=== PATIENT | female | born 1965 | race Caucasian/White ===

== ENCOUNTER → 2018-02-10 16:01 | Outpatient (CLI) | payer BC, SELFPAY ==
[2018-02-10 17:39] LABS: Absolute Lymphocyte Count 2.56 X10^3/ul (0.83-4.51); Absolute Neutrophil Count 3.1 X10^3/uL (2.0-7.7); Basophil# 0.03 X10^3/uL; Basophil% 0.5 % (0-1); Eosinophil# 0.04 X10^3/uL; Eosinophils% 0.6 % (0-5); Hematocrit 36.2 % (37-47); Hemoglobin 12.1 g/dl (12.0-15.0); Lymphocyte # 2.56 X10^3/ul (4.0); Lymphocyte % 41.2 % (19-41); Mean Corp Hgb Conc 33.4 g/gl (32-36); Mean Corpuscular Hgb 33.2 pg (27.0-32.0); Mean Corpuscular Volume 99.2 fL (81-99); Mean Platelet Vol. 10.7 fl (6.2-12.0); Monocyte# 0.44 X10^3/uL; Monocyte% 7.1 % (0-10); Neutrophil # 3.13 X10^3/uL (2.7-7.7); Neutrophil % 50.4 % (47-70); Platelet Count 222 K/mm3 (150-450); RBC Distribution Width CV 13.6 % (11.6-14.6); RBC Distribution Width SD 47.4 fl (35.1-43.9); Red Blood Count 3.65 M/mm3 (4.2-5.4); White Blood Count 6.2 K/mm3 (4.4-11.0)
[2018-02-10 17:47] LABS: ALB/GLOB Ratio 1.3 RATIO (0.9-2.4); AST(SGOT) 27 U/L (15-37); Alanine Aminotransfer ALT/SGPT 35 U/L (13-56); Albumin, Serum 4.2 g/dL (3.2-5.0); Alkaline Phosphatase 56 U/L (45-117); Anion Gap 7 (5-15); BUN 13 mg/dL (7-18); BUN/Creat Ratio 17.4 RATIO (10-20); Calcium,Total 8.8 mg/dL (8.5-10.1); Chloride 103 mmol/L (98-107); Creatinine, Serum 0.75 mg/dL (0.55-1.02); EST Glomerular Filtration Rate 87 mL/min (>60); Est Glom Filt Rate - Afr Amer 105 mL/min (>60); Globulin 3.2 g/dL (2.2-4.2); Glucose 90 mg/dL (74-106); Potassium 4.2 mmol/L (3.5-5.1); Protein, Total 7.4 g/dL (6.4-8.2); Sodium Level 137 mmol/L (136-145)
[2018-02-10 17:52] LABS: POSITIVE COUNT NO; POSITIVE DIFFERENTIAL NO; POSITIVE MORPHOLOGY NO
== END ==
PROVIDERS: Family Provider Family Medicine; PCP Family Medicine; Visit Provider Internal Medicine Rheumatology
DX: M06.09 Rheumatoid arthritis without rheumatoid factor, multiple sites (principal); Z79.899 Other long term (current) drug therapy; Q66.7 Congenital pes cavus
CPT/HCPCS: 36415; 80053; 85025

== ENCOUNTER → 2018-05-05 15:45 | Outpatient (CLI) | payer BC, SELFPAY ==
[2018-05-05 17:32] LABS: Absolute Lymphocyte Count 2.97 X10^3/ul (0.83-4.51); Absolute Neutrophil Count 3.2 X10^3/uL (2.0-7.7); Basophil# 0.02 X10^3/uL; Basophil% 0.3 % (0-1); Eosinophil# 0.04 X10^3/uL; Eosinophils% 0.6 % (0-5); Hematocrit 37.8 % (37-47); Hemoglobin 12.7 g/dl (12.0-15.0); Lymphocyte # 2.97 X10^3/ul (4.0); Mean Corp Hgb Conc 33.6 g/gl (32-36); Mean Corpuscular Hgb 33.2 pg (27.0-32.0); Mean Corpuscular Volume 98.7 fL (81-99); Mean Platelet Vol. 10.8 fl (6.2-12.0); Monocyte# 0.37 X10^3/uL; Monocyte% 5.6 % (0-10); Neutrophil # 3.19 X10^3/uL (2.7-7.7); Neutrophil % 48.3 % (47-70); Platelet Count 216 K/mm3 (150-450); RBC Distribution Width CV 13.3 % (11.6-14.6); RBC Distribution Width SD 46.9 fl (35.1-43.9); Red Blood Count 3.83 M/mm3 (4.2-5.4); White Blood Count 6.6 K/mm3 (4.4-11.0)
[2018-05-05 17:40] LABS: POSITIVE COUNT NO; POSITIVE DIFFERENTIAL NO; POSITIVE MORPHOLOGY NO
[2018-05-05 17:51] LABS: ALB/GLOB Ratio 1.4 RATIO (0.9-2.4); AST(SGOT) 31 U/L (15-37); Alanine Aminotransfer ALT/SGPT 44 U/L (13-56); Albumin, Serum 4.4 g/dL (3.2-5.0); Alkaline Phosphatase 50 U/L (45-117); Anion Gap 9 (5-15); BUN 17 mg/dL (7-18); BUN/Creat Ratio 20.2 RATIO (10-20); Calcium,Total 9.8 mg/dL (8.5-10.1); Chloride 103 mmol/L (98-107); Creatinine, Serum 0.84 mg/dL (0.55-1.02); EST Glomerular Filtration Rate 76 mL/min (>60); Est Glom Filt Rate - Afr Amer 92 mL/min (>60); Globulin 3.2 g/dL (2.2-4.2); Glucose 90 mg/dL (74-106); Potassium 3.9 mmol/L (3.5-5.1); Protein, Total 7.6 g/dL (6.4-8.2); Sodium Level 140 mmol/L (136-145)
== END ==
PROVIDERS: Family Provider Family Medicine; PCP Family Medicine; Visit Provider Internal Medicine Rheumatology
DX: M06.09 Rheumatoid arthritis without rheumatoid factor, multiple sites (principal); Z79.899 Other long term (current) drug therapy; Q66.7 Congenital pes cavus
CPT/HCPCS: 36415; 80053; 85025

== ENCOUNTER → 2018-07-31 07:35 | Outpatient (CLI) | payer BC, SELFPAY ==
[2018-07-31 08:08] LABS: Absolute Neutrophil Count 2.3 X10^3/uL (2.0-7.7); Basophil# 0.02 X10^3/uL; Basophil% 0.4 % (0-1); Eosinophil# 0.14 X10^3/uL; Eosinophils% 2.6 % (0-5); Hematocrit 38.5 % (37-47); Hemoglobin 12.9 g/dl (12.0-15.0); Lymphocyte % 46.7 % (19-41); Mean Corp Hgb Conc 33.5 g/gl (32-36); Mean Corpuscular Hgb 32.7 pg (27.0-32.0); Mean Corpuscular Volume 97.5 fL (81-99); Mean Platelet Vol. 11.2 fl (6.2-12.0); Monocyte% 7.5 % (0-10); Neutrophil # 2.29 X10^3/uL (2.7-7.7); Neutrophil % 42.8 % (47-70); Platelet Count 236 K/mm3 (150-450); RBC Distribution Width CV 13.2 % (11.6-14.6); RBC Distribution Width SD 46.1 fl (35.1-43.9); Red Blood Count 3.95 M/mm3 (4.2-5.4); White Blood Count 5.4 K/mm3 (4.4-11.0)
[2018-07-31 08:18] LABS: POSITIVE COUNT NO; POSITIVE DIFFERENTIAL NO; POSITIVE MORPHOLOGY NO
[2018-07-31 08:25] LABS: ALB/GLOB Ratio 1.2 RATIO (0.9-2.4); AST(SGOT) 20 U/L (15-37); Alanine Aminotransfer ALT/SGPT 42 U/L (13-56); Alkaline Phosphatase 63 U/L (45-117); Anion Gap 10 (5-15); BUN 14 mg/dL (7-18); BUN/Creat Ratio 18.5 RATIO (10-20); Calcium,Total 9.1 mg/dL (8.5-10.1); Chloride 105 mmol/L (98-107); Cholesterol 201 mg/dL (200); Creatinine, Serum 0.76 mg/dL (0.55-1.02); EST Glomerular Filtration Rate 86 mL/min (>60); Est Glom Filt Rate - Afr Amer 104 mL/min (>60); Globulin 3.4 g/dL (2.2-4.2); Glucose 92 mg/dL (74-106); High Density Lipoprotein 65 mg/dL; Potassium 3.8 mmol/L (3.5-5.1); Protein, Total 7.4 g/dL (6.4-8.2); Sodium Level 143 mmol/L (136-145); Triglycerides 125 mg/dL; Very Low Density Lipoprotein 25 mg/dL (5-40)
--- NOTE | 2018-07-31 15:51 | RAD_ITS ---
STUDY: X-RAY CHEST REASON FOR EXAM: Female, 52 years old. RA TECHNIQUE: PA and lateral views of the chest. COMPARISON: March 12, 2017 chest x-ray FINDINGS: The lungs are clear and expanded. There is no demonstrated pleural abnormality. Normal size heart. Normal mediastinum and maggie. Normal visualized pulmonary arteries. Normal visualized aortic arch and descending thoracic aorta. Normal visualized thoracic spine. Normal visualized ribs, clavicles, and shoulders. There is no demonstrated abnormality of the visualized soft tissue structures of the upper abdomen. RAD/Chest PA and Lateral IMPRESSION: Normal x-ray examination of the chest. Electronically Signed: Steph Griffith MD at 19:55 EDT Tel , Service support ,
[2018-08-05 09:48] LABS: QNTFERON TB Ag Minus Nil Value < 0 IU/mL (.); QNTFERON TB Ag Value 0.05 IU/mL (.); QNTFERON TB Mitogen Value > 10.00 IU/mL (.); QNTFERON TB Nil Value 0.06 IU/mL (.)
[2018-08-05 09:52] LABS: QNTIFERON TB Gold Negative (Negative)
== END ==
PROVIDERS: Family Provider Family Medicine; PCP Family Medicine; Visit Provider Internal Medicine Rheumatology
DX: M06.09 Rheumatoid arthritis without rheumatoid factor, multiple sites (principal); Z79.899 Other long term (current) drug therapy; Q66.7 Congenital pes cavus
CPT/HCPCS: 71046; 80053; 80061; 85025; 86480

== ENCOUNTER → 2018-09-29 15:43 | Outpatient (CLI) | payer BC, SELFPAY ==
[2018-09-29 17:46] LABS: ALB/GLOB Ratio 1.1 RATIO (0.9-2.4); AST(SGOT) 40 U/L (15-37); Alanine Aminotransfer ALT/SGPT 53 U/L (13-56); Albumin, Serum 3.9 g/dL (3.2-5.0); Alkaline Phosphatase 60 U/L (45-117); Anion Gap 11 (5-15); BUN 10 mg/dL (7-18); BUN/Creat Ratio 11.8 RATIO (10-20); Calcium,Total 8.7 mg/dL (8.5-10.1); Chloride 102 mmol/L (98-107); Cholesterol 192 mg/dL (200); Creatinine, Serum 0.85 mg/dL (0.55-1.02); EST Glomerular Filtration Rate 75 mL/min (>60); Est Glom Filt Rate - Afr Amer 91 mL/min (>60); Globulin 3.4 g/dL (2.2-4.2); Glucose 83 mg/dL (74-106); High Density Lipoprotein 73 mg/dL; Potassium 3.9 mmol/L (3.5-5.1); Protein, Total 7.3 g/dL (6.4-8.2); Sodium Level 139 mmol/L (136-145); Triglycerides 122 mg/dL; Very Low Density Lipoprotein 24 mg/dL (5-40)
[2018-09-29 17:57] LABS: Absolute Lymphocyte Count 2.47 X10^3/ul (0.83-4.51); Absolute Neutrophil Count 2.5 X10^3/uL (2.0-7.7); Basophil# 0.01 X10^3/uL; Basophil% 0.2 % (0-1); Eosinophil# 0.07 X10^3/uL; Eosinophils% 1.3 % (0-5); Hematocrit 37.3 % (37-47); Hemoglobin 12.3 g/dl (12.0-15.0); Lymphocyte # 2.47 X10^3/ul (4.0); Lymphocyte % 45.9 % (19-41); Mean Corpuscular Hgb 31.9 pg (27.0-32.0); Mean Corpuscular Volume 96.6 fL (81-99); Mean Platelet Vol. 10.4 fl (6.2-12.0); Monocyte# 0.34 X10^3/uL; Monocyte% 6.3 % (0-10); Neutrophil # 2.49 X10^3/uL (2.7-7.7); Neutrophil % 46.3 % (47-70); Platelet Count 251 K/mm3 (150-450); RBC Distribution Width CV 13.9 % (11.6-14.6); RBC Distribution Width SD 47.1 fl (35.1-43.9); Red Blood Count 3.86 M/mm3 (4.2-5.4); White Blood Count 5.4 K/mm3 (4.4-11.0)
[2018-09-29 18:24] LABS: POSITIVE COUNT NO; POSITIVE DIFFERENTIAL NO; POSITIVE MORPHOLOGY NO
== END ==
PROVIDERS: Family Provider Family Medicine; PCP Family Medicine; Referring Provider Internal Medicine Rheumatology; Visit Provider Internal Medicine Rheumatology
DX: M06.09 Rheumatoid arthritis without rheumatoid factor, multiple sites (principal); Z79.899 Other long term (current) drug therapy; Q66.7 Congenital pes cavus
CPT/HCPCS: 36415; 80053; 80061; 85025

== ENCOUNTER → 2018-11-24 15:42 | Outpatient (CLI) | payer BC, SELFPAY ==
[2018-11-24 17:43] LABS: Absolute Lymphocyte Count 2.18 X10^3/ul (0.83-4.51); Absolute Neutrophil Count 3.5 X10^3/uL (2.0-7.7); Basophil# 0.02 X10^3/uL; Basophil% 0.3 % (0-1); Eosinophil# 0.06 X10^3/uL; Hematocrit 37.8 % (37-47); Hemoglobin 12.7 g/dl (12.0-15.0); Lymphocyte # 2.18 X10^3/ul (4.0); Lymphocyte % 35.3 % (19-41); Mean Corp Hgb Conc 33.6 g/gl (32-36); Mean Corpuscular Hgb 32.1 pg (27.0-32.0); Mean Corpuscular Volume 95.5 fL (81-99); Mean Platelet Vol. 10.4 fl (6.2-12.0); Monocyte# 0.41 X10^3/uL; Monocyte% 6.6 % (0-10); Neutrophil # 3.49 X10^3/uL (2.7-7.7); Neutrophil % 56.6 % (47-70); Platelet Count 234 K/mm3 (150-450); RBC Distribution Width CV 14.2 % (11.6-14.6); RBC Distribution Width SD 47.7 fl (35.1-43.9); Red Blood Count 3.96 M/mm3 (4.2-5.4); White Blood Count 6.2 K/mm3 (4.4-11.0)
[2018-11-24 17:51] LABS: POSITIVE COUNT NO; POSITIVE DIFFERENTIAL NO; POSITIVE MORPHOLOGY NO
[2018-11-24 18:12] LABS: ALB/GLOB Ratio 1.4 RATIO (0.9-2.4); AST(SGOT) 23 U/L (15-37); Alanine Aminotransfer ALT/SGPT 36 U/L (13-56); Albumin, Serum 4.3 g/dL (3.2-5.0); Alkaline Phosphatase 63 U/L (45-117); Anion Gap 8 (5-15); BUN 16 mg/dL (7-18); BUN/Creat Ratio 19.5 RATIO (10-20); Calcium,Total 8.9 mg/dL (8.5-10.1); Chloride 104 mmol/L (98-107); Creatinine, Serum 0.82 mg/dL (0.55-1.02); EST Glomerular Filtration Rate 78 mL/min (>60); Est Glom Filt Rate - Afr Amer 94 mL/min (>60); Glucose 85 mg/dL (74-106); Potassium 3.9 mmol/L (3.5-5.1); Protein, Total 7.3 g/dL (6.4-8.2); Sodium Level 137 mmol/L (136-145)
== END ==
PROVIDERS: Family Provider Family Medicine; PCP Family Medicine; Referring Provider Internal Medicine Rheumatology; Visit Provider Internal Medicine Rheumatology
DX: M06.09 Rheumatoid arthritis without rheumatoid factor, multiple sites (principal); Z79.899 Other long term (current) drug therapy; Q66.7 Congenital pes cavus
CPT/HCPCS: 36415; 80053; 85025

== ENCOUNTER → 2019-01-22 11:17 | Outpatient (CLI) | payer BC, SELFPAY ==
[2019-01-22 09:24] VITALS: BMI 33.3
--- NOTE | 2019-01-22 09:30 | ASPS_PTH ---
PATIENT: NELSON HENSLEY LOC: [facility] U#:[id number] AGE/SX: 59/F ROOM: RE01/22/[address]: Dr. Dash Aranda MD : 1965 BED: DIS: SPEC #: [id number] RECD: 01/22/19 11:14 STATUS: KRISTOFER YASMIN #: [id number] GILDARDO: 01/22/19 09:[address]: Dash Aranda DEPT: CYTOLOGY RECD BY: Ashvin Bustamante ENTERED: 01/22/19 13:16 SP TYPE: ASPIRATION OTHR DR: Dr. Herman Del Cid MD Tissues: Thyroid gland, NOS Procedures: Special Stain Group II Cytology Other HEADER OPERATION: Left thyroid FNA PRE-OP DIAGNOSIS: Multinodular goiter E04.2 TISSUE SUBMITTED: Left thyroid slides x6 DIAGNOSIS CYTOLOGY Fine needle aspiration, left thyroid nodule (smears): Suboptimal for evaluation. Negative for malignant cells. See comment. AM:alexis 01/23/19 COMMENT The specimen contains groups and clusters of benign follicular cells and minimal colloid-like material. The specimen is insufficient for further evaluation. Clinical correlation is suggested. CYTOLOGY STUDY Slides are reviewed. CYTOLOGY GROSS Received are six smears labeled with the patient's name and designated per the requisition as left thyroid. Submitted for staining. / 01/22/19 TC:5 CPT: 15061
== END ==
PROVIDERS: Family Provider Family Medicine; PCP Family Medicine; Referring Provider Surgery; Visit Provider Surgery
DX: E04.2 Nontoxic multinodular goiter (principal)
CPT/HCPCS: 88161; 88313

== ENCOUNTER → 2019-02-17 | Outpatient (CLI) | payer BC, SELFPAY ==
[2019-01-22 09:24] VITALS: BMI 33.3
[2019-02-17 17:43] LABS: Absolute Lymphocyte Count 2.42 X10^3/ul (0.83-4.51); Absolute Neutrophil Count 3.2 X10^3/uL (2.0-7.7); Basophil# 0.01 X10^3/uL; Basophil% 0.2 % (0-1); Eosinophil# 0.04 X10^3/uL; Eosinophils% 0.7 % (0-5); Hematocrit 37.3 % (37-47); Hemoglobin 12.5 g/dl (12.0-15.0); Lymphocyte # 2.42 X10^3/ul (4.0); Lymphocyte % 39.7 % (19-41); Mean Corp Hgb Conc 33.5 g/gl (32-36); Mean Corpuscular Hgb 31.4 pg (27.0-32.0); Mean Corpuscular Volume 93.7 fL (81-99); Mean Platelet Vol. 10.8 fl (6.2-12.0); Monocyte# 0.43 X10^3/uL; Monocyte% 7.1 % (0-10); Neutrophil # 3.17 X10^3/uL (2.7-7.7); Platelet Count 233 K/mm3 (150-450); RBC Distribution Width CV 14.5 % (11.6-14.6); Red Blood Count 3.98 M/mm3 (4.2-5.4); White Blood Count 6.1 K/mm3 (4.4-11.0)
[2019-02-17 17:48] LABS: ALB/GLOB Ratio 1.4 RATIO (0.9-2.4); AST(SGOT) 27 U/L (15-37); Alanine Aminotransfer ALT/SGPT 42 U/L (13-56); Albumin, Serum 4.1 g/dL (3.2-5.0); Alkaline Phosphatase 65 U/L (45-117); Anion Gap 6 (5-15); BUN 12 mg/dL (7-18); BUN/Creat Ratio 15.4 RATIO (10-20); Calcium,Total 8.7 mg/dL (8.5-10.1); Chloride 105 mmol/L (98-107); Creatinine, Serum 0.78 mg/dL (0.55-1.02); EST Glomerular Filtration Rate 83 mL/min (>60); Est Glom Filt Rate - Afr Amer 100 mL/min (>60); Glucose 89 mg/dL (74-106); Potassium 3.8 mmol/L (3.5-5.1); Protein, Total 7.1 g/dL (6.4-8.2); Sodium Level 139 mmol/L (136-145)
[2019-02-17 17:53] LABS: POSITIVE COUNT NO; POSITIVE DIFFERENTIAL NO; POSITIVE MORPHOLOGY NO
== END | disposition home or self-care (01) ==
LOC: MTLAB 15:46
PROVIDERS: Family Provider Family Medicine; PCP Family Medicine; Referring Provider Internal Medicine Rheumatology; Visit Provider Internal Medicine Rheumatology
DX: M06.09 Rheumatoid arthritis without rheumatoid factor, multiple sites (principal); Q66.7 Congenital pes cavus; Z79.899 Other long term (current) drug therapy
CPT/HCPCS: 36415; 80053; 85025

== ENCOUNTER → 2019-05-19 | Outpatient (CLI) | payer BC, SELFPAY ==
[2019-01-22 09:24] VITALS: BMI 33.3
[2019-05-19 17:55] LABS: Absolute Lymphocyte Count 3.07 X10^3/ul (0.83-4.51); Basophil# 0.02 X10^3/uL; Basophil% 0.3 % (0-1); Eosinophil# 0.06 X10^3/uL; Eosinophils% 0.9 % (0-5); Hematocrit 38.6 % (37-47); Hemoglobin 12.8 g/dl (12.0-15.0); Lymphocyte # 3.07 X10^3/ul (4.0); Lymphocyte % 45.6 % (19-41); Mean Corp Hgb Conc 33.2 g/gl (32-36); Mean Corpuscular Hgb 30.7 pg (27.0-32.0); Mean Corpuscular Volume 92.6 fL (81-99); Mean Platelet Vol. 10.7 fl (6.2-12.0); Monocyte# 0.55 X10^3/uL; Monocyte% 8.2 % (0-10); Neutrophil # 3.03 X10^3/uL (2.7-7.7); Platelet Count 232 K/mm3 (150-450); RBC Distribution Width CV 13.8 % (11.6-14.6); RBC Distribution Width SD 45.3 fl (35.1-43.9); Red Blood Count 4.17 M/mm3 (4.2-5.4); White Blood Count 6.7 K/mm3 (4.4-11.0)
[2019-05-19 17:56] LABS: POSITIVE COUNT NO; POSITIVE DIFFERENTIAL NO; POSITIVE MORPHOLOGY NO
[2019-05-19 17:57] LABS: ALB/GLOB Ratio 1.2 RATIO (0.9-2.4); AST(SGOT) 32 U/L (15-37); Alanine Aminotransfer ALT/SGPT 50 U/L (13-56); Alkaline Phosphatase 67 U/L (45-117); Anion Gap 9 (5-15); BUN 15 mg/dL (7-18); BUN/Creat Ratio 16.9 RATIO (10-20); Chloride 105 mmol/L (98-107); Creatinine, Serum 0.89 mg/dL (0.55-1.02); EST Glomerular Filtration Rate 71 mL/min (>60); Est Glom Filt Rate - Afr Amer 86 mL/min (>60); Globulin 3.4 g/dL (2.2-4.2); Glucose 93 mg/dL (74-106); Potassium 3.7 mmol/L (3.5-5.1); Protein, Total 7.4 g/dL (6.4-8.2); Sodium Level 140 mmol/L (136-145)
== END | disposition home or self-care (01) ==
LOC: MTLAB 15:46
PROVIDERS: Family Provider Family Medicine; PCP Family Medicine; Referring Provider Internal Medicine Rheumatology; Visit Provider Internal Medicine Rheumatology
DX: M06.09 Rheumatoid arthritis without rheumatoid factor, multiple sites (principal); Z79.899 Other long term (current) drug therapy; Q66.7 Congenital pes cavus
CPT/HCPCS: 36415; 80053; 85025

== ENCOUNTER → 2019-08-17 15:53 | Outpatient (CLI) | payer BC, SELFPAY ==
[2019-01-22 09:24] VITALS: BMI 33.3
[2019-08-17 18:11] LABS: Absolute Lymphocyte Count 2.96 X10^3/uL (0.83-4.51); Absolute Neutrophil Count 2.9 X10^3/uL (2.0-7.7); Basophil# 0.02 X10^3/uL; Basophil% 0.3 % (0-1); Eosinophil# 0.06 X10^3/uL; Hematocrit 40.9 % (37-47); Hemoglobin 13.1 g/dL (12.0-15.0); Lymphocyte # 2.96 X10^3/ul (4.0); Lymphocyte % 47.5 % (19-41); Mean Corpuscular Volume 96.7 fL (81-99); Mean Platelet Vol. 10.9 fl (6.2-12.0); Monocyte# 0.33 X10^3/uL; Monocyte% 5.3 % (0-10); NRBC Flagged by Analyzer 0 % (0-5); Neutrophil # 2.85 X10^3/uL (2.7-7.7); Neutrophil % 45.7 % (47-70); Platelet Count 229 K/mm3 (150-450); RBC Distribution Width CV 13.8 % (11.6-14.6); RBC Distribution Width SD 48.8 fl (35.1-43.9); Red Blood Count 4.23 M/mm3 (4.2-5.4); White Blood Count 6.2 K/mm3 (4.4-11.0)
[2019-08-17 18:27] LABS: ALB/GLOB Ratio 1.1 RATIO (0.9-2.4); AST(SGOT) 25 U/L (15-37); Alanine Aminotransfer ALT/SGPT 50 U/L (13-56); Albumin, Serum 4.2 g/dL (3.2-5.0); Alkaline Phosphatase 81 U/L (45-117); Anion Gap 7 (5-15); BUN 10 mg/dL (7-18); BUN/Creat Ratio 11.9 RATIO (10-20); Chloride 104 mmol/L (98-107); Creatinine, Serum 0.84 mg/dL (0.55-1.02); EST Glomerular Filtration Rate 76 mL/min (>60); Est Glom Filt Rate - Afr Amer 92 mL/min (>60); Globulin 3.7 g/dL (2.2-4.2); Glucose 88 mg/dL (74-106); Potassium 3.5 mmol/L (3.5-5.1); Protein, Total 7.9 g/dL (6.4-8.2); Sodium Level 138 mmol/L (136-145)
== END ==
PROVIDERS: Family Provider Family Medicine; PCP Family Medicine; Referring Provider Internal Medicine Rheumatology; Visit Provider Internal Medicine Rheumatology
DX: M06.09 Rheumatoid arthritis without rheumatoid factor, multiple sites (principal); Z79.899 Other long term (current) drug therapy; Q66.70 Congenital pes cavus, unspecified foot
CPT/HCPCS: 36415; 80053; 85025

== ENCOUNTER → 2019-11-16 16:02 | Outpatient (CLI) | payer BC, SELFPAY ==
[2019-01-22 09:24] VITALS: BMI 33.3
[2019-11-16 18:11] LABS: Absolute Lymphocyte Count 2.98 X10^3/uL (0.83-4.51); Absolute Neutrophil Count 5.2 X10^3/uL (2.0-7.7); Basophil# 0.03 X10^3/uL; Basophil% 0.3 % (0-1); Eosinophil# 0.05 X10^3/uL; Eosinophils% 0.6 % (0-5); Hematocrit 38.7 % (37-47); Hemoglobin 12.8 g/dL (12.0-15.0); Lymphocyte # 2.98 X10^3/ul (4.0); Lymphocyte % 33.3 % (19-41); Mean Corp Hgb Conc 33.1 g/dL (32-36); Mean Corpuscular Hgb 31.5 pg (27.0-32.0); Mean Corpuscular Volume 95.3 fL (81-99); Mean Platelet Vol. 10.9 fl (6.2-12.0); Monocyte# 0.67 X10^3/uL; Monocyte% 7.5 % (0-10); NRBC Flagged by Analyzer 0 % (0-5); Neutrophil # 5.19 X10^3/uL (2.7-7.7); Neutrophil % 58.1 % (47-70); Platelet Count 248 K/mm3 (150-450); RBC Distribution Width SD 49.1 fl (35.1-43.9); Red Blood Count 4.06 M/mm3 (4.2-5.4); White Blood Count 8.9 K/mm3 (4.4-11.0)
[2019-11-16 18:15] LABS: ALB/GLOB Ratio 1.1 RATIO (0.9-2.4); AST(SGOT) 25 U/L (15-37); Alanine Aminotransfer ALT/SGPT 53 U/L (13-56); Alkaline Phosphatase 82 U/L (45-117); Anion Gap 6 (5-15); BUN 13 mg/dL (7-18); BUN/Creat Ratio 14.8 RATIO (10-20); Calcium,Total 9.1 mg/dL (8.5-10.1); Chloride 103 mmol/L (98-107); Creatinine, Serum 0.88 mg/dL (0.55-1.02); EST Glomerular Filtration Rate 72 mL/min (>60); Est Glom Filt Rate - Afr Amer 87 mL/min (>60); Globulin 3.6 g/dL (2.2-4.2); Glucose 83 mg/dL (74-106); Potassium 3.5 mmol/L (3.5-5.1); Protein, Total 7.6 g/dL (6.4-8.2); Sodium Level 136 mmol/L (136-145)
== END ==
PROVIDERS: Family Provider Family Medicine; PCP Family Medicine; Referring Provider Internal Medicine Rheumatology; Visit Provider Internal Medicine Rheumatology
DX: M06.09 Rheumatoid arthritis without rheumatoid factor, multiple sites (principal); Q66.70 Congenital pes cavus, unspecified foot; Z79.899 Other long term (current) drug therapy
CPT/HCPCS: 36415; 80053; 85025

== ENCOUNTER → 2020-02-23 08:31 | Outpatient (CLI) | payer BC, SELFPAY ==
[2019-01-22 09:24] VITALS: BMI 33.3
[2020-02-23 09:52] LABS: Absolute Lymphocyte Count 2.58 X10^3/uL (0.83-4.51); Basophil# 0.03 X10^3/uL; Basophil% 0.5 % (0-1); Eosinophil# 0.05 X10^3/uL; Eosinophils% 0.8 % (0-5); Hematocrit 41.5 % (37-47); Hemoglobin 13.7 g/dL (12.0-15.0); Lymphocyte # 2.58 X10^3/ul (4.0); Lymphocyte % 42.1 % (19-41); Mean Corpuscular Hgb 31.4 pg (27.0-32.0); Mean Corpuscular Volume 95.2 fL (81-99); Mean Platelet Vol. 10.8 fl (6.2-12.0); Monocyte# 0.49 X10^3/uL; NRBC Flagged by Analyzer 0 % (0-5); Neutrophil # 2.97 X10^3/uL (2.7-7.7); Neutrophil % 48.4 % (47-70); Platelet Count 262 K/mm3 (150-450); RBC Distribution Width CV 13.4 % (11.6-14.6); Red Blood Count 4.36 M/mm3 (4.2-5.4); White Blood Count 6.1 K/mm3 (4.4-11.0)
[2020-02-23 10:22] LABS: AST(SGOT) 21 U/L (15-37); Alanine Aminotransfer ALT/SGPT 40 U/L (13-56); Albumin, Serum 3.7 g/dL (3.2-5.0); Alkaline Phosphatase 77 U/L (45-117); Anion Gap 5 (5-15); BUN 14 mg/dL (7-18); BUN/Creat Ratio 16.6 RATIO (10-20); Calcium,Total 9.4 mg/dL (8.5-10.1); Chloride 106 mmol/L (98-107); Creatinine, Serum 0.84 mg/dL (0.55-1.02); EST Glomerular Filtration Rate 75 mL/min (>60); Est Glom Filt Rate - Afr Amer 91 mL/min (>60); Globulin 3.8 g/dL (2.2-4.2); Glucose 99 mg/dL (74-106); Potassium 3.8 mmol/L (3.5-5.1); Protein, Total 7.5 g/dL (6.4-8.2); Sodium Level 139 mmol/L (136-145)
== END ==
PROVIDERS: PCP Family Medicine; Referring Provider Internal Medicine Rheumatology; Visit Provider Internal Medicine Rheumatology
DX: M06.09 Rheumatoid arthritis without rheumatoid factor, multiple sites (principal); Q66.70 Congenital pes cavus, unspecified foot; Z79.899 Other long term (current) drug therapy
CPT/HCPCS: 36415; 80053; 85025

== ENCOUNTER → 2020-05-19 | Outpatient (CLI) | payer BC, SELFPAY ==
[2019-01-22 09:24] VITALS: BMI 33.3
[2020-05-19 13:20] LABS: Absolute Lymphocyte Count 2.93 X10^3/uL (0.83-4.51); Absolute Neutrophil Count 3.2 X10^3/uL (2.0-7.7); Basophil# 0.04 X10^3/uL; Basophil% 0.6 % (0-1); Eosinophil# 0.04 X10^3/uL; Eosinophils% 0.6 % (0-5); Hematocrit 39.1 % (37-47); Hemoglobin 12.5 g/dL (12.0-15.0); Lymphocyte # 2.93 X10^3/ul (4.0); Lymphocyte % 43.5 % (19-41); Mean Corpuscular Hgb 31.3 pg (27.0-32.0); Mean Corpuscular Volume 97.8 fL (81-99); Mean Platelet Vol. 11.1 fl (6.2-12.0); Monocyte# 0.49 X10^3/uL; Monocyte% 7.3 % (0-10); NRBC Flagged by Analyzer 0 % (0-5); Neutrophil # 3.23 X10^3/uL (2.7-7.7); Neutrophil % 47.9 % (47-70); Platelet Count 263 K/mm3 (150-450); RBC Distribution Width CV 13.7 % (11.6-14.6); RBC Distribution Width SD 48.5 fl (35.1-43.9); White Blood Count 6.7 K/mm3 (4.4-11.0)
[2020-05-19 13:38] LABS: ALB/GLOB Ratio 1.2 RATIO (0.9-2.4); AST(SGOT) 22 U/L (15-37); Alanine Aminotransfer ALT/SGPT 34 U/L (13-56); Alkaline Phosphatase 77 U/L (45-117); Anion Gap 5 (5-15); BUN 11 mg/dL (7-18); Calcium,Total 9.2 mg/dL (8.5-10.1); Chloride 106 mmol/L (98-107); Creatinine, Serum 0.79 mg/dL (0.55-1.02); EST Glomerular Filtration Rate 82 mL/min (>60); Est Glom Filt Rate - Afr Amer 99 mL/min (>60); Globulin 3.3 g/dL (2.2-4.2); Glucose 95 mg/dL (74-106); Potassium 3.7 mmol/L (3.5-5.1); Protein, Total 7.3 g/dL (6.4-8.2); Sodium Level 140 mmol/L (136-145)
== END | disposition home or self-care (01) ==
LOC: LABSPEC 11:34
PROVIDERS: PCP Family Medicine; Referring Provider Internal Medicine Rheumatology; Visit Provider Internal Medicine Rheumatology
DX: M06.072 Rheumatoid arthritis without rheumatoid factor, left ankle and foot (principal); Q66.70 Congenital pes cavus, unspecified foot; Z79.899 Other long term (current) drug therapy
CPT/HCPCS: 80053; 85025

== ENCOUNTER → 2020-07-07 07:48 | Outpatient (CLI) | payer BC, SELFPAY ==
[2019-01-22 09:24] VITALS: BMI 33.3
--- NOTE | 2020-07-07 07:49 | US_ITS ---
STUDY: THYROID ULTRASOUND REASON FOR EXAM: Female, 54 years old. Nodules TECHNIQUE: Ultrasound evaluation of the thyroid was performed with real-time and static du-scale imaging. COMPARISON: None. FINDINGS: RIGHT LOBE: The right lobe of the thyroid gland measures 4.5 cm x 1.3 cm x 1.6 cm. There is a heterogeneous echotexture. Multiple nodules seen throughout the right lobe. The largest is a solid/cystic nodule measuring 5 mm x 5 mm x 3 mm. This is in the mid pole. LEFT LOBE: The left lobe of the thyroid gland measures 4.1 cm x 1.4 cm x 1.3 cm. There is a heterogeneous echotexture. Multiple nodules are once again seen in the left lobe. The largest is in the upper pole and measures 1.6 cm x 1 cm x 0.5 cm. This is a hypoechoic solid nodule. ISTHMUS: The isthmus measures 2 mm. The regional lymph nodes are normal. US/Thyroid IMPRESSION: Heterogeneous appearance of both lobes of the thyroid with multiple nodules in both lobes as described. The largest nodule in the left lobe is solid and measures 1.6 cm x 1 cm x 0.5 cm. This is in the upper pole Electronically Signed: Celio Bertrand, at 13:30 EDT , Service support ,
== END ==
PROVIDERS: PCP Family Medicine; Referring Provider Surgery; Visit Provider Surgery
DX: E04.2 Nontoxic multinodular goiter (principal)
CPT/HCPCS: 76536

== ENCOUNTER → 2020-08-15 15:50 | Outpatient (CLI) | payer BC, SELFPAY ==
[2020-07-11 11:42] VITALS: BMI 33.3
[2020-08-15 18:25] LABS: Absolute Lymphocyte Count 3.46 X10^3/uL (0.83-4.51); Absolute Neutrophil Count 3.6 X10^3/uL (2.0-7.7); Basophil# 0.03 X10^3/uL; Basophil% 0.4 % (0-1); Eosinophil# 0.09 X10^3/uL; Eosinophils% 1.2 % (0-5); Hematocrit 40.3 % (37-47); Hemoglobin 13.3 g/dL (12.0-15.0); Lymphocyte # 3.46 X10^3/ul (4.0); Lymphocyte % 45.5 % (19-41); Mean Corpuscular Hgb 31.1 pg (27.0-32.0); Mean Corpuscular Volume 94.4 fL (81-99); Mean Platelet Vol. 10.9 fl (6.2-12.0); Monocyte# 0.37 X10^3/uL; Monocyte% 4.9 % (0-10); NRBC Flagged by Analyzer 0 % (0-5); Neutrophil # 3.64 X10^3/uL (2.7-7.7); Neutrophil % 47.9 % (47-70); Platelet Count 265 K/mm3 (150-450); RBC Distribution Width CV 13.4 % (11.6-14.6); RBC Distribution Width SD 46.3 fl (35.1-43.9); Red Blood Count 4.27 M/mm3 (4.2-5.4); White Blood Count 7.6 K/mm3 (4.4-11.0)
[2020-08-15 18:46] LABS: ALB/GLOB Ratio 1.1 RATIO (0.9-2.4); AST(SGOT) 24 U/L (15-37); Alanine Aminotransfer ALT/SGPT 33 U/L (13-56); Albumin, Serum 4.1 g/dL (3.2-5.0); Alkaline Phosphatase 86 U/L (45-117); Anion Gap 3 (5-15); BUN 13 mg/dL (7-18); BUN/Creat Ratio 15.2 RATIO (10-20); Calcium,Total 9.4 mg/dL (8.5-10.1); Chloride 105 mmol/L (98-107); Creatinine, Serum 0.85 mg/dL (0.55-1.02); EST Glomerular Filtration Rate 74 mL/min (>60); Est Glom Filt Rate - Afr Amer 90 mL/min (>60); Globulin 3.6 g/dL (2.2-4.2); Glucose 97 mg/dL (74-106); Potassium 3.4 mmol/L (3.5-5.1); Protein, Total 7.7 g/dL (6.4-8.2); Sodium Level 139 mmol/L (136-145)
== END ==
PROVIDERS: PCP Family Medicine; Referring Provider Internal Medicine Rheumatology; Visit Provider Internal Medicine Rheumatology
DX: M06.072 Rheumatoid arthritis without rheumatoid factor, left ankle and foot (principal); Q66.70 Congenital pes cavus, unspecified foot; Z79.899 Other long term (current) drug therapy
CPT/HCPCS: 36415; 80053; 85025

== ENCOUNTER → 2020-10-11 | Outpatient (CLI) | payer BC, SELFPAY ==
[2020-07-11 11:42] VITALS: BMI 33.3
[2020-10-11 11:20] LABS: Absolute Lymphocyte Count 2.82 X10^3/uL (0.83-4.51); Absolute Neutrophil Count 2.4 X10^3/uL (2.0-7.7); Basophil# 0.04 X10^3/uL; Basophil% 0.7 % (0-1); Eosinophils% 1.8 % (0-5); Hematocrit 40.6 % (37-47); Hemoglobin 12.8 g/dL (12.0-15.0); Lymphocyte # 2.82 X10^3/ul (4.0); Lymphocyte % 49.5 % (19-41); Mean Corp Hgb Conc 31.5 g/dL (32-36); Mean Corpuscular Hgb 30.2 pg (27.0-32.0); Mean Corpuscular Volume 95.8 fL (81-99); Mean Platelet Vol. 10.6 fl (6.2-12.0); Monocyte# 0.34 X10^3/uL; NRBC Flagged by Analyzer 0 % (0-5); Neutrophil # 2.39 X10^3/uL (2.7-7.7); Neutrophil % 41.8 % (47-70); Platelet Count 262 K/mm3 (150-450); RBC Distribution Width CV 14.5 % (11.6-14.6); Red Blood Count 4.24 M/mm3 (4.2-5.4); White Blood Count 5.7 K/mm3 (4.4-11.0)
[2020-10-11 11:29] LABS: ALB/GLOB Ratio 1.2 RATIO (0.9-2.4); AST(SGOT) 23 U/L (15-37); Alanine Aminotransfer ALT/SGPT 39 U/L (13-56); Albumin, Serum 4.2 g/dL (3.2-5.0); Alkaline Phosphatase 85 U/L (45-117); Anion Gap 3 (5-15); BUN 10 mg/dL (7-18); Calcium,Total 9.1 mg/dL (8.5-10.1); Chloride 107 mmol/L (98-107); Creatinine, Serum 0.84 mg/dL (0.55-1.02); EST Glomerular Filtration Rate 76 mL/min (>60); Est Glom Filt Rate - Afr Amer 92 mL/min (>60); Globulin 3.4 g/dL (2.2-4.2); Glucose 89 mg/dL (74-106); Potassium 3.8 mmol/L (3.5-5.1); Protein, Total 7.6 g/dL (6.4-8.2); Sodium Level 140 mmol/L (136-145)
== END | disposition home or self-care (01) ==
LOC: LABSPEC 10:25
PROVIDERS: PCP Family Medicine; Referring Provider Internal Medicine Rheumatology; Visit Provider Internal Medicine Rheumatology
DX: M06.072 Rheumatoid arthritis without rheumatoid factor, left ankle and foot (principal); Z79.899 Other long term (current) drug therapy; Q66.70 Congenital pes cavus, unspecified foot
CPT/HCPCS: 80053; 85025

== ENCOUNTER → 2020-12-26 | Outpatient (CLI) | payer OTHER, SELFPAY ==
[2020-07-11 11:42] VITALS: BMI 33.3
[2020-12-26 11:03] LABS: Absolute Lymphocyte Count 2.87 X10^3/uL (0.83-4.51); Absolute Neutrophil Count 3.3 X10^3/uL (2.0-7.7); Basophil# 0.03 X10^3/uL; Basophil% 0.5 % (0-1); Eosinophil# 0.03 X10^3/uL; Eosinophils% 0.5 % (0-5); Hematocrit 41.1 % (37-47); Hemoglobin 13.3 g/dL (12.0-15.0); Lymphocyte # 2.87 X10^3/ul (4.0); Lymphocyte % 43.3 % (19-41); Mean Corp Hgb Conc 32.4 g/dL (32-36); Mean Corpuscular Hgb 30.7 pg (27.0-32.0); Mean Corpuscular Volume 94.9 fL (81-99); Mean Platelet Vol. 10.7 fl (6.2-12.0); Monocyte# 0.39 X10^3/uL; Monocyte% 5.9 % (0-10); NRBC Flagged by Analyzer 0 % (0-5); Neutrophil % 49.6 % (47-70); Platelet Count 252 K/mm3 (150-450); RBC Distribution Width CV 13.2 % (11.6-14.6); RBC Distribution Width SD 46.2 fl (35.1-43.9); Red Blood Count 4.33 M/mm3 (4.2-5.4); White Blood Count 6.6 K/mm3 (4.4-11.0)
[2020-12-26 11:14] LABS: ALB/GLOB Ratio 1.2 RATIO (0.9-2.4); AST(SGOT) 21 U/L (15-37); Alanine Aminotransfer ALT/SGPT 44 U/L (13-56); Albumin, Serum 4.2 g/dL (3.2-5.0); Alkaline Phosphatase 85 U/L (45-117); Anion Gap 7 (5-15); BUN 15 mg/dL (7-18); BUN/Creat Ratio 17.2 RATIO (10-20); Chloride 102 mmol/L (98-107); Creatinine, Serum 0.87 mg/dL (0.55-1.02); EST Glomerular Filtration Rate 72 mL/min (>60); Est Glom Filt Rate - Afr Amer 87 mL/min (>60); Globulin 3.5 g/dL (2.2-4.2); Glucose 90 mg/dL (74-106); Potassium 3.7 mmol/L (3.5-5.1); Protein, Total 7.7 g/dL (6.4-8.2); Sodium Level 138 mmol/L (136-145)
== END | disposition home or self-care (01) ==
LOC: LABSPEC 10:48
PROVIDERS: PCP Family Medicine; Referring Provider Internal Medicine Rheumatology; Visit Provider Internal Medicine Rheumatology
DX: M06.09 Rheumatoid arthritis without rheumatoid factor, multiple sites (principal); Q66.70 Congenital pes cavus, unspecified foot; Z79.899 Other long term (current) drug therapy
CPT/HCPCS: 80053; 85025

== ENCOUNTER → 2021-03-28 15:44 | Outpatient (CLI) | payer OTHER, SELFPAY ==
[2020-07-11 11:42] VITALS: BMI 33.3
[2021-03-28 17:31] LABS: Absolute Lymphocyte Count 3.51 X10^3/uL (0.83-4.51); Absolute Neutrophil Count 2.9 X10^3/uL (2.0-7.7); Basophil# 0.03 X10^3/uL; Basophil% 0.4 % (0-1); Eosinophil# 0.08 X10^3/uL; Eosinophils% 1.1 % (0-5); Hemoglobin 12.5 g/dL (12.0-15.0); Lymphocyte # 3.51 X10^3/ul (0.83-4.51); Mean Corp Hgb Conc 32.9 g/dL (32-36); Mean Corpuscular Hgb 30.9 pg (27.0-32.0); Mean Corpuscular Volume 93.8 fL (81-99); Mean Platelet Vol. 10.5 fl (6.2-12.0); Monocyte# 0.52 X10^3/uL; Monocyte% 7.4 % (0-10); NRBC Flagged by Analyzer 0 % (0-5); Neutrophil # 2.87 X10^3/uL (2.7-7.7); Platelet Count 250 K/mm3 (150-450); RBC Distribution Width CV 14.2 % (11.6-14.6); RBC Distribution Width SD 48.5 fl (35.1-43.9); Red Blood Count 4.05 M/mm3 (4.2-5.4)
[2021-03-28 17:47] LABS: ALB/GLOB Ratio 1.2 RATIO (0.9-2.4); AST(SGOT) 19 U/L (15-37); Alanine Aminotransfer ALT/SGPT 46 U/L (13-56); Albumin, Serum 4.1 g/dL (3.2-5.0); Alkaline Phosphatase 79 U/L (45-117); Anion Gap 6 (5-15); BUN 14 mg/dL (7-18); BUN/Creat Ratio 17.1 RATIO (10-20); Chloride 101 mmol/L (98-107); Creatinine, Serum 0.82 mg/dL (0.55-1.02); EST Glomerular Filtration Rate 78 mL/min (>60); Est Glom Filt Rate - Afr Amer 94 mL/min (>60); Globulin 3.3 g/dL (2.2-4.2); Glucose 84 mg/dL (74-106); Potassium 3.5 mmol/L (3.5-5.1); Protein, Total 7.4 g/dL (6.4-8.2); Sodium Level 135 mmol/L (136-145)
== END ==
PROVIDERS: PCP Family Medicine; Referring Provider Internal Medicine Rheumatology; Visit Provider Internal Medicine Rheumatology
DX: M06.09 Rheumatoid arthritis without rheumatoid factor, multiple sites (principal); Q66.70 Congenital pes cavus, unspecified foot; Z79.899 Other long term (current) drug therapy
CPT/HCPCS: 36415; 80053; 85025

== ENCOUNTER → 2021-06-22 | Outpatient (CLI) | payer OTHER, SELFPAY ==
[2020-07-11 11:42] VITALS: BMI 33.3
[2021-06-22 10:36] LABS: Absolute Lymphocyte Count 2.83 X10^3/uL (0.83-4.51); Absolute Neutrophil Count 2.2 X10^3/uL (2.0-7.7); Basophil# 0.05 X10^3/uL; Basophil% 0.8 % (0-1); Eosinophil# 0.55 X10^3/uL; Eosinophils% 8.9 % (0-5); Hematocrit 38.8 % (37-47); Hemoglobin 12.8 g/dL (12.0-15.0); Lymphocyte # 2.83 X10^3/ul (0.83-4.51); Mean Corpuscular Hgb 31.8 pg (27.0-32.0); Mean Corpuscular Volume 96.3 fL (81-99); Mean Platelet Vol. 11.1 fl (6.2-12.0); Monocyte# 0.47 X10^3/uL; Monocyte% 7.6 % (0-10); NRBC Flagged by Analyzer 0 % (0-5); Neutrophil # 2.24 X10^3/uL (2.7-7.7); Neutrophil % 36.5 % (47-70); Platelet Count 225 K/mm3 (150-450); RBC Distribution Width CV 14.6 % (11.6-14.6); RBC Distribution Width SD 50.8 fl (35.1-43.9); Red Blood Count 4.03 M/mm3 (4.2-5.4); White Blood Count 6.2 K/mm3 (4.4-11.0)
[2021-06-22 10:54] LABS: ALB/GLOB Ratio 1.2 RATIO (0.9-2.4); AST(SGOT) 25 U/L (15-37); Alanine Aminotransfer ALT/SGPT 33 U/L (13-56); Albumin, Serum 3.9 g/dL (3.2-5.0); Alkaline Phosphatase 72 U/L (45-117); Anion Gap 5 (5-15); BUN 10 mg/dL (7-18); BUN/Creat Ratio 14.9 RATIO (10-20); Calcium,Total 8.7 mg/dL (8.5-10.1); Chloride 105 mmol/L (98-107); Creatinine, Serum 0.67 mg/dL (0.55-1.02); EST Glomerular Filtration Rate 97 mL/min (>60); Est Glom Filt Rate - Afr Amer 118 mL/min (>60); Globulin 3.2 g/dL (2.2-4.2); Glucose 92 mg/dL (74-106); Protein, Total 7.1 g/dL (6.4-8.2); Sodium Level 138 mmol/L (136-145)
== END | disposition home or self-care (01) ==
LOC: LABSPEC 10:10
PROVIDERS: PCP Family Medicine; Referring Provider Internal Medicine Rheumatology; Visit Provider Internal Medicine Rheumatology
DX: M06.09 Rheumatoid arthritis without rheumatoid factor, multiple sites (principal); M47.897 Other spondylosis, lumbosacral region; Q66.70 Congenital pes cavus, unspecified foot; Z79.899 Other long term (current) drug therapy
CPT/HCPCS: 80053; 85025

== ENCOUNTER → 2021-09-14 | Outpatient (CLI) | payer OTHER, SELFPAY ==
[2021-09-14 12:48] LABS: Absolute Lymphocyte Count 2.73 X10^3/uL (0.83-4.51); Absolute Neutrophil Count 2.1 X10^3/uL (2.0-7.7); Basophil# 0.04 X10^3/uL; Basophil% 0.7 % (0-1); Eosinophil# 0.24 X10^3/uL; Eosinophils% 4.3 % (0-5); Hematocrit 39.3 % (37-47); Lymphocyte # 2.73 X10^3/ul (0.83-4.51); Lymphocyte % 49.3 % (19-41); Mean Corp Hgb Conc 33.1 g/dL (32-36); Mean Corpuscular Hgb 31.6 pg (27.0-32.0); Mean Corpuscular Volume 95.4 fL (81-99); Mean Platelet Vol. 11.2 fl (6.2-12.0); Monocyte# 0.39 X10^3/uL; NRBC Flagged by Analyzer 0 % (0-5); Neutrophil # 2.13 X10^3/uL (2.7-7.7); Neutrophil % 38.5 % (47-70); Platelet Count 249 K/mm3 (150-450); RBC Distribution Width CV 13.9 % (11.6-14.6); RBC Distribution Width SD 47.9 fl (35.1-43.9); Red Blood Count 4.12 M/mm3 (4.2-5.4); White Blood Count 5.5 K/mm3 (4.4-11.0)
[2021-09-14 13:03] LABS: ALB/GLOB Ratio 1.2 RATIO (0.9-2.4); AST(SGOT) 18 U/L (15-37); Alanine Aminotransfer ALT/SGPT 35 U/L (13-56); Albumin, Serum 4.1 g/dL (3.2-5.0); Alkaline Phosphatase 65 U/L (45-117); Anion Gap 9 (5-15); BUN 16 mg/dL (7-18); BUN/Creat Ratio 20.6 RATIO (10-20); Calcium,Total 9.1 mg/dL (8.5-10.1); Chloride 101 mmol/L (98-107); Creatinine, Serum 0.78 mg/dL (0.55-1.02); EST Glomerular Filtration Rate 82 mL/min (>60); Est Glom Filt Rate - Afr Amer 100 mL/min (>60); Globulin 3.4 g/dL (2.2-4.2); Glucose 78 mg/dL (74-106); Potassium 3.8 mmol/L (3.5-5.1); Protein, Total 7.5 g/dL (6.4-8.2); Sodium Level 139 mmol/L (136-145)
== END | disposition home or self-care (01) ==
LOC: LABSPEC 11:51
PROVIDERS: PCP Family Medicine; Visit Provider Internal Medicine Rheumatology
DX: M06.072 Rheumatoid arthritis without rheumatoid factor, left ankle and foot (principal); Q66.70 Congenital pes cavus, unspecified foot; Z79.899 Other long term (current) drug therapy
CPT/HCPCS: 80053; 85025

== ENCOUNTER 2021-12-12 14:16 | Outpatient (CLI) | payer BC, SELFPAY ==
[2021-12-12 14:51] LABS: Absolute Lymphocyte Count 3.74 X10^3/uL (0.83-4.51); Absolute Neutrophil Count 3.6 X10^3/uL (2.0-7.7); Basophil# 0.03 X10^3/uL; Basophil% 0.4 % (0-1); Eosinophil# 0.07 X10^3/uL; Eosinophils% 0.9 % (0-5); Hematocrit 37.1 % (37-47); Lymphocyte # 3.74 X10^3/ul (0.83-4.51); Lymphocyte % 47.6 % (19-41); Mean Corp Hgb Conc 32.3 g/dL (32-36); Mean Corpuscular Hgb 30.8 pg (27.0-32.0); Mean Corpuscular Volume 95.1 fL (81-99); Mean Platelet Vol. 11.2 fl (6.2-12.0); Monocyte# 0.44 X10^3/uL; Monocyte% 5.6 % (0-10); NRBC Flagged by Analyzer 0 % (0-5); Neutrophil # 3.56 X10^3/uL (2.7-7.7); Neutrophil % 45.4 % (47-70); Platelet Count 223 K/mm3 (150-450); RBC Distribution Width CV 13.4 % (11.6-14.6); RBC Distribution Width SD 46.9 fl (35.1-43.9); White Blood Count 7.9 K/mm3 (4.4-11.0)
[2021-12-12 14:57] LABS: ALB/GLOB Ratio 1.2 RATIO (0.9-2.4); AST(SGOT) 22 U/L (15-37); Alanine Aminotransfer ALT/SGPT 39 U/L (13-56); Alkaline Phosphatase 70 U/L (45-117); Anion Gap 6 (5-15); BUN 11 mg/dL (7-18); Chloride 104 mmol/L (98-107); Creatinine, Serum 0.92 mg/dL (0.55-1.02); EST Glomerular Filtration Rate 68 mL/min (>60); Est Glom Filt Rate - Afr Amer 82 mL/min (>60); Globulin 3.3 g/dL (2.2-4.2); Glucose 118 mg/dL (74-106); Potassium 3.4 mmol/L (3.5-5.1); Protein, Total 7.3 g/dL (6.4-8.2); Sodium Level 138 mmol/L (136-145)
== END 2021-12-12 23:59 | disposition short-term general hospital (02) ==
LOC: LABSPEC 14:22
PROVIDERS: PCP Family Medicine; Referring Provider Internal Medicine Rheumatology; Visit Provider Internal Medicine Rheumatology
DX: M06.072 Rheumatoid arthritis without rheumatoid factor, left ankle and foot (principal); Q66.70 Congenital pes cavus, unspecified foot; Z79.899 Other long term (current) drug therapy
CPT/HCPCS: 80053; 85025

== ENCOUNTER → 2022-03-05 | Outpatient (CLI) | payer BC, SELFPAY ==
[2022-03-05 18:09] LABS: Absolute Lymphocyte Count 3.36 X10^3/uL (0.83-4.51); Absolute Neutrophil Count 3.9 X10^3/uL (2.0-7.7); Basophil# 0.04 X10^3/uL; Basophil% 0.5 % (0-1); Eosinophil# 0.07 X10^3/uL; Eosinophils% 0.9 % (0-5); Hematocrit 37.2 % (37-47); Hemoglobin 12.6 g/dL (12.0-15.0); Lymphocyte # 3.36 X10^3/ul (0.83-4.51); Lymphocyte % 43.6 % (19-41); Mean Corp Hgb Conc 33.9 g/dL (32-36); Mean Corpuscular Hgb 30.9 pg (27.0-32.0); Mean Corpuscular Volume 91.2 fL (81-99); Mean Platelet Vol. 10.7 fl (6.2-12.0); Monocyte# 0.32 X10^3/uL; Monocyte% 4.2 % (0-10); NRBC Flagged by Analyzer 0 % (0-5); Neutrophil # 3.91 X10^3/uL (2.7-7.7); Neutrophil % 50.7 % (47-70); Platelet Count 247 K/mm3 (150-450); RBC Distribution Width CV 13.7 % (11.6-14.6); RBC Distribution Width SD 46.1 fl (35.1-43.9); Red Blood Count 4.08 M/mm3 (4.2-5.4); White Blood Count 7.7 K/mm3 (4.4-11.0)
[2022-03-05 18:29] LABS: ALB/GLOB Ratio 1.1 RATIO (0.9-2.4); AST(SGOT) 37 U/L (15-37); Alanine Aminotransfer ALT/SGPT 57 U/L (13-56); Alkaline Phosphatase 76 U/L (45-117); Anion Gap 8 (5-15); BUN 17 mg/dL (7-18); BUN/Creat Ratio 20.1 RATIO (10-20); Chloride 103 mmol/L (98-107); Creatinine, Serum 0.84 mg/dL (0.55-1.02); EST Glomerular Filtration Rate 75 mL/min (>60); Est Glom Filt Rate - Afr Amer 90 mL/min (>60); Globulin 3.6 g/dL (2.2-4.2); Glucose 100 mg/dL (74-106); Potassium 3.6 mmol/L (3.5-5.1); Protein, Total 7.6 g/dL (6.4-8.2); Sodium Level 136 mmol/L (136-145)
== END | disposition home or self-care (01) ==
LOC: MTLAB 15:52
PROVIDERS: PCP Family Medicine; Referring Provider Internal Medicine Rheumatology; Visit Provider Internal Medicine Rheumatology
DX: M06.09 Rheumatoid arthritis without rheumatoid factor, multiple sites (principal); M47.897 Other spondylosis, lumbosacral region; Q66.70 Congenital pes cavus, unspecified foot; Z79.899 Other long term (current) drug therapy
CPT/HCPCS: 36415; 80053; 85025

== ENCOUNTER → 2022-04-04 | Outpatient (CLI) | payer BC, SELFPAY ==
[2022-04-04 18:05] LABS: ALB/GLOB Ratio 1.3 RATIO (0.9-2.4); AST(SGOT) 17 U/L (15-37); Alanine Aminotransfer ALT/SGPT 38 U/L (13-56); Albumin, Serum 4.5 g/dL (3.2-5.0); Alkaline Phosphatase 74 U/L (45-117); Anion Gap 9 (5-15); BUN 19 mg/dL (7-18); BUN/Creat Ratio 21.9 RATIO (10-20); Calcium,Total 9.3 mg/dL (8.5-10.1); Chloride 102 mmol/L (98-107); Creatinine, Serum 0.87 mg/dL (0.55-1.02); EST Glomerular Filtration Rate 72 mL/min (>60); Est Glom Filt Rate - Afr Amer 87 mL/min (>60); Globulin 3.5 g/dL (2.2-4.2); Glucose 99 mg/dL (74-106); Potassium 3.5 mmol/L (3.5-5.1); Sodium Level 137 mmol/L (136-145)
== END | disposition home or self-care (01) ==
LOC: MTLAB 15:46
PROVIDERS: PCP Family Medicine; Referring Provider Internal Medicine Rheumatology; Visit Provider Internal Medicine Rheumatology
DX: M06.00 Rheumatoid arthritis without rheumatoid factor, unspecified site (principal); M47.897 Other spondylosis, lumbosacral region; Q66.70 Congenital pes cavus, unspecified foot; Z79.899 Other long term (current) drug therapy
CPT/HCPCS: 36415; 80053

== ENCOUNTER → 2022-05-28 | Outpatient (CLI) | payer BC, SELFPAY ==
[2022-05-28 17:33] LABS: Absolute Lymphocyte Count 3.21 X10^3/uL (0.83-4.51); Absolute Neutrophil Count 3.6 X10^3/uL (2.0-7.7); Basophil# 0.04 X10^3/uL; Basophil% 0.5 % (0-1); Eosinophil# 0.05 X10^3/uL; Eosinophils% 0.7 % (0-5); Hematocrit 38.7 % (37-47); Lymphocyte # 3.21 X10^3/ul (0.83-4.51); Lymphocyte % 43.7 % (19-41); Mean Corp Hgb Conc 33.6 g/dL (32-36); Mean Corpuscular Hgb 31.6 pg (27.0-32.0); Mean Corpuscular Volume 93.9 fL (81-99); Mean Platelet Vol. 10.8 fl (6.2-12.0); Monocyte# 0.45 X10^3/uL; Monocyte% 6.1 % (0-10); NRBC Flagged by Analyzer 0 % (0-5); Neutrophil # 3.57 X10^3/uL (2.7-7.7); Neutrophil % 48.7 % (47-70); Platelet Count 236 K/mm3 (150-450); RBC Distribution Width CV 14.4 % (11.6-14.6); RBC Distribution Width SD 49.8 fl (35.1-43.9); Red Blood Count 4.12 M/mm3 (4.2-5.4); White Blood Count 7.3 K/mm3 (4.4-11.0)
[2022-05-28 18:07] LABS: ALB/GLOB Ratio 1.2 RATIO (0.9-2.4); AST(SGOT) 25 U/L (15-37); Alanine Aminotransfer ALT/SGPT 38 U/L (13-56); Alkaline Phosphatase 79 U/L (45-117); Anion Gap 9 (5-15); BUN 12 mg/dL (7-18); BUN/Creat Ratio 14.6 RATIO (10-20); Calcium,Total 9.3 mg/dL (8.5-10.1); Chloride 104 mmol/L (98-107); Creatinine, Serum 0.82 mg/dL (0.55-1.02); EST Glomerular Filtration Rate 77 mL/min (>60); Est Glom Filt Rate - Afr Amer 93 mL/min (>60); Globulin 3.4 g/dL (2.2-4.2); Glucose 87 mg/dL (74-106); Potassium 3.5 mmol/L (3.5-5.1); Protein, Total 7.4 g/dL (6.4-8.2); Sodium Level 139 mmol/L (136-145)
== END | disposition home or self-care (01) ==
PROVIDERS: PCP Family Medicine; Referring Provider Internal Medicine Rheumatology; Visit Provider Internal Medicine Rheumatology
DX: M06.00 Rheumatoid arthritis without rheumatoid factor, unspecified site (principal); M47.897 Other spondylosis, lumbosacral region; Q66.70 Congenital pes cavus, unspecified foot; Z79.899 Other long term (current) drug therapy
CPT/HCPCS: 36415; 80053; 85025

== ENCOUNTER → 2022-08-27 | Outpatient (CLI) | payer BC, SELFPAY ==
[2022-08-27 18:01] LABS: Absolute Lymphocyte Count 3.57 X10^3/uL (0.83-4.51); Basophil# 0.02 X10^3/uL; Basophil% 0.3 % (0-1); Eosinophil# 0.04 X10^3/uL; Eosinophils% 0.6 % (0-5); Hemoglobin 12.9 g/dL (12.0-15.0); Lymphocyte # 3.57 X10^3/ul (0.83-4.51); Lymphocyte % 51.3 % (19-41); Mean Corp Hgb Conc 33.1 g/dL (32-36); Mean Corpuscular Hgb 31.3 pg (27.0-32.0); Mean Corpuscular Volume 94.7 fL (81-99); Mean Platelet Vol. 11.2 fl (6.2-12.0); Monocyte# 0.34 X10^3/uL; Monocyte% 4.9 % (0-10); NRBC Flagged by Analyzer 0 % (0-5); Neutrophil # 2.98 X10^3/uL (2.7-7.7); Neutrophil % 42.8 % (47-70); Platelet Count 242 K/mm3 (150-450); RBC Distribution Width CV 13.7 % (11.6-14.6); RBC Distribution Width SD 47.4 fl (35.1-43.9); Red Blood Count 4.12 M/mm3 (4.2-5.4)
[2022-08-27 18:30] LABS: ALB/GLOB Ratio 1.2 RATIO (0.9-2.4); AST(SGOT) 33 U/L (15-37); Alanine Aminotransfer ALT/SGPT 55 U/L (13-56); Alkaline Phosphatase 79 U/L (45-117); Anion Gap 9 (5-15); BUN 13 mg/dL (7-18); BUN/Creat Ratio 15.3 RATIO (10-20); Calcium,Total 9.3 mg/dL (8.5-10.1); Chloride 102 mmol/L (98-107); Creatinine, Serum 0.85 mg/dL (0.55-1.02); EST Glomerular Filtration Rate 74 mL/min (>60); Est Glom Filt Rate - Afr Amer 89 mL/min (>60); Globulin 3.4 g/dL (2.2-4.2); Glucose 84 mg/dL (74-106); Potassium 3.6 mmol/L (3.5-5.1); Protein, Total 7.4 g/dL (6.4-8.2); Sodium Level 138 mmol/L (136-145)
== END | disposition home or self-care (01) ==
LOC: MTLAB 15:48
PROVIDERS: PCP Family Medicine; Referring Provider Internal Medicine Rheumatology; Visit Provider Internal Medicine Rheumatology
DX: M06.00 Rheumatoid arthritis without rheumatoid factor, unspecified site (principal); M47.897 Other spondylosis, lumbosacral region; Q66.70 Congenital pes cavus, unspecified foot; Z79.899 Other long term (current) drug therapy
CPT/HCPCS: 36415; 80053; 85025

== ENCOUNTER → 2022-11-26 | Outpatient (CLI) | payer BC, SELFPAY ==
[2022-11-26 17:48] LABS: Absolute Lymphocyte Count 3.27 X10^3/uL (0.83-4.51); Absolute Neutrophil Count 4.3 X10^3/uL (2.0-7.7); Basophil# 0.02 X10^3/uL; Basophil% 0.3 % (0-1); Eosinophil# 0.01 X10^3/uL; Eosinophils% 0.1 % (0-5); Hematocrit 39.8 % (37-47); Hemoglobin 12.7 g/dL (12.0-15.0); Lymphocyte # 3.27 X10^3/ul (0.83-4.51); Lymphocyte % 41.8 % (19-41); Mean Corp Hgb Conc 31.9 g/dL (32-36); Mean Corpuscular Hgb 30.5 pg (27.0-32.0); Mean Corpuscular Volume 95.7 fL (81-99); Mean Platelet Vol. 10.7 fl (6.2-12.0); Monocyte# 0.26 X10^3/uL; Monocyte% 3.3 % (0-10); NRBC Flagged by Analyzer 0 % (0-5); Neutrophil # 4.25 X10^3/uL (2.7-7.7); Neutrophil % 54.2 % (47-70); Platelet Count 272 K/mm3 (150-450); RBC Distribution Width CV 13.9 % (11.6-14.6); RBC Distribution Width SD 49.1 fl (35.1-43.9); Red Blood Count 4.16 M/mm3 (4.2-5.4); White Blood Count 7.8 K/mm3 (4.4-11.0)
[2022-11-26 19:52] LABS: ALB/GLOB Ratio 1.5 RATIO (0.9-2.4); AST(SGOT) 42 U/L (15-37); Alanine Aminotransfer ALT/SGPT 80 U/L (13-56); Albumin, Serum 4.5 g/dL (3.2-5.0); Alkaline Phosphatase 82 U/L (45-117); Anion Gap 11 (5-15); BUN 15 mg/dL (7-18); BUN/Creat Ratio 18.7 RATIO (10-20); Calcium,Total 9.7 mg/dL (8.5-10.1); Chloride 105 mmol/L (98-107); EST Glomerular Filtration Rate 79 mL/min (>60); Est Glom Filt Rate - Afr Amer 95 mL/min (>60); Glucose 92 mg/dL (74-106); Potassium 3.7 mmol/L (3.5-5.1); Protein, Total 7.5 g/dL (6.4-8.2); Sodium Level 141 mmol/L (136-145)
== END | disposition home or self-care (01) ==
LOC: MTLAB 15:45
PROVIDERS: PCP Family Medicine; Referring Provider Internal Medicine Rheumatology; Visit Provider Internal Medicine Rheumatology
DX: M06.00 Rheumatoid arthritis without rheumatoid factor, unspecified site (principal); M47.897 Other spondylosis, lumbosacral region; Q66.70 Congenital pes cavus, unspecified foot; Z79.899 Other long term (current) drug therapy
CPT/HCPCS: 36415; 80053; 85025

== ENCOUNTER → 2022-12-10 | Outpatient (CLI) | payer BC, SELFPAY ==
--- NOTE | 2022-12-10 08:55 | US_ITS ---
STUDY: ABDOMINAL ULTRASOUND - RIGHT UPPER QUADRANT REASON FOR VISIT: Female, 56 years old ELEVATED LIVER ENZYMES TECHNIQUE: Ultrasound evaluation of the right upper quadrant was performed with real-time and static du-scale imaging. TECHNICAL QUALITY: Adequate. COMPARISON: None. FINDINGS: Liver: The liver measures 16.2 cm. There is increased echogenicity consistent with fatty infiltration. The bile ducts are within normal limits. There is hepatic color flow. The direction of portal flow is hepatopetal. There is no demonstrated mass lesion. Gallbladder: The patient is status post cholecystectomy. Common Bile Duct (C.B.D.): The common bile duct measures 4.2 mm. Pancreas: Normal size of the head, body and tail of the pancreas. There is normal echogenicity of the pancreas. There is no demonstrated pancreatic mass or cyst. Right Kidney: Normal size of the right kidney. The right kidney measures 10.2 cm x 5 cm x 3.3 cm. Normal renal cortex. The right cortex measures 1.0 cm. There is no demonstrated renal mass or cyst. There is no right hydronephrosis. US/Liver IMPRESSION: Fatty infiltration of the liver. Electronically Signed: Celio Bertrand MD at 15:22 EST ,
== END | disposition home or self-care (01) ==
LOC: US 08:53
PROVIDERS: PCP Family Medicine; Referring Provider Internal Medicine Rheumatology; Visit Provider Internal Medicine Rheumatology
DX: M06.00 Rheumatoid arthritis without rheumatoid factor, unspecified site (principal); Z79.899 Other long term (current) drug therapy
CPT/HCPCS: 76705

== ENCOUNTER → 2022-12-26 | Outpatient (CLI) | payer BC, SELFPAY ==
[2022-12-26 19:04] LABS: ALB/GLOB Ratio 1.1 RATIO (0.9-2.4); AST(SGOT) 24 U/L (15-37); Alanine Aminotransfer ALT/SGPT 39 U/L (13-56); Alkaline Phosphatase 93 U/L (45-117); Anion Gap 11 (5-15); BUN 15 mg/dL (7-18); BUN/Creat Ratio 14.9 RATIO (10-20); Calcium,Total 9.3 mg/dL (8.5-10.1); Chloride 103 mmol/L (98-107); Creatinine, Serum 1.01 mg/dL (0.55-1.02); EST Glomerular Filtration Rate 61 mL/min (>60); Est Glom Filt Rate - Afr Amer 73 mL/min (>60); Globulin 3.7 g/dL (2.2-4.2); Glucose 89 mg/dL (74-106); Potassium 3.5 mmol/L (3.5-5.1); Protein, Total 7.7 g/dL (6.4-8.2); Sodium Level 138 mmol/L (136-145)
== END | disposition home or self-care (01) ==
LOC: MTLAB 15:48
PROVIDERS: PCP Family Medicine; Referring Provider Internal Medicine Rheumatology; Visit Provider Internal Medicine Rheumatology
DX: M06.00 Rheumatoid arthritis without rheumatoid factor, unspecified site (principal); M47.897 Other spondylosis, lumbosacral region; Q66.70 Congenital pes cavus, unspecified foot; Z79.899 Other long term (current) drug therapy
CPT/HCPCS: 36415; 80053

== ENCOUNTER → 2023-02-18 | Outpatient (CLI) | payer BC, SELFPAY ==
[2023-02-18 17:37] LABS: Absolute Lymphocyte Count 4.67 X10^3/uL (0.83-4.51); Absolute Neutrophil Count 3.3 X10^3/uL (2.0-7.7); Basophil# 0.03 X10^3/uL; Basophil% 0.4 % (0-1); Eosinophil# 0.03 X10^3/uL; Eosinophils% 0.4 % (0-5); Hematocrit 39.9 % (37-47); Hemoglobin 12.9 g/dL (12.0-15.0); Lymphocyte # 4.67 X10^3/ul (0.83-4.51); Lymphocyte % 55.3 % (19-41); Mean Corp Hgb Conc 32.3 g/dL (32-36); Mean Corpuscular Hgb 30.6 pg (27.0-32.0); Mean Corpuscular Volume 94.5 fL (81-99); Mean Platelet Vol. 10.5 fl (6.2-12.0); Monocyte# 0.37 X10^3/uL; Monocyte% 4.4 % (0-10); NRBC Flagged by Analyzer 0 % (0-5); Neutrophil # 3.34 X10^3/uL (2.7-7.7); Neutrophil % 39.4 % (47-70); Platelet Count 229 K/mm3 (150-450); RBC Distribution Width CV 13.7 % (11.6-14.6); RBC Distribution Width SD 46.8 fl (35.1-43.9); Red Blood Count 4.22 M/mm3 (4.2-5.4); White Blood Count 8.5 K/mm3 (4.4-11.0)
[2023-02-18 17:58] LABS: ALB/GLOB Ratio 1.2 RATIO (0.9-2.4); AST(SGOT) 23 U/L (15-37); Alanine Aminotransfer ALT/SGPT 37 U/L (13-56); Alkaline Phosphatase 79 U/L (45-117); Anion Gap 6 (5-15); BUN 14 mg/dL (7-18); BUN/Creat Ratio 17.2 RATIO (10-20); Calcium,Total 9.2 mg/dL (8.5-10.1); Chloride 105 mmol/L (98-107); Creatinine, Serum 0.81 mg/dL (0.55-1.02); EST Glomerular Filtration Rate 78 mL/min (>60); Est Glom Filt Rate - Afr Amer 94 mL/min (>60); Globulin 3.2 g/dL (2.2-4.2); Glucose 84 mg/dL (74-106); Potassium 3.3 mmol/L (3.5-5.1); Protein, Total 7.2 g/dL (6.4-8.2); Sodium Level 138 mmol/L (136-145)
== END | disposition home or self-care (01) ==
PROVIDERS: PCP Family Medicine; Referring Provider Internal Medicine Rheumatology; Visit Provider Internal Medicine Rheumatology
DX: M06.00 Rheumatoid arthritis without rheumatoid factor, unspecified site (principal); M47.897 Other spondylosis, lumbosacral region; Q66.70 Congenital pes cavus, unspecified foot; Z79.899 Other long term (current) drug therapy
CPT/HCPCS: 36415; 80053; 85025

== ENCOUNTER → 2023-05-09 | Outpatient (CLI) | payer BC, SELFPAY ==
[2023-05-09 17:36] LABS: Absolute Lymphocyte Count 3.84 X10^3/uL (0.83-4.51); Absolute Neutrophil Count 3.4 X10^3/uL (2.0-7.7); Basophil# 0.05 X10^3/uL; Basophil% 0.6 % (0-1); Eosinophils% 2.5 % (0-5); Hematocrit 38.9 % (37-47); Lymphocyte # 3.84 X10^3/ul (0.83-4.51); Lymphocyte % 48.5 % (19-41); Mean Corp Hgb Conc 33.4 g/dL (32-36); Mean Corpuscular Hgb 31.2 pg (27.0-32.0); Mean Corpuscular Volume 93.3 fL (81-99); Mean Platelet Vol. 10.4 fl (6.2-12.0); Monocyte# 0.44 X10^3/uL; Monocyte% 5.6 % (0-10); NRBC Flagged by Analyzer 0 % (0-5); Neutrophil # 3.36 X10^3/uL (2.7-7.7); Neutrophil % 42.5 % (47-70); Platelet Count 256 K/mm3 (150-450); RBC Distribution Width CV 14.1 % (11.6-14.6); RBC Distribution Width SD 48.2 fl (35.1-43.9); Red Blood Count 4.17 M/mm3 (4.2-5.4); White Blood Count 7.9 K/mm3 (4.4-11.0)
[2023-05-09 17:52] LABS: ALB/GLOB Ratio 1.1 RATIO (0.9-2.4); AST(SGOT) 33 U/L (15-37); Alanine Aminotransfer ALT/SGPT 57 U/L (13-56); Albumin, Serum 3.9 g/dL (3.2-5.0); Alkaline Phosphatase 80 U/L (45-117); Anion Gap 6 (5-15); BUN 12 mg/dL (7-18); BUN/Creat Ratio 14.9 RATIO (10-20); Chloride 106 mmol/L (98-107); Creatinine, Serum 0.81 mg/dL (0.55-1.02); EST Glomerular Filtration Rate 78 mL/min (>60); Est Glom Filt Rate - Afr Amer 95 mL/min (>60); Globulin 3.4 g/dL (2.2-4.2); Glucose 87 mg/dL (74-106); Potassium 3.7 mmol/L (3.5-5.1); Protein, Total 7.3 g/dL (6.4-8.2); Sodium Level 138 mmol/L (136-145)
== END | disposition home or self-care (01) ==
LOC: MTLAB 15:49
PROVIDERS: PCP Family Medicine; Referring Provider Internal Medicine Rheumatology; Visit Provider Internal Medicine Rheumatology
DX: M06.00 Rheumatoid arthritis without rheumatoid factor, unspecified site (principal); M47.897 Other spondylosis, lumbosacral region; Q66.70 Congenital pes cavus, unspecified foot; Z79.899 Other long term (current) drug therapy
CPT/HCPCS: 36415; 80053; 85025

== ENCOUNTER 2023-05-15 12:40 | Emergency (ER) | payer BC, SELFPAY ==
[2023-05-15 12:41] VITALS: BP 125/69; PULSE 80; RESP 18; TEMP 35.4; O2SAT 98
--- NOTE | 2023-05-15 13:00 | RAD_ITS ---
STUDY: X-RAY - RIGHT WRIST REASON FOR EXAM: Female, 57 years old. Pain following a fall. TECHNIQUE: 3 view(s) of the wrist were obtained. COMPARISON: None. FINDINGS: Nondisplaced comminuted fracture of the distal radial metaphysis. There is good alignment. Neutral facing. Avulsion of the ulnar styloid. Normal radiocarpal articulation. Normal distal radioulnar articulation. Normal carpal bones. Normal carpal articulations. Normal carpometacarpal articulation of the thumb. Normal second through fifth carpometacarpal articulations. Normal visualized metacarpal bones. Soft tissue swelling. RAD/Wrist min 3 Views IMPRESSION: Comminuted nondisplaced fracture of the distal radial metaphysis as well as an avulsion fracture of the ulnar styloid. Soft tissue swelling. Electronically Signed: Celio Bertrand MD at 13:16 EDT ,
[2023-05-15] MEDS: HYDROcodone Bitartrate/Apap 5/325 Tablet PO (13:41)
[2023-05-15] MEDS: Ondansetron ODT 4 MG Tablet PO (13:41)
--- NOTE | 2023-05-15 14:07 | RAD_ITS ---
STUDY: X-RAY - UNILATERAL RIBS ( RIGHT ) WITH CHEST REASON FOR EXAM: Female, 57 years old. Right rib pain following a fall. TECHNIQUE - RIBS: 4 view(s) of the ribs. TECHNIQUE - CHEST: Single PA view of the chest. COMPARISON: Comparison is made with prior chest radiograph dated July 31, 2018. FINDINGS - RIBS: Normal visualized ribs without a demonstrated fracture. FINDINGS - CHEST: The lungs are clear and expanded. There is no demonstrated pleural abnormality. Normal size heart. Normal mediastinum and maggie. Normal visualized pulmonary arteries. Normal visualized aortic arch and descending thoracic aorta. Normal visualized thoracic spine. Normal visualized ribs, clavicles, and shoulders. There is no demonstrated abnormality of the visualized soft tissue structures of the upper abdomen. RAD/Ribs Uni Min 3V w/PA Chest IMPRESSION: RIBS: Normal x-ray examination of the ribs. CHEST: Normal x-ray examination of the chest. Electronically Signed: Celio Bertrand MD at 14:35 EDT ,
--- NOTE | 2023-05-15 14:35 | EDS_ITS ---
HPI History of Present Illness Chief Complaint: Fall Informant: patient Onset/Context/Timing Onset: Today Narrative Narrative: Patient presents after a fall at home. She was outside weed eating when she missed 1 step and fell onto the concrete of the driveway. She complains of pain to the right wrist, right ribs, bilateral knees. She did not strike her head or lose consciousness. She is right-hand dominant. She has not yet taken anything for pain. [facility] Medical History GERD (gastroesophageal reflux disease) Multiple thyroid nodules Rheumatoid arteritis Home Medications methotrexate sodium 2.5 mg tablet 8 tab PO Q7D 09/05/13 [History Last Taken Unknown] acetaminophen 500 mg tablet 500 mg PO PRN PRN Pain 03/12/17 [History Last Taken Unknown] esomeprazole magnesium 20 mg tablet,delayed release 20 mg PO DAILY 03/12/17 [History Last Taken Unknown] folic acid 1 mg tablet 2 mg PO DAILY@0800 03/12/17 [History Last Taken Unknown] leucovorin calcium 15 mg tablet 15 mg PO Q7D 03/12/17 [History Last Taken Unknown] multivitamin with folic acid 400 mcg tablet 1 tab PO DAILY 03/12/17 [History Last Taken Unknown] naproxen 500 mg tablet 500 mg PO DAILY PRN PRN Pain 03/12/17 [History Last Taken Unknown] lorazepam 2 mg tablet (Ativan) 2 mg PO ONCE #1 TAB 01/19/19 [Rx Last Taken Unknown] abatacept 125 mg/mL subcutaneous syringe (Orencia) 125 mg subcut QWEEK 07/11/20 [History Last Taken Unknown] hydroxychloroquine 200 mg tablet (Plaquenil) 200 mg PO DAILY 07/11/20 [History Last Taken Unknown] hydrocodone-acetaminophen 5-325mg 5mg-325mg 1 tab PO Q6H PRN PRN Pain 3 days #12 TABLETS 05/15/23 [Rx Last Taken Unknown] Allergy/AdvReac Type Severity Reaction Status Date / Time Penicillins Allergy Mild Shortness Verified 05/15/23 12:43 of breath, rash Family History Mother Diabetes Father Cancer unsure type Surgical History History of colonoscopy (~2012) History of tonsillectomy History of wisdom tooth extraction Status post biopsy of thyroid gland (~01/2019) Social History Smoking Status: Never smoker ROS ROS ED Constitutional Constitutional ED: Denies chills or fever(s) Eyes Eyes: Denies change in vision or discharge from eye(s) ENT ENT ED: Denies discharge from eye(s), rhinorrhea or sore throat Cardiovascular Cardiovascular: Reports chest pain; Denies palpitations Respiratory/Chest Respiratory/Chest: Denies cough or dyspnea Gastrointestinal Gastrointestinal: Denies abdominal pain, nausea or vomiting Genitourinary Genitourinary ED: Denies dysuria Musculoskeletal Musculoskeletal: Reports extremity pain; Denies back pain Integumentary Reports Abrasions; Denies rash Neurologic Neurologic: Denies headache(s) or weakness Psychiatric Psychiatric: Denies anxiety or depression Allergic/Immunologic Allergic/Immunologic ED: Denies lip swelling or urticaria EXAM Physical Exam Const Vital Signs: 05/15/23 12:41 Temperature 95.8 F L Temperature Source Temporal Pulse Rate 80 Respiratory Rate 18 Blood Pressure 125/69 H Blood Pressure Mean 87 Pulse Ox 98 Oxygen Delivery Method Room Air Positive well nourished and well developed General Appearance ED: well developed HEENT Reports normocephalic and head/scalp atraumatic Eyes PERRL and EOMs intact bilaterally Neck supple Chest Wall inspection of chest normal Chest Narrative: Right lateral rib tenderness. No crepitus. Resp normal respiratory effort and clear to auscultation bilaterally Cardio regular rate and regular rhythm GI normal to inspection, nondistended, normoactive bowel sounds Palpation: soft Extremity Extremity Narrative: Tenderness outpatient and edema noted around the right wrist. Able to wiggle fingers. No tenderness at the elbow or shoulder. Abrasions noted over the anterior knees bilaterally. No bony tenderness with good range of motion. Neuro oriented x3 and no sensory deficits noted Sensorium / Orientation: alert Motor Exam: Negative for strength 5/5 throughout Psych mental status grossly normal Skin Skin Narrative: As above. MDM MDM MDM Narrative Medical decision making narrative: Right wrist x-rays obtained per nursing protocol. Per my interpretation there is a nondisplaced distal radius fracture. Radiology interpretation is reviewed and agrees. At the time of my exam patient is given [place] and Zofran for pain and nausea. AP Ortho-Glass splint is applied. Following splint application she has good cap refill and can wiggle fingers. Patient is then sent for x-rays of her ribs. Right rib series with chest x-ray per my interpretation shows no obvious evidence of rib fracture. No pneumothorax. Test results are discussed with the patient. She will be referred to Dr. Arvizu, on-call for orthopedics for follow-up. Analgesics will be sent to the pharmacy for her. Return instructions given. Radiography Diagnostic Testing: Clinical Impression(s) from Imaging Studies Wrist X-Ray 05/15/23 13:00 IMPRESSION: Comminuted nondisplaced fracture of the distal radial metaphysis as well as an avulsion fracture of the ulnar styloid. Soft tissue swelling. Electronically Signed: Celio Bertrand MD at 13:16 EDT , Discharge Plan Triage Chief Complaint: Fall ED Provider: Sera Gregory Dx/Rx/DC Orders Clinical Impression: Fracture of right wrist, Contusion of rib, Abrasion, Fall Instructions: ED Chest Wall Contusion, ED Mechanical Fall, ED Fracture, Wrist, General Prescriptions: New hydrocodone-acetaminophen 5-325 mg tablet 1 tab PO Q6H PRN PRN (Reason: Pain) 3 Days Qty: 12 0RF No Action lorazepam [Ativan] 2 mg tablet 2 mg PO ONCE Qty: 1 0RF Rx Instructions: Take one tablet one hour prior to procedure Orencia 125 mg/mL syringe 125 mg SC QWEEK Rx Instructions: inject into abdomen, thigh, or outer area of arm; rotate sites hydroxychloroquine [Plaquenil] 200 mg tablet 200 mg PO DAILY methotrexate sodium 2.5 MG tablet 8 tab PO Q7D acetaminophen 500 MG tablet 500 mg PO PRN PRN (Reason: Pain) leucovorin calcium 15 MG tablet 15 mg PO Q7D folic acid 1 MG tablet 2 mg PO DAILY@0800 naproxen 500 MG tablet 500 mg PO DAILY PRN PRN (Reason: Pain) esomeprazole magnesium 20 MG tablet,delayed release (/EC) 20 mg PO DAILY multivitamin with folic acid 1 TABLET tablet 1 tab PO DAILY Primary Care Provider: Herman Del Cid Referrals: Herman Del Cid MD [Primary Care Provider] - Jorge Arvizu MD [Med Staff - Active Staff] - 3-5 Days Disposition Disposition: Home, Self Care
[2023-05-15 14:50] VITALS: BP 113/69; PULSE 84; RESP 16; O2SAT 98
== END 2023-05-15 14:51 | disposition home or self-care (01) ==
PROVIDERS: Emergency Provider Emergency Medicine; PCP Family Medicine; Visit Provider Emergency Medicine
DX: S52.501A Unspecified fracture of the lower end of right radius, initial encounter for closed fracture (principal); S52.611A Displaced fracture of right ulna styloid process, initial encounter for closed fracture; S20.211A Contusion of right front wall of thorax, initial encounter; S80.211A Abrasion, right knee, initial encounter; S80.212A Abrasion, left knee, initial encounter; W10.9XXA Fall (on) (from) unspecified stairs and steps, initial encounter; Y93.H2 Activity, gardening and landscaping; R11.0 Nausea
CPT/HCPCS: 29125; 71101; 73110; 99283

== ENCOUNTER → 2023-07-12 | Outpatient (CLI) | payer BC, SELFPAY ==
[2023-07-12 17:49] LABS: Absolute Neutrophil Count 3.9 X10^3/uL (2.0-7.7); Basophil# 0.05 X10^3/uL; Basophil% 0.6 % (0-1); Eosinophil# 0.27 X10^3/uL; Eosinophils% 3.1 % (0-5); Hematocrit 40.7 % (37-47); Hemoglobin 13.1 g/dL (12.0-15.0); Lymphocyte % 44.5 % (19-41); Mean Corp Hgb Conc 32.2 g/dL (32-36); Mean Corpuscular Hgb 30.5 pg (27.0-32.0); Mean Corpuscular Volume 94.7 fL (81-99); Mean Platelet Vol. 10.7 fl (6.2-12.0); Monocyte% 6.8 % (0-10); NRBC Flagged by Analyzer 0 % (0-5); Neutrophil # 3.94 X10^3/uL (2.7-7.7); Neutrophil % 44.9 % (47-70); Platelet Count 269 K/mm3 (150-450); RBC Distribution Width CV 13.2 % (11.6-14.6); RBC Distribution Width SD 45.1 fl (35.1-43.9); White Blood Count 8.8 K/mm3 (4.4-11.0)
[2023-07-12 18:08] LABS: ALB/GLOB Ratio 1.1 RATIO (0.9-2.4); AST(SGOT) 26 U/L (15-37); Alanine Aminotransfer ALT/SGPT 49 U/L (13-56); Alkaline Phosphatase 79 U/L (45-117); Anion Gap 8 (5-15); BUN 14 mg/dL (7-18); BUN/Creat Ratio 15.7 RATIO (10-20); Calcium,Total 9.2 mg/dL (8.5-10.1); Chloride 105 mmol/L (98-107); Creatinine, Serum 0.89 mg/dL (0.55-1.02); EST Glomerular Filtration Rate 70 mL/min (>60); Est Glom Filt Rate - Afr Amer 85 mL/min (>60); Globulin 3.5 g/dL (2.2-4.2); Glucose 88 mg/dL (74-106); Potassium 3.6 mmol/L (3.5-5.1); Protein, Total 7.5 g/dL (6.4-8.2); Sodium Level 140 mmol/L (136-145)
== END | disposition home or self-care (01) ==
LOC: MTLAB 15:01
PROVIDERS: PCP Family Medicine; Referring Provider Internal Medicine Rheumatology; Visit Provider Internal Medicine Rheumatology
DX: M06.09 Rheumatoid arthritis without rheumatoid factor, multiple sites (principal); Z79.899 Other long term (current) drug therapy; M47.897 Other spondylosis, lumbosacral region; Q66.70 Congenital pes cavus, unspecified foot
CPT/HCPCS: 36415; 80053; 85025

== ENCOUNTER → 2023-09-03 | Outpatient (CLI) | payer BC, SELFPAY ==
[2023-09-03 16:03] LABS: Absolute Lymphocyte Count 3.93 X10^3/uL (0.83-4.51); Basophil# 0.02 X10^3/uL; Basophil% 0.3 % (0-1); Eosinophil# 0.06 X10^3/uL; Eosinophils% 0.8 % (0-5); Hematocrit 41.4 % (37-47); Hemoglobin 13.2 g/dL (12.0-15.0); Lymphocyte # 3.93 X10^3/ul (0.83-4.51); Mean Corp Hgb Conc 31.9 g/dL (32-36); Mean Corpuscular Hgb 30.3 pg (27.0-32.0); Mean Corpuscular Volume 95.2 fL (81-99); Mean Platelet Vol. 10.8 fl (6.2-12.0); Monocyte# 0.52 X10^3/uL; Monocyte% 6.9 % (0-10); NRBC Flagged by Analyzer 0 % (0-5); Neutrophil # 3.02 X10^3/uL (2.7-7.7); Neutrophil % 39.9 % (47-70); Platelet Count 234 K/mm3 (150-450); RBC Distribution Width CV 13.3 % (11.6-14.6); RBC Distribution Width SD 46.3 fl (35.1-43.9); Red Blood Count 4.35 M/mm3 (4.2-5.4); White Blood Count 7.6 K/mm3 (4.4-11.0)
[2023-09-03 16:30] LABS: ALB/GLOB Ratio 1.1 RATIO (0.9-2.4); AST(SGOT) 21 U/L (15-37); Alanine Aminotransfer ALT/SGPT 44 U/L (13-56); Albumin, Serum 3.9 g/dL (3.2-5.0); Alkaline Phosphatase 82 U/L (45-117); Anion Gap 4 (5-15); BUN 13 mg/dL (7-18); BUN/Creat Ratio 16.8 RATIO (10-20); Calcium,Total 9.2 mg/dL (8.5-10.1); Chloride 107 mmol/L (98-107); Creatinine, Serum 0.77 mg/dL (0.55-1.02); EST Glomerular Filtration Rate 82 mL/min (>60); Est Glom Filt Rate - Afr Amer 100 mL/min (>60); Globulin 3.7 g/dL (2.2-4.2); Glucose 89 mg/dL (74-106); Potassium 3.6 mmol/L (3.5-5.1); Protein, Total 7.6 g/dL (6.4-8.2); Sodium Level 137 mmol/L (136-145)
== END | disposition home or self-care (01) ==
LOC: MTLAB 14:01
PROVIDERS: PCP Family Medicine; Referring Provider Internal Medicine Rheumatology; Visit Provider Internal Medicine Rheumatology
DX: M06.09 Rheumatoid arthritis without rheumatoid factor, multiple sites (principal); M47.897 Other spondylosis, lumbosacral region; Q66.70 Congenital pes cavus, unspecified foot; Z79.899 Other long term (current) drug therapy
CPT/HCPCS: 36415; 80053; 85025

== ENCOUNTER 2023-09-12 13:00 | Outpatient (RCR) | payer BC, SELFPAY ==
--- NOTE | 2023-07-05 09:14 | HP.OTEVAL_ITS ---
Patient's Visit Information Visit Information Visit Information: NELSON HENSLEY is a 57 year old F, referred to Occupational Therapy by KITTY Peterson, with a diagnosis of right distal wrist fx closed reduction. Date of Evaluation: 07/04/23 Occupational Therapist: Micki Beauchamp, BIJAN/Kriss, CHT Subjective Subjective: The 57 year old fell on May 15 going down some steps week after was casted, removed cast on Jul 02. Pt is 7 days and 1 day. Pt was in a waterproof cast felt like she had an allergic reaction. Pt reports pins and needles in medial aspect of forearm and pain CMC, dorsal and ulnar styloid taking Tylenol for pain reducing. Pt reports having RA. Pt right-handed. 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 pt states she has concerns with returning to work due to her limited ROM and weakness along with pain. ADLs Dressing: Overhead shirt, Pants, Socks and Shoes Eating: Bring food to mouth Comments: Pt requires assistance with all ADL tasks at this time Pain R UE forearm: Pain Intensity Range: 8 ROM Shoulder: R 30/120 L 65/153 Elbow: R 10/146 L 2/143 Forearm: R sup 0 pain pron 90 L sup 80 pron 90 Wrist: right 8/36 left 45/72 ROM Comments: Pt demonstrates minimal R hand ROM and unable to make a fist Strength Accounting Lecturer: R unable L 40# Lateral Pinch: R unable L 13# Tripod Pinch: R unable L 11# Strength Comments: will test right at later date Edema Wrist: right 17.5 cm left 15cm Other: MP right 19cm left 17.5cm Sensation Sensation Comments: stinging and numb in volar aspect of R forearm hypersensitive to touch Quick DASH-Disab of Arm,Shoulder& Hand Quick DASH Score: 93.3325 Goals Goal:: pt will demonstrate solar electric practitioner strength of >30# to return to ADL/IADL tasks by discharge. Pt will demonstrate pinch strength of >8# to return to ADL/IADL tasks by discharge Goal:: Pt to improve R shoulder extension to 60* in order to improve functional movement during ADLs. Pt to improve R shoulder flexion to 150* in order to improve functional movement during ADLs. Pt to improve R elbow extension to 3* in order to improve functional movement during ADLs. Pt to improve R wrist flexion to 70* in order to improve functional movement during ADLs. Pt to improve R wrist extension to 30* in order to improve functional movement during ADLs. Pt will make a composite fist with right hand by discharge. Goal:: pt will report pain no greater than 1-2/10 with use of left UE with ADLs and IADLs. Goal:: Pt will be able to tolerate different textures on right arm by discharge. Goal:: Pt will report Mod IND in all ADL tasks by discharge. Goal:: Pt to demo overall increased indep in ADL/IADL tasks by decreased total DASH score by 40 points by discharge. Rehabilitation General Assessment: Pt seen for OT darya 7 weeks and 1 day with a diagnosis of R distal radius fracture with closed reduction. Pt demonstrates decreased ROM of entire RUE with patient with decreased strength in hand due to healing structures pt is NWB . Pt is very limited in her ability to perform ADL/IADL tasks. Pt will benefit from skilled OT 1-2x a week for 8 weeks to safely return to ADL/IADL tasks. Therapist ed pt in AROM, edema management, and OT POC. Pt verbalizes understanding and agreeable to OT POC. Therapy session was directly supervised and doc. approved by Micki THAKKAR/Kriss,PUMAT. Rehabilitation Potential: Good Anticipated Interventions Anticipated Interventions: A/AAROM/PROM, Strengthening, Edema Control, Triggerpoint Release, Desensitization, Sensory Retraining, Modalities, Joint Protection/Energy Conservation, Ergonomic Education, Fine Motor Coord/Troy, Education re assistive Equipment, Education re Diagnosis and Home Program Visit Plan Frequency: 1-2x /Week Duration: 6 Weeks TEXT: Thank you for the opportunity to evaluate your patient. For Medicare and Medicare HMO plans, please review the plan of care and approve it. It will need to be FAXED BACK to us at [phone] for Medicare purposes. Please let me know if there are questions or concerns regarding this plan of care. Physician Signature: __Date:
--- NOTE | 2023-07-25 10:49 | OTREVAL_ITS ---
Re-Evaluation Intro: KITTY Peterson, It has been my pleasure to treat NELSON HENSLEY over the last 7 visits for right distal wrist fx closed reduction. Please see the progress note below for an update on the occupational therapy plan of care! Subjective Subjective: pt arrives 10 weeks s/p from DOI pt states she has numbness more in forearm now getting right shoulder/deltoid pain. pt states she is only able to perform 10% of your ADls due to limited wrist/forearm and digit ROM along with pain in right UE. Objective Objective/Function: pt demo signs of right shoulder impingement. pt has been performing AROM of right shoulder since OT. she has difficulty with ROM past 110* Please eval in regards to wrist pt demo with right forearm supination at [place] with increase pain if she attempts to go further- right forearm pronation WNL wrist ROM has improved but min. at 15/30* Pt digits moving slowly and despite PROM/AROM she is still unable to form composite fist. Pt has AAROM ex PROM for all digits DIP/PIP and MCP pt initiated PROM of wrist flex/ext. pt continues to have numbness in right thumb. indicating some type of nerve involvement- Plan Plan Frequency: 1-2x /Week Duration: 6 Weeks Visits in this POC: (Ins- No Limit- Med Vivian) Plan: try fluido Goals Goals Patient Goals: Regain Strength, Decrease Pain, Return to Work, Decrease Swelling/Stiffness, Improve Fine Motor Skills, Use Hand/Wrist/Arm Normally Again, Decrease Tingling/Numbness, Increase ROM, Be More Independent in ADLS, Resume Former Household Responsibilities (Cooking,Cleaning,Yard, etc.) and Resume Hobbies Goal:: pt will demonstrate straight line edger strength of >30# to return to ADL/IADL tasks by discharge. Pt will demonstrate pinch strength of >8# to return to ADL/IADL tasks by discharge Goal:: Pt to improve R shoulder extension to 60* in order to improve functional movement during ADLs. Pt to improve R shoulder flexion to 150* in order to improve functional movement during ADLs. Pt to improve R elbow extension to 3* in order to improve functional movement during ADLs. Pt to improve R wrist flexion to 70* in order to improve functional movement during ADLs. Pt to improve R wrist extension to 30* in order to improve functional movement during ADLs. Pt will make a composite fist with right hand by discharge. Goal:: pt will report pain no greater than 1-2/10 with use of left UE with ADLs and IADLs. Goal:: Pt will be able to tolerate different textures on right arm by discharge. Goal:: Pt will report Mod IND in all ADL tasks by discharge. Goal:: Pt to demo overall increased indep in ADL/IADL tasks by decreased total DASH score by 40 points by discharge. Anticipated Interventions Anticipated Interventions Anticipated Interventions: A/AAROM/PROM, Strengthening, Edema Control, Triggerpoint Release, Desensitization, Sensory Retraining, Modalities, Joint Protection/Energy Conservation, Ergonomic Education, Fine Motor Coord/Troy, Education re assistive Equipment, Education re Diagnosis and Home Program Re-Evaluation Ending Re-evaluation ending: Please do not hesitate to contact me at [phone] by phone or if you have questions or concerns regarding this new plan of care! Sincerely, Micki Beauchamp, OTR/L, CHT
--- NOTE | 2023-08-16 08:28 | HP.PTEVAL_ITS ---
Patient's Visit Information Visit Information Visit Information: NELSON HENSLEY is a 57 year old F referred to Physical Therapy by KITTY Peterson with a diagnosis of Adhesive Capsulitis of Right Shoulder. Date of Evaluation: 08/15/23 Physical Therapist: Cynthia Jacobs DPT Visit Plan Frequency: 2-3x /Week Duration: 4 Weeks Plan: AAROM, AROM of the right shoulder- challenged with closing of right hand- can attempt passive but very guarded. Modalities of TENS HEP Given IE: Posture, Wall Walk Flexion, Table Walk Away, Pendulums, Scapular Retractions Subjective Subjective: Patient reports falling May 15 2023- broke right wrist- went to ER- they wrapped it and sent her to [facility]- they put a cast on in a week after the swelling went down. She saw Nacho Ortiz who told her she would have some discomfort with a cast- she can now not use her right arm. OT is working with her wrist/elbow and hand- and they sent her to PT for her shoulder- Dr. Peterson. Shoulder only: Pain at its worst: 10/10 Agg: movement- reaching overhead or side to side- Best: 3/10 Eases: hot tub of water, heat and rest. Pain is located in the shoulder joint and radiates to the deltoid- describes the pain as stinging- sharp. Unsure if she has N/T in the shoulder but does have it under the arm and down the arm. No radiating neck pain. No increase in blurred vision or dizziness. She had prior PEPE but no changes or increase since this started. 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 Sleep: She has trigeminal nerve damage diagnosed 10 years so she does not lay on left side so now she is laying only on her back- so sleep is disturbed. She has had no x-ray or MRI on the shoulder. When she went to see Dr. Peterson he looked at her active range of motion but he did not do any passive range of motion- and will take x-rays in October. She sees a rheumatology for RA and Osteoarthritis. She is having an EMG Aug 26. PMHx/Meds: no changes since in ED in May 2023 Objective Objective: *only evaluation of the Cervical spine and right shoulder- OT evaluation of the elbow/wrist/hand* Posture: Forward head, rounded shoulder, mild increase guarding of the right UE Gait: mild decrease arm swing right Observation: mild winging of the right scapula Palpation: mild tenderness of the AC joint ROM: Cervical Spine: WNL with reports of mild tightness in SB to the left, Right Shoulder: AROM: Flexion: 95 degrees (5/10) Abd: 75 degrees (8/10) with compensation, IR behind the back: greater troch (10/10), ER: 35 degrees (5/10). AAROM: Flexion: 120 degrees (5/10) Abd: 110 degrees (5/10) with mild compensati on PROM: severe guarding- unable to obtain accurate measurements Strength: Shoulder: 2/5 throughout Scap: fair minus Balance/Special Test Scores Quick DASH Score: [id number] Goals Goal 1:: Patient will report participation in home exercise program activities a minimum of 5 days per week, as adjunct to skilled physical therapy intervention in preparation for independent home management upon discharge. Goal Time Frame: 4-6 Weeks Goal 2:: Patient will demonstrate full AROM of the right shoulder to ease ADL's. Goal Time Frame: 4-6 Weeks Goal 3:: Patient will maintain proper posture t/o tx session to demo increased scapular strength/stabilization Goal Time Frame: 4-6 Weeks Goal 4:: Patient will report 80% improvement Goal Time Frame: 4-6 Weeks Rehabilitation Potential Physical Therapy Diagnosis: Patient presents with hypomobility- she has decreased pain free ROM, UE and scapular strength/stabilization and muscular endurance leading to poor posture and inability to perform ADL's. Rehabilitation Potential: Fair Anticipated Interventions Patient/Client Instruction: Educate patient on: Benefits of Fitness Program Therapeutic Exercise to Include: Strength training, Endurance training, Coordination, Agility training, Body mechanics, Postural training, Flexibilty training, Neuromotor development, Active ROM, Dynamic Lumbar Stabilization and Scapular Strength/Stabilization For the Purpose of:: To improve muscle performance and motor function TENS: Yes Cryotherapy (ice pack, ice massage): Yes Thermo therapy (hot pack): Yes Ultrasound (thermal/non thermal): Yes For the Purpose of:: To decrease pain Text: Thank you for the opportunity to evaluate your patient. For Medicare and Medicare HMO plans, please review the plan of care and approve it. It will need to be FAXED BACK to us at [phone] for Medicare purposes. For Medicare only, by signing this I certify the plan of care. Please let me know if there are questions or concerns regarding this plan of care. Physician Signature: Date:
== END 2023-09-12 19:00 | disposition home or self-care (01) ==
LOC: OT 13:00
PROVIDERS: PCP Family Medicine; Referring Provider Physician Assistant Surgical; Visit Provider Physician Assistant Surgical
DX: S52.571D Other intraarticular fracture of lower end of right radius, subsequent encounter for closed fracture with routine healing (principal)
CPT/HCPCS: 97035; 97110; 97140; 97162; 97164; 97166; 97530

== ENCOUNTER → 2023-11-26 | Outpatient (CLI) | payer BC, SELFPAY ==
[2023-11-26 12:24] LABS: Absolute Lymphocyte Count 3.44 X10^3/uL (0.83-4.51); Absolute Neutrophil Count 2.7 X10^3/uL (2.0-7.7); Basophil# 0.04 X10^3/uL; Basophil% 0.6 % (0-1); Eosinophil# 0.05 X10^3/uL; Eosinophils% 0.8 % (0-5); Hemoglobin 13.4 g/dL (12.0-15.0); Lymphocyte # 3.44 X10^3/ul (0.83-4.51); Lymphocyte % 52.1 % (19-41); Mean Corp Hgb Conc 32.7 g/dL (32-36); Mean Corpuscular Volume 94.9 fL (81-99); Mean Platelet Vol. 10.7 fl (6.2-12.0); Monocyte# 0.37 X10^3/uL; Monocyte% 5.6 % (0-10); NRBC Flagged by Analyzer 0 % (0-5); Neutrophil # 2.69 X10^3/uL (2.7-7.7); Neutrophil % 40.7 % (47-70); Platelet Count 265 K/mm3 (150-450); RBC Distribution Width CV 13.8 % (11.6-14.6); RBC Distribution Width SD 48.9 fl (35.1-43.9); Red Blood Count 4.32 M/mm3 (4.2-5.4); White Blood Count 6.6 K/mm3 (4.4-11.0)
[2023-11-26 13:05] LABS: ALB/GLOB Ratio 1.1 RATIO (0.9-2.4); AST(SGOT) 21 U/L (15-37); Alanine Aminotransfer ALT/SGPT 37 U/L (13-56); Albumin, Serum 3.9 g/dL (3.2-5.0); Alkaline Phosphatase 88 U/L (45-117); Anion Gap 7 (5-15); BUN 11 mg/dL (7-18); BUN/Creat Ratio 12.7 RATIO (10-20); Calcium,Total 9.1 mg/dL (8.5-10.1); Chloride 108 mmol/L (98-107); Creatinine, Serum 0.87 mg/dL (0.55-1.02); EST Glomerular Filtration Rate 72 mL/min (>60); Est Glom Filt Rate - Afr Amer 87 mL/min (>60); Globulin 3.4 g/dL (2.2-4.2); Glucose 131 mg/dL (74-106); Potassium 3.7 mmol/L (3.5-5.1); Protein, Total 7.3 g/dL (6.4-8.2); Sodium Level 140 mmol/L (136-145)
== END | disposition home or self-care (01) ==
LOC: MTLAB 11:18
PROVIDERS: PCP Family Medicine; Referring Provider Internal Medicine Rheumatology; Visit Provider Internal Medicine Rheumatology
DX: M06.09 Rheumatoid arthritis without rheumatoid factor, multiple sites (principal); Z79.899 Other long term (current) drug therapy
CPT/HCPCS: 36415; 80053; 85025

== ENCOUNTER → 2024-02-19 | Outpatient (CLI) | payer BC, SELFPAY ==
[2024-02-19 10:26] LABS: Absolute Lymphocyte Count 3.29 X10^3/uL (0.83-4.51); Absolute Neutrophil Count 2.5 X10^3/uL (2.0-7.7); Basophil# 0.04 X10^3/uL; Basophil% 0.6 % (0-1); Eosinophil# 0.09 X10^3/uL; Eosinophils% 1.4 % (0-5); Hematocrit 41.2 % (37-47); Hemoglobin 13.3 g/dL (12.0-15.0); Lymphocyte # 3.29 X10^3/ul (0.83-4.51); Lymphocyte % 51.6 % (19-41); Mean Corp Hgb Conc 32.3 g/dL (32-36); Mean Corpuscular Hgb 30.2 pg (27.0-32.0); Mean Corpuscular Volume 93.6 fL (81-99); Mean Platelet Vol. 10.6 fl (6.2-12.0); Monocyte# 0.44 X10^3/uL; Monocyte% 6.9 % (0-10); NRBC Flagged by Analyzer 0 % (0-5); Neutrophil % 39.3 % (47-70); Platelet Count 253 K/mm3 (150-450); RBC Distribution Width CV 13.8 % (11.6-14.6); RBC Distribution Width SD 46.6 fl (35.1-43.9); White Blood Count 6.4 K/mm3 (4.4-11.0)
[2024-02-19 10:32] LABS: Hemoglobin A1c 5.6 % (3.8-5.6)
[2024-02-19 10:38] LABS: ALB/GLOB Ratio 1.1 RATIO (0.9-2.4); AST(SGOT) 32 U/L (15-37); Alanine Aminotransfer ALT/SGPT 57 U/L (13-56); Albumin, Serum 3.9 g/dL (3.2-5.0); Alkaline Phosphatase 79 U/L (45-117); Anion Gap 6 (5-15); BUN 14 mg/dL (7-18); BUN/Creat Ratio 15.6 RATIO (10-20); Calcium,Total 9.2 mg/dL (8.5-10.1); Chloride 106 mmol/L (98-107); Cholesterol 215 mg/dL (200); EST Glomerular Filtration Rate 69 mL/min (>60); Est Glom Filt Rate - Afr Amer 83 mL/min (>60); Globulin 3.6 g/dL (2.2-4.2); Glucose 107 mg/dL (74-106); High Density Lipoprotein 66 mg/dL; Magnesium 2.3 mg/dL (1.6-2.6); Potassium 3.5 mmol/L (3.5-5.1); Protein, Total 7.5 g/dL (6.4-8.2); Sodium Level 138 mmol/L (136-145); Triglycerides 152 mg/dL; Very Low Density Lipoprotein 30 mg/dL (5-40)
[2024-02-19 10:42] LABS: Vitamin B12 659 pg/mL (211-911)
== END | disposition home or self-care (01) ==
LOC: MTLAB 07:39
PROVIDERS: PCP Family Medicine; Referring Provider Internal Medicine Rheumatology; Visit Provider Internal Medicine Rheumatology
DX: Z00.00 Encounter for general adult medical examination without abnormal findings (principal); M06.09 Rheumatoid arthritis without rheumatoid factor, multiple sites; K21.9 Gastro-esophageal reflux disease without esophagitis; Z79.899 Other long term (current) drug therapy; Z13.6 Encounter for screening for cardiovascular disorders; Z13.220 Encounter for screening for lipoid disorders; Z13.1 Encounter for screening for diabetes mellitus
CPT/HCPCS: 36415; 80053; 80061; 82607; 83036; 83735; 85025

== ENCOUNTER → 2024-03-10 | Outpatient (CLI) | payer BC, SELFPAY ==
[2024-03-10 09:55] LABS: Absolute Lymphocyte Count 3.37 X10^3/uL (0.83-4.51); Absolute Neutrophil Count 2.4 X10^3/uL (2.0-7.7); Basophil# 0.04 X10^3/uL; Basophil% 0.6 % (0-1); Eosinophil# 0.26 X10^3/uL; Hematocrit 40.9 % (37-47); Hemoglobin 13.4 g/dL (12.0-15.0); Lymphocyte # 3.37 X10^3/ul (0.83-4.51); Lymphocyte % 52.3 % (19-41); Mean Corp Hgb Conc 32.8 g/dL (32-36); Mean Corpuscular Volume 94.7 fL (81-99); Mean Platelet Vol. 10.7 fl (6.2-12.0); Monocyte# 0.39 X10^3/uL; Monocyte% 6.1 % (0-10); NRBC Flagged by Analyzer 0 % (0-5); Neutrophil # 2.37 X10^3/uL (2.7-7.7); Neutrophil % 36.8 % (47-70); Platelet Count 225 K/mm3 (150-450); RBC Distribution Width CV 14.1 % (11.6-14.6); RBC Distribution Width SD 49.1 fl (35.1-43.9); Red Blood Count 4.32 M/mm3 (4.2-5.4); White Blood Count 6.4 K/mm3 (4.4-11.0)
[2024-03-10 10:44] LABS: ALB/GLOB Ratio 1.3 RATIO (0.9-2.4); AST(SGOT) 24 U/L (15-37); Alanine Aminotransfer ALT/SGPT 43 U/L (13-56); Alkaline Phosphatase 69 U/L (45-117); Anion Gap 3 (5-15); BUN 15 mg/dL (7-18); Chloride 107 mmol/L (98-107); Creatinine, Serum 0.79 mg/dL (0.55-1.02); EST Glomerular Filtration Rate 80 mL/min (>60); Est Glom Filt Rate - Afr Amer 97 mL/min (>60); Globulin 3.1 g/dL (2.2-4.2); Glucose 107 mg/dL (74-106); Potassium 3.7 mmol/L (3.5-5.1); Protein, Total 7.1 g/dL (6.4-8.2); Sodium Level 139 mmol/L (136-145)
== END | disposition home or self-care (01) ==
LOC: MTLAB 09:15
PROVIDERS: PCP Family Medicine; Referring Provider Internal Medicine Rheumatology; Visit Provider Internal Medicine Rheumatology
DX: M06.09 Rheumatoid arthritis without rheumatoid factor, multiple sites (principal); Z79.899 Other long term (current) drug therapy
CPT/HCPCS: 36415; 80053; 85025

== ENCOUNTER → 2024-05-12 | Outpatient (CLI) | payer BC, SELFPAY ==
[2024-05-12 10:08] LABS: Absolute Lymphocyte Count 2.57 X10^3/uL (0.83-4.51); Basophil# 0.03 X10^3/uL; Basophil% 0.6 % (0-1); Eosinophil# 0.09 X10^3/uL; Eosinophils% 1.7 % (0-5); Hematocrit 40.3 % (37-47); Hemoglobin 13.1 g/dL (12.0-15.0); Lymphocyte # 2.57 X10^3/ul (0.83-4.51); Lymphocyte % 49.3 % (19-41); Mean Corp Hgb Conc 32.5 g/dL (32-36); Mean Corpuscular Volume 95.5 fL (81-99); Mean Platelet Vol. 10.4 fl (6.2-12.0); Monocyte# 0.51 X10^3/uL; Monocyte% 9.8 % (0-10); NRBC Flagged by Analyzer 0 % (0-5); Neutrophil % 38.4 % (47-70); Platelet Count 260 K/mm3 (150-450); RBC Distribution Width CV 14.5 % (11.6-14.6); RBC Distribution Width SD 50.5 fl (35.1-43.9); Red Blood Count 4.22 M/mm3 (4.2-5.4); White Blood Count 5.2 K/mm3 (4.4-11.0)
[2024-05-12 10:42] LABS: ALB/GLOB Ratio 1.1 RATIO (0.9-2.4); AST(SGOT) 31 U/L (15-37); Alanine Aminotransfer ALT/SGPT 52 U/L (13-56); Albumin, Serum 3.9 g/dL (3.2-5.0); Alkaline Phosphatase 76 U/L (45-117); Anion Gap 7 (5-15); BUN 11 mg/dL (7-18); BUN/Creat Ratio 12.2 RATIO (10-20); Calcium,Total 9.3 mg/dL (8.5-10.1); Chloride 106 mmol/L (98-107); Cholesterol 216 mg/dL (200); EST Glomerular Filtration Rate 69 mL/min (>60); Est Glom Filt Rate - Afr Amer 83 mL/min (>60); Globulin 3.5 g/dL (2.2-4.2); Glucose 108 mg/dL (74-106); High Density Lipoprotein 66 mg/dL; Potassium 3.8 mmol/L (3.5-5.1); Protein, Total 7.4 g/dL (6.4-8.2); Sodium Level 139 mmol/L (136-145); Triglycerides 153 mg/dL; Very Low Density Lipoprotein 31 mg/dL (5-40)
== END | disposition home or self-care (01) ==
LOC: MTLAB 07:25
PROVIDERS: PCP Family Medicine; Referring Provider Internal Medicine Rheumatology; Visit Provider Internal Medicine Rheumatology
DX: M06.09 Rheumatoid arthritis without rheumatoid factor, multiple sites (principal); K76.0 Fatty (change of) liver, not elsewhere classified; Z79.899 Other long term (current) drug therapy
CPT/HCPCS: 36415; 80053; 80061; 85025

== ENCOUNTER → 2024-05-19 | Outpatient (CLI) | payer BC, SELFPAY ==
[2024-05-22 04:07] LABS: QNTFERON TB Mitogen Value > 10.00 IU/mL (.); QNTFERON TB Nil Value 0.07 IU/mL (.); QNTFERON TB1+ Ag Value 0.08 IU/mL (.); QNTFERON TB2+ Ag Value 0.09 IU/mL (.); QNTIFERON TB Positive Criteria Negative (Negative)
== END | disposition home or self-care (01) ==
LOC: MTLAB 08:45
PROVIDERS: PCP Family Medicine; Referring Provider Internal Medicine Rheumatology; Visit Provider Internal Medicine Rheumatology
DX: M06.09 Rheumatoid arthritis without rheumatoid factor, multiple sites (principal); Z79.899 Other long term (current) drug therapy
CPT/HCPCS: 36415; 86480

== ENCOUNTER → 2024-08-04 | Outpatient (CLI) | payer BC, SELFPAY ==
[2024-08-04 09:53] LABS: Absolute Lymphocyte Count 2.82 X10^3/uL (0.83-4.51); Absolute Neutrophil Count 2.4 X10^3/uL (2.0-7.7); Basophil# 0.06 X10^3/uL; Eosinophil# 0.37 X10^3/uL; Eosinophils% 6.1 % (0-5); Hematocrit 41.1 % (37-47); Hemoglobin 13.2 g/dL (12.0-15.0); Lymphocyte # 2.82 X10^3/ul (0.83-4.51); Lymphocyte % 46.7 % (19-41); Mean Corp Hgb Conc 32.1 g/dL (32-36); Mean Corpuscular Hgb 30.7 pg (27.0-32.0); Mean Corpuscular Volume 95.6 fL (81-99); Mean Platelet Vol. 10.5 fl (6.2-12.0); Monocyte# 0.41 X10^3/uL; Monocyte% 6.8 % (0-10); NRBC Flagged by Analyzer 0 % (0-5); Neutrophil # 2.37 X10^3/uL (2.7-7.7); Neutrophil % 39.2 % (47-70); Platelet Count 256 K/mm3 (150-450); RBC Distribution Width CV 13.1 % (11.6-14.6); RBC Distribution Width SD 45.3 fl (35.1-43.9)
[2024-08-04 10:52] LABS: ALB/GLOB Ratio 1.1 RATIO (0.9-2.4); AST(SGOT) 20 U/L (15-37); Alanine Aminotransfer ALT/SGPT 34 U/L (13-56); Albumin, Serum 3.8 g/dL (3.2-5.0); Alkaline Phosphatase 80 U/L (45-117); Anion Gap 6 (5-15); BUN 10 mg/dL (7-18); BUN/Creat Ratio 10.9 RATIO (10-20); Calcium,Total 9.3 mg/dL (8.5-10.1); Chloride 108 mmol/L (98-107); Creatinine, Serum 0.92 mg/dL (0.55-1.02); EST Glomerular Filtration Rate 67 mL/min (>60); Est Glom Filt Rate - Afr Amer 81 mL/min (>60); Globulin 3.5 g/dL (2.2-4.2); Glucose 110 mg/dL (74-106); Potassium 3.7 mmol/L (3.5-5.1); Protein, Total 7.3 g/dL (6.4-8.2); Sodium Level 139 mmol/L (136-145)
== END | disposition home or self-care (01) ==
LOC: MTLAB 08:30
PROVIDERS: PCP Family Medicine; Referring Provider Internal Medicine Rheumatology; Visit Provider Internal Medicine Rheumatology
DX: M06.09 Rheumatoid arthritis without rheumatoid factor, multiple sites (principal); Z79.899 Other long term (current) drug therapy
CPT/HCPCS: 36415; 80053; 85025

== ENCOUNTER → 2024-10-29 | Outpatient (CLI) | payer BC, SELFPAY ==
[2024-10-29 10:32] LABS: Absolute Lymphocyte Count 3.25 X10^3/uL (0.83-4.51); Absolute Neutrophil Count 1.4 X10^3/uL (2.0-7.7); Basophil# 0.04 X10^3/uL; Basophil% 0.8 % (0-1); Eosinophil# 0.09 X10^3/uL; Eosinophils% 1.7 % (0-5); Hematocrit 42.2 % (37-47); Lymphocyte # 3.25 X10^3/ul (0.83-4.51); Lymphocyte % 62.5 % (19-41); Mean Corp Hgb Conc 33.2 g/dL (32-36); Mean Corpuscular Hgb 30.3 pg (27.0-32.0); Mean Corpuscular Volume 91.3 fL (81-99); Mean Platelet Vol. 10.6 fl (6.2-12.0); Monocyte# 0.37 X10^3/uL; Monocyte% 7.1 % (0-10); NRBC Flagged by Analyzer 0 % (0-5); Neutrophil # 1.44 X10^3/uL (2.7-7.7); Neutrophil % 27.7 % (47-70); Platelet Count 201 K/mm3 (150-450); RBC Distribution Width CV 14.6 % (11.6-14.6); RBC Distribution Width SD 48.2 fl (35.1-43.9); Red Blood Count 4.62 M/mm3 (4.2-5.4); White Blood Count 5.2 K/mm3 (4.4-11.0)
[2024-10-29 10:53] LABS: ALB/GLOB Ratio 1.5 RATIO (0.9-2.4); AST(SGOT) 30 U/L (15-37); Alanine Aminotransfer ALT/SGPT 61 U/L (13-56); Albumin, Serum 4.3 g/dL (3.2-5.0); Alkaline Phosphatase 61 U/L (45-117); Anion Gap 4 (5-15); BUN 12 mg/dL (7-18); BUN/Creat Ratio 12.1 RATIO (10-20); Calcium,Total 9.1 mg/dL (8.5-10.1); Chloride 107 mmol/L (98-107); Creatinine, Serum 0.99 mg/dL (0.55-1.02); EST Glomerular Filtration Rate 61 mL/min (>60); Est Glom Filt Rate - Afr Amer 74 mL/min (>60); Globulin 2.9 g/dL (2.2-4.2); Glucose 111 mg/dL (74-106); Potassium 3.3 mmol/L (3.5-5.1); Protein, Total 7.2 g/dL (6.4-8.2); Sodium Level 138 mmol/L (136-145)
== END | disposition home or self-care (01) ==
PROVIDERS: PCP Family Medicine; Referring Provider Internal Medicine Rheumatology; Visit Provider Internal Medicine Rheumatology
DX: M06.09 Rheumatoid arthritis without rheumatoid factor, multiple sites (principal); Z79.899 Other long term (current) drug therapy
CPT/HCPCS: 36415; 80053; 85025

== ENCOUNTER → 2024-12-01 | Outpatient (CLI) | payer BC, SELFPAY ==
[2024-12-01 10:04] LABS: Absolute Lymphocyte Count 3.24 X10^3/uL (0.83-4.51); Absolute Neutrophil Count 1.4 X10^3/uL (2.0-7.7); Basophil# 0.04 X10^3/uL; Basophil% 0.8 % (0-1); Eosinophil# 0.15 X10^3/uL; Eosinophils% 2.9 % (0-5); Hematocrit 42.2 % (37-47); Hemoglobin 13.8 g/dL (12.0-15.0); Lymphocyte # 3.24 X10^3/ul (0.83-4.51); Lymphocyte % 62.8 % (19-41); Mean Corp Hgb Conc 32.7 g/dL (32-36); Mean Corpuscular Hgb 30.7 pg (27.0-32.0); Mean Corpuscular Volume 93.8 fL (81-99); Mean Platelet Vol. 10.5 fl (6.2-12.0); Monocyte# 0.37 X10^3/uL; Monocyte% 7.2 % (0-10); NRBC Flagged by Analyzer 0 % (0-5); Neutrophil # 1.35 X10^3/uL (2.7-7.7); Neutrophil % 26.1 % (47-70); Platelet Count 204 K/mm3 (150-450); RBC Distribution Width CV 14.3 % (11.6-14.6); RBC Distribution Width SD 49.4 fl (35.1-43.9); White Blood Count 5.2 K/mm3 (4.4-11.0)
[2024-12-01 10:15] LABS: ALB/GLOB Ratio 1.2 RATIO (0.9-2.4); AST(SGOT) 24 U/L (15-37); Alanine Aminotransfer ALT/SGPT 53 U/L (13-56); Alkaline Phosphatase 59 U/L (45-117); Anion Gap 2 (5-15); BUN 15 mg/dL (7-18); BUN/Creat Ratio 16.3 RATIO (10-20); Chloride 107 mmol/L (98-107); Creatinine, Serum 0.92 mg/dL (0.55-1.02); EST Glomerular Filtration Rate 67 mL/min (>60); Est Glom Filt Rate - Afr Amer 81 mL/min (>60); Globulin 3.2 g/dL (2.2-4.2); Glucose 116 mg/dL (74-106); Potassium 3.7 mmol/L (3.5-5.1); Protein, Total 7.2 g/dL (6.4-8.2); Sodium Level 138 mmol/L (136-145)
== END | disposition home or self-care (01) ==
LOC: MTLAB 08:59
PROVIDERS: PCP Family Medicine; Referring Provider Internal Medicine Rheumatology; Visit Provider Internal Medicine Rheumatology
DX: M06.09 Rheumatoid arthritis without rheumatoid factor, multiple sites (principal); Z79.899 Other long term (current) drug therapy
CPT/HCPCS: 36415; 80053; 85025

== ENCOUNTER 2024-12-13 20:17 | Emergency (ER) | payer BC, SELFPAY ==
[2024-12-13 20:18] VITALS: BP 157/79; PULSE 78; RESP 16; TEMP 36.8; O2SAT 98
[2024-12-13 20:21] VITALS: O2SAT 96
--- NOTE | 2024-12-13 20:27 | ED.VIS.DYS ---
HPI History of Present Illness Chief Complaint: Cough Informant: patient Narrative Narrative: Patient is a 58-year-old female with history of RA (on abatacept and methotrexate) presenting with 3 weeks of cough. Patient states that her and her both had some type of respiratory illness but she continues to have a cough. She denies any history of asthma or COPD but states she has had bronchitis in the past. She is having some chest discomfort just from coughing. Denies any shortness of breath. Denies any sore throat. Denies any nausea or vomiting. No fevers or chills reported. No other complaints or concerns at this time. [facility] Medical History GERD (gastroesophageal reflux disease) Multiple thyroid nodules Rheumatoid arteritis Home Medications ?Medication ?Instructions ?Recorded ?Last Taken ?Type methotrexate sodium 2.5 mg tablet 8 tab PO Q7D 09/05/13 Unknown History acetaminophen 500 mg tablet 500 mg PO PRN PRN Pain 03/12/17 Unknown History esomeprazole magnesium 20 mg 20 mg PO DAILY 03/12/17 Unknown History tablet,delayed release folic acid 1 mg tablet 2 mg PO DAILY@0800 03/12/17 Unknown History leucovorin calcium 15 mg tablet 15 mg PO Q7D 03/12/17 Unknown History multivitamin with folic acid 400 1 tab PO DAILY 03/12/17 Unknown History mcg tablet naproxen 500 mg tablet 500 mg PO DAILY PRN PRN Pain 03/12/17 Unknown History lorazepam 2 mg tablet (Ativan) 2 mg PO ONCE #1 TAB 01/19/19 Unknown Rx abatacept 125 mg/mL subcutaneous 125 mg subcut QWEEK 07/11/20 Unknown History syringe (Orencia) hydroxychloroquine 200 mg tablet 200 mg PO DAILY 07/11/20 Unknown History (Plaquenil) hydrocodone-acetaminophen 5-325mg 1 tab PO Q6H PRN PRN Pain 3 days 05/15/23 Unknown Rx 5mg-325mg #12 TABLETS benzonatate 200 mg capsule 200 mg PO TID PRN cough #20 caps 12/13/24 Unknown Rx prednisone 20 mg tablet 40 mg (2 x 20 mg) PO DAILY #8 tabs 12/13/24 Unknown Rx Allergy/AdvReac Type Severity Reaction Status Date / Time Penicillins Allergy Mild Shortness Verified 12/13/24 20:21 of breath, rash Family History Mother Diabetes Father Cancer unsure type Surgical History History of colonoscopy (~2012) History of tonsillectomy History of wisdom tooth extraction Status post biopsy of thyroid gland (~01/2019) Social History (Updated 12/13/24 @ 20:22 by Maureen Adams) household members: spouse housing: house Smoking Status: Never smoker ROS ROS ED Constitutional Constitutional ED: Denies chills or fever(s) ENT ENT ED: Denies rhinorrhea Cardiovascular Cardiovascular: Reports chest pain Respiratory/Chest Respiratory/Chest: Reports cough; Denies dyspnea or sputum Gastrointestinal Gastrointestinal: Denies nausea or vomiting Musculoskeletal Musculoskeletal: Denies myalgias Integumentary Denies rash EXAM Physical Exam Const Vital Signs: 12/13/24 20:18 12/13/24 20:21 12/13/24 20:36 Temperature 98.3 F Temperature Source Oral Pulse Rate 78 88 Respiratory Rate 16 20 H Respiratory Effort Normal Short of Breath Respiratory Depth Normal Respiratory Pattern Normal Tachypnea Blood Pressure 157/79 H Blood Pressure Mean 105 Pulse Ox 98 Oxygen Delivery Method Room Air 12/13/24 22:17 12/13/24 23:10 Temperature 98.2 F Temperature Source Pulse Rate 78 78 Respiratory Rate 16 Respiratory Effort Respiratory Depth Respiratory Pattern Blood Pressure 138/78 H 138/78 H Blood Pressure Mean 98 98 Pulse Ox 98 Oxygen Delivery Method Positive well nourished and well developed General Appearance ED: well developed and NAD; Negative for pallor HEENT Reports TM's clear and moist mucous membranes Tympanic Membrane ED: Yes TM's clear Eyes PERRL Neck supple and no JVD Resp normal respiratory effort Resp Narrative: Persistent bronchial cough. Rhonchorous breath sounds throughout with end expiratory wheezing noted at the right lung base Cardio regular rate, regular rhythm and no murmurs Extremity normal to inspection General Extremety ED: Negative for edema General Extremity: Negative for edema Neuro oriented x3 Sensorium / Orientation: alert Psych mental status grossly normal Skin no wounds General Skin Exam: Negative for pallor MDM MDM MDM Narrative Medical decision making narrative: Patient is evaluated for a pretty persistent cough. Patient was actually here with her who is being evaluated for separate issue and she was noted to have quite severe bronchial cough. She decided to be checked in. Patient's vital signs are largely normal. She is not hypoxic. She has coarse breath sounds with some extra wheezing. Differential includes pneumonia, bronchitis, reactive airway and viral infection. Chest x-ray obtained. Patient is given a DuoNeb with some improvement of her cough but she does continue to cough. She is given steroids, and inhaler to go home with as well as Tessalon Perles. Chest x-ray viewed by myself as well as radiology does not show any acute process. Do not think patient requires antibiotics that she does not have an infiltrate on her chest x-ray and she is not reporting any fevers. Will be discharged home on a course of steroids and a prescription for Tessalon Perles. Counseled on using albuterol inhaler. Given return precautions. Encouraged follow-up with primary care doctor. Discharged home in stable condition Radiography Diagnostic Testing: Clinical Impression(s) from Imaging Studies Chest X-Ray 12/13/24 20:28 IMPRESSION: No active cardiopulmonary disease. Reading Location: [facility] Discharge Plan Triage Chief Complaint: Cough ED Provider: Jo Abarca Dx/Rx/DC Orders Clinical Impression: Bronchitis Instructions: ED Bronchitis with Wheezing (Adult) Prescriptions: New prednisone 20 mg tablet 40 mg PO DAILY Qty: 8 0RF benzonatate 200 mg capsule 200 mg PO TID PRN (Reason: cough) Qty: 20 0RF No Action lorazepam [Ativan] 2 mg tablet 2 mg PO ONCE Qty: 1 0RF Rx Instructions: Take one tablet one hour prior to procedure Orencia 125 mg/mL syringe 125 mg SC QWEEK Rx Instructions: inject into abdomen, thigh, or outer area of arm; rotate sites hydroxychloroquine [Plaquenil] 200 mg tablet 200 mg PO DAILY methotrexate sodium 2.5 MG tablet 8 tab PO Q7D acetaminophen 500 MG tablet 500 mg PO PRN PRN (Reason: Pain) leucovorin calcium 15 MG tablet 15 mg PO Q7D folic acid 1 MG tablet 2 mg PO DAILY@0800 naproxen 500 MG tablet 500 mg PO DAILY PRN PRN (Reason: Pain) esomeprazole magnesium 20 MG tablet,delayed release (DR/EC) 20 mg PO DAILY multivitamin with folic acid 1 TABLET tablet 1 tab PO DAILY hydrocodone-acetaminophen 5-325 mg tablet 1 tab PO Q6H PRN PRN (Reason: Pain) 3 Days Qty: 12 0RF Primary Care Provider: Herman Del Cid Referrals: Herman Del Cid MD [Primary Care Provider] - Print Language: Telugu Disposition Disposition: Home, Self Care Discharge Date/Time: 12/13/24 23:11
--- NOTE | 2024-12-13 20:28 | RAD_ITS ---
PROCEDURE: CHEST PA AND LATERAL REASON FOR EXAM: Unable to catch breath. Cough for 3 weeks. TECHNIQUE: Single frontal image including the chest and upper abdomen. COMPARISON: Chest radiograph dated 05/15/2023 FINDINGS: Lungs are clear of pneumonia and congestion. No pleural effusions, thickening, or pneumothorax. Heart and mediastinum are normal. Aorta is atherosclerotic and tortuous. No hilar masses. Bones and soft tissues are unremarkable. RAD/Chest PA and Lateral IMPRESSION: No active cardiopulmonary disease. Reading Location: [facility]
[2024-12-13] MEDS: predniSONE 20 MG Tablet 60 MG PO (20:30)
[2024-12-13] MEDS: Ipratropium/Albuterol Sulfate 3 ML AMPUL.NEB INHALATION (20:30)
[2024-12-13 20:36] VITALS: PULSE 88; RESP 20
[2024-12-13 22:17] VITALS: BP 138/78; PULSE 78
[2024-12-13] MEDS: Benzonatate 100 MG Capsule 200 MG PO (23:05)
[2024-12-13] MEDS: Albuterol Sulfate 8 gm Inhaler (60 puffs) 2 PUFF INHALATION (23:07)
[2024-12-13 23:10] VITALS: BP 138/78; PULSE 78; RESP 16; TEMP 36.8; O2SAT 98
== END 2024-12-13 23:11 | disposition home or self-care (01) ==
PROVIDERS: Emergency Provider Emergency Medicine; PCP Family Medicine; Referring Provider Emergency Medicine; Visit Provider Emergency Medicine
DX: J40 Bronchitis, not specified as acute or chronic (principal); M06.9 Rheumatoid arthritis, unspecified; K21.9 Gastro-esophageal reflux disease without esophagitis; Z79.899 Other long term (current) drug therapy
CPT/HCPCS: 71046; 94640; 99283

== ENCOUNTER → 2025-02-22 | Outpatient (CLI) | payer BC, SELFPAY ==
[2025-02-22 11:27] LABS: Absolute Lymphocyte Count 2.65 X10^3/uL (0.83-4.51); Absolute Neutrophil Count 1.3 X10^3/uL (2.0-7.7); Basophil# 0.05 X10^3/uL; Basophil% 1.1 % (0-1); Eosinophil# 0.18 X10^3/uL; Eosinophils% 3.9 % (0-5); Hematocrit 41.2 % (37-47); Hemoglobin 13.9 g/dL (12.0-15.0); Lymphocyte # 2.65 X10^3/ul (0.83-4.51); Mean Corp Hgb Conc 33.7 g/dL (32-36); Mean Corpuscular Volume 94.7 fL (81-99); Mean Platelet Vol. 10.9 fl (6.2-12.0); Monocyte# 0.41 X10^3/uL; NRBC Flagged by Analyzer 0 % (0-5); Neutrophil # 1.27 X10^3/uL (2.7-7.7); Neutrophil % 27.8 % (47-70); Platelet Count 199 K/mm3 (150-450); RBC Distribution Width CV 13.2 % (11.6-14.6); RBC Distribution Width SD 45.7 fl (35.1-43.9); Red Blood Count 4.35 M/mm3 (4.2-5.4); White Blood Count 4.6 K/mm3 (4.4-11.0)
[2025-02-22 11:36] LABS: Hemoglobin A1c 5.6 % (<=5.6)
[2025-02-22 11:49] LABS: ALB/GLOB Ratio 2.1 RATIO (0.9-2.4); AST(SGOT) 31 U/L (<=31); Alanine Aminotransfer ALT/SGPT 43 U/L (<=34); Albumin, Serum 4.5 g/dL (3.5-5.0); Alkaline Phosphatase 58 U/L (35-104); Anion Gap 11 (5-15); BUN 10 mg/dL (4-19); BUN/Creat Ratio 11.1 RATIO (10-20); Calcium,Total 9.1 mg/dL (7.6-11.0); Carbon Dioxide 24.6 mmol/L (21.0-32.0); Chloride 104 mmol/L (98-108); Cholesterol 259 mg/dL (<=200); Creatinine, Serum 0.88 mg/dL (0.70-1.20); EST Glomerular Filtration Rate 77 (>60); Globulin 2.1 g/dL (2.2-4.2); Glucose 101 mg/dL (70-99); High Density Lipoprotein 65 mg/dL; Low Density Lipoprotein Calc. 168 mg/dL; Magnesium 2.1 mg/dL (1.5-2.2); Potassium 3.5 mmol/L (3.3-5.1); Protein, Total 6.6 g/dL (5.9-8.4); Sodium Level 140 mmol/L (133-145); Total Bilirubin 0.49 mg/dL (0.00-1.30); Triglycerides 131 mg/dL; Very Low Density Lipoprotein 26 mg/dL (5-40); Vitamin B12 723 pg/mL (180-914)
== END | disposition home or self-care (01) ==
LOC: MTLAB 08:43
PROVIDERS: PCP Family Medicine; Referring Provider Family Medicine; Visit Provider Family Medicine
DX: Z00.00 Encounter for general adult medical examination without abnormal findings (principal); M06.09 Rheumatoid arthritis without rheumatoid factor, multiple sites; E04.2 Nontoxic multinodular goiter; K76.0 Fatty (change of) liver, not elsewhere classified; Z13.1 Encounter for screening for diabetes mellitus; Z13.220 Encounter for screening for lipoid disorders; Z13.6 Encounter for screening for cardiovascular disorders; K21.9 Gastro-esophageal reflux disease without esophagitis; Z79.899 Other long term (current) drug therapy
CPT/HCPCS: 36415; 80053; 80061; 82607; 83036; 83735; 84443; 85025

== ENCOUNTER → 2025-03-12 | Outpatient (CLI) | payer BC, SELFPAY ==
--- NOTE | 2025-03-12 09:16 | US_ITS ---
PROCEDURE: ABD LIMITED W/ ELASTOGRAPHY, 03/12/2025 REASON FOR EXAM: FATTY LIVER COMPARISON: 12/10/2022 TECHNIQUE: Grayscale and color Doppler imaging of the right upper quadrant was performed. Elastography was performed for non-invasive assessment of liver tissue stiffness utilizing a [employer] S-shear wave imaging unit. FINDINGS: Exam reportedly limited by patient condition as reportedly the patient is sensitive to touch. Liver: Echogenic. 13.0 cm in length. Gallbladder: Cholecystectomy. Biliary tree: Unremarkable. CBD measures 3 mm. Pancreas: Partially obscured by shadowing bowel gas, grossly unremarkable as visualized. Right kidney: Unremarkable. 9.7 cm in length. Other: No visualized free fluid. Hepatic elastography: Number of measurements: 15 measurements across 3 regions, 5 measurements per region. US probe: CA1-7A. EQI median: 7.2 kPa EQI median velocity: 1.5 m/s IQR/Med: 14.9-25.7% (kPa) and 7.5-12.4% (m/s). If the IQR/Med is IQR/median >30% (for kPa) or >15% in m/s, the variance in the measurements is a large and the accuracy of the measurement may be in question. US/ABD Limited w/ Elastography IMPRESSION: 1. Appearance of the liver most commonly suggestive of hepatic steatosis. Sharri elate for clinical and laboratory evidence of chronic liver disease. 2. Liver stiffness is 7.2 kPa. Per the below 2020 SRU criteria, this rules out compensated advanced chronic liver disease in the absence of other known clinical signs. If there are known clinical signs, furth er testing may be needed for confirmation. 3. Cholecystectomy without biliary dilatation. 4. Additional description as above. Assessment is per the Update to the SRU Liver Elastography Consensus Statement (2020) Note that the above assessment of liver fibrosis is vendor-neutral and intended for use in fibrosis related to viral etiologies and non-alcoholic fatty-liver disease (NAFLD); in causes other than viral hepat itis and NAFLD, the cutoff values are currently not well established. In some patients with NAFLD, the cutoff values for cACLD may be lower (7-9 kPa). Note also that in the setting of elevated LFTs, nonfasting or vascular congestion, the stage of lifer fibrosis may be overestimated. Previous SRU reference values: <1.37 m/s (5.7kPa): No to mild fibrosis 1.37 m/s - 2.2 m/s: Moderate to severe fibrosis >2.2 m/s (15kPa): Significant fibrosis / cirrhosis Reading Location: [facility]
== END | disposition home or self-care (01) ==
PROVIDERS: PCP Family Medicine; Referring Provider Family Medicine; Visit Provider Family Medicine
DX: K76.0 Fatty (change of) liver, not elsewhere classified (principal)
CPT/HCPCS: 76705; 76981

== ENCOUNTER → 2025-03-30 | Outpatient (CLI) | payer BC, SELFPAY ==
[2025-03-30 10:41] LABS: Absolute Lymphocyte Count 3.35 X10^3/uL (0.83-4.51); Absolute Neutrophil Count 1.3 X10^3/uL (2.0-7.7); Basophil# 0.05 X10^3/uL; Basophil% 0.9 % (0-1); Eosinophil# 0.31 X10^3/uL; Eosinophils% 5.7 % (0-5); Hematocrit 41.8 % (37-47); Hemoglobin 14.3 g/dL (12.0-15.0); Lymphocyte # 3.35 X10^3/ul (0.83-4.51); Lymphocyte % 61.4 % (19-41); Mean Corp Hgb Conc 34.2 g/dL (32-36); Mean Corpuscular Volume 93.5 fL (81-99); Mean Platelet Vol. 11.7 fl (6.2-12.0); Monocyte# 0.43 X10^3/uL; Monocyte% 7.9 % (0-10); NRBC Flagged by Analyzer 0 % (0-5); Neutrophil # 1.32 X10^3/uL (2.7-7.7); Neutrophil % 24.1 % (47-70); Platelet Count 192 K/mm3 (150-450); RBC Distribution Width CV 12.7 % (11.6-14.6); RBC Distribution Width SD 43.5 fl (35.1-43.9); Red Blood Count 4.47 M/mm3 (4.2-5.4); White Blood Count 5.5 K/mm3 (4.4-11.0)
[2025-03-30 11:10] LABS: ALB/GLOB Ratio 1.9 RATIO (0.9-2.4); AST(SGOT) 28 U/L (<=31); Alanine Aminotransfer ALT/SGPT 37 U/L (<=34); Albumin, Serum 4.5 g/dL (3.5-5.0); Alkaline Phosphatase 64 U/L (35-104); Anion Gap 12 (5-15); BUN 9 mg/dL (4-19); BUN/Creat Ratio 11.1 RATIO (10-20); Calcium,Total 9.4 mg/dL (7.6-11.0); Carbon Dioxide 23.6 mmol/L (21.0-32.0); Chloride 105 mmol/L (98-108); Creatinine, Serum 0.84 mg/dL (0.70-1.20); EST Glomerular Filtration Rate 81 (>60); Globulin 2.3 g/dL (2.2-4.2); Glucose 111 mg/dL (70-99); Potassium 3.7 mmol/L (3.3-5.1); Protein, Total 6.8 g/dL (5.9-8.4); Sodium Level 140 mmol/L (133-145); Total Bilirubin 0.31 mg/dL (0.00-1.30)
== END | disposition home or self-care (01) ==
LOC: MTLAB 07:31
PROVIDERS: PCP Family Medicine; Referring Provider Internal Medicine Rheumatology; Visit Provider Internal Medicine Rheumatology
DX: M06.09 Rheumatoid arthritis without rheumatoid factor, multiple sites (principal); Z79.899 Other long term (current) drug therapy
CPT/HCPCS: 36415; 80053; 85025

== ENCOUNTER → 2025-05-17 | Outpatient (CLI) | payer BC, SELFPAY ==
[2025-05-17 10:41] LABS: Hematocrit 42.7 % (37-47); Hemoglobin 14.4 g/dL (12.0-15.0); Immature Granulocytes Count 0.010 X10^3/uL (0.0-0.0); Mean Corp Hgb Conc 33.7 g/dL (32-36); Mean Corpuscular Volume 93.2 fL (81-99); Mean Platelet Vol. 11.0 fl (6.2-12.0); NRBC Flagged by Analyzer 0 % (0-5); Platelet Count 176 K/mm3 (150-450); RBC Distribution Width CV 11.9 % (11.6-14.6); RBC Distribution Width SD 41.0 fl (35.1-43.9); Red Blood Count 4.58 M/mm3 (4.2-5.4); White Blood Count 5.9 K/mm3 (4.4-11.0)
[2025-05-17 10:48] LABS: AST(SGOT) 32 U/L (<=31); Alanine Aminotransfer ALT/SGPT 44 U/L (<=34); Albumin, Serum 4.5 g/dL (3.5-5.0); Alkaline Phosphatase 59 U/L (35-104); Anion Gap 11 (5-15); BUN 13 mg/dL (4-19); BUN/Creat Ratio 15.1 RATIO (10-20); Calcium,Total 9.2 mg/dL (7.6-11.0); Carbon Dioxide 24.4 mmol/L (21.0-32.0); Chloride 106 mmol/L (98-108); Globulin 2.3 g/dL (2.2-4.2); Glucose 104 mg/dL (70-99); Potassium 4.0 mmol/L (3.3-5.1)
== END | disposition home or self-care (01) ==
LOC: MTLAB 07:06
PROVIDERS: PCP Family Medicine; Referring Provider Internal Medicine Rheumatology; Visit Provider Internal Medicine Rheumatology
DX: M06.09 Rheumatoid arthritis without rheumatoid factor, multiple sites (principal); M47.897 Other spondylosis, lumbosacral region; Q66.70 Congenital pes cavus, unspecified foot; K76.0 Fatty (change of) liver, not elsewhere classified; Z79.899 Other long term (current) drug therapy
CPT/HCPCS: 36415; 80053; 85025

== ENCOUNTER → 2025-07-06 | Outpatient (CLI) | payer BC, SELFPAY ==
--- OUTSIDE RECORDS SUMMARY | 2025-07-06 07:21 | XMS RPT_ITS | CCD ---
Author Organization [facility] Care Team Providers Care Insights Strategist Name Role Phone Aris RN, Micki Monterroso Unavailable Micki Hurst RN Unavailable [phone] [facility] Nurse Unavailable Unavailable [facility] Nurse Unavailable Unavailable Harmony Hoyos Unavailable Unavailable Herman Murray MD Primary Care Provider Herman Murray MD Primary Care Provider [phone] Terese Rodriguez Primary Care Provider Herman Murray MD Primary Care Provider INA PETERSON Attending Unavailable TERESE ORTIZ Primary Care Unavailable INA PETERSON Attending Unavailable HERMAN MURRAY Primary Care Unavailable BACKERANTONINO Attending Unavailable BACKANTONINO SCHAFFER Referring Unavailable TERESE ORTIZ Primary Care Unavailable INA PETERSON Attending Unavailable TERESE ORTIZ Referring Unavailable TERESE ORTIZ Primary Care Unavailable Herman Murray MD Primary Care Provider [phone] Herman Murray MD Primary Care Provider [phone] Vickey MARRERON.RETAIL PARTS PROFESSIONAL, Yen Unavailable Eir Loza PA-C Unavailable Herman Murray MD Primary Care Provider Dr. Herman Murray MD Primary Care Provider [phone] Dr. Мария Perdomo MD Attending Provider Dr. Мария Perdomo MD Referring Provider Dr. Jo Abarca DO Attending Provider [phone]. Jo Abarca DO Referring Provider Dr. Jo Abarca DO Emergency Provider Terri RICK, Dr. Sutton Attending Provider Terri RICK, Dr. Sutton Referring Provider Conor RICK, Dr. Hsieh Other Provider Terri RICK, Dr. Sutton Primary Care Provider [phone] Conor RICK, Dr. Hsieh Attending Provider Conor RICK, Dr. Hsieh Referring Provider DANIELLE ORR Attending Unavailable VALE MACIAS Referring Unavailable TERRI, HERMAN A Primary Care Unavailable RONNI DIAZ Attending Unavailable TERRI, HERMAN A Primary Care Unavailable VALE MACIAS Attending Unavailable TERRI, HERMAN A Referring Unavailable TERRI, HERMAN A Primary Care Unavailable TERRI, HERMAN A Referring Unavailable TERRI, HERMAN A Primary Care Unavailable TERRI, HERMAN A Referring Unavailable TERRI, HERMAN A Primary Care Unavailable TERRI, HERMAN A Attending Unavailable TERRI, HERMAN A Referring Unavailable TERRI, HERMAN A Primary Care Unavailable TERRI, HERMAN A Attending Unavailable TERRI, HERMAN A Primary Care Unavailable TERRI, HERMAN A Referring Unavailable TERRI, HERMAN A Primary Care Unavailable TERRI, HERMAN A Attending Unavailable TERRI, HERMAN A Primary Care Unavailable TERRI, HERMAN A Primary Care Unavailable VALE MACIAS Attending Unavailable TERRI, HERMAN A Primary Care Unavailable Knoble DENTAL 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.RETAIL PARTS PROFESSIONAL, Yen Unavailable Eri Loza PA-C Unavailable Vickey DENTAL 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.RETAIL PARTS PROFESSIONAL, Yen Unavailable Dago CROWDER Eri Unavailable Terri, Herman Primary Care Unavailable Vellanki, Мария Consulting Unavailable Herman Murray Attending Unavailable Terri, Herman Referring Unavailable Vellanki, Мария Referring Unavailable Terri, Herman Primary Care Unavailable Vellanki, Мария Attending Unavailable Terri, Herman Primary Care Unavailable Jo Abarca Attending Unavailable Jo Abarca Referring Unavailable Vellanki, Мария Referring Unavailable Terri, Herman Primary Care Unavailable Riccolanraysa, Мария Attending Unavailable Riccolanraysa, Мария Attending Unavailable Vellanki, Мария Referring Unavailable Herman Murray Primary Care Unavailable Мария Perdomo Attending Unavailable Мария Perdomo Referring Unavailable Herman Murray Primary Care Unavailable Мария Perdomo Referring Unavailable Мария Perdomo Attending Unavailable Herman Murray Primary Care Unavailable Herman Murray Primary Care Unavailable Мария Perdomo Consulting Unavailable Herman Murray Attending Unavailable Herman Murray Referring Unavailable Terri RICK, Dr. Sutton Primary Care Provider Conor RICK, Dr. Hsieh Attending Provider Dr. Мария Perdomo MD Referring Provider Allergies Allergy Classification Reported Allergen(s) Allergy Type Date of Onset Reaction(s) Facility (5 sources) penicillin drug allergy 03-11-20 17 [facility] Work Phone: (5 sources) BERRIES AND CHERRYS; Translations: [BERRIES AND CHERRYS] food allergy 03-11-20 17 Rash,swelling [facility] Work Phone: (13 sources) Penicillins; Translations: [PENICILLINS] Drug Allergy 12-12-19 06 Other: See Comments [facility] Work Phone: (20 sources) Streptococcus pneumoniae type 1 capsular polysaccharide antigen / Streptococcus pneumoniae type 10A capsular polysaccharide antigen / Streptococcus pneumoniae type 11A capsular polysaccharide antigen / Streptococcus pneumoniae type 12F capsular polysaccharide antigen / Streptococcus pneumoniae type 14 capsular polysaccharide antigen / Streptococcus pneumoniae type 15B capsular polysaccharide antigen / Streptococcus pneumoniae type 17F capsular polysaccharide antigen / Streptococcus pneumoniae type 18C capsular polysaccharide antigen / Streptococcus pneumoniae type 19A capsular polysaccharide antigen / Streptococcus pneumoniae type 19F capsular polysaccharide antigen / Streptococcus pneumoniae type 2 capsular polysaccharide antigen / Streptococcus pneumoniae type 20 capsular polysaccharide antigen / Streptococcus pneumoniae type 22F capsular polysaccharide antigen / Streptococcus pneumoniae type 23F capsular polysaccharide antigen / Streptococcus pneumoniae type 3 capsular polysaccharide antigen / Streptococcus pneumoniae type 33F capsular polysaccharide antigen / Streptococcus pneumoniae type 4 capsular polysaccharide antigen / Streptococcus pneumoniae type 5 capsular polysaccharide antigen / Streptococcus pneumoniae type 6B capsular polysaccharide antigen / Streptococcus pneumoniae type 7F capsular polysaccharide antigen / Streptococcus pneumoniae type 8 capsular polysaccharide antigen / Streptococcus pneumoniae type 9N capsular polysaccharide antigen / Streptococcus pneumoniae type 9V capsular polysaccharide antigen; Translations: [PNEUMOCOCCAL 23-MATI PS VACCINE] Drug Allergy 06-25-20 18 Other: See Comments [facility] Work Phone: (20 sources) berries and cherries [Other] Propensity to adverse reactions 12-12-19 Rash, Swelling [facility] Work Phone: (20 sources) Adhesive Tape-Silicones; Translations: [ADHESIVE TAPE-SILICONES] Drug Allergy 02-27-20 22 Rash [facility] (15 sources) Penicillins Allergy to substance 07-11-20 20 Shortness of breath, rash [facility] (20 sources) Penicillins Drug Allergy 12-12-19 Other: See Comments [facility] Work Phone: (9 sources) Penicillins Drug Allergy 12-12-[address] [facility] (9 sources) Pneumococcal 13-Mati Conj Vacc Drug Intolerance 06-25-[address] [facility] (20 sources) quinones allergenic extract; Translations: [QUINONES] Drug Allergy 12-23-19 24 Hives [facility] Work Phone: (15 sources) Penicillins Drug Allergy 12-12-19 Other: See Comments [facility] (1 source) Penicillins Drug allergy (disorder) 12-13-19 [facility] Medications Current Medications Medication Drug Class(es) Dates Sig (Normalized) Sig (Original) 1 ml abatacept 125 mg/ml prefilled syringe (20 sources) Selective [employer] Cell Costimulation Modulator Start: 07-11-2020 End: 12-18-2024 Abatacept (Orencia) 125 mg/mL syringe Active 125 mg SC EVERY WEEK July 11, 2020 12:00am inject into abdomen, thigh, or outer area of arm; rotate sites acetaminophen 500 mg oral tablet (20 sources) Start: 03-11-2017 ACETAMINOPHEN 500 MG TABS (Tylenol) Take as directed ACETAMINOPHEN [id number] Micki Hurst RN Start: 04-26-2008 End: 03-17-2025 Acetaminophen 500 MG tablet Active 500 mg PO NEEDED as needed for Pain March 12, 2017 12:00am Comment on above: as necessary for richard n. use as directed acetaminophen 325 mg / HYDROcodone bitartrate 5 mg oral tablet (11 sources) Opioid Agonist Start: 05-15-2023 take 1 tablet by mouth every six hours as needed for pain Hydrocodone-Aceta minophen 5-325 mg tablet Active 1 {tbl} PO EVERY 6 HOURS NEEDED as needed for Pain 12 3 0 May 15, 2023 Fracture of right wrist Start: 05-15-2023 take 1 tablet by timo th every six hours as needed Hydrocodone-Acetaminophen Active 1 TABLE T PO EVERY 6 HOURS NEEDED 12 3 May 15, 2023 Start: 02-15-2022 End: 02-20-2022 take 1 tablet by mouth every eight hours as needed for pain HYDROcodone-acetaminophen (NORCO) 5-325 mg per tablet Indications: Postoperative pain Take 1 tablet by mouth every 8 hours as needed for pain for up to 5 days. 15 tablet 0 02/15/2022 02/20/2022 Active Comment on above: Take 1 tablet by timo th every 8 hours as needed for pain for up to 5 days. benzonatate 200 mg oral capsule (7 sources) Non-narcotic Antitussive Start: take 1 capsule by mouth three times daily as needed for cough Benzonatate 200 mg capsule Active 200 mg PO THREE TIMES A DAY as needed for cough 20 0 December 13, 2024 1:00am Start: 12-05-2024 End: 12-20-2024 take 1 capsule by mouth every eight hours as needed for cough benzonatate (TESSALON PERLE) 100 mg capsule Indications: Influenza-like illness Take 1 capsule by mouth every 8 hours as needed for cough for up to 15 days. 30 capsule 12/05/2024 12/20/2024 Active cefadroxil 500 mg oral capsule (1 source) Cephalosporin Antibacterial Start: 04-02-2022 End: 04-09-2022 take 1 capsule by mouth twice daily cefADROxil (DURICEF) 500 mg capsule Take 1 capsule by mouth twice daily for 7 days. 14 capsule 0 04/02/2022 04/09/2022 Active Comment on above: Take 1 capsule by mo [facility] twice daily for 7 days. dexamethasone 6 mg oral tablet (4 sources) Corticosteroid Start: 12-18-2024 End: 12-28-2024 take 1 tablet by mouth once daily dexAMETHasone (DECADRON) 6 mg tablet Take 1 tablet by mouth once daily for 10 days. 10 tablet 12/18/2024 12/28/2024 Active doxycycline hyclate 100 mg oral tablet (1 source) Tetracycline-class Drug Start: 04-11-2022 End: 04-18-2022 take 1 tablet by mouth twice daily doxycycline (VIBRA-TABS) 100 mg tablet Take 1 tablet by mouth twice daily for 7 days. 14 tablet 0 04/11/2022 04/18/2022 Active Comment on above: Take 1 tablet by timo twice daily for 7 days. esomeprazole 20 mg delayed release oral tablet (20 sources) Proton Pump Inhibitor Start: 03-12-2017 take 1 tablet by mouth once daily Esomeprazole Magnesium 20 MG tablet,delayed release (DR/EC) Active 20 mg PO DAILY March 12, 2017 12:00am Start: 03-11-2017 take 1 tablet by timo once daily NEXIUM 24HR 20 MG CPDR One tablet by mouth daily ESOMEPRAZOLE MAGNESIUM [id number] Shon Grossman MD Start: 02-27-2017 take 1 capsule by mouth once e someprazole magnesium (NEXIUM 24HR) 22.3 mg cpDR Take 1 capsule by mouth once daily. Per Dr. Varghese 0 02/27/2017 Active Comment on above: Take 1 capsule by mo [facility] once daily. Per Dr. Varghese estradiol 0.1 mg/ml vaginal cream (6 sources) Estrogen Start: 02-25-2025 estradiol (ESTRACE) 0.01 % (0.1 mg/gram) vaginal cream Indications: atrophic vaginitis associated with menopause Use 1g vaginally. Nightly for 2 weeks. Then every other day for 2 weeks. Then 2 times per week ongoing. 42.5 g 11 02/25/2025 Active folic acid 1 mg oral tablet (20 sources) Start: 07-12-2023 take 1 tablet by mouth once daily folic acid (Folvite) 1 MG tablet Take 2,000 mcg by mouth daily. 0 07/12/2023 Active Start: 03-12-2017 take 2 mg by mouth once daily Folic Acid Active 2 MG PO DAILY@799March 12, 2017 12:00am Start: 03-11-2017 take 2 tablets by mo [facility] once daily Folic Acid 1 MG tablet Active 2 mg PO DAILY@799March 12, 2017 12:00am Start: 03-11-2017 take 1 tablet by timo twice daily FOLIC ACID 1 MG TABS One tablet by mouth twice daily FOLIC ACID [id number] Micki Hurst RN Comment on above: Take by mouth twice daily. Not sure of mg hydroxychloroquine sulfate 200 mg oral tablet (18 sources) Antimalarial, Antirheumatic Agent Start: 2019 take 1 tablet by mouth once daily Hydroxychloroquine (Plaquenil) 200 mg tablet Active 200 mg PO DAILY July 11, 2020 12:00am leucovorin 5 mg oral tablet (20 sources) Folate Analog Start: 2021 take 3 tablets by mouth every week leucovorin (LEUCOVORIN) 5 mg tablet Take 3 Tablet(s) Oral once a week 12/09/2021 Active Start: 03-11-2017 End: 04-11-2022 take 1 tablet by mouth every week Leucovorin Calcium 15 MG tablet Active 15 mg PO Q7D March 12, 2017 12:00am Comment on above: Take by mouth. Take 3 Tablet(s) Ora l once a week levoFLOXacin 500 mg oral tablet (4 sources) Quinolone Antimicrobial Start: 12-18-19 End: 12-28-19 take 1 tablet by mouth once daily levoFLOXacin (LEVAQUIN) 500 mg tablet Take 1 tablet by mouth once daily for 10 days. 10 tablet 12/18/2024 12/28/2024 Active LORazepam 2 mg oral tablet (18 sources) Benzodiazepine Start: 01-20-20 take 1 tablet by mouth every hour Lorazepam (Ativan) 2 mg tablet Active 2 mg PO ONCE 1 0 January 19, 2019 12:00am Encounter for other preprocedural examination Take one tablet one hour prior to procedure methotrexate 2.5 mg oral tablet (20 sources) Folate Analog Metabolic Inhibitor Start: 03-11-20 17 METHOTREXATE 2.5 MG TABS One tablet by mouth as directed, 8 pills once a week METHOTREXATE SODIUM [id number] Micki Hurst RN Start: 09-05-2013 Methotrexate S odium 2.5 MG tablet Active 8 {tbl} PO Q7D September 05, 2013 12:00am Start: 09-05-2013 methotrexate 2 .5 mg tablet 6 TABLETS once each week. 12/23/2019 Active Start: 09-05-2013 take 8 tablets by [facility] every week Methotrexate Sodium Active 8 TABLET PO Q7D September 04, 2013 11:00pm Comment on above: TAKE 8 TABLETS once each week. 6 TABLETS once each week. methylPREDNISolone (2 sources) Corticosteroid Start: 04-11-2022 End: 04-17-2022 methylPREDNISolone (MEDROL, DONTRELL,) 4 mg Dose-Pack Follow dosing instructions, take with food. 1 Package 0 04/11/2022 04/17/2022 Active Start: 04-02-2022 End: 04-08-2022 methylPREDNISolone (MEDROL, DONTRELL,) 4 mg Dose-Pack Follow dosing instructions, take with food. 1 Package 0 04/02/2022 04/08/2022 Active Comment on above: Follow dosing instru ctions, take with food. Multiple Vitamins-Minerals (multivitamin with minerals) tablet (9 sources) take 1 tablet by mouth once daily Multiple Vitamins-Minerals (multivitamin with minerals) tablet Take 1 tablet by mouth daily. 0 Active Multivitamin With Folic Acid (15 sources) Start: 03-12-20 17 take 1 tablet by mouth once daily Multivitamin With Folic Acid Active 1 TABLET PO DAILY March 12, 2017 1:25pm Start: 03-12-2017 take 1 tablet by timo th once daily Multivitamin With Folic Acid Active 1 TABLET PO DAILY March 11, 2017 11:00pm Start: 03-12-2017 take 1 tablet by timo th once daily Multivitamin With Folic Acid Active 1 TABLET PO DAILY March 12, 2017 12:00am Multivitamin With Folic Acid 1 TABLET tablet (3 sources) Start: 03-12-2017 take 1 tablet by mouth once daily Multivitamin With Folic Acid 1 TABLET tablet Active 1 {tbl} PO DAILY March 12, 2017 12:00am multivits w-ca,fe,other min(ONE-A-DAY WOMENS FORMULA 27 MG-0.4 MG TAB) (20 sources) Start: 04-26-2008 multivits w-ca,fe,other min(ONE-A-DAY WOMENS FORMULA 27 MG-0.4 MG TAB) Take one(1) tablet daily. 0 04/26/2008 Active Comment on above: Take one(1) tablet d aily. naproxen 500 mg oral tablet (20 sources) Nonsteroidal Anti-inflammatory Drug Start: 03-11-2017 take 1 tablet by mouth once daily as needed for pain Naproxen 500 MG tablet Active 500 mg PO DAILY NEEDED as needed for Pain March 12, 2017 12:00am predniSONE 20 mg oral tablet (20 sources) Corticosteroid Start: 12-13-2024 take 2 tablets by mouth once daily Prednisone 20 mg tablet Active 40 mg PO DAILY 8 December 13, 2024 1:00am Start: 02-20-2023 End: 02-17-2025 predniSONE (DELTASONE) 5 mg tablet As needed, Dr. Perdomo 12/03/2023 02/17/2025 Discontinued Start: 03-11-2017 PREDNISONE 5 M G TABS 1-2 daily as needed PREDNISONE [id number] Shon Grossman MD End: 04-11-2022 take 1 tablet by mouth once daily as needed predniSONE (DELTASONE) 2.5 mg tablet Take 2.5 mg by mouth once daily as needed. 04/11/2022 Discontinued Comment on above: Take 2.5 mg by mouth once daily as needed. As needed, Dr. Camille gonzalez 0.9 ml tocilizumab 180 mg/ml prefilled syringe (14 sources) Interleukin-6 Receptor Antagonist Start: 2024 inject 0.9 mL by subcutaneous injection once tocilizumab (ACTEMRA) 162 mg/0.9 mL subcutaneous injection Inject 0.9 mL subcutaneously one time a week. Per rheum 02/17/2025 Active triamcinolone acetonide 0.25 mg/ml topical cream (13 sources) Corticosteroid Start: 2023 triamcinolone (KENALOG) 0.025 % cream Apply to affected area two times a day. 30 g 1 12/23/2023 Active Comment on above: Apply to affected ar ea two times a day. Completed/Discontinued Medications Medication Drug Class(es) Dates Sig (Normalized) Sig (Original) albuterol 0.83 mg/ml inhalation solution (5 sources) beta2-Adrenergic Agonist Start: 12-18-2024 End: 02-17-2025 albuterol (PROVENTIL) 2.5 mg /3 mL (0.083 %) nebulizer solution Indications: Persistent cough , Sinobronchitis Use 3 mL via nebulizer as directed. ADMINISTER PER WEIGHT /AGE DIRECTED 3 mL 12/18/2024 02/17/2025 Discontinued (Course of therapy completed) aspirin 81 mg delayed release oral tablet (20 sources) Nonsteroidal Anti-inflammatory Drug Start: 03-11-2017 End: 01-14-2019 take 1 tablet by mouth once daily Aspirin 81 MG tablet,delayed release (DR/EC) Discontinued 81 mg PO DAILY March 12, 2017 12:00am January 14, 2019 2:50pm calcium chloride 0.0014 meq/ml / potassium chloride 0.004 meq/ml / sodium chloride 0.103 meq/ml / sodium lactate 0.028 meq/ml injectable solution (1 source) Start: 03-09-2025 End: 03-09-2025 take 30 mL intravenously every hour 30 mL/hr, INTRAVENOUS, CONTINUOUS, Starting on Sat03/09/25 at 0800, Until Sat03/09/25 at 0906, Preprocedure clopidogrel 75 mg oral tablet (20 sources) P2Y12 Platelet Inhibitor Start: 03-12-2017 End: 01-14-2019 take 1 tablet by mouth once daily Clopidogrel 75 MG tablet Discontinued 75 mg PO DAILY March 12, 2017 12:00am January 14, 2019 2:50pm Start: 03-11-2017 take 4 tablets by mo [facility] once daily, then take 1 tablet by mouth, then take 1 tablet by mouth once daily PLAVIX 75 MG TABS 4 tablets by mouth on day one and then One tablet by mouth daily CLOPIDOGREL BISULFATE [id number] Shon Grossman MD diphenhydrAMINE (1 source) Histamine-1 Receptor Antagonist Start: 03-09-2025 End: 03-09-2025 12.5-50 mg, INTRAVENOUS, DIRECTED, Starting on Sat03/09/25 at 0830, Until Sat03/09/25 at 1229, DOSING DIRECTED BY PHYSICIAN FOR PROCEDURAL SEDATION ONLY, Intraprocedure NAPROXEN-ESOMEPRAZOLE (10 sources) Proton Pump Inhibitor, Nonsteroidal Anti-inflammatory Drug Start: 03-11-2017 End: 03-11-2017 take 1 tablet by mouth once daily VIMOVO 500-20 MG TBEC One tablet by mouth daily NAPROXEN-ESOMEPRAZO LE [id number] Shon Grossman MD Start: 03-11-2017 take 1 tablet by timo once daily VIMOVO 500-20 MG TBEC One tablet by mout h daily NAPROXEN-ESOMEPRAZOLE [id number] Micki Hurst RN 1 ml fentaNYL 0.05 mg/ml injection (1 source) Opioid Agonist Start: 03-09-2025 End: 03-09-2025 25-100 mcg, INTRAVENOUS, DIRECTED, Starting on Sat03/09/25 at 0830, Until Sat03/09/25 at 1229, DOSING DIRECTED BY PHYSICIAN FOR PROCEDURAL SEDATION ONLY, Intraprocedure gabapentin 300 mg oral capsule (1 source) Anti-epileptic Agent Start: 11-14-2017 End: 02-05-2022 take 1 capsule by mouth once daily at bedtime gabapentin (NEURONTIN) 300 mg capsule Indications: Trigeminal neuralgia Take 1 capsule by mouth daily at bedtime for 180 days. 90 capsule 11/14/2017 02/05/2022 Discontinued 5 ml midazolam 1 mg/ml injection (1 source) Benzodiazepine Start: 03-09-2025 End: 03-09-2025 1-5 mg, INTRAVENOUS, DIRECTED, Starting on Sat03/09/25 at 0830, Until Sat03/09/25 at 1229, DOSING DIRECTED BY PHYSICIAN FOR PROCEDURAL SEDATION ONLY, Intraprocedure MULTIPLE VITAMIN (5 sources) Start: 03-11-2017 take 1 tablet by mouth every twenty-four hours MULTIVITAMINS TABS One tablet by mouth daily MULTIPLE VITAMIN Shon Grossman MD mupirocin 0.02 mg/mg topical ointment (10 sources) RNA Synthetase Inhibitor Antibacterial Start: 03-11-2017 End: 03-11-2017 MUPIROCIN 2 % OINT MUPIROCIN [id number] Shon Grossman MD polyethylene glycol 3350 886989 mg / potassium chloride 2970 mg / sodium bicarbonate 6740 mg / sodium chloride 5860 mg / sodium sulfate 75745 mg powder for oral solution (3 sources) Osmotic Laxative Start: 02-22-2025 End: 02-22-2025 peg 3350-Electrolytes (GOLYTELY) 236-22.74-6.74 -5.86 gram suspension Indications: Screening for colon cancer Take 4,000 mL by mouth one time only for 1 dose. Refer to printed prep instructions from your provider. 4000 mL 02/22/2025 02/22/2025 raNITIdine 150 mg oral tablet (20 sources) Histamine-2 Receptor Antagonist Start: 03-11-2017 End: 01-14-2019 take 1 tablet by mouth twice daily Ranitidine Hcl 150 MG tablet Discontinued 150 mg PO TWICE A DAY March 12, 2017 12:00am January 14, 2019 2:50pm sulfaSALAzine 500 mg oral tablet (20 sources) Aminosalicylate Start: 03-11-2017 End: 01-14-2019 take 1 tablet by mouth twice daily Sulfasalazine 500 MG tablet Discontinued 500 mg PO TWICE A DAY March 12, 2017 12:00am January 14, 2019 2:49pm traMADol hydrochloride 50 mg oral tablet (19 sources) Opioid Agonist Start: 12-03-2023 End: 02-17-2025 take 1 tablet by mouth every eight hours as needed traMADol (ULTRAM) 50 mg tablet Take 50 mg by mouth three times a day as needed. Prescribed by Dr. Perdomo 12/03/2023 02/17/2025 Discontinued Comment on above: Take 50 mg by mouth three times a day as needed. Prescribed by Dr. Perdomo Problems Active Problems Problem Classification Problem Date Documented Da te Episodic/Chronic Abdominal pain (20 sources) Epigastric pain; Translations: [Epigastric pain] Episodic Allergic reactions (1 source) Allergic disorder of skin; Translations: [Allergic contact dermatitis, unspecified cause] 12-23-2023 Episodic Biliary tract disease (2 sources) Gallstone; Translations: [Calculus of gallbladder without cholecystitis without obstruction] Episodic Chronic obstructive pulmonary disease and bronchiectasis (4 sources) Bronchitis; Translations: [Bronchitis, not specified as acute or chronic] Onset: 5 12-21-2024 Episodic Coronary atherosclerosis and other heart disease (5 sources) Angina pectoris; Translations: [Angina pectoris, unspecified] Onset: 7 03-11-2017 Chronic E Codes: Fall (10 sources) Fall; Translations: [Unspecified fall, initial encounter] 05-15-2023 Episodic Esophageal disorders (20 sources) Gastroesophageal reflux disease without esophagitis; Translations: [Gastro-esophageal reflux disease without esophagitis] Onset: 8 06-25-2018 Chronic Essential hypertension (5 sources) Hypertensive disorder; Translations: [Essential (primary) hypertension] Onset: 7 03-11-2017 Chronic Fracture of upper limb (20 sources) Fracture at wrist and/or hand level; Translations: [Fracture of unspecified carpal bone, right wrist, initial encounter for closed fracture] Onset: 3 05-15-2023 Episodic Immunizations and screening for infectious disease (4 sources) Vaccination needed; Translations: [Encounter for immunization] Onset: 5 03-17-2024 Episodic Menopausal disorders (2 sources) Atrophic vaginitis; Translations: [Postmenopausal atrophic vaginitis] Onset: 5 02-25-2025 Chronic Other and unspecified benign neoplasm (1 source) Adenomatous polyp of colon ; Translations: [Benign neoplasm of transverse colon] 03-15-2025 Episodic Other and unspecified benign neoplasm (1 source) Benign neoplasm of transverse colon; Translations: [Adenomatous polyp of transverse colon] Onset: 5 Episodic Other connective tissue disease (2 sources) Pain in right foot; Translations: [Pain in right foot] 08-02-2023 Episodic Other gastrointestinal disorders (20 sources) Irritable bowel syndrome; Translations: [Irritable bowel syndrome without diarrhea] Onset: 5 09-22-2015 Chronic Other injuries and conditions due to external causes (10 sources) Abrasion; Translations: [Other injury of unspecified body region, initial encounter] 05-15-2023 Episodic Other liver diseases (20 sources) Steatosis of liver; Translations: [Fatty (change of) liver, not elsewhere classified] Onset: 3 Chronic Other liver diseases (1 source) Fatty (change of) liver, not elsewhere classified; Translations: [Fatty (change of) liver, not elsewhere classified] Onset: 5 Chronic Other nervous system disorders (20 sources) Complex regional pain syndrome type I of right upper limb; Translations: [Complex regional pain syndrome I of right upper limb] Onset: 3 08-08-2023 Chronic Other nervous system disorders (20 sources) Carpal tunnel syndrome of right wrist; Translations: [Carpal tunnel syndrome, right upper limb] Onset: 3 10-24-2023 Chronic Other nervous system disorders (2 sources) Complex regional pain syndrome I of right upper limb; Translations: [Complex regional pain syndrome i of right upper limb] Onset: 3 Chronic Other nervous system disorders (2 sources) Carpal tunnel syndrome, right upper limb; Translations: [Carpal tunnel syndrome, right upper limb] Onset: 3 Chronic Other non-traumatic joint disorders (2 sources) Acute ankle pain; Translations: [Pain in right ankle and joints of right foot] 08-02-2023 Episodic Other non-traumatic joint disorders (3 sources) Pain of right wrist; Translations: [Pain in right wrist] 09-10-2023 Episodic Other nutritional; endocrine; and metabolic disorders (5 sources) Body mass index (BMI) 32.0-32.9, adult; Translations: [Body mass index (BMI) 32.0-32.9, adult] Onset: 7 03-11-2017 Chronic Other nutritional; endocrine; and metabolic disorders (20 sources) Obese class I; Translations: [Obesity, unspecified] Onset: 2 02-15-2022 Chronic Other skin disorders (1 source) Folliculitis; Translations: [Follicular disorder, unspecified] Episodic Other skin disorders (1 source) Eruption; Translations: [Rash and other nonspecific skin eruption] Episodic Other upper respiratory infections (4 sources) Chronic sinusitis; Translations: [Chronic sinusitis, unspecified] Onset: 5 12-18-2024 Chronic Rheumatoid arthritis and related disease (20 sources) Rheumatoid arthritis of multiple joints; Translations: [Rheumatoid arthritis with rheumatoid factor of multiple sites without organ or systems involvement] Onset: 3 11-06-2021 Chronic Superficial injury; contusion (10 sources) Contusion of rib; Translations: [Contusion of unspecified front wall of thorax, initial encounter] 05-15-2023 Episodic Thyroid disorders (20 sources) Multinodular goiter; Translations: [Nontoxic multinodular goiter] Onset: 9 07-12-2020 Chronic Unclassified (1 source) Cough, unspecified; Translations: [Cough, unspecified] Onset: 5 Past or Other Problems Problem Classification Problem Date Documented Date Episodic/Chronic Fluid and electrolyte disorders (5 sources) Hypokalemia; Translations: [Hypokalemia] Onset: 03-11-2017 03-11-2017 Episodic Other aftercare (11 sources) Drug therapy finding; Translations: [Other jail (current) drug therapy] Onset: 06-25-2018 06-25-2018 Episodic Other circulatory disease (5 sources) Abnormal result of cardiovascular function study, unspecified; Translations: [Abnormal result of cardiovascular function study, unspecified] Onset: 03-11-2017 03-11-2017 Episodic Other connective tissue disease (11 sources) Adhesive capsulitis of right shoulder; Translations: [Adhesive capsulitis of right shoulder] Onset: 10-24-2023 08-08-2023 Episodic Other connective tissue disease (1 source) Adhesive capsulitis of right shoulder; Translations: [Adhesive capsulitis of right shoulder] Onset: 10-24-2023 Episodic Other infections; including parasitic (20 sources) Personal history of other infectious and parasitic diseases; Translations: [History of COVID-19] Onset: 11-27-2021 02-06-2023 Episodic Other lower respiratory disease (4 sources) Persistent cough; Translations: [Persistent cough] Onset: 12-24-2024 12-18-2024 Episodic Other nervous system disorders (20 sources) Trigeminal neuralgia; Translations: [Trigeminal neuralgia] Onset: 03-05-2013 02-05-2022 Episodic Other non-traumatic joint disorders (20 sources) Arthralgia of the upper arm; Translations: [Pain in unspecified elbow] Onset: 05-21-2008 07-01-2019 Episodic Other non-traumatic joint disorders (2 sources) Pain in right wrist; Translations: [Pain in right wrist] Onset: 10-24-2023 Episodic Other non-traumatic joint disorders (15 sources) Pain in upper arm; Translations: [Pain in unspecified elbow] Onset: 05-21-2008 07-01-2019 Episodic Other screening for suspected conditions (not mental disorders or infectious disease) (20 sources) Patient encounter status; Translations: [Encounter for screening for diabetes mellitus] Onset: 09-22-2015 Resolved: 11-28-2015 05-03-2017 Episodic Spondylosis; intervertebral disc disorders; other back problems (20 sources) Neck pain; Translations: [Cervicalgia] Onset: 03-05-2013 07-01-2019 Episodic Unclassified (6 sources) Patient encounter status 02-17-2025 Viral infection (11 sources) Disease caused by 2019-nCoV; Translations: [COVID-19] Onset: 11-27-2021 11-27-2021 Episodic Results Test Name Value Interpretation Reference Range Facility Absolute lymphocyte countOrd ered By: Мария Perdomo on 05-17-2025 Lymphocytes Auto (Unsp spec) [#/Vol] 3.53 10*3/uL 0.83-4.51 [facility] Absolute neutrophil countOrd ered By: Мария Perdomo on 05-17-2025 Neutrophils (Bld) [#/Vol] 1.5 10*3/uL Low 2.0-7.7 [facility] Anion gap in Serum or Plasma Ordered By: Марияcristóbal Perdomo on 05-17-2025 Anion gap [Moles/Vol] 11 mmol/L 5-15 [facility] Automated lymphocyte count a s percentage of total leukocytesOrdered By: Мария Perdomo on 05-17-2025 Lymphocytes/100 WBC Auto (Unsp spec) 60.2 % High 19-41 [facility] BUN/creatinine ratioOrdered By: Марияcristóbal Perdomo on 05-17-2025 Urea nitrogen/Creatinine [Mass ratio] 15.1 mg/mg 10-20 [facility] Basophil percentageOrdered B y: Мария Perdomo on 05-17-2025 Basophils/100 WBC (Bld) 0.9 % 0-1 [facility] Bilirubin, totalOrdered By: Мария Perdomo on 05-17-2025 Bilirubin [Mass/Vol] 0.35 mg/dL 0.00-1.30 [facility] CBC W/Diff, Automatedon Absolute Lymph 3.53 X10 3/uL Normal 0.83-4.51 [facility] Comment on above: Performed By: #### L 100.0100, L500.4050 #### [facility] [address] [place], [address] Absolute Neut 1.5 X10 3/uL Low 2.0-7.7 [facility] Comment on above: Performed By: #### L 100.0100, L500.4050 #### [facility] [address] [place], [address] Basophils/100 WBC (Bld) 0.9 % Normal 0-1 [facility] Comment on above: Performed By: #### L 100.0100, L500.4050 #### [facility] [address] [place], [address] Eosinophils/100 WBC (Bld) 5.6 % High 0-5 [facility] Comment on above: Performed By: #### L 100.0100, L500.4050 #### [facility] [address] [place], [address] Erythrocyte distribution width (RBC) [Ratio] 11.9 % Normal 11.6-14.6 [facility] Comment on above: Performed By: #### L 100.0100, L500.4050 #### [facility] [address] [place], [address] Hematocrit (Bld) [Volume fraction] 42.7 % Normal 37-47 [facility] Comment on above: Performed By: #### L 100.0100, L500.4050 #### [facility] [address] [place], [address] Hemoglobin (Bld) [Mass/Vol] 14.4 g/dL Normal 12.0-15.0 [facility] Comment on above: Performed By: #### L 100.0100, L500.4050 #### [facility] [address] [place], [address] IG% 0.200 Normal 0.0-0.9 [facility] Comment on above: Result Comment: IG% - Immature Granulocytes (promyelocytes, myelocytes and metamyelocytes) > 1% indicates that a LEFT SHIFT is Present. Performed By: #### L 100.0100, L500.4050 #### [facility] [address] [place], [address] Lymphocytes/100 WBC (Bld) 60.2 % High 19-41 [facility] Comment on above: Performed By: #### L 100.0100, L500.4050 #### [facility] [address] [place], [address] MCH (RBC) [Entitic mass] 31.4 pg Normal 27.0-32.0 [facility] Comment on above: Performed By: #### L 100.0100, L500.4050 #### [facility] [address] [place], [address] MCHC (RBC) [Mass/Vol] 33.7 g/dL Normal 32-36 [facility] Comment on above: Performed By: #### L 100.0100, L500.4050 #### [facility] [address] [place], [address] MCV (RBC) [Entitic vol] 93.2 fL Normal 81-99 [facility] Comment on above: Performed By: #### L 100.0100, L500.4050 #### [facility] [address] [place], [address] Monocytes/100 WBC (Bld) 7.7 % Normal 0-10 [facility] Comment on above: Performed By: #### L 100.0100, L500.4050 #### [facility] [address] [place], [address] Neutrophils/100 WBC (Bld) 25.4 % Low 47-70 [facility] Comment on above: Performed By: #### L 100.0100, L500.4050 #### [facility] [address] [place], [address] Nucleated RBC (Bld) [#/Vol] 0 10*3/uL Normal 0-5 [facility] Comment on above: Performed By: #### L 100.0100, L500.4050 #### [facility] [address] [place], [address] Platelet mean volume (Bld) [Entitic vol] 11.0 fL Normal 6.2-12.0 [facility] Comment on above: Performed By: #### L 100.0100, L500.4050 #### [facility] [address] [place], [address] Platelets (Bld) [#/Vol] 176 10*3/uL Normal 150-450 [facility] Comment on above: Performed By: #### L 100.0100, L500.4050 #### [facility] [address] [place], [address] RBC (Bld) [#/Vol] 4.58 10*6/uL Normal 4.2-5.4 [facility] Comment on above: Performed By: #### L 100.0100, L500.4050 #### [facility] [address] [place], [address] RDW SD 41.0 fl Normal 35.1-43.9 [facility] Comment on above: Performed By: #### L 100.0100, L500.4050 #### [facility] [address] [place], [address] WBC (Bld) [#/Vol] 5.9 10*3/uL Normal 4.4-11.[address] [facility] Comment on above: Performed By: #### L 100.0100, L500.4050 #### [facility] [address] [place], [address] Carbon dioxide, total [Moles /volume] in Central venous bloodOrdered By: Мария Perdomo on 05-17-2025 CO2 [Moles/Vol] 24.4 mmol/L 21.0-32.0 [facility] Chloride assayOrdered By: Kitty Perdomo on 05-17-2025 Chloride [Moles/Vol] 106 mmol/L 98-108 [facility] Comprehensive Metabolic Prof ilon 05-17-2025 Albumin [Mass/Vol] 4.5 g/dL Normal 3.5-5.[address] [facility] Comment on above: Performed By: #### L 100.0100, L500.4050 #### [facility] [address] [place], [address] Albumin/Globulin [Mass ratio] 1.9 {ratio} Normal 0.9-2.4 [facility] Comment on above: Performed By: #### L 100.0100, L500.4050 #### [facility] [address] [place], [address] ALK PHOS 59 U/L Normal 35-104 [facility] Comment on above: Performed By: #### L 100.0100, L500.4050 #### [facility] [address] [place], [address] ALT [Catalytic activity/Vol] 44 U/L High <=34 [facility] Comment on above: Performed By: #### L 100.0100, L500.4050 #### [facility] [address] [place], [address] AST [Catalytic activity/Vol] 32 U/L Normal <=31 [facility] Comment on above: Performed By: #### L 100.0100, L500.4050 #### [facility] [address] [place], [address] Bilirubin [Mass/Vol] 0.35 mg/dL Normal 0.00-1.30 [facility] Comment on above: Performed By: #### L 100.0100, L500.4050 #### [facility] [address] [place], [address] BUN/CRE 15.1 RATIO Normal 10-20 [facility] Comment on above: Performed By: #### L 100.0100, L500.4050 #### [facility] [address] [place], [address] Calcium [Mass/Vol] 9.2 mg/dL Normal 7.6-11.[address] [facility] Comment on above: Performed By: #### L 100.0100, L500.4050 #### [facility] [address] [place], [address] Chloride [Moles/Vol] 106 mmol/L Normal 98-108 [facility] Comment on above: Performed By: #### L 100.0100, L500.4050 #### [facility] [address] [place], [address] CO2 [Moles/Vol] 24.4 mmol/L Normal 21.0-32.0 [facility] Comment on above: Performed By: #### L 100.0100, L500.4050 #### [facility] [address] [place], [address] Creatinine [Mass/Vol] 0.88 mg/dL Normal 0.70-1.20 [facility] Comment on above: Performed By: #### L 100.0100, L500.4050 #### [facility] [address] [place], [address] GAP 11 Normal 5-15 [facility] Comment on above: Performed By: #### L 100.0100, L500.4050 #### [facility] [address] [place], [address] GFR/1.73 sq M.predicted among non-blacks MDRD (S/P/Bld) [Vol rate/Area] 77 mL/min/{1.73_m2} Normal >60 [facility] Comment on above: Result Comment: mL/m in/1.73m2 CKD-EPI Creatinine Equation (2020) Performed By: #### L 100.0100, L500.4050 #### [facility] [address] [place], [address] Globulin (S) [Mass/Vol] 2.3 g/dL Normal 2.2-4.2 [facility] Comment on above: Performed By: #### L 100.0100, L500.4050 #### [facility] [address] [place], [address] Glucose [Mass/Vol] 104 mg/dL High 70-[address] [facility] Comment on above: Performed By: #### L 100.0100, L500.4050 #### [facility] [address] [place], [address] Potassium [Moles/Vol] 4.0 mmol/L Normal 3.3-5.1 [facility] Comment on above: Performed By: #### L 100.0100, L500.4050 #### [facility] [address] [place], [address] Sodium [Moles/Vol] 141 mmol/L Normal 133-[address] [facility] Comment on above: Performed By: #### L 100.0100, L500.4050 #### [facility] [address] [place], [address] T PROT 6.8 g/dL Normal 5.9-8.4 [facility] Comment on above: Performed By: #### L 100.0100, L500.4050 #### [facility] [address] [place], [address] Urea nitrogen [Mass/Vol] 13 mg/dL Normal 4-19 [facility] Comment on above: Performed By: #### L 100.0100, L500.4050 #### [facility] [address] [place], [address] Eosinophil percentageOrdered By: Мария Perdomo on 05-17-2025 Eosinophils/100 WBC (Bld) 5.6 % High 0-5 [facility] Erythrocyte distribution wid th ratioOrdered By: Мария Perdomo on 05-17-2025 Erythrocyte distribution width (RBC) [Ratio] 11.9 % 11.6-14.6 [facility] Erythrocyte distribution wid th standard deviationOrdered By: Марияcristóbal Perdomo on 05-17-2025 Erythrocyte distribution width (RBC) [Ratio] 41.0 fl 35.1-43.9 [facility] Glomerular filtration rate ( GFR) estimation/1.73 sq m using serum, plasma, or whole bOrdered By: Мария Perdomo on 05-17-2025 GFR/1.73 sq M.predicted among non-blacks MDRD (S/P/Bld) [Vol rate/Area] 77 mL/min/{1.73_m2} >60 [facility] Comment on above: mL/min/1.73m2 CKD-EP I Creatinine Equation (2020) Hematocrit Auto (Bld) [Volum e fraction]Ordered By: Мария Perdomo on 05-17-2025 Hematocrit (Bld) [Volume fraction] 42.7 % 37-47 [facility] Hemoglobin measurementOrdere d By: Мария Perdomo on 05-17-2025 Hemoglobin (Bld) [Mass/Vol] 14.4 g/dL 12.0-15.0 [facility] Immature granulocytes/100 WB C Auto (Bld)Ordered By: Мария Perdomo on 05-17-2025 Immature granulocytes/100 WBC (Bld) 0.200 % 0.0-0.9 [facility] Comment on above: IG% - Immature Granu locytes (promyelocytes, myelocytes and metamyelocytes) > 1% indicates that a LEFT SHIFT is Present. Laboratory - Chemistry and C hemistry - challengeOrdered By: Мария Perdomo on 05-17-2025 AST [Catalytic activity/Vol] 32 U/L <32 [facility] MCV (mean corpuscular volume ) determinationOrdered By: Мария Perdomo 05-17-2025 MCV (RBC) [Entitic vol] 93.2 fL 81-99 [facility] Mean corpuscular hemoglobin (MCH) determinationOrdered By: Мария Perdomo 05-17-2025 MCH (RBC) [Entitic mass] 31.4 pg 27.0-32.0 [facility] Mean corpuscular hemoglobin concentration (MCHC) determinationOrdered By: Мария Perdomo on 05-17-2025 MCHC (RBC) [Mass/Vol] 33.7 g/dL 32-36 [facility] Mean platelet volume determi nationOrdered By: Мария Perdomo on 05-17-2025 Platelet mean volume (Bld) [Entitic vol] 11.0 fL 6.2-12.0 [facility] Monocyte percentageOrdered B y: Мария Perdomo on 05-17-2025 Monocytes/100 WBC (Bld) 7.7 % 0-10 [facility] Neutrophil percentageOrdered By: Мария Perdomo on 05-17-2025 Neutrophils/100 WBC (Bld) 25.4 % Low 47-70 [facility] Nucleated red blood cell per centageOrdered By: Мария Perdomo on 05-17-2025 Nucleated RBC/100 WBC (Bld) [Ratio] 0 % 0-5 [facility] Platelet countOrdered By: Kitty Perdomo on 05-17-2025 Platelets (Bld) [#/Vol] 176 10*3/uL 150-450 [facility] Potassium measurement (mass/ volume)Ordered By: Мария Perdomo on 05-17-2025 Potassium (Unsp spec) [Mass/Vol] 4.0 mmol/L 3.3-5.1 [facility] RBC Auto (Bld) [#/Vol]Ordere d By: Мария Perdomo on 05-17-2025 RBC (Bld) [#/Vol] 4.58 10*6/uL 4.2-5.4 [facility] Serum creatinine measurement (mass/volume)Ordered By: Мария Perdomo on 05-17-2025 Creatinine [Mass/Vol] 0.88 mg/dL 0.70-1.20 [facility] Serum globulin measurementOr dered By: Мария Perdomo on 05-17-2025 Globulin (S) [Mass/Vol] 2.3 g/dL 2.2-4.2 [facility] Serum glucose measurement (m ass/volume)Ordered By: Мария Perdomo on 05-17-2025 Glucose [Mass/Vol] 104 mg/dL High 70-[address] [facility] Serum or plasma alanine robertson otransferase (ALT) measurementOrdered By: Мария Perdomo on 05-17-2025 ALT [Catalytic activity/Vol] 44 U/L High <35 [facility] Serum or plasma albumin ron urement (mass/volume)Ordered By: Мария Perdomo on 05-17-2025 Albumin [Mass/Vol] 4.5 g/dL 3.5-5.[address] [facility] Serum or plasma albumin/glob ulin mass ratioOrdered By: Мария Perdomo on 05-17-2025 Albumin/Globulin [Mass ratio] 1.9 {ratio} 0.9-2.4 [facility] Serum or plasma alkaline cristela sphatase measurementOrdered By: Мария Perdomo on 05-17-2025 ALP [Catalytic activity/Vol] 59 U/L 35-104 [facility] Serum or plasma calcium ron urement (mass/volume)Ordered By: Мария Perdomo on 05-17-2025 Calcium [Mass/Vol] 9.2 mg/dL 7.6-11.[address] [facility] Serum or plasma urea nitroge n measurement (mass/volume)Ordered By: Мария Perdomo on 05-17-2025 Urea nitrogen [Mass/Vol] 13 mg/dL 4-19 [facility] Sodium levelOrdered By: Vira Perdomo on 05-17-2025 Sodium [Moles/Vol] 141 mmol/L 133-[address] [facility] Total proteinOrdered By: Joshua Perdomo on 05-17-2025 Protein [Mass/Vol] 6.8 g/dL 5.9-8.[address] [facility] White blood cell (WBC) count Ordered By: Мария Perdomo on 05-17-2025 WBC (Bld) [#/Vol] 5.9 10*3/uL 4.4-11.[address] [facility] Absolute lymphocyte countOrd ered By: Мария Perdomo on 03-30-2025 Lymphocytes Auto (Unsp spec) [#/Vol] 3.35 10*3/uL 0.83-4.51 [facility] Absolute neutrophil countOrd ered By: Мария Perdomo on 03-30-2025 Neutrophils (Bld) [#/Vol] 1.3 10*3/uL Low 2.0-7.7 [facility] Anion gap in Serum or Plasma Ordered By: Мария Perdomo on 03-30-2025 Anion gap [Moles/Vol] 12 mmol/L 03-25 [facility] Automated lymphocyte count a s percentage of total leukocytesOrdered By: Мария Perdomo on 03-30-2025 Lymphocytes/100 WBC Auto (Unsp spec) 61.4 % High [facility] BUN/creatinine ratioOrdered By: [facility] Conor on 03-30-2025 Urea nitrogen/Creatinine [Mass ratio] 11.1 mg/mg 08-30 [facility] Basophil percentageOrdered B y: Мария Perdomo on 03-30-2025 Basophils/100 WBC (Bld) 0.9 % 0-1 [facility] Bilirubin, totalOrdered By: Мария Perdomo on 03-30-2025 Bilirubin [Mass/Vol] 0.31 mg/dL 0.00-1.30 [facility] CBC W/Diff, Automatedon 03-12 Absolute Lymph 3.35 X10 3/uL Normal 0.83-4.51 [facility] Comment on above: Performed By: #### L 100.0100, L500.4050 #### [facility] [address] [place], [address] Absolute Neut 1.3 X10 3/uL Low 2.0-7.7 [facility] Comment on above: Performed By: #### L 100.0100, L500.4050 #### [facility] [address] [place], [address] Basophils/100 WBC (Bld) 0.9 % Normal 0-1 [facility] Comment on above: Performed By: #### L 100.0100, L500.4050 #### [facility] [address] [place], [address] Eosinophils/100 WBC (Bld) 5.7 % High 0-5 [facility] Comment on above: Performed By: #### L 100.0100, L500.4050 #### [facility] [address] [place], [address] Erythrocyte distribution width (RBC) [Ratio] 12.7 % Normal 11.6-14.6 [facility] Comment on above: Performed By: #### L 100.0100, L500.4050 #### [facility] [address] [place], [address] Hematocrit (Bld) [Volume fraction] 41.8 % Normal 37-47 [facility] Comment on above: Performed By: #### L 100.0100, L500.4050 #### [facility] [address] [place], [address] Hemoglobin (Bld) [Mass/Vol] 14.3 g/dL Normal 12.0-15.0 [facility] Comment on above: Performed By: #### L 100.0100, L500.4050 #### [facility] [address] [place], [address] IG% 0.000 Normal 0.0-0.9 [facility] Comment on above: Result Comment: IG% - Immature Granulocytes (promyelocytes, myelocytes and metamyelocytes) > 1% indicates that a LEFT SHIFT is Present. Performed By: #### L 100.0100, L500.4050 #### [facility] [address] [place], [address] Lymphocytes/100 WBC (Bld) 61.4 % High 19-41 [facility] Comment on above: Performed By: #### L 100.0100, L500.4050 #### [facility] [address] [place], [address] MCH (RBC) [Entitic mass] 32.0 pg Normal 27.0-32.0 [facility] Comment on above: Performed By: #### L 100.0100, L500.4050 #### [facility] [address] [place], [address] MCHC (RBC) [Mass/Vol] 34.2 g/dL Normal 32-36 [facility] Comment on above: Performed By: #### L 100.0100, L500.4050 #### [facility] [address] [place], [address] MCV (RBC) [Entitic vol] 93.5 fL Normal 81-99 [facility] Comment on above: Performed By: #### L 100.0100, L500.4050 #### [facility] [address] [place], [address] Monocytes/100 WBC (Bld) 7.9 % Normal 0-10 [facility] Comment on above: Performed By: #### L 100.0100, L500.4050 #### [facility] [address] [place], [address] Neutrophils/100 WBC (Bld) 24.1 % Low 47-70 [facility] Comment on above: Performed By: #### L 100.0100, L500.4050 #### [facility] [address] [place], [address] Nucleated RBC (Bld) [#/Vol] 0 10*3/uL Normal 0-5 [facility] Comment on above: Performed By: #### L 100.0100, L500.4050 #### [facility] [address] [place], [address] Platelet mean volume (Bld) [Entitic vol] 11.7 fL Normal 6.2-12.0 [facility] Comment on above: Performed By: #### L 100.0100, L500.4050 #### [facility] [address] [place], [address] Platelets (Bld) [#/Vol] 192 10*3/uL Normal 150-450 [facility] Comment on above: Performed By: #### L 100.0100, L500.4050 #### [facility] [address] [place], [address] RBC (Bld) [#/Vol] 4.47 10*6/uL Normal 4.2-5.4 [facility] Comment on above: Performed By: #### L 100.0100, L500.4050 #### [facility] [address] [place], [address] RDW SD 43.5 fl Normal 35.1-43.9 [facility] Comment on above: Performed By: #### L 100.0100, L500.4050 #### [facility] [address] [place], [address] WBC (Bld) [#/Vol] 5.5 10*3/uL Normal 4.4-11.[address] [facility] Comment on above: Performed By: #### L 100.0100, L500.4050 #### [facility] [address] [place], [address] Carbon dioxide, total [Moles /volume] in Central venous bloodOrdered By: Мария Perdomo on 03-30-2025 CO2 [Moles/Vol] 23.6 mmol/L 21.0-32.0 [facility] Chloride assayOrdered By: Kitty Perdomo on 03-30-2025 Chloride [Moles/Vol] 105 mmol/L 98-108 [facility] Comprehensive Metabolic Prof ilon 03-30-2025 Albumin [Mass/Vol] 4.5 g/dL Normal 3.5-5.[address] [facility] Comment on above: Performed By: #### L 100.0100, L500.4050 #### [facility] [address] [place], [address] Albumin/Globulin [Mass ratio] 1.9 {ratio} Normal 0.9-2.4 [facility] Comment on above: Performed By: #### L 100.0100, L500.4050 #### [facility] [address] [place], [address] ALK PHOS 64 U/L Normal 35-104 [facility] Comment on above: Performed By: #### L 100.0100, L500.4050 #### [facility] [address] [place], [address] ALT [Catalytic activity/Vol] 37 U/L High <=34 [facility] Comment on above: Performed By: #### L 100.0100, L500.4050 #### [facility] [address] [place], [address] AST [Catalytic activity/Vol] 28 U/L Normal <=31 [facility] Comment on above: Performed By: #### L 100.0100, L500.4050 #### [facility] [address] [place], [address] Bilirubin [Mass/Vol] 0.31 mg/dL Normal 0.00-1.30 [facility] Comment on above: Performed By: #### L 100.0100, L500.4050 #### [facility] [address] [place], [address] BUN/CRE 11.1 RATIO Normal 10-20 [facility] Comment on above: Performed By: #### L 100.0100, L500.4050 #### [facility] [address] [place], [address] Calcium [Mass/Vol] 9.4 mg/dL Normal 7.6-11.[address] [facility] Comment on above: Performed By: #### L 100.0100, L500.4050 #### [facility] [address] [place], [address] Chloride [Moles/Vol] 105 mmol/L Normal 98-108 [facility] Comment on above: Performed By: #### L 100.0100, L500.4050 #### [facility] [address] [place], [address] CO2 [Moles/Vol] 23.6 mmol/L Normal 21.0-32.0 [facility] Comment on above: Performed By: #### L 100.0100, L500.4050 #### [facility] [address] [place], [address] Creatinine [Mass/Vol] 0.84 mg/dL Normal 0.70-1.20 [facility] Comment on above: Performed By: #### L 100.0100, L500.4050 #### [facility] [address] [place], [address] GAP 12 Normal 5-15 [facility] Comment on above: Performed By: #### L 100.0100, L500.4050 #### [facility] [address] [place], [address] GFR/1.73 sq M.predicted among non-blacks MDRD (S/P/Bld) [Vol rate/Area] 81 mL/min/{1.73_m2} Normal >60 [facility] Comment on above: Result Comment: mL/m in/1.73m2 CKD-EPI Creatinine Equation (2020) Performed By: #### L 100.0100, L500.4050 #### [facility] [address] [place], [address] Globulin (S) [Mass/Vol] 2.3 g/dL Normal 2.2-4.2 [facility] Comment on above: Performed By: #### L 100.0100, L500.4050 #### [facility] [address] [place], [address] Glucose [Mass/Vol] 111 mg/dL High 70-[address] [facility] Comment on above: Performed By: #### L 100.0100, L500.4050 #### [facility] [address] [place], [address] Potassium [Moles/Vol] 3.7 mmol/L Normal 3.3-5.1 [facility] Comment on above: Performed By: #### L 100.0100, L500.4050 #### [facility] [address] [place], [address] Sodium [Moles/Vol] 140 mmol/L Normal 133-[address] [facility] Comment on above: Performed By: #### L 100.0100, L500.4050 #### [facility] [address] [place], [address] T PROT 6.8 g/dL Normal 5.9-8.4 [facility] Comment on above: Performed By: #### L 100.0100, L500.4050 #### [facility] [address] [place], [address] Urea nitrogen [Mass/Vol] 9 mg/dL Normal 4-19 [facility] Comment on above: Performed By: #### L 100.0100, L500.4050 #### [facility] [address] [place], [address] Eosinophil percentageOrdered By: Мария Perdomo on 03-30-2025 Eosinophils/100 WBC (Bld) 5.7 % High 0-5 [facility] Erythrocyte distribution wid th ratioOrdered By: Мария Perdomo on 03-30-2025 Erythrocyte distribution width (RBC) [Ratio] 12.7 % 11.6-14.6 [facility] Erythrocyte distribution wid th standard deviationOrdered By: Мария Perdomo on 03-30-2025 Erythrocyte distribution width (RBC) [Ratio] 43.5 fl 35.1-43.9 [facility] Glomerular filtration rate ( GFR) estimation/1.73 sq m using serum, plasma, or whole bOrdered By: Мария Perdomo on 03-30-2025 GFR/1.73 sq M.predicted among non-blacks MDRD (S/P/Bld) [Vol rate/Area] 81 mL/min/{1.73_m2} >60 [facility] Comment on above: mL/min/1.73m2 CKD-EP I Creatinine Equation (2020) Hematocrit Auto (Bld) [Volum e fraction]Ordered By: Мария Perdomo on 03-30-2025 Hematocrit (Bld) [Volume fraction] 41.8 % 37-47 [facility] Hemoglobin measurementOrdere d By: Мария Perdomo on 03-30-2025 Hemoglobin (Bld) [Mass/Vol] 14.3 g/dL 12.0-15.0 [facility] Immature granulocytes/100 WB C Auto (Bld)Ordered By: Мария Perdomo on 03-30-2025 Immature granulocytes/100 WBC (Bld) 0.000 % 0.0-0.9 [facility] Comment on above: IG% - Immature Granu locytes (promyelocytes, myelocytes and metamyelocytes) > 1% indicates that a LEFT SHIFT is Present. Laboratory - Chemistry and C hemistry - challengeOrdered By: Мария Perdomo on 03-30-2025 AST [Catalytic activity/Vol] 28 U/L <32 [facility] MCV (mean corpuscular volume ) determinationOrdered By: Мария Perdomo on 03-30-2025 MCV (RBC) [Entitic vol] 93.5 fL 81-99 [facility] Mean corpuscular hemoglobin (MCH) determinationOrdered By: Мария Perdomo on 03-30-2025 MCH (RBC) [Entitic mass] 32.0 pg 27.0-32.0 [facility] Mean corpuscular hemoglobin concentration (MCHC) determinationOrdered By: Мария Perdomo on 03-30-2025 MCHC (RBC) [Mass/Vol] 34.2 g/dL 32-36 [facility] Mean platelet volume determi nationOrdered By: Мария Perdomo on 03-30-2025 Platelet mean volume (Bld) [Entitic vol] 11.7 fL 6.2-12.0 [facility] Monocyte percentageOrdered B y: Мария Perdomo on 03-30-2025 Monocytes/100 WBC (Bld) 7.9 % 0-10 [facility] Neutrophil percentageOrdered By: Мария Perdomo on 03-30-2025 Neutrophils/100 WBC (Bld) 24.1 % Low 47-70 [facility] Nucleated red blood cell per centageOrdered By: Мария Perdomo on 03-30-2025 Nucleated RBC/100 WBC (Bld) [Ratio] 0 % 0-5 [facility] Platelet countOrdered By: Kitty Perdomo on 03-30-2025 Platelets (Bld) [#/Vol] 192 10*3/uL 150-450 [facility] Potassium measurement (mass/ volume)Ordered By: Мария Perdomo on 03-30-2025 Potassium (Unsp spec) [Mass/Vol] 3.7 mmol/L 3.3-5.1 [facility] RBC Auto (Bld) [#/Vol]Ordere d By: Мария Perdomo on 03-30-2025 RBC (Bld) [#/Vol] 4.47 10*6/uL 4.2-5.4 [facility] Serum creatinine measurement (mass/volume)Ordered By: Мария Perdomo on 03-30-2025 Creatinine [Mass/Vol] 0.84 mg/dL 0.70-1.20 [facility] Serum globulin measurementOr dered By: Мария Perdomo on 03-30-2025 Globulin (S) [Mass/Vol] 2.3 g/dL 2.2-4.2 [facility] Serum glucose measurement (m ass/volume)Ordered By: Мария Perdomo on 03-30-2025 Glucose [Mass/Vol] 111 mg/dL High 70-[address] [facility] Serum or plasma alanine robertson otransferase (ALT) measurementOrdered By: Мария Perdomo on 03-30-2025 ALT [Catalytic activity/Vol] 37 U/L High <35 [facility] Serum or plasma albumin ron urement (mass/volume)Ordered By: Мария Perdomo on 03-30-2025 Albumin [Mass/Vol] 4.5 g/dL 3.5-5.[address] [facility] Serum or plasma albumin/glob ulin mass ratioOrdered By: Мария Perdomo on 03-30-2025 Albumin/Globulin [Mass ratio] 1.9 {ratio} 0.9-2.4 [facility] Serum or plasma alkaline cristela sphatase measurementOrdered By: Мария Perdomo on 03-30-2025 ALP [Catalytic activity/Vol] 64 U/L 35-104 [facility] Serum or plasma calcium ron urement (mass/volume)Ordered By: Мария Perdomo on 03-30-2025 Calcium [Mass/Vol] 9.4 mg/dL 7.6-11.[address] [facility] Serum or plasma urea nitroge n measurement (mass/volume)Ordered By: Мария Perdomo on 03-30-2025 Urea nitrogen [Mass/Vol] 9 mg/dL 4-19 [facility] Sodium levelOrdered By: Vira Perdomo on 03-30-2025 Sodium [Moles/Vol] 140 mmol/L 133-[address] [facility] Total proteinOrdered By: Joshua Perdomo on 03-30-2025 Protein [Mass/Vol] 6.8 g/dL 5.9-8.[address] [facility] White blood cell (WBC) count Ordered By: Мария Perdomo on 03-30-2025 WBC (Bld) [#/Vol] 5.5 10*3/uL 4.4-11.[address] [facility] CBC W/Diff, Automatedon 03-11 Absolute Neut Normal 2.0-7.7 [facility] Comment on above: Result Comment: JASWANT ENT WILL COME BACK TOMORROW WHEN SHE IS BETTER HYDRATED Performed By: #### L 100.0100, L500.4050 #### [facility] [address] [place], [place], [address] HCT Normal 37-47 [facility] Comment on above: Result Comment: JASWANT ENT WILL COME BACK TOMORROW WHEN SHE IS BETTER HYDRATED Performed By: #### L 100.0100, L500.4050 #### [facility] [address] [place], [address] HGB Normal 12.0-15.0 [facility] Comment on above: Result Comment: JASWANT ENT WILL COME BACK TOMORROW WHEN SHE IS BETTER HYDRATED Performed By: #### L 100.0100, L500.4050 #### [facility] [address] [place], [address] MCH Normal 27.0-32.0 [facility] Comment on above: Result Comment: JASWANT ENT WILL COME BACK TOMORROW WHEN SHE IS BETTER HYDRATED Performed By: #### L 100.0100, L500.4050 #### [facility] [address] [place], [address] MCHC Normal 32-36 [facility] Comment on above: Result Comment: JASWANT ENT WILL COME BACK TOMORROW WHEN SHE IS BETTER HYDRATED Performed By: #### L 100.0100, L500.4050 #### [facility] [address] [place], [address] MCV Normal 81-99 [facility] Comment on above: Result Comment: JASWANT ENT WILL COME BACK TOMORROW WHEN SHE IS BETTER HYDRATED Performed By: #### L 100.0100, L500.4050 #### [facility] [address] [place], [address] NEUT% Normal 47-70 [facility] Comment on above: Result Comment: JASWANT ENT WILL COME BACK TOMORROW WHEN SHE IS BETTER HYDRATED Performed By: #### L 100.0100, L500.4050 #### [facility] [address] [place], [address] PLT Normal 150-450 [facility] Comment on above: Result Comment: JASWANT ENT WILL COME BACK TOMORROW WHEN SHE IS BETTER HYDRATED Performed By: #### L 100.0100, L500.4050 #### [facility] [address] [place], [address] RBC Normal 4.2-5.4 [facility] Comment on above: Result Comment: JASWANT ENT WILL COME BACK TOMORROW WHEN SHE IS BETTER HYDRATED Performed By: #### L 100.0100, L500.4050 #### [facility] [address] [place], [address] RDW CV Normal 11.6-14.6 [facility] Comment on above: Result Comment: JASWANT ENT WILL COME BACK TOMORROW WHEN SHE IS BETTER HYDRATED Performed By: #### L 100.0100, L500.4050 #### [facility] [address] [place], [address] RDW SD Normal 35.1-43.9 [facility] Comment on above: Result Comment: JASWANT ENT WILL COME BACK TOMORROW WHEN SHE IS BETTER HYDRATED Performed By: #### L 100.0100, L500.4050 #### [facility] [address] [place], [address] WBC Normal 4.4-11.0 [facility] Comment on above: Result Comment: JASWANT ENT WILL COME BACK TOMORROW WHEN SHE IS BETTER HYDRATED Performed By: #### L 100.0100, L500.4050 #### [facility] [address] [place], [address] Comprehensive Metabolic Prof ilon 03-29-2025 ALB Normal 3.5-5.0 [facility] Comment on above: Order Comment: PATIE NT WILL COME BACK TOMORROW WHEN HYDRATED Result Comment: JASWANT ENT WILL COME BACK TOMORROW WHEN SHE IS BETTER HYDRATED Performed By: #### L 100.0100, L500.4050 #### [facility] [address] [place], [address] ALK PHOS Normal 35-104 [facility] Comment on above: Order Comment: PATIE NT WILL COME BACK TOMORROW WHEN HYDRATED Result Comment: JASWANT ENT WILL COME BACK TOMORROW WHEN SHE IS BETTER HYDRATED Performed By: #### L 100.0100, L500.4050 #### [facility] [address] [place], [address] ALT Normal <=34 [facility] Comment on above: Order Comment: PATIE NT WILL COME BACK TOMORROW WHEN HYDRATED Result Comment: JASWANT ENT WILL COME BACK TOMORROW WHEN SHE IS BETTER HYDRATED Performed By: #### L 100.0100, L500.4050 #### [facility] [address] [place], [address] AST Normal <=31 [facility] Comment on above: Order Comment: PATIE NT WILL COME BACK TOMORROW WHEN HYDRATED Result Comment: JASWANT ENT WILL COME BACK TOMORROW WHEN SHE IS BETTER HYDRATED Performed By: #### L 100.0100, L500.4050 #### [facility] [address] [place], [address] BUN Normal 4-19 [facility] Comment on above: Order Comment: PATIE NT WILL COME BACK TOMORROW WHEN HYDRATED Result Comment: JASWANT ENT WILL COME BACK TOMORROW WHEN SHE IS BETTER HYDRATED Performed By: #### L 100.0100, L500.4050 #### [facility] [address] [place], [address] BUN/CRE Normal 10-20 [facility] Comment on above: Order Comment: PATIE NT WILL COME BACK TOMORROW WHEN HYDRATED Result Comment: JASWANT ENT WILL COME BACK TOMORROW WHEN SHE IS BETTER HYDRATED Performed By: #### L 100.0100, L500.4050 #### [facility] [address] [place], [address] Calcium Normal 7.6-11.0 [facility] Comment on above: Order Comment: PATIE NT WILL COME BACK TOMORROW WHEN HYDRATED Result Comment: JASWANT ENT WILL COME BACK TOMORROW WHEN SHE IS BETTER HYDRATED Performed By: #### L 100.0100, L500.4050 #### [facility] [address] [place], [address] CL Normal 98-108 [facility] Comment on above: Order Comment: PATIE NT WILL COME BACK TOMORROW WHEN HYDRATED Result Comment: JASWANT ENT WILL COME BACK TOMORROW WHEN SHE IS BETTER HYDRATED Performed By: #### L 100.0100, L500.4050 #### [facility] [address] [place], [address] CO2 Normal 21.0-32.0 [facility] Comment on above: Order Comment: PATIE NT WILL COME BACK TOMORROW WHEN HYDRATED Result Comment: JASWANT ENT WILL COME BACK TOMORROW WHEN SHE IS BETTER HYDRATED Performed By: #### L 100.0100, L500.4050 #### [facility] [address] [place], [address] CREAT,SERUM Normal 0.70-1.20 [facility] Comment on above: Order Comment: PATIE NT WILL COME BACK TOMORROW WHEN HYDRATED Result Comment: JASWANT ENT WILL COME BACK TOMORROW WHEN SHE IS BETTER HYDRATED Performed By: #### L 100.0100, L500.4050 #### [facility] [address] [place], [address] eGFR Normal >60 [facility] Comment on above: Order Comment: PATIE NT WILL COME BACK TOMORROW WHEN HYDRATED Result Comment: JASWANT ENT WILL COME BACK TOMORROW WHEN SHE IS BETTER HYDRATED Performed By: #### L 100.0100, L500.4050 #### [facility] [address] [place], [address] GAP Normal 5-15 [facility] Comment on above: Order Comment: PATIE NT WILL COME BACK TOMORROW WHEN HYDRATED Result Comment: JASWANT ENT WILL COME BACK TOMORROW WHEN SHE IS BETTER HYDRATED Performed By: #### L 100.0100, L500.4050 #### [facility] [address] [place], [address] GLU Normal 70-99 [facility] Comment on above: Order Comment: PATIE NT WILL COME BACK TOMORROW WHEN HYDRATED Result Comment: JASWANT ENT WILL COME BACK TOMORROW WHEN SHE IS BETTER HYDRATED Performed By: #### L 100.0100, L500.4050 #### [facility] [address] [place], [address] Potassium Normal 3.3-5.1 [facility] Comment on above: Order Comment: PATIE NT WILL COME BACK TOMORROW WHEN HYDRATED Result Comment: JASWANT ENT WILL COME BACK TOMORROW WHEN SHE IS BETTER HYDRATED Performed By: #### L 100.0100, L500.4050 #### [facility] [address] [place], [address] T BILI Normal 0.00-1.30 [facility] Comment on above: Order Comment: PATIE NT WILL COME BACK TOMORROW WHEN HYDRATED Result Comment: JASWANT ENT WILL COME BACK TOMORROW WHEN SHE IS BETTER HYDRATED Performed By: #### L 100.0100, L500.4050 #### [facility] [address] [place], [address] T PROT Normal 5.9-8.4 [facility] Comment on above: Order Comment: PATIE NT WILL COME BACK TOMORROW WHEN HYDRATED Result Comment: JASWANT ENT WILL COME BACK TOMORROW WHEN SHE IS BETTER HYDRATED Performed By: #### L 100.0100, L500.4050 #### [facility] [address] [place], [address] Comprehensive Metabolic Profil Normal 133-145 [facility] Comment on above: Order Comment: PATIE NT WILL COME BACK TOMORROW WHEN HYDRATED Result Comment: JASWANT ENT WILL COME BACK TOMORROW WHEN SHE IS BETTER HYDRATED Performed By: #### L 100.0100, L500.4050 #### [facility] [address] [place], [address] CNOVon 03-17-2025 CNOV Office Visit (GENSWS ) EMILIA HENSLEY ([id number]) 1965 F Date Time Provider Department 03/17/25 9:00 AM VALE MACIAS During your visit today, we recorded the following information about you: Vale Macias APRN.CNP 03/17/2025 9:11 AM Signed FOLLOW UP VISIT - ENDOSCOPY Emilia Hensley 1965 [id number] REFERRING PHYSICIAN: No referring provider defined for this encounter. Emilia Hensley is a patient I am following for screening colonoscopy. Dr. Orr performed lower endoscopy on 03/09/25. The patient was found to have Impression: - Non-bleeding internal hemorrhoids. - One 3 to 5 mm polyp in the proximal transverse colon, removed with a cold snare. Resected and retrieved. Clip (MR conditional) was placed. Clip electronic tech: Nodeable. Pathology demonstrated: FINAL DIAGNOSIS A. Colon, transverse, polyp, polypectomy: -Fragments of tubular adenoma. The patient notes no complaints since the procedure. VITALS: There were no vitals taken for this visit. General: patient is alert, cooperative, pleasant and in no acute distress Assessment ASSESSMENT/PLAN: 1. Adenomatous polyp of transverse colon - ICD9: 211.3, ICD10: D12.3 The operative findings and pathology report were reviewed with the patient, and the patient has had the opportunity to ask questions and have questions answered. If the patient notes any problems or changes in bowel function, the patient should contact me immediately. Otherwise I recommend follow up endoscopy in 5 years. HM updated. Discussed treatment plan and patient voices understanding. Patient's questions answered appropriately. Medications and potential side effects were discussed and patient voices understanding. Return to the office as scheduled or as needed for worsening/no improvement. Vale Macias APRN.CNP Allergies As of Date: 03/17/2025 Noted Allergy Reaction QUINONES 12/23/2023 4 - Hives PENICILLINS 12/12/2005 14 - Other: See Comments Comments: Rash and swelling ADHESIVE TAPE-SILICONES 02/26/2022 2 - Rash PNEUMOVAX 23 (PNEUMOCOCCAL 23-MATI*06/25/2018 14 - Other: See Comments Comments: Back headache, Arm pain for 5 days Date Reviewed: 03/17/2025 Reviewed by: Vale Macias APRN.[employer] - Fully Assessed Reason for Visit: Follow Up [171] Cmt: Colonoscopy Primary Visit Diagnosis:Adenomatous polyp of transverse colon [D12.3] Prescriptions as of 03/17/2025 - estradiol (ESTRACE) 0.01 % (0.1 mg/gram) vaginal cream Use 1g vaginally. Nightly for 2 weeks. Then every other day for 2 weeks. Then 2 times per week ongoing. - tocilizumab (ACTEMRA) 162 mg/0.9 mL subcutaneous injection Inject 0.9 mL subcutaneously one time a week. Per rheum - leucovorin (LEUCOVORIN) 5 mg tablet Take 3 Tablet(s) Oral once a week - methotrexate 2.5 mg tablet 6 TABLETS once each week. - esomeprazole magnesium (NEXIUM 24HR) 22.3 mg cpDR Take 1 capsule by mouth once daily. Per Dr. Varghese - FOLIC ACID ORAL Take by mouth twice daily. Not sure of mg - multivits w-ca,fe,other min(ONE-A-DAY WOMENS FORMULA 27 MG-0.4 MG TAB) Take one(1) tablet daily. Problem List As Of Date 03/17/2025 Noted Resolved Routine general medical examination at a [facility]*04/26/2008 11/28/2015 PAIN JOINT, ELBOW [M25.529] 05/21/2008 Rheumatoid arthritis involving multiple sites w*01/23/2013 Trigeminal neuralgia [G50.0] 03/05/2013 Neck pain [M54.2] 03/05/2013 IBS (irritable bowel syndrome) [K58.9] 09/22/2015 Visit for routine cigarette package examiner exam [Z01.419] 09/22/2015 11/28/2015 Well adult exam [Z00.00] 09/22/2015 11/28/2015 Need for lipid screening [Z13.220] 09/22/2015 11/28/2015 Screening for diabetes mellitus (DM) [Z13.1] 09/22/2015 11/28/2015 Encounter for screening for diabetes mellitus [*05/03/2017 Well adult exam [Z00.00] 11/14/2017 Encounter for screening mammogram for breast ca*06/25/2018 GERD without esophagitis [K21.9] 06/25/2018 Medication management [Z79.899] 06/25/2018 Screening for colon cancer [Z12.11] 12/31/2018 Multiple thyroid nodules [E04.2] 01/06/2019 History of COVID-19 [Z86.16] 11/27/2021 Obesity, Class I, BMI 30-34.9 [E66.811] 02/15/2022 Fatty liver [K76.0] 01/07/2023 Complex regional pain syndrome type 1 of right *02/13/2024 Closed fracture of distal end of right radius w*02/13/2024 Carpal tunnel syndrome, right [G56.01] 02/13/2024 Encounter for lipid screening for cardiovascula*02/13/20 24 Medications Discontinued During This Encounter Prescriptions - acetaminophen(TYLENOL EXTRA STRENGTH 500 MG TAB) (Discontinued) Reported on 03/17/2025 Encounter Status:Closed by VALE MACIAS on 03/17/25 Normal [facility] ABD Limited w/ Elastographyo n 03-12-2025 ABD Limited w/ Elastography [facility] [address] [place] [address] [id number] ABD Limited w/ Elastography MR#: [id number] Acct: [id number] Name: EMILIA HENSLEY Rep #: [id number] : 1965 F 59 From: Gage Avalos MD PCP: Dr. Herman Murray MD Status: REG CLI Study: ABD Limited w/ Elastography Date of Exam: 01/05 Exam# [id number] Ordering Dr: Herman Murray MD PROCEDURE: ABD LIMITED W/ ELASTOGRAPHY, 03/12/2025 REASON FOR EXAM: FATTY LIVER COMPARISON: 12/10/2022 TECHNIQUE: Grayscale and color Doppler imaging of the right upper quadrant was performed. Elastography was performed for non-invasive assessment of liver tissue stiffness utilizing a [employer] S-shear wave imaging unit. FINDINGS: Exam reportedly limited by patient condition as reportedly the patient is sensitive to touch. Liver: Echogenic. 13.0 cm in length. Gallbladder: Cholecystectomy. Biliary tree: Unremarkable. CBD measures 3 mm. Pancreas: Partially obscured by shadowing bowel gas, grossly unremarkable as visualized. Right kidney: Unremarkable. 9.7 cm in length. Other: No visualized free fluid. Hepatic elastography: Number of measurements: 15 measurements across 3 regions, 5 measurements per region. US probe: CA1-7A. EQI median: 7.2 kPa EQI median velocity: 1.5 m/s IQR/Med: 14.9-25.7% (kPa) and 7.5-12.4% (m/s). If the IQR/Med is IQR/median >30% (for kPa) or >15% in m/s, the variance in the measurements is a large and the accuracy of the measurement may be in question. US/ABD Limited w/ Elastography IMPRESSION: 1. Appearance of the liver most commonly suggestive of hepatic steatosis. Correlate for clinical and laboratory evidence of chronic liver disease. 2. Liver stiffness is 7.2 kPa. Per the below 2020 SRU criteria, this rules out compensated advanced chronic liver disease in the absence of other known clinical signs. If there are known clinical signs, further testing may be needed for confirmation. 3. Cholecystectomy without biliary dilatation. 4. Additional description as above. Assessment is per the Update to the SRU Liver Elastography Consensus Statement (2020) Note that the above assessment of liver fibrosis is vendor-neutral and intended for use in fibrosis related to viral etiologies and non-alcoholic fatty-liver disease (NAFLD); in causes other than viral hepatitis and NAFLD, the cutoff values are currently not well established. In some patients with NAFLD, the cutoff values for cACLD may be lower (7-9 kPa). Note also that in the setting of elevated LFTs, nonfasting or vascular congestion, the stage of lifer fibrosis may be overestimated. Previous SRU reference values: <1.37 m/s (5.7kPa): No to mild fibrosis 1.37 m/s - 2.2 m/s: Moderate to severe fibrosis >2.2 m/s (15kPa): Significant fibrosis / cirrhosis Reading Location: [id number] CC: Dr. Herman Murray MD Trampoline Team Coach: [facility]igned [facility] EMILIA HENSLEY ([id number]) 1965 F Date Time Provider Department 03/12/25 [facility] During your visit today, we recorded the following information about you: Basilio Parks LPN 03/12/2025 11:26 AM Signed Received results of pt's Elastography done at [facility] and ordered by PCP. Basilio Parks LPN Scan on 03/12/2025 10:39 AM by Provider, External, PAIsabelC: Ultrasound Herman Murray MD 03/12/2025 12:55 PM Signed Let patient know the UA showed normal to minimal scaring. Tx at this time will continue to be good lipid control and working on weight loss. We we also continue to monitor her labs. Analilia Diaz MA 03/12/2025 1:21 PM Signed Patient notified and voiced understanding. Analilia Diaz MA Allergies As of Date: 03/12/2025 Noted Allergy Reaction QUINONES 12/23/2023 4 - Hives PENICILLINS 12/12/2005 14 - Other: See Comments Comments: Rash and swelling ADHESIVE TAPE-SILICONES 02/26/2022 2 - Rash PNEUMOVAX 23 (PNEUMOCOCCAL 23-MATI*06/25/2018 14 - Other: See Comments Comments: Back headache, Arm pain for 5 days Date Reviewed: 03/09/2025 Reviewed by: Ada Lynch, HYUN - Fully Assessed Reason for Visit: Results [95] Primary Visit Diagnosis:Fatty liver [K76.0] Prescriptions as of 03/12/2025 - estradiol (ESTRACE) 0.01 % (0.1 mg/gram) vaginal cream Use 1g vaginally. Nightly for 2 weeks. Then every other day for 2 weeks. Then 2 times per week ongoing. - tocilizumab (ACTEMRA) 162 mg/0.9 mL subcutaneous injection Inject 0.9 mL subcutaneously one time a week. Per rheum - leucovorin (LEUCOVORIN) 5 mg tablet Take 3 Tablet(s) Oral once a week - methotrexate 2.5 mg tablet 6 TABLETS once each week. - esomeprazole magnesium (NEXIUM 24HR) 22.3 mg cpDR Take 1 capsule by mouth once daily. Per Dr. Varghese - FOLIC ACID ORAL Take by mouth twice daily. Not sure of mg - multivits w-ca,fe,other min(ONE-A-DAY WOMENS FORMULA 27 MG-0.4 MG TAB) Take one(1) tablet daily. - acetaminophen(TYLENOL EXTRA STRENGTH 500 MG TAB) as necessary for pain. use as directed Problem List As Of Date 03/12/2025 Noted Resolved Routine general medical examination at a [facility]*04/26/2008 11/28/2015 PAIN JOINT, ELBOW [M25.529] 05/21/2008 Rheumatoid arthritis involving multiple sites w*01/23/2013 Trigeminal neuralgia [G50.0] 03/05/2013 Neck pain [M54.2] 03/05/2013 IBS (irritable bowel syndrome) [K58.9] 09/22/2015 Visit for routine cigarette package examiner exam [Z01.419] 09/22/2015 11/28/2015 Well adult exam [Z00.00] 09/22/2015 11/28/2015 Need for lipid screening [Z13.220] 09/22/2015 11/28/2015 Screening for diabetes mellitus (DM) [Z13.1] 09/22/2015 11/28/2015 Encounter for screening for diabetes mellitus [*05/03/2017 Well adult exam [Z00.00] 11/14/2017 Encounter for screening mammogram for breast ca*06/25/2018 GERD without esophagitis [K21.9] 06/25/2018 Medication management [Z79.899] 06/25/2018 Screening for colon cancer [Z12.11] 12/31/2018 Multiple thyroid nodules [E04.2] 01/06/2019 History of COVID-19 [Z86.16] 11/27/2021 Obesity, Class I, BMI 30-34.9 [E66.811] 02/15/2022 Fatty liver [K76.0] 01/07/2023 Complex regional pain syndrome type 1 of right *02/13/2024 Closed fracture of distal end of right radius w*02/13/2024 Carpal tunnel syndrome, right [G56.01] 02/13/2024 Encounter for lipid screening for cardiovascula*02/13/20 24 Encounter Status:Closed by ANALILIA DIAZ on 03/12/25 Normal [facility] [id number] 03-09-2025 [id number] HNO ID: [id number] Author: ADA LYNCH RN Service: ? Author Type: Registered Nurse Type: [id number] Filed: 03/09/2025 09:16 Note Text: The patient received a copy of Colonoscopy discharge instructions that contain information for how to contact the physician who performed the procedure and when to seek medical care. 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 Last Colonoscopy: 2012. Referring Physician: Vale Macias (Referring ) Medicines: Midazolam 7 mg IV, Fentanyl 200 micrograms IV, Diphenhydramine 50 mg IV Complications: No immediate complications. Requesting Provider: Procedure: Pre-Anesthesia Assessment: - Prior to the procedure, a History and Physical was performed, and patient medications and allergies were reviewed. The patient is competent. The risks and benefits of the procedure and the sedation options and risks were discussed with the patient. All questions were answered and informed consent was obtained. Patient identification and proposed procedure were verified by the physician in the pre-procedure area. Mental Status Examination: alert and oriented. Airway Examination: normal oropharyngeal airway and neck mobility. Respiratory Examination: clear to auscultation. CV Examination: normal. Prophylactic Antibiotics: The patient does not require prophylactic antibiotics. Prior Anticoagulants: The patient has taken no anticoagulant or antiplatelet agents. ASA Grade Assessment: II - A patient with mild systemic disease. After reviewing the risks and benefits, the patient was deemed in satisfactory condition to undergo the procedure. The anesthesia plan was to use moderate sedation / analgesia (conscious sedation). Immediately prior to administration of medications, the patient was re-assessed for adequacy to receive sedatives. The heart rate, respiratory rate, oxygen saturations, blood pressure, adequacy of pulmonary ventilation, and response to care were monitored throughout the procedure. The physical status of the patient was re-assessed after the procedure. After I obtained informed consent, the scope was passed under direct vision. Throughout the procedure, the patient's blood pressure, pulse, and oxygen saturations were monitored continuously. The Colonoscope was introduced through the anus and advanced to the cecum, identified by the appendiceal orifice, ileocecal valve and palpation. The colonoscopy was performed without difficulty. The patient tolerated the procedure. The quality of the bowel preparation was adequate to identify polyps greater than 5 mm in size. The appendiceal orifice and the rectum were photographed. Moderate Sedation: The administration of moderate sedation was initiated at 08:29. Moderate (conscious) sedation was personally administered by the endoscopist. The following parameters were monitored: oxygen saturation, heart rate, blood pressure, respiratory rate, EKG, adequacy of pulmonary ventilation, and response to care. Total physician intraservice time was 27 minutes. Findings: The perianal and digital rectal examinations were normal. Pertinent negatives include normal sphincter tone. Non-bleeding internal hemorrhoids were found. A 3 to 5 mm polyp was found in the proximal transverse colon. The polyp was sessile. The polyp was removed with a cold snare. Resection and retrieval were complete. Verification of patient identification for the specimen was done by the nurse. To prevent bleeding after the polypectomy, one hemostatic clip was successfully placed (MR conditional). Clip electronic tech: Nodeable. There was no bleeding at the end of the procedure. Estimated blood loss was minimal. Impression: - Non-bleeding internal hemorrhoids. - One 3 to 5 mm polyp in the proximal transverse colon, removed with a cold snare. Resected and retrieved. Clip (MR conditional) was placed. Clip electronic tech: Nodeable. Recommendation: - Repeat colonoscopy date to be determined after pending pathology results are reviewed for surveillance based on pathology results. - - Follow up with Catie Macias NP, - may be via televisit for discussion of pathology results and determination of timing of future endoscopies - Patient has a contact number available for emergencies. The signs and symptoms of potential delayed complications were discussed with the patient. Return to normal activities tomorrow. Written discharge instructions were provided to the patient. - Continue present medications. - Resume previous diet. Procedure Code(s): --- Professional --- 51519, Colonoscopy, flexible; with removal of tumor(s), polyp(s), or other lesion(s) by snare technique 33391, 59, Moderate sedation services provided by the same physician or other qualified health animal care attendant performing the diagnostic (more content not included)... 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 Last Colonoscopy: 2012. Referring Physician: Vale Macias (Referring MD) Medicines: Midazolam 7 mg IV, Fentanyl 200 micrograms IV, Diphenhydramine 50 mg IV Complications: No immediate complications. Requesting Provider: Procedure: Pre-Anesthesia Assessment: - Prior to the procedure, a History and Physical was performed, and patient medications and allergies were reviewed. The patient is competent. The risks and benefits of the procedure and the sedation options and risks were discussed with the patient. All questions were answered and informed consent was obtained. Patient identification and proposed procedure were verified by the physician in the pre-procedure area. Mental Status Examination: alert and oriented. Airway Examination: normal oropharyngeal airway and neck mobility. Respiratory Examination: clear to auscultation. CV Examination: normal. Prophylactic Antibiotics: The patient does not require prophylactic antibiotics. Prior Anticoagulants: The patient has taken no anticoagulant or antiplatelet agents. ASA Grade Assessment: II - A patient with mild systemic disease. After reviewing the risks and benefits, the patient was deemed in satisfactory condition to undergo the procedure. The anesthesia plan was to use moderate sedation / analgesia (conscious sedation). Immediately prior to administration of medications, the patient was re-assessed for adequacy to receive sedatives. The heart rate, respiratory rate, oxygen saturations, blood pressure, adequacy of pulmonary ventilation, and response to care were monitored throughout the procedure. The physical status of the patient was re-assessed after the procedure. After I obtained informed consent, the scope was passed under direct vision. Throughout the procedure, the patient's blood pressure, pulse, and oxygen saturations were monitored continuously. The Colonoscope was introduced through the anus and advanced to the cecum, identified by the appendiceal orifice, ileocecal valve and palpation. The colonoscopy was performed without difficulty. The patient tolerated the procedure. The quality of the bowel preparation was adequate to identify polyps greater than 5 mm in size. The appendiceal orifice and the rectum were photographed. Moderate Sedation: The administration of moderate sedation was initiated at 08:29. Moderate (conscious) sedation was personally administered by the endoscopist. The following parameters were monitored: oxygen saturation, heart rate, blood pressure, respiratory rate, EKG, adequacy of pulmonary ventilation, and response to care. Total physician intraservice time was 27 minutes. Findings: The perianal and digital rectal examinations were normal. Pertinent negatives include normal sphincter tone. Non-bleeding internal hemorrhoids were found. A 3 to 5 mm polyp was found in the proximal transverse colon. The polyp was sessile. The polyp was removed with a cold snare. Resection and retrieval were complete. Verification of patient identification for the specimen was done by the nurse. To prevent bleeding after the polypectomy, one hemostatic clip was successfully placed (MR conditional). Clip electronic tech: Nodeable. There was no bleeding at the end of the procedure. Estimated blood loss was minimal. Impression: - Non-bleeding internal hemorrhoids. - On (more content not included)... PROVATION [facility] Rad[facility] HISTORY PHYSICALon HISTORY PHYSICAL HNO ID: [id number] Author: DANIELLE ORR MD Service: General Surgery Author Type: Physician Type: H&P Filed: 03/09/2025 07:22 Note Text: HISTORY AND PHYSICAL Emilia Hensley : 1965 REFERRING PHYSICIAN: Herman Murray [address] [place] [id number] CHIEF COMPLAINT: Patient presents with: consult for colonoscopy HPI: Emilia is a 59 year old female referred for endoscopy. Emilia notes due for screening colonoscopy. Emilia denies abdominal pain. Emilia denies diarrhea. Emilia denies constipation. Emilia denies a change in bowel habits. Emilia denies melena. Emilia denies bright red blood per rectum. Emilia denies hemorrhoids. Emilia denies family history of colon issues. Emilia denies heartburn. Emilia denies dysphagia. Emilia denies a history of ulcers/ peptic ulcer disease. Emilia's medical hx is significant for RA, trigeminal neuralgia, multiple thyroid nodules, GERD, and IBS Emilia has undergone prior endoscopy. Last EGD AND colonoscopy was 08/[address] Burger at [facility]. Sedation:Fentanyl 100 micrograms IV, Midazolam 7 mg IV EGD Impression: - Normal esophagus. - Chronic gastritis. Biopsied. - Normal examined duodenum. Biopsied. COLONOSCOPY Impression: - The entire examined colon is normal. Biopsied. CURRENT MEDICATIONS Current Outpatient Medications Medication Sig tocilizumab (ACTEMRA) 162 mg/0.9 mL subcutaneous injection Inject 0.9 mL subcutaneously one time a week. Per rheum leucovorin (LEUCOVORIN) 5 mg tablet Take 3 Tablet(s) Oral once a week methotrexate 2.5 mg tablet 6 TABLETS once each week. esomeprazole magnesium (NEXIUM 24HR) 22.3 mg cpDR Take 1 capsule by mouth once daily. Per Dr. Varghese FOLIC ACID ORAL Take by mouth twice daily. Not sure of mg multivits w-ca,fe,other min(ONE-A-DAY WOMENS FORMULA 27 MG-0.4 MG TAB) Take one(1) tablet daily. acetaminophen(TYLENOL EXTRA STRENGTH 500 MG TAB) as necessary for pain. use as directed peg 3350-Electrolytes (GOLYTELY) 236-22.74-6.74 -5.86 gram suspension Take 4,000 mL by mouth one time only for 1 dose. Refer to printed prep instructions from your provider. No current facility-administered medications for this visit. ALLERGIES: Quinones, Penicillins, Adhesive Tape-Silicones, and Pneumovax 23 [Pneumococcal 23-Mati Ps Vaccine] PAST MEDICAL HISTORY PAST MEDICAL HISTORY Diagnosis Date Carpal tunnel syndrome, right 02/13/2024 Closed fracture of distal end of right radius with malunion 02/13/202405/2023: Seen Cindy Null at [facility] Complex regional pain syndrome type 1 of right upper extremity 02/13/2024 After injury to the wrist 05/2023. Seen by hand specilist Dr. Null ([facility]) COVID-19 virus infection 11/27/202111/2021 Encounter for lipid screening for cardiovascular disease 02/13/2024 Fatty liver 01/07/2023 Per US done 12/2022 per Rheum for elevated LFT's GERD without esophagitis 06/25/2018 History of COVID-19 11/27/202111/2021 IBS (irritable bowel syndrome) 09/22/2015 Multiple thyroid nodules 01/06/2019 Neck pain 03/05/2013 Obesity, Class I, BMI 30-34.9 02/15/2022 PAIN JOINT, ELBOW 05/21/2008 Rheumatoid arthritis involving multiple sites with positive rheumatoid factor (HCC) 01/23/[address] Varghese Trigeminal neuralgia 03/05/2013 Believe it was humara related. Well adult exam 11/14/2017 last done: 12/31/2018 PAST SURGICAL HISTORY PAST SURGICAL HISTORY Procedure Laterality Date 2D ECHO (EXEP) 03/12/2017 EF=65%, no valve issues ADENOIDECTOMY PRIMARY Adenoidectomy CARDIAC CATH 03/13/2017 normal vessels COLONOSCOPY FLX DX W/COLLJ SPEC WHEN PFRMD 09/03/2013 normal, repeat due 2022 ESOPHAGOGASTRODUODENOS COPY TRANSORAL DIAGNOSTIC 09/03/2013 chronic gastritis LAPAROSCOPY SURG CHOLECYSTECTOMY 02/15/2022 TONSILLECTOMY PRIMARY/SECONDARY Tonsillectomy FAMILY HISTORY FAMILY HISTORY Problem Relation Age of Onset Breast Cancer Mother Diabetes Mother Cancer Father not known Heart disease Sister Hypertension Sister Diabetes Sister Hyperlipidemia Sister Thyroid Sister Alzheimer's Disease No Family History Colon Cancer No Family History Prostate Cancer No Family History Ovarian cancer No Family History Coronary Artery Disease No Family History Kidney Disease No Family History Seizures No Family History Stroke No Family History SOCIAL HISTORY Social History Tobacco Use Smoking status: Never Smokeless tobacco: Never Vaping Use Vaping status: Never Used Substance Use Topics Alcohol use: No Drug use: No REVIEW OF SYMPTOMS: SEE HPI PHYSICAL EXAMINATION: General: The patient is 59 year old, female well nourished, well hydrated in no acute distress. The patient is oriented to time, place, and person. VITALS: Blood pressure 129/83, pulse 77, temperature 36.3 ?C (97.3 ?F), resp. rate 16, weight 80.3 kg (177 lb), last menstrual period 04/20/2019, SpO2 99%. Body mass index is 32.9 kg/m (more content not included)... Normal [facility] Pathology biopsy report Jayson (Tiss)on 03-09-2025 AP DISCLAIMER Normal [facility] Comment on above: Order Comment: Speci men Type: TISSUE SPECIMENOrdering Facility: [facility] Address: [address] [place] [address] Result Comment: Leonora daniels Developed Test (LDT) Disclaimer: Performance characteristics of immunohistochemical, immunofluorescent, and chromogenic in-situ hybridization tests have been determined by the performing laboratory within [facility] Pathology and Laboratory Medicine Department ([facility], [facility], [facility], [facility], [facility], [facility], or [facility]) in a manner consistent with CLIA requirements. One or more of these tests may not have been cleared or approved by the FDA. [facility] is regulated under CLIA as qualified to perform high-complexity testing. These tests are used for clinical purposes. These should not be regarded as investigational or for research. Positive and negative controls stain appropriately. Performed By: #### 6 6121-5 ####[facility] LABCLIA [id number] [place] [address] [place] CASE REPORT Normal [facility] Comment on above: Order Comment: Speci men Type: TISSUE SPECIMENOrdering Facility: [facility] Address: [address] [place] [address] Result Comment: Surg ica Pathology Report Case: [id number] Authorizing Provider: Danielle Orr MD Collected: 03/09/2025 08:47 AM Ordering Location: Ambulatory Surgery Received: 03/09/2025 02:54 PM Pathologist: Kemal Alba MD Specimen: Colon, Transverse, Polyp Performed By: #### 6 6121-5 ####[facility] LABCLIA [id number] [address] [place] FINAL DIAGNOSIS Normal [facility] Comment on above: Order Comment: Speci men Type: TISSUE SPECIMENOrdering Facility: [facility] Address: [address] [place] [address] Result Comment: Aura frederick, transverse, polyp, polypectomy: -Fragments of tubular adenoma. at 1010 EDT Performed By: #### 6 6121-5 ####[facility] LABCLIA [id number] [address] [place] FINAL PERFORMING LAB Normal [facility] Comment on above: Order Comment: Speci men Type: TISSUE SPECIMENOrdering Facility: [facility] Address: [address] [place] [address] Result Comment: Diag nostic interpretation performed at: [facility], [address] [place] [address] CLIA# [id number] Head Host/Hostess: Dk Holley MD Performed By: #### 6 6121-5 ####[facility] LABCLIA [id number] [place] [address] [place] GROSS DESCRIPTION Normal [facility] Comment on above: Order Comment: Speci men Type: TISSUE SPECIMENOrdering Facility: [facility] Address: [address] [place] [address] Result Comment: Aura frederick, Transverse, Polyp Received in formalin are multiple pieces of jj, soft tissue aggregating to 1.3 x 0.3 x 0.2 cm. Totally submitted in one cassette. Gross examination performed at [facility], [address] [place] [address] March 09, 2025 9:47 PM Performed By: #### 6 6121-5 ####[facility] LABCLIA [id number] [place] [id number] [place] CNOVon 02-25-2025 CNOV Office Visit (OBGYWM ) EMILIA HENSLEY ([id number]) 1965 F Date Time Provider Department 02/25/25 8:30 AM RONNI DIAZ OBGYWM During your visit today, we recorded the following information about you: Blood pressure Weight Height Last Period 80.5 kg 1.562 m 04/04/22 Ronni Diaz MD 02/25/2025 9:08 AM Signed Manager Advanced offered: Patient declines. Emilia is a 59 year old who presents for an annual gynecologic exam without complaints. Postmenopausal: Yes since age 54 HRT use: No. Age at Menarche: 12 Still get period: No Menopause symptoms: Hot flashes; Night sweats; Vaginal dryness Time with current partner: 30 years control frequency: Never HPV vaccine: Unsure; Last pap smear: 07/26/2020, normal History of abnormal pap: No Bothersome pelvic pain: No Last mammogram: 2024 normal History of abnormal mammogram: Yes , once OB History Gravida1 Para1 Term1 Preterm0 AB0 Living1 SAB0 IAB0 Ectopic0 Multiple0 Live Births0 FAMILY HISTORY Problem Relation Age of Onset Breast Cancer Mother Diabetes Mother Cancer Father not known Heart disease Sister Hypertension Sister Diabetes Sister Hyperlipidemia Sister Thyroid Sister Alzheimer's Disease No Family History Colon Cancer No Family History Prostate Cancer No Family History Ovarian cancer No Family History Coronary Artery Disease No Family History Kidney Disease No Family History Seizures No Family History Stroke No Family History SOCIAL HISTORY Social History Tobacco Use Smoking status: Never Smokeless tobacco: Never Vaping Use Vaping status: Never Used Substance Use Topics Alcohol use: No Drug use: No REVIEW OF SYSTEMS Abdomen: she has a scheduled colonoscopy for GI concerns. Bladder: No dysuria, gross hematuria, urinary frequency, urinary urgency, or incontinence Breast: No breast lumps, nipple d/c, overlying skin changes, redness or skin retraction Allergies and current medication updated:Yes SENSITIVE EXAM: The sensitive examination was discussed with the Patient or Patient's Authorized Body Worker. As applicable, any other physician, advance practice provider, medical student, or other health professional student that will be observing or involved in the sensitive examination for educational or training purposes was discussed with the Patient or Authorized Body Worker. The Patient or Authorized Body Worker has agreed to proceed with the sensitive examination. (Sensitive examination includes inspection and/or palpation of the breasts, pelvis, prostate and anorectal regions). EXAM: BP 106/70 Ht 5' 1.5 (1.56m) Wt 177 lb 6.4 oz (80.5kg) LMP 04/04/2022 BMI 32.98 kg/(m2). GENERAL: pleasant, female in no apparent distress BREAST: soft, non-tender, symmetric, no dominant mass, normal nipple-areolar complex, no lymphadenopathy, and no nipple discharge CHEST: Normal inspiratory effort ABDOMEN: soft, non-tender, and no masses PELVIC: external genitalia normal, normal Bartholin's glands, urethra, Evart's glands, no cervical lesions, normal appearing perineal body and perianal region; atrophic vagina BIMANUAL: uterus normal size, shape and consistency, no adnexal masses, and non-tender RECTOVAGINAL: deferred. NEURO: alert and oriented x3,exam grossly non-focal EXTREMITIES: normal ASSESSMENT/PLAN: 1) Health maintenance: Pap done with HPV. Mammogram up to date Nutrition, exercise and routine health maintenance exams reviewed. Colon cancer screening: scheduled 2) Follow up one year or sooner as needed 3) Atrophic vaginitis - discussed R/B/A and estrace given Ronni Diaz MD Allergies As of Date: 02/25/2025 Noted Allergy Reaction QUINONES 12/23/2023 4 - Hives PENICILLINS 12/12/2005 14 - Other: See Comments Comments: Rash and swelling ADHESIVE TAPE-SILICONES 02/26/2022 2 - Rash PNEUMOVAX 23 (PNEUMOCOCCAL 23-MATI*06/25/2018 14 - Other: See Comments Comments: Back headache, Arm pain for 5 days Date Reviewed: 02/25/2025 Reviewed by: Ronni Diaz MD - Fully Assessed Reason for Visit: Well Woman [1463] Primary Visit Diagnosis:Encounter for gynecological examination (general) (routine) without abnormal findings [Z01.419] Other Visit Diagnoses:Encounter for screening for human papillomavirus (HPV) [Z11.51] Pap smear for cervical cancer screening [Z12.4] Encounter for screening mammogram for breast cancer [Z12.31] Postmenopausal atrophic vaginitis [N95.2] Order(s):MAKENZIE SCREENING W KALEIGH [8899645] Order #: [id number] FUTURE PAP TEST [CFR7919] Order #: [id number]. #:[id number] estradiol (ESTRACE) 0.01 % (0.1 mg/gram) vaginal creamUse 1g vaginally. Nightly for 2 weeks. Then every other day for 2 weeks. Then 2 times per week ongoing.Disp: 42.5 gRfl: 11 Prescriptions as of 02/25/2025 - estradiol (ESTRACE) 0.01 % (0.1 mg/gram) vaginal cream (more content not included)... Normal [facility] HIGH RISK HUMAN PAPILLOMA FELICITA (HPV), PCR FOR DETECTION AND GENOTYPINGon 02-25-2025 HPV 16 Ag Ql (Unsp spec) Not detected Normal Not detected [facility] Comment on above: Order Comment: Speci men Type: FLUID SPECIMENOrdering Facility: [facility] Address: [address] [place] [address] Performed By: #### H PVHRT ####[facility] [id number] [place] [address] [place] HPV 18 Ag Ql (Unsp spec) Not detected Normal Not detected [facility] Comment on above: Order Comment: Speci men Type: FLUID SPECIMENOrdering Facility: [facility] Address: [address] [place] [address] Performed By: #### H PVHRT ####[facility] [id number] [place] [address] [place] HPV 31+33+35+39+45+51+52+56 +58+59+66+68 DNA DAVY+probe Ql (Cvx) Not detected Normal Not detected [facility] Comment on above: Order Comment: Speci men Type: FLUID SPECIMENOrdering Facility: [facility] Address: [address], [place] [address] Result Comment: High Risk HPV Other Type includes HPV types 31, 33, 35, 39, 45, 51, 52, 56, 58, 59, 66 and 68. Performed By: #### H PVHRT ####[facility] LABCLIA [id number] [address] [place] [address] [place] PAP TESTon 02-25-2025 ADEQUACY Satisfactory for interpretation. Normal [facility] Comment on above: Order Comment: Speci men Type: FLUID SPECIMENOrdering Facility: [facility] Address: [address] [place] [address] Performed By: #### L [id number] ####[facility] LABIA [id number] [address] [address] [place] CASE REPORT Normal [facility] Comment on above: Order Comment: Speci men Type: FLUID SPECIMENOrdering Facility: [facility] Address: [address] [place] [address] Result Comment: Gyne cologic Cytology Report Case: [id number] Authorizing Provider: Ronni Diaz MD Collected: 02/25/2025 09:08 AM Ordering Location: OB/Gynecology Received: 02/25/2025 12:56 PM First Screen: Mohorcic, Shonna, CT, ASCP Specimen: Pap Test, ThinPrep, Cervix Performed By: #### L [id number] ####[facility] LABCLIA [id number] [address] [place] [address] [place] CLINICAL HISTORY, CYTOLOGY, HELMET HAT BRIM CUTTER Routine Exam Normal [facility] Comment on above: Order Comment: Speci men Type: FLUID SPECIMENOrdering Facility: [facility] Address: [address] [place] [address] Result Comment: Post Menopausal Performed By: #### L [id number] ####[facility] LABCLIA [id number] [address] [place] [address] [place] CYTOLOGY PAP OTHER INTERPRETATION Atrophic specimen. Normal [facility] Comment on above: Order Comment: Speci men Type: FLUID SPECIMENOrdering Facility: [facility] Address: [address] [place] [address] Performed By: #### L [id number] ####[facility] LABCLIA [id number] [place] [id number] [place] FINAL PERFORMING LAB Normal [facility] Comment on above: Order Comment: Speci men Type: FLUID SPECIMENOrdering Facility: [facility] Address: [address] [place] [address] Result Comment: Tech nical component, chip crusher operator screening performed at [facility], [address] [place] [address] [place] [address] CLIA# [id number] Diagnostic interpretation performed at [facility], [address] [place], [place] [id number] CLIA# [id number] Head Host/Hostess: Dk Holley M.D. Performed By: #### L [id number] ####[facility] LABCLIA [id number] [place] [address] [place] INTERPRETATION, CYTOLOGY, HELMET HAT BRIM CUTTER Normal [facility] Comment on above: Order Comment: Speci men Type: FLUID SPECIMENOrdering Facility: [facility] Address: [address] [place] [address] Result Comment: Nega tive for intraepithelial lesion or malignancy. at 1052 EDT Performed By: #### L [id number] ####[facility] LABCLIA [id number] [place] [id number] [place] PAP DISCLAIMER COMMENT The Pap Smear is a screening test for cervical cancer. False negative results occur with all screening tests, emphasizing the need for rescreening at recommended intervals, and clinical correlation. Normal [facility] Comment on above: Order Comment: Speci men Type: FLUID SPECIMENOrdering Facility: [facility] Address: [address] [place] [address] Performed By: #### L [id number] ####[facility] LABCLIA [id number] [place] [id number] [facility] Wes 02-23-2025 CNPN Telephone (FAMPWS) EMILIA HENSLEY ([id number]) 1965 F Date Time Provider Department 02/23/25 [facility] During your visit today, we recorded the following information about you: Analilia Diaz MA 02/23/2025 2:56 PM Signed Scan on 02/22/2025 11:42 AM by Provider, Mirela PAIsabelC: Chemistry Scan on 02/22/2025 12:10 PM by Provider, External, PA-C: Chemistry Please review results. CRISTÓBAL Reich Jeffrey A, MD 03/01/2025 10:32 PM Signed Let patient know her lipid panel showed her Trigs and HDL were ok. Her LDL (bad chol) is elevated at 168 (goal<130). Working on reduced fat in the diet and increased exercise can help lower it. Her other labs were ok. When I calculated her fibrosis risk score for her liver it was 1.35. anything over 1.3 for someone under the age of 65 is elevated. I would like to get a Liver US with elastography done at [facility]. If ok we will send in the order. SONIA RIVERA 03/02/2025 9:11 AM Signed Patient notified of results, verbalizes understanding of instructions. States that she is fine with completing US as recommended. She did also state that she has an appt with Dr Polanco and will discuss whether she feels her medication may be contributing to any of this. Please send order to [facility]. Pt will call them to schedule appt. CHRISTIAN Garcia Jeffrey A, MD 03/02/2025 12:44 PM Signed Order ready to be faxed. Analilia Diaz MA 03/02/2025 12:51 PM Signed Faxed and placed referral. Analilia Diaz MA Allergies As of Date: 02/23/2025 Noted Allergy Reaction QUINONES 12/23/2023 4 - Hives PENICILLINS 12/12/2005 14 - Other: See Comments Comments: Rash and swelling ADHESIVE TAPE-SILICONES 02/26/2022 2 - Rash PNEUMOVAX 23 (PNEUMOCOCCAL 23-MATI*06/25/2018 14 - Other: See Comments Comments: Back headache, Arm pain for 5 days Date Reviewed: 02/22/2025 Reviewed by: Vale Macias APRN.RETAIL PARTS PROFESSIONAL - Fully Assessed Reason for Visit: Results [95] Cmt: [facility] Primary Visit Diagnosis:Fatty liver [K76.0] Order(s):HEMOGLOBIN A1C (EXTERNAL) [4169086] Order #: [id number] VITAMIN B12 [SQB12] Order #: [id number] TSH (EXTERNAL) [5756709] Order #: [id number] CMP (EXTERNAL) [2764181] Order #: [id number] MAGNESIUM [SQMG1] Order #: [id number] LIPID PANEL (OUTSIDE) [9816908] Order #: [id number] CBC W/DIFF/PLT (EXTERNAL LAB ELENITA) [0315464] Order #: [id number] Prescriptions as of 03/02/2025 - estradiol (ESTRACE) 0.01 % (0.1 mg/gram) vaginal cream Use 1g vaginally. Nightly for 2 weeks. Then every other day for 2 weeks. Then 2 times per week ongoing. - tocilizumab (ACTEMRA) 162 mg/0.9 mL subcutaneous injection Inject 0.9 mL subcutaneously one time a week. Per rheum - leucovorin (LEUCOVORIN) 5 mg tablet Take 3 Tablet(s) Oral once a week - methotrexate 2.5 mg tablet 6 TABLETS once each week. - esomeprazole magnesium (NEXIUM 24HR) 22.3 mg cpDR Take 1 capsule by mouth once daily. Per Dr. Varghese - FOLIC ACID ORAL Take by mouth twice daily. Not sure of mg - multivits w-ca,fe,other min(ONE-A-DAY WOMENS FORMULA 27 MG-0.4 MG TAB) Take one(1) tablet daily. - acetaminophen(TYLENOL EXTRA STRENGTH 500 MG TAB) as necessary for pain. use as directed Problem List As Of Date 02/23/2025 Noted Resolved Routine general medical examination at a health*04/26/2008 11/28/2015 PAIN JOINT, ELBOW [M25.529] 05/21/2008 Rheumatoid arthritis involving multiple sites w*01/23/2013 Trigeminal neuralgia [G50.0] 03/05/2013 Neck pain [M54.2] 03/05/2013 IBS (irritable bowel syndrome) [K58.9] 09/22/2015 Visit for routine cigarette package examiner exam [Z01.419] 09/22/2015 11/28/2015 Well adult exam [Z00.00] 09/22/2015 11/28/2015 Need for lipid screening [Z13.220] 09/22/2015 11/28/2015 Screening for diabetes mellitus (DM) [Z13.1] 09/22/2015 11/28/2015 Encounter for screening for diabetes mellitus [*05/03/2017 Well adult exam [Z00.00] 11/14/2017 Encounter for screening mammogram for breast ca*06/25/2018 GERD without esophagitis [K21.9] 06/25/2018 Medication management [Z79.899] 06/25/2018 Screening for colon cancer [Z12.11] 12/31/2018 Multiple thyroid nodules [E04.2] 01/06/2019 History of COVID-19 [Z86.16] 11/27/2021 Obesity, Class I, BMI 30-34.9 [E66.811] 02/15/2022 Fatty liver [K76.0] 01/07/2023 Complex regional pain syndrome type 1 of right *02/13/2024 Closed fracture of distal end of right radius w*02/13/2024 Carpal tunnel syndrome, right [G56.01] 02/13/2024 Encounter for lipid screening for cardiovascula*02/13/20 Encounter Status:Closed by HERMAN MURRAY on 03/01/25 Normal [facility] Absolute lymphocyte countOrd ered By: Herman Murray on 02-22-2025 Lymphocytes Auto (Unsp spec) [#/Vol] 2.65 10*3/uL 0.83-4.51 [facility] Absolute neutrophil countOrd ered By: Herman Murray on 02-22-2025 Neutrophils (Bld) [#/Vol] 1.3 10*3/uL Low 2.0-7.7 [facility] Anion gap in Serum or Plasma Ordered By: Herman Murray on 02-22-2025 Anion gap [Moles/Vol] 11 mmol/L 5-15 [facility] Automated blood erythrocyte countOrdered By: Herman Murray on 02-22-2025 RBC (Bld) [#/Vol] 4.35 10*6/uL 4.2-5.4 [facility] Automated blood hematocrit ( percentage)Ordered By: Herman Murray on 02-22-2025 Hematocrit (Bld) [Volume fraction] 41.2 % 37-47 [facility] Automated lymphocyte count a s percentage of total leukocytesOrdered By: Herman Murray on 02-22-2025 Lymphocytes/100 WBC Auto (Unsp spec) 58.0 % High 19-41 [facility] BUN/creatinine ratioOrdered By: Herman Murray on 02-22-2025 Urea nitrogen/Creatinine [Mass ratio] 11.1 mg/mg 10-20 [facility] Basophil percentageOrdered B y: Herman Murray on 02-22-2025 Basophils/100 WBC (Bld) 1.1 % High 0-1 [facility] Bilirubin, totalOrdered By: Herman Murray on 02-22-2025 Bilirubin [Mass/Vol] 0.49 mg/dL 0.00-1.30 [facility] CBC W/DIFF/PLT (EXTERNAL LAB ELENITA)on 02-22-2025 BASO ABSOLUTE [facility] EOS ABSOLUTE [facility] Immature Gran % [facility] IMMATURE GRANS ABSOLUTE [facility] Lymphocytes/100 WBC (Bld) 58 % [facility] LYMPHS ABSOLUTE 2.65 [facility] MCH 32 Pg 26.6 - 33 Pg [facility] MONOCYTES ABSOLUTE [facility] Monocytes/100 WBC (Bld) 9 % [facility] NEUTROPHILS ABSOLUTE 1.3 [facility] CBC W/Diff, Automatedon 02-09 Absolute Lymph 2.65 X10 3/uL Normal 0.83-4.51 [facility] Comment on above: Order Comment: CMP C BCD (DUPLICATE FOR BOTH DRS)-CONOR OTHER TESTS-TERRI Performed By: #### L 500.4100, L501.9520, L500.4050, L501.9985, L501.5200, L503.0106, L100.0100 #### [facility] [address] [place], [address] Absolute Neut 1.3 X10 3/uL Low 2.0-7.7 [facility] Comment on above: Order Comment: CMP C BCD (DUPLICATE FOR BOTH DRS)-CONOR OTHER TESTS-TERRI Performed By: #### L 500.4100, L501.9520, L500.4050, L501.9985, L501.5200, L503.0106, L100.0100 #### [facility] [address] [facility] [address] [address] [place], [address] Basophils/100 WBC (Bld) 1.1 % High 0-1 [facility] Comment on above: Order Comment: CMP C BCD (DUPLICATE FOR BOTH DRS)-SCARLETT OTHER TESTS-TERRI Performed By: #### L 500.4100, L501.9520, L500.4050, L501.9985, L501.5200, L503.0106, L100.0100 #### [facility] [address] [facility] [address] [place], [address] Eosinophils/100 WBC (Bld) 3.9 % Normal 0-5 [facility] Comment on above: Order Comment: CMP C BCD (DUPLICATE FOR BOTH DRS)-CONOR OTHER TESTS-TERRI Performed By: #### L 500.4100, L501.9520, L500.4050, L501.9985, L501.5200, L503.0106, L100.0100 #### [facility] [address] [facility] [place], [address] Erythrocyte distribution width (RBC) [Ratio] 13.2 % Normal 11.6-14.6 [facility] Comment on above: Order Comment: CMP C BCD (DUPLICATE FOR BOTH DRS)-SCARLETTKI OTHER TESTS-TERRI Performed By: #### L 500.4100, L501.9520, L500.4050, L501.9985, L501.5200, L503.0106, L100.0100 #### [facility] [address] [place], [address] Hematocrit (Bld) [Volume fraction] 41.2 % Normal 37-47 [facility] Comment on above: Order Comment: CMP C BCD (DUPLICATE FOR BOTH DRS)-CONOR OTHER TESTS-TERRI Performed By: #### L 500.4100, L501.9520, L500.4050, L501.9985, L501.5200, L503.0106, L100.0100 #### [facility] [address] [facility] [place], [address] Hemoglobin (Bld) [Mass/Vol] 13.9 g/dL Normal 12.0-15.0 [facility] Comment on above: Order Comment: CMP C BCD (DUPLICATE FOR BOTH DRS)-RCICOLANKI OTHER TESTS-TERRI Performed By: #### L 500.4100, L501.9520, L500.4050, L501.9985, L501.5200, L503.0106, L100.0100 #### [facility] [address] [facility] [place], [address] IG% 0.200 Normal 0.0-0.9 [facility] Comment on above: Order Comment: CMP C BCD (DUPLICATE FOR BOTH DRS)-RICCOLANKI OTHER TESTS-TERRI Result Comment: IG% - Immature Granulocytes (promyelocytes, myelocytes and metamyelocytes) > 1% indicates that a LEFT SHIFT is Present. Performed By: #### L 500.4100, L501.9520, L500.4050, L501.9985, L501.5200, L503.0106, L100.0100 #### [facility] [address] [place], [address] Lymphocytes/100 WBC (Bld) 58.0 % High 19-41 [facility] Comment on above: Order Comment: CMP C BCD (DUPLICATE FOR BOTH DRS)-CONOR OTHER TESTS-TERRI Performed By: #### L 500.4100, L501.9520, L500.4050, L501.9985, L501.5200, L503.0106, L100.0100 #### [facility] [address] [facility] [address] [place], [address] MCH (RBC) [Entitic mass] 32.0 pg Normal 27.0-32.0 [facility] Comment on above: Order Comment: CMP C BCD (DUPLICATE FOR BOTH DRS)-CONOR OTHER TESTS-TERRI Performed By: #### L 500.4100, L501.9520, L500.4050, L501.9985, L501.5200, L503.0106, L100.0100 #### [facility] [address] [facility] [place], [address] MCHC (RBC) [Mass/Vol] 33.7 g/dL Normal 32-36 [facility] Comment on above: Order Comment: [facility] C BCD (DUPLICATE FOR BOTH DRS)-CONOR OTHER TESTS-TERRI Performed By: #### L 500.4100, L501.9520, L500.4050, L501.9985, L501.5200, L503.0106, L100.0100 #### [facility] [address] [place], [address] MCV (RBC) [Entitic vol] 94.7 fL Normal 81-99 [facility] Comment on above: Order Comment: CMP C BCD (DUPLICATE FOR BOTH DRS)-CONOR OTHER TESTS-TERRI Performed By: #### L 500.4100, L501.9520, L500.4050, L501.9985, L501.5200, L503.0106, L100.0100 #### [facility] [address] [place], [address] Monocytes/100 WBC (Bld) 9.0 % Normal 0-10 [facility] Comment on above: Order Comment: CMP C BCD (DUPLICATE FOR BOTH DRS)-CONOR OTHER TESTS-TERRI Performed By: #### L 500.4100, L501.9520, L500.4050, L501.9985, L501.5200, L503.0106, L100.0100 #### [facility] [address] [place], [address] Neutrophils/100 WBC (Bld) 27.8 % Low 47-70 [facility] Comment on above: Order Comment: CMP C BCD (DUPLICATE FOR BOTH DRS)-CONOR OTHER TESTS-TERRI Performed By: #### L 500.4100, L501.9520, L500.4050, L501.9985, L501.5200, L503.0106, L100.0100 #### [facility] [address] [place], [address] Nucleated RBC (Bld) [#/Vol] 0 10*3/uL Normal 0-5 [facility] Comment on above: Order Comment: CMP C BCD (DUPLICATE FOR BOTH DRS)-CONOR OTHER TESTS-TERRI Performed By: #### L 500.4100, L501.9520, L500.4050, L501.9985, L501.5200, L503.0106, L100.0100 #### [facility] [address] [place], [address] Platelet mean volume (Bld) [Entitic vol] 10.9 fL Normal 6.2-12.0 [facility] Comment on above: Order Comment: CMP C BCD (DUPLICATE FOR BOTH DRS)-CONOR OTHER TESTS-TERRI Performed By: #### L 500.4100, L501.9520, L500.4050, L501.9985, L501.5200, L503.0106, L100.0100 #### [facility] [address] [place], [address] Platelets (Bld) [#/Vol] 199 10*3/uL Normal 150-450 [facility] Comment on above: Order Comment: CMP C BCD (DUPLICATE FOR BOTH DRS)-CONOR OTHER TESTS-TERRI Performed By: #### L 500.4100, L501.9520, L500.4050, L501.9985, L501.5200, L503.0106, L100.0100 #### [facility] [address] [place], [address] RBC (Bld) [#/Vol] 4.35 10*6/uL Normal 4.2-5.4 [facility] Comment on above: Order Comment: CMP C BCD (DUPLICATE FOR BOTH DRS)-CONOR OTHER TESTS-TERRI Performed By: #### L 500.4100, L501.9520, L500.4050, L501.9985, L501.5200, L503.0106, L100.0100 #### [facility] [address] [place], [address] RDW SD 45.7 fl High 35.1-43.9 [facility] Comment on above: Order Comment: CMP C BCD (DUPLICATE FOR BOTH DRS)-CONOR OTHER TESTS-TERRI Performed By: #### L 500.4100, L501.9520, L500.4050, L501.9985, L501.5200, L503.0106, L100.0100 #### [facility] [address] [place], [address] WBC (Bld) [#/Vol] 4.6 10*3/uL Normal 4.4-11.[address] [facility] Comment on above: Order Comment: CMP C BCD (DUPLICATE FOR BOTH DRS)-CONOR OTHER TESTS-TERRI Performed By: #### L 500.4100, L501.9520, L500.4050, L501.9985, L501.5200, L503.0106, L100.0100 #### [facility] [place], [address] CMP (EXTERNAL)on 02-22-2025 Alk Phos Total 58 U/L 45 - 117 U/L [facility] Bili Total 0.49 mg/dL 0.2 - 1 mg/dL [facility] GFR 77 mL/MIN [facility] GFR AFR AMER [facility] CNOVon 02-22-2025 CNOV Office Visit (GENSWS ) EMILIA HENSLEY ([id number]) 1965 F Date Time Provider Department 02/22/25 10:00 AM VALE MACIAS During your visit today, we recorded the following information about you: Temperature Pulse Respiration Blood pressure 97.3 degrees 77/minute 16/minute 129/83 Weight 80.3 kg Vlae Macias APRN.[employer] PROFESSIONAL 02/22/2025 10:37 AM Signed HISTORY AND PHYSICAL Emilia M Myles : 1965 REFERRING PHYSICIAN: Herman Murray [address] [place] [id number] CHIEF COMPLAINT: Patient presents with: consult for colonoscopy HPI: Emilia is a 59 year old female referred for endoscopy. Emilia notes due for screening colonoscopy. Emilia denies abdominal pain. Emilia denies diarrhea. Emilia denies constipation. Emilia denies a change in bowel habits. Emilia denies melena. Emilia denies bright red blood per rectum. Emilia denies hemorrhoids. Emilia denies family history of colon issues. Emilia denies heartburn. Emilia denies dysphagia. Emilia denies a history of ulcers/ peptic ulcer disease. Emilia's medical hx is significant for RA, trigeminal neuralgia, multiple thyroid nodules, GERD, and IBS Emilia has undergone prior endoscopy. Last EGD AND colonoscopy was 08/2013 with Dr. Burger at [facility]. Sedation:Fentanyl 100 micrograms IV, Midazolam 7 mg IV EGD Impression: - Normal esophagus. - Chronic gastritis. Biopsied. - Normal examined duodenum. Biopsied. COLONOSCOPY Impression: - The entire examined colon is normal. Biopsied. Current Outpatient Medications Medication Sig tocilizumab (ACTEMRA) 162 mg/0.9 mL subcutaneous injection Inject 0.9 mL subcutaneously one time a week. Per rheum leucovorin (LEUCOVORIN) 5 mg tablet Take 3 Tablet(s) Oral once a week methotrexate 2.5 mg tablet 6 TABLETS once each week. esomeprazole magnesium (NEXIUM 24HR) 22.3 mg cpDR Take 1 capsule by mouth once daily. Per Dr. Varghese FOLIC ACID ORAL Take by mouth twice daily. Not sure of mg multivits w-ca,fe,other min(ONE-A-DAY WOMENS FORMULA 27 MG-0.4 MG TAB) Take one(1) tablet daily. acetaminophen(TYLENOL EXTRA STRENGTH 500 MG TAB) as necessary for pain. use as directed peg 3350-Electrolytes (GOLYTELY) 236-22.74-6.74 -5.86 gram suspension Take 4,000 mL by mouth one time only for 1 dose. Refer to printed prep instructions from your provider. No current facility-administered medications for this visit. ALLERGIES: Quinones, Penicillins, Adhesive Tape-Silicones, and Pneumovax 23 [Pneumococcal 23-Mati Ps Vaccine] PAST MEDICAL HISTORY Diagnosis Date Carpal tunnel syndrome, right 02/13/2024 Closed fracture of distal end of right radius with malunion 02/13/202405/2023: Seen Cindy fitzpatrick then Dr. Null at [facility] Complex regional pain syndrome type 1 of right upper extremity 02/13/2024 After injury to the wrist 05/2023. Seen by hand specilist Dr. Null ([facility]) COVID-19 virus infection 11/27/202111/2021 Encounter for lipid screening for cardiovascular disease 02/13/2024 Fatty liver 01/07/2023 Per US done 12/2022 per Rheum for elevated LFT's GERD without esophagitis 06/25/2018 History of COVID-19 11/27/202111/2021 IBS (irritable bowel syndrome) 09/22/2015 Multiple thyroid nodules 01/06/2019 Neck pain 03/05/2013 Obesity, Class I, BMI 30-34.9 02/15/2022 PAIN JOINT, ELBOW 05/21/2008 Rheumatoid arthritis involving multiple sites with positive rheumatoid factor (HCC) 01/23/[address] Varghese Trigeminal neuralgia 03/05/2013 Believe it was humara related. Well adult exam 11/14/2017 last done: 12/31/2018 PAST SURGICAL HISTORY Procedure Laterality Date 2D ECHO (EXEP) 03/12/2017 EF=65%, no valve issues ADENOIDECTOMY PRIMARY Adenoidectomy CARDIAC CATH 03/13/2017 normal vessels COLONOSCOPY FLX DX W/COLLJ SPEC WHEN PFRMD 09/03/2013 normal, repeat due 2022 ESOPHAGOGASTRODUODENOS COPY TRANSORAL DIAGNOSTIC 09/03/2013 chronic gastritis LAPAROSCOPY SURG CHOLECYSTECTOMY 02/15/2022 TONSILLECTOMY PRIMARY/SECONDARY Tonsillectomy FAMILY HISTORY Problem Relation Age of Onset Breast Cancer Mother Diabetes Mother Cancer Father not known Heart disease Sister Hypertension Sister Diabetes Sister Hyperlipidemia Sister Thyroid Sister Alzheimer's Disease No Family History Colon Cancer No Family History Prostate Cancer No Family History Ovarian cancer No Family History Coronary Artery Disease No Family History Kidney Disease No Family History Seizures No Family History Stroke No Family History Social History Tobacco Use Smoking status: Never Smokeless tobacco: Never Vaping Use Vaping status: Never Used Substance Use Topics Alcohol use: No Drug use: No REVIEW OF SYMPTOMS: SEE HPI PHYSICAL EXAMINATION: General: The patient is 59 year old, female well nourished, well hydrated in no acute distress. The patient is oriented to time, p (more content not included)... Normal [facility] Calculated very low density lipoprotein (VLDL) cholesterol measurementOrdered By: Herman Murray on 02-22-2025 Calculated very low density lipoprotein (VLDL) cholesterol measurement 26 mg/dL 5-40 [facility] VLDL Cholesterol 26 mg/dL 5-40 [facility] Carbon dioxide, total [Moles /volume] in Central venous bloodOrdered By: Herman Murray on 02-22-2025 CO2 [Moles/Vol] 24.6 mmol/L 21.0-32.0 [facility] Chloride assayOrdered By: Herbert Murray on 02-22-2025 Chloride [Moles/Vol] 104 mmol/L 98-108 [facility] Comprehensive Metabolic Prof ilon 02-22-2025 Albumin [Mass/Vol] 4.5 g/dL Normal 3.5-5.[address] [facility] Comment on above: Order Comment: CMP C BCD (DUPLICATE FOR BOTH DRS)-[facility] OTHER TESTS-TERRI Performed By: #### L 500.4100, L501.9520, L500.4050, L501.9985, L501.5200, L503.0106, L100.0100 #### [facility] [address] [place], [address] Albumin/Globulin [Mass ratio] 2.1 {ratio} Normal 0.9-2.4 [facility] Comment on above: Order Comment: CMP C BCD (DUPLICATE FOR BOTH DRS)-[facility] OTHER TESTS-TERRI Performed By: #### L 500.4100, L501.9520, L500.4050, L501.9985, L501.5200, L503.0106, L100.0100 #### [facility] [address] [place], [address] ALK PHOS 58 U/L Normal 35-104 [facility] Comment on above: Order Comment: CMP C BCD (DUPLICATE FOR BOTH DRS)-[facility] OTHER TESTS-TERRI Performed By: #### L 500.4100, L501.9520, L500.4050, L501.9985, L501.5200, L503.0106, L100.0100 #### [facility] [address] [place], [address] ALT [Catalytic activity/Vol] 43 U/L High <=34 [facility] Comment on above: Order Comment: CMP C BCD (DUPLICATE FOR BOTH DRS)-[facility] OTHER TESTS-TERRI Performed By: #### L 500.4100, L501.9520, L500.4050, L501.9985, L501.5200, L503.0106, L100.0100 #### [facility] [address] [place], [address] AST [Catalytic activity/Vol] 31 U/L Normal <=31 [facility] Comment on above: Order Comment: CMP C BCD (DUPLICATE FOR BOTH DRS)-[facility] OTHER TESTS-TERRI Performed By: #### L 500.4100, L501.9520, L500.4050, L501.9985, L501.5200, L503.0106, L100.0100 #### [facility] [address] [place], [address] Bilirubin [Mass/Vol] 0.49 mg/dL Normal 0.00-1.30 [facility] Comment on above: Order Comment: CMP C BCD (DUPLICATE FOR BOTH DRS)-[facility] OTHER TESTS-TERRI Performed By: #### L 500.4100, L501.9520, L500.4050, L501.9985, L501.5200, L503.0106, L100.0100 #### [facility] [address] [place], [address] BUN/CRE 11.1 RATIO Normal 10-20 [facility] Comment on above: Order Comment: CMP C BCD (DUPLICATE FOR BOTH DRS)-[facility] OTHER TESTS-TERRI Performed By: #### L 500.4100, L501.9520, L500.4050, L501.9985, L501.5200, L503.0106, L100.0100 #### [facility] [address] [place], [address] Calcium [Mass/Vol] 9.1 mg/dL Normal 7.6-11.[address] [facility] Comment on above: Order Comment: CMP C BCD (DUPLICATE FOR BOTH DRS)-[facility] OTHER TESTS-TERRI Performed By: #### L 500.4100, L501.9520, L500.4050, L501.9985, L501.5200, L503.0106, L100.0100 #### [facility] [address] [place], [address] Chloride [Moles/Vol] 104 mmol/L Normal 98-108 [facility] Comment on above: Order Comment: CMP C BCD (DUPLICATE FOR BOTH DRS)-[facility] OTHER TESTS-TERRI Performed By: #### L 500.4100, L501.9520, L500.4050, L501.9985, L501.5200, L503.0106, L100.0100 #### [facility] [address] [place], [address] CO2 [Moles/Vol] 24.6 mmol/L Normal 21.0-32.0 [facility] Comment on above: Order Comment: CMP C BCD (DUPLICATE FOR BOTH DRS)-[facility] OTHER TESTS-TERRI Performed By: #### L 500.4100, L501.9520, L500.4050, L501.9985, L501.5200, L503.0106, L100.0100 #### [facility] [address] [place], [address] Creatinine [Mass/Vol] 0.88 mg/dL Normal 0.70-1.20 [facility] Comment on above: Order Comment: CMP C BCD (DUPLICATE FOR BOTH DRS)-[facility] OTHER TESTS-TERRI Performed By: #### L 500.4100, L501.9520, L500.4050, L501.9985, L501.5200, L503.0106, L100.0100 #### [facility] [address] [place], [address] GAP 11 Normal 5-15 [facility] Comment on above: Order Comment: CMP C BCD (DUPLICATE FOR BOTH DRS)-[facility] OTHER TESTS-TERRI Performed By: #### L 500.4100, L501.9520, L500.4050, L501.9985, L501.5200, L503.0106, L100.0100 #### [facility] [address] [place], [address] GFR/1.73 sq M.predicted among non-blacks MDRD (S/P/Bld) [Vol rate/Area] 77 mL/min/{1.73_m2} Normal >60 [facility] Comment on above: Order Comment: CMP C BCD (DUPLICATE FOR BOTH DRS)-[facility] OTHER TESTS-TERRI Result Comment: mL/m in/1.73m2 CKD-EPI Creatinine Equation (2020) Performed By: #### L 500.4100, L501.9520, L500.4050, L501.9985, L501.5200, L503.0106, L100.0100 #### [facility] [address] [place], [address] Globulin (S) [Mass/Vol] 2.1 g/dL Low 2.2-4.2 [facility] Comment on above: Order Comment: CMP C BCD (DUPLICATE FOR BOTH DRS)-[facility] OTHER TESTS-TERRI Performed By: #### L 500.4100, L501.9520, L500.4050, L501.9985, L501.5200, L503.0106, L100.0100 #### [facility] [address] [place], [address] Glucose [Mass/Vol] 101 mg/dL High 70-[address] [facility] Comment on above: Order Comment: CMP C BCD (DUPLICATE FOR BOTH DRS)-[facility] OTHER TESTS-TERRI Performed By: #### L 500.4100, L501.9520, L500.4050, L501.9985, L501.5200, L503.0106, L100.0100 #### [facility] [address] [place], [address] Potassium [Moles/Vol] 3.5 mmol/L Normal 3.3-5.1 [facility] Comment on above: Order Comment: CMP C BCD (DUPLICATE FOR BOTH DRS)-[facility] OTHER TESTS-TERRI Performed By: #### L 500.4100, L501.9520, L500.4050, L501.9985, L501.5200, L503.0106, L100.0100 #### [facility] [address] [place], [address] Sodium [Moles/Vol] 140 mmol/L Normal 133-[address] [facility] Comment on above: Order Comment: CMP C BCD (DUPLICATE FOR BOTH DRS)-[facility] OTHER TESTS-TERRI Performed By: #### L 500.4100, L501.9520, L500.4050, L501.9985, L501.5200, L503.0106, L100.0100 #### [facility] [address] [facility] [address] [place], [place], [id number] (090) T PROT 6.6 g/dL Normal 5.9-8.4 [facility] Comment on above: Order Comment: CMP C BCD (DUPLICATE FOR BOTH DRS)-[facility] OTHER [facility]S-[facility] Performed By: #### L 500.4100, L501.9520, L500.4050, L501.9985, L501.5200, L503.0106, L100.0100 #### [facility] [address] [facility] [place], [address] Urea nitrogen [Mass/Vol] 10 mg/dL Normal 4-19 [facility] Comment on above: Order Comment: CMP C BCD (DUPLICATE FOR BOTH DRS)-[facility] OTHER TESTS-TERRI Performed By: #### L 500.4100, L501.9520, L500.4050, L501.9985, L501.5200, L503.0106, L100.0100 #### [facility] [address] [facility] [address] [place], [address] Eosinophil percentageOrdered By: Herman Murray on 02-22-2025 Eosinophils/100 WBC (Bld) 3.9 % 0-5 [facility] Erythrocyte distribution wid th (RBC) [Ratio]Ordered By: Herman Murray on 02-22-2025 Erythrocyte distribution width (RBC) [Entitic vol] 45.7 fL High 35.1-43.9 [facility] Erythrocyte distribution wid th ratioOrdered By: Herman Murray on 02-22-2025 Erythrocyte distribution width (RBC) [Ratio] 13.2 % 11.6-14.6 [facility] Erythrocyte distribution wid th standard deviationOrdered By: Herman Murray on 02-22-2025 Erythrocyte distribution width (RBC) [Ratio] 45.7 fl High 35.1-43.9 [facility] GFR/1.73 sq M.predicted swetha g non-blacks MDRD (S/P/Bld) [Vol rate/Area]Ordered By: Herman Murray on 02-22-2025 Estimated GFR (MDRD) Non-Af Amer 77 >60 [facility] Comment on above: mL/min/1.73m2 CKD-EP I Creatinine Equation (2020) Glomerular filtration rate ( GFR) estimation/1.73 sq m using serum, plasma, or whole bOrdered By: Herman Murray on 02-22-2025 GFR/1.73 sq M.predicted among non-blacks MDRD (S/P/Bld) [Vol rate/Area] 77 mL/min/{1.73_m2} >60 [facility] Comment on above: mL/min/1.73m2 CKD-EP I Creatinine Equation (2020) Hemoglobin A1con 02-22-2025 HbA1c (Bld) [Mass fraction] 5.6 % Normal <=5.6 [facility] Comment on above: Order Comment: CMP C BCD (DUPLICATE FOR BOTH DRS)-[facility] OTHER TESTS-TERRI Result Comment: Norm al < 5.7 % Prediabetic 5.7 - 6.4 % Diabetic >or= 6.5 % Please note range changes. Performed By: #### L 500.4100, L501.9520, L500.4050, L501.9985, L501.5200, L503.0106, L100.0100 #### [facility] [place], [address] Hemoglobin A1c percentageOrd ered By: Herman Murray on 02-22-2025 HbA1c (Bld) [Mass fraction] 5.6 % <5.7 [facility] Comment on above: Normal < 5.7 % Predi abetic 5.7 - 6.4 % Diabetic >or= 6.5 % Please note range changes. Hemoglobin measurementOrdere d By: Herman Murray on 02-22-2025 Hemoglobin (Bld) [Mass/Vol] 13.9 g/dL 12.0-15.0 [facility] Immature granulocytes/100 WB C Auto (Bld)Ordered By: Herman Murray on 02-22-2025 Immature granulocytes/100 WBC (Bld) 0.200 % 0.0-0.9 [facility] Comment on above: IG% - Immature Granu locytes (promyelocytes, myelocytes and metamyelocytes) > 1% indicates that a LEFT SHIFT is Present. LDL calc ser/plason 02-23-20 25 Cholesterol in LDL [Mass/Vol] 168 mg/dL Normal [facility] Comment on above: Nldraervyz=284-896 m g/dL & Higher Xopx=364 mg/dL or greater Order Comment: CMP C BCD (DUPLICATE FOR BOTH DRS)-[facility] OTHER TESTS-TERRI Result Comment: Bord tvdkoo=040-692 mg/dL Higher Nuaa=524 mg/dL or greater Performed By: #### L 500.4100, L501.9520, L500.4050, L501.9985, L501.5200, L503.0106, L100.0100 #### [facility] [address] [place], [place], [address] LDL calc ser/plasOrdered By: Herman Murray on 02-22-2025 LDL Cholesterol, Calculated 168 mg/dL [facility] Comment on above: Bulihskaem=055-612 m g/dL & Higher Kdjj=818 mg/dL or greater LIPID PANEL (OUTSIDE)on 02-09 LDL:HDL Ratio [facility] Non-HDL Cholesterol [facility] TC:HDL Ratio [facility] VLDL Cholesterol [facility] - Chemistry and C hemistry - challengeOrdered By: Herman Murray on 02-22-2025 AST [Catalytic activity/Vol] 31 U/L <32 [facility] Lipid Profileon 02-22-2025 CHOL:HDL 4.00 Normal [facility] Comment on above: Order Comment: CMP C BCD (DUPLICATE FOR BOTH DRS)-[facility] OTHER TESTS-TERRI Performed By: #### L 500.4100, L501.9520, L500.4050, L501.9985, L501.5200, L503.0106, L100.0100 #### [facility] [address] [place], [address] Cholesterol [Mass/Vol] 259 mg/dL High <=200 [facility] Comment on above: Order Comment: CMP C BCD (DUPLICATE FOR BOTH DRS)-[facility] OTHER TESTS-TERRI Result Comment: Chol esterol level, Desirable <200 mg/dL Borderline high cholesterol 200-239 mg/dL High cholesterol >=240 mg/dL Recommendations of the NCEP Adult Treatment Panel for the following risk-cutoff thresholds for the [place] population. Performed By: #### L 500.4100, L501.9520, L500.4050, L501.9985, L501.5200, L503.0106, L100.0100 #### [facility] [address] [place], [address] Cholesterol in HDL [Mass/Vol] 65 mg/dL Normal [facility] Comment on above: Order Comment: CMP C BCD (DUPLICATE FOR BOTH DRS)-[facility] OTHER TESTS-TERRI Result Comment: Tara onal Cholesterol Education Program (NCEP) guidelines: <40 mg/dL: Low HDL-cholesterol (major risk factor for CHD) >= 60 mg/dL: High HDL-cholesterol (negative risk factor for CHD) HDL-cholesterol is affected by a number of factors, e.g. smoking, exercise, hormones, sex and age. Performed By: #### L 500.4100, L501.9520, L500.4050, L501.9985, L501.5200, L503.0106, L100.0100 #### [facility] [address] [place], [place], [id number] Cholesterol in VLDL [Mass/Vol] 26 mg/dL Normal 5-40 [facility] Comment on above: Order Comment: CMP C BCD (DUPLICATE FOR BOTH DRS)-[facility] OTHER TESTS-TERRI Performed By: #### L 500.4100, L501.9520, L500.4050, L501.9985, L501.5200, L503.0106, L100.0100 #### [facility] [address] [facility] [place], [id number] (955) Triglyceride [Mass/Vol] 131 mg/dL Normal [facility] Comment on above: Order Comment: CMP C BCD (DUPLICATE FOR BOTH DRS)-[facility] OTHER TESTS-TERRI Result Comment: The drugs N-Acetylcysteine and Metamizole may falsely depress this assay. Normal range: <150 mg/dL Borderline High: 150-199 mg/dL High: 200-499 mg/dL Very High: >500 mg/dL Performed By: #### L 500.4100, L501.9520, L500.4050, L501.9985, L501.5200, L503.0106, L100.0100 #### [facility] [address] [place], [place], [id number] Lymphocytes Auto (Unsp spec) [#/Vol]Ordered By: Herman Murray on 02-22-2025 Lymphocytes (Bld) [#/Vol] 2.65 10*3/uL 0.83-4.51 [facility] Lymphocytes/100 WBC Auto (Un sp spec)Ordered By: Herman Murray on 02-22-2025 Lymphocytes/100 WBC (Bld) 58.0 % High 19-41 [facility] MCV (mean corpuscular volume ) determinationOrdered By: Herman Murray on 02-22-2025 MCV (RBC) [Entitic vol] 94.7 fL 81-99 [facility] Magnesiumon 02-22-2025 Magnesium [Mass/Vol] 2.1 mg/dL Normal 1.5-2.2 [facility] Comment on above: Order Comment: CMP C BCD (DUPLICATE FOR BOTH DRS)-[facility] OTHER TESTS-TERRI Performed By: #### L 500.4100, L501.9520, L500.4050, L501.9985, L501.5200, L503.0106, L100.0100 #### [facility] [address] [place], [place], [id number] Magnesium (Unsp spec) [Mass/ Vol]Ordered By: Herman Murray on 02-22-2025 Magnesium [Mass/Vol] 2.1 mg/dL 1.5-2.2 [facility] Magnesium [Mass/Vol]on 02-22 Magnesium.plasma/Magnes ium.RBC (Bld) [Molar ratio] 2.1 1.5 - 2.2 [facility] Magnesium measurement (mass/ volume)Ordered By: Herman Murray on 02-22-2025 Magnesium (Unsp spec) [Mass/Vol] 2.1 mg/dL 1.5-2.2 [facility] Mean corpuscular hemoglobin (MCH) determinationOrdered By: Herman Murray on 02-22-2025 MCH (RBC) [Entitic mass] 32.0 pg 27.0-32.0 [facility] Mean corpuscular hemoglobin concentration (MCHC) determinationOrdered By: Herman Murray on 02-22-2025 MCHC (RBC) [Mass/Vol] 33.7 g/dL 32-36 [facility] Mean platelet volume determi nationOrdered By: Herman Murray on 02-22-2025 Platelet mean volume (Bld) [Entitic vol] 10.9 fL 6.2-12.0 [facility] Monocyte percentageOrdered B y: Herman Murray on 02-22-2025 Monocytes/100 WBC (Bld) 9.0 % 0-10 [facility] Neutrophil percentageOrdered By: Herman Murray on 02-22-2025 Neutrophils/100 WBC (Bld) 27.8 % Low 47-70 [facility] No Panel Informationon 02-22 Interpretation and review of laboratory results Abnormal [facility] Nucleated red blood cell per centageOrdered By: Herman Murray on 02-22-2025 Nucleated RBC/100 WBC (Bld) [Ratio] 0 % 0-5 [facility] Platelet countOrdered By: Herbert Murray on 02-22-2025 Platelets (Bld) [#/Vol] 199 10*3/uL 150-450 [facility] Potassium measurement (mass/ volume)Ordered By: Herman Murray on 02-22-2025 Potassium (Unsp spec) [Mass/Vol] 3.5 mmol/L 3.3-5.1 [facility] Potassium [Moles/Vol] 3.5 mmol/L 3.5 - 5.1 mmol/L [facility] Screening total cholesterol/ high density lipoprotein (HDL) cholesterol ratioOrdered By: Herman Murray on 02-22-2025 Cholesterol.total/Dinorah sterol in HDL [Mass ratio] 4.00 {ratio} [facility] Serum creatinine measurement (mass/volume)Ordered By: Herman Murray on 02-22-2025 Creatinine [Mass/Vol] 0.88 mg/dL 0.70-1.20 [facility] Serum globulin measurementOr dered By: eHrman Murray on 02-22-2025 Globulin (S) [Mass/Vol] 2.1 g/dL Low 2.2-4.2 [facility] Serum glucose measurement (m ass/volume)Ordered By: Herman Murray on 02-22-2025 Glucose [Mass/Vol] 101 mg/dL High 70-[address] [facility] Serum or plasma alanine robertson otransferase (ALT) measurementOrdered By: Herman Murray on 02-22-2025 ALT [Catalytic activity/Vol] 43 U/L High <35 [facility] Serum or plasma albumin ron urement (mass/volume)Ordered By: Herman Murray on 02-22-2025 Albumin [Mass/Vol] 4.5 g/dL 3.5-5.[address] [facility] Serum or plasma albumin/glob ulin mass ratioOrdered By: Herman Murray on 02-22-2025 Albumin/Globulin [Mass ratio] 2.1 {ratio} 0.9-2.4 [facility] Serum or plasma alkaline cristela sphatase measurementOrdered By: Herman Murray on 02-22-2025 ALP [Catalytic activity/Vol] 58 U/L 35-104 [facility] Serum or plasma calcium ron urement (mass/volume)Ordered By: Herman Murray on 02-22-2025 Calcium [Mass/Vol] 9.1 mg/dL 7.6-11.[address] [facility] Serum or plasma cholesterol in HDL measurement (mass/volume)Ordered By: Herman Murray on 02-22-2025 Cholesterol in HDL [Mass/Vol] 65 mg/dL >40 [facility] Comment on above: National Cholesterol Education Program (NCEP) guidelines:<40 mg/dL: Low HDL-cholesterol (major risk factor for CHD)>= 60 mg/dL: High HDL-cholesterol (negative risk factor for CHD)HDL-cholesterol is affected by a number of factors, e.g. smoking, exercise, hormones, sex and age. Serum or plasma cholesterol measurement (mass/volume)Ordered By: Herman Murray on 02-22-2025 Cholesterol [Mass/Vol] 259 mg/dL High <201 [facility] Comment on above: Cholesterol level, D esirable <200 mg/dLBorderline high cholesterol 200-239 mg/dLHigh cholesterol >=240 mg/dLRecommendations of the NCEP Adult Treatment Panel for the following risk-cutoff thresholds for the [place] population. Serum or plasma urea nitroge n measurement (mass/volume)Ordered By: Herman Murray on 02-22-2025 Urea nitrogen [Mass/Vol] 10 mg/dL 4-19 [facility] Sodium levelOrdered By: Beka Murray on 02-22-2025 Sodium [Moles/Vol] 140 mmol/L 133-[address] [facility] TSH (EXTERNAL)on 02-22-2025 TSH Qn 1.16 m[IU]/L [facility] TSH DL <= 0.005 mIU/L QnOrde red By: Herman Murray on 02-22-2025 Thyroid Stimulating Hormone (TSH) 1.160 uIU/mL 0.300-4.200 [facility] TSH Qn 1.160 uIU/mL 0.300-4.200 [facility] Thyroid Stim Hormone (TSH)on 02-22-2025 TSH 1.160 uIU/mL Normal 0.300-4.200 [facility] Comment on above: Order Comment: CMP C BCD (DUPLICATE FOR BOTH DRS)-[facility] OTHER TESTS-TERRI Performed By: #### L 500.4100, L501.9520, L500.4050, L501.9985, L501.5200, L503.0106, L100.0100 #### [facility] [address] [place], [place], [id number] Total proteinOrdered By: Sal Murray on 02-22-2025 Protein [Mass/Vol] 6.6 g/dL 5.9-8.[address] [facility] Triglycerides measurementOrd ered By: Herman Murray on 02-22-2025 Triglyceride [Mass/Vol] 131 mg/dL <199 [facility] Comment on above: The drugs N-Acetylcy steine and Metamizole may falsely depress this assay. Normal range: <150 mg/dLBorderline High: 150-199 mg/dLHigh: 200-499 mg/dLVery High: >500 mg/dL Vitamin B12on 02-22-2025 Cobalamin (Vitamin B12) [Mass/Vol] 723 pg/mL Normal 180-914 [facility] Comment on above: Order Comment: CMP C BCD (DUPLICATE FOR BOTH DRS)-[facility] OTHER TESTS-TERRI Performed By: #### L 500.4100, L501.9520, L500.4050, L501.9985, L501.5200, L503.0106, L100.0100 #### [facility] [address] [place], [place], [id number] Vitamin B12 ser/plasOrdered By: Herman Murray on 02-22-2025 Cobalamin (Vitamin B12) [Mass/Vol] 723 pg/mL 180-914 [facility] White blood cell (WBC) count Ordered By: Herman Murray on 02-22-2025 WBC (Bld) [#/Vol] 4.6 10*3/uL 4.4-11.[address] [facility] [address] [facility] MAKENZIE SCREENING W TOMOon 02-19 MAKENZIE SCREENING W KALEIGH * * *Final Report* * * DATE OF EXAM: Feb 19 2025 9:23AM [id number] [id number] - MAKENZIE SCREENING W K[place] / PROCEDURE REASON: Encounter for screening mammogram for breast cancer * * * * Physician Interpretation * * * * RESULT: [facility] [address] [place] [address] #[id number] - MAKENZIE SCREENING W K[place] HISTORY: 59 year-old patient seen for screening. Patient is asymptomatic in both breasts. Patient states no personal history of breast cancer. COMPARISON STUDIES: The present examination has been compared to prior imaging studies dated 07/07/2018 (mammogram), 07/08/2019 (mammogram), 09/08/2020 (mammogram), 01/12/2022 (mammogram) and 02/26/2023 (mammogram). MAMMOGRAM TECHNIQUE: The study was acquired using full field digital technology and interpreted from soft copy. Digital Breast Tomosynthesis (DBT) images were obtained and used to assist in the interpretation of this examination. MAMMOGRAM FINDINGS: There are scattered areas of fibroglandular density. No suspicious masses, calcifications or other abnormalities are seen in either breast. There are no significant interval changes. IMPRESSION: There is no mammographic evidence of malignancy in either breast. Routine screening mammogram is recommended. Annual mammogram will be due in 1 year. BI-RADS Category 1: Negative RISK: Based on the Tyrer-Cuzick (TC) risk assessment model, this patient has a 6.8% lifetime risk of developing breast cancer, meaning they are at average risk for developing breast cancer. However, this is only an estimate based on available history provided on the patient's questionnaire. We encourage all patients to talk with their providers about these results, further recommendations for managing breast health, and appropriate supplemental screening options if the patient has dense breast tissue. Interpreting Radiologist: Linette Loera M.D. Electronically signed on: 02/22/2025 Trampoline Team Coach: SYDNIE Transcribe Date/Time: Feb 19 2025 9:11A Dictated by: LINETTE LOERA MD This examination was interpreted and the report reviewed and electronically signed by: LINETTE LOERA MD on Feb 22 2025 12:53PM EST [id number] Normal [facility] US THYROID/PARATHYROIDon US THYROID/PARATHYROID * * *Final Report * * * DATE OF EXAM: Feb 18 2025 8:24AM [facility] [id number] - US THYROID/PARATHYROID / PROCEDURE REASON: Multiple thyroid nodules * * * * Physician Interpretation * * * * EXAMINATION: THYROID ULTRASOUND CLINICAL HISTORY: Multiple thyroid nodules TECHNIQUE: Sonography and Doppler imaging of the thyroid was performed. Images were obtained and stored in a permanent archive. MQ: UST_1 COMPARISON: Ultrasound 01/15/2020 RESULT: . Right Lobe: 4.7 cm x 1.6 cm x 1.2 cm Left Lobe: 4.3 cm x 1.4 cm x 1.2 cm Isthmus: 0.2 cm Parenchyma: Mild diffuse parenchymal heterogeneity. Expected vascularity. NODULES: Most suspicious nodules (up to 4) detailed below: Nodule #1 Location: Left midpole/lower pole-medially Size: 1.7 x 1.1 x 0.7 cm; similar to prior study when it measured 1.6 x 1 x 0.6 cm Characteristics: Vascularity especially peripherally present Composition: Solid or almost completely solid, 2 points Echogenicity: Hypoechoic, 2 points Shape: [id number], 0 points Margin: Smooth, 0 points Echogenic foci: None, 0 points TI-RADS Category: 4 ACR Recommendation: FNA is recommended. Multiple additional tiny nodules again seen. - IMPRESSION: Thyroid nodule appears similar to the prior study and again has features for which FNA is recommended although it is now stable for 5 years. ACR Recommendation: TI-RADS 4 nodule greater than 1.5 cm. FNA is recommended. ACR recommendations are strictly based on the size and imaging appearance at the time of the exam and do not consider stability or previous biopsy results. Trampoline Team Coach: PSCB Transcribe Date/Time: Feb 20 2025 6:18A Dictated by : CELESTE LINDSAY MD This examination was interpreted and the report reviewed and electronically signed by: CELESTE LINDSAY MD on Feb 20 2025 6:20AM EST [id number] Normal [facility] CNOVon 02-17-2025 CNOV Office Visit (FAMPWS ) EMILIA HENSLEY ([id number]) 1965 F Date Time Provider Department 02/17/25 9:00 AM HERMAN MURRAY During your visit today, we recorded the following information about you: Pulse Respiration Blood pressure Weight 86/minute 18/minute 138/84 80.3 kg Height 1.562 m Herman Murray MD 02/17/2025 5:42 PM Signed Chief Complaint Patient presents with: Physical HPI Emilia Hensley is a 59 year old female who presents here today for Physical. Patient with hx of RA seeing Rheum, GERD, trigeminal neuralgia, multiple thyroid nodules, IBS, and those as reviewed below. Patient continues to see Dr. Varghese for her RA and she had placed her on prn tramadol. Patient not using. Patient has been doing better since last being seen. No new issues or concerns. Past medical history, appointments, medications, allergies reviewed. Previous Medical History PAST MEDICAL HISTORY Diagnosis Date Carpal tunnel syndrome, right 02/13/2024 Closed fracture of distal end of right radius with malunion 02/13/202405/2023: Seen Cindy Null at [facility] Complex regional pain syndrome type 1 of right upper extremity 02/13/2024 After injury to the wrist 05/2023. Seen by hand specilist Dr. Null ([facility]) COVID-19 virus infection 11/27/202111/2021 Encounter for lipid screening for cardiovascular disease 02/13/2024 Fatty liver 01/07/2023 Per US done 12/2022 per Rheum for elevated LFT's GERD without esophagitis 06/25/2018 History of COVID-19 11/27/202111/2021 IBS (irritable bowel syndrome) 09/22/2015 Multiple thyroid nodules 01/06/2019 Neck pain 03/05/2013 Obesity, Class I, BMI 30-34.9 02/15/2022 PAIN JOINT, ELBOW 05/21/2008 Rheumatoid arthritis involving multiple sites with positive rheumatoid factor (HCC) 01/23/[address] Varghese Trigeminal neuralgia 03/05/2013 Believe it was humara related. Well adult exam 11/14/2017 last done: 12/31/2018 Previous Surgical History PAST SURGICAL HISTORY Procedure Laterality Date 2D ECHO (EXEP) 03/12/2017 EF=65%, no valve issues ADENOIDECTOMY PRIMARY Adenoidectomy CARDIAC CATH 03/13/2017 normal vessels COLONOSCOPY FLX DX W/COLLJ SPEC WHEN PFRMD 09/03/2013 normal, repeat due 2022 ESOPHAGOGASTRODUODENOS COPY TRANSORAL DIAGNOSTIC 09/03/2013 chronic gastritis LAPAROSCOPY SURG CHOLECYSTECTOMY 02/15/2022 TONSILLECTOMY PRIMARY/SECONDARY Tonsillectomy Family History FAMILY HISTORY Problem Relation Age of Onset Breast Cancer Mother Diabetes Mother Cancer Father not known Heart disease Sister Hypertension Sister Diabetes Sister Hyperlipidemia Sister Thyroid Sister Alzheimer's Disease No Family History Colon Cancer No Family History Prostate Cancer No Family History Ovarian cancer No Family History Coronary Artery Disease No Family History Kidney Disease No Family History Seizures No Family History Stroke No Family History Patient Allergies ALLERGIES Allergen Reactions Quinones Hives Penicillins Other: See Comments Rash and swelling Adhesive Tape-Silic* Rash Pneumovax 23 [Pneum* Other: See Comments Back headache, Arm pain for 5 days Current Medications Current Outpatient Medications on File Prior to Visit Medication Sig albuterol (PROVENTIL) 2.5 mg /3 mL (0.083 %) nebulizer solution Use 3 mL via nebulizer as directed. ADMINISTER PER WEIGHT /AGE DIRECTED predniSONE (DELTASONE) 5 mg tablet As needed, Dr. Perdomo traMADol (ULTRAM) 50 mg tablet Take 50 mg by mouth three times a day as needed. Prescribed by Dr. Perdomo leucovorin (LEUCOVORIN) 5 mg tablet Take 3 Tablet(s) Oral once a week methotrexate 2.5 mg tablet 6 TABLETS once each week. esomeprazole magnesium (NEXIUM 24HR) 22.3 mg cpDR Take 1 capsule by mouth once daily. Per Dr. Varghese FOLIC ACID ORAL Take by mouth twice daily. Not sure of mg multivits w-ca,fe,other min(ONE-A-DAY WOMENS FORMULA 27 MG-0.4 MG TAB) Take one(1) tablet daily. acetaminophen(TYLENOL EXTRA STRENGTH 500 MG TAB) as necessary for pain. use as directed No current facility-administered medications on file prior to visit. Social History Social History Tobacco Use Smoking status: Never Smokeless tobacco: Never Vaping Use Vaping status: Never Used Substance Use Topics Alcohol use: No Drug use: No Review of Symptoms REVIEW OF SYSTEMS GENERAL: No weight loss, malaise or fevers HEENT: Negative for frequent or significant headaches, No changes in vision, no nose bleeds or other nasal problems. Slight decreased hearing. NECK: Negative for lumps, goiter, pain and significant neck swelling RESPIRATORY: Negative for cough, hemoptysis, wheezing, COPD, dyspnea or shortness of breath CARDIOVASCULAR: Negative for chest pain, leg swelling, hypertension, CHF or palpitations GI: No nausea, vomiting, or diarrhea, No heartburn or reflux symptoms, a (more content not included)... Normal [facility] CNOVon 12-24-2024 CNOV Office Visit (FAMLizzieWS ) EMILIA HENSLEY ([id number]) 1965 F Date Time Provider Department 12/24/24 11:00 AM HERMAN MURRAY During your visit today, we recorded the following information about you: Pulse Blood pressure Weight Height 78/minute 124/78 79.8 kg 1.562 m Herman Murray MD 12/24/2024 11:12 AM Signed Chief Complaint Patient presents with: Cough HPI Emilia Hensley is a 58 year old female who presents here today for follow up on cough. Patient seen in the [facility] ER for cough and ER follow up 12/18/2024. Patient was given nebulizer treatment in office and given Levaquin and decadron. Patient feels the cough is improving. She has had no issues with the meds she was placed on. No fevers. Cough slightly productive with just clear/white mucus. No longer colored. The cough does not keep her up at night like it had been. Her breathing has also improved. She still has the antibiotic and decadron to complete. Past medical history, appointments, medications, allergies reviewed. Previous Medical History PAST MEDICAL HISTORY Diagnosis Date Carpal tunnel syndrome, right 02/13/2024 Closed fracture of distal end of right radius with malunion 02/13/202405/2023: Seen Cindy Null at [facility] Complex regional pain syndrome type 1 of right upper extremity 02/13/2024 After injury to the wrist 05/2023. Seen by hand specilist Dr. Null ([facility]) COVID-19 virus infection 11/27/202111/2021 Encounter for lipid screening for cardiovascular disease 02/13/2024 Fatty liver 01/07/2023 Per US done 12/2022 per Rheum for elevated LFT's GERD without esophagitis 06/25/2018 History of COVID-19 11/27/202111/2021 IBS (irritable bowel syndrome) 09/22/2015 Multiple thyroid nodules 01/06/2019 Neck pain 03/05/2013 Obesity, Class I, BMI 30-34.9 02/15/2022 PAIN JOINT, ELBOW 05/21/2008 Rheumatoid arthritis involving multiple sites with positive rheumatoid factor (HCC) 01/23/[address] Varghese Trigeminal neuralgia 03/05/2013 Believe it was humara related. Well adult exam 11/14/2017 last done: 12/31/2018 Previous Surgical History PAST SURGICAL HISTORY Procedure Laterality Date 2D ECHO (EXEP) 03/12/2017 EF=65%, no valve issues ADENOIDECTOMY PRIMARY Adenoidectomy CARDIAC CATH 03/13/2017 normal vessels COLONOSCOPY FLX DX W/COLLJ SPEC WHEN PFRMD 09/03/2013 normal, repeat due 2022 ESOPHAGOGASTRODUODENOS COPY TRANSORAL DIAGNOSTIC 09/03/2013 chronic gastritis LAPAROSCOPY SURG CHOLECYSTECTOMY 02/15/2022 TONSILLECTOMY PRIMARY/SECONDARY Tonsillectomy Family History FAMILY HISTORY Problem Relation Age of Onset Breast Cancer Mother Diabetes Mother Cancer Father not known Heart disease Sister Hypertension Sister Diabetes Sister Hyperlipidemia Sister Thyroid Sister Alzheimer's Disease No Family History Colon Cancer No Family History Prostate Cancer No Family History Ovarian cancer No Family History Coronary Artery Disease No Family History Kidney Disease No Family History Seizures No Family History Stroke No Family History Patient Allergies ALLERGIES Allergen Reactions Quinones Hives Penicillins Other: See Comments Rash and swelling Adhesive Tape-Silic* Rash Pneumovax 23 [Pneum* Other: See Comments Back headache, Arm pain for 5 days Current Medications Current Outpatient Medications on File Prior to Visit Medication Sig albuterol (PROVENTIL) 2.5 mg /3 mL (0.083 %) nebulizer solution Use 3 mL via nebulizer as directed. ADMINISTER PER WEIGHT /AGE DIRECTED levoFLOXacin (LEVAQUIN) 500 mg tablet Take 1 tablet by mouth once daily for 10 days. dexAMETHasone (DECADRON) 6 mg tablet Take 1 tablet by mouth once daily for 10 days. predniSONE (DELTASONE) 5 mg tablet As needed, Dr. Perdomo traMADol (ULTRAM) 50 mg tablet Take 50 mg by mouth three times a day as needed. Prescribed by Dr. Perdomo leucovorin (LEUCOVORIN) 5 mg tablet Take 3 Tablet(s) Oral once a week methotrexate 2.5 mg tablet 6 TABLETS once each week. esomeprazole magnesium (NEXIUM 24HR) 22.3 mg cpDR Take 1 capsule by mouth once daily. Per Dr. Varghese FOLIC ACID ORAL Take by mouth twice daily. Not sure of mg multivits w-ca,fe,other min(ONE-A-DAY WOMENS FORMULA 27 MG-0.4 MG TAB) Take one(1) tablet daily. acetaminophen(TYLENOL EXTRA STRENGTH 500 MG TAB) as necessary for pain. use as directed No current facility-administered medications on file prior to visit. Social History Social History Tobacco Use Smoking status: Never Smokeless tobacco: Never Vaping Use Vaping status: Never Used Substance Use Topics Alcohol use: No Drug use: No Review of Symptoms REVIEW OF SYSTEMS See HPI EXAM: BP 124/78 Pulse 78 Ht 156.2 cm (5' 1.5) Wt 79.8 kg (176 lb) LMP 04/20/2019 (Approximate) BMI 32.72 kg/m? General Appearance: Well appearing, alert, in no acute distr (more content not included)... Normal [facility] CNOVon 12-18-2024 CNOV Office Visit (FAMPWS ) EMILIA HENSLEY ([id number]) 1965 F Date Time Provider Department 12/18/24 11:20 AM HERMAN MURRAY During your visit today, we recorded the following information about you: Pulse Respiration Blood pressure Weight 79/minute 20/minute 118/92 80.3 kg Herman Murray MD 12/18/2024 4:40 PM Signed Chief Complaint Patient presents with: ER F/U HPI Emilia Hensley is a 58 year old female who presents here today for ER Follow Up.. Patient was sent home on prednisone 20 mg two day for 4 days and tessalon. Prior to the development of the cough she had headache, ear pain, face was tender on the left, throat hurt, N/V and diarrhea. Denies current wheezing or chest feeling tight. Past medical history, appointments, medications, allergies reviewed. Previous Medical History PAST MEDICAL HISTORY Diagnosis Date Carpal tunnel syndrome, right 02/13/2024 Closed fracture of distal end of right radius with malunion 02/13/202405/2023: Seen [facility] then Dr. Null at [facility] Complex regional pain syndrome type 1 of right upper extremity 02/13/2024 After injury to the wrist 05/2023. Seen by hand specilist Dr. Null ([facility]) COVID-19 virus infection 11/27/202111/2021 Encounter for lipid screening for cardiovascular disease 02/13/2024 Fatty liver 01/07/2023 Per US done 12/2022 per Rheum for elevated LFT's GERD without esophagitis 06/25/2018 History of COVID-19 11/27/202111/2021 IBS (irritable bowel syndrome) 09/22/2015 Multiple thyroid nodules 01/06/2019 Neck pain 03/05/2013 Obesity, Class I, BMI 30-34.9 02/15/2022 PAIN JOINT, ELBOW 05/21/2008 Rheumatoid arthritis involving multiple sites with positive rheumatoid factor (HCC) 01/23/[address] Varghese Trigeminal neuralgia 03/05/2013 Believe it was humara related. Well adult exam 11/14/2017 last done: 12/31/2018 Previous Surgical History PAST SURGICAL HISTORY Procedure Laterality Date 2D ECHO (EXEP) 03/12/2017 EF=65%, no valve issues ADENOIDECTOMY PRIMARY Adenoidectomy CARDIAC CATH 03/13/2017 normal vessels COLONOSCOPY FLX DX W/COLLJ SPEC WHEN PFRMD 09/03/2013 normal, repeat due 2022 ESOPHAGOGASTRODUODENOS COPY TRANSORAL DIAGNOSTIC 09/03/2013 chronic gastritis LAPAROSCOPY SURG CHOLECYSTECTOMY 02/15/2022 TONSILLECTOMY PRIMARY/SECONDARY Tonsillectomy Family History FAMILY HISTORY Problem Relation Age of Onset Breast Cancer Mother Diabetes Mother Cancer Father not known Heart disease Sister Hypertension Sister Diabetes Sister Hyperlipidemia Sister Thyroid Sister Alzheimer's Disease No Family History Colon Cancer No Family History Prostate Cancer No Family History Ovarian cancer No Family History Coronary Artery Disease No Family History Kidney Disease No Family History Seizures No Family History Stroke No Family History Patient Allergies ALLERGIES Allergen Reactions Quinones Hives Penicillins Other: See Comments Rash and swelling Adhesive Tape-Silic* Rash Pneumovax 23 [Pneum* Other: See Comments Back headache, Arm pain for 5 days Current Medications Current Outpatient Medications on File Prior to Visit Medication Sig benzonatate (TESSALON PERLE) 100 mg capsule Take 1 capsule by mouth every 8 hours as needed for cough for up to 15 days. predniSONE (DELTASONE) 5 mg tablet As needed, Dr. Perdomo traMADol (ULTRAM) 50 mg tablet Take 50 mg by mouth three times a day as needed. Prescribed by Dr. Perdomo leucovorin (LEUCOVORIN) 5 mg tablet Take 3 Tablet(s) Oral once a week methotrexate 2.5 mg tablet 6 TABLETS once each week. abatacept 125 mg/mL esomeprazole magnesium (NEXIUM 24HR) 22.3 mg cpDR Take 1 capsule by mouth once daily. Per Dr. Varghese FOLIC ACID ORAL Take by mouth twice daily. Not sure of mg multivits w-ca,fe,other min(ONE-A-DAY WOMENS FORMULA 27 MG-0.4 MG TAB) Take one(1) tablet daily. acetaminophen(TYLENOL EXTRA STRENGTH 500 MG TAB) as necessary for pain. use as directed No current facility-administered medications on file prior to visit. Social History Social History Tobacco Use Smoking status: Never Smokeless tobacco: Never Vaping Use Vaping status: Never Used Substance Use Topics Alcohol use: No Drug use: No Review of Symptoms REVIEW OF SYSTEMS See HPI EXAM: BP 118/92 Pulse 79 Resp 20 Wt 80.3 kg (177 lb) LMP 04/20/2019 (Approximate) SpO2 96% BMI 32.90 kg/m? General Appearance: Well appearing, alert, in no acute distress, well-hydrated, well nourished.. Eyes: Anicteric sclera. Pupils are equally round and reactive to light. Extraocular movements are intact. . Ears: External ears, TM's normal, canals clear. Nose/Sinuses: Nares normal, septum midline, mucosa normal, no drainage. Increase pain to palpation over the left maxillary sinus compared to her baseline. Oropharynx: Lips, mucosa, and tongue nor (more content not included)... Normal [facility] CNPNon 12-18-2024 [facility] EMILIA HENSLEY ([id number]) 1965 F Date Time Provider Department 12/18/24 YEN MARTINEZ [facility] During your visit today, we recorded the following information about you: Yen Martinez APRN.[facility] 12/18/2024 3:05 PM Signed Please let patient know their xray is normal. Kirti Kilgore MA 12/18/2024 3:10 PM Signed Pt notified. Kirti Kilgore MA Allergies As of Date: 12/18/2024 Noted Allergy Reaction QUINONES 12/23/2023 4 - Hives PENICILLINS 12/12/2005 14 - Other: See Comments Comments: Rash and swelling ADHESIVE TAPE-SILICONES 02/26/2022 2 - Rash PNEUMOVAX 23 (PNEUMOCOCCAL 23-MATI*06/25/2018 14 - Other: See Comments Comments: Back headache, Arm pain for 5 days Date Reviewed: 12/05/2024 Reviewed by: Rola Bull MA - Fully Assessed Reason for Visit: Results [95] Prescriptions as of 12/18/2024 - albuterol (PROVENTIL) 2.5 mg /3 mL (0.083 %) nebulizer solution Use 3 mL via nebulizer as directed. ADMINISTER PER WEIGHT /AGE DIRECTED - levoFLOXacin (LEVAQUIN) 500 mg tablet Take 1 tablet by mouth once daily for 10 days. - dexAMETHasone (DECADRON) 6 mg tablet Take 1 tablet by mouth once daily for 10 days. - benzonatate (TESSALON PERLE) 100 mg capsule Take 1 capsule by mouth every 8 hours as needed for cough for up to 15 days. - predniSONE (DELTASONE) 5 mg tablet As needed, Dr. Perdomo - traMADol (ULTRAM) 50 mg tablet Take 50 mg by mouth three times a day as needed. Prescribed by Dr. Perdomo - leucovorin (LEUCOVORIN) 5 mg tablet Take 3 Tablet(s) Oral once a week - methotrexate 2.5 mg tablet 6 TABLETS once each week. - abatacept 125 mg/mL - esomeprazole magnesium (NEXIUM 24HR) 22.3 mg cpDR Take 1 capsule by mouth once daily. Per Dr. Varghese - FOLIC ACID ORAL Take by mouth twice daily. Not sure of mg - multivits w-ca,fe,other min(ONE-A-DAY WOMENS FORMULA 27 MG-0.4 MG TAB) Take one(1) tablet daily. - acetaminophen(TYLENOL EXTRA STRENGTH 500 MG TAB) as necessary for pain. use as directed Problem List As Of Date 12/18/2024 Noted Resolved Routine general medical examination at a [facility]*04/26/2008 11/28/2015 PAIN JOINT, ELBOW [M25.529] 05/21/2008 Rheumatoid arthritis involving multiple sites w*01/23/2013 Trigeminal neuralgia [G50.0] 03/05/2013 Neck pain [M54.2] 03/05/2013 IBS (irritable bowel syndrome) [K58.9] 09/22/2015 Visit for routine cigarette package examiner exam [Z01.419] 09/22/2015 11/28/2015 Well adult exam [Z00.00] 09/22/2015 11/28/2015 Need for lipid screening [Z13.220] 09/22/2015 11/28/2015 Screening for diabetes mellitus (DM) [Z13.1] 09/22/2015 11/28/2015 Encounter for screening for diabetes mellitus [*05/03/2017 Well adult exam [Z00.00] 11/14/2017 Encounter for screening mammogram for breast ca*06/25/2018 GERD without esophagitis [K21.9] 06/25/2018 Medication management [Z79.899] 06/25/2018 Screening for colon cancer [Z12.11] 12/31/2018 Multiple thyroid nodules [E04.2] 01/06/2019 History of COVID-19 [Z86.16] 11/27/2021 Obesity, Class I, BMI 30-34.9 [E66.811] 02/15/2022 Fatty liver [K76.0] 01/07/2023 Complex regional pain syndrome type 1 of right *02/13/2024 Closed fracture of distal end of right radius w*02/13/2024 Carpal tunnel syndrome, right [G56.01] 02/13/2024 Encounter Status:Closed by KIRTI KILGORE on 12/18/24 Normal [facility] XR CHEST 2V FRONTAL/LATon XR CHEST 2V FRONTAL/LAT * * *Final Repor t* * * DATE OF EXAM: Dec 18 2024 12:51PM WOX [id number] - XR CHEST 2V FRONTAL/LAT / PROCEDURE REASON: multiple diagnoses * * * * Physician Interpretation * * * * EXAMINATION: CHEST RADIOGRAPH (2 VIEW FRONTAL and LATERAL) CLINICAL HISTORY: Persistent cough Sinobronchitis MQ: XC2_6 EXAM DATE/TIME: 12/18/2024 12:51 PM COMPARISON: No relevant prior studies available. RESULT: Lines, tubes, and devices: None. Lungs and pleura: No consolidation. No lung mass. No pleural effusion. No pneumothorax. Cardiomediastinal silhouette: Normal cardiomediastinal silhouette. Bones and soft tissues: Unremarkable. IMPRESSION: No acute radiographic abnormality. Trampoline Team Coach: PSCB Transcribe Date/Time: Dec 18 2024 12:52P Dictated by : EMILY CIFUENTES MD This examination was interpreted and the report reviewed and electronically signed by: EMILY CIFUENTES MD on Dec 18 2024 12:53PM EST [id number] Normal [facility] XR Chest PA and Lateralon IMPRESSION: No acute radiographic abnormality. Trampoline Team Coach: PSCB Transcribe Date/Time: Dec 18 2024 12:52P Dictated by : EMILY ICFUENTES MD This examination was interpreted and the report reviewed and electronically signed by: EMILY CIFUENTES MD on Dec 18 2024 12:53PM [facility] DIVISION OF RADIOLOGY * * *Final Report* * * DATE OF EXAM: Dec 18 2024 12:51PM WOX [id number] - XR CHEST 2V FRONTAL/LAT / PROCEDURE REASON: multiple diagnoses * * * * Physician Interpretation * * * * EXAMINATION: CHEST RADIOGRAPH (2 VIEW FRONTAL & LATERAL) CLINICAL HISTORY: Persistent cough Sinobronchitis MQ: XC2_6 EXAM DATE/TIME: 12/18/2024 12:51 PM COMPARISON: No relevant prior studies available. RESULT: Lines, tubes, and devices: None. Lungs and pleura: No consolidation. No lung mass. No pleural effusion. No pneumothorax. Cardiomediastinal silhouette: Normal cardiomediastinal silhouette. Bones and soft tissues: Unremarkable. DIVISION OF RADIOLOGY Provider, [facility] - 12/18/2024 * * *Final Report* * * DATE OF EXAM: Dec 18 2024 12:51PM WOX [id number] - XR CHEST 2V FRONTAL/LAT / PROCEDURE REASON: multiple diagnoses * * * * Physician Interpretation * * * * EXAMINATION: CHEST RADIOGRAPH (2 VIEW FRONTAL & LATERAL) CLINICAL HISTORY: Persistent cough Sinobronchitis MQ: [id number] EXAM DATE/TIME: 12/18/2024 12:51 PM COMPARISON: No relevant prior studies available. RESULT: Lines, tubes, and devices: None. Lungs and pleura: No consolidation. No lung mass. No pleural effusion. No pneumothorax. Cardiomediastinal silhouette: Normal cardiomediastinal silhouette. Bones and soft tissues: Unremarkable. IMPRESSION IMPRESSION: No acute radiographic abnormality. Trampoline Team Coach: PSCB Transcribe Date/Time: Dec 18 2024 12:52P Dictated by : EMILY CIFUENTES MD This examination was interpreted and the report reviewed and electronically signed by: EMILY CIFUENTES MD on Dec 18 2024 12:53PM [facility] Radiology Study observation (narrative) Mitali Ann XR Chest PA and LateralOrder ed By: Ccf Provider on 12-18-2024 [facility] Chest PA and Lateralon 12-13 Chest PA and Lateral [facility] Imaging Services [address] [place] [address] Chest PA and Lateral MR#: [id number] Acct: [id number] Name: EMILIA HENSLEY Rep #: [id number] : 1965 F 58 From: Srikanth Purdy MD PCP: Dr. Herman Murray MD Status: [facility] ER Study: Chest PA and Lateral Date of Exam: 12/13/24 Exam# [id number] Ordering Dr: Jo Abarca DO PROCEDURE: CHEST PA AND LATERAL REASON FOR EXAM: Unable to catch breath. Cough for 3 weeks. TECHNIQUE: Single frontal image including the chest and upper abdomen. COMPARISON: Chest radiograph dated 05/15/2023 FINDINGS: Lungs are clear of pneumonia and congestion. No pleural effusions, thickening, or pneumothorax. Heart and mediastinum are normal. Aorta is atherosclerotic and tortuous. No hilar masses. Bones and soft tissues are unremarkable. RAD/Chest PA and Lateral IMPRESSION: No active cardiopulmonary disease. Reading Location: [facility] CC: Dr. Jo Abarca DO; Dr. Herman Murray MD Trampoline Team Coach: Signed Normal [facility] Emergency Department Summary on 12-13-2024 Emergency Department Summary [facility] Medical Records Department [address] [place] [address] Emergency Department Summary 12/13/24 MR#: [id number] Acct: [id number] Name: EMILIA HENSLEY Rep #: [id number] : 1965 58 From: Jo Abarca DO PCP: Dr. Herman Murray MD Status:[facility] ER Location: ED HPI History of Present Illness Chief Complaint: Cough Informant: patient Narrative Narrative: Patient is a 58-year-old female with history of RA (on abatacept and methotrexate) presenting with 3 weeks of cough. Patient states that her and her both had some type of respiratory illness but she continues to have a cough. She denies any history of asthma or COPD but states she has had bronchitis in the past. She is having some chest discomfort just from coughing. Denies any shortness of breath. Denies any sore throat. Denies any nausea or vomiting. No fevers or chills reported. No other complaints or concerns at this time. [facility] Medical History GERD (gastroesophageal reflux disease) Multiple thyroid nodules Rheumatoid arteritis Home Medications ???Medication ???Instructions ???Recorded ???Last Taken ???Type methotrexate sodium 2.5 mg tablet 8 tab PO Q7D 09/05/13 Unknown His tory acetaminophen 500 mg tablet 500 mg PO PRN PRN Pain 03/12/17 Un known History esomeprazole magnesium 20 mg 20 mg PO DAILY 03/12/17 Unknown Hi story tablet,delayed release folic acid 1 mg tablet 2 mg PO DAILY@0800 03/12/17 Unknow n History leucovorin calcium 15 mg tablet 15 mg PO Q7D 03/12/17 Unknown Hist ory multivitamin with folic acid 400 1 tab PO DAILY 03/12/17 Unknown Hi story mcg tablet naproxen 500 mg tablet 500 mg PO DAILY PRN PRN Pain 03/12 Unknown History lorazepam 2 mg tablet (Ativan) 2 mg PO ONCE #1 TAB 01/19/19 Unkno wn Rx abatacept 125 mg/mL subcutaneous 125 mg subcut QWEEK 07/11/20 Unkno wn History syringe (Orencia) hydroxychloroquine 200 mg tablet 200 mg PO DAILY 07/11/20 Unknown H istory (Plaquenil) hydrocodone-acetaminop hen 5-325mg 1 tab PO Q6H PRN PRN Pain 3 days 05/15/23 Unknown Rx 5mg-325mg #12 TABLETS benzonatate 200 mg capsule 200 mg PO TID PRN cough #20 caps 0 12/13/24 Unknown Rx prednisone 20 mg tablet 40 mg (2 x 20 mg) PO DAILY #8 tabs 12/13/24 Unknown Rx Allergy/AdvReac Type Severity Reaction Status Date / Time Penicillins Allergy Mild Shortness Verified 12/13/24 20:21 of breath, rash Family History Mother Diabetes Father Cancer unsure type Surgical History History of colonoscopy ( 2012) History of tonsillectomy History of wisdom tooth extraction Status post biopsy of thyroid gland ( 01/2019) Social History (Updated 12/13/24 @ 20:22 by Maureen Adams) household members: spouse housing: house Smoking Status: Never smoker ROS ROS ED Constitutional Constitutional ED: Denies chills or fever(s) ENT ENT ED: Denies rhinorrhea Cardiovascular Cardiovascular: Reports chest pain Respiratory/Chest Respiratory/Chest: Reports cough; Denies dyspnea or sputum Gastrointestinal Gastrointestinal: Denies nausea or vomiting Musculoskeletal Musculoskeletal: Denies myalgias Integumentary Denies rash EXAM Physical Exam Const Vital Signs: 12/13/24 20:18 12/13/24 20:21 12/13/24 20:36 Temperature 98.3 F Temperature Source Oral Pulse Rate 78 88 Respiratory Rate 16 20 H Respiratory Effort Normal Short of Breath Respiratory Depth Normal Respiratory Pattern Normal Tachypnea Blood Pressure 157/79 H Blood Pressure Mean 105 Pulse Ox 98 Oxygen Delivery Method Room Air 12/13/24 22:17 12/13/24 23:10 Temperature 98.2 F Temperature Source Pulse Rate 78 78 Respiratory Rate 16 Respiratory Effort Respiratory Depth Respiratory Pattern Blood Pressure 138/78 H 138/78 H Blood Pressure Mean 98 98 Pulse Ox 98 Oxygen Delivery Method Positive well nourished and well developed General Appearance ED: well developed and NAD; Negative for pallor HEENT Reports TM's clear and moist mucous membranes Tympanic Membrane ED: Yes TM's clear Eyes PERRL Neck supple and no JVD Resp normal respiratory effort Resp Narrative: Persistent bronchial cough. Rhonchorous breath sounds throughout with end expiratory wheezing noted at the right lung base Cardio regular rate, regular rhythm and no murmurs Extremity normal to inspection General Extremety ED: Negative for edema General Extremity: Negative for edema Neuro oriented x3 Sensorium / Orientation: alert Psych mental status grossly normal Skin no wounds General Skin Exam: Negative for pallo (more content not included)... [facility] ) EMILIA HENSLEY ([id number]) 1965 F Date Time Provider Department 12/05/24 8:30 AM FARHAN JOINER [facility] During your visit today, we recorded the following information about you: Temperature Pulse Respiration Blood pressure 97.9 degrees 112/minute 18/minute 140/84 Weight 80.5 kg Farhan Joiner MD 12/05/2024 8:52 AM Addendum Patient presents with: Chest Congestion: head congestion, cough x 4 days HPI: Feeling sick for 5 days. Positive symptoms: Cough, some shortness of breath, Nasal Congestion, rhinorrhea, resolved Vomiting/Diarrhea, left Earache/face pain/Sore throat, chills Negative symptoms: Fever, OTC: Cold Medicine. Last dose of methotrexate and Orencia 1 week ago. MEDICATIONS: Current Outpatient Medications Medication Sig predniSONE (DELTASONE) 5 mg tablet As needed, Dr. Perdomo traMADol (ULTRAM) 50 mg tablet Take 50 mg by mouth three times a day as needed. Prescribed by Dr. Perdomo leucovorin (LEUCOVORIN) 5 mg tablet Take 3 Tablet(s) Oral once a week methotrexate 2.5 mg tablet 6 TABLETS once each week. abatacept 125 mg/mL esomeprazole magnesium (NEXIUM 24HR) 22.3 mg cpDR Take 1 capsule by mouth once daily. Per Dr. Varghese FOLIC ACID ORAL Take by mouth twice daily. Not sure of mg multivits w-ca,fe,other min(ONE-A-DAY WOMENS FORMULA 27 MG-0.4 MG TAB) Take one(1) tablet daily. acetaminophen(TYLENOL EXTRA STRENGTH 500 MG TAB) as necessary for pain. use as directed No current facility-administered medications for this visit. ALLERGIES: ALLERGIES Allergen Reactions Quinones Hives Penicillins Other: See Comments Rash and swelling Adhesive Tape-Silic* Rash Pneumovax 23 [Pneum* Other: See Comments Back headache, Arm pain for 5 days VITALS: BP 140/84 Pulse 112 Temp 36.6 ?C (97.9 ?F) Resp 18 Wt 80.5 kg (177 lb 7.5 oz) LMP 04/20/2019 (Approximate) SpO2 95% BMI 32.99 kg/m? PHYSICAL EXAM: GEN: mildly ill appearing, alert, no acute distress HEENT: PERRL, EOMI, conjunctiva clear Ears: canals clear. Left canal painful with light touch. TMs without erythema, bulge, or effusion Sinuses: no facial swelling or erythema Throat: moist mucous membranes, mild erythema, no exudate Neck: supple, no thyromegaly, no lymphadenopathy HEART: regular rate during my exam, regular rhythm, no murmurs LUNGS: clear to auscultation, no wheezes or crackles, no increased WOB; harsh cough ASSESSMENT/PLAN: 1. Influenza-like illness - ICD9: 487.1, ICD10: J11.1 - suspect influenza or other viral URI. She is beyond the therapeutic window for antiviral treatment and declines viral testing. Exacerbation of left trigeminal neuralgia. - Discussed supportive care treatment with rest, cold medicine, and analgesia. - BENZONATATE 100 MG CAPSULE Hold immune suppressing methotrexate and Orencia while sick. I did advise chest x-ray is available to perform today and should be performed if she has increasing chest pain, shortness of breath, or late onset fever. Farhan Joiner MD Allergies As of Date: 12/05/2024 Noted Allergy Reaction QUINONES 12/23/2023 4 - Hives PENICILLINS 12/12/2005 14 - Other: See Comments Comments: Rash and swelling ADHESIVE TAPE-SILICONES 02/26/2022 2 - Rash PNEUMOVAX 23 (PNEUMOCOCCAL 23-MATI*06/25/2018 14 - Other: See Comments Comments: Back headache, Arm pain for 5 days Date Reviewed: 12/05/2024 Reviewed by: Rola Bull MA - Fully Assessed Reason for Visit: Chest Congestion [236] Cmt: head congestion, cough x 4 days Primary Visit Diagnosis:Influenza-li ke illness [J11.1] Order(s):benzonatate (TESSALON PERLE) 100 mg capsuleTake 1 capsule by mouth every 8 hours as needed for cough for up to 15 days.Disp: 30 capsuleRfl: 0 Prescriptions as of 12/05/2024 - benzonatate (TESSALON PERLE) 100 mg capsule Take 1 capsule by mouth every 8 hours as needed for cough for up to 15 days. - predniSONE (DELTASONE) 5 mg tablet As needed, Dr. Perdomo - traMADol (ULTRAM) 50 mg tablet Take 50 mg by mouth three times a day as needed. Prescribed by Dr. Perdomo - leucovorin (LEUCOVORIN) 5 mg tablet Take 3 Tablet(s) Oral once a week - methotrexate 2.5 mg tablet 6 TABLETS once each week. - abatacept 125 mg/mL - esomeprazole magnesium (NEXIUM 24HR) 22.3 mg cpDR Take 1 capsule by mouth once daily. Per Dr. Varghese - FOLIC ACID ORAL Take by mouth twice daily. Not sure of mg - multivits w-ca,fe,other min(ONE-A-DAY WOMENS FORMULA 27 MG-0.4 MG TAB) Take one(1) tablet daily. - acetaminophen(TYLENOL EXTRA STRENGTH 500 MG TAB) as necessary for pain. use as directed Problem List As Of Date 12/05/2024 Noted Resolved Routine general medical examination at health*04/26/2008 11/28/2015 PAIN JOINT, ELBOW [M25.529] 05/21/2008 Rheumatoid arthritis involving multiple sites w*01/23/2013 Trigeminal neuralgia [G50.0] 03/05/2013 Neck richard (more content not included)... Normal [facility] Absolute lymphocyte countOrd ered By: Мария Perdomo on 12-01-2024 Lymphocytes Auto (Unsp spec) [#/Vol] 3.24 10*3/uL 0.83-4.51 [facility] Absolute neutrophil countOrd ered By: Мария Perdomo on 12-01-2024 Neutrophils (Bld) [#/Vol] 1.4 10*3/uL Low 2.0-7.7 [facility] Albumin to globulin ratioOrd ered By: Мария Perdomo on 12-01-2024 Albumin/Globulin [Mass ratio] 1.2 {ratio} 0.9-2.4 [facility] Automated lymphocyte count a s percentage of total leukocytesOrdered By: Мария Perdomo on 12-01-2024 Lymphocytes/100 WBC Auto (Unsp spec) 62.8 % High 19-41 [facility] Basophil percentageOrdered B y: Мария Perdomo on 12-01-2024 Basophils/100 WBC (Bld) 0.8 % 0-1 [facility] Bilirubin, totalOrdered By: Мария Perdomo on 12-01-2024 Bilirubin [Mass/Vol] 0.40 mg/dL 0.20-1.00 [facility] Comment on above: For patients on eltr ombopag therapy, use of Dimension [place] TBIL is not recommended. Blood urea nitrogen (BUN)/cr eatinine ratioOrdered By: Мария Perdomo on 12-01-2024 Urea nitrogen/Creatinine [Mass ratio] 16.3 mg/mg 10- [facility] CBC W/Diff, Automatedon 11-12 Absolute Lymph 3.24 X10 3/uL Normal 0.83-4.51 [facility] Comment on above: Performed By: #### L 100.0100, L500.4050 #### [facility] [address] [place], [address] Absolute Neut 1.4 X10 3/uL Low 2.0-7.7 [facility] Comment on above: Performed By: #### L 100.0100, L500.4050 #### [facility] [address] [place], [address] Basophils/100 WBC (Bld) 0.8 % Normal 0-1 [facility] Comment on above: Performed By: #### L 100.0100, L500.4050 #### [facility] [address] [place], [address] Eosinophils/100 WBC (Bld) 2.9 % Normal 0-5 [facility] Comment on above: Performed By: #### L 100.0100, [id number] #### [facility] [address] [place], [address] Erythrocyte distribution width (RBC) [Ratio] 14.3 % Normal 11.6-14.6 [facility] Comment on above: Performed By: #### L 100.0100, [id number] #### [facility] [address] [place], [address] Hematocrit (Bld) [Volume fraction] 42.2 % Normal 37-47 [facility] Comment on above: Performed By: #### L 100.0100, L500.4050 #### [facility] [address] [place], [address] Hemoglobin (Bld) [Mass/Vol] 13.8 g/dL Normal 12.0-15.0 [facility] Comment on above: Performed By: #### L 100.0100, L500.4050 #### [facility] [address] [place], [address] IG% 0.200 Normal 0.0-0.9 [facility] Comment on above: Result Comment: IG% - Immature Granulocytes (promyelocytes, myelocytes and metamyelocytes) > 1% indicates that a LEFT SHIFT is Present. Performed By: #### L 100.0100, L500.4050 #### [facility] [address] [place], [address] Lymphocytes/100 WBC (Bld) 62.8 % High 19-41 [facility] Comment on above: Performed By: #### L 100.0100, L500.4050 #### [facility] [address] [place], [address] MCH (RBC) [Entitic mass] 30.7 pg Normal 27.0-32.0 [facility] Comment on above: Performed By: #### L 100.0100, L500.4050 #### [facility] [address] [place], [address] MCHC (RBC) [Mass/Vol] 32.7 g/dL Normal 32-36 [facility] Comment on above: Performed By: #### L 100.0100, [id number] #### [facility] [address] [place], [address] MCV (RBC) [Entitic vol] 93.8 fL Normal 81-99 [facility] Comment on above: Performed By: #### L 100.0100, [id number] #### [facility] [address] [place], [address] Monocytes/100 WBC (Bld) 7.2 % Normal 0-10 [facility] Comment on above: Performed By: #### L 100.0100, [id number] #### [facility] [address] [place], [address] Neutrophils/100 WBC (Bld) 26.1 % Low 47-70 [facility] Comment on above: Performed By: #### L 100.0100, L500.4050 #### [facility] [address] [place], [address] Nucleated RBC (Bld) [#/Vol] 0 10*3/uL Normal 0-5 [facility] Comment on above: Performed By: #### L 100.0100, [id number] #### [facility] [address] [place], [address] Platelet mean volume (Bld) [Entitic vol] 10.5 fL Normal 6.2-12.0 [facility] Comment on above: Performed By: #### L 100.0100, [id number] #### [facility] [address] [place], [address] Platelets (Bld) [#/Vol] 204 10*3/uL Normal 150-450 [facility] Comment on above: Performed By: #### L 100.0100, [id number] #### [facility] [address] [place], [address] RBC (Bld) [#/Vol] 4.50 10*6/uL Normal 4.2-5.4 [facility] Comment on above: Performed By: #### L 100.0100, L500.4050 #### [facility] [address] [place], [address] RDW SD 49.4 fl High 35.1-43.9 [facility] Comment on above: Performed By: #### L 100.0100, L500.4050 #### [facility] [address] [place], [address] WBC (Bld) [#/Vol] 5.2 10*3/uL Normal 4.4-11.[address] [facility] Comment on above: Performed By: #### L 100.0100, L500.4050 #### [facility] [address] [place], [address] Carbon dioxide measurementOr dered By: Мария Perdomo on 12-01-2024 CO2 [Moles/Vol] 29.0 mmol/L 21.0-32.0 [facility] Chloride measurementOrdered By: Мария Perdomo on 12-01-2024 Chloride [Moles/Vol] 107 mmol/L 98-107 [facility] Comprehensive Metabolic Prof ilon 12-01-2024 Albumin [Mass/Vol] 4.0 g/dL Normal 3.2-5.[address] [facility] Comment on above: Performed By: #### L 100.0100, L500.4050 #### [facility] [address] [place], [address] Albumin/Globulin [Mass ratio] 1.2 {ratio} Normal 0.9-2.4 [facility] Comment on above: Performed By: #### L 100.0100, L500.4050 #### [facility] [address] [place], [address] ALK P 59 U/L Normal 45-117 [facility] Comment on above: Performed By: #### L 100.0100, L500.4050 #### [facility] [address] [place], [address] ALT [Catalytic activity/Vol] 53 U/L Normal 13-56 [facility] Comment on above: Performed By: #### L 100.0100, L500.4050 #### [facility] [address] [place], [address] AST [Catalytic activity/Vol] 24 U/L Normal 15-37 [facility] Comment on above: Performed By: #### L 100.0100, L500.4050 #### [facility] [address] [place], [address] Bilirubin [Mass/Vol] 0.40 mg/dL Normal 0.20-1.00 [facility] Comment on above: Result Comment: For patients on eltrombopag therapy, use of Dimension [place] TBIL is not recommended. Performed By: #### L 100.0100, L500.4050 #### [facility] [address] [place], [address] BUN/CRE 16.3 RATIO Normal 10-20 [facility] Comment on above: Performed By: #### L 100.0100, L500.4050 #### [facility] [address] [place], [address] CA,Total 9.0 mg/dL Normal 8.5-10.1 [facility] Comment on above: Performed By: #### L 100.0100, L500.4050 #### [facility] [address] [place], [address] Chloride [Moles/Vol] 107 mmol/L Normal 98-107 [facility] Comment on above: Performed By: #### L 100.0100, L500.4050 #### [facility] [address] [place], [address] CO2 [Moles/Vol] 29.0 mmol/L Normal 21.0-32.0 [facility] Comment on above: Performed By: #### L 100.0100, L500.4050 #### [facility] [address] [place], [address] Creatinine [Mass/Vol] 0.92 mg/dL Normal 0.55-1.02 [facility] Comment on above: Result Comment: The validity of the calculated GFR GFRAA in patients over 70 years has not been determined. Clinical correlation is essential. Performed By: #### L 100.0100, L500.4050 #### [facility] [address] [place], [address] EST GFR - AA 81 mL/min Normal >60 [facility] Comment on above: Result Comment: Afri can Argentine GFR Calc Performed By: #### L 100.0100, L500.4050 #### [facility] [address] [place], [address] GAP 2 Low 5-15 [facility] Comment on above: Performed By: #### L 100.0100, L500.4050 #### [facility] [address] [place], [address] GFR/1.73 sq M.predicted among non-blacks MDRD (S/P/Bld) [Vol rate/Area] 67 mL/min/{1.73_m2} Normal >60 [facility] Comment on above: Result Comment: Non- GFR Calc Performed By: #### L 100.0100, L500.4050 #### [facility] [address] [place], [address] Globulin (S) [Mass/Vol] 3.2 g/dL Normal 2.2-4.2 [facility] Comment on above: Performed By: #### L 100.0100, L500.4050 #### [facility] [address] [place], [address] Glucose [Mass/Vol] 116 mg/dL High 74-[address] [facility] Comment on above: Result Comment: Fast ing Glucose result from 100 to 125 mg/dL suggests IMPAIRED HOMEOSTASIS per A.D.A. criteria. Performed By: #### L 100.0100, L500.4050 #### [facility] [address] [place], [address] Potassium [Moles/Vol] 3.7 mmol/L Normal 3.5-5.1 [facility] Comment on above: Performed By: #### L 100.0100, L500.4050 #### [facility] [address] [place], [address] Sodium [Moles/Vol] 138 mmol/L Normal 136-[address] [facility] Comment on above: Performed By: #### L 100.0100, L500.4050 #### [facility] [address] [place], [address] T PROT 7.2 g/dL Normal 6.4-8.2 [facility] Comment on above: Performed By: #### L 100.0100, L500.4050 #### [facility] [address] [place], [address] Urea nitrogen [Mass/Vol] 15 mg/dL Normal 7-18 [facility] Comment on above: Performed By: #### L 100.0100, L500.4050 #### [facility] [address] [place], [address] Eosinophil percentageOrdered By: Мария Perdomo on 12-01-2024 Eosinophils/100 WBC (Bld) 2.9 % 0-5 [facility] Erythrocyte distribution wid th (RBC) [Ratio]Ordered By: Мария Perdomo on 12-01-2024 Erythrocyte distribution width (RBC) [Entitic vol] 49.4 fL High 35.1-43.9 [facility] Erythrocyte distribution wid th ratioOrdered By: Мария Perdomo on 12-01-2024 Erythrocyte distribution width (RBC) [Ratio] 14.3 % 11.6-14.6 [facility] Erythrocyte distribution wid th standard deviationOrdered By: Мария Perdomo on 12-01-2024 Erythrocyte distribution width (RBC) [Ratio] 49.4 fl High 35.1-43.9 [facility] Estimated glomerular filtrat ion rate (GFR) AmericanOrdered By: Мария Perdomo on 12-01-2024 Estimated GFR (MDRD) Amer 81 mL/min >60 [facility] Comment on above: GFR Calc Glomerular filtration rate ( GFR) estimationOrdered By: Мария Perdomo on 12-01-2024 Estimated GFR (MDRD) Non-Af Amer 67 mL/min >60 [facility] Comment on above: Non- GFR Calc GFR/1.73 sq M.predicted among non-blacks MDRD (S/P/Bld) [Vol rate/Area] 67 mL/min/{1.73_m2} >60 [facility] Comment on above: Non- GFR Calc Glucose measurementOrdered B y: Мария Perdomo on 12-01-2024 Glucose [Mass/Vol] 116 mg/dL High 74-[address] [facility] Comment on above: Fasting Glucose resu lt from 100 to 125 mg/dL suggests IMPAIRED HOMEOSTASIS per A.D.A. criteria. Hematocrit Auto (Bld) [Volum e fraction]Ordered By: Мария Perdomo on 12-01-2024 Hematocrit (Bld) [Volume fraction] 42.2 % 37-47 [facility] Hemoglobin measurementOrdere d By: Мария Perdomo on 12-01-2024 Hemoglobin (Bld) [Mass/Vol] 13.8 g/dL 12.0-15.0 [facility] Immature granulocytes/100 WB C Auto (Bld)Ordered By: Мария Perdomo on 12-01-2024 Immature granulocytes/100 WBC (Bld) 0.200 % 0.0-0.9 [facility] Comment on above: IG% - Immature Granu locytes (promyelocytes, myelocytes and metamyelocytes) > 1% indicates that a LEFT SHIFT is Present. Laboratory - Chemistry and C hemistry - challengeOrdered By: Мария Perdomo on 12-01-2024 AST [Catalytic activity/Vol] 24 U/L 15-37 [facility] Lymphocytes Auto (Unsp spec) [#/Vol]Ordered By: Мария Perdomo on 12-01-2024 Lymphocytes (Bld) [#/Vol] 3.24 10*3/uL 0.83-4.51 [facility] Lymphocytes/100 WBC Auto (Un sp spec)Ordered By: Мария Perdomo on 12-01-2024 Lymphocytes/100 WBC (Bld) 62.8 % High 19-41 [facility] MCV (mean corpuscular volume ) determinationOrdered By: Мраия Perdomo on 12-01-2024 MCV (RBC) [Entitic vol] 93.8 fL 81-99 [facility] Mean corpuscular hemoglobin (MCH) determinationOrdered By: Мария Perdomo on 12-01-2024 MCH (RBC) [Entitic mass] 30.7 pg 27.0-32.0 [facility] Mean corpuscular hemoglobin concentration (MCHC) determinationOrdered By: Мария Perdomo on 12-01-2024 MCHC (RBC) [Mass/Vol] 32.7 g/dL 32-36 [facility] Mean platelet volume determi nationOrdered By: Мария Perdomo on 12-01-2024 Platelet mean volume (Bld) [Entitic vol] 10.5 fL 6.2-12.0 [facility] Monocyte percentageOrdered B y: Мария Perdomo on 12-01-2024 Monocytes/100 WBC (Bld) 7.2 % 0-10 [facility] Neutrophil percentageOrdered By: Мария Perdomo on 12-01-2024 Neutrophils/100 WBC (Bld) 26.1 % Low 47-70 [facility] Nucleated red blood cell per centageOrdered By: Мария Perdomo on 12-01-2024 Nucleated RBC/100 WBC (Bld) [Ratio] 0 % 0-5 [facility] Platelet countOrdered By: Kitty Perdomo on 12-01-2024 Platelets (Bld) [#/Vol] 204 10*3/uL 150-450 [facility] Potassium measurementOrdered By: Мария Perdomo on 12-01-2024 Potassium [Moles/Vol] 3.7 mmol/L 3.5-5.1 [facility] RBC Auto (Bld) [#/Vol]Ordere d By: Мария Perdomo on 12-01-2024 RBC (Bld) [#/Vol] 4.50 10*6/uL 4.2-5.4 [facility] Serum anion gap measurementO rdered By: Мария Perdomo on 12-01-2024 Anion gap [Moles/Vol] 2 mmol/L Low 5-15 [facility] Serum globulin measurementOr dered By: Мария Perdomo on 12-01-2024 Globulin (S) [Mass/Vol] 3.2 g/dL 2.2-4.2 [facility] Serum or plasma alanine robertson otransferase (ALT) measurementOrdered By: Мария Perdomo on 12-01-2024 ALT [Catalytic activity/Vol] 53 U/L 13-56 [facility] Serum or plasma albumin ron urement (mass/volume)Ordered By: Мария Perdomo on 12-01-2024 Albumin [Mass/Vol] 4.0 g/dL 3.2-5.[address] [facility] Serum or plasma alkaline cristela sphatase measurementOrdered By: Мария Perdomo on 12-01-2024 ALP [Catalytic activity/Vol] 59 U/L 45-117 [facility] Serum or plasma calcium ron urement (mass/volume)Ordered By: Мария Perdomo on 12-01-2024 Calcium [Mass/Vol] 9.0 mg/dL 8.5-10.[address] [facility] Serum or plasma creatinine m easurement (mass/volume)Ordered By: Мария Perdomo on 12-01-2024 Creatinine [Mass/Vol] 0.92 mg/dL 0.55-1.02 [facility] Comment on above: The validity of the calculated GFR & GFRAA in patients over 70 years has not been determined. Clinical correlation is essential. Serum or plasma urea nitroge n measurement (mass/volume)Ordered By: Мария Perdomo on 12-01-2024 Urea nitrogen [Mass/Vol] 15 mg/dL 7-18 [facility] Sodium levelOrdered By: Vira Perdomo on 12-01-2024 Sodium [Moles/Vol] 138 mmol/L 136-[address] [facility] Total proteinOrdered By: Joshua Perdomo on 12-01-2024 Protein [Mass/Vol] 7.2 g/dL 6.4-8.[address] [facility] White blood cell (WBC) count Ordered By: Мария Perdomo on 12-01-2024 WBC (Bld) [#/Vol] 5.2 10*3/uL 4.4-11.[address] [facility] Absolute neutrophil countOrd ered By: Мария Perdomo on 10-29-2024 Neutrophils (Bld) [#/Vol] 1.4 10*3/uL Low 2.0-7.7 [facility] Albumin to globulin ratioOrd ered By: Мария Perdomo on 10-29-2024 Albumin/Globulin [Mass ratio] 1.5 {ratio} 0.9-2.4 [facility] Basophil percentageOrdered B y: Мария Perdomo on 10-29-2024 Basophils/100 WBC (Bld) 0.8 % 0-1 [facility] Bilirubin, totalOrdered By: Мария Perdomo on 10-29-2024 Bilirubin [Mass/Vol] 0.50 mg/dL 0.20-1.00 [facility] Comment on above: For patients on eltr ombopag therapy, use of Dimension [place] TBIL is not recommended. Blood urea nitrogen (BUN)/cr eatinine ratioOrdered By: Мария Perdomo on 10-29-2024 Urea nitrogen/Creatinine [Mass ratio] 12.1 mg/mg 10-20 [facility] CBC W/Diff, Automatedon 10-11 Absolute Lymph 3.25 X10 3/uL Normal 0.83-4.51 [facility] Comment on above: Performed By: #### L 100.0100, L500.4050 #### [facility] [address] [place], [address] Absolute Neut 1.4 X10 3/uL Low 2.0-7.7 [facility] Comment on above: Performed By: #### L 100.0100, L500.4050 #### [facility] [address] [place], [address] Basophils/100 WBC (Bld) 0.8 % Normal 0-1 [facility] Comment on above: Performed By: #### L 100.0100, L500.4050 #### [facility] [address] [place], [address] Eosinophils/100 WBC (Bld) 1.7 % Normal 0-5 [facility] Comment on above: Performed By: #### L 100.0100, L500.4050 #### [facility] [address] [place], [address] Erythrocyte distribution width (RBC) [Ratio] 14.6 % Normal 11.6-14.6 [facility] Comment on above: Performed By: #### L 100.0100, L500.4050 #### [facility] [address] [place], [address] Hematocrit (Bld) [Volume fraction] 42.2 % Normal 37-47 [facility] Comment on above: Performed By: #### L 100.0100, L500.4050 #### [facility] [address] [place], [address] Hemoglobin (Bld) [Mass/Vol] 14.0 g/dL Normal 12.0-15.0 [facility] Comment on above: Performed By: #### L 100.0100, L500.4050 #### [facility] [address] [place], [address] IG% 0.200 Normal 0.0-0.9 [facility] Comment on above: Result Comment: IG% - Immature Granulocytes (promyelocytes, myelocytes and metamyelocytes) > 1% indicates that a LEFT SHIFT is Present. Performed By: #### L 100.0100, L500.4050 #### [facility] [address] [place], [address] Lymphocytes/100 WBC (Bld) 62.5 % High 19-41 [facility] Comment on above: Performed By: #### L 100.0100, L500.4050 #### [facility] [address] [place], [address] MCH (RBC) [Entitic mass] 30.3 pg Normal 27.0-32.0 [facility] Comment on above: Performed By: #### L 100.0100, L500.4050 #### [facility] [address] [place], [address] MCHC (RBC) [Mass/Vol] 33.2 g/dL Normal 32-36 [facility] Comment on above: Performed By: #### L 100.0100, L500.4050 #### [facility] [address] [place], [address] MCV (RBC) [Entitic vol] 91.3 fL Normal 81-99 [facility] Comment on above: Performed By: #### L 100.0100, L500.4050 #### [facility] [address] [place], [address] Monocytes/100 WBC (Bld) 7.1 % Normal 0-10 [facility] Comment on above: Performed By: #### L 100.0100, L500.4050 #### [facility] [address] [place], [address] Neutrophils/100 WBC (Bld) 27.7 % Low 47-70 [facility] Comment on above: Performed By: #### L 100.0100, L500.4050 #### [facility] [address] [place], [address] Nucleated RBC (Bld) [#/Vol] 0 10*3/uL Normal 0-5 [facility] Comment on above: Performed By: #### L 100.0100, L500.4050 #### [facility] [address] [place], [address] Platelet mean volume (Bld) [Entitic vol] 10.6 fL Normal 6.2-12.0 [facility] Comment on above: Performed By: #### L 100.0100, L500.4050 #### [facility] [address] [place], [address] Platelets (Bld) [#/Vol] 201 10*3/uL Normal 150-450 [facility] Comment on above: Performed By: #### L 100.0100, L500.4050 #### [facility] [address] [place], [address] RBC (Bld) [#/Vol] 4.62 10*6/uL Normal 4.2-5.4 [facility] Comment on above: Performed By: #### L 100.0100, L500.4050 #### [facility] [address] [place], [address] RDW SD 48.2 fl High 35.1-43.9 [facility] Comment on above: Performed By: #### L 100.0100, L500.4050 #### [facility] [address] [place], [address] WBC (Bld) [#/Vol] 5.2 10*3/uL Normal 4.4-11.[address] [facility] Comment on above: Performed By: #### L 100.0100, L500.4050 #### [facility] [address] [place], [address] Carbon dioxide measurementOr dered By: Мария Perdomo on 10-29-2024 CO2 [Moles/Vol] 27.0 mmol/L 21.0-32.0 [facility] Chloride measurementOrdered By: Мария Perdomo on 10-29-2024 Chloride [Moles/Vol] 107 mmol/L 98-107 [facility] Comprehensive Metabolic Prof ilon 10-29-2024 Albumin [Mass/Vol] 4.3 g/dL Normal 3.2-5.[address] [facility] Comment on above: Performed By: #### L 100.0100, L500.4050 #### [facility] [address] [place], [address] Albumin/Globulin [Mass ratio] 1.5 {ratio} Normal 0.9-2.4 [facility] Comment on above: Performed By: #### L 100.0100, L500.4050 #### [facility] [address] [place], [address] ALK P 61 U/L Normal 45-117 [facility] Comment on above: Performed By: #### L 100.0100, L500.4050 #### [facility] [address] [place], [address] ALT [Catalytic activity/Vol] 61 U/L High 13-56 [facility] Comment on above: Performed By: #### L 100.0100, L500.4050 #### [facility] [address] [place], [address] AST [Catalytic activity/Vol] 30 U/L Normal 15-37 [facility] Comment on above: Performed By: #### L 100.0100, L500.4050 #### [facility] [address] [place], [address] Bilirubin [Mass/Vol] 0.50 mg/dL Normal 0.20-1.00 [facility] Comment on above: Result Comment: For patients on eltrombopag therapy, use of Dimension [place] TBIL is not recommended. Performed By: #### L 100.0100, L500.4050 #### [facility] [address] [place], [address] BUN/CRE 12.1 RATIO Normal 10-20 [facility] Comment on above: Performed By: #### L 100.0100, L500.4050 #### [facility] [address] [place], [address] CA,Total 9.1 mg/dL Normal 8.5-10.1 [facility] Comment on above: Performed By: #### L 100.0100, L500.4050 #### [facility] [address] [place], [address] Chloride [Moles/Vol] 107 mmol/L Normal 98-107 [facility] Comment on above: Performed By: #### L 100.0100, L500.4050 #### [facility] [address] [place], [address] CO2 [Moles/Vol] 27.0 mmol/L Normal 21.0-32.0 [facility] Comment on above: Performed By: #### L 100.0100, L500.4050 #### [facility] [address] [place], [address] Creatinine [Mass/Vol] 0.99 mg/dL Normal 0.55-1.02 [facility] Comment on above: Result Comment: The validity of the calculated GFR GFRAA in patients over 70 years has not been determined. Clinical correlation is essential. Performed By: #### L 100.0100, L500.4050 #### [facility] [address] [place], [address] EST GFR - AA 74 mL/min Normal >60 [facility] Comment on above: Result Comment: Afri can [place] GFR Calc Performed By: #### L 100.0100, L500.4050 #### [facility] [address] [place], [address] GAP 4 Low 5-15 [facility] Comment on above: Performed By: #### L 100.0100, L500.4050 #### [facility] [address] [place], [address] GFR/1.73 sq M.predicted among non-blacks MDRD (S/P/Bld) [Vol rate/Area] 61 mL/min/{1.73_m2} Normal >60 [facility] Comment on above: Result Comment: Non- GFR Calc Performed By: #### L 100.0100, L500.4050 #### [facility] [address] [place], [address] Globulin (S) [Mass/Vol] 2.9 g/dL Normal 2.2-4.2 [facility] Comment on above: Performed By: #### L 100.0100, L500.4050 #### [facility] [address] [place], [address] Glucose [Mass/Vol] 111 mg/dL High 74-[address] [facility] Comment on above: Result Comment: Fast ing Glucose result from 100 to 125 mg/dL suggests IMPAIRED HOMEOSTASIS per A.D.A. criteria. Performed By: #### L 100.0100, L500.4050 #### [facility] [address] [place], [address] Potassium [Moles/Vol] 3.3 mmol/L Low 3.5-5.1 [facility] Comment on above: Performed By: #### L 100.0100, L500.4050 #### [facility] [address] [place], [address] Sodium [Moles/Vol] 138 mmol/L Normal 136-[address] [facility] Comment on above: Performed By: #### L 100.0100, L500.4050 #### [facility] [address] [place], [address] T PROT 7.2 g/dL Normal 6.4-8.2 [facility] Comment on above: Performed By: #### L 100.0100, L500.4050 #### [facility] [address] [place], [address] Urea nitrogen [Mass/Vol] 12 mg/dL Normal 7-18 [facility] Comment on above: Performed By: #### L 100.0100, L500.4050 #### [facility] [address] [place], [address] Eosinophil percentageOrdered By: Мария Perdomo on 10-29-2024 Eosinophils/100 WBC (Bld) 1.7 % 0-5 [facility] Erythrocyte distribution wid th (RBC) [Ratio]Ordered By: Мария Perdomo on 10-29-2024 Erythrocyte distribution width (RBC) [Entitic vol] 48.2 fL High 35.1-43.9 [facility] Erythrocyte distribution wid th ratioOrdered By: Марияcristóbal Perdomo on 10-29-2024 Erythrocyte distribution width (RBC) [Ratio] 14.6 % 11.6-14.6 [facility] Estimated glomerular filtrat ion rate (GFR) AmericanOrdered By: Мария Perdomo on 10-29-2024 Estimated GFR (MDRD) Amer 74 mL/min >60 [facility] Comment on above: GFR Calc Glomerular filtration rate ( GFR) estimationOrdered By: Мария Perdomo on 10-29-2024 Estimated GFR (MDRD) Non-Af Amer 61 mL/min >60 [facility] Comment on above: Non- GFR Calc Glucose measurementOrdered B y: Мария Perdomo on 10-29-2024 Glucose [Mass/Vol] 111 mg/dL High 74-[address] [facility] Comment on above: Fasting Glucose resu lt from 100 to 125 mg/dL suggests IMPAIRED HOMEOSTASIS per A.D.A. criteria. Hematocrit Auto (Bld) [Volum e fraction]Ordered By: Мария Perdomo on 10-29-2024 Hematocrit (Bld) [Volume fraction] 42.2 % 37-47 [facility] Hemoglobin measurementOrdere d By: Мария Perdomo on 10-29-2024 Hemoglobin (Bld) [Mass/Vol] 14.0 g/dL 12.0-15.0 [facility] Immature granulocytes/100 WB C Auto (Bld)Ordered By: Мария Perdomo on 10-29-2024 Immature granulocytes/100 WBC (Bld) 0.200 % 0.0-0.9 [facility] Comment on above: IG% - Immature Granu locytes (promyelocytes, myelocytes and metamyelocytes) > 1% indicates that a LEFT SHIFT is Present. Laboratory - Chemistry and C hemistry - challengeOrdered By: Мария Perdoom on 10-29-2024 AST [Catalytic activity/Vol] 30 U/L 15-37 [facility] Lymphocytes Auto (Unsp spec) [#/Vol]Ordered By: Марияcristóbal Perdomo on 10-29-2024 Lymphocytes (Bld) [#/Vol] 3.25 10*3/uL 0.83-4.51 [facility] Lymphocytes/100 WBC Auto (Un sp spec)Ordered By: Мария Perdomo on 10-29-2024 Lymphocytes/100 WBC (Bld) 62.5 % High 19-41 [facility] MCV (mean corpuscular volume ) determinationOrdered By: Мария Perdomo on 10-29-2024 MCV (RBC) [Entitic vol] 91.3 fL 81-99 [facility] Mean corpuscular hemoglobin (MCH) determinationOrdered By: Мария Perdomo on 10-29-2024 MCH (RBC) [Entitic mass] 30.3 pg 27.0-32.0 [facility] Mean corpuscular hemoglobin concentration (MCHC) determinationOrdered By: Мария Perdomo on 10-29-2024 MCHC (RBC) [Mass/Vol] 33.2 g/dL 32-36 [facility] Mean platelet volume determi nationOrdered By: Мария Perdomo on 10-29-2024 Platelet mean volume (Bld) [Entitic vol] 10.6 fL 6.2-12.0 [facility] Monocyte percentageOrdered B y: Мария Perdomo on 10-29-2024 Monocytes/100 WBC (Bld) 7.1 % 0-10 [facility] Neutrophil percentageOrdered By: Мария Perdomo on 10-29-2024 Neutrophils/100 WBC (Bld) 27.7 % Low 47-70 [facility] Nucleated red blood cell per centageOrdered By: Мраия Perdomo on 10-29-2024 Nucleated RBC/100 WBC (Bld) [Ratio] 0 % 0-5 [facility] Platelet countOrdered By: Kitty Perdomo on 10-29-2024 Platelets (Bld) [#/Vol] 201 10*3/uL 150-450 [facility] Potassium measurementOrdered By: Мария Perdomo on 10-29-2024 Potassium [Moles/Vol] 3.3 mmol/L Low 3.5-5.1 [facility] RBC Auto (Bld) [#/Vol]Ordere d By: Мария Perdomo on 10-29-2024 RBC (Bld) [#/Vol] 4.62 10*6/uL 4.2-5.4 [facility] Serum anion gap measurementO rdered By: Мария Perdomo on 10-29-2024 Anion gap [Moles/Vol] 4 mmol/L Low 5-15 [facility] Serum globulin measurementOr dered By: Мария Perdomo on 10-29-2024 Globulin (S) [Mass/Vol] 2.9 g/dL 2.2-4.2 [facility] Serum or plasma alanine robertson otransferase (ALT) measurementOrdered By: Мария Perdomo on 10-29-2024 ALT [Catalytic activity/Vol] 61 U/L High 13-56 [facility] Serum or plasma albumin ron urement (mass/volume)Ordered By: Мария Perdomo on 10-29-2024 Albumin [Mass/Vol] 4.3 g/dL 3.2-5.[address] [facility] Serum or plasma alkaline cristela sphatase measurementOrdered By: Мария Perdomo on 10-29-2024 ALP [Catalytic activity/Vol] 61 U/L 45-117 [facility] Serum or plasma calcium ron urement (mass/volume)Ordered By: Мария Perdomo on 10-29-2024 Calcium [Mass/Vol] 9.1 mg/dL 8.5-10.[address] [facility] Serum or plasma creatinine m easurement (mass/volume)Ordered By: Мария Perdomo on 10-29-2024 Creatinine [Mass/Vol] 0.99 mg/dL 0.55-1.02 [facility] Comment on above: The validity of the calculated GFR & GFRAA in patients over 70 years has not been determined. Clinical correlation is essential. Serum or plasma urea nitroge n measurement (mass/volume)Ordered By: Мария Perdomo on 10-29-2024 Urea nitrogen [Mass/Vol] 12 mg/dL 7-18 [facility] Sodium levelOrdered By: Vira Perdomo on 10-29-2024 Sodium [Moles/Vol] 138 mmol/L 136-[address] [facility] Total proteinOrdered By: Joshua Perdomo on 10-29-2024 Protein [Mass/Vol] 7.2 g/dL 6.4-8.[address] [facility] White blood cell (WBC) count Ordered By: Мария Perdomo on 10-29-2024 WBC (Bld) [#/Vol] 5.2 10*3/uL 4.4-11.[address] [facility] CBC W/Diff, Automatedon 09-2 Absolute Lymph 2.82 X10 3/uL Normal 0.83-4.51 [facility] Comment on above: Performed By: #### L 500.4100, L501.9520, L500.4050, L501.9985, L501.5200, L503.0106, L100.0100 #### [facility] [address] [place], [address] Absolute Neut 2.4 X10 3/uL Normal 2.0-7.7 [facility] Comment on above: Performed By: #### L 500.4100, L501.9520, L500.4050, L501.9985, L501.5200, L503.0106, L100.0100 #### [facility] [address] [place], [address] Basophils/100 WBC (Bld) 1.0 % Normal 0-1 [facility] Comment on above: Performed By: #### L 500.4100, L501.9520, L500.4050, L501.9985, L501.5200, L503.0106, L100.0100 #### [facility] [address] [place], [address] Eosinophils/100 WBC (Bld) 6.1 % High 0-5 [facility] Comment on above: Performed By: #### L 500.4100, L501.9520, L500.4050, L501.9985, L501.5200, L503.0106, L100.0100 #### [facility] [address] [place], [address] Erythrocyte distribution width (RBC) [Ratio] 13.1 % Normal 11.6-14.6 [facility] Comment on above: Performed By: #### L 500.4100, L501.9520, L500.4050, L501.9985, L501.5200, L503.0106, L100.0100 #### [facility] [address] [place], [address] Hematocrit (Bld) [Volume fraction] 41.1 % Normal 37-47 [facility] Comment on above: Performed By: #### L 500.4100, L501.9520, L500.4050, L501.9985, L501.5200, L503.0106, L100.0100 #### [facility] [address] [place], [address] Hemoglobin (Bld) [Mass/Vol] 13.2 g/dL Normal 12.0-15.0 [facility] Comment on above: Performed By: #### L 500.4100, L501.9520, L500.4050, L501.9985, L501.5200, L503.0106, L100.0100 #### [facility] [address] [place], [address] IG% 0.200 Normal 0.0-0.9 [facility] Comment on above: Result Comment: IG% - Immature Granulocytes (promyelocytes, myelocytes and metamyelocytes) > 1% indicates that a LEFT SHIFT is Present. Performed By: #### L 500.4100, L501.9520, L500.4050, L501.9985, L501.5200, L503.0106, L100.0100 #### [facility] [address] [place], [address] Lymphocytes/100 WBC (Bld) 46.7 % High 19-41 [facility] Comment on above: Performed By: #### L 500.4100, L501.9520, L500.4050, L501.9985, L501.5200, L503.0106, L100.0100 #### [facility] [address] [place], [address] MCH (RBC) [Entitic mass] 30.7 pg Normal 27.0-32.0 [facility] Comment on above: Performed By: #### L 500.4100, L501.9520, L500.4050, L501.9985, L501.5200, L503.0106, L100.0100 #### [facility] [address] [place], [address] MCHC (RBC) [Mass/Vol] 32.1 g/dL Normal 32-36 [facility] Comment on above: Performed By: #### L 500.4100, L501.9520, L500.4050, L501.9985, L501.5200, L503.0106, L100.0100 #### [facility] [address] [place], [address] MCV (RBC) [Entitic vol] 95.6 fL Normal 81-99 [facility] Comment on above: Performed By: #### L 500.4100, [id number], L500.4050, L501.9985, L501.5200, L503.0106, L100.0100 #### [facility] [address] [place], [address] Monocytes/100 WBC (Bld) 6.8 % Normal 0-10 [facility] Comment on above: Performed By: #### L 500.4100, L501.9520, L500.4050, L501.9985, L501.5200, L503.0106, L100.0100 #### [facility] [address] [place], [address] Neutrophils/100 WBC (Bld) 39.2 % Low 47-70 [facility] Comment on above: Performed By: #### L 500.4100, L501.9520, L500.4050, L501.9985, L501.5200, L503.0106, L100.0100 #### [facility] [address] [place], [address] Nucleated RBC (Bld) [#/Vol] 0 10*3/uL Normal 0-5 [facility] Comment on above: Performed By: #### L 500.4100, L501.9520, L500.4050, L501.9985, L501.5200, L503.0106, L100.0100 #### [facility] [address] [place], [address] Platelet mean volume (Bld) [Entitic vol] 10.5 fL Normal 6.2-12.0 [facility] Comment on above: Performed By: #### L 500.4100, L501.9520, L500.4050, L501.9985, L501.5200, L503.0106, L100.0100 #### [facility] [address] [place], [address] Platelets (Bld) [#/Vol] 256 10*3/uL Normal 150-450 [facility] Comment on above: Performed By: #### L 500.4100, L501.9520, L500.4050, L501.9985, L501.5200, L503.0106, L100.0100 #### [facility] [address] [place], [address] RBC (Bld) [#/Vol] 4.30 10*6/uL Normal 4.2-5.4 [facility] Comment on above: Performed By: #### L 500.4100, L501.9520, L500.4050, L501.9985, L501.5200, L503.0106, L100.0100 #### [facility] [address] [place], [address] RDW SD 45.3 fl High 35.1-43.9 [facility] Comment on above: Performed By: #### L 500.4100, L501.9520, L500.4050, L501.9985, L501.5200, L503.0106, L100.0100 #### [facility] [address] [place], [address] WBC (Bld) [#/Vol] 6.0 10*3/uL Normal 4.4-11.[address] [facility] Comment on above: Performed By: #### L 500.4100, L501.9520, L500.4050, L501.9985, L501.5200, L503.0106, L100.0100 #### [facility] [address] [place], [address] Comprehensive Metabolic Prof [facility] 08-04-2024 Albumin [Mass/Vol] 3.8 g/dL Normal 3.2-5.[address] [facility] Comment on above: Performed By: #### L 500.4100, L501.9520, L500.4050, L501.9985, L501.5200, L503.0106, L100.0100 #### [facility] [address] [place], [address] Albumin/Globulin [Mass ratio] 1.1 {ratio} Normal 0.9-2.4 [facility] Comment on above: Performed By: #### L 500.4100, L501.9520, L500.4050, L501.9985, L501.5200, L503.0106, L100.0100 #### [facility] [address] [place], [address] ALK P 80 U/L Normal 45-117 [facility] Comment on above: Performed By: #### L 500.4100, L501.9520, L500.4050, L501.9985, L501.5200, L503.0106, L100.0100 #### [facility] [address] [place], [address] ALT [Catalytic activity/Vol] 34 U/L Normal 13-56 [facility] Comment on above: Performed By: #### L 500.4100, L501.9520, L500.4050, L501.9985, L501.5200, L503.0106, L100.0100 #### [facility] [address] [place], [address] AST [Catalytic activity/Vol] 20 U/L Normal 15-37 [facility] Comment on above: Performed By: #### L 500.4100, L501.9520, L500.4050, L501.9985, L501.5200, L503.0106, L100.0100 #### [facility] [address] [place], [address] Bilirubin [Mass/Vol] 0.30 mg/dL Normal 0.20-1.00 [facility] Comment on above: Result Comment: For patients on eltrombopag therapy, use of Dimension [place] TBIL is not recommended. Performed By: #### L 500.4100, L501.9520, L500.4050, L501.9985, L501.5200, L503.0106, L100.0100 #### [facility] [address] [place], [address] BUN/CRE 10.9 RATIO Normal 10-20 [facility] Comment on above: Performed By: #### L 500.4100, L501.9520, L500.4050, L501.9985, L501.5200, L503.0106, L100.0100 #### [facility] [address] [place], [address] CA,Total 9.3 mg/dL Normal 8.5-10.1 [facility] Comment on above: Performed By: #### L 500.4100, L501.9520, L500.4050, L501.9985, L501.5200, L503.0106, L100.0100 #### [facility] [address] [place], [address] Chloride [Moles/Vol] 108 mmol/L High 98-107 [facility] Comment on above: Performed By: #### L 500.4100, L501.9520, L500.4050, L501.9985, L501.5200, L503.0106, L100.0100 #### [facility] [address] [place], [address] CO2 [Moles/Vol] 25.0 mmol/L Normal 21.0-32.0 [facility] Comment on above: Performed By: #### L 500.4100, L501.9520, L500.4050, L501.9985, L501.5200, L503.0106, L100.0100 #### [facility] [address] [place], [address] Creatinine [Mass/Vol] 0.92 mg/dL Normal 0.55-1.02 [facility] Comment on above: Result Comment: The validity of the calculated GFR GFRAA in patients over 70 years has not been determined. Clinical correlation is essential. Performed By: #### L 500.4100, L501.9520, L500.4050, L501.9985, L501.5200, L503.0106, L100.0100 #### [facility] [address] [place], [address] EST GFR - AA 81 mL/min Normal >60 [facility] Comment on above: Result Comment: Afri can Argentine GFR Calc Performed By: #### L 500.4100, L501.9520, L500.4050, L501.9985, L501.5200, L503.0106, L100.0100 #### [facility] [address] [place], [place], [id number] (854) GAP 6 Normal 5-15 [facility] Comment on above: Performed By: #### L 500.4100, L501.9520, L500.4050, L501.9985, L501.5200, L503.0106, L100.0100 #### [facility] [address] [place], [address] GFR/1.73 sq M.predicted among non-blacks MDRD (S/P/Bld) [Vol rate/Area] 67 mL/min/{1.73_m2} Normal >60 [facility] Comment on above: Result Comment: Non- GFR Calc Performed By: #### L 500.4100, L501.9520, L500.4050, L501.9985, L501.5200, L503.0106, L100.0100 #### [facility] [address] [place], [address] Globulin (S) [Mass/Vol] 3.5 g/dL Normal 2.2-4.2 [facility] Comment on above: Performed By: #### L 500.4100, L501.9520, L500.4050, L501.9985, L501.5200, L503.0106, L100.0100 #### [facility] [address] [place], [address] Glucose [Mass/Vol] 110 mg/dL High 74-[address] [facility] Comment on above: Result Comment: Fast ing Glucose result from 100 to 125 mg/dL suggests IMPAIRED HOMEOSTASIS per A.D.A. criteria. Performed By: #### L 500.4100, L501.9520, L500.4050, L501.9985, L501.5200, L503.0106, L100.0100 #### [facility] [address] [place], [address] Potassium [Moles/Vol] 3.7 mmol/L Normal 3.5-5.1 [facility] Comment on above: Performed By: #### L 500.4100, L501.9520, L500.4050, L501.9985, L501.5200, L503.0106, L100.0100 #### [facility] [address] [place], [address] Sodium [Moles/Vol] 139 mmol/L Normal 136-[address] [facility] Comment on above: Performed By: #### L 500.4100, L501.9520, L500.4050, L501.9985, L501.5200, L503.0106, L100.0100 #### [facility] [address] [place], [address] T PROT 7.3 g/dL Normal 6.4-8.2 [facility] Comment on above: Performed By: #### L 500.4100, L501.9520, L500.4050, L501.9985, L501.5200, L503.0106, L100.0100 #### [facility] [address] [place], [address] Urea nitrogen [Mass/Vol] 10 mg/dL Normal 7-18 [facility] Comment on above: Performed By: #### L 500.4100, L501.9520, L500.4050, L501.9985, L501.5200, L503.0106, L100.0100 #### [facility] [address] [place], [place], [id number] Absolute lymphocyte countOrd ered By: Мария Perdomo on 03-10-2024 Lymphocytes Auto (Unsp spec) [#/Vol] 3.37 10*3/uL 0.83-4.51 [facility] Automated lymphocyte count a s percentage of total leukocytesOrdered By: Мария Perdomo on 03-10-2024 Lymphocytes/100 WBC Auto (Unsp spec) 52.3 % 19-41 [facility] Basophil percentageOrdered B y: Мария Perdomo on 03-10-2024 Basophils/100 WBC (Bld) 0.6 % 0-1 [facility] Bilirubin [Mass/Vol] 0.30 mg/dL 0.20-1.00 [facility] Comment on above: For patients on eltr ombopag therapy, use of Dimension [place] TBIL is not recommended. Chloride [Moles/Vol] 107 mmol/L 98-107 [facility] Eosinophils/100 WBC (Bld) 4.0 % 0-5 [facility] Glucose [Mass/Vol] 107 mg/dL 74-[address] [facility] Comment on above: Fasting Glucose resu lt from 100 to 125 mg/dL suggests IMPAIRED HOMEOSTASIS per A.D.A. criteria. Hemoglobin (Bld) [Mass/Vol] 13.4 g/dL 12.0-15.0 [facility] Monocytes/100 WBC (Bld) 6.1 % 0-10 [facility] Neutrophils (Bld) [#/Vol] 2.4 10*3/uL 2.0-7.7 [facility] Neutrophils/100 WBC (Bld) 36.8 % 47-70 [facility] Potassium [Moles/Vol] 3.7 mmol/L 3.5-5.1 [facility] Protein [Mass/Vol] 7.1 g/dL 6.4-8.[address] [facility] Sodium [Moles/Vol] 139 mmol/L 136-[address] [facility] WBC (Bld) [#/Vol] 6.4 10*3/uL 4.4-11.[address] [facility] Determination of erythrocyte mean corpuscular volume (MCV)Ordered By: Мария Perdomo on 03-10-2024 MCV (RBC) [Entitic vol] 94.7 fL 81-99 [facility] Erythrocyte distribution wid th ratioOrdered By: [facility] Conor on 03-10-2024 Erythrocyte distribution width (RBC) [Ratio] 14.1 % 11.6-14.6 [facility] Erythrocyte distribution wid th standard deviationOrdered By: [facility] Conor on 03-10-2024 Erythrocyte distribution width (RBC) [Entitic vol] 49.1 fL 35.1-43.9 [facility] Hematocrit Auto (Bld) [Volum e fraction]Ordered By: Мария Perdomo on 03-10-2024 Hematocrit (Bld) [Volume fraction] 40.9 % 37-47 [facility] Immature granulocytes/100 WB C Auto (Bld)Ordered By: [facility] Conor on 03-10-2024 Immature granulocytes/100 WBC (Bld) 0.200 % 0.0-0.9 [facility] Comment on above: IG% - Immature Granu locytes (promyelocytes, myelocytes and metamyelocytes) > 1% indicates that a LEFT SHIFT is Present. Laboratory - Chemistry and C hemistry - challengeOrdered By: Мария Conor on 03-10-2024 Albumin/Globulin [Mass ratio] 1.3 {ratio} 0.9-2.4 [facility] ALP [Catalytic activity/Vol] 69 U/L 45-117 [facility] ALT [Catalytic activity/Vol] 43 U/L 13-56 [facility] CO2 [Moles/Vol] 29.0 mmol/L 21.0-32.0 [facility] Globulin (S) [Mass/Vol] 3.1 g/dL 2.2-4.2 [facility] Urea nitrogen/Creatinine [Mass ratio] 19.0 mg/mg 10-20 [facility] - Hematology and Cell countsOrdered By: Мария Perdomo on 03-10-2024 MCH (RBC) [Entitic mass] 31.0 pg 27.0-32.0 [facility] MCHC (RBC) [Mass/Vol] 32.8 g/dL 32-36 [facility] Nucleated RBC/100 WBC (Bld) [Ratio] 0 % 0-5 [facility] Platelet mean volume (Bld) [Entitic vol] 10.7 fL 6.2-12.0 [facility] Platelets (Bld) [#/Vol] 225 10*3/uL 150-450 [facility] No Panel InformationOrdered By: Мария Perdomo on 03-10-2024 Estimated GFR (MDRD) Amer 97 mL/min >60 [facility] Comment on above: GFR Calc Estimated GFR (MDRD) Non-Af Amer 80 mL/min >60 [facility] Comment on above: Non- GFR Calc RBC Auto (Bld) [#/Vol]Ordere d By: Мария Perdomo on 03-10-2024 RBC (Bld) [#/Vol] 4.32 10*6/uL 4.2-5.4 [facility] Serum or plasma calcium ron urement (mass/volume)Ordered By: Мария Perdomo on 03-10-2024 Calcium [Mass/Vol] 9.0 mg/dL 8.5-10.[address] [facility] Serum or plasma creatinine m easurement (mass/volume)Ordered By: Мария Perdomo on 03-10-2024 Creatinine [Mass/Vol] 0.79 mg/dL 0.55-1.02 [facility] Comment on above: The validity of the calculated GFR & GFRAA in patients over 70 years has not been determined. Clinical correlation is essential. Serum or plasma urea nitroge n measurement (mass/volume)Ordered By: Мария Perdomo on 03-10-2024 Urea nitrogen [Mass/Vol] 15 mg/dL 7-18 [facility] Thin prep Papanicolaou smear with manual screeningOrdered By: Мария Perdomo on 03-10-2024 Thin prep Papanicolaou smear with manual screening 4.0 g/dL 3.2-5.0 [facility] Thin prep Papanicolaou smear with manual screening 24 U/L 15-37 [facility] Thin prep Papanicolaou smear with manual screening 3 5-15 [facility] Absolute lymphocyte countOrd ered By: Мария Perdomo on 02-19-2024 Lymphocytes Auto (Unsp spec) [#/Vol] 3.29 10*3/uL 0.83-4.51 [facility] Automated blood hematocrit ( percentage)Ordered By: Мария Perdomo on 02-19-2024 Hematocrit (Bld) [Volume fraction] 41.2 % 37-47 [facility] Automated lymphocyte count a s percentage of total leukocytesOrdered By: Мария Perdomo on 02-19-2024 Lymphocytes/100 WBC Auto (Unsp spec) 51.6 % 19-41 [facility] Basophil percentageOrdered B y: Мария Perdomo on 02-19-2024 Basophils/100 WBC (Bld) 0.6 % 0-1 [facility] Bilirubin [Mass/Vol] 0.40 mg/dL 0.20-1.00 [facility] Comment on above: For patients on eltr ombopag therapy, use of Dimension [place] TBIL is not recommended. Chloride [Moles/Vol] 106 mmol/L 98-107 [facility] Cholesterol [Mass/Vol] 215 mg/dL <200 [facility] Comment on above: <200 mg/dL Desirable 200-240 mg/dL Borderline >240 mg/dL High Risk Eosinophils/100 WBC (Bld) 1.4 % 0-5 [facility] Glucose [Mass/Vol] 107 mg/dL 74-[address] [facility] Comment on above: Fasting Glucose resu lt from 100 to 125 mg/dL suggests IMPAIRED HOMEOSTASIS per A.D.A. criteria. Hemoglobin (Bld) [Mass/Vol] 13.3 g/dL 12.0-15.0 [facility] Monocytes/100 WBC (Bld) 6.9 % 0-10 [facility] Neutrophils (Bld) [#/Vol] 2.5 10*3/uL 2.0-7.7 [facility] Neutrophils/100 WBC (Bld) 39.3 % 47-70 [facility] Potassium [Moles/Vol] 3.5 mmol/L 3.5-5.1 [facility] Protein [Mass/Vol] 7.5 g/dL 6.4-8.[address] [facility] Sodium [Moles/Vol] 138 mmol/L 136-[address] [facility] Triglyceride [Mass/Vol] 152 mg/dL <199 [facility] Comment on above: The drugs N-Acetylcy steine and Metamizole may falsely depress this assay.Serum Triglycerides Reference Interval Normal <150 mg/dL Borderline high 150 - 199 mg/dL High 200 - 499 mg/dL Very High > or = 500 mg/dL WBC (Bld) [#/Vol] 6.4 10*3/uL 4.4-11.[address] [facility] CBC W/DIFF/PLT (EXTERNAL LAB ELENITA)on 02-19-2024 BASO ABSOLUTE [facility] EOS ABSOLUTE [facility] Immature Gran % [facility] IMMATURE GRANS ABSOLUTE C [facility] Lymphocytes/100 WBC (Bld) 51.6 % [facility] LYMPHS ABSOLUTE 3.29 Abnormal [facility] MCH 30.2 Pg 26.6 - 33 Pg [facility] MONOCYTES ABSOLUTE [facility] NEUTROPHILS ABSOLUTE 2.5 [facility] RBC (Bld) [#/Vol] 4.4 10*6/uL [facility] CMP (EXTERNAL)on 02-19-2024 Albumin [Mass/Vol] 3.9 g/dL [facility] Alk Phos Total 79 U/L 45 - 117 U/L [facility] AST [Catalytic activity/Vol] 32 U/L 8 - 37 U/L [facility] Bili Total 0.4 mg/dL 0.2 - 1 mg/dL [facility] CO2 [Moles/Vol] 26 mmol/L [facility] Creatinine [Mass/Vol] 0.9 mg/dL [facility] GFR 69 mL/MIN [facility] GFR AFR AMER 83 mL/MIN [facility] Determination of erythrocyte mean corpuscular volume (MCV)Ordered By: Мария Perdomo on 02-19-2024 MCV (RBC) [Entitic vol] 93.6 fL 81-99 [facility] Erythrocyte distribution wid th ratioOrdered By: Мария Perdomo on 02-19-2024 Erythrocyte distribution width (RBC) [Ratio] 13.8 % 11.6-14.6 [facility] Erythrocyte distribution wid th standard deviationOrdered By: Мария Perdomo on 02-19-2024 Erythrocyte distribution width (RBC) [Entitic vol] 46.6 fL 35.1-43.9 [facility] Immature granulocytes/100 WB C Auto (Bld)Ordered By: Мария Perdomo on 02-19-2024 Immature granulocytes/100 WBC (Bld) 0.200 % 0.0-0.9 [facility] Comment on above: IG% - Immature Granu locytes (promyelocytes, myelocytes and metamyelocytes) > 1% indicates that a LEFT SHIFT is Present. LIPID PANEL (OUTSIDE)on 02-09 LDL:HDL Ratio [facility] Non-HDL Cholesterol [facility] TC:HDL Ratio [facility] VLDL Cholesterol [facility] Laboratory - Chemistry and C hemistry - challengeOrdered By: Мария Perdomo on 02-19-2024 Albumin/Globulin [Mass ratio] 1.1 {ratio} 0.9-2.4 [facility] ALP [Catalytic activity/Vol] 79 U/L 45-117 [facility] ALT [Catalytic activity/Vol] 57 U/L 13-56 [facility] Cholesterol in HDL [Mass/Vol] 66 mg/dL >40 [facility] Comment on above: The drugs N-Acetylcy steine and Metamizole may falsely depress this assay. Reference Range HDL <40 mg/dL Low HDL Cholesterol HDL >or= 60 mg/dL High HDL Cholesterol Cholesterol in LDL [Mass/Vol] 119 mg/dL 0-130 [facility] CO2 [Moles/Vol] 26.0 mmol/L 21.0-32.0 [facility] Cobalamin (Vitamin B12) [Mass/Vol] 659 pg/mL 211-911 [facility] Globulin (S) [Mass/Vol] 3.6 g/dL 2.2-4.2 [facility] Magnesium [Mass/Vol] 2.3 mg/dL 1.6-2.6 [facility] Urea nitrogen/Creatinine [Mass ratio] 15.6 mg/mg 10-20 [facility] - Hematology and Cell countsOrdered By: Мария Perdomo on 02-19-2024 MCH (RBC) [Entitic mass] 30.2 pg 27.0-32.0 [facility] MCHC (RBC) [Mass/Vol] 32.3 g/dL 32-36 [facility] Nucleated RBC/100 WBC (Bld) [Ratio] 0 % 0-5 [facility] Platelet mean volume (Bld) [Entitic vol] 10.6 fL 6.2-12.0 [facility] Platelets (Bld) [#/Vol] 253 10*3/uL 150-450 [facility] Magnesium [Mass/Vol]on 02-18 Magnesium.plasma/Magnes ium.RBC (Bld) [Molar ratio] 2.3 1.6 - 2.6 [facility] No Panel Informationon 02-18 Interpretation and review of laboratory results Abnormal [facility] No Panel InformationOrdered By: Мария Perdomo on 02-19-2024 Estimated GFR (MDRD) Amer 83 mL/min >60 [facility] Comment on above: GFR Calc Estimated GFR (MDRD) Non-Af Amer 69 mL/min >60 [facility] Comment on above: Non- GFR Calc VLDL Cholesterol 30 mg/dL 5-40 [facility] RBC Auto (Bld) [#/Vol]Ordere d By: Мария Perdomo on 02-19-2024 RBC (Bld) [#/Vol] 4.40 10*6/uL 4.2-5.4 [facility] Serum or plasma calcium ron urement (mass/volume)Ordered By: Маиря Perdomo on 02-19-2024 Calcium [Mass/Vol] 9.2 mg/dL 8.5-10.[address] [facility] Serum or plasma creatinine m easurement (mass/volume)Ordered By: Мария Perdomo on 02-19-2024 Creatinine [Mass/Vol] 0.90 mg/dL 0.55-1.02 [facility] Comment on above: The validity of the calculated GFR & GFRAA in patients over 70 years has not been determined. Clinical correlation is essential. Serum or plasma urea nitroge n measurement (mass/volume)Ordered By: Мария Perdomo on 02-19-2024 Urea nitrogen [Mass/Vol] 14 mg/dL 7-18 [facility] Thin prep Papanicolaou smear with manual screeningOrdered By: Мария Perdomo on 02-19-2024 Thin prep Papanicolaou smear with manual screening 3.9 g/dL 3.2-5.0 [facility] Thin prep Papanicolaou smear with manual screening 32 U/L 15-37 [facility] Thin prep Papanicolaou smear with manual screening 6 5-15 [facility] Whole blood hemoglobin A1c/t otal hemoglobin ratio (mass fraction)Ordered By: Мария Perdomo on 02-19-2024 HbA1c (Bld) [Mass fraction] 5.6 % 3.8-5.6 [facility] Comment on above: Normal < 5.7 % Predi abetic 5.7 - 6.4 % Diabetic >or= 6.5 % Please note range changes. 36on 02-03-2024 36 Spoke with patient s he would like to have [place] [employer] paperwork filled out. Per Dr. Peterson she should remain out of work until 1 year from date of injury at that time she will be MMI and would require permanent restrictions [place] [address] [place] paperwork received, LVM for patient to discuss if this needs filled out since she filed for SS Disability. Dr. Peterson is ok to keep patient out until 1 year from date of injury an she will be MMI at that time. [facility] 36on 01-28-2024 36 Emilia is calling [employer] stating that she spoke to [employer] and they asked for the office information and Dr. Peterson's name and she gave that to them. They should be contacting the office with information that they will need. She will call back if they reach out to her asking for something from the office. PT appreciates the help and says thank you . [facility] 36 I called and left message for patient that she can let us know what she needs for disability or restrictions, she can call or fax forms [place] [address] I can help her out with whatever documentation she needs for permanent disability [place] [phone] Original injury was a fall at home. 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 Normal [facility] 36 If it is a legal iss ue I can provide a short letter with my opinion on permanent restrictions Normal [facility] 36 CRPS Right wrist and Right shoulder Ad Cap, initially treated by Cindy Fitzpatrick for right distal radius fracture DOI 05/15/2023. Please advise on how to proceed for permanent restrictions as patient continues to have right UE stiffness and dysfunction. Normal [facility] 36 Pt called stating th at her insurance wouldn't cover the test and she cannot afford to pay out of pocket for it. [facility] 36on 01-27-2024 36 Spoke to PT and confirmed no more Disability FCE. Spoke to patient and confirmed. Faxed order to [facility] and gave patient phone number to call to schedule. [phone] [facility] 36 Name of caller: Tanna dallas Contact phone number: [phone] Relationship to Patient: patient Provider: Dr Peterson Practice: Ortho Chief Complaint/Reason for Call: Pt states [place] no longer does FCE, only for Workers' Comp patients. She is asking for another recommendation. Please advise Best time of day caller can be reached: any Patient advised that office/PCP has 24-48 business hours to return their call: no [facility] Office Visiton 01-23-2024 Follow-up visit [id number] Tanna Hensley celena 1965 F Date Provider Department Center 01/23/2024 [id number] PETERSON [facility] None No family history on file Level of Service:50195 [place] OFFICE/OUTPATIENT ESTABLISHED LOW MDM 20 MIN Reason for Visit and Comments: Follow-up [177087] - CRPS Right wrist and Right shoulder Ad Cap [facility] Progress Noteon 01-23-2024 Progress Note [facility] [address] [place] [address] Dept: [phone] Dept 01/23/2024 Chief Complaint Patient presents with Follow-up CRPS Right wrist and Right shoulder Ad Cap KELLI Emilia returns today in follow-up regarding CRPS Right wrist and Right shoulder Ad Cap. Last appointment was approximately 3 months ago. At her last appointment she was treated with a home exercise program. She feels she is doing about the same since last visit. She does have more shoulder range of motion but continues to have constant pain in her hand and forearm. She also reports numbness is spreading up her arm. Continues to endorse right hand dysfunction as her main complaint. Has constant pain, hypersensitivity, and stiffness of the wrist and fingers. Also continues to have right shoulder stiffness. Symptom duration: less than 1 year. No results found for: HGBA1C OBJECTIVE BP 122/74 Ht 5' (1.524 m) Wt 180 lb (81.6 kg) BMI 35.15 kg/m? Ortho Exam Right Shoulder ROM: RIGHT Forward Elevation AROM 130? PROM Same External Rotation AROM 45? PROM Same Internal Rotation Buttock Right Wrist ROM: Flexion 45? Extension 0? Supination 45? Pronation 80? RIGHT Hand 2-point discrimination (mm) Thumb Index Long Ring Small r u r u r u r u r u 5 5 5 5 5 5 5 5 5 5 Median Ulnar Clinical image(s): IMAGING XRay: reviewed from a previous date Right Wrist 3V healed distal radius fracture with continued osteopenia throughout the distal radius carpus and metacarpals consistent with CRPS. NCT/EMG (Copied Impression) Results dated from 08/26/23 PROCEDURE none ASSESSMENT (G90.511) Complex regional pain syndrome type 1 of right upper extremity (M75.01) Adhesive capsulitis of right shoulder (G56.01) Carpal tunnel syndrome of right wrist (S52.501P) Traumatic closed displaced fracture of distal end of right radius with malunion 1. Complex regional pain syndrome type 1 of right upper extremity 2. Adhesive capsulitis of right shoulder 3. Carpal tunnel syndrome of right wrist 4. Traumatic closed displaced fracture of distal end of right radius with malunion PLAN Emilia has permanent stiffness and dysfunction of her right upper extremity secondary to CRPS. There is not much I can offer her from a wrist and hand standpoint. I explained she could consider arthroscopic capsular release with shoulder manipulation but even that could put her at risk for worsening CRPS. For the time being she is going to continue with conservative management. I think it is warranted at this point to obtain an FCE to better define permanent functional disability moving forward. I will see her back after the FCE is complete. Immobilization: NO immobilization required at this point - FULL ROM all joints encouraged Weight Bearing: Weight Bearing As Tolerated through right sided upper extremity Rehabilitation: NO formal rehabilitation required at this point. Follow-up: Emilia will followup with me after FCE is complete. She knows to call the office with any questions or concerns in the interim. Future Imaging: NONE Ina Peterson MD Hand and Upper Extremity Surgery [facility] Department of Orthopaedics and Sports Medicine 01/23/2024 at 10:16 AM (Please note that portions of this note may have been completed with a voice recognition program. Efforts were made to edit the dictations but occasionally words are mis-transcribed.) [facility] Absolute lymphocyte countOrd ered By: Мария Perdomo on 11-26-2023 Lymphocytes Auto (Unsp spec) [#/Vol] 3.44 10*3/uL 0.83-4.51 [facility] Automated lymphocyte count a s percentage of total leukocytesOrdered By: Мария Perdomo on 11-26-2023 Lymphocytes/100 WBC Auto (Unsp spec) 52.1 % 19-41 [facility] Basophil percentageOrdered B y: Мария Perdomo on 11-26-2023 Basophils/100 WBC (Bld) 0.6 % 0-1 [facility] Bilirubin [Mass/Vol] 0.30 mg/dL 0.20-1.00 [facility] Comment on above: For patients on eltr ombopag therapy, use of Dimension [place] TBIL is not recommended. Chloride [Moles/Vol] 108 mmol/L 98-107 [facility] Eosinophils/100 WBC (Bld) 0.8 % 0-5 [facility] Glucose [Mass/Vol] 131 mg/dL 74-[address] [facility] Comment on above: Fasting Glucose resu lt greater than or equal to 126 mg/dL suggests DIABETES MELLITUS per A.D.A. criteria. Hemoglobin (Bld) [Mass/Vol] 13.4 g/dL 12.0-15.0 [facility] Monocytes/100 WBC (Bld) 5.6 % 0-10 [facility] Neutrophils (Bld) [#/Vol] 2.7 10*3/uL 2.0-7.7 [facility] Neutrophils/100 WBC (Bld) 40.7 % 47-70 [facility] Potassium [Moles/Vol] 3.7 mmol/L 3.5-5.1 [facility] Protein [Mass/Vol] 7.3 g/dL 6.4-8.[address] [facility] Sodium [Moles/Vol] 140 mmol/L 136-[address] [facility] WBC (Bld) [#/Vol] 6.6 10*3/uL 4.4-11.[address] [facility] Determination of erythrocyte mean corpuscular volume (MCV)Ordered By: Мария Perdomo on 11-26-2023 MCV (RBC) [Entitic vol] 94.9 fL 81-99 [facility] Erythrocyte distribution wid th ratioOrdered By: Мария Perdomo on 11-26-2023 Erythrocyte distribution width (RBC) [Ratio] 13.8 % 11.6-14.6 [facility] Erythrocyte distribution wid th standard deviationOrdered By: Мария Perdomo on 11-26-2023 Erythrocyte distribution width (RBC) [Entitic vol] 48.9 fL 35.1-43.9 [facility] Hematocrit Auto (Bld) [Volum e fraction]Ordered By: Мария Perdomo on 11-26-2023 Hematocrit (Bld) [Volume fraction] 41.0 % 37-47 [facility] Immature granulocytes/100 WB C Auto (Bld)Ordered By: Марияcristóbal Perdomo on 11-26-2023 Immature granulocytes/100 WBC (Bld) 0.200 % 0.0-0.9 [facility] Comment on above: IG% - Immature Granu locytes (promyelocytes, myelocytes and metamyelocytes) > 1% indicates that a LEFT SHIFT is Present. Laboratory - Chemistry and C hemistry - challengeOrdered By: Мария Perdomo on 11-26-2023 Albumin/Globulin [Mass ratio] 1.1 {ratio} 0.9-2.4 [facility] ALP [Catalytic activity/Vol] 88 U/L 45-117 [facility] ALT [Catalytic activity/Vol] 37 U/L 13-56 [facility] CO2 [Moles/Vol] 25.0 mmol/L 21.0-32.0 [facility] Globulin (S) [Mass/Vol] 3.4 g/dL 2.2-4.2 [facility] Urea nitrogen/Creatinine [Mass ratio] 12.7 mg/mg 10-20 [facility] Laboratory - Hematology and Cell countsOrdered By: Мария Perdomo on 11-26-2023 MCH (RBC) [Entitic mass] 31.0 pg 27.0-32.0 [facility] MCHC (RBC) [Mass/Vol] 32.7 g/dL 32-36 [facility] Nucleated RBC/100 WBC (Bld) [Ratio] 0 % 0-5 [facility] Platelets (Bld) [#/Vol] 265 10*3/uL 150-450 [facility] No Panel InformationOrdered By: Мария Perdomo on 11-26-2023 Estimated GFR (MDRD) Amer 87 mL/min >60 [facility] Comment on above: GFR Calc Estimated GFR (MDRD) Non-Af Amer 72 mL/min >60 [facility] Comment on above: Non- GFR Calc Platelet mean volume Hiram-Ec ker (Bld) [Entitic vol]Ordered By: Мария Perdomo on 11-26-2023 Platelet mean volume (Bld) [Entitic vol] 10.7 fL 6.2-12.0 [facility] RBC Auto (Bld) [#/Vol]Ordere d By: Мария Perdomo on 11-26-2023 RBC (Bld) [#/Vol] 4.32 10*6/uL 4.2-5.[address] [facility] Serum or plasma calcium ron urement (mass/volume)Ordered By: Мария Perdomo on 11-26-2023 Calcium [Mass/Vol] 9.1 mg/dL 8.5-10.[address] [facility] Serum or plasma creatinine m easurement (mass/volume)Ordered By: Мария Perdomo on 11-26-2023 Creatinine [Mass/Vol] 0.87 mg/dL 0.55-1.02 [facility] Comment on above: The validity of the calculated GFR & GFRAA in patients over 70 years has not been determined. Clinical correlation is essential. Serum or plasma urea nitroge n measurement (mass/volume)Ordered By: Мария Perdomo on 11-26-2023 Urea nitrogen [Mass/Vol] 11 mg/dL 7-18 [facility] Thin prep Papanicolaou smear with manual screeningOrdered By: Мария Perdomo on 11-26-2023 Thin prep Papanicolaou smear with manual screening 3.9 g/dL 3.2-5.0 [facility] Thin prep Papanicolaou smear with manual screening 21 U/L 15-37 [facility] Thin prep Papanicolaou smear with manual screening 7 5-15 [facility] 36on 11-15-2023 36 Form updated and fax ed to [employer] [facility] Office Visiton 10-24-2023 Follow-up visit [id number] Tanna Hensley celena 1965 F Date Provider Department Center 10/24/2023 [id number] PETERSON [facility]T [facility] None No family history on file Level of Service:32340 [place] OFFICE/OUTPATIENT ESTABLISHED LOW [facility] 20-29 MIN Reason for Visit and Comments: Follow-up [[id number]] - Right wrist CRPS and Right shoulder pain Normal [facility] Progress Noteon 10-24-2023 Progress Note [facility] [address] [place] [address] Dept: [phone] Dept 10/24/2023 Chief Complaint Patient presents with Follow-up Right wrist CRPS and Right shoulder pain HPI Emilia returns today in follow-up regarding Right sided CRPS. Last appointment was approximately 11 weeks ago. She is seeing no improvements and was discharged from therapy because she was making no improvements. Hx of Right distal radius Fx on 05/15/23 treated in cast for 6 weeks At her last appointment she was treated with EMG and therapy States she has made modest improvements with regard to her shoulder range of motion. Does not feel she is made any improvements with regards to her wrist and finger range of motion. She has been compliant with her hand therapy and is at the point now where she can no longer afford to keep attending her hand therapy sessions. States that her hand therapist feels that she is reached a plateau and has not been benefiting from continued therapy. Unfortunately, the patient continues to experience significant sensitivity to the right hand with occasional numbness and tingling into the thumb and index. She has been working range of motion at home without success. She is emotional about the fact that her employer may need to fire her due to her absence of 6 months now and her inability to use her right hand. Symptom duration: less than 1 year. No results found for: HGBA1C OBJECTIVE BP 128/80 Ht 5' (1.524 m) Wt 180 lb (81.6 kg) BMI 35.15 kg/m? Ortho Exam See clinical images below. Skin of the right hand and wrist continues to appear shiny consistent with CRPS. Scant residual global edema of the right hand mildly improved since last visit. Dysesthesias and hyper sensitivity diffusely to touch throughout the entire to the wrist and hand. Significant stiffness of the fingers with MCP flexion of only 45 degrees, PIP 10 degrees, and DIP 10 degrees -both actively and passively. Hand is well-perfused. Intact sensation throughout with hyperesthesias. Shoulder ROM: RIGHT Forward Elevation AROM 130 PROM Same External Rotation AROM 45? PROM Same Internal Rotation Hip Wrist ROM: Flexion 45? Extension 0? Supination 30? Pronation 80? Clinical image(s): IMAGING XRay: Right Wrist 3V healed distal radius fracture with continued osteopenia throughout the distal radius carpus and metacarpals consistent with CRPS. NCT/EMG (Copied Impression) Results dated from 08/26/23 PROCEDURE None ASSESSMENT (G90.511) Complex regional pain syndrome type 1 of right upper extremity (S52.501P) Traumatic closed displaced fracture of distal end of right radius with malunion (M75.01) Adhesive capsulitis of right shoulder (G56.01) Carpal tunnel syndrome of right wrist 1. Complex regional pain syndrome type 1 of right upper extremity 2. Traumatic closed displaced fracture of distal end of right radius with malunion 3. Adhesive capsulitis of right shoulder 4. Carpal tunnel syndrome of right wrist PLAN I independently interpreted her EMG. She has mild carpal tunnel syndrome. I offered her an injection but she declined as she is deathly afraid of needles. Unfortunately, she has a severe case of CRPS affecting both her shoulder as well as her wrist and hand. Shoulder has demonstrated mild improvement with both active and passive range of motion although it is still not full. The hand and wrist unfortunately continues to be significantly stiff with limited active and passive range of motion, hypersensitivity, diffuse swelling, and dysesthesias consistent with persistent CRPS. I was honest with her today that she we will certainly be left with functional disability in her right hand secondary to her limited range of motion. She has not been 6 months out of work and may lose her job. I told her I fully support her in obtaining permanent disability benefits if she elects to go that route. Unfortunately, she has been very compliant with her hand therapy but has had a very poor functional outcome secondary to her advanced CRPS. She understands that her hand symptoms may improve with time but I would not expect complete recovery. She is going to explore her options with regards to disability and contact the office if we can be of any assistance. Otherwise I will see her back in 3 months time. Immobilization: NO immobilization required at this point - FULL ROM all joints encouraged Weight Bearing: Weight Bearing As Tolerated through right sided upper extremity Rehabilitation: OT/PT Rx given. Follow-up: Emilia will followup with me in 3 months. She knows to call the office with any questions or concerns in the interim. Future Imaging: NONE Ina Peterson MD Hand and Upper Extremity Surgery [facility] Department of Orthopaedics and Sports Medicine 10/24/2023 at 9:04 AM (Please note t (more content not included)... [facility] [id number] 09-05-2023 [id number] Spoke to patients and scheduled follow up. [facility] Absolute lymphocyte countOrd ered By: Мария Perdomo on 09-03-2023 Lymphocytes Auto (Unsp spec) [#/Vol] 3.93 10*3/uL 0.83-4.51 [facility] Basophil percentageOrdered B y: Мария Perdomo on 09-03-2023 Basophils/100 WBC (Bld) 0.3 % 0-1 [facility] Bilirubin [Mass/Vol] 0.30 mg/dL 0.20-1.00 [facility] Comment on above: For patients on eltr ombopag therapy, use of Dimension [place] TBIL is not recommended. Chloride [Moles/Vol] 107 mmol/L 98-107 [facility] Eosinophils/100 WBC (Bld) 0.8 % 0-5 [facility] Glucose [Mass/Vol] 89 mg/dL 74-106 [facility] Neutrophils (Bld) [#/Vol] 3.0 10*3/uL 2.0-7.7 [facility] Neutrophils/100 WBC (Bld) 39.9 % 47-70 [facility] Potassium [Moles/Vol] 3.6 mmol/L 3.5-5.1 [facility] Protein [Mass/Vol] 7.6 g/dL 6.4-8.[address] [facility] Sodium [Moles/Vol] 137 mmol/L 136-[address] [facility] WBC (Bld) [#/Vol] 7.6 10*3/uL 4.4-11.[address] [facility] Blood erythrocytes count (nu mber/volume)Ordered By: Мария Perdomo on 09-03-2023 RBC (Bld) [#/Vol] 4.35 10*6/uL 4.2-5.4 [facility] Blood hemoglobin measurement (mass/volume)Ordered By: Мария Perdomo on 09-03-2023 Hemoglobin (Bld) [Mass/Vol] 13.2 g/dL 12.0-15.0 [facility] Blood lymphocytes/100 leukoc ytesOrdered By: Мария Perdomo on 09-03-2023 Lymphocytes/100 WBC (Bld) 52.0 % 19-41 [facility] Blood monocytes/100 leukocyt esOrdered By: Мария Perdomo on 09-03-2023 Monocytes/100 WBC (Bld) 6.9 % 0-10 [facility] Blood platelet mean volumeOr dered By: Мария Perdomo on 09-03-2023 Platelet mean volume (Bld) [Entitic vol] 10.8 fL 6.2-12.0 [facility] Determination of erythrocyte mean corpuscular volume (MCV)Ordered By: Мария Perdomo on 09-03-2023 MCV (RBC) [Entitic vol] 95.2 fL 81-99 [facility] Hematocrit Auto (Bld) [Volum e fraction]Ordered By: Мария Perdomo on 09-03-2023 Hematocrit (Bld) [Volume fraction] 41.4 % 37-47 [facility] Laboratory - Chemistry and C hemistry - challengeOrdered By: Мария Perdomo on 09-03-2023 ALP [Catalytic activity/Vol] 82 U/L 45-117 [facility] ALT [Catalytic activity/Vol] 44 U/L 13-56 [facility] CO2 [Moles/Vol] 26.0 mmol/L 21.0-32.0 [facility] Globulin (S) [Mass/Vol] 3.7 g/dL 2.2-4.2 [facility] Urea nitrogen/Creatinine [Mass ratio] 16.8 mg/mg 10-20 [facility] Laboratory - Hematology and Cell countsOrdered By: Мария Perdomo on 09-03-2023 Erythrocyte distribution width (RBC) [Entitic vol] 46.3 fL 35.1-43.9 [facility] Erythrocyte distribution width (RBC) [Ratio] 13.3 % 11.6-14.6 [facility] Immature granulocytes/100 WBC (Bld) 0.100 % 0.0-0.9 [facility] Comment on above: IG% - Immature Granu locytes (promyelocytes, myelocytes and metamyelocytes) > 1% indicates that a LEFT SHIFT is Present. MCH (RBC) [Entitic mass] 30.3 pg 27.0-32.0 [facility] Nucleated RBC/100 WBC (Bld) [Ratio] 0 % 0-5 [facility] MCHC Auto (RBC) [Mass/Vol]Or dered By: Мраия Perdomo on 09-03-2023 MCHC (RBC) [Mass/Vol] 31.9 g/dL 32-36 [facility] No Panel InformationOrdered By: Мария Perdomo on 09-03-2023 Estimated GFR (MDRD) Amer 100 mL/min >60 [facility] Comment on above: GFR Calc Estimated GFR (MDRD) Non-Af Amer 82 mL/min >60 [facility] Comment on above: Non- GFR Calc Platelets bldOrdered By: Joshua Perdomo on 09-03-2023 Platelets (Bld) [#/Vol] 234 10*3/uL 150-450 [facility] Serum or plasma albumin ron urement (mass/volume)Ordered By: Мария Perdomo on 09-03-2023 Albumin [Mass/Vol] 3.9 g/dL 3.2-5.[address] [facility] Serum or plasma albumin/glob ulin mass ratioOrdered By: [facility] on 09-03-2023 Albumin/Globulin [Mass ratio] 1.1 {ratio} 0.9-2.4 [facility] Serum or plasma calcium ron urement (mass/volume)Ordered By: [facility] on 09-03-2023 Calcium [Mass/Vol] 9.2 mg/dL 8.5-10.[address] [facility] Serum or plasma creatinine m easurement (mass/volume)Ordered By: [facility] on 09-03-2023 Creatinine [Mass/Vol] 0.77 mg/dL 0.55-1.02 [facility] Comment on above: The validity of the calculated GFR & GFRAA in patients over 70 years has not been determined. Clinical correlation is essential. Serum or plasma urea nitroge n measurement (mass/volume)Ordered By: [facility] on 09-03-2023 Urea nitrogen [Mass/Vol] 13 mg/dL 7-18 [facility] Thin prep Papanicolaou smear with manual screeningOrdered By: [facility] on 09-03-2023 Thin prep Papanicolaou smear with manual screening 21 U/L 15-37 [facility] Thin prep Papanicolaou smear with manual screening 4 5-15 [facility] EMG(NEURO/NI)on 08-26-2023 [facility] 36on 08-12-2023 36 Noted. Thank you. [facility] 36 FMLA forms received and patient will be off work until followup as per letter in chart. [facility] Office Visiton 08-08-2023 Follow-up visit [id number] Tanna Hensley 1965 F Date Provider Department Center 08/08/2023 [id number]-CTPLRINA [facility] None No family history on file Level of Service:20686 [place] OFFICE/OUTPATIENT NEW LOW MDM 30-44 MINUTES Reason for Visit and Comments: New Patient [542] - DOI 05/15/23 Right distal radius fracture, closed tx, referred from [facility] for persistent numbness and swelling, Hx of RA in the finger IP joints Normal [facility] Progress Noteon 09-28-2023 Progress Note [facility] [address] [place] [address] Dept: [phone] Dept 08/08/2023 Chief Complaint Patient presents with New Patient DOI 05/15/23 Right distal radius fracture, closed tx, referred from [facility] for persistent numbness and swelling, Hx of RA in the finger IP joints HISTORY Emilia Hensley is a 57 y.o. right handed female that presents for evaluation and treatment after sustaining an injury to her RIGHT wrist that occurred 12 weeks ago. Emilia is currently employed as [employer] . Mechanism of injury - FOOSH at home. Treatment up to this point has consisted of cast immobilization for 6 weeks, OT for the last 5 weeks, Rx for Tramadol. Following cast removal she was noted to have significant swelling of the hand and wrist. She was started in hand therapy for questionable CRPS. Since her injury she is also developed atraumatic shoulder stiffness. No results found for: HGBA1C OBJECTIVE BP 124/82 Ht 5' (1.524 m) Wt 180 lb (81.6 kg) BMI 35.15 kg/m? Ortho Exam Moderate global edema surrounding the entirety of the wrist, hand, and digits. Significant stiffness of the finger joints per clinical images below. Skin shiny in appearance consistent with CRPS. RIGHT Hand 2-point discrimination (mm) Thumb Index Long Ring Small r u r u r u r u r u 5 5 5 5 5 5 5 5 5 5 Median Ulnar Shoulder ROM: RIGHT Forward Elevation AROM 90? PROM 90? External Rotation AROM 15? PROM 15? Internal Rotation Hip Clinical image(s): Wrist ROM: Flexion 20? Extension 0? Supination 10? Pronation 80? IMAGING Plain films were reviewed by myself from a previous date. 3V WRIST (AP, Oblique, and LAT) show diffuse osteopenia. Healed distal radius. PROCEDURE None ASSESSMENT (G90.511) Complex regional pain syndrome type 1 of right upper extremity (S52.501P) Traumatic closed displaced fracture of distal end of right radius with malunion (M75.01) Adhesive capsulitis of right shoulder 1. Complex regional pain syndrome type 1 of right upper extremity External referral to Occupational Therapy 2. Traumatic closed displaced fracture of distal end of right radius with malunion External referral to Occupational Therapy 3. Adhesive capsulitis of right shoulder External referral to Physical Therapy PLAN I discussed with Emilia the natural history, expected outcome, and risks/benefits of both operative and nonoperative management of her particular diagnosis relative to her age, activity level, most recent imaging, and physical exam. Emilia unfortunately has CRPS following and nonoperatively treated distal radius fracture. She has significant stiffness of the shoulder, forearm, wrist, and hand. She has a scheduled EMG in the next couple weeks. She knows to send us that report in the event that she has peripheral nerve entrapment that may be contributing to her CRPS. Unfortunately, she understands that it can take upwards of a full year to reach max improvement and she may be left with permanent functional disability in the right upper extremity secondary to her CRPS. She is work aggressive hand and physical therapy to reduce swelling and improve motion. She will follow-up in 3 months time. Follow-up: Emilia will followup with me in 3 months. She knows to call the office with any questions or concerns in the interim. Future Imaging: RIGHT Wrist 3V Ina Peterson MD Hand and Upper Extremity Surgery [facility] Department of Orthopaedics and Sports Medicine 08/08/2023 at 10:48 AM (Please note that portions of this note may have been completed with a voice recognition program. Efforts were made to edit the dictations but occasionally words are mis-transcribed.) [facility] No Panel Informationon 08-02 IMPRESSION: No acute osseous abnormality Trampoline Team Coach: HSANI Transcribe Date/Time: Aug 02 2023 11:39A Dictated by : SONIA JACKMAN MD This examination was interpreted and the report reviewed and electronically signed by: SNOIA JACKMAN MD on Aug 02 2023 11:42AM [facility] DIVISION OF RADIOLOGY Radiology Study observation (narrative) Mitali burns [facility] No Panel InformationOrdered By: [facility] Provider on 08-02-2023 [facility] XR Ankle - right AP and Late ral and obliqueon 08-02-2023 * * *Final Report* * * DATE OF EXAM: Aug 02 2023 11:27AM WOX [id number] - XR ANKLE 3V AP/LAT/OBL RT / PROCEDURE REASON: multiple diagnoses * * * * Physician Interpretation * * * * EXAMINATION: XR FOOT 3V AP/LAT/OBL RT, XR ANKLE 3V AP/LAT/OBL RT CLINICAL HISTORY: Right ankle and right foot pain Technique: XR FOOT 3V AP/LAT/OBL RT, XR ANKLE 3V AP/LAT/OBL RT -- RIGHT with 3 views on 3 images Comparison: None RESULT: No acute fracture or dislocation. Joint spaces are maintained. Plantar and posterior calcaneal spurs. DIVISION OF RADIOLOGY Provider, [facility] - 08/02/2023 * * *Final Report* * * DATE OF EXAM: Aug 02 2023 11:27AM WOX [id number] - XR ANKLE 3V AP/LAT/OBL RT / PROCEDURE REASON: multiple diagnoses * * * * Physician Interpretation * * * * EXAMINATION: XR FOOT 3V AP/LAT/OBL RT, XR ANKLE 3V AP/LAT/OBL RT CLINICAL HISTORY: Right ankle and right foot pain Technique: XR FOOT 3V AP/LAT/OBL RT, XR ANKLE 3V AP/LAT/OBL RT -- RIGHT with 3 views on 3 images Comparison: None RESULT: No acute fracture or dislocation. Joint spaces are maintained. Plantar and posterior calcaneal spurs. IMPRESSION IMPRESSION: No acute osseous abnormality Trampoline Team Coach: [facility] Transcribe Date/Time: Aug 02 2023 11:39A Dictated by : SONIA JACKMAN MD This examination was interpreted and the report reviewed and electronically signed by: SONIA JACKMAN MD on Aug 02 2023 11:42AM [facility] XR Foot - right AP and Later al and obliqueon 08-02-2023 * * *Final Report* * * DATE OF EXAM: Aug 02 2023 11:27AM WOX [id number] - XR FOOT 3V AP/LAT/OBL RT / PROCEDURE REASON: multiple diagnoses * * * * Physician Interpretation * * * * EXAMINATION: XR FOOT 3V AP/LAT/OBL RT, XR ANKLE 3V AP/LAT/OBL RT CLINICAL HISTORY: Right ankle and right foot pain Technique: XR FOOT 3V AP/LAT/OBL RT, XR ANKLE 3V AP/LAT/OBL RT -- RIGHT with 3 views on 3 images Comparison: None RESULT: No acute fracture or dislocation. Joint spaces are maintained. Plantar and posterior calcaneal spurs. DIVISION OF RADIOLOGY Provider, [facility] - 08/02/2023 * * *Final Report* * * DATE OF EXAM: Aug 02 2023 11:27AM WOX 5337 - XR FOOT 3V AP/LAT/OBL RT / PROCEDURE REASON: multiple diagnoses * * * * Physician Interpretation * * * * EXAMINATION: XR FOOT 3V AP/LAT/OBL RT, XR ANKLE 3V AP/LAT/OBL RT CLINICAL HISTORY: Right ankle and right foot pain Technique: XR FOOT 3V AP/LAT/OBL RT, XR ANKLE 3V AP/LAT/OBL RT -- RIGHT with 3 views on 3 images Comparison: None RESULT: No acute fracture or dislocation. Joint spaces are maintained. Plantar and posterior calcaneal spurs. IMPRESSION IMPRESSION: No acute osseous abnormality Trampoline Team Coach: [facility] Transcribe Date/Time: Aug 02 2023 11:39A Dictated by : SONIA JACKMAN MD This examination was interpreted and the report reviewed and electronically signed by: SONIA JACKMAN MD on Aug 02 2023 11:42AM [facility] 36on 07-31-2023 36 Spoke with patient, scheduled on 08/08/23. Normal [facility] Absolute lymphocyte countOrd ered By: Мария Perdomo on 07-12-2023 Lymphocytes Auto (Unsp spec) [#/Vol] 3.90 10*3/uL 0.83-4.51 [facility] Basophil percentageOrdered B y: Мария Perdomo on 07-12-2023 Basophils/100 WBC (Bld) 0.6 % 0-1 [facility] Bilirubin [Mass/Vol] 0.20 mg/dL 0.20-1.00 [facility] Comment on above: For patients on eltr ombopag therapy, use of Dimension [place] TBIL is not recommended. Chloride [Moles/Vol] 105 mmol/L 98-107 [facility] Eosinophils/100 WBC (Bld) 3.1 % 0-5 [facility] Glucose [Mass/Vol] 88 mg/dL 74-[address] [facility] Neutrophils (Bld) [#/Vol] 3.9 10*3/uL 2.0-7.7 [facility] Neutrophils/100 WBC (Bld) 44.9 % 47-70 [facility] Potassium [Moles/Vol] 3.6 mmol/L 3.5-5.1 [facility] Protein [Mass/Vol] 7.5 g/dL 6.4-8.[address] [facility] Sodium [Moles/Vol] 140 mmol/L 136-[address] [facility] WBC (Bld) [#/Vol] 8.8 10*3/uL 4.4-11.[address] [facility] Blood erythrocytes count (nu mber/volume)Ordered By: Мария Perdomo on 07-12-2023 RBC (Bld) [#/Vol] 4.30 10*6/uL 4.2-5.4 [facility] Blood hemoglobin measurement (mass/volume)Ordered By: Мария Perdomo on 07-12-2023 Hemoglobin (Bld) [Mass/Vol] 13.1 g/dL 12.0-15.0 [facility] Blood lymphocytes/100 leukoc ytesOrdered By: Мария Perdomo on 07-12-2023 Lymphocytes/100 WBC (Bld) 44.5 % 19-41 [facility] Blood monocytes/100 leukocyt esOrdered By: Мария Perdomo on 07-12-2023 Monocytes/100 WBC (Bld) 6.8 % 0-10 [facility] Blood platelet mean volumeOr dered By: Мария Perdomo on 07-12-2023 Platelet mean volume (Bld) [Entitic vol] 10.7 fL 6.2-12.0 [facility] Determination of erythrocyte mean corpuscular volume (MCV)Ordered By: Мария Perdomo on 07-12-2023 MCV (RBC) [Entitic vol] 94.7 fL 81-99 [facility] Hematocrit Auto (Bld) [Volum e fraction]Ordered By: Мария Perdomo on 07-12-2023 Hematocrit (Bld) [Volume fraction] 40.7 % 37-47 [facility] - Chemistry and C hemistry - challengeOrdered By: Мария Perdomo on 07-12-2023 ALP [Catalytic activity/Vol] 79 U/L 45-117 [facility] ALT [Catalytic activity/Vol] 49 U/L 13-56 [facility] CO2 [Moles/Vol] 27.0 mmol/L 21.0-32.0 [facility] Globulin (S) [Mass/Vol] 3.5 g/dL 2.2-4.2 [facility] Urea nitrogen/Creatinine [Mass ratio] 15.7 mg/mg 10-20 [facility] - Hematology and Cell countsOrdered By: Мария Perdomo on 07-12-2023 Erythrocyte distribution width (RBC) [Entitic vol] 45.1 fL 35.1-43.9 [facility] Erythrocyte distribution width (RBC) [Ratio] 13.2 % 11.6-14.6 [facility] Immature granulocytes/100 WBC (Bld) 0.100 % 0.0-0.9 [facility] Comment on above: IG% - Immature Granu locytes (promyelocytes, myelocytes and metamyelocytes) > 1% indicates that a LEFT SHIFT is Present. MCH (RBC) [Entitic mass] 30.5 pg 27.0-32.0 [facility] Nucleated RBC/100 WBC (Bld) [Ratio] 0 % 0-5 [facility] MCHC Auto (RBC) [Mass/Vol]Or dered By: Мария Perdomo on 07-12-2023 MCHC (RBC) [Mass/Vol] 32.2 g/dL 32-36 [facility] No Panel InformationOrdered By: Мария Perdomo on 07-12-2023 Estimated GFR (MDRD) Amer 85 mL/min >60 [facility] Comment on above: GFR Calc Estimated GFR (MDRD) Non-Af Amer 70 mL/min >60 [facility] Comment on above: Non- GFR Calc Platelets bldOrdered By: Joshua Perdomo on 07-12-2023 Platelets (Bld) [#/Vol] 269 10*3/uL 150-450 [facility] Serum or plasma albumin ron urement (mass/volume)Ordered By: Мария Perdomo on 07-12-2023 Albumin [Mass/Vol] 4.0 g/dL 3.2-5.[address] [facility] Serum or plasma albumin/glob ulin mass ratioOrdered By: Мария Perdomo on 07-12-2023 Albumin/Globulin [Mass ratio] 1.1 {ratio} 0.9-2.4 [facility] Serum or plasma calcium rno urement (mass/volume)Ordered By: Мария Perdomo on 07-12-2023 Calcium [Mass/Vol] 9.2 mg/dL 8.5-10.[address] [facility] Serum or plasma creatinine m easurement (mass/volume)Ordered By: Мария Perdomo on 07-12-2023 Creatinine [Mass/Vol] 0.89 mg/dL 0.55-1.02 [facility] Comment on above: The validity of the calculated GFR & GFRAA in patients over 70 years has not been determined. Clinical correlation is essential. Serum or plasma urea nitroge n measurement (mass/volume)Ordered By: Мария Perdomo on 07-12-2023 Urea nitrogen [Mass/Vol] 14 mg/dL 7-18 [facility] Thin prep Papanicolaou smear with manual screeningOrdered By: [facility] on 07-12-2023 Thin prep Papanicolaou smear with manual screening 26 U/L 15-37 [facility] Thin prep Papanicolaou smear with manual screening 8 5-15 [facility] Absolute lymphocyte countOrd ered By: Мария Perdomo on 05-09-2023 Lymphocytes Auto (Unsp spec) [#/Vol] 3.84 10*3/uL 0.83-4.51 [facility] Basophil percentageOrdered B y: Мария Perdomo on 05-09-2023 Basophils/100 WBC (Bld) 0.6 % 0-1 [facility] Bilirubin [Mass/Vol] 0.20 mg/dL 0.20-1.00 [facility] Comment on above: For patients on eltr ombopag therapy, use of Dim[employer] [place] TBIL is not recommended. Chloride [Moles/Vol] 106 mmol/L 98-107 [facility] Eosinophils/100 WBC (Bld) 2.5 % 0-5 [facility] Glucose [Mass/Vol] 87 mg/dL 74-[address] [facility] Neutrophils (Bld) [#/Vol] 3.4 10*3/uL 2.0-7.7 [facility] Neutrophils/100 WBC (Bld) 42.5 % 47-70 [facility] Potassium [Moles/Vol] 3.7 mmol/L 3.5-5.1 [facility] Protein [Mass/Vol] 7.3 g/dL 6.4-8.[address] [facility] Sodium [Moles/Vol] 138 mmol/L 136-[address] [facility] WBC (Bld) [#/Vol] 7.9 10*3/uL 4.4-11.[address] [facility] Blood erythrocytes count (nu mber/volume)Ordered By: Мария Perdomo on 05-09-2023 RBC (Bld) [#/Vol] 4.17 10*6/uL 4.2-5.4 [facility] Blood hemoglobin measurement (mass/volume)Ordered By: Мария Perdomo on 05-09-2023 Hemoglobin (Bld) [Mass/Vol] 13.0 g/dL 12.0-15.0 [facility] Blood lymphocytes/100 leukoc ytesOrdered By: Мария Perdomo on 05-09-2023 Lymphocytes/100 WBC (Bld) 48.5 % 19-41 [facility] Blood monocytes/100 leukocyt esOrdered By: Мария Perdomo on 05-09-2023 Monocytes/100 WBC (Bld) 5.6 % 0-10 [facility] Blood platelet mean volumeOr dered By: Мария Perdomo on 05-09-2023 Platelet mean volume (Bld) [Entitic vol] 10.4 fL 6.2-12.0 [facility] Determination of erythrocyte mean corpuscular volume (MCV)Ordered By: Мария Perdomo on 05-09-2023 MCV (RBC) [Entitic vol] 93.3 fL 81-99 [facility] Hematocrit Auto (Bld) [Volum e fraction]Ordered By: Мария Perdomo on 05-09-2023 Hematocrit (Bld) [Volume fraction] 38.9 % 37-47 [facility] - Chemistry and C hemistry - challengeOrdered By: Мария Perdomo on 05-09-2023 ALP [Catalytic activity/Vol] 80 U/L 45-117 [facility] ALT [Catalytic activity/Vol] 57 U/L 13-56 [facility] CO2 [Moles/Vol] 26.0 mmol/L 21.0-32.0 [facility] Globulin (S) [Mass/Vol] 3.4 g/dL 2.2-4.2 [facility] Urea nitrogen/Creatinine [Mass ratio] 14.9 mg/mg 10-20 [facility] - Hematology and Cell countsOrdered By: Мария Perdomo on 05-09-2023 Erythrocyte distribution width (RBC) [Entitic vol] 48.2 fL 35.1-43.9 [facility] Erythrocyte distribution width (RBC) [Ratio] 14.1 % 11.6-14.6 [facility] Immature granulocytes/100 WBC (Bld) 0.300 % 0.0-0.9 [facility] Comment on above: IG% - Immature Granu locytes (promyelocytes, myelocytes and metamyelocytes) > 1% indicates that a LEFT SHIFT is Present. MCH (RBC) [Entitic mass] 31.2 pg 27.0-32.0 [facility] Nucleated RBC/100 WBC (Bld) [Ratio] 0 % 0-5 [facility] MCHC Auto (RBC) [Mass/Vol]Or dered By: Мария Perdomo on 05-09-2023 MCHC (RBC) [Mass/Vol] 33.4 g/dL 32-36 [facility] No Panel InformationOrdered By: Мария Perdomo on 05-09-2023 Estimated GFR (MDRD) Amer 95 mL/min >60 [facility] Comment on above: GFR Calc Estimated GFR (MDRD) Non-Af Amer 78 mL/min >60 [facility] Comment on above: Non- GFR Calc Platelets bldOrdered By: Joshua Perdomo on 05-09-2023 Platelets (Bld) [#/Vol] 256 10*3/uL 150-450 [facility] Serum or plasma albumin ron urement (mass/volume)Ordered By: Мария Perdomo on 05-09-2023 Albumin [Mass/Vol] 3.9 g/dL 3.2-5.[address] [facility] Serum or plasma albumin/glob ulin mass ratioOrdered By: Мария Perdomo on 05-09-2023 Albumin/Globulin [Mass ratio] 1.1 {ratio} 0.9-2.4 [facility] Serum or plasma calcium ron urement (mass/volume)Ordered By: Мария Perdomo on 05-09-2023 Calcium [Mass/Vol] 9.0 mg/dL 8.5-10.[address] [facility] Serum or plasma creatinine m easurement (mass/volume)Ordered By: Мария Perdomo on 05-09-2023 Creatinine [Mass/Vol] 0.81 mg/dL 0.55-1.02 [facility] Comment on above: The validity of the calculated GFR & GFRAA in patients over 70 years has not been determined. Clinical correlation is essential. Serum or plasma urea nitroge n measurement (mass/volume)Ordered By: Мария Perdomo on 05-09-2023 Urea nitrogen [Mass/Vol] 12 mg/dL -18 [facility] Thin prep Papanicolaou smear with manual screeningOrdered By: Мария Perdomo on 05-09-2023 Thin prep Papanicolaou smear with manual screening 33 U/L 15- [facility] Thin prep Papanicolaou smear with manual screening 6 5-15 [facility] MAKENZIE SCREENINGon 02-26-2023 [facility] Absolute lymphocyte countOrd ered By: Dr. Perdomo on 02-18-2023 Lymphocytes Auto (Unsp spec) [#/Vol] 4.67 10*3/uL 0.83-4.51 [facility] Basophil percentageOrdered B y: Dr. Perdomo on 02-18-2023 Basophils/100 WBC (Bld) 0.4 % 0-1 [facility] Bilirubin [Mass/Vol] 0.20 mg/dL 0.20-1.00 [facility] Comment on above: For patients on eltr ombopag therapy, use of [employer] [place] TBIL is not recommended. Chloride [Moles/Vol] 105 mmol/L 98-107 [facility] Eosinophils/100 WBC (Bld) 0.4 % 0-5 [facility] Glucose [Mass/Vol] 84 mg/dL 74-[address] [facility] Neutrophils (Bld) [#/Vol] 3.3 10*3/uL 2.0-7.7 [facility] Neutrophils/100 WBC (Bld) 39.4 % 47-70 [facility] Potassium [Moles/Vol] 3.3 mmol/L 3.5-5.1 [facility] Protein [Mass/Vol] 7.2 g/dL 6.4-8.[address] [facility] Sodium [Moles/Vol] 138 mmol/L 136-[address] [facility] WBC (Bld) [#/Vol] 8.5 10*3/uL 4.4-11.[address] [facility] Blood erythrocytes count (nu mber/volume)Ordered By: Dr. Perdomo on 02-18-2023 RBC (Bld) [#/Vol] 4.22 10*6/uL 4.2-5.4 [facility] Blood hemoglobin measurement (mass/volume)Ordered By: Dr. Perdomo on 02-18-2023 Hemoglobin (Bld) [Mass/Vol] 12.9 g/dL 12.0-15.0 [facility] Blood lymphocytes/100 leukoc ytesOrdered By: Dr. Perdomo on 02-18-2023 Lymphocytes/100 WBC (Bld) 55.3 % 19-41 [facility] Blood monocytes/100 leukocyt esOrdered By: Dr. Perdomo on 02-18-2023 Monocytes/100 WBC (Bld) 4.4 % 0-10 [facility] Blood platelet mean volumeOr dered By: Dr. Perdomo on 02-18-2023 Platelet mean volume (Bld) [Entitic vol] 10.5 fL 6.2-12.0 [facility] Determination of erythrocyte mean corpuscular volume (MCV)Ordered By: Dr. Perdomo on 02-18-2023 MCV (RBC) [Entitic vol] 94.5 fL 81-99 [facility] Hematocrit Auto (Bld) [Volum e fraction]Ordered By: Dr. Perdomo on 02-18-2023 Hematocrit (Bld) [Volume fraction] 39.9 % 37-47 [facility] - Chemistry and C hemistry - challengeOrdered By: Dr. Perdomo on 02-18-2023 ALP [Catalytic activity/Vol] 79 U/L 45-117 [facility] ALT [Catalytic activity/Vol] 37 U/L 13-56 [facility] CO2 [Moles/Vol] 27.0 mmol/L 21.0-32.0 [facility] Globulin (S) [Mass/Vol] 3.2 g/dL 2.2-4.2 [facility] Urea nitrogen/Creatinine [Mass ratio] 17.2 mg/mg 10-20 [facility] - Hematology and Cell countsOrdered By: Dr. Perdomo on 02-18-2023 Erythrocyte distribution width (RBC) [Entitic vol] 46.8 fL 35.1-43.9 [facility] Erythrocyte distribution width (RBC) [Ratio] 13.7 % 11.6-14.6 [facility] Immature granulocytes/100 WBC (Bld) 0.100 % 0.0-0.9 [facility] Comment on above: IG% - Immature Granu locytes (promyelocytes, myelocytes and metamyelocytes) > 1% indicates that a LEFT SHIFT is Present. MCH (RBC) [Entitic mass] 30.6 pg 27.0-32.0 [facility] Nucleated RBC/100 WBC (Bld) [Ratio] 0 % 0-5 [facility] MCHC Auto (RBC) [Mass/Vol]Or dered By: Dr. Perdomo on 02-18-2023 MCHC (RBC) [Mass/Vol] 32.3 g/dL 32-36 [facility] No Panel InformationOrdered By: Dr. Perdomo on 02-18-2023 Estimated GFR (MDRD) Amer 94 mL/min >60 [facility] Comment on above: GFR Calc Estimated GFR (MDRD) Non-Af Amer 78 mL/min >60 [facility] Comment on above: Non- GFR Calc Platelets bldOrdered By: Dr. Perdomo on 02-18-2023 Platelets (Bld) [#/Vol] 229 10*3/uL 150-450 [facility] Serum or plasma albumin ron urement (mass/volume)Ordered By: Dr. Perdomo on 02-18-2023 Albumin [Mass/Vol] 4.0 g/dL 3.2-5.[address] [facility] Serum or plasma albumin/glob ulin mass ratioOrdered By: Dr. Perdomo on 02-18-2023 Albumin/Globulin [Mass ratio] 1.2 {ratio} 0.9-2.4 [facility] Serum or plasma calcium ron urement (mass/volume)Ordered By: Dr. Perdomo on 02-18-2023 Calcium [Mass/Vol] 9.2 mg/dL 8.5-10.[address] [facility] Serum or plasma creatinine m easurement (mass/volume)Ordered By: Dr. Perdomo on 02-18-2023 Creatinine [Mass/Vol] 0.81 mg/dL 0.55-1.02 [facility] Comment on above: The validity of the calculated GFR & GFRAA in patients over 70 years has not been determined. Clinical correlation is essential. Serum or plasma urea nitroge n measurement (mass/volume)Ordered By: Dr. Perdomo on 02-18-2023 Urea nitrogen [Mass/Vol] 14 mg/dL 7-18 [facility] Thin prep Papanicolaou smear with manual screeningOrdered By: Dr. ePrdomo on 02-18-2023 Thin prep Papanicolaou smear with manual screening 23 U/L 15-37 [facility] Thin prep Papanicolaou smear with manual screening 6 5-15 [facility] Basophil percentageOrdered B y: Dr. Perdomo on 12-26-2022 Bilirubin [Mass/Vol] 0.20 mg/dL 0.20-1.00 [facility] Comment on above: For patients on eltr ombopag therapy, use of Dim[employer] [place] TBIL is not recommended. Chloride [Moles/Vol] 103 mmol/L 98-107 [facility] Glucose [Mass/Vol] 89 mg/dL 74-[address] [facility] Potassium [Moles/Vol] 3.5 mmol/L 3.5-5.1 [facility] Protein [Mass/Vol] 7.7 g/dL 6.4-8.[address] [facility] Sodium [Moles/Vol] 138 mmol/L 136-[address] [facility] Laboratory - Chemistry and C hemistry - challengeOrdered By: Dr. Perdomo on 12-26-2022 ALP [Catalytic activity/Vol] 93 U/L 45-117 [facility] ALT [Catalytic activity/Vol] 39 U/L 13-56 [facility] CO2 [Moles/Vol] 24.0 mmol/L 21.0-32.0 [facility] Globulin (S) [Mass/Vol] 3.7 g/dL 2.2-4.2 [facility] Urea nitrogen/Creatinine [Mass ratio] 14.9 mg/mg 10-20 [facility] No Panel InformationOrdered By: Dr. Perdomo on 12-26-2022 Estimated GFR (MDRD) Amer 73 mL/min >60 [facility] Comment on above: GFR Calc Estimated GFR (MDRD) Non-Af Amer 61 mL/min >60 [facility] Comment on above: Non- GFR Calc Serum or plasma albumin ron urement (mass/volume)Ordered By: Dr. Perdomo on 12-26-2022 Albumin [Mass/Vol] 4.0 g/dL 3.2-5.[address] [facility] Serum or plasma albumin/glob ulin mass ratioOrdered By: Dr. Perdomo on 12-26-2022 Albumin/Globulin [Mass ratio] 1.1 {ratio} 0.9-2.4 [facility] Serum or plasma calcium ron urement (mass/volume)Ordered By: Dr. Perdomo on 12-26-2022 Calcium [Mass/Vol] 9.3 mg/dL 8.5-10.[address] [facility] Serum or plasma creatinine m easurement (mass/volume)Ordered By: Dr. Perdomo on 12-26-2022 Creatinine [Mass/Vol] 1.01 mg/dL 0.55-1.02 [facility] Comment on above: The validity of the calculated GFR & GFRAA in patients over 70 years has not been determined. Clinical correlation is essential. Serum or plasma urea nitroge n measurement (mass/volume)Ordered By: Dr. Perdomo on 12-26-2022 Urea nitrogen [Mass/Vol] 15 mg/dL 7-18 [facility] Thin prep Papanicolaou smear with manual screeningOrdered By: Dr. Perdomo on 12-26-2022 Thin prep Papanicolaou smear with manual screening 24 U/L 15-37 [facility] Thin prep Papanicolaou smear with manual screening 11 5-15 [facility] Absolute lymphocyte countOrd ered By: Dr. Perdomo on 11-26-2022 Lymphocytes Auto (Unsp spec) [#/Vol] 3.27 10*3/uL 0.83-4.51 [facility] Basophil percentageOrdered B y: Dr. Perdomo on 11-26-2022 Basophils/100 WBC (Bld) 0.3 % 0-1 [facility] Bilirubin [Mass/Vol] 0.50 mg/dL 0.20-1.00 [facility] Comment on above: For patients on eltr ombopag therapy, use of Dim[employer] [place] TBIL is not recommended. Chloride [Moles/Vol] 105 mmol/L 98-107 [facility] Eosinophils/100 WBC (Bld) 0.1 % 0-5 [facility] Glucose [Mass/Vol] 92 mg/dL 74-[address] [facility] Neutrophils (Bld) [#/Vol] 4.3 10*3/uL 2.0-7.7 [facility] Neutrophils/100 WBC (Bld) 54.2 % 47-70 [facility] Potassium [Moles/Vol] 3.7 mmol/L 3.5-5.1 [facility] Protein [Mass/Vol] 7.5 g/dL 6.4-8.[address] [facility] Sodium [Moles/Vol] 141 mmol/L 136-[address] [facility] WBC (Bld) [#/Vol] 7.8 10*3/uL 4.4-11.[address] [facility] Blood erythrocytes count (nu mber/volume)Ordered By: Dr. Perdomo on 11-26-2022 RBC (Bld) [#/Vol] 4.16 10*6/uL 4.2-5.4 [facility] Blood hemoglobin measurement (mass/volume)Ordered By: Dr. Perdomo on 11-26-2022 Hemoglobin (Bld) [Mass/Vol] 12.7 g/dL 12.0-15.0 [facility] Blood lymphocytes/100 leukoc ytesOrdered By: Dr. Perdomo on 11-26-2022 Lymphocytes/100 WBC (Bld) 41.8 % 19-41 [facility] Blood monocytes/100 leukocyt esOrdered By: Dr. Perdomo on 11-26-2022 Monocytes/100 WBC (Bld) 3.3 % 0-10 [facility] Blood platelet mean volumeOr dered By: Dr. Perdomo on 11-26-2022 Platelet mean volume (Bld) [Entitic vol] 10.7 fL 6.2-12.0 [facility] Determination of erythrocyte mean corpuscular volume (MCV)Ordered By: Dr. Perdomo on 11-26-2022 MCV (RBC) [Entitic vol] 95.7 fL 81-99 [facility] Hematocrit Auto (Bld) [Volum e fraction]Ordered By: Dr. Perdomo on 11-26-2022 Hematocrit (Bld) [Volume fraction] 39.8 % 37-47 [facility] - Chemistry and C hemistry - challengeOrdered By: Dr. Perdomo on 11-26-2022 ALP [Catalytic activity/Vol] 82 U/L 45-117 [facility] ALT [Catalytic activity/Vol] 80 U/L 13-56 [facility] CO2 [Moles/Vol] 25.0 mmol/L 21.0-32.0 [facility] Globulin (S) [Mass/Vol] 3.0 g/dL 2.2-4.2 [facility] Urea nitrogen/Creatinine [Mass ratio] 18.7 mg/mg 10-20 [facility] - Hematology and Cell countsOrdered By: Dr. Perdomo on 11-26-2022 Erythrocyte distribution width (RBC) [Entitic vol] 49.1 fL 35.1-43.9 [facility] Erythrocyte distribution width (RBC) [Ratio] 13.9 % 11.6-14.6 [facility] Immature granulocytes/100 WBC (Bld) 0.300 % 0.0-0.9 [facility] Comment on above: IG% - Immature Granu locytes (promyelocytes, myelocytes and metamyelocytes) > 1% indicates that a LEFT SHIFT is Present. MCH (RBC) [Entitic mass] 30.5 pg 27.0-32.0 [facility] Nucleated RBC/100 WBC (Bld) [Ratio] 0 % 0-5 [facility] MCHC Auto (RBC) [Mass/Vol]Or dered By: Dr. Perdomo on 11-26-2022 MCHC (RBC) [Mass/Vol] 31.9 g/dL 32-36 [facility] No Panel InformationOrdered By: Dr. Perdomo on 11-26-2022 Estimated GFR (MDRD) Amer 95 mL/min >60 [facility] Comment on above: GFR Calc Estimated GFR (MDRD) Non-Af Amer 79 mL/min >60 [facility] Comment on above: Non- GFR Calc Platelets bldOrdered By: Dr. Perdomo on 11-26-2022 Platelets (Bld) [#/Vol] 272 10*3/uL 150-450 [facility] Serum or plasma albumin ron urement (mass/volume)Ordered By: Dr. Perdomo on 11-26-2022 Albumin [Mass/Vol] 4.5 g/dL 3.2-5.[address] [facility] Serum or plasma albumin/glob ulin mass ratioOrdered By: Dr. Perdomo on 11-26-2022 Albumin/Globulin [Mass ratio] 1.5 {ratio} 0.9-2.4 [facility] Serum or plasma calcium ron urement (mass/volume)Ordered By: Dr. Perdomo on 11-26-2022 Calcium [Mass/Vol] 9.7 mg/dL 8.5-10.[address] [facility] Serum or plasma creatinine m easurement (mass/volume)Ordered By: Dr. Perdomo on 11-26-2022 Creatinine [Mass/Vol] 0.80 mg/dL 0.55-1.02 [facility] Comment on above: The validity of the calculated GFR & GFRAA in patients over 70 years has not been determined. Clinical correlation is essential. Serum or plasma urea nitroge n measurement (mass/volume)Ordered By: Dr. Perdomo on 11-26-2022 Urea nitrogen [Mass/Vol] 15 mg/dL 7-18 [facility] Thin prep Papanicolaou smear with manual screeningOrdered By: Dr. Perdomo on 11-26-2022 Thin prep Papanicolaou smear with manual screening 42 U/L 15-37 [facility] Thin prep Papanicolaou smear with manual screening 11 5-15 [facility] Absolute lymphocyte countOrd ered By: Dr. Perdomo on 08-27-2022 Lymphocytes Auto (Unsp spec) [#/Vol] 3.57 10*3/uL 0.83-4.51 [facility] Basophil percentageOrdered B y: Dr. Perdomo on 08-27-2022 Basophils/100 WBC (Bld) 0.3 % 0-1 [facility] Bilirubin [Mass/Vol] 0.30 mg/dL 0.20-1.00 [facility] Comment on above: For patients on eltr ombopag therapy, use of Dim[employer] [place] TBIL is not recommended. Chloride [Moles/Vol] 102 mmol/L 98-107 [facility] Eosinophils/100 WBC (Bld) 0.6 % 0-5 [facility] Glucose [Mass/Vol] 84 mg/dL 74-[address] [facility] Neutrophils (Bld) [#/Vol] 3.0 10*3/uL 2.0-7.7 [facility] Neutrophils/100 WBC (Bld) 42.8 % 47-70 [facility] Potassium [Moles/Vol] 3.6 mmol/L 3.5-5.1 [facility] Protein [Mass/Vol] 7.4 g/dL 6.4-8.[address] [facility] Sodium [Moles/Vol] 138 mmol/L 136-[address] [facility] WBC (Bld) [#/Vol] 7.0 10*3/uL 4.4-11.[address] [facility] Blood erythrocytes count (nu mber/volume)Ordered By: Dr. Perdomo on 08-27-2022 RBC (Bld) [#/Vol] 4.12 10*6/uL 4.2-5.4 [facility] Blood hemoglobin measurement (mass/volume)Ordered By: Dr. Perdomo on 08-27-2022 Hemoglobin (Bld) [Mass/Vol] 12.9 g/dL 12.0-15.0 [facility] Blood lymphocytes/100 leukoc ytesOrdered By: Dr. Perdomo on 08-27-2022 Lymphocytes/100 WBC (Bld) 51.3 % 19-41 [facility] Blood monocytes/100 leukocyt esOrdered By: Dr. Perdomo on 10-17-2022 Monocytes/100 WBC (Bld) 4.9 % 0-10 [facility] Blood platelet mean volumeOr dered By: Dr. Perdomo on 08-27-2022 Platelet mean volume (Bld) [Entitic vol] 11.2 fL 6.2-12.0 [facility] Determination of erythrocyte mean corpuscular volume (MCV)Ordered By: Dr. Perdomo on 08-27-2022 MCV (RBC) [Entitic vol] 94.7 fL 81-99 [facility] Hematocrit Auto (Bld) [Volum e fraction]Ordered By: Dr. Perdomo on 08-27-2022 Hematocrit (Bld) [Volume fraction] 39.0 % 37-47 [facility] Laboratory - Chemistry and C hemistry - challengeOrdered By: Dr. Perdomo on 08-27-2022 ALP [Catalytic activity/Vol] 79 U/L 45-117 [facility] ALT [Catalytic activity/Vol] 55 U/L 13-56 [facility] CO2 [Moles/Vol] 27.0 mmol/L 21.0-32.0 [facility] Globulin (S) [Mass/Vol] 3.4 g/dL 2.2-4.2 [facility] Urea nitrogen/Creatinine [Mass ratio] 15.3 mg/mg 10-20 [facility] Laboratory - Hematology and Cell countsOrdered By: Dr. Perdomo on 08-27-2022 Erythrocyte distribution width (RBC) [Entitic vol] 47.4 fL 35.1-43.9 [facility] Erythrocyte distribution width (RBC) [Ratio] 13.7 % 11.6-14.6 [facility] Immature granulocytes/100 WBC (Bld) 0.100 % 0.0-0.9 [facility] Comment on above: IG% - Immature Granu locytes (promyelocytes, myelocytes and metamyelocytes) > 1% indicates that a LEFT SHIFT is Present. MCH (RBC) [Entitic mass] 31.3 pg 27.0-32.0 [facility] Nucleated RBC/100 WBC (Bld) [Ratio] 0 % 0-5 [facility] MCHC Auto (RBC) [Mass/Vol]Or dered By: Dr. Perdomo on 08-27-2022 MCHC (RBC) [Mass/Vol] 33.1 g/dL 32-36 [facility] No Panel InformationOrdered By: Dr. Perdomo on 08-27-2022 Estimated GFR (MDRD) Amer 89 mL/min >60 [facility] Comment on above: GFR Calc Estimated GFR (MDRD) Non-Af Amer 74 mL/min >60 [facility] Comment on above: Non- GFR Calc Platelets bldOrdered By: Dr. Perdomo on 08-27-2022 Platelets (Bld) [#/Vol] 242 10*3/uL 150-450 [facility] Serum or plasma albumin ron urement (mass/volume)Ordered By: Dr. Perdomo on 08-27-2022 Albumin [Mass/Vol] 4.0 g/dL 3.2-5.[address] [facility] Serum or plasma albumin/glob ulin mass ratioOrdered By: Dr. Perdomo on 08-27-2022 Albumin/Globulin [Mass ratio] 1.2 {ratio} 0.9-2.4 [facility] Serum or plasma calcium ron urement (mass/volume)Ordered By: Dr. Perdomo on 08-27-2022 Calcium [Mass/Vol] 9.3 mg/dL 8.5-10.[address] [facility] Serum or plasma creatinine m easurement (mass/volume)Ordered By: Dr. Perdomo on 08-27-2022 Creatinine [Mass/Vol] 0.85 mg/dL 0.55-1.02 [facility] Comment on above: The validity of the calculated GFR & GFRAA in patients over 70 years has not been determined. Clinical correlation is essential. Serum or plasma urea nitroge n measurement (mass/volume)Ordered By: Dr. Perdomo on 08-27-2022 Urea nitrogen [Mass/Vol] 13 mg/dL - [facility] Thin prep Papanicolaou smear with manual screeningOrdered By: Dr. Perdomo on 08-27-2022 Thin prep Papanicolaou smear with manual screening 33 U/L 15-37 [facility] Thin prep Papanicolaou smear with manual screening 9 5-15 [facility] Absolute lymphocyte counton 05-28-2022 Lymphocytes Auto (Unsp spec) [#/Vol] 3.21 10*3/uL 0.83-4.51 [facility] Work Phone: Basophil percentageon 2021 Basophils/100 WBC (Bld) 0.5 % 0-1 [facility] Work Phone: Bilirubin [Mass/Vol] 0.20 mg/dL 0.20-1.00 [facility] Work Phone: Comment on above: For patients on eltr ombopag therapy, use of Dimension [place] TBIL is not recommended. Chloride [Moles/Vol] 104 mmol/L 98-107 [facility] Work Phone: Eosinophils/100 WBC (Bld) 0.7 % 0-5 [facility] Work Phone: Glucose [Mass/Vol] 87 mg/dL 74-[address] [facility] Work Phone: Neutrophils (Bld) [#/Vol] 3.6 10*3/uL 2.0-7.7 [facility] Work Phone: Neutrophils/100 WBC (Bld) 48.7 % 47-70 [facility] Work Phone: Potassium [Moles/Vol] 3.5 mmol/L 3.5-5.1 [facility] Work Phone: Protein [Mass/Vol] 7.4 g/dL 6.4-8.[address] [facility] Work Phone: Sodium [Moles/Vol] 139 mmol/L 136-[address] [facility] Work Phone: WBC (Bld) [#/Vol] 7.3 10*3/uL 4.4-11.[address] [facility] Work Phone: Blood erythrocytes count (nu mber/volume)on 05-28-2022 RBC (Bld) [#/Vol] 4.12 10*6/uL 4.2-5.4 [facility] Work Phone: Blood hemoglobin measurement (mass/volume)on 05-28-2022 Hemoglobin (Bld) [Mass/Vol] 13.0 g/dL 12.0-15.0 [facility] Work Phone: Blood lymphocytes/100 leukoc yteson 05-28-2022 Lymphocytes/100 WBC (Bld) 43.7 % 19-41 [facility] Work Phone: Blood monocytes/100 leukocyt eson 05-28-2022 Monocytes/100 WBC (Bld) 6.1 % 0-10 [facility] Work Phone: Blood platelet mean volumeon 05-28-2022 Platelet mean volume (Bld) [Entitic vol] 10.8 fL 6.2-12.0 [facility] Work Phone: Determination of erythrocyte mean corpuscular volume (MCV)on 05-28-2022 MCV (RBC) [Entitic vol] 93.9 fL 81-99 [facility] Work Phone: Hematocrit Auto (Bld) [Volum e fraction]on 05-28-2022 Hematocrit (Bld) [Volume fraction] 38.7 % 37-47 [facility] Work Phone: Laboratory - Chemistry and C hemistry - challengeon 05-28-2022 ALP [Catalytic activity/Vol] 79 U/L 45-117 [facility] Work Phone: ALT [Catalytic activity/Vol] 38 U/L 13-56 [facility] Work Phone: CO2 [Moles/Vol] 26.0 mmol/L 21.0-32.0 [facility] Work Phone: [phone] Globulin (S) [Mass/Vol] 3.4 g/dL 2.2-4.2 [facility] Work Phone: Urea nitrogen/Creatinine [Mass ratio] 14.6 mg/mg 10-20 [facility] Work Phone: Laboratory - Hematology and Cell countson 05-28-2022 Erythrocyte distribution width (RBC) [Entitic vol] 49.8 fL 35.1-43.9 [facility] Work Phone: Erythrocyte distribution width (RBC) [Ratio] 14.4 % 11.6-14.6 [facility] Work Phone: Immature granulocytes/100 WBC (Bld) 0.300 % 0.0-0.9 [facility] Work Phone: Comment on above: IG% - Immature Granu locytes (promyelocytes, myelocytes and metamyelocytes) > 1% indicates that a LEFT SHIFT is Present. MCH (RBC) [Entitic mass] 31.6 pg 27.0-32.0 [facility] Work Phone: Nucleated RBC/100 WBC (Bld) [Ratio] 0 % 0-5 [facility] Work Phone: MCHC Auto (RBC) [Mass/Vol]on 05-28-2022 MCHC (RBC) [Mass/Vol] 33.6 g/dL 32-36 [facility] Work Phone: No Panel Informationon 05-28 Estimated GFR (MDRD) Amer 93 mL/min >60 [facility] Work Phone: Comment on above: GFR Calc Estimated GFR (MDRD) Non-Af Amer 77 mL/min >60 [facility] Work Phone: Comment on above: Non- GFR Calc Platelets bldon 05-28-2022 Platelets (Bld) [#/Vol] 236 10*3/uL 150-450 [facility] Work Phone: Serum or plasma albumin ron urement (mass/volume)on 05-28-2022 Albumin [Mass/Vol] 4.0 g/dL 3.2-5.[address] [facility] Work Phone: Serum or plasma albumin/glob ulin mass ratioon 05-28-2022 Albumin/Globulin [Mass ratio] 1.2 {ratio} 0.9-2.4 [facility] Work Phone: Serum or plasma calcium ron urement (mass/volume)on 05-28-2022 Calcium [Mass/Vol] 9.3 mg/dL 8.5-10.[address] [facility] Work Phone: Serum or plasma creatinine m easurement (mass/volume)on 05-28-2022 Creatinine [Mass/Vol] 0.82 mg/dL 0.55-1.02 [facility] Work Phone: Comment on above: The validity of the calculated GFR & GFRAA in patients over 70 years has not been determined. Clinical correlation is essential. Serum or plasma urea nitroge n measurement (mass/volume)on 05-28-2022 Urea nitrogen [Mass/Vol] 12 mg/dL -18 [facility] Work Phone: Thin prep Papanicolaou smear with manual screeningon 05-28-2022 Thin prep Papanicolaou smear with manual screening 25 U/L 15-37 [facility] Work Phone: Thin prep Papanicolaou smear with manual screening 9 5-15 [facility] Work Phone: Basophil percentageon 2021 Bilirubin [Mass/Vol] 0.30 mg/dL 0.20-1.00 [facility] Work Phone: Comment on above: For patients on eltr ombopag therapy, use of [employer] [place] TBIL is not recommended. Chloride [Moles/Vol] 102 mmol/L 98-107 [facility] Work Phone: Glucose [Mass/Vol] 99 mg/dL 74-[address] [facility] Work Phone: Potassium [Moles/Vol] 3.5 mmol/L 3.5-5.1 [facility] Work Phone: Protein [Mass/Vol] 8.0 g/dL 6.4-8.[address] [facility] Work Phone: Sodium [Moles/Vol] 137 mmol/L 136-[address] [facility] Work Phone: Laboratory - Chemistry and C hemistry - challengeon 04-04-2022 ALP [Catalytic activity/Vol] 74 U/L 45-117 [facility] Work Phone: ALT [Catalytic activity/Vol] 38 U/L 13-56 [facility] Work Phone: CO2 [Moles/Vol] 26.0 mmol/L 21.0-32.0 [facility] Work Phone: Globulin (S) [Mass/Vol] 3.5 g/dL 2.2-4.2 [facility] Work Phone: Urea nitrogen/Creatinine [Mass ratio] 21.9 mg/mg 10-20 [facility] Work Phone: No Panel Informationon 04-04 Estimated GFR (MDRD) Amer 87 mL/min >60 [facility] Work Phone: Comment on above: GFR Calc Estimated GFR (MDRD) Non-Af Amer 72 mL/min >60 [facility] Work Phone: Comment on above: Non- GFR Calc Serum or plasma albumin ron urement (mass/volume)on 04-04-2022 Albumin [Mass/Vol] 4.5 g/dL 3.2-5.[address] [facility] Work Phone: Serum or plasma albumin/glob ulin mass ratioon 04-04-2022 Albumin/Globulin [Mass ratio] 1.3 {ratio} 0.9-2.4 [facility] Work Phone: Serum or plasma calcium ron urement (mass/volume)on 04-04-2022 Calcium [Mass/Vol] 9.3 mg/dL 8.5-10.[address] [facility] Work Phone: Serum or plasma creatinine m easurement (mass/volume)on 04-04-2022 Creatinine [Mass/Vol] 0.87 mg/dL 0.55-1.02 [facility] Work Phone: Comment on above: The validity of the calculated GFR & GFRAA in patients over 70 years has not been determined. Clinical correlation is essential. Serum or plasma urea nitroge n measurement (mass/volume)on 04-04-2022 Urea nitrogen [Mass/Vol] 19 mg/dL 7-18 [facility] Work Phone: Thin prep Papanicolaou smear with manual screeningon 04-04-2022 Thin prep Papanicolaou smear with manual screening 17 U/L 15-37 [facility] Work Phone: Thin prep Papanicolaou smear with manual screening 9 5-15 [facility] Work Phone: Absolute lymphocyte counton 03-05-2022 Lymphocytes Auto (Unsp spec) [#/Vol] 3.36 10*3/uL 0.83-4.51 [facility] Work Phone: Basophil percentageon 2021 Basophils/100 WBC (Bld) 0.5 % 0-1 [facility] Work Phone: Bilirubin [Mass/Vol] 0.30 mg/dL 0.20-1.00 [facility] Work Phone: Comment on above: For patients on eltr ombopag therapy, use of [employer] [place] TBIL is not recommended. Chloride [Moles/Vol] 103 mmol/L 98-107 [facility] Work Phone: Eosinophils/100 WBC (Bld) 0.9 % 0-5 [facility] Work Phone: Glucose [Mass/Vol] 100 mg/dL 74-[address] [facility] Work Phone: Comment on above: Fasting Glucose resu lt from 100 to 125 mg/dL suggests IMPAIRED HOMEOSTASIS per A.D.A. criteria. Neutrophils (Bld) [#/Vol] 3.9 10*3/uL 2.0-7.7 [facility] Work Phone: Neutrophils/100 WBC (Bld) 50.7 % 47-70 [facility] Work Phone: Potassium [Moles/Vol] 3.6 mmol/L 3.5-5.1 [facility] Work Phone: Protein [Mass/Vol] 7.6 g/dL 6.4-8.[address] [facility] Work Phone: Sodium [Moles/Vol] 136 mmol/L 136-[address] [facility] Work Phone: WBC (Bld) [#/Vol] 7.7 10*3/uL 4.4-11.[address] [facility] Work Phone: Blood erythrocytes count (nu mber/volume)on 03-05-2022 RBC (Bld) [#/Vol] 4.08 10*6/uL [facility].2-5.[facility]: Blood hemoglobin measurement (mass/volume)on 03-05-2022 Hemoglobin (Bld) [Mass/Vol] 12.6 g/dL 12.0-15.0 [facility] Work Phone: Blood lymphocytes/100 leukoc yteson 03-05-2022 Lymphocytes/100 WBC (Bld) 43.6 % 19-41 [facility] Work Phone: Blood monocytes/100 leukocyt eson 03-05-2022 Monocytes/100 WBC (Bld) 4.2 % 0-10 [facility] Work Phone: Blood platelet mean volumeon 03-05-2022 Platelet mean volume (Bld) [Entitic vol] 10.7 fL 6.2-12.0 [facility] Work Phone: Determination of erythrocyte mean corpuscular volume (MCV)on 03-05-2022 MCV (RBC) [Entitic vol] 91.2 fL 81-99 [facility] Work Phone: Hematocrit Auto (Bld) [Volum e fraction]on 03-05-2022 Hematocrit (Bld) [Volume fraction] 37.2 % 37-47 [facility] Work Phone: Laboratory - Chemistry and C hemistry - challengeon 03-05-2022 ALP [Catalytic activity/Vol] 76 U/L 45-117 [facility] Work Phone: ALT [Catalytic activity/Vol] 57 U/L 13-56 [facility] Work Phone: CO2 [Moles/Vol] 25.0 mmol/L 21.0-32.0 [facility] Work Phone: Globulin (S) [Mass/Vol] 3.6 g/dL 2.2-4.2 [facility] Work Phone: Urea nitrogen/Creatinine [Mass ratio] 20.1 mg/mg 10-20 [facility] Work Phone: Laboratory - Hematology and Cell countson 03-05-2022 Erythrocyte distribution width (RBC) [Entitic vol] 46.1 fL 35.1-43.9 [facility] Work Phone: Erythrocyte distribution width (RBC) [Ratio] 13.7 % 11.6-14.6 [facility] Work Phone: Immature granulocytes/100 WBC (Bld) 0.100 % 0.0-0.9 [facility] Work Phone: Comment on above: IG% - Immature Granu locytes (promyelocytes, myelocytes and metamyelocytes) > 1% indicates that a LEFT SHIFT is Present. MCH (RBC) [Entitic mass] 30.9 pg 27.0-32.0 [facility] Work Phone: Nucleated RBC/100 WBC (Bld) [Ratio] 0 % 0-5 [facility] Work Phone: MCHC Auto (RBC) [Mass/Vol]on 03-05-2022 MCHC (RBC) [Mass/Vol] 33.9 g/dL 32-36 [facility] Work Phone: No Panel Informationon 03-05 Estimated GFR (MDRD) Amer 90 mL/min >60 [facility] Work Phone: Comment on above: GFR Calc Estimated GFR (MDRD) Non-Af Amer 75 mL/min >60 [facility] Work Phone: Comment on above: Non- GFR Calc Platelets bldon 03-05-2022 Platelets (Bld) [#/Vol] 247 10*3/uL 150-450 [facility] Work Phone: Serum or plasma albumin ron urement (mass/volume)on 03-05-2022 Albumin [Mass/Vol] 4.0 g/dL 3.2-5.[address] [facility] Work Phone: Serum or plasma albumin/glob ulin mass ratioon 03-05-2022 Albumin/Globulin [Mass ratio] 1.1 {ratio} 0.9-2.4 [facility] Work Phone: Serum or plasma calcium ron urement (mass/volume)on 03-05-2022 Calcium [Mass/Vol] 9.0 mg/dL 8.5-10.[address] [facility] Work Phone: Serum or plasma creatinine m easurement (mass/volume)on 03-05-2022 Creatinine [Mass/Vol] 0.84 mg/dL 0.55-1.02 [facility] Work Phone: Comment on above: The validity of the calculated GFR & GFRAA in patients over 70 years has not been determined. Clinical correlation is essential. Serum or plasma urea nitroge n measurement (mass/volume)on 03-05-2022 Urea nitrogen [Mass/Vol] 17 mg/dL 7-18 [facility] Work Phone: Thin prep Papanicolaou smear with manual screeningon 03-05-2022 Thin prep Papanicolaou smear with manual screening 37 U/L 15-37 [facility] Work Phone: Thin prep Papanicolaou smear with manual screening 8 5-15 [facility] Work Phone: SURGICAL PATHOLOGYon 022 CASE REPORT Normal [facility] Comment on above: Order Comment: Speci men Type: TISSUE SPECIMEN Ordering Facility: [facility] Address: [address] [place] [address] Result Comment: Surg ical Pathology Report Case: [id number] Authorizing Provider: Danielle Orr MD Collected: 02/15/2022 09:35 AM Ordering Location: [facility] Received: 02/16/2022 06:44 AM Pathologist: Fan Hernandez MD Specimen: [id number] Performed By: #### S #### [facility] CLIA [id number] [address] FINAL DIAGNOSIS Normal [facility] Comment on above: Order 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 G allbladder, cholecystectomy: - Chronic cholecystitis and cholelithiasis. Performed By: #### S #### [facility] CLIA [id number] [address] [place] [address] FINAL PERFORMING LAB Normal [facility] Comment on above: Order Comment: Afshan driver Type: TISSUE SPECIMEN Ordering Facility: [facility] Address: [address] [place] [address] Result Comment: Diag nostic interpretation performed at [facility], [address] [place] [address] CLIA# [id number] Head Host/Hostess: Srikanth Mattson M.D. Performed By: #### S #### [facility] CLIA [id number] [address] [place] [address] GROSS DESCRIPTION A. GALLBLADDER. Normal [facility] Comment on above: Order Comment: Afshan driver Type: TISSUE SPECIMEN Ordering Facility: [facility] Address: [address] [place] [address] Result Comment: Rece ived in formalin labeled ``gallbladder? is a gallbladder measuring 6 x 2.5 x 1.0 cm. The serosal aspect is pink and smooth. A defect is not present. The lumen contains bile. The wall of the gallbladder averages 0.2 cm in thickness. Calculi are present and appear dark green in color. A calculus is not impacted in the cystic duct. The calculi range in size from 0.1 to 0.3 cm in greatest dimension. The mucosa is bile-stained. Body Worker sections are submitted in one cassette. Gross examination performed at [facility], [address] [place] [id number] CLIA#[id number] [facility] February 16, 2022 11:33 AM Performed By: #### S #### [facility] CLIA [id number] [address] [place] [address] [place] XR CHOLANGIOGRAM INTRAOPon 0 02-15-2022 XR CHOLANGIOGRAM INTRAOP * * *Final Report* * * DATE OF EXAM: Feb 15 2022 1:48PM LDX 5421 - XR CHOLANGIOGRAM INTRAOP / PROCEDURE REASON: Calculus of Gallbladder w/cholecystitis w/out billiary obstruction K80.10 * * * * Physician Interpretation * * * * EXAM TITLE: INTRAOPERATIVE CHOLANGIOGRAM DATE: February 15, 2022 1:43 PM COMPARISON: Ultrasound of the right upper quadrant from February 08, 2022 CLINICAL INDICATION/HISTORY: The patient is a 56-year-old female with known cholelithiasis treated with laparoscopic cholecystectomy. TECHNIQUE: 2 spot films from an intraoperative cholangiogram performed by Dr. Orr are presented for interpretation. 0 minutes and 4 seconds of fluoroscopy time was utilized during the procedure. Fluoroscopy Radiation dose: Integrated dose-area product (DAP) for this visit = no dose reported mGy*cm. FINDINGS: There is excellent opacification of the cystic duct, common bile duct, intrahepatic biliary radicles, and duodenum. There is no filling defect, stricture, dilation, mucosal abnormality, or extrinsic compression. IMPRESSION: No significant abnormality on intraoperative cholangiogram. Trampoline Team Coach: PSCB Transcribe Date/Time: Feb 15 2022 4:09P Dictated by : ANN RAMSEY MD This examination was interpreted and the report reviewed and electronically signed by: ANN RAMSEY MD on Feb 15 2022 4:10PM EST [id number] Normal [facility] No Panel Informationon 02-08 [facility] Absolute lymphocyte counton 12-12-2021 Lymphocytes Auto (Unsp spec) [#/Vol] 3.74 10*3/uL 0.83-4.51 [facility] Work Phone: Basophil percentageon 2021 Basophils/100 WBC (Bld) 0.4 % 0-1 [facility] Work Phone: Bilirubin [Mass/Vol] 0.30 mg/dL 0.20-1.00 [facility] Work Phone: Comment on above: For patients on eltr ombopag therapy, use of [employer] [place] TBIL is not recommended. Chloride [Moles/Vol] 104 mmol/L 98-107 [facility] Work Phone: Eosinophils/100 WBC (Bld) 0.9 % 0-5 [facility] Work Phone: Glucose [Mass/Vol] 118 mg/dL 74-[address] [facility] Work Phone: Comment on above: Fasting Glucose resu lt from 100 to 125 mg/dL suggests IMPAIRED HOMEOSTASIS per A.D.A. criteria. Neutrophils (Bld) [#/Vol] 3.6 10*3/uL 2.0-7.7 [facility] Work Phone: Neutrophils/100 WBC (Bld) 45.4 % 47-70 [facility] Work Phone: Potassium [Moles/Vol] 3.4 mmol/L 3.5-5.1 [facility] Work Phone: [phone] Protein [Mass/Vol] 7.3 g/dL 6.4-8.[address] [facility] Work Phone: Sodium [Moles/Vol] 138 mmol/L 136-[address] [facility] Work Phone: WBC (Bld) [#/Vol] 7.9 10*3/uL 4.4-11.[address] [facility] Work Phone: Blood erythrocytes count (nu mber/volume)on 12-12-2021 RBC (Bld) [#/Vol] 3.90 10*6/uL 4.2-5.4 [facility] Work Phone: Blood hemoglobin measurement (mass/volume)on 12-12-2021 Hemoglobin (Bld) [Mass/Vol] 12.0 g/dL 12.0-15.0 [facility] Work Phone: Blood lymphocytes/100 leukoc yteson 12-12-2021 Lymphocytes/100 WBC (Bld) 47.6 % 19-41 [facility] Work Phone: Blood monocytes/100 leukocyt eson 12-12-2021 Monocytes/100 WBC (Bld) 5.6 % 0-10 [facility] Work Phone: Blood platelet mean volumeon 12-12-2021 Platelet mean volume (Bld) [Entitic vol] 11.2 fL 6.2-12.0 [facility] Work Phone: Determination of erythrocyte mean corpuscular volume (MCV)on 12-12-2021 MCV (RBC) [Entitic vol] 95.1 fL 81-99 [facility] Work Phone: Hematocrit Auto (Bld) [Volum e fraction]on 12-12-2021 Hematocrit (Bld) [Volume fraction] 37.1 % 37-47 [facility] Work Phone: Laboratory - Chemistry and C hemistry - challengeon 12-12-2021 ALP [Catalytic activity/Vol] 70 U/L 45-117 [facility] Work Phone: ALT [Catalytic activity/Vol] 39 U/L 13-56 [facility] Work Phone: CO2 [Moles/Vol] 28.0 mmol/L 21.0-32.0 [facility] Work Phone: Globulin (S) [Mass/Vol] 3.3 g/dL 2.2-4.2 [facility] Work Phone: Urea nitrogen/Creatinine [Mass ratio] 12.0 mg/mg 10-20 [facility] Work Phone: Laboratory - Hematology and Cell countson 12-12-2021 Erythrocyte distribution width (RBC) [Entitic vol] 46.9 fL 35.1-43.9 [facility] Work Phone: Erythrocyte distribution width (RBC) [Ratio] 13.4 % 11.6-14.6 [facility] Work Phone: Immature granulocytes/100 WBC (Bld) 0.100 % 0.0-0.9 [facility] Work Phone: Comment on above: IG% - Immature Granu locytes (promyelocytes, myelocytes and metamyelocytes) > 1% indicates that a LEFT SHIFT is Present. MCH (RBC) [Entitic mass] 30.8 pg 27.0-32.0 [facility] Work Phone: Nucleated RBC/100 WBC (Bld) [Ratio] 0 % 0-5 [facility] Work Phone: MCHC Auto (RBC) [Mass/Vol]on 12-12-2021 MCHC (RBC) [Mass/Vol] 32.3 g/dL 32-36 [facility] Work Phone: No Panel Informationon 12-12 Estimated GFR (MDRD) Amer 82 mL/min >60 [facility] Work Phone: Comment on above: GFR Calc Estimated GFR (MDRD) Non-Af Amer 68 mL/min >60 [facility] Work Phone: Comment on above: Non- GFR Calc Platelets bldon 12-12-2021 Platelets (Bld) [#/Vol] 223 10*3/uL 150-450 [facility] Work Phone: Serum or plasma albumin ron urement (mass/volume)on 12-12-2021 Albumin [Mass/Vol] 4.0 g/dL 3.2-5.[address] [facility] Work Phone: Serum or plasma albumin/glob ulin mass ratioon 12-12-2021 Albumin/Globulin [Mass ratio] 1.2 {ratio} 0.9-2.4 [facility] Work Phone: Serum or plasma calcium ron urement (mass/volume)on 12-12-2021 Calcium [Mass/Vol] 9.0 mg/dL 8.5-10.[address] [facility] Work Phone: Serum or plasma creatinine m easurement (mass/volume)on 12-12-2021 Creatinine [Mass/Vol] 0.92 mg/dL 0.55-1.02 [facility] Work Phone: Comment on above: The validity of the calculated GFR & GFRAA in patients over 70 years has not been determined. Clinical correlation is essential. Serum or plasma urea nitroge n measurement (mass/volume)on 12-12-2021 Urea nitrogen [Mass/Vol] 11 mg/dL 7-18 [facility] Work Phone: Thin prep Papanicolaou smear with manual screeningon 12-12-2021 Thin prep Papanicolaou smear with manual screening 22 U/L 15-37 [facility] Work Phone: Thin prep Papanicolaou smear with manual screening 6 5-15 [facility] Work Phone: XR Foot - left AP and Latera l and obliqueon 10-24-2021 IMPRESSION: No acute radiographic abnormalities identified in the left foot. Other findings as described above. Trampoline Team Coach: PSCB Transcribe Date/Time: Oct 24 2021 4:50P Dictated by : ALICIA LANG MD This examination was interpreted and the report reviewed and electronically signed by: ALICIA LANG MD on Oct 24 2021 4:54PM [facility] DIVISION OF RADIOLOGY * * *Final Report* * * DATE OF EXAM: Oct 24 2021 4:49PM [id number] - XR FOOT 3V AP/LAT/OBL LT / PROCEDURE REASON: Foot pain, left * * * * Physician Interpretation * * * * EXAM TITLE: XR FOOT 3V AP/LAT/OBL LT EXAM DATE/TIME: 10/24/2021 4:49 PM COMPARISON: Foot x-ray on 01/13/2020 CLINICAL INDICATION/HISTORY: Foot pain. TECHNIQUE: AP, lateral and oblique views of the left foot are presented. FINDINGS: No acute fractures or subluxations are noted. Interval improvement of previously mentioned patchy periarticular osteopenia in the second through fourth metatarsophalangeal joints. Achilles/calcaneal enthesopathy noted. The mineralization of the bones is normal. There is no significant soft tissue swelling. DIVISION OF RADIOLOGY Provider, Zeeshan jacome [place] - 10/24/2021 * * *Final Report* * * DATE OF EXAM: Oct 24 2021 4:49PM [id number] - XR FOOT 3V AP/LAT/OBL LT / PROCEDURE REASON: Foot pain, left * * * * Physician Interpretation * * * * EXAM TITLE: XR FOOT 3V AP/LAT/OBL LT EXAM DATE/TIME: 10/24/2021 4:49 PM COMPARISON: Foot x-ray on 01/13/2020 CLINICAL INDICATION/HISTORY: Foot pain. TECHNIQUE: AP, lateral and oblique views of the left foot are presented. FINDINGS: No acute fractures or subluxations are noted. Interval improvement of previously mentioned patchy periarticular osteopenia in the second through fourth metatarsophalangeal joints. Achilles/calcaneal enthesopathy noted. The mineralization of the bones is normal. There is no significant soft tissue swelling. IMPRESSION IMPRESSION: No acute radiographic abnormalities identified in the left foot. Other findings as described above. 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-2017 Left ventricular Ejection fraction 65 % Invalid Interpretation Code [facility] Work Phone: [phone] Lab Report: ,Urineo n 03-13-2017 Urine, test (choriogonadotropin presence) Negative Invalid Interpretation Code [facility] Work Phone: [phone] Lab Report: Basic Metabolic Profile (BMP)on 03-12-2017 Anion gap 8 mmol/L Invalid Interpretation Code 5-15 [facility] Work Phone: [phone] BUN/Creatinine Ratio 14.9 RATIO Invalid Interpretation Code 10-20 [facility] Work Phone: [phone] Calcium 8.7 mg/dL Invalid Interpretation Code 8.5-10.1 [facility] Work Phone: [phone] Chloride 107 mmol/L Invalid Interpretation Code 98-107 [facility] Work Phone: [phone] CO2 26.0 mmol/L Invalid Interpretation Code 21.0-32.0 [facility] Work Phone: [phone] Creatinine 0.80 mg/dL Invalid Interpretation Code 0.55-1.02 [place] [facility] Work Phone: [phone] eGFR (non-black) 81 mL/min/{1.73_m2} Invalid Interpretation Code >60 [facility] Work Phone: [phone] eGFR (non-black) 97 mL/min/{1.73_m2} Invalid Interpretation Code >60 [facility] Work Phone: [phone] Glucose 91 mg/dL Invalid Interpretation Code 70-110 [facility] Work Phone: [phone] Potassium 4.1 mmol/L Invalid Interpretation Code 3.5-5.1 [facility] [employer] Work Phone: [phone] Sodium 141 mmol/L Invalid Interpretation Code 136-145 [place] [facility] Work Phone: [phone] Urea nitrogen 12 mg/dL Invalid Interpretation Code 7-18 [place] [facility] Work Phone: [phone] Lab Report: CBC-Complete Blo od Cnt No Diffon 03-12-2017 Erythrocytes (RBC) 3.99 10*6/uL Low 4.2-5.[address] [facility] [address] [facility] Work Phone: [phone] Hematocrit (HCT) 39.8 % Invalid Interpretation Code 37-47 [facility] Work Phone: [phone] Hemoglobin (HGB) 13.1 g/dL Invalid Interpretation Code 12.0-15.0 [facility] Work Phone: [phone] MCH 32.8 pg High 27.0-32.0 [facility] Work Phone: [phone] MCHC 32.9 G/GL Invalid Interpretation Code 32-36 [facility] Work Phone: [phone] MCV 99.7 fL High 81-99 [place] [employer] Work Phone: [phone] Platelets 227 10*3/mm3 Invalid Interpretation Code 150-450 [facility] Work Phone: [phone] PMV by Huong 10.0 fL Invalid Interpretation Code 6.2-12.0 [facility] Work Phone: [phone] RDW-CA 14.2 % Invalid Interpretation Code 11.6-14.6 [employer] Phone: [phone] red blood cell distribution width, size density 51.5 fL High 35.1-43.9 [facility] Work Phone: [phone] WBC (Leukocytes) 5.3 10*3/uL Invalid Interpretation Code 4.4-11.0 [facility] Work Phone: [phone] Lab Report: Lipid Profileon 03-12-2017 Cholesterol 192 mg/dL Invalid Interpretation Code 200 [facility] Work Phone: [phone] HDL Cholesterol 83 mg/dL Invalid Interpretation Code [employer] Phone: [phone] LDL Cholesterol 97 mg/dL Invalid Interpretation Code 0-130 [facility] Work Phone: [phone] Triglyceride 62 mg/dL Invalid Interpretation Code [employer] Phone: [phone] very low density lipoproteins 12 mg/dL Invalid Interpretation Code 5-40 [facility] Work Phone: [phone] Lab Report: Liver Profileon 03-12-2017 Alanine aminotransferase (ALT) 34 U/L Invalid Interpretation Code 12-78 [employer] Phone: [phone] Albumin 4.0 g/dL Invalid Interpretation Code 3.4-5.0 [facility] Work Phone: [phone] Alkaline phosphatase (ALP) 57 U/L Invalid Interpretation Code 45-117 [employer] Phone: [phone] Aspartate aminotransferase (AST) 19 U/L Invalid Interpretation Code 15-37 [facility] Work Phone: [phone] Bilirubin (direct) 0.11 mg/dL Invalid Interpretation Code 0.00-0.30 [facility] Work Phone: [phone] Bilirubin (total) 0.50 mg/dL Invalid Interpretation Code 0.20-1.00 [facility] Work Phone: [phone] Globulin 3.2 g/dL Invalid Interpretation Code 2.3-3.5 [employer] Phone: [phone] Protein 7.2 g/dL Invalid Interpretation Code 6.4-8.2 [employer] Phone: [phone] Lab Report: Partial Thrombop last Timeon 03-12-2017 aPTT 29.3 s Invalid Interpretation Code 24.1-36.2 [employer] Phone: [phone] Lab Report: Prothrombin Time w/INRon 03-12-2017 Coagulation tissue factor induced in platelet poor plasma 12.6 s Invalid Interpretation Code 11.7-14.9 [facility] Work Phone: [phone] INR in blood by coagulation 1.0 {INR} Invalid Interpretation Code [employer] Phone: [phone] Clinical Lists Update: 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 instructional systems designer 03-11-2017 Tobacco use CPHS Never smoker Invalid Interpretation Code [employer] Phone: [phone] Office Visiton 03-11-2017 Dietary management education, guidance, and counseling (procedure) yes Invalid Interpretation Code [employer] Phone: [phone] Documentation of current medications (procedure) Done Invalid Interpretation Code [employer] Phone: [phone] Replaced Document: Sridevi Rosenthal CG Observationson 03-11-2017 electrocardiogram interpretation Sinus Rhythm WITHIN NORMAL LIMITS Invalid Interpretation Code [employer] Phone: [phone] GE use only - for [employer] import when terms are not otherwise specified 398 ms Invalid Interpretation Code [employer] Phone: [phone] P wave axis, electrocardiogram 50 deg Invalid Interpretation Code [employer] Phone: [phone] LA interval, electrocardiogram 170 ms Invalid Interpretation Code [employer] Phone: [phone] Pulse (Heart Rate) 81 /min Invalid Interpretation Code [employer] Phone: [phone] QRS axis, electrocardiogram 34 deg Invalid Interpretation Code [employer] Phone: [phone] QRS duration, electrocardiogram 80 ms Invalid Interpretation Code [employer] Phone: [phone] QT interval, electrocardiogram new path ms Invalid Interpretation Code [employer] Phone: [phone] T wave axis, electrocardiogram 26 deg Invalid Interpretation Code [facility] Work Phone: [phone] Clinical Lists Update: 02-19-2017 Alanine aminotransferase (ALT) 49 U/L Invalid Interpretation Code [facility] Work Phone: [phone] Alkaline phosphatase (ALP) 62 U/L Invalid Interpretation Code [facility] Work Phone: [phone] Aspartate aminotransferase (AST) 28 U/L Invalid Interpretation Code [facility] Work Phone: [phone] Bilirubin (total) 0.40 mg/dL Invalid Interpretation Code [facility] Work Phone: [phone] BUN/Creatinine Ratio 15.1 mg/mg Invalid Interpretation Code [facility] Work Phone: [phone] Chloride 102 mmol/L Invalid Interpretation Code [facility] Work Phone: [phone] CO2 26.0 mmol/L Invalid Interpretation Code [facility] Work Phone: [phone] Creatinine 0.73 mg/dL Invalid Interpretation Code [facility] Work Phone: [phone] Glucose 84 mg/dL Invalid Interpretation Code [facility] Work Phone: [phone] Hematocrit (HCT) 37.4 % Invalid Interpretation Code [facility] Work Phone: [phone] Hemoglobin (HGB) 12.5 g/dL Invalid Interpretation Code [facility] Work Phone: [phone] Platelets 250 10*3/mm3 Invalid Interpretation Code [facility] Work Phone: [phone] Potassium 3.7 mmol/L Invalid Interpretation Code [facility] Work Phone: [phone] Protein 7.4 g/dL Invalid Interpretation Code [facility] Work Phone: [phone] Sodium 137 mmol/L Invalid Interpretation Code [facility] Work Phone: [phone] Urea nitrogen 11 mg/dL Invalid Interpretation Code [facility] Work Phone: [phone] WBC (Leukocytes) 5.7 10*3/uL Invalid Interpretation Code [facility] Work Phone: [phone] Clinical Lists Update: 09-12-2013 Cholesterol 171 mg/dL Invalid Interpretation Code [facility] Work Phone: [phone] HDL Cholesterol 55 mg/dL Invalid Interpretation Code [facility] Work Phone: [phone] LDL Cholesterol 98 mg/dL Invalid Interpretation Code [facility] Work Phone: [phone] Triglyceride 92 mg/dL Invalid Interpretation Code [facility] Work Phone: [phone] Vital Signs Date Time Vital Sign Value Performing Clinician Facility 03-09-2025 09:33-0400 Diastolic blood pressure 57 mm[Hg] Danielle Orr MD Work Phone: [facility] 03-09-2025 09:33-0400 Heart rate 81 /min Danielle Orr MD Work Phone: [facility] 03-09-2025 09:33-0400 Respiratory rate 14 /min Danielle Orr MD Work Phone: [facility] 03-09-2025 09:33-0400 SaO2% (BldA) [Mass fraction] 99 % Danielle Orr MD Work Phone: [facility] 03-09-2025 09:33-0400 Systolic blood pressure 120 mm[Hg] Danielle Orr MD Work Phone: [facility] 03-09-2025 07:42-0400 Body temperature 97.59 [degF] Danielle Orr MD Work Phone: [facility] 02-25-2025 08:15-0400 Body height 156.2 cm Ronni Diaz MD Work Phone: [facility] 02-25-2025 08:15-0400 Body mass index (BMI) [Ratio] 32.98 kg/m2 Ronni Diaz MD Work Phone: [facility] 02-25-2025 08:15-0400 Body weight 80.47 kg Ronni Diaz MD Work Phone: [facility] 02-25-2025 08:15-0400 Diastolic blood pressure 70 mm[Hg] Ronni Diaz MD Work Phone: [facility] 02-25-2025 08:15-0400 Systolic blood pressure 106 mm[Hg] Ronni Diaz MD Work Phone: [facility] 02-22-2025 09:51-0400 Body mass index (BMI) [Ratio] 32.9 kg/m2 Vale Soham DENTAL 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.RETAIL PARTS PROFESSIONAL Work Phone: [facility] 02-22-2025 09:51-0400 Body temperature 97.3 [degF] Vale Soham DENTAL 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.RETAIL PARTS PROFESSIONAL Work Phone: [facility] 02-22-2025 09:51-0400 Body weight 80.29 kg Vale Soham DENTAL 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.RETAIL PARTS PROFESSIONAL Work Phone: [facility] 02-22-2025 09:51-0400 Diastolic blood pressure 83 mm[Hg] Vale Soham DENTAL 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.RETAIL PARTS PROFESSIONAL Work Phone: [facility] 02-22-2025 09:51-0400 Heart rate 77 /min Vale Soham DENTAL 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.RETAIL PARTS PROFESSIONAL Work Phone: [facility] 02-22-2025 09:51-0400 Respiratory rate 16 /min Vale Soham DENTAL 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.RETAIL PARTS PROFESSIONAL Work Phone: [facility] 02-22-2025 09:51-0400 SaO2% (BldA) [Mass fraction] 99 % Vale Soham DENTAL 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.RETAIL PARTS PROFESSIONAL Work Phone: [facility] 02-22-2025 09:51-0400 Systolic blood pressure 129 mm[Hg] Vale Soham DENTAL 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.RETAIL PARTS PROFESSIONAL Work Phone: [facility] 02-17-2025 09:25-0400 Diastolic blood pressure 84 mm[Hg] Herman Murray MD Work Phone: [facility] 02-17-2025 09:25-0400 Systolic blood pressure 138 mm[Hg] Herman Murray MD Work Phone: [facility] 02-17-2025 08:52-0400 Body height 156.2 cm Herman Murray MD Work Phone: [facility] 02-17-2025 08:52-0400 Body mass index (BMI) [Ratio] 32.9 kg/m2 Herman Murray MD Work Phone: [facility] 02-17-2025 08:52-0400 Body weight 80.29 kg Herman Murray MD Work Phone: [facility] 02-17-2025 08:52-0400 Heart rate 86 /min Herman Murray MD Work Phone: [facility] 02-17-2025 08:52-0400 Respiratory rate 18 /min Herman Murray MD Work Phone: [facility] 12-24-2024 10:53-0500 Body height 156.2 cm Herman Murray MD Work Phone: [facility] 12-24-2024 10:53-0500 Body mass index (BMI) [Ratio] 32.72 kg/m2 Herman Murray MD Work Phone: [facility] 12-24-2024 10:53-0500 Body weight 79.83 kg Herman Murrya MD Work Phone: [facility] 12-24-2024 10:53-0500 Diastolic blood pressure 78 mm[Hg] Herman Murray MD Work Phone: [facility] 12-24-2024 10:53-0500 Heart rate 78 /min Herman Murray MD Work Phone: [facility] 12-24-2024 10:53-0500 Systolic blood pressure 124 mm[Hg] Herman Murray MD Work Phone: [facility] 12-18-2024 11:44-0500 Body mass index (BMI) [Ratio] 32.9 kg/m2 Herman Murray MD Work Phone: [facility] 12-18-2024 11:44-0500 Body weight 80.29 kg Herman Murray MD Work Phone: [facility] 12-18-2024 11:44-0500 Diastolic blood pressure 92 mm[Hg] Herman Murray MD Work Phone: [facility] 12-18-2024 11:44-0500 Heart rate 79 /min Herman Murray MD Work Phone: [facility] 12-18-2024 11:44-0500 Respiratory rate 20 /min Herman Murray MD Work Phone: [facility] 12-18-2024 11:44-0500 SaO2% (BldA) [Mass fraction] 96 % Herman Murray MD Work Phone: [facility] 12-18-2024 11:44-0500 Systolic blood pressure 118 mm[Hg] Herman Murray MD Work Phone: [phone])[phone] [place] [address] 12-13-2024 23:10-0500 Body temperature 98.2 [degF] Dr. Herman Murray MD Work Phone: [facility] 12-13-2024 23:10-0500 Diastolic blood pressure 78 mm[Hg] Dr. Herman Murray MD Work Phone: 5(039)496-046210 [place] [address] 12-13-2024 23:10-0500 Heart rate 78 /min Dr. Herman Murray MD Work Phone: 8(315)417-583210 [place] [address] 12-13-2024 23:10-0500 Respiratory rate 16 /min Dr. Herman Murray MD Work Phone: [facility] 12-13-2024 23:10-0500 SaO2% (BldA) [Mass fraction] 98 % Dr. Herman Murray MD Work Phone: 5(054)347-378510 [place] [address] 12-13-2024 23:10-0500 Systolic blood pressure 138 mm[Hg] Dr. Herman Murray MD Work Phone: 9(299)[phone] [place] [address] 12-13-2024 20:18-0500 Body height 152.[address] Herman Murray MD Work Phone: 5(311)404-619610 [place] [address] 02-13-2024 08:51-0400 Diastolic blood pressure 84 mm[Hg] Herman Murray MD Work Phone: [facility] 02-13-2024 08:51-0400 Systolic blood pressure 118 mm[Hg] Herman Murray MD Work Phone: [facility] 02-13-2024 08:06-0400 Body height 156.2 cm Herman Murray MD Work Phone: [facility] 02-13-2024 08:06-0400 Body temperature 98.91 [degF] Herman Murray MD Work Phone: [facility] 02-13-2024 08:06-0400 Body weight 83.46 kg Herman Murray MD Work Phone: [facility] 02-13-2024 08:06-0400 Heart rate 97 /min Herman Murray MD Work Phone: [facility] 02-13-2024 08:06-0400 Respiratory rate 16 /min Herman Murray MD Work Phone: [facility] 02-13-2024 08:06-0400 SaO2% (BldA) [Mass fraction] 97 % Herman Murray MD Work Phone: [facility] 01-23-2024 09:31-0400 Body height 152.4 cm Ina Peterson MD Work Phone: [facility] 01-23-2024 09:31-0400 Body mass index (BMI) [Ratio] 35.15 kg/m2 Ina Peterson MD Work Phone: [facility] 01-23-2024 09:31-0400 Body weight 81.65 kg Ina Peterson MD Work Phone: [facility] 01-23-2024 09:31-0400 Diastolic blood pressure 74 mm[Hg] Ina Peterson MD Work Phone: [facility] 01-23-2024 09:31-0400 Systolic blood pressure 122 mm[Hg] Ina Peterson MD Work Phone: [facility] 12-23-2023 18:39-0500 Body weight 81.74 kg Gage Ann MD Work Phone: [facility] 02-12-2024 18:39-0500 Diastolic blood pressure 80 mm[Hg] Gage Ann MD Work Phone: [facility] 12-23-2023 18:39-0500 Heart rate 80 /min Gage Ann MD Work Phone: [facility] 12-23-2023 18:39-0500 Respiratory rate 16 /min Gage Ann MD Work Phone: [facility] 12-23-2023 18:39-0500 Systolic blood pressure 128 mm[Hg] Gage Ann MD Work Phone: [facility] 10-24-2023 08:29-0500 Body height 152.4 cm Ina Peterson MD Work Phone: [facility] 10-24-2023 08:29-0500 Body mass index (BMI) [Ratio] 35.15 kg/m2 Ina Peterson MD Work Phone: [facility] 10-24-2023 08:29-0500 Body weight 81.65 kg Ina Peterson MD Work Phone: [facility] 10-24-2023 08:29-0500 Diastolic blood pressure 80 mm[Hg] Ina Peterson MD Work Phone: [facility] 10-24-2023 08:29-0500 Systolic blood pressure 128 mm[Hg] Ina Peterson MD Work Phone: [facility] 08-08-2023 10:28-0400 Body height 152.4 cm Ina Peterson MD Work Phone: [facility] 08-08-2023 10:28-0400 Body mass index (BMI) [Ratio] 35.15 kg/m2 Ina Peterson MD Work Phone: [facility] 08-08-2023 10:28-0400 Body weight 81.65 kg Ina Peterson MD Work Phone: [facility] 08-08-2023 10:28-0400 Diastolic blood pressure 82 mm[Hg] Ina Peterson MD Work Phone: [facility] 08-08-2023 10:28-0400 Systolic blood pressure 124 mm[Hg] Ina Peterson MD Work Phone: [facility] 08-02-2023 10:13-0400 Body temperature 97.7 [degF] [facility] DENTAL 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.RETAIL PARTS PROFESSIONAL Work Phone: [facility] 08-02-2023 10:13-0400 Body weight 81.92 kg [facility] DENTAL 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.RETAIL PARTS PROFESSIONAL Work Phone: [facility] 08-02-2023 10:13-0400 Diastolic blood pressure 81 mm[Hg] [facility] DENTAL 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.RETAIL PARTS PROFESSIONAL Work Phone: [facility] 08-02-2023 10:13-0400 Heart rate 81 /min [facility] DENTAL 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.RETAIL PARTS PROFESSIONAL Work Phone: [facility] 08-02-2023 10:13-0400 Respiratory rate 20 /min [facility] DENTAL 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.RETAIL PARTS PROFESSIONAL Work Phone: [facility] 08-02-2023 10:13-0400 SaO2% (BldA) [Mass fraction] 99 % [facility] DENTAL 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.RETAIL PARTS PROFESSIONAL Work Phone: [facility] 08-02-2023 10:13-0400 Systolic blood pressure 135 mm[Hg] [facility] DENTAL 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.RETAIL PARTS PROFESSIONAL Work Phone: [facility] 05-15-2023 14:50-0400 Diastolic blood pressure 69 mm[Hg] [facility] 05-15-2023 14:50-0400 Heart rate 84 /min [facility] 05-15-2023 14:50-0400 Respiratory rate 16 /min [facility] 05-15-2023 14:50-0400 SaO2% (BldA) [Mass fraction] 98 % [facility] 05-15-2023 14:50-0400 Systolic blood pressure 113 mm[Hg] [facility] 05-15-2023 12:41-0400 Body height 157.48 cm [facility] 05-15-2023 12:41-0400 Body temperature 95.8 [degF] [facility] 02-06-2023 19:12-0400 Body weight 78.47 kg Herman Murray MD Work Phone: [facility] 02-06-2023 19:12-0400 Diastolic blood pressure 80 mm[Hg] Herman Murray MD Work Phone: [facility] 02-06-2023 19:12-0400 Heart rate 74 /min Herman Murray MD Work Phone: [facility] 02-06-2023 19:12-0400 Respiratory rate 16 /min Herman Murray MD Work Phone: [facility] 02-06-2023 19:12-0400 Systolic blood pressure 128 mm[Hg] Herman Murray MD Work Phone: [facility] 04-11-2022 11:10-0400 Body weight 79.2 kg Herman Murray MD Work Phone: [facility] 04-11-2022 11:10-0400 Diastolic blood pressure 84 mm[Hg] Herman Murray MD Work Phone: [facility] 04-11-2022 11:10-0400 Heart rate 68 /min Herman Murray MD Work Phone: [facility] 04-11-2022 11:10-0400 Respiratory rate 16 /min Herman Murray MD Work Phone: [facility] 04-11-2022 11:10-0400 Systolic blood pressure 116 mm[Hg] Herman Murray MD Work Phone: [facility] 04-02-2022 13:28-0400 Body weight 78.47 kg Herman Murray MD Work Phone: [facility] 04-02-2022 13:28-0400 Diastolic blood pressure 86 mm[Hg] Herman Murray MD Work Phone: [facility] 04-02-2022 13:28-0400 Heart rate 76 /min Herman Murray MD Work Phone: [facility] 04-02-2022 13:28-0400 Respiratory rate 16 /min Herman Murray MD Work Phone: [facility] 04-02-2022 13:28-0400 Systolic blood pressure 118 mm[Hg] Herman Murray MD Work Phone: [facility] 02-26-2022 09:40-0400 Body temperature 97.81 [degF] Danielle Orr MD Work Phone: [facility] 02-26-2022 09:40-0400 Body weight 79.11 kg Danielle Orr MD Work Phone: [facility] 02-26-2022 09:40-0400 Diastolic blood pressure 68 mm[Hg] Danielle Orr MD Work Phone: [facility] 02-26-2022 09:40-0400 Heart rate 88 /min Danielle Orr MD Work Phone: [facility] 02-26-2022 09:40-0400 SaO2% (BldA) [Mass fraction] 100 % Danielle Orr MD Work Phone: [facility] 02-26-2022 09:40-0400 Systolic blood pressure 118 mm[Hg] Danielle Orr MD Work Phone: [facility] 02-12-2022 15:17-0400 Body height 154.9 cm Danielle Orr MD Work Phone: [facility] 02-12-2022 15:17-0400 Body temperature 97.59 [degF] Danielle Orr MD Work Phone: [facility] 02-12-2022 15:17-0400 Body weight 79.11 kg Danielle Orr MD Work Phone: [facility] 02-12-2022 15:17-0400 Diastolic blood pressure 76 mm[Hg] Danielle Orr MD Work Phone: [facility] 02-12-2022 15:17-0400 Heart rate 90 /min Danielle Orr MD Work Phone: [facility] 02-12-2022 15:17-0400 SaO2% (BldA) [Mass fraction] 100 % Danielle Orr MD Work Phone: [facility] 02-12-2022 15:17-0400 Systolic blood pressure 128 mm[Hg] Danielle Orr MD Work Phone: [facility] 03-11-2017 16:02-0400 BMI (Body Mass Index) 32.42 kg/m2 [facility] Work Phone: 03-11-2017 16:02-0400 BP Diastolic 64 mm[Hg] [facility] [facility] Work Phone: 03-11-2017 16:02-0400 BP Systolic 130 mm[Hg] [facility] Work Phone: 03-11-2017 16:02-0400 Height 152.4 cm [facility] Work Phone: 03-11-2017 16:02-0400 Pulse (Heart Rate) 84 /min [facility] Work Phone: 03-11-2017 16:02-0400 Respiratory Rate 16 /min [facility] Work Phone: 03-11-2017 16:02-0400 Weight 75.3 kg [facility] Work Phone: Encounters Encounter Date Encounter Type Care Provider Facility Start: 05-17-2025 End: 05-17-[address] Herman Murray MD Work Phone: -[facility]atory [facility] Start: 05-17-2025 End: 05-17-[address] Мария Perdomo MD -Laboratory [facility] Work Phone: Start: 05-17-2025 End: 05-17-2025 [facility] Start: 03-30-2025 End: 03-30-[address] Мария Perdomo MD -Laboratory [facility] Work Phone: Start: 03-30-2025 End: 03-30-2025 [facility] Start: 03-17-2025 End: 03-17-2025 Patient encounter procedure Vale Blair DENTAL 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.RETAIL [employer]S PROFESSIONAL Work Phone: General Surgery Comment on above: Adenomatous polyp of transverse colon (Primary Dx) Start: 03-17-2025 End: 03-17-2025 ambulatory VALE MACIAS Facility:[facility] Start: 03-12-2025 End: 03-12-2025 Telephone encounter Herman Murray MD Work Phone: [facility] [place] Comment on above: Results Start: 03-12-2025 End: 03-12-[address] Herman Murray MD Work Phone: [facility] Work Phone: Start: 03-12-2025 End: 03-12-[address] Herman Murray MD -Ultrasound, [facility] Work Phone: Start: 03-12-2025 End: 03-12-2025 ambulatory Herman Murray Facility:[facility] Start: 03-09-2025 End: 05-09-2025 Follow-up encounter Vale Macias APRN.[employer]TAIL [employer] PROFESSIONAL Work Phone: General Surgery Start: 03-09-2025 ambulatory DANIELLE Moyai ty:[facility] Start: 03-09-2025 End: 03-09-2025 Subsequent hospital visit by physician Danielle Orr MD Work Phone: Ambulatory Surgery Comment on above: Screening for colon cancer [Z12.11] Start: 03-03-2025 End: 05-03-2025 Follow-up encounter Deneen Bush MD Work Phone: OB/Gynecology Start: 02-25-2025 End: 02-25-2025 Patient encounter procedure Ronni Diaz MD Work Phone: OB/Gynecology Comment on above: Encounter for gyneco logical examination (general) (routine) without abnormal findings (Primary Dx); Encounter for screening for human papillomavirus (HPV); Pap smear for cervical cancer screening; Encounter for screening mammogram for breast cancer; Postmenopausal atrophic vaginitis Start: 02-25-2025 End: 02-25-2025 Patient encounter status Ronni Diaz MD Work Phone: [facility] Start: 02-25-2025 Encounter for genera l adult medical examination without abnormal findings Herman Murray [facility] Start: 02-25-2025 End: 02-25-2025 ambulatory RONNI DIAZ Facility:[facility] Start: 02-25-2025 Encounter for gynecological examination (general) (routine) without abnormal findings RONNI DIAZ [facility] Start: 02-23-2025 End: 03-01-2025 Telephone encounter Analilia Diaz MA [facility] Comment on above: Results ([facility] ) Start: 02-22-2025 End: 02-22-2025 Admission to same day surgery center Vale Macias APRN.[employer]TAIL [employer] PROFESSIONAL Work Phone: General Surgery Comment on above: Emiliaeverton Hensley Start: 02-22-2025 End: 02-22-2025 Follow-up encounter Herman Murray MD Work Phone: [facility] Comment on above: Results Start: 02-22-2025 End: 02-22-2025 ambulatory Vale Macias APRN.[employer]TA[employer] PROFESSIONAL Work Phone: General Surgery Start: 02-22-2025 End: 02-22-2025 Patient encounter procedure Vale Macias APRN.[employer]TAIL [employer] PROFESSIONAL Work Phone: General Surgery Comment on above: Screening for colon cancer Start: 02-22-2025 End: 02-22-2025 ambulatory Herman Murray Facility:[facility] Start: 02-20-2025 End: 02-22-2025 Follow-up encounter Herman Murray MD Work Phone: [facility] Comment on above: Results Start: 02-19-2025 End: 02-19-2025 ambulatory HERMAN MURRAY Facility:[facility] Start: 02-19-2025 End: 02-19-2025 Subsequent hospital visit by physician Screen Mammo [facility] Comment on above: Encounter for screen ing mammogram for breast cancer [Z12.31] Start: 02-18-2025 End: 02-18-2025 ambulatory HERMAN MURRAY Facility:[facility] Start: 02-18-2025 End: 02-18-2025 Subsequent hospital visit by physician [facility] Work Phone: Radiology Comment on above: Multiple thyroid nod ules [E04.2] Start: 02-17-2025 End: 02-17-2025 ambulatory HERMAN MURRAY Facility:[facility] Start: 02-17-2025 End: 02-17-2025 Patient encounter procedure Herman Murray MD Work Phone: [facility] [place] Comment on above: Well adult exam ([place] eb Dx); GERD without esophagitis; Multiple thyroid nodules; Rheumatoid arthritis involving multiple sites with positive rheumatoid factor (HCC); Obesity, Class I, BMI 30-34.9; Trigeminal neuralgia; Fatty liver; Complex regional pain syndrome type 1 of right upper extremity; Encounter for lipid screening for cardiovascular disease; Screening for depression; Encounter for screening examination for other mental health and behavioral disorders; Screening for colon cancer; Medication management; Encounter for screening for diabetes mellitus; Encounter for screening mammogram for breast cancer Start: 02-17-2025 End: 02-17-2025 Patient encounter status Herman Murray MD Work Phone: [facility] Start: 02-16-2025 End: 03-19-2025 ambulatory Herman Murray MD Work Phone: Family [facility] [place] Start: 12-24-2024 End: 12-24-2024 Patient encounter procedure Herman Murray MD Work Phone: Family [facility] Comment on above: Sinobronchitis (Prim flaquita Dx); Persistent cough Start: 12-24-2024 End: 12-24-2024 ambulatory HERMAN MURRAY Facility:[facility] Start: 12-18-2024 End: 12-18-2024 Telephone encounter Yen Martinez APRN.CNP Work Phone: Family [facility] Comment on above: Results Start: 12-18-2024 End: 12-18-2024 ambulatory HERMAN MURRAY Facility:[facility] Start: 12-18-2024 End: 12-18-2024 Subsequent hospital visit by physician Xr [facility] Work Phone: Radiology Comment on above: Persistent cough [R0 5.3] Start: 12-18-2024 End: 12-18-2024 Patient encounter procedure Herman Murray MD Work Phone: Family [facility] Comment on above: Persistent cough (Pr imary Dx); Sinobronchitis Start: 12-18-2024 End: 12-18-2024 ambulatory HERMAN MURRAY Facility:[facility] Start: 12-14-2024 End: 12-14-2024 Chart abstracting Analilia Diaz MA [facility] Comment on above: ER F/U ([facility] ) Start: 12-13-2024 End: 12-13-2024 Emergency department patient visit Dr. Jo Abarca DO -Emergency Department Work Phone: Start: 12-05-2024 End: 12-05-2024 ambulatory HERMAN MURRAY Facility:[facility] Start: 12-01-2024 End: 12-01-2024 Chart abstracting Herman Murray MD Work Phone: [facility] Comment on above: Outside Yjgv-Ufi-HOP Ordered Start: 12-01-2024 End: 12-01-[address] Мария Perdomo MD -Laboratory, [place] Work Phone: Start: 12-01-2024 End: 12-01-[address] [facility] Facility:[facility] Start: 10-30-2024 End: 10-30-2024 Chart abstracting Analilia Diaz MA [facility] Comment on above: Results (Outside lab s /) Start: 10-29-2024 End: 10-29-[address] Мария Perdomo MD -Laboratory, [place] Work Phone: Start: 10-29-2024 End: 10-29-2024 [facility] Start: 08-04-2024 End: 08-04-2024 Chart abstracting Herman Murray MD Work Phone: [facility] Comment on above: Outside Neyq-Zxg-LRI Ordered Start: 08-04-2024 End: 08-04-[address] [facility] Facility:[facility] Start: 05-22-2024 Chart abstracting Herman burnette MD Work Phone: [facility] Comment on above: Outside Oxrr-Inj-NIL Ordered Start: 05-12-2024 Chart abstracting Herman burnette MD Work Phone: [facility] Comment on above: Outside Qcxc-Fps-XMK Ordered Start: 03-18-2024 End: 03-18-2024 Nursing evaluation of patient and report Mi Nurse Work Phone: [facility] Comment on above: Need for vaccination (Primary Dx) Start: 03-17-2024 Telephone encounter Herman Murray MD Work Phone: [facility] Comment on above: Orders Start: 03-10-2024 Chart abstracting Herman burnette MD Work Phone: [facility] Comment on above: Ext / Labs Start: 03-10-2024 End: 03-10-2024 ambulatory [facility] Work Phone: Start: 03-10-2024 End: 03-10-2024 Patient encounter procedure [facility] Work Phone: Start: 03-04-2024 Telephone encounter Herman Murray MD Work Phone: [facility] Comment on above: Results Start: 02-27-2024 Chart abstracting Herman burnette MD Work Phone: [facility] Comment on above: Ext / Arthritis Clin ic consult Start: 02-21-2024 Chart abstracting Analilia [facility] Comment on above: Results, Lab Start: 02-19-2024 End: 02-19-2024 ambulatory [facility] Work Phone: Start: 02-19-2024 End: 02-19-2024 Patient encounter procedure [facility] Work Phone: Start: 02-13-2024 End: 02-13-2024 Patient encounter procedure Herman Murray MD Work Phone: [facility] [place] Comment on above: Well adult exam ([facility] eb Dx); GERD without esophagitis; Multiple thyroid nodules; Rheumatoid arthritis involving multiple sites with positive rheumatoid factor (HCC); Complex regional pain syndrome type 1 of right upper extremity; Obesity, Class I, BMI 30-34.9; Fatty liver; Closed fracture of distal end of right radius with malunion, unspecified fracture morphology, subsequent encounter; Carpal tunnel syndrome, right; Encounter for screening for diabetes mellitus; Encounter for lipid screening for cardiovascular disease; Medication management Start: 02-13-2024 End: 02-13-2024 Patient encounter status Herman Murray MD Work Phone: [facility] Work Phone: Start: 01-27-2024 Telephone encounter Ina torrez MD Work Phone: [facility] Clinical Communication Comment on above: Other (Facility for [facility]) Start: 01-23-2024 End: 01-23-2024 ambulatory [facility] Start: 01-23-2024 End: 01-23-2024 Office outpatient visit 15 minutes Ina Peterson MD Work Phone: 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 Start: 10-24-2023 End: 10-24-2023 Office outpatient visit 15 minutes Ina Peterson MD Work Phone: 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 (Primary Dx); Traumatic closed displaced fracture of distal end of right radius with malunion; Adhesive capsulitis of right shoulder; Carpal tunnel syndrome of right wrist Start: 10-24-2023 End: 10-24-2023 Subsequent hospital visit by physician Antonino Bautista PA-C Work Phone: [facility] Comment on above: Right wrist pain Start: 09-12-2023 End: 09-12-2023 ambulatory [facility] Work Phone: Start: 09-12-2023 End: 09-12-2023 Discharged Recurring [facility]-Occupational Therapy Work Phone: Start: 09-12-2023 Registered Recurring [facility]-Occupational [facility] Work Phone: Start: 09-10-2023 Orders Only Antonino schaffer PA-C Work Phone: [facility] Orthopedics and Sports Medicine Comment on above: Right wrist pain (Pr imary Dx) Start: 09-05-2023 Registered Recurring [facility]-Occupational [facility] Work Phone: Start: 09-04-2023 Chart abstracting Herman burnette MD Work Phone: [facility] [place] Comment on above: Outside Jidn-Mhi-OVX Ordered Start: 09-03-2023 End: 09-03-2023 ambulatory [facility] Work Phone: Start: 09-03-2023 End: 09-03-2023 Patient encounter procedure [facility]-Laboratory, [place] Work Phone: Start: 08-26-2023 Telephone encounter Deneen Devries MD Work Phone: Neurology Comment on above: Fax EMG Results Start: 08-26-2023 End: 08-26-2023 ambulatory Emg 850) Neurology Start: 08-26-2023 End: 08-26-2023 Patient encounter procedure Emg 1 Neur Safia (Max Weight: 850) SAFIA Start: 08-08-2023 End: 08-08-2023 ambulatory INA PETERSON [facility] Start: 08-08-2023 End: 08-08-2023 Office outpatient new 30 minutes Ina Peterson MD Work Phone: 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 (Primary Dx); Traumatic closed displaced fracture of distal end of right radius with malunion; Adhesive capsulitis of right shoulder Start: 08-02-2023 End: 08-02-2023 Subsequent hospital visit by physician [facility] Work Phone: Radiology Comment on above: Acute right ankle pa in [M25.571] Start: 08-02-2023 End: 08-02-2023 Office outpatient visit 15 minutes Herman Rubio APRN.CNP Work Phone: [facility] Comment on above: Acute right ankle pa in (Primary Dx); Foot pain, right Start: 07-29-2023 Telephone encounter Herman Murray MD Work Phone: [facility] Comment on above: Patient Question Start: 07-12-2023 End: 07-12-2023 ambulatory [facility] Work Phone: Start: 07-12-2023 End: 07-12-2023 Patient encounter procedure [facility]-Laboratory, [place] Work Phone: Start: 07-11-2023 Registered Recurring [facility]-Occupational Therapy Work Phone: Start: 05-15-2023 End: 05-15-2023 Emergency department patient visit [facility]-Emergency Department Work Phone: Start: 05-09-2023 End: 05-09-2023 ambulatory [facility] Work Phone: Start: 05-09-2023 End: 05-09-2023 Patient encounter procedure [facility] Work Phone: Start: 02-27-2023 Documentation procedure Mammog lea Coordinator [facility] Start: 02-27-2023 Letter encounter Mammography Coordinator [facility] Department Start: 02-27-2023 Telephone encounter Eri nevarez PA-C Work Phone: [facility] Comment on above: Results Start: 02-26-2023 End: 02-26-2023 Subsequent hospital visit by physician Screen Mammo [facility] Comment on above: Encounter for screen ing mammogram for breast cancer [Z12.31] Start: 02-18-2023 End: 02-18-2023 ambulatory [facility] Work Phone: Start: 02-18-2023 End: 02-18-2023 Patient encounter procedure [facility] Start: 02-12-2023 Telephone encounter Herman Murray MD Work Phone: [facility] Comment on above: Results Start: 02-06-2023 End: 02-06-2023 Patient encounter procedure Herman Murray MD Work Phone: [facility] Comment on above: Well adult exam ([place] eb Dx); Multiple thyroid nodules; GERD without esophagitis; Rheumatoid arthritis involving multiple sites with positive rheumatoid factor (HCC); Trigeminal neuralgia; Fatty liver; Obesity, Class I, BMI 30-34.9; Encounter for screening for diabetes mellitus; Encounter for lipid screening for cardiovascular disease; Medication management; Encounter for screening mammogram for breast cancer Start: 02-06-2023 End: 02-06-2023 Patient encounter status Herman Murray MD Work Phone: [facility] Start: 01-23-2023 Telephone encounter Eri nevarez PA-C Work Phone: [facility] Comment on above: Results Start: 01-07-2023 Chart abstracting Herman burnette MD Work Phone: [facility] Comment on above: Us Procedure (Result s /) Start: 12-26-2022 End: 12-26-2022 Patient encounter procedure [facility] Start: 12-10-2022 End: 12-10-2022 ambulatory [facility] Work Phone: Start: 12-10-2022 End: 12-10-2022 Patient encounter procedure [facility] Start: 11-26-2022 End: 11-26-2022 ambulatory [facility] Work Phone: Start: 11-26-2022 End: 11-26-2022 Patient encounter procedure [facility] Start: 08-27-2022 End: 08-27-2022 ambulatory [facility] Work Phone: Start: 08-27-2022 End: 08-27-2022 Patient encounter procedure [facility] Start: 05-28-2022 End: 05-28-2022 Patient encounter procedure [facility] Start: 04-11-2022 ambulatory Herman mims MD Work Phone: [facility] Start: 04-11-2022 Follow-up encounter Herman Murray MD Work Phone: [facility] Comment on above: Follow up visit from Dr. Perdomo Start: 04-11-2022 End: 04-11-2022 Patient encounter procedure Herman Murray MD Work Phone: [facility] Comment on above: Rash (Primary Dx) Start: 04-04-2022 End: 04-04-2022 Patient encounter procedure [facility] Start: 04-02-2022 End: 04-02-2022 Patient encounter procedure Herman Murray MD Work Phone: [facility] Comment on above: Folliculitis (Primar y Dx) Start: 03-05-2022 End: 03-05-2022 Patient encounter procedure [facility] Start: 02-26-2022 End: 02-26-2022 Patient encounter procedure Danielle Orr MD Work Phone: General Surgery Comment on above: Status post laparosc opic cholecystectomy (Primary Dx) Start: 02-19-2022 Telephone encounter Danielle Geiger MD Work Phone: General Surgery Comment on above: FMLA Paperwork Start: 02-12-2022 End: 02-12-2022 Patient encounter procedure Danielle Orr MD Work Phone: General Surgery Comment on above: Epigastric pain ([place] eb Dx); Gall stones Start: 02-12-2022 Telephone encounter Danielle Geiger MD Work Phone: General Surgery Comment on above: 02-15-2022 Lap Dinorah Metcalf Start: 02-09-2022 Telephone encounter Eri nevarez PA-C Work Phone: [facility] Comment on above: Results Start: 02-08-2022 End: 02-08-2022 Subsequent hospital visit by physician [facility] Work Phone: Radiology Comment on above: Epigastric pain [R10 .13] Start: 02-05-2022 Patient encounter status [facility] Work Phone: [facility] Work Phone: Start: 12-12-2021 End: 12-12-2021 Patient encounter procedure [facility]-Laboratory, Specimen Start: 10-24-2021 End: 10-24-2021 Subsequent hospital visit by physician [facility] Work Phone: Radiology Comment on above: Foot pain, left [M79 .672] Start: 09-22-2015 End: 11-28-2015 Patient encounter status Herman Murray MD Work Phone: [facility] Start: 04-26-2008 End: 11-28-2015 Patient encounter status Herman Murray MD Work Phone: [facility] Work Phone: Procedures Date Procedure Procedure Detail Performing Clinician Start: 03-12-2025 Ultrasound elastogra phy of liver Dr. Herman Murray MD Work Phone: Start: 03-09-2025 Colonoscopy flx dx w/collj spec when pfrmd Vale Macias DENTAL 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.[employer]TA[employer] PROFESSIONAL Work Phone: Start: 03-09-2025 Colonoscopy Danielle Orr MD Work Phone: Start: 02-22-2025 CBC W/DIFF/PLT ([facility]) [facility] Provider Start: 02-22-2025 Comprehensive metabo lic 2000 panel - Serum or Plasma [facility] Provider Start: 02-22-2025 Hemoglobin A1c/Hemoglobin.total in Blood [facility] Provider Start: 02-22-2025 Lipid panel [facility] Provid er Start: 02-22-2025 MAGNESIUM BLD [facility] Provi linda Start: 02-22-2025 Thyrotropin [Units/volume] in Serum or Plasma [facility] Provider Start: 02-22-2025 VITAMIN B12 BLOOD [facility] P rovider Start: 02-22-2025 Lipid 1996 panel - S angy or Plasma Analilia Diaz MA Start: 02-17-2025 Adult depression screening assessment Herman Murray MD Work Phone: Start: 12-18-2024 Radiologic exam ches t 2 views Herman Murray MD Work Phone: Start: 12-13-2024 X-ray of chest, PA a nd lateral views Dr. Herman Murray MD Work Phone: Start: 12-01-2024 Measurement of renal function Dr. Herman Murray MD Work Phone: Comment on above: GFR Calc Start: 02-19-2024 CBC W/DIFF/PLT ([facility]) [facility] Provider Start: 02-19-2024 Comprehensive metabo lic 2000 panel - Serum or Plasma [facility] Provider Start: 02-19-2024 Hemoglobin A1c/Hemoglobin.total in Blood [facility] Provider Start: 02-19-2024 Lipid panel [facility] Provid er Start: 02-19-2024 MAGNESIUM BLD [facility] Provi linda Start: 02-19-2024 VITAMIN B12 BLOOD [facility] P rovider Start: 02-19-2024 Lipid 1996 panel - S angy or Plasma Herman Murray MD Work Phone: Start: 08-26-2023 Nerve conduction neris dies 5-6 studies Deneen Devries MD Work Phone: Start: 08-02-2023 Radex ankle complete minimum 3 views Herman Rubio DENTAL 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.[employer] PROFESSIONAL Work Phone: Start: 05-15-2023 X-ray of chest posteroanterior view Start: 05-15-2023 Plain x-ray of wrist Start: 02-26-2023 End: 02-26-2023 Mammography Herman Murray MD Work Phone: Start: 02-08-2023 Lipid 1996 panel - S angy or Plasma Herman Murray MD Work Phone: Start: 12-10-2022 Ultrasonography of abdomen Start: 02-08-2022 Us abdominal real ti me w/image limited Eri Loza PA-C Work Phone: Start: 01-12-2022 Mammography Us 1 Work Phone: Start: 10-24-2021 Radex foot complete minimum 3 views Colby Vicente DENTAL 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.[employer] PROFESSIONAL Work Phone: Start: 03-11-2017 Lipid 1996 panel - S angy or Plasma Ina Peterson MD Work Phone: Start: 03-11-2017 End: 03-12-2017 *BMP Shon Grossman MD Start: 03-11-2017 End: 03-12-2017 *Hepatic Function Panel Shon Grossman MD Start: 03-11-2017 End: 03-12-2017 aPTT Shon Grossman MD Start: 03-11-2017 End: 03-12-2017 CBC W Auto Differential panel - Blood Shon Grossman MD Start: 03-11-2017 End: 03-13-2017 Chest x-ray Shon Grossman MD Start: 03-11-2017 End: 03-12-2017 Coagulation factor induced.INR assay in platelet poor plasma Shon Grossman MD Start: 03-11-2017 End: 03-12-2017 Echocardiography Shon Grossman MD Start: 03-11-2017 End: 03-11-2017 Electrocardiogram, complete Shon Grossman MD Start: 03-11-2017 End: 03-11-2017 Follow Up Appt 6 weeks Shon Grossman MD Start: 03-11-2017 End: 03-12-2017 Lipid panel [AGGREGATE] Shon Grossman MD Start: 03-11-2017 End: 03-11-2017 MMM Shon Grossman MD Start: 09-03-2013 Colonoscopy Us 1 Work Phone: History of cholecystectomy Status post laparoscopic cholecystectomy Danielle Orr MD Work Phone: Plan of Treatment Date Care Activity Detail Author Start: 03-09-2035 Screening for malign ant neoplasm of colon [facility] Start: 03-09-2030 Screening for malign ant neoplasm of colon [facility] Start: 02-22-2030 Lipid panel Lipid Screening [facility] Start: 02-18-2029 Lipid panel Lipid Screening [facility] Start: 02-23-2028 Diabetes Screening Diabetes Screenin g [facility] Start: 02-09-2028 Lipid 1996 panel - S angy or Plasma Lipid Screening [facility] Start: 02-09-2028 Lipid panel Lipid Screening [facility] [facility] Start: 02-09-2028 LIPID SCREEN LIPID SCREEN [facility] Start: 2027 RSV Immunization age d 60 or older (1 - 1-dose 60+ series) RSV Immunization aged 60 or older (1 - 1-dose 60+ series) [facility] Start: 11-14-2027 DTaP/Tdap/Td Vaccine s (3 - Td or Tdap) DTaP/Tdap/Td Vaccines (3 - Td or Tdap) [facility] Start: 11-14-2027 Urine microalbumin profile [facility] Start: 02-18-2027 Diabetes Screening Diabetes Screenin g [facility] Start: 01-04-2027 LIPID SCREEN LIPID SCREEN [facility] Start: 03-03-2026 End: 03-03-2026 Patient encounter procedure 03/03/2026 9:40 AM EDT Office Visit OB/Gynecology [address] [place] [address] Ronni Diaz MD [address] [place] [address] Annual OB/Gynecology Comment on above: Annual Start: 02-25-2026 Screening for malign ant neoplasm of cervix Cervical Cancer Screening [facility] Start: 02-21-2026 End: 02-21-2026 Patient encounter procedure 02/21/2026 9:10 AM EDT Appointment Mammogram [address] [place] [address] Encounter for screening mammogram for breast cancer [Z12.31 Mammogram Comment on above: Encounter for screen ing mammogram for breast cancer [Z12.31 Start: 02-19-2026 Screening for malign ant neoplasm of breast Mammogram Screening [facility] Start: 02-17-2026 Anxiety Screening Anxiety Screening [facility] Start: 02-17-2026 Depression Screening Depression Scre ening [facility] Start: 02-17-2026 End: 02-17-2026 Patient encounter procedure 02/17/2026 9:20 AM EDT Office Visit Family [facility] [address] [place] [address] Herman Murray MD [address] [place] [address] Physical Family Medicine [facility] Comment on above: Physical Start: 02-08-2026 Diabetes mellitus screening Diabetes Screening [facility] Start: 02-08-2026 DIABETES SCREEN DIABETES SCREEN [facility] Start: 02-08-2026 Diabetes Screening Diabetes Screenin g [facility] Start: 02-04-2026 End: 05-06-2026 CBC W Auto Differential panel - Blood COMPLETE BLOOD COUNT AND DIFFERENTIAL Lab Routine Fatty liver Expected: 02/04/2026, Expires: 05/06/2026 [facility] Comment on above: Expected: 02/04/2026 , Expires: 05/06/2026 Start: 02-04-2026 End: 05-06-2026 Cobalamin (Vitamin B12) [Mass/volume] in Serum or Plasma VITAMIN B12 Lab Routine GERD without esophagitis Medication management Expected: 02/04/2026, Expires: 05/06/2026 [facility] Comment on above: Expected: 02/04/2026 , Expires: 05/06/2026 Start: 02-04-2026 End: 05-06-2026 Comprehensive metabolic 2000 panel - Serum or Plasma COMPREHENSIVE METABOLIC PANEL Lab Routine Fatty liver Expected: 02/04/2026, Expires: 05/06/2026 [facility] Comment on above: Expected: 02/04/2026 , Expires: 05/06/2026 Start: 02-04-2026 End: 05-06-2026 Hemoglobin A1c in Blood HEMOGLOBIN A1C Lab Routine Well adult exam Encounter for screening for diabetes mellitus Expected: 02/04/2026, Expires: 05/06/2026 [facility] Comment on above: Expected: 02/04/2026 , Expires: 05/06/2026 Start: 02-04-2026 End: 05-06-2026 LIPID PANEL, NONFASTING LIPID PANEL, NONFASTING Lab Routine Well adult exam Encounter for lipid screening for cardiovascular disease Expected: 02/04/2026, Expires: 05/06/2026 [facility] Comment on above: Expected: 02/04/2026 , Expires: 05/06/2026 Start: 02-04-2026 End: 05-06-2026 Magnesium [Mass/volume] in Serum or Plasma MAGNESIUM Lab Routine GERD without esophagitis Medication management Expected: 02/04/2026, Expires: 05/06/2026 [facility] Comment on above: Expected: 02/04/2026 , Expires: 05/06/2026 Start: 02-04-2026 End: 05-06-2026 Thyrotropin [Units/volume] in Serum or Plasma THYROID STIMULATING HORMONE Lab Routine Multiple thyroid nodules Expected: 02/04/2026, Expires: 05/06/2026 [facility] Comment on above: Expected: 02/04/2026 , Expires: 05/06/2026 Start: 07-26-2025 HPV TESTING HPV TESTING [facility] Start: 07-26-2025 PAP TESTING PAP TESTING [facility] Start: 07-26-2025 Screening for malign ant neoplasm of cervix [facility] Start: 07-12-2025 Influenza vaccination Influenz a Vaccine (Season Ended) [facility] Start: 05-10-2025 Influenza vaccination Influenza Vacc ine (#1) [facility] Comment on above: Postponed from 07/12 (Not Currently Available) Start: 03-17-2025 End: 03-17-2025 Patient encounter procedure General Surgery Comment on above: 03-09 colonoscopy fo llow up /declined Virtual 03-09 colonoscopy fo llow up /declined Virtual. Path in [facility] Start: 03-09-2025 End: 03-09-2025 Patient encounter procedure 03/09/2025 8:15 AM EDT Appointment Ambulatory Surgery [address] [place], [place] [phone] Danielle Orr MD [address] [place] [id number] Screening for colon cancer [Z12.11] Ambulatory Surgery Comment on above: Screening for colon cancer [Z12.11] Start: 02-25-2025 End: 02-25-2025 Patient encounter procedure 02/25/2025 8:30 AM EDT Office Visit OB/Gynecology [address] [place], [place] [phone] Ronni Diaz MD [address] [place] [address] Annual OB/Gynecology Comment on above: Annual Start: 02-22-2025 End: 02-22-2025 Patient encounter procedure General Surgery Comment on above: Screening for colon cancer [Z12.11] Screening for colon cancer. Colonscopy: 09/03/13, path, mammo: 02/26/2023. [facility] Start: 02-19-2025 End: 02-19-2025 Patient encounter procedure 02/19/2025 9:30 AM EDT Appointment Mammogram [address] [place] [address] Encounter for screening mammogram for breast cancer [Z12.31] Mammogram Comment on above: Encounter for screen ing mammogram for breast cancer [Z12.31] Start: 02-18-2025 End: 02-18-2025 Patient encounter procedure 02/18/2025 8:30 AM EDT Appointment Radiology [address] [place] [address] Multiple thyroid nodules [E04.2] Radiology Comment on above: Multiple thyroid nod ules [E04.2] Start: 02-17-2025 End: 05-19-2025 CBC W Auto Differential panel - Blood COMPLETE BLOOD COUNT AND DIFFERENTIAL Lab Routine Fatty liver Expected: 02/17/2025, Expires: 05/19/2025 [facility] Comment on above: Expected: 02/17/2025 , Expires: 05/19/2025 Start: 02-17-2025 End: 05-19-2025 Cobalamin (Vitamin B12) [Mass/volume] in Serum or Plasma VITAMIN B12 Lab Routine GERD without esophagitis Medication management Expected: 02/17/2025, Expires: 05/19/2025 [facility] Comment on above: Expected: 02/17/2025 , Expires: 05/19/2025 Start: 02-17-2025 End: 05-19-2025 Comprehensive metabolic 2000 panel - Serum or Plasma COMPREHENSIVE METABOLIC PANEL Lab Routine Fatty liver Expected: 02/17/2025, Expires: 05/19/2025 [facility] Comment on above: Expected: 02/17/2025 , Expires: 05/19/2025 Start: 02-17-2025 End: 05-19-2025 Hemoglobin A1c in Blood HEMOGLOBIN A1C Lab Routine Well adult exam Encounter for screening for diabetes mellitus Expected: 02/17/2025, Expires: 05/19/2025 [facility] Comment on above: Expected: 02/17/2025 , Expires: 05/19/2025 Start: 02-17-2025 End: 05-19-2025 LIPID PANEL, NONFASTING LIPID PANEL, NONFASTING Lab Routine Well adult exam Encounter for lipid screening for cardiovascular disease Expected: 02/17/2025, Expires: 05/19/2025 [facility] Comment on above: Expected: 02/17/2025 , Expires: 05/19/2025 Start: 02-17-2025 End: 05-19-2025 Magnesium [Mass/volume] in Serum or Plasma MAGNESIUM Lab Routine GERD without esophagitis Medication management Expected: 02/17/2025, Expires: 05/19/2025 [facility] Comment on above: Expected: 02/17/2025 , Expires: 05/19/2025 Start: 02-17-2025 End: 05-19-2025 Thyrotropin [Units/volume] in Serum or Plasma THYROID STIMULATING HORMONE Lab Routine Multiple thyroid nodules Expected: 02/17/2025, Expires: 05/19/2025 [facility] Comment on above: Expected: 02/17/2025 , Expires: 05/19/2025 Start: 02-17-2025 End: 02-17-2025 Patient encounter procedure 02/17/2025 9:00 AM EDT Office Visit [facility] [address] [place], [place] [phone] Herman Murray MD [address] [place], [place] [id number] physical r/s from 02/12 [facility] Comment on above: physical r/s from 02/12 Start: 02-12-2025 Covid-19 Vaccine (3 - Pfizer risk series) Covid-19 Vaccine (3 - Pfizer risk series) [facility] Comment on above: Postponed from 08/22 (Declined at this time) Start: 02-12-2025 Screening for malign ant neoplasm of breast Mammogram Screening [facility] Comment on above: Postponed from 02/26 (Insurance Coverage) Start: 02-12-2025 Shingrix Vaccine (1 of 2) Quijano grix Vaccine (1 of 2) [facility] Comment on above: Postponed from 12/29 (Insurance Coverage) Start: 02-12-2025 End: 02-12-2025 Patient encounter procedure 02/12/2025 8:00 AM EDT Office Visit [facility] [address] [place], [place] [phone] Herman Murray MD [address] [place] [address] Physical Family [facility] Comment on above: Physical Start: 02-05-2025 DIABETES SCREEN DIABETES SCREEN [facility] Start: 12-24-2024 End: 12-24-2024 Patient encounter procedure 12/24/2024 11:00 AM EST Office Visit [facility] [address] [place] [address] Herman Murray MD [address] [place] [address] follow up on cough [facility] [place] Comment on above: follow up on cough Start: 12-13-2024 [facility] Start: 11-10-2024 Behavioral Health Screening Behavioral Health Screening [facility] Comment on above: Postponed from 11/11 (Declined at this time) Start: 07-12-2024 Influenza vaccination [facility] Start: 05-16-2024 Hzv zoster vacc recombinant adjuvanted im njx ZOSTER VACCINE, RECOMBINANT (SHINGRIX) Immunization/Injection Routine Need for vaccination Expected: 05/16/2024 (Approximate) [facility] Comment on above: Expected: 05/16/2024 (Approximate) Start: 05-13-2024 Shingrix Vaccine (2 of 2) Quijano grix Vaccine (2 of 2) [facility] Start: 03-18-2024 End: 03-18-2024 Nursing evaluation of patient and report 03/18/2024 9:15 AM EDT Nurse Visit [facility] [address] [place] [address] Nurse, Mt [address] [place], [place] [phone] shingles vaccine [facility] [place] Comment on above: shingles vaccine Start: 02-27-2024 Mammography [facility] Start: 02-27-2024 Screening for malign ant neoplasm of breast Mammogram Screening [facility] Start: 02-13-2024 End: 05-14-2024 CBC W Auto Differential panel - Blood CBC + DIFF Lab Routine Medication management Expected: 02/13/2024, Expires: 05/14/2024 [facility] Work Phone: Comment on above: Expected: 02/13/2024 , Expires: 05/14/2024 Start: 02-13-2024 End: 05-14-2024 Cobalamin (Vitamin B12) [Mass/volume] in Serum or Plasma VITAMIN B12 BLOOD Lab Routine GERD without esophagitis Medication management Expected: 02/13/2024, Expires: 05/14/2024 [facility] Work Phone: Comment on above: Expected: 02/13/2024 , Expires: 05/14/2024 Start: 02-13-2024 End: 05-14-2024 Comprehensive metabolic 2000 panel - Serum or Plasma COMP METABOLIC PANEL Lab Routine Rheumatoid arthritis involving multiple sites with positive rheumatoid factor (HCC) Medication management Expected: 02/13/2024, Expires: 05/14/2024 [facility] Work Phone: Comment on above: Expected: 02/13/2024 , Expires: 05/14/2024 Start: 02-13-2024 End: 05-14-2024 Hemoglobin A1c in Blood HGB A1C Lab Routine Well adult exam Encounter for screening for diabetes mellitus Expected: 02/13/2024, Expires: 05/14/2024 [facility] Work Phone: Comment on above: Expected: 02/13/2024 , Expires: 05/14/2024 Start: 02-13-2024 End: 05-14-2024 LIPID PANEL, NONFASTING LIPID PANEL, NONFASTING Lab Routine Well adult exam Encounter for lipid screening for cardiovascular disease Expected: 02/13/2024, Expires: 05/14/2024 [facility] Work Phone: Comment on above: Expected: 02/13/2024 , Expires: 05/14/2024 Start: 02-13-2024 End: 05-14-2024 Magnesium [Mass/volume] in Serum or Plasma MAGNESIUM BLD Lab Routine GERD without esophagitis Medication management Expected: 02/13/2024, Expires: 05/14/2024 [facility] Work Phone: Comment on above: Expected: 02/13/2024 , Expires: 05/14/2024 Start: 02-13-2024 Screening for malign ant neoplasm of colon Colorectal Cancer Screening [facility] Comment on above: Postponed from 12/29 (Insurance Coverage) Start: 02-07-2024 COVID-19 VACCINE (3 - Pfizer risk series) COVID-19 VACCINE (3 - Pfizer risk series) [facility] Comment on above: Postponed from 08/22 (Declined at this time) Start: 02-07-2024 SHINGRIX VACCINE (1 of 2) QUIJANO GRIX VACCINE (1 of 2) [facility] Comment on above: Postponed from 12/29 (Declined at this time) Start: 01-23-2024 End: 01-23-2024 Patient encounter procedure 01/23/2024 9:30 AM EDT Office Visit [facility]opedic [facility] [address] [place] [address] [place] [phone] Ina Peterson MD [address] [facility] [address] [place], [place] [phone] [facility] Start: 11-11-2023 Depression Assessment Depression Ass essment [facility] Start: 10-31-2023 End: 10-31-2023 Patient encounter procedure 10/31/2023 10:00 AM EST Office Visit [facility] [address] [place] [address] [place] [phone] Ina Peterson MD [address] [facility] [address] [place] [address] [facility] Start: 09-19-2023 End: 09-19-2023 Patient encounter procedure 09/19/2023 10:45 AM EST Office Visit [facility] [address] [place] [address] [place] [phone] Ina Peterson MD [address] [facility] [address] [place] [address] [facility]opedic [facility] Start: 09-10-2023 End: 09-10-2024 XR Wrist - right 3 Views XR wrist 3+ views right Imaging Routine Right wrist pain Expected: 09/10/2023, Expires: 09/10/[address] [facility] Work Phone: Comment on above: Expected: 09/10/2023 , Expires: 09/10/2024 Start: 09-03-2023 Colonoscopy COLONOSCOPY [facility] Start: 09-03-2023 COLORECTAL CANCER SCREENING COLORECTAL CANCER SCREENING [facility] Start: 09-03-2023 Screening for malign ant neoplasm of colon [facility] Start: 07-12-2023 COVID-19 Vaccine () COVID-19 Vaccine () [facility] Start: 07-12-2023 Influenza vaccination Influenza Vacc ine (#1) [facility] Start: 05-15-2023 Application short ar m splint forearm-hand static APPLY FOREARM SPLINT [facility] Start: 02-06-2023 End: 04-08-2023 Cobalamin (Vitamin B12) [Mass/volume] in Serum or Plasma VITAMIN B12 BLOOD Lab Routine GERD without esophagitis Medication management Expected: 02/06/2023, Expires: 04/08/2023 [facility] Work Phone: Comment on above: Expected: 02/06/2023 , Expires: 04/08/2023 Start: 02-06-2023 End: 04-08-2023 Hemoglobin A1c in Blood HGB A1C Lab Routine Well adult exam Encounter for screening for diabetes mellitus Expected: 02/06/2023, Expires: 04/08/2023 [facility] Work Phone: Comment on above: Expected: 02/06/2023 , Expires: 04/08/2023 Start: 02-06-2023 End: 04-08-2023 Hepatic function 2000 panel - Serum or Plasma HEPATIC FUNCTION PNL Lab Routine Fatty liver Expected: 02/06/2023, Expires: 04/08/2023 [facility] Work Phone: Comment on above: Expected: 02/06/2023 , Expires: 04/08/2023 Start: 02-06-2023 End: 04-08-2023 LIPID PANEL, NONFASTING LIPID PANEL, NONFASTING Lab Routine Well adult exam Encounter for lipid screening for cardiovascular disease Expected: 02/06/2023, Expires: 04/08/2023 [facility] Work Phone: Comment on above: Expected: 02/06/2023 , Expires: 04/08/2023 Start: 02-06-2023 End: 04-08-2023 Magnesium [Mass/volume] in Serum or Plasma MAGNESIUM BLD Lab Routine GERD without esophagitis Medication management Expected: 02/06/2023, Expires: 04/08/2023 [facility] Work Phone: Comment on above: Expected: 02/06/2023 , Expires: 04/08/2023 Start: 02-05-2023 COVID-19 VACCINE (3 - Pfizer risk 4-dose series) COVID-19 VACCINE (3 - Pfizer risk 4-dose series) [facility] Comment on above: Postponed from 08/22 (Declined at this time) Start: 02-05-2023 COVID-19 VACCINE (3 - Pfizer risk series) COVID-19 VACCINE (3 - Pfizer risk series) [facility] Comment on above: Postponed from 08/22 (Declined at this time) Start: 02-05-2023 HEPATITIS C SCREENING HEPATITIS C [facility] Comment on above: Postponed from 12/29 (Declined at this time) Start: 02-05-2023 SHINGRIX VACCINE (1 of 2) QUIJANO GRIX VACCINE (1 of 2) [facility] Comment on above: Postponed from 12/29 (Declined at this time) Postponed from 12/29 (Declined at this time) Start: 01-12-2023 Mammography MAMMOGRAM [facility] Start: 11-11-2022 DEPRESSION ASSESSMENT DEPRESSION ASS ESSMENT [facility] Start: 07-12-2022 Influenza vaccination INFLUENZA (#1) [facility] Start: 03-11-2022 Lipid panel Lipid Panel [facility] Start: 09-19-2021 COVID-19 Vaccine (3 - Pfizer series) COVID-19 Vaccine (3 - Pfizer series) [facility] Start: 07-26-2021 Screening for malign ant neoplasm of cervix Cervical Cancer Screening [facility] Start: 07-10-2018 Pneumococcal Vaccine : 50+ (2 of 2 - PPSV23) Pneumococcal Vaccine: 50+ (2 of 2 - PPSV23) [facility] Start: 2017 Zoster Vaccines (1 of 2) Zoste r Vaccines (1 of 2) [facility] Start: 04-25-2017 End: 04-25-2017 Appointment Appointment [facility] Work Phone: Start: 03-11-2017 End: 03-11-2017 Appointment Appointment [facility] Work Phone: Start: 03-11-2017 End: 03-12-2017 *BMP *BMP [facility] Work Phone: Start: 03-11-2017 End: 03-12-2017 *Hepatic Function Panel *Hepatic Function Panel [facility] Work Phone: Start: 03-11-2017 End: 03-12-2017 aPTT *PTT-Partial Thromboplastin Time [facility] Work Phone: Start: 03-11-2017 End: 03-12-2017 CBC W Auto Differential panel - Blood *CBC without Diff [facility] Work Phone: Start: 03-11-2017 End: 03-13-2017 Chest x-ray X-Ray, Chest, PA & Lateral [facility] Work Phone: Start: 03-11-2017 End: 03-12-2017 Coagulation factor induced.INR assay in platelet poor plasma *PT/INR [facility] Work Phone: Start: 03-11-2017 End: 03-11-2017 Echocardiography Echocardiogram (complete) [facility] Work Phone: Start: 03-11-2017 End: 03-11-2017 Electrocardiogram, complete EKG (In office) [facility] Work Phone: Start: 03-11-2017 End: 03-11-2017 Follow Up Appt 6 weeks Follow Up Appt 6 weeks [facility] Work Phone: Start: 03-11-2017 End: 03-11-2017 Left Heart Cath Left Heart Cath [facility] Work Phone: Start: 03-11-2017 End: 03-12-2017 Lipid panel [AGGREGATE] *Lipid Profile CC PCP [facility] Work Phone: Start: 03-11-2017 End: 03-11-2017 MMM MMM [facility] Work Phone: Start: 2012 COLOGUARD (FIT-DNA) COLOGUARD (FIT-D NA) [facility] Start: [address] COLONOGRAPHY [facility] Start: 2012 FECAL OCCULT BLOOD FECAL OCCULT BLOO D [facility] Start: 2012 Screening for malign ant neoplasm of colon [facility] Start: 2012 SIGMOIDOSCOPY SIGMOIDOSCOPY [facility] Start: 2007 Screening for malign ant neoplasm of breast Mammogram [facility] Start: 1997 Screening for malign ant neoplasm of cervix [facility] Start: 1988 Screening for malign ant neoplasm of cervix Pap Smear [facility] Start: 1986 Hepatitis A Vaccines (1 of 2 - Risk 2-dose series) Hepatitis A Vaccines (1 of 2 - Risk 2-dose series) [facility] Start: 1986 Hepatitis B Vaccines (1 of 3 - 19+ 3-dose series) Hepatitis B Vaccines (1 of 3 - 19+ 3-dose series) [facility] Start: 1985 Anxiety Screening Anxiety Screening [facility] Start: 1985 Depression Screening Depression Scre ening [facility] Start: 1985 Diabetes mellitus screening Diabetes Screening [facility] Start: 1985 Hepatitis C screening Hepatitis C Sc reening [facility] Start: 1979 Depression Screening Depression Scre ing [facility] Start: 1968 MMR Vaccines (1 of 1 - Standard series) MMR Vaccines (1 of 1 - Standard series) [facility] Start: 1967 HEPATITIS B (1 of 3 - 3-dose series) HEPATITIS B (1 of 3 - 3-dose series) [facility] Start: 1967 Hepatitis B Vaccines (1 of 3 - 3-dose series) Hepatitis B Vaccines (1 of 3 - 3-dose series) [facility] Start: 1967 HIV screening HIV Screening [facility] Start: 1967 Screening for malign ant neoplasm of colon [facility] End: 03-18-2026 DBT Breast - bilateral screening [facility] Work Phone: Comment on above: 1 Occurrences starti ng 02/17/2025 until 03/18/2026 1 Occurrences starti ng 02/16/2025 until 03/18/2026 DBT Breast - bilater al screening [facility] [facility] Routine Encounter for screening mammogram for breast cancer 02/19/2025 9:23 AM EDT [facility] Work Phone: End: 03-27-2026 DBT Breast - bilateral screening [facility] [place] Radiology Routine Encounter for screening mammogram for breast cancer 1 Occurrences starting 02/25/2025 until 03/27/2026 [facility] Work Phone: Comment on above: 1 Occurrences starti ng 02/25/2025 until 03/27/2026 Hzv zoster vacc recombinant adjuvanted im njx ZOSTER VACCINE, RECOMBINANT (SHINGRIX) Immunization/Injection Routine Need for vaccination Ordered: 03/17/2024 [facility] Work Phone: Comment on above: Ordered: 03/17/2024 End: 03-07-2024 MAKENZIE SCREENING [facility]EN[facility] Radiology Routine Encounter for screening mammogram for breast cancer 1 Occurrences starting 02/06/2023 until 03/07/2024 [facility] Work Phone: Comment on above: 1 Occurrences starti ng 02/06/2023 until 03/07/2024 PAP TEST PAP TEST Lab [facility] Encounter for gynecological examination (general) (routine) without abnormal findings Encounter for screening for human papillomavirus (HPV) Pap smear for cervical cancer screening 02/25/2025 9:08 AM EDT [facility] Patient Education [facility] Work Phone: Patient referral [facility] Work Phone: Pressurized/nonpress urized inhalation treatment NEBULIZER INHALATION TREATMENT Procedures Routine Persistent cough Sinobronchitis Ordered: 12/18/2024 [facility] Work Phone: Comment on above: Ordered: 12/18/2024 End: 02-22-2026 Screening colonoscopy COLONOSCOPY SCREENING Endoscopy Routine Screening for colon cancer 1 Occurrences starting 02/22/2025 until 02/22/2026 [facility] Work Phone: Comment on above: 1 Occurrences starti ng 02/22/2025 until 02/22/2026 Tissue Pathology bio psy report [facility] Work Phone: Comment on above: Release Upon Orderin g for 1 Occurrences starting 03/09/2025, 1 completed End: 03-19-2026 US Thyroid gland US THYROID/PARATHYROID Radiology Routine Multiple thyroid nodules 1 Occurrences starting 02/17/2025 until 03/19/2026 [facility] Comment on above: 1 Occurrences starti ng 02/17/2025 until 03/19/2026 US Thyroid gland US THYROID/PARA THYROID Radiology Routine Multiple thyroid nodules 02/18/2025 8:24 AM EDT [facility] Work Phone: End: 10-24-2023 XR Wrist - right 3 [employer] stem Work Phone: Comment on above: Once for 1 Occurrenc es starting 10/24/2023 until 10/24/2023 [facility] Immunizations Immunization Date Immunization Notes Care Provider Agustina conde 03-18-2024 zoster vaccine recombinant Mi Nurse Work Phone: [facility] 08-17-2022 influenza, seasonal, injectable Herman Murray MD Work Phone: [facility] Work Phone: 08-17-2022 influenza virus vaccine, unspecified formulation Herman Murray MD Work Phone: [facility] 08-11-2021 influenza, injectabl e, quadrivalent, contains preservative Us 1 Work Phone: [facility] 07-25-2021 Pfizer SARS-CoV-2 Vaccination Ina Peterson MD Work Phone: [facility] 07-04-2021 Pfizer SARS-CoV-2 Vaccination nIa Peterson MD Work Phone: [facility] 07-25-2018 influenza, injectabl e, quadrivalent, contains preservative Us 1 Work Phone: [facility] 05-15-2018 pneumococcal conjuga te vaccine, 13 valent Us 1 Work Phone: [facility] Work Phone: 11-14-2017 tetanus toxoid, redu arthur diphtheria toxoid, and acellular pertussis vaccine, adsorbed Us 1 Work Phone: [facility] 09-06-2017 influenza, seasonal, injectable Us 1 Work Phone: [facility] 08-16-2015 influenza virus vaccine, unspecified formulation Us 1 Work Phone: [facility] 11-25-2007 tetanus toxoid, redu arthur diphtheria toxoid, and acellular pertussis vaccine, adsorbed Us 1 Work Phone: [facility] Work Phone: Payers Date Payer Category Payer Self-pay [id number] 2021 [employer] [facility] BLUE ACCE PPO Member Subscriber Plan / Payer (Effective 2021-Present) Name: Emilia Hensley Relation to Subscriber: Self Name: Emilia Hensley Payer ID: [id number] (NAIC) Type: PPO Address: [place] [id number] 2021 Unknown [facility] ACCE SS PPO [id number] 2021-Present [phone] [place] [address] PPO [id number] 2020 Unknown [id number] 2006 Unknown [id number] Unknown [id number] Unknown [id number] Unknown [id number] Unknown [id number] Unknown [id number] Unknown [id number] Unknown [id number] Unknown [id number] Unknown [id number] Unknown [id number] Social History Date Type Detail Facility Start: 07-10-2011 End: 12-13-2024 Tobacco smoking status SCIS Never smoked tobacco [facility] Work Phone: Start: 02-05-2022 End: 03-09-2025 Alcohol intake Current non-drinker of alcohol (finding) [facility] Start: 01-03-2022 End: 01-13-2023 History SDOH Housing Unable to Pay 3 [facility] Start: 11-21-2019 Education 21 [facility] Start: 1965 Sex Assigned At Not on file [facility] Start: 09-24-2021 End: 04-11-2022 Exposure to SARS-CoV-2 (event) Not sure [facility] Start: 07-11-2020 End: 05-15-2023 Tobacco smoking status NHIS Unknown if ever smoked [facility] Start: 1965 Sex Assigned At Female [facility] Start: 07-10-2011 End: 01-18-2023 Tobacco use and exposure Smokeless tobacco non-user [facility] Work Phone: Start: 01-13-2023 End: 02-05-2024 History of Social function [facility] Start: 01-13-2023 End: 02-05-2024 Social connection and isolation panel [facility] In a typical week, h ow many times do you talk on the telephone with family, friends, or neighbors? Patient refused [facility] Are you now , , , , never or living with a partner? Refused [facility] (I/We) worried wheth er (my/our) food would run out before (I/we) got money to buy more. DK or Refused [facility] Are you now , , , , never or living with a partner? [facility] How often to you hav e a drink containing alcohol? Never [facility] Do you feel stress - tense, restless, nervous, or anxious, or unable to sleep at night because your mind is troubled all the time - these days [OSQ] Not at all [facility] (I/We) worried [facility] er (my/our) food would run out before (I/we) got money to buy more. Never true [facility] Start: 02-25-2025 Sex Female (finding) [facility] Functional Status Date Assessment Result Facility 03-03-2015 Are you deaf, or do you have serious difficulty hearing No 03/03/2015 8:09 AM Basilio Das LPN No [facility] 03-03-2015 Are you blind, or do you have serious difficulty seeing, even when wearing glasses No 03/03/2015 8:09 AM Basilio Das LPN No [facility] 03-03-2015 Do you have serious difficulty walking or climbing stairs No 03/03/2015 8:09 AM EDT Basilio Parks LPN No [facility] 03-03-2015 Do you have difficul ty dressing or bathing No 03/03/2015 8:09 AM EDT Basilio Parks LPN No [facility] 03-03-2015 Because of a physica l, mental, or emotional condition, do you have difficulty doing errands alone such as visiting a physician's office or shopping No 03/03/2015 8:09 AM EDT Basilio Parks LPN No [facility] Mental Status Date Assessment Result Facility 03-03-2015 Because of a physica l, mental, or emotional condition, do you have serious difficulty concentrating, remembering, or making decisions No 03/03/2015 8:09 AM EDT Basilio Parks LPN No [facility] Clinical Notes 09-22-2015 to 03-30-2025 Vale Macias APRN.[facility] - 03/17/2025 9:00 AM EDTTelephone Encounter - Analilia Diaz MA - 03/12/2025 1:20 PM EDTTelephone Encounter - Analilia Diaz MA - 03/12/2025 1:20 PM EDT Note Date & Type Note Facility 03-30-2025 Note HNO ID: [id number] Author: BASILIO PARKS LPN Service: ? Author Type: LICENSED NURSE Type: Progress Notes Filed: 03/30/2025 11:54 Note Text: Scan on 03/30/2025 11:11 AM by ProviderMirela PA-C: Hematology Scan on 03/30/2025 11:37 AM by Mirela Rodriguez PA-C: Chemistry [facility] 03-17-2025 History of Presen t illness Narrative FOLLOW UP VISIT - ENDOSCOPY Emilia Hensley 1965 [id number] REFERRING PHYSICIAN: No referring provider defined for this encounter. Emilia Hensley is a patient I am following for screening colonoscopy. Dr. Orr performed lower endoscopy on 03/09/25. The patient was found to have Impression: - Non-bleeding internal hemorrhoids. - One 3 to 5 mm polyp in the proximal transverse colon, removed with a cold snare. Resected and retrieved. Clip (MR conditional) was placed. Clip electronic tech: Nodeable. Pathology demonstrated: FINAL DIAGNOSIS A. Colon, transverse, polyp, polypectomy: -Fragments of tubular adenoma. The patient notes no complaints since the procedure. VITALS: There were no vitals taken for this visit. General: patient is alert, cooperative, pleasant and in no acute distress Assessment ASSESSMENT/PLAN: 1. Adenomatous polyp of transverse colon - ICD9: 211.3, ICD10: D12.3 The operative findings and pathology report were reviewed with the patient, and the patient has had the opportunity to ask questions and have questions answered. If the patient notes any problems or changes in bowel function, the patient should contact me immediately. Otherwise I recommend follow up endoscopy in 5 years. HM updated. Discussed treatment plan and patient voices understanding. Patient's questions answered appropriately. Medications and potential side effects were discussed and patient voices understanding. Return to the office as scheduled or as needed for worsening/no improvement. Vale Macias APRN.[employer] documented in this encounter [facility] 03-17-2025 Note HNO ID: [id number] Author: VALE MACIAS APRN.[employer] Service: ? Author Type: Nurse Practitioner Type: Progress Notes Filed: 03/17/2025 09:11 Note Text: FOLLOW UP VISIT - ENDOSCOPY Emilia Hensley 1965 [id number] REFERRING PHYSICIAN: No referring provider defined for this encounter. Emilia Hensley is a patient I am following for screening colonoscopy. Dr. Orr performed lower endoscopy on 03/09/25. The patient was found to have Impression: - Non-bleeding internal hemorrhoids. - One 3 to 5 mm polyp in the proximal transverse colon, removed with a cold snare. Resected and retrieved. Clip (MR conditional) was placed. Clip electronic tech: Nodeable. Pathology demonstrated: FINAL DIAGNOSIS A. Colon, transverse, polyp, polypectomy: -Fragments of tubular adenoma. The patient notes no complaints since the procedure. VITALS: There were no vitals taken for this visit. General: patient is alert, cooperative, pleasant and in no acute distress Assessment ASSESSMENT/PLAN: 1. Adenomatous polyp of transverse colon - ICD9: 211.3, ICD10: D12.3 The operative findings and pathology report were reviewed with the patient, and the patient has had the opportunity to ask questions and have questions answered. If the patient notes any problems or changes in bowel function, the patient should contact me immediately. Otherwise I recommend follow up endoscopy in 5 years. HM updated. Discussed treatment plan and patient voices understanding. Patient's questions answered appropriately. Medications and potential side effects were discussed and patient voices understanding. Return to the office as scheduled or as needed for worsening/no improvement. Vale Macias APRN.[employer] [facility] 03-12-2025 Telephone encounter Note Patient notified and voiced understanding. Analilia Diaz MA [facility] 03-12-2025 Miscellaneous Notes Patient notified and voiced understanding. Analilia Diaz MA Let patient know the UA showed normal to minimal scaring. Tx at this time will continue to be good lipid control and working on weight loss. We we also continue to monitor her labs. Received results of pt's Elastography done at [facility] and ordered by PCP. Basilio Parks LPN Scan on 03/12/2025 10:39 AM by Provider, VEL Dietz: Ultrasound documented in this encounter [facility] 03-12-2025 Telephone encounter Note Let patient know the UA showed normal to minimal scaring. Tx at this time will continue to be good lipid control and working on weight loss. We we also continue to monitor her labs. [facility] 03-12-2025 Telephone encounter Note Received results of pt's Elastography done at [facility] and ordered by PCP. Basilio Parks LPN Scan on 03/12/2025 10:39 AM by Provider, Mirela, VEL: Ultrasound [facility] 03-12-2025 Radiology Diagnostic study note [facility] Imaging Services [address] [place] [address] ABD Limited w/ Elastography MR#: [id number] Acct: [id number] Name: EMILIA HENSLEY Rep #: [id number] : 1965 F 59 From: Nikole Avalos MD PCP: Dr. Herman Murray MD Status: REG CLI Study:ABD Limited w/ Elastography Date of Exa m: 03/12/25 Exam# [id number] Ordering Dr: Tanya Murray MD PROCEDURE: ABD LIMITED W/ ELASTOGRAPHY, 03/12/2025 REASON FOR EXAM: FATTY LIVER COMPARISON: 12/10/2022 TECHNIQUE: Grayscale and color Doppler imaging of the right upper quadrant was performed. Elastography was performed for non-invasive assessment of liver tissue stiffness utilizing a hCentive S-shear wave imaging unit. FINDINGS: Exam reportedly limited by patient condition as reportedly the patient is sensitive to touch. Liver: Echogenic. 13.0 cm in length. Gallbladder: Cholecystectomy. Biliary tree: Unremarkable. CBD measures 3 mm. Pancreas: Partially obscured by shadowing bowel gas, grossly unremarkable as visualized. Right kidney: Unremarkable. 9.7 cm in length. Other: No visualized free fluid. Hepatic elastography: Number of measurements: 15 measurements across 3 regions, 5 measurements per region. US probe: CA1-7A. EQI median: 7.2 kPa EQI median velocity: 1.5 m/s IQR/Med: 14.9-25.7% (kPa) and 7.5-12.4% (m/s). If the IQR/Med is IQR/median >30%(for kPa) or >15% in m/s, the variance in the measurements is a large and the accuracy of the measurement may be in question. US/ABD Limited w/ Elastography IMPRESSION: 1. Appearance of the liver most commonly suggestive of hepatic steatosis. Correlate for clinical and laboratory evidence of chronic liver disease. 2. Liver stiffness is 7.2 kPa. Per the below 2020 SRU criteria, this rules out compensated advanced chronic liver disease in the absence of other known clinical signs. If there are known clinical signs, further testing may be needed for confirmation. 3. Cholecystectomy without biliary dilatation. 4. Additional description as above. Assessment is per the Update to the SRU Liver Elastography Consensus Statement (2020) Note that the above assessment of liver fibrosis is vendor-neutral and intended for use in fibrosis related to viral etiologies and non-alcoholic fatty-liver disease (NAFLD); in causes other than viral hepatitis and NAFLD, the cutoff values are currently not well established. In some patients with NAFLD, the cutoff values for cACLD may be lower (7-9 kPa). Note also that in the setting of elevated LFTs, nonfasting or vascular congestion, the stage of lifer fibrosis may be overestimated. Previous SRU reference values: <1.37 m/s (5.7kPa): No to mild fibrosis 1.37 m/s - 2.2 m/s: Moderate to severe fibrosis >2.2 m/s (15kPa): Significant fibrosis / cirrhosis Reading Location: [id number] CC: Dr. Herman Murray MD ~ Trampoline Team Coach: Signed [facility] 03-09-2025 Note Formatting of this n ote might be different from the original. The patient received a copy of Colonoscopy discharge instructions that contain information for how to contact the physician who performed the procedure and when to seek medical care. [facility] 03-09-2025 Miscellaneous Notes The patient received a copy of Colonoscopy discharge instructions that contain information for how to contact the physician who performed the procedure and when to seek medical care. documented in this encounter [facility] 03-09-2025 History and physical note HISTORY AND PHYSICAL Emilia Hensley : 1965 REFERRING PHYSICIAN: Herman Murray [address] [place] [id number] CHIEF COMPLAINT: Patient presents with: consult for colonoscopy HPI: Emilia is a 59 year old female referred for endoscopy. Emilia notes due for screening colonoscopy. Emilia denies abdominal pain. Emilia denies diarrhea. Emilia denies constipation. Emilia denies a change in bowel habits. Emilia denies melena. Emilia denies bright red blood per rectum. Emilia denies hemorrhoids. Emilia denies family history of colon issues. Emilia denies heartburn. Emilia denies dysphagia. Emilia denies a history of ulcers/ peptic ulcer disease. Emilia's medical hx is significant for RA, trigeminal neuralgia, multiple thyroid nodules, GERD, and IBS Emilia has undergone prior endoscopy. Last EGD & colonoscopy was 08/[address] Burger at [facility]. Sedation:Fentanyl 100 micrograms IV, Midazolam 7 mg IV EGD Impression: - Normal esophagus. - Chronic gastritis. Biopsied. - Normal examined duodenum. Biopsied. COLONOSCOPY Impression: - The entire examined colon is normal. Biopsied. CURRENT MEDICATIONS Current Outpatient Medications Medication Sig tocilizumab (ACTEMRA) 162 mg/0.9 mL subcutaneous injection Inject 0.9 mL subcutaneously one time a week. Per rheum leucovorin (LEUCOVORIN) 5 mg tablet Take 3 Tablet(s) Oral once a week methotrexate 2.5 mg tablet 6 TABLETS once each week. esomeprazole magnesium (NEXIUM 24HR) 22.3 mg cpDR Take 1 capsule by mouth once daily. Per Dr. Varghese FOLIC ACID ORAL Take by mouth twice daily. Not sure of mg multivits w-ca,fe,other min(ONE-A-DAY WOMENS FORMULA 27 MG-0.4 MG TAB) Take one(1) tablet daily. acetaminophen(TYLENOL EXTRA STRENGTH 500 MG TAB) as necessary for pain. use as directed peg 3350-Electrolytes (GOLYTELY) 236-22.74-6.74 -5.86 gram suspension Take 4,000 mL by mouth one time only for 1 dose. Refer to printed prep instructions from your provider. No current facility-administered medications for this visit. ALLERGIES: Quinones, Penicillins, Adhesive Tape-Silicones, and Pneumovax 23 [Pneumococcal 23-Mati Ps Vaccine] PAST MEDICAL HISTORY PAST MEDICAL HISTORY Diagnosis Date Carpal tunnel syndrome, right 02/13/2024 Closed fracture of distal end of right radius with malunion 02/13/202405/2023: Seen [place] ortho then Dr. Null at [facility] Complex regional pain syndrome type 1 of right upper extremity 02/13/2024 After injury to the wrist 05/2023. Seen by hand specilist Dr. Null ([facility]) COVID-19 virus infection 11/27/202111/2021 Encounter for lipid screening for cardiovascular disease 02/13/2024 Fatty liver 01/07/2023 Per US done 12/2022 per Rheum for elevated LFT's GERD without esophagitis 06/25/2018 History of COVID-19 11/27/202111/2021 IBS (irritable bowel syndrome) 09/22/2015 Multiple thyroid nodules 01/06/2019 Neck pain 03/05/2013 Obesity, Class I, BMI 30-34.9 02/15/2022 PAIN JOINT, ELBOW 05/21/2008 Rheumatoid arthritis involving multiple sites with positive rheumatoid factor (HCC) 01/23/[address] Vraghese Trigeminal neuralgia 03/05/2013 Believe it was humara related. Well adult exam 11/14/2017 last done: 12/31/2018 PAST SURGICAL HISTORY PAST SURGICAL HISTORY Procedure Laterality Date 2D ECHO (EXEP) 03/12/2017 EF=65%, no valve issues ADENOIDECTOMY PRIMARY Adenoidectomy CARDIAC CATH 03/13/2017 normal vessels COLONOSCOPY FLX DX W/COLLJ SPEC WHEN PFRMD 09/03/2013 normal, repeat due 2022 ESOPHAGOGASTRODUODENOSCOPY TRANSORAL DIAGNOSTIC 09/03/2013 chronic gastritis LAPAROSCOPY SURG CHOLECYSTECTOMY 02/15/2022 TONSILLECTOMY PRIMARY/SECONDARY Tonsillectomy FAMILY HISTORY FAMILY HISTORY Problem Relation Age of Onset Breast Cancer Mother Diabetes Mother Cancer Father not known Heart disease Sister Hypertension Sister Diabetes Sister Hyperlipidemia Sister Thyroid Sister Alzheimer's Disease No Family History Colon Cancer No Family History Prostate Cancer No Family History Ovarian cancer No Family History Coronary Artery Disease No Family History Kidney Disease No Family History Seizures No Family History Stroke No Family History SOCIAL HISTORY Social History Tobacco Use Smoking status: Never Smokeless tobacco: Never Vaping Use Vaping status: Never Used Substance Use Topics Alcohol use: No Drug use: No REVIEW OF SYMPTOMS: SEE HPI PHYSICAL EXAMINATION: General: The patient is 59 year old, female well nourished, well hydrated in no acute distress. The patient is oriented to time, place, and person. VITALS: Blood pressure 129/83, pulse 77, temperature 36.3 C (97.3 F), resp. rate 16, weight 80.3 kg (177 lb), last menstrual period 04/20/2019, SpO2 99%. Body mass index is 32.9 kg/m . HEENT: Normal cephalic, ataumatic, pupils are equally round, sclera are anicteric, mucous membranes are moist, oropharynx is clear. Neck has no masses, asymmetry or lymphadenopathy. Respiratory: Clear to auscultation and percussion. Normal respiratory excursion and pattern. Cardiac: Examination is regular rate and rhythm. Normal S1/S2 Abdominal exam: Soft, nontender, with no palpable masses. No hepatosplenomegaly. No palpable hernias. Extremities: no clubbing, cyanosis or edema. No adenopathy. LABORATORY VALUES: As Noted RADIOLOGIC STUDIES: As Noted Assessment IMPRESSION: screen for colon cancer PLAN: I have reviewed my findings with the surgeon. Will plan for lower endoscopy. We discussed the risks and benefits of the planned endoscopy. I have informed the patient that complications can occur including failure to complete the endoscopy and perforation. Emilia had the opportunity to ask questions concerning the planned endoscopy. My staff has also explained the procedure to the patient in understandable terms and has given the patient printed material concerning the procedure. Emilia freely consents to surgery. I plan to use Golytely bowel preparation Emilia is instructed to see guidance regarding Actemra, and if it needs to be held prior to endoscopy. I have explained to the patient the difference between IV conscious sedation and MAC anesthesia - and I have offered either, according to the patient's wishes. I have explained that with IV conscious sedation there is no anesthesia provider available and therefore there is a limitation of the amount of IV medications that can be given and that the patient may wake up in the middle of the procedure and/or experience pain/discomfort during the procedure. Further discussion was done and the patient was given the opportunity to ask questions and all questions were answered. Emilia chooses IV conscious sedation. Emilia was counseled that if there are changes in his/her medical condition, to let the office know if surgery should proceed. If there are changes in patient's medical condition from time of this encounter to the day of the procedure that preclude anesthesia, patient may have procedure cancelled for patient's safety. Diagnoses: (Z12.11) Screening for colon cancer Consultation requested by Dr. Murray for an opinion regarding colon cancer screening. My final recommendations will be communicated back to the requesting physician by way of shared Medical record or letter to requesting physician via US mail. Portions of this documentation were copied and pasted from previous office visit notes in order to provide a cohesive continuity of the history. The note has been reviewed and edited and updated as necessary. Vale Macias APRN.[employer] [facility] Work Phone: 03-09-2025 History and physical note HISTORY AND PHYSICAL Emilia Hensley : 1965 REFERRING PHYSICIAN: Herman Murray [address] [place] [address] CHIEF COMPLAINT: Patient presents with: consult for colonoscopy HPI: Emilia is a 59 year old female referred for endoscopy. Emilia notes due for screening colonoscopy. Emilia denies abdominal pain. Emilia denies diarrhea. Emilia denies constipation. Emilia denies a change in bowel habits. Emilia denies melena. Emilia denies bright red blood per rectum. Emilia denies hemorrhoids. Emilia denies family history of colon issues. Emilia denies heartburn. Emilia denies dysphagia. Emilia denies a history of ulcers/ peptic ulcer disease. Emilia's medical hx is significant for RA, trigeminal neuralgia, multiple thyroid nodules, GERD, and IBS Emilia has undergone prior endoscopy. Last EGD & colonoscopy was 08/[address] Burger at [facility]. Sedation:Fentanyl 100 micrograms IV, Midazolam 7 mg IV EGD Impression: - Normal esophagus. - Chronic gastritis. Biopsied. - Normal examined duodenum. Biopsied. COLONOSCOPY Impression: - The entire examined colon is normal. Biopsied. CURRENT MEDICATIONS Current Outpatient Medications Medication Sig tocilizumab (ACTEMRA) 162 mg/0.9 mL subcutaneous injection Inject 0.9 mL subcutaneously one time a week. Per rheum leucovorin (LEUCOVORIN) 5 mg tablet Take 3 Tablet(s) Oral once a week methotrexate 2.5 mg tablet 6 TABLETS once each week. esomeprazole magnesium (NEXIUM 24HR) 22.3 mg cpDR Take 1 capsule by mouth once daily. Per Dr. Varghese FOLIC ACID ORAL Take by mouth twice daily. Not sure of mg multivits w-ca,fe,other min(ONE-A-DAY WOMENS FORMULA 27 MG-0.4 MG TAB) Take one(1) tablet daily. acetaminophen(TYLENOL EXTRA STRENGTH 500 MG TAB) as necessary for pain. use as directed peg 3350-Electrolytes (GOLYTELY) 236-22.74-6.74 -5.86 gram suspension Take 4,000 mL by mouth one time only for 1 dose. Refer to printed prep instructions from your provider. No current facility-administered medications for this visit. ALLERGIES: Quinones, Penicillins, Adhesive Tape-Silicones, and Pneumovax 23 [Pneumococcal 23-Mati Ps Vaccine] PAST MEDICAL HISTORY PAST MEDICAL HISTORY Diagnosis Date Carpal tunnel syndrome, right 02/13/2024 Closed fracture of distal end of right radius with malunion 02/13/202405/2023: Seen Cindy fitzpatrick then Dr. Null at [facility] Complex regional pain syndrome type 1 of right upper extremity 02/13/2024 After injury to the wrist 05/2023. Seen by hand specilist Dr. Null ([facility]) COVID-19 virus infection 11/27/202111/2021 Encounter for lipid screening for cardiovascular disease 02/13/2024 Fatty liver 01/07/2023 Per US done 12/2022 per Rheum for elevated LFT's GERD without esophagitis 06/25/2018 History of COVID-19 11/27/202111/2021 IBS (irritable bowel syndrome) 09/22/2015 Multiple thyroid nodules 01/06/2019 Neck pain 03/05/2013 Obesity, Class I, BMI 30-34.9 02/15/2022 PAIN JOINT, ELBOW 05/21/2008 Rheumatoid arthritis involving multiple sites with positive rheumatoid factor (HCC) 01/23/[address] Varghese Trigeminal neuralgia 03/05/2013 Believe it was humara related. Well adult exam 11/14/2017 last done: 12/31/2018 PAST SURGICAL HISTORY PAST SURGICAL HISTORY Procedure Laterality Date 2D ECHO (EXEP) 03/12/2017 EF=65%, no valve issues ADENOIDECTOMY PRIMARY <AGE 14 Adenoidectomy CARDIAC CATH 03/13/2017 normal vessels COLONOSCOPY FLX DX W/COLLJ SPEC WHEN PFRMD 09/03/2013 normal, repeat due 2022 ESOPHAGOGASTRODUODENOSCOPY TRANSORAL DIAGNOSTIC 09/03/2013 chronic gastritis LAPAROSCOPY SURG CHOLECYSTECTOMY 02/15/2022 TONSILLECTOMY PRIMARY/SECONDARY <AGE 14 Tonsillectomy FAMILY HISTORY FAMILY HISTORY Problem Relation Age of Onset Breast Cancer Mother Diabetes Mother Cancer Father not known Heart disease Sister Hypertension Sister Diabetes Sister Hyperlipidemia Sister Thyroid Sister Alzheimer's Disease No Family History Colon Cancer No Family History Prostate Cancer No Family History Ovarian cancer No Family History Coronary Artery Disease No Family History Kidney Disease No Family History Seizures No Family History Stroke No Family History SOCIAL HISTORY Social History Tobacco Use Smoking status: Never Smokeless tobacco: Never Vaping Use Vaping status: Never Used Substance Use Topics Alcohol use: No Drug use: No REVIEW OF SYMPTOMS: SEE HPI PHYSICAL EXAMINATION: General: The patient is 59 year old, female well nourished, well hydrated in no acute distress. The patient is oriented to time, place, and person. VITALS: Blood pressure 129/83, pulse 77, temperature 36.3 C (97.3 F), resp. rate 16, weight 80.3 kg (177 lb), last menstrual period 04/20/2019, SpO2 99%. Body mass index is 32.9 kg/m . HEENT: Normal cephalic, ataumatic, pupils are equally round, sclera are anicteric, mucous membranes are moist, oropharynx is clear. Neck has no masses, asymmetry or lymphadenopathy. Respiratory: Clear to auscultation and percussion. Normal respiratory excursion and pattern. Cardiac: Examination is regular rate and rhythm. Normal S1/S2 Abdominal exam: Soft, nontender, with no palpable masses. No hepatosplenomegaly. No palpable hernias. Extremities: no clubbing, cyanosis or edema. No adenopathy. LABORATORY VALUES: As Noted RADIOLOGIC STUDIES: As Noted Assessment IMPRESSION: screen for colon cancer PLAN: I have reviewed my findings with the surgeon. Will plan for lower endoscopy. We discussed the risks and benefits of the planned endoscopy. I have informed the patient that complications can occur including failure to complete the endoscopy and perforation. Emilia had the opportunity to ask questions concerning the planned endoscopy. My staff has also explained the procedure to the patient in understandable terms and has given the patient printed material concerning the procedure. Emilia freely consents to surgery. I plan to use Golytely bowel preparation Emilia is instructed to see guidance regarding Actemra, and if it needs to be held prior to endoscopy. I have explained to the patient the difference between IV conscious sedation and MAC anesthesia - and I have offered either, according to the patient's wishes. I have explained that with IV conscious sedation there is no anesthesia provider available and therefore there is a limitation of the amount of IV medications that can be given and that the patient may wake up in the middle of the procedure and/or experience pain/discomfort during the procedure. Further discussion was done and the patient was given the opportunity to ask questions and all questions were answered. Emilia chooses IV conscious sedation. Emilia was counseled that if there are changes in his/her medical condition, to let the office know if surgery should proceed. If there are changes in patient's medical condition from time of this encounter to the day of the procedure that preclude anesthesia, patient may have procedure cancelled for patient's safety. Diagnoses: (Z12.11) Screening for colon cancer Consultation requested by Dr. Murray for an opinion regarding colon cancer screening. My final recommendations will be communicated back to the requesting physician by way of shared Medical record or letter to requesting physician via [place] mail. Portions of this documentation were copied and pasted from previous office visit notes in order to provide a cohesive continuity of the history. The note has been reviewed and edited and updated as necessary. Vale Macias, KAYCE.[employer] PROFESSIONAL documented in this encounter [facility] 03-03-2025 Progress note Formatting of t his note might be different from the original. Send letter about normal pap if she does not have mychart. Deneen Bush MD [facility] Work Phone: 03-03-2025 Miscellaneous Notes Send letter about normal pap if she does not have mychart. Deneen Bush MD documented in this encounter [facility] 03-02-2025 Telephone encounter Note Faxed and placed referral. Analilia Diaz MA [facility] 03-02-2025 Miscellaneous Notes Faxed and placed referral. Analilia Diaz MA Order ready to be faxed. Patient notified of results, verbalizes understanding of instructions. States that she is fine with completing US as recommended. She did also state that she has an appt with Dr Polanco and will discuss whether she feels her medication may be contributing to any of this. Please send order to [facility]. Pt will call them to schedule appt. Sonia Rivera LPN Let patient know her lipid panel showed her Trigs and HDL were ok. Her LDL (bad chol) is elevated at 168 (goal<130). Working on reduced fat in the diet and increased exercise can help lower it. Her other labs were ok. When I calculated her fibrosis risk score for her liver it was 1.35. anything over 1.3 for someone under the age of 65 is elevated. I would like to get a Liver US with elastography done at [facility]. If ok we will send in the order. Scan on 02/22/2025 11:42 AM by Provider, External, PA-C: Chemistry Scan on 02/22/2025 12:10 PM by Provider, External, PA-C: Chemistry Please review results. Analilia Diaz MA documented in this encounter [facility] 03-02-2025 Telephone encounter Note Order ready to be faxed. [facility] 03-02-2025 Telephone encounter Note Patient notified of results, verbalizes understanding of instructions. States that she is fine with completing US as recommended. She did also state that she has an appt with Dr Polanco and will discuss whether she feels her medication may be contributing to any of this. Please send order to [facility]. Pt will call them to schedule appt. Sonia Rivera LPN [facility] 03-01-2025 Telephone encounter Note Let patient know her lipid panel showed her Trigs and HDL were ok. Her LDL (bad chol) is elevated at 168 (goal<130). Working on reduced fat in the diet and increased exercise can help lower it. Her other labs were ok. When I calculated her fibrosis risk score for her liver it was 1.35. anything over 1.3 for someone under the age of 65 is elevated. I would like to get a Liver [facility]. If ok we will send in the order. [facility] 02-25-2025 Note HNO ID: [id number] Author: RONNI DIAZ MD Service: ? Author Type: Physician Type: Progress Notes Filed: 02/25/2025 09:08 Note Text: Manager Advanced offered: Patient declines. Emilia is a 59 year old who presents for an annual gynecologic exam without complaints. Postmenopausal: Yes since age 54 HRT use: No. Age at Menarche: 12 Still get period: No Menopause symptoms: Hot flashes; Night sweats; Vaginal dryness Time with current partner: 30 years control frequency: Never HPV vaccine: Unsure; Last pap smear: 07/26/2020, normal History of abnormal pap: No Bothersome pelvic pain: No Last mammogram: 2024 normal History of abnormal mammogram: Yes , once OB History Gravida1 Para1 Term1 Preterm0 AB0 Living1 SAB0 IAB0 Ectopic0 Multiple0 Live Births0 FAMILY HISTORY Problem Relation Age of Onset Breast Cancer Mother Diabetes Mother Cancer Father not known Heart disease Sister Hypertension Sister Diabetes Sister Hyperlipidemia Sister Thyroid Sister Alzheimer's Disease No Family History Colon Cancer No Family History Prostate Cancer No Family History Ovarian cancer No Family History Coronary Artery Disease No Family History Kidney Disease No Family History Seizures No Family History Stroke No Family History SOCIAL HISTORY Social History Tobacco Use Smoking status: Never Smokeless tobacco: Never Vaping Use Vaping status: Never Used Substance Use Topics Alcohol use: No Drug use: No REVIEW OF SYSTEMS Abdomen: she has a scheduled colonoscopy for GI concerns. Bladder: No dysuria, gross hematuria, urinary frequency, urinary urgency, or incontinence Breast: No breast lumps, nipple d/c, overlying skin changes, redness or skin retraction Allergies and current medication updated:Yes SENSITIVE EXAM: The sensitive examination was discussed with the Patient or Patient's Authorized Body Worker. As applicable, any other physician, advance practice provider, medical student, or other health professional student that will be observing or involved in the sensitive examination for educational or training purposes was discussed with the Patient or Authorized Body Worker. The Patient or Authorized Body Worker has agreed to proceed with the sensitive examination. (Sensitive examination includes inspection and/or palpation of the breasts, pelvis, prostate and anorectal regions). EXAM: BP 106/70 Ht 5' 1.5 (1.56m) Wt 177 lb 6.4 oz (80.5kg) LMP 04/04/2022 BMI 32.98 kg/(m2). GENERAL: pleasant, female in no apparent distress BREAST: soft, non-tender, symmetric, no dominant mass, normal nipple-areolar complex, no lymphadenopathy, and no nipple discharge CHEST: Normal inspiratory effort ABDOMEN: soft, non-tender, and no masses PELVIC: external genitalia normal, normal Bartholin's glands, urethra, Evart's glands, no cervical lesions, normal appearing perineal body and perianal region; atrophic vagina BIMANUAL: uterus normal size, shape and consistency, no adnexal masses, and non-tender RECTOVAGINAL: deferred. NEURO: alert and oriented x3,exam grossly non-focal EXTREMITIES: normal ASSESSMENT/PLAN: 1) Health maintenance: Pap done with HPV. Mammogram up to date Nutrition, exercise and routine health maintenance exams reviewed. Colon cancer screening: scheduled 2) Follow up one year or sooner as needed 3) Atrophic vaginitis - discussed R/B/A and estrace given Ronni Diaz MD [facility] 02-25-2025 History of Presen t illness Narrative Manager Advanced offered: Patient declines. Emilia is a 59 year old who presents for an annual gynecologic exam without complaints. Postmenopausal: Yes since age 54 HRT use: No. Age at Menarche: 12 Still get period: No Menopause symptoms: Hot flashes; Night sweats; Vaginal dryness Time with current partner: 30 years control frequency: Never HPV vaccine: Unsure; Last pap smear: 07/26/2020, normal History of abnormal pap: No Bothersome pelvic pain: No Last mammogram: 2024 normal History of abnormal mammogram: Yes , once OB History Gravida1 Para1 Term1 Preterm0 AB0 Living1 SAB0 IAB0 Ectopic0 Multiple0 Live Births0 FAMILY HISTORY Problem Relation Age of Onset Breast Cancer Mother Diabetes Mother Cancer Father not known Heart disease Sister Hypertension Sister Diabetes Sister Hyperlipidemia Sister Thyroid Sister Alzheimer's Disease No Family History Colon Cancer No Family History Prostate Cancer No Family History Ovarian cancer No Family History Coronary Artery Disease No Family History Kidney Disease No Family History Seizures No Family History Stroke No Family History SOCIAL HISTORY Social History Tobacco Use Smoking status: Never Smokeless tobacco: Never Vaping Use Vaping status: Never Used Substance Use Topics Alcohol use: No Drug use: No REVIEW OF SYSTEMS Abdomen: she has a scheduled colonoscopy for GI concerns. Bladder: No dysuria, gross hematuria, urinary frequency, urinary urgency, or incontinence Breast: No breast lumps, nipple d/c, overlying skin changes, redness or skin retraction Allergies and current medication updated:Yes SENSITIVE EXAM: The sensitive examination was discussed with the Patient or Patient's Authorized Body Worker. As applicable, any other physician, advance practice provider, medical student, or other health professional student that will be observing or involved in the sensitive examination for educational or training purposes was discussed with the Patient or Authorized Body Worker. The Patient or Authorized Body Worker has agreed to proceed with the sensitive examination. (Sensitive examination includes inspection and/or palpation of the breasts, pelvis, prostate and anorectal regions). EXAM: BP 106/70 Ht 5' 1.5 (1.56m) Wt 177 lb 6.4 oz (80.5kg) LMP 04/04/2022 BMI 32.98 kg/(m^2). GENERAL: pleasant, female in no apparent distress BREAST: soft, non-tender, symmetric, no dominant mass, normal nipple-areolar complex, no lymphadenopathy, and no nipple discharge CHEST: Normal inspiratory effort ABDOMEN: soft, non-tender, and no masses PELVIC: external genitalia normal, normal Bartholin's glands, urethra, Evart's glands, no cervical lesions, normal appearing perineal body and perianal region; atrophic vagina BIMANUAL: uterus normal size, shape and consistency, no adnexal masses, and non-tender RECTOVAGINAL: deferred. NEURO: alert and oriented x3,exam grossly non-focal EXTREMITIES: normal ASSESSMENT/PLAN: 1) Health maintenance: Pap done with HPV. Mammogram up to date Nutrition, exercise and routine health maintenance exams reviewed. Colon cancer screening: scheduled 2) Follow up one year or sooner as needed 3) Atrophic vaginitis - discussed R/B/A and estrace given Ronni Diaz MD documented in this encounter [facility] 02-23-2025 Telephone encounter Note Scan on 02/22/2025 11:42 AM by ProviderMirela PA-C: Chemistry Scan on 02/22/2025 12:10 PM by ProviderMirela PA-C: Chemistry Please review results. Analilia Diaz MA [facility] 02-22-2025 Telephone encounter Note Pt notified of results via [employer]. Kirti Kilgore Ma [facility] 02-22-2025 Miscellaneous Notes Pt notified of results via [employer]. Kirti Kilgore Ma Let patient know screening mammo was ok. Will repeat in a year. documented in this encounter [facility] 02-22-2025 Telephone encounter Note Let patient know screening mammo was ok. Will repeat in a year. [facility] 02-22-2025 Telephone encounter Note Message routed to provider Manasa Macias APRN, CNP to inform . Thank you [facility] 02-22-2025 Miscellaneous Notes Message routed to provider Manasa Macias APRN, CNP to inform . Thank you documented in this encounter [facility] 02-22-2025 Telephone encounter Note Pt returned call and given provider's message below with verbalized understanding. [facility] 02-22-2025 Miscellaneous Notes Pt returned call and given provider's message below with verbalized understanding. Left message for patient to contact office. Analilia Diaz MA Let patient know the thyroid nodule is stable at 5 years. No further f/u imaging needed. documented in this encounter [facility] 02-22-2025 History of Presen t illness Narrative HISTORY AND PHYSICAL Emilia Hensley : 1965 REFERRING PHYSICIAN: Herman Murray [address] [place] [id number] CHIEF COMPLAINT: Patient presents with: consult for colonoscopy HPI: Emilia is a 59 year old female referred for endoscopy. Emilia notes due for screening colonoscopy. Emilia denies abdominal pain. Emilia denies diarrhea. Emilia denies constipation. Emilia denies a change in bowel habits. Emilia denies melena. Emilia denies bright red blood per rectum. Emilia denies hemorrhoids. Emilia denies family history of colon issues. Emilia denies heartburn. Emilia denies dysphagia. Emilia denies a history of ulcers/ peptic ulcer disease. Emilia's medical hx is significant for RA, trigeminal neuralgia, multiple thyroid nodules, GERD, and IBS Emilia has undergone prior endoscopy. Last EGD & colonoscopy was 08/[address] Burger at [facility]. Sedation:Fentanyl 100 micrograms IV, Midazolam 7 mg IV EGD Impression: - Normal esophagus. - Chronic gastritis. Biopsied. - Normal examined duodenum. Biopsied. COLONOSCOPY Impression: - The entire examined colon is normal. Biopsied. Current Outpatient Medications Medication Sig tocilizumab (ACTEMRA) 162 mg/0.9 mL subcutaneous injection Inject 0.9 mL subcutaneously one time a week. Per rheum leucovorin (LEUCOVORIN) 5 mg tablet Take 3 Tablet(s) Oral once a week methotrexate 2.5 mg tablet 6 TABLETS once each week. esomeprazole magnesium (NEXIUM 24HR) 22.3 mg cpDR Take 1 capsule by mouth once daily. Per Dr. Varghese FOLIC ACID ORAL Take by mouth twice daily. Not sure of mg multivits w-ca,fe,other min(ONE-A-DAY WOMENS FORMULA 27 MG-0.4 MG TAB) Take one(1) tablet daily. acetaminophen(TYLENOL EXTRA STRENGTH 500 MG TAB) as necessary for pain. use as directed peg 3350-Electrolytes (GOLYTELY) 236-22.74-6.74 -5.86 gram suspension Take 4,000 mL by mouth one time only for 1 dose. Refer to printed prep instructions from your provider. No current facility-administered medications for this visit. ALLERGIES: Quinones, Penicillins, Adhesive Tape-Silicones, and Pneumovax 23 [Pneumococcal 23-Mati Ps Vaccine] PAST MEDICAL HISTORY Diagnosis Date Carpal tunnel syndrome, right 02/13/2024 Closed fracture of distal end of right radius with malunion 02/13/202405/2023: Seen Cindy Null at [facility] Complex regional pain syndrome type 1 of right upper extremity 02/13/2024 After injury to the wrist 05/2023. Seen by hand specilist Dr. Null ([facility]) COVID-19 virus infection 11/27/202111/2021 Encounter for lipid screening for cardiovascular disease 02/13/2024 Fatty liver 01/07/2023 Per US done 12/2022 per Rheum for elevated LFT's GERD without esophagitis 06/25/2018 History of COVID-19 11/27/202111/2021 IBS (irritable bowel syndrome) 09/22/2015 Multiple thyroid nodules 01/06/2019 Neck pain 03/05/2013 Obesity, Class I, BMI 30-34.9 02/15/2022 PAIN JOINT, ELBOW 05/21/2008 Rheumatoid arthritis involving multiple sites with positive rheumatoid factor (HCC) 01/23/[address] Varghese Trigeminal neuralgia 03/05/2013 Believe it was humara related. Well adult exam 11/14/2017 last done: 12/31/2018 PAST SURGICAL HISTORY Procedure Laterality Date 2D ECHO (EXEP) 03/12/2017 EF=65%, no valve issues ADENOIDECTOMY PRIMARY <AGE 14 Adenoidectomy CARDIAC CATH 03/13/2017 normal vessels COLONOSCOPY FLX DX W/COLLJ SPEC WHEN PFRMD 09/03/2013 normal, repeat due 2022 ESOPHAGOGASTRODUODENOSCOPY TRANSORAL DIAGNOSTIC 09/03/2013 chronic gastritis LAPAROSCOPY SURG CHOLECYSTECTOMY 02/15/2022 TONSILLECTOMY PRIMARY/SECONDARY <AGE 14 Tonsillectomy FAMILY HISTORY Problem Relation Age of Onset Breast Cancer Mother Diabetes Mother Cancer Father not known Heart disease Sister Hypertension Sister Diabetes Sister Hyperlipidemia Sister Thyroid Sister Alzheimer's Disease No Family History Colon Cancer No Family History Prostate Cancer No Family History Ovarian cancer No Family History Coronary Artery Disease No Family History Kidney Disease No Family History Seizures No Family History Stroke No Family History Social History Tobacco Use Smoking status: Never Smokeless tobacco: Never Vaping Use Vaping status: Never Used Substance Use Topics Alcohol use: No Drug use: No REVIEW OF SYMPTOMS: SEE HPI PHYSICAL EXAMINATION: General: The patient is 59 year old, female well nourished, well hydrated in no acute distress. The patient is oriented to time, place, and person. VITALS: Blood pressure 129/83, pulse 77, temperature 36.3 C (97.3 F), resp. rate 16, weight 80.3 kg (177 lb), last menstrual period 04/20/2019, SpO2 99%. Body mass index is 32.9 kg/m . HEENT: Normal cephalic, ataumatic, pupils are equally round, sclera are anicteric, mucous membranes are moist, oropharynx is clear. Neck has no masses, asymmetry or lymphadenopathy. Respiratory: Clear to auscultation and percussion. Normal respiratory excursion and pattern. Cardiac: Examination is regular rate and rhythm. Normal S1/S2 Abdominal exam: Soft, nontender, with no palpable masses. No hepatosplenomegaly. No palpable hernias. Extremities: no clubbing, cyanosis or edema. No adenopathy. LABORATORY VALUES: As Noted RADIOLOGIC STUDIES: As Noted Assessment IMPRESSION: screen for colon cancer PLAN: I have reviewed my findings with the surgeon. Will plan for lower endoscopy. We discussed the risks and benefits of the planned endoscopy. I have informed the patient that complications can occur including failure to complete the endoscopy and perforation. Emilia had the opportunity to ask questions concerning the planned endoscopy. My staff has also explained the procedure to the patient in understandable terms and has given the patient printed material concerning the procedure. Emilia freely consents to surgery. I plan to use Golytely bowel preparation Emilia is instructed to see guidance regarding Actemra, and if it needs to be held prior to endoscopy. I have explained to the patient the difference between IV conscious sedation and MAC anesthesia - and I have offered either, according to the patient's wishes. I have explained that with IV conscious sedation there is no anesthesia provider available and therefore there is a limitation of the amount of IV medications that can be given and that the patient may wake up in the middle of the procedure and/or experience pain/discomfort during the procedure. Further discussion was done and the patient was given the opportunity to ask questions and all questions were answered. Emilia chooses IV conscious sedation. Emilia was counseled that if there are changes in his/her medical condition, to let the office know if surgery should proceed. If there are changes in patient's medical condition from time of this encounter to the day of the procedure that preclude anesthesia, patient may have procedure cancelled for patient's safety. Diagnoses: (Z12.11) Screening for colon cancer Consultation requested by Dr. Murray for an opinion regarding colon cancer screening. My final recommendations will be communicated back to the requesting physician by way of shared Medical record or letter to requesting physician via [place] mail. Portions of this documentation were copied and pasted from previous office visit notes in order to provide a cohesive continuity of the history. The note has been reviewed and edited and updated as necessary. Vale Macias APRN.CNP documented in this encounter [facility] 02-22-2025 Note HNO ID: [id number] Author: VALE MACIAS APRN.CNP Service: ? Author Type: Nurse Practitioner Type: Progress Notes Filed: 02/22/2025 10:37 Note Text: HISTORY AND PHYSICAL Emilia Hensley : 1965 REFERRING PHYSICIAN: Herman Murray [address] [place] [id number] CHIEF COMPLAINT: Patient presents with: consult for colonoscopy HPI: Emilia is a 59 year old female referred for endoscopy. Emilia notes due for screening colonoscopy. Emilia denies abdominal pain. Emilia denies diarrhea. Emilia denies constipation. Emilia denies a change in bowel habits. Emilia denies melena. Emilia denies bright red blood per rectum. Emilia denies hemorrhoids. Emilia denies family history of colon issues. Emilia denies heartburn. Emilia denies dysphagia. Emilia denies a history of ulcers/ peptic ulcer disease. Emilia's medical hx is significant for RA, trigeminal neuralgia, multiple thyroid nodules, GERD, and IBS Emilia has undergone prior endoscopy. Last EGD AND colonoscopy was 08/[address] Burger at [facility]. Sedation:Fentanyl 100 micrograms IV, Midazolam 7 mg IV EGD Impression: - Normal esophagus. - Chronic gastritis. Biopsied. - Normal examined duodenum. Biopsied. COLONOSCOPY Impression: - The entire examined colon is normal. Biopsied. Current Outpatient Medications Medication Sig tocilizumab (ACTEMRA) 162 mg/0.9 mL subcutaneous injection Inject 0.9 mL subcutaneously one time a week. Per rheum leucovorin (LEUCOVORIN) 5 mg tablet Take 3 Tablet(s) Oral once a week methotrexate 2.5 mg tablet 6 TABLETS once each week. esomeprazole magnesium (NEXIUM 24HR) 22.3 mg cpDR Take 1 capsule by mouth once daily. Per Dr. Varghese FOLIC ACID ORAL Take by mouth twice daily. Not sure of mg multivits w-ca,fe,other min(ONE-A-DAY WOMENS FORMULA 27 MG-0.4 MG TAB) Take one(1) tablet daily. acetaminophen(TYLENOL EXTRA STRENGTH 500 MG TAB) as necessary for pain. use as directed peg 3350-Electrolytes (GOLYTELY) 236-22.74-6.74 -5.86 gram suspension Take 4,000 mL by mouth one time only for 1 dose. Refer to printed prep instructions from your provider. No current facility-administered medications for this visit. ALLERGIES: Quinones, Penicillins, Adhesive Tape-Silicones, and Pneumovax 23 [Pneumococcal 23-Mati Ps Vaccine] PAST MEDICAL HISTORY Diagnosis Date Carpal tunnel syndrome, right 02/13/2024 Closed fracture of distal end of right radius with malunion 02/13/202405/2023: Seen Cindy fitzpatrick then Dr. Null at [facility] regional pain syndrome type 1 of right upper extremity 02/13/2024 After injury to the wrist 05/2023. Seen by hand specilist Dr. Null ([facility]) COVID-19 virus infection 11/27/202111/2021 Encounter for lipid screening for cardiovascular disease 02/13/2024 Fatty liver 01/07/2023 Per US done 12/2022 per Rheum for elevated LFT's GERD without esophagitis 06/25/2018 History of COVID-19 11/27/202111/2021 IBS (irritable bowel syndrome) 09/22/2015 Multiple thyroid nodules 01/06/2019 Neck pain 03/05/2013 Obesity, Class I, BMI 30-34.9 02/15/2022 PAIN JOINT, ELBOW 05/21/2008 Rheumatoid arthritis involving multiple sites with positive rheumatoid factor (HCC) 01/23/[address] Varghese Trigeminal neuralgia 03/05/2013 Believe it was humara related. Well adult exam 11/14/2017 last done: 12/31/2018 PAST SURGICAL HISTORY Procedure Laterality Date 2D ECHO (EXEP) 03/12/2017 EF=65%, no valve issues ADENOIDECTOMY PRIMARY Adenoidectomy CARDIAC CATH 03/13/2017 normal vessels COLONOSCOPY FLX DX W/COLLJ SPEC WHEN PFRMD 09/03/2013 normal, repeat due 2022 ESOPHAGOGASTRODUODENOSCOPY TRANSORAL DIAGNOSTIC 09/03/2013 chronic gastritis LAPAROSCOPY SURG CHOLECYSTECTOMY 02/15/2022 TONSILLECTOMY PRIMARY/SECONDARY Tonsillectomy FAMILY HISTORY Problem Relation Age of Onset Breast Cancer Mother Diabetes Mother Cancer Father not known Heart disease Sister Hypertension Sister Diabetes Sister Hyperlipidemia Sister Thyroid Sister Alzheimer's Disease No Family History Colon Cancer No Family History Prostate Cancer No Family History Ovarian cancer No Family History Coronary Artery Disease No Family History Kidney Disease No Family History Seizures No Family History Stroke No Family History Social History Tobacco Use Smoking status: Never Smokeless tobacco: Never Vaping Use Vaping status: Never Used Substance Use Topics Alcohol use: No Drug use: No REVIEW OF SYMPTOMS: SEE HPI PHYSICAL EXAMINATION: General: The patient is 59 year old, female well nourished, well hydrated in no acute distress. The patient is oriented to time, place, and person. VITALS: Blood pressure 129/83, pulse 77, temperature 36.3 ?C (97.3 ?F), resp. rate 16, weight 80.3 kg (177 lb), last menstrual period 04/20/2019, SpO2 99%. Body mass index is 32.9 kg/m?. HEENT: Normal cephalic, ataumatic, pupils are equally round, sclera are anicter (more content not included)... [facility] 02-22-2025 Telephone encounter Note Left message for patient to contact office. Analilia Diaz MA [facility] 02-20-2025 Telephone encounter Note Let patient know the thyroid nodule is stable at 5 years. No further f/u imaging needed. [facility] 02-19-2025 History of Presen t illness Narrative Radiology Service Progress Note PATIENT NAME: Emilia Hensley DATE OF SERVICE: February 19, 2025 TIME: 9:42 AM PATIENT IDENTITY VERIFICATION COMPLETED USING TWO (2) IDENTIFIERS: Name and Date of confirmed by patient verbally. FALL SCREENING: Has the patient had 2 falls in the last year or 1 fall with injury or currently using an Ambulatory Assistive Device (Walker, Cane, Wheelchair, Crutches, etc.)? No PATIENT GENDER DATA: Assigned female at . status: : No status: NO. PATIENT RELEVANT IMPLANT DATA REVIEWED: Not Applicable PATIENT PRESENTS WITH AN IMPLANTABLE OR ATTACHED MANAGER UTILITIES: No RADIOLOGY DEPARTMENT: Mammography PERIPHERAL IV DATA: Not applicable SIGNED BY: Peter Jackson February 19, 2025 9:42 AM documented in this encounter [facility] 02-19-2025 Note HNO ID: [id number] Author: LISANDRA CLANCY Mammo Tech Service: ? Author Type: Senior Court Office Assistant Type: Progress Notes Filed: 02/19/2025 09:42 Note Text: Radiology Service Progress Note PATIENT NAME: Emilia Hensley DATE OF SERVICE: February 19, 2025 TIME: 9:42 AM PATIENT IDENTITY VERIFICATION COMPLETED USING TWO (2) IDENTIFIERS: Name and Date of confirmed by patient verbally. FALL SCREENING: Has the patient had 2 falls in the last year or 1 fall with injury or currently using an Ambulatory Assistive Device (Walker, Cane, Wheelchair, Crutches, etc.)? No PATIENT GENDER DATA: Assigned female at . status: : No status: NO. PATIENT RELEVANT IMPLANT DATA REVIEWED: Not Applicable PATIENT PRESENTS WITH AN IMPLANTABLE OR ATTACHED MANAGER UTILITIES: No RADIOLOGY DEPARTMENT: Mammography PERIPHERAL IV DATA: Not applicable SIGNED BY: Peter Jackson February 19, 2025 9:42 AM [facility] 02-18-2025 History of Presen t illness Narrative Radiology Service Progress Note PATIENT NAME: Emilia Hensley DATE OF SERVICE: February 18, 2025 TIME: 8:20 AM PATIENT IDENTITY VERIFICATION COMPLETED USING TWO (2) IDENTIFIERS: Name and Date of confirmed by patient verbally. FALL SCREENING: Has the patient had 2 falls in the last year or 1 fall with injury or currently using an Ambulatory Assistive Device (Walker, Cane, Wheelchair, Crutches, etc.)? No PATIENT GENDER DATA: Assigned female at . status: : No status: NO. PATIENT RELEVANT IMPLANT DATA REVIEWED: Not Applicable PATIENT PRESENTS WITH AN IMPLANTABLE OR ATTACHED MANAGER UTILITIES: No RADIOLOGY DEPARTMENT: Ultrasound PERIPHERAL IV DATA: Not applicable SIGNED BY: Kristal Chester RDMS February 18, 2025 8:20 AM documented in this encounter [facility] 02-18-2025 Note HNO ID: [id number] Author: KRISTAL CHESTER RDMS Service: ? Author Type: Senior Court Office Assistant Type: Progress Notes Filed: 02/18/2025 08:20 Note Text: Radiology Service Progress Note PATIENT NAME: Emilia Hensley DATE OF SERVICE: February 18, 2025 TIME: 8:20 AM PATIENT IDENTITY VERIFICATION COMPLETED USING TWO (2) IDENTIFIERS: Name and Date of confirmed by patient verbally. FALL SCREENING: Has the patient had 2 falls in the last year or 1 fall with injury or currently using an Ambulatory Assistive Device (Walker, Cane, Wheelchair, Crutches, etc.)? No PATIENT GENDER DATA: Assigned female at . status: : No status: NO. PATIENT RELEVANT IMPLANT DATA REVIEWED: Not Applicable PATIENT PRESENTS WITH AN IMPLANTABLE OR ATTACHED MANAGER UTILITIES: No RADIOLOGY DEPARTMENT: Ultrasound PERIPHERAL IV DATA: Not applicable SIGNED BY: Kristal Chester RDMS February 18, 2025 8:20 AM [facility] 02-17-2025 Instructions Herman Murray MD - 02/17/2025 9:38 AM EDT Please get labs done on or after 02/04/2026 prior to your next visit. documented in this encounter [facility] 02-17-2025 History of Presen t illness Narrative Chief Complaint Patient presents with: Physical HPI Emilia Hensley is a 59 year old female who presents here today for Physical. Patient with hx of RA seeing Rheum, GERD, trigeminal neuralgia, multiple thyroid nodules, IBS, and those as reviewed below. Patient continues to see Dr. Varghese for her RA and she had placed her on prn tramadol. Patient not using. Patient has been doing better since last being seen. No new issues or concerns. Past medical history, appointments, medications, allergies reviewed. Previous Medical History PAST MEDICAL HISTORY Diagnosis Date Carpal tunnel syndrome, right 02/13/2024 Closed fracture of distal end of right radius with malunion 02/13/202405/2023: Seen Cindy fitzpatrick then Dr. Null at [facility] regional pain syndrome type 1 of right upper extremity 02/13/2024 After injury to the wrist 05/2023. Seen by hand specilist Dr. Null ([facility]) COVID-19 virus infection 11/27/202111/2021 Encounter for lipid screening for cardiovascular disease 02/13/2024 Fatty liver 01/07/2023 Per US done 12/2022 per Rheum for elevated LFT's GERD without esophagitis 06/25/2018 History of COVID-19 11/27/202111/2021 IBS (irritable bowel syndrome) 09/22/2015 Multiple thyroid nodules 01/06/2019 Neck pain 03/05/2013 Obesity, Class I, BMI 30-34.9 02/15/2022 PAIN JOINT, ELBOW 05/21/2008 Rheumatoid arthritis involving multiple sites with positive rheumatoid factor (HCC) 01/23/[address] Varghese Trigeminal neuralgia 03/05/2013 Believe it was humara related. Well adult exam 11/14/2017 last done: 12/31/2018 Previous Surgical History PAST SURGICAL HISTORY Procedure Laterality Date 2D ECHO (EXEP) 03/12/2017 EF=65%, no valve issues ADENOIDECTOMY PRIMARY <AGE 14 Adenoidectomy CARDIAC CATH 03/13/2017 normal vessels COLONOSCOPY FLX DX W/COLLJ SPEC WHEN PFRMD 09/03/2013 normal, repeat due 2022 ESOPHAGOGASTRODUODENOSCOPY TRANSORAL DIAGNOSTIC 09/03/2013 chronic gastritis LAPAROSCOPY SURG CHOLECYSTECTOMY 02/15/2022 TONSILLECTOMY PRIMARY/SECONDARY <AGE 14 Tonsillectomy Family History FAMILY HISTORY Problem Relation Age of Onset Breast Cancer Mother Diabetes Mother Cancer Father not known Heart disease Sister Hypertension Sister Diabetes Sister Hyperlipidemia Sister Thyroid Sister Alzheimer's Disease No Family History Colon Cancer No Family History Prostate Cancer No Family History Ovarian cancer No Family History Coronary Artery Disease No Family History Kidney Disease No Family History Seizures No Family History Stroke No Family History Patient Allergies ALLERGIES Allergen Reactions Quinones Hives Penicillins Other: See Comments Rash and swelling Adhesive Tape-Silic* Rash Pneumovax 23 [Pneum* Other: See Comments Back headache, Arm pain for 5 days Current Medications Current Outpatient Medications on File Prior to Visit Medication Sig albuterol (PROVENTIL) 2.5 mg /3 mL (0.083 %) nebulizer solution Use 3 mL via nebulizer as directed. ADMINISTER PER WEIGHT /AGE DIRECTED predniSONE (DELTASONE) 5 mg tablet As needed, Dr. Perdomo traMADol (ULTRAM) 50 mg tablet Take 50 mg by mouth three times a day as needed. Prescribed by Dr. Perdomo leucovorin (LEUCOVORIN) 5 mg tablet Take 3 Tablet(s) Oral once a week methotrexate 2.5 mg tablet 6 TABLETS once each week. esomeprazole magnesium (NEXIUM 24HR) 22.3 mg cpDR Take 1 capsule by mouth once daily. Per Dr. Varghese FOLIC ACID ORAL Take by mouth twice daily. Not sure of mg multivits w-ca,fe,other min(ONE-A-DAY WOMENS FORMULA 27 MG-0.4 MG TAB) Take one(1) tablet daily. acetaminophen(TYLENOL EXTRA STRENGTH 500 MG TAB) as necessary for pain. use as directed No current facility-administered medications on file prior to visit. Social History Social History Tobacco Use Smoking status: Never Smokeless tobacco: Never Vaping Use Vaping status: Never Used Substance Use Topics Alcohol use: No Drug use: No Review of Symptoms REVIEW OF SYSTEMS GENERAL: No weight loss, malaise or fevers HEENT: Negative for frequent or significant headaches, No changes in vision, no nose bleeds or other nasal problems. Slight decreased hearing. NECK: Negative for lumps, goiter, pain and significant neck swelling RESPIRATORY: Negative for cough, hemoptysis, wheezing, COPD, dyspnea or shortness of breath CARDIOVASCULAR: Negative for chest pain, leg swelling, hypertension, CHF or palpitations GI: No nausea, vomiting, or diarrhea, No heartburn or reflux symptoms, and no blood : No history of dysuria, frequency or blood MUSCULOSKELETAL: right knee has been bothering her but has been off her injections for a few weeks SKIN: Negative for lesions, rash, and itching PSYCH: Negative for sleep disturbance, mood disorder and recent psychosocial stressors HEMATOLOGY/LYMPHOLOGY: Negative for prolonged bleeding, or swollen nodes. Slight increase in bruising. ENDOCRINE: Negative for cold or heat intolerance, polyuria, polydipsia and goiter NEURO: No history of headaches, syncope, paralysis, seizures or tremors EXAM: BP 128/90 Pulse 86 Resp 18 Ht 156.2 cm (5' 1.5) Wt 80.3 kg (177 lb) LMP 04/20/2019 (Approximate) BMI 32.90 kg/m BP 138/84 Pulse 86 Resp 18 Ht 156.2 cm (5' 1.5) Wt 80.3 kg (177 lb) LMP 04/20/2019 (Approximate) BMI 32.90 kg/m Last 5 Encounter BP Readings: Date: BP: 02/17/2025 138/84 12/24/2024 124/78 12/18/2024 118/92 12/05/2024 140/84 02/13/2024 118/84 Last 5 Encounter Wt Readings: Date: Wt: 02/17/2025 80.3 kg (177 lb) 12/24/2024 79.8 kg (176 lb) 12/18/2024 80.3 kg (177 lb) 12/05/2024 80.5 kg (177 lb 7.5 oz) 02/13/2024 83.5 kg (184 lb) General Appearance: Well appearing, alert, in no acute distress, well-hydrated, well nourished.. Skin: Skin color, texture, turgor normal, no suspicious rashes or lesions. Head: Normocephalic, no masses, lesions, tenderness or abnormalities. Eyes: Anicteric sclera. Pupils are equally round and reactive to light. Extraocular movements are intact. . Ears: External ears, TM's normal, canals clear. Nose/Sinuses: Nares normal, septum midline, mucosa normal, no drainage or sinus tenderness. Oropharynx: Lips, mucosa, and tongue normal, teeth and gums normal, oropharynx normal. Neck: Supple, no adenopathy; thyroid symmetric, normal size, no bruits. Lungs: Lungs clear to auscultation. No wheezing, rhonchi, rales.. Heart: RRR without murmur, gallop, or rubs. No ectopy. Abdomen: Normal abdominal exam, Abdomen soft, non-tender. Bowel sounds normal. No masses, organomegaly. Extremities: No deformities, edema, skin discoloration, Good capillary refill. . Musculoskeletal: Muscular strength intact, No joint swelling, deformity, or tenderness. Peripheral Pulses: Normal. Neurologic: Gait normal. Reflexes normal and symmetric. Sensation to light touch and crainal nerves 2-12 intact.. Health Maintenance List Depression Screening Never done Anxiety Screening Never done Pneumococcal Vaccine: 50+(2 of 2 - PPSV23) due on 07/10/2018 Cervical Cancer Screening due on 07/26/2021 Covid-19 Vaccine(3 - Pfizer risk series) due on 08/22/2021 Colorectal Cancer Screening due on 09/03/2023 Mammogram Screening due on 02/27/2024 Shingrix Vaccine(2 of 2) due on 05/13/2024 Influenza Vaccine(1) due on 07/12/2024 Diabetes Screening due on 02/18/2027 DTaP,Tdap,Td Vaccine(3 - Td or Tdap) due on 11/14/2027 Lipid Screening due on 02/18/2029 Hepatitis C Screening Completed Hepatitis B Vaccine Discontinued HIV Screening Discontinued Data reviewed A/P ASSESSMENT/PLAN: 1. Well adult exam - ICD9: V70.0, ICD10: Z00.00 (primary diagnosis) - Counseled on healthy diet and regular exercise - Discussed need and benefit for weight loss. BMI 32.90 kg/(m^2) - Follow up for annual exam in one year - will help patient get back in with [facility] Check - LIPID PANEL, NONFASTING - HEMOGLOBIN A1C 2. GERD without esophagitis - ICD9: 530.81, ICD10: K21.9 - Continue treatment with Nexium 20 mg every day Check - VITAMIN B12 - MAGNESIUM 3. Multiple thyroid nodules - ICD9: 241.1, ICD10: E04.2 Check - US THYROID/PARATHYROID - THYROID STIMULATING HORMONE 4. Rheumatoid arthritis involving multiple sites with positive rheumatoid factor (HCC) - ICD9: 714.0, ICD10: M05.79 - on meds managed per Rheum 5. Obesity, Class I, BMI 30-34.9 - ICD9: 278.00, ICD10: E66.811 - patient to work on weight loss. 6. Trigeminal neuralgia - ICD9: 350.1, ICD10: G50.0 - stable. Patient prefers to stay off Tx unless absolutely needed. 7. Fatty liver - ICD9: 571.8, ICD10: K76.0 Check - COMPREHENSIVE METABOLIC PANEL - COMPLETE BLOOD COUNT AND DIFFERENTIAL 8. Complex regional pain syndrome type 1 of right upper extremity - ICD9: 337.21, ICD10: G90.511 - stable no changes. 9. Encounter for lipid screening for cardiovascular disease - ICD9: V77.91, V81.2, ICD10: Z13.220, Z13.6 Check - LIPID PANEL, NONFASTING 10. Screening for depression - ICD9: V79.0, ICD10: Z13.31 - DEPRESSION SCREENING 11. Encounter for screening examination for other mental health and behavioral disorders - ICD9: V79.8, ICD10: Z13.39 - ANXIETY SCREENING 12. Screening for colon cancer - ICD9: V76.51, ICD10: Z12.11 - CONSULT TO GENERAL SURGERY 13. Medication management - ICD9: V58.69, ICD10: Z79.899 Check - VITAMIN B12 - MAGNESIUM 14. Encounter for screening for diabetes mellitus - ICD9: V77.1, ICD10: Z13.1 Check - HEMOGLOBIN A1C 15. Encounter for screening mammogram for breast cancer - ICD9: V76.12, ICD10: Z12.31 Check - MAKENZIE SCREENING W KALEIGH F/u in a year or sooner if issues. Check CMP, Lipid, UA, A1c, B12, Mg, CBC prior Herman Murray MD documented in this encounter [facility] 02-17-2025 Note HNO ID: [id number] Author: HERMAN MURRAY MD Service: ? Author Type: Physician Type: Progress Notes Filed: 02/17/2025 17:42 Note Text: Chief Complaint Patient presents with: Physical HPI Emilia Hensley is a 59 year old female who presents here today for Physical. Patient with hx of RA seeing Rheum, GERD, trigeminal neuralgia, multiple thyroid nodules, IBS, and those as reviewed below. Patient continues to see Dr. Varghese for her RA and she had placed her on prn tramadol. Patient not using. Patient has been doing better since last being seen. No new issues or concerns. Past medical history, appointments, medications, allergies reviewed. Previous Medical History PAST MEDICAL HISTORY Diagnosis Date Carpal tunnel syndrome, right 02/13/2024 Closed fracture of distal end of right radius with malunion 02/13/202405/2023: Seen Cindy ortho then Dr. Null at [facility] regional pain syndrome type 1 of right upper extremity 02/13/2024 After injury to the wrist 05/2023. Seen by hand specilist Dr. Null ([facility]) COVID-19 virus infection 11/27/202111/2021 Encounter for lipid screening for cardiovascular disease 02/13/2024 Fatty liver 01/07/2023 Per US done 12/2022 per Rheum for elevated LFT's GERD without esophagitis 06/25/2018 History of COVID-19 11/27/202111/2021 IBS (irritable bowel syndrome) 09/22/2015 Multiple thyroid nodules 01/06/2019 Neck pain 03/05/2013 Obesity, Class I, BMI 30-34.9 02/15/2022 PAIN JOINT, ELBOW 05/21/2008 Rheumatoid arthritis involving multiple sites with positive rheumatoid factor (HCC) 01/23/[address] Varghese Trigeminal neuralgia 03/05/2013 Believe it was humara related. Well adult exam 11/14/2017 last done: 12/31/2018 Previous Surgical History PAST SURGICAL HISTORY Procedure Laterality Date 2D ECHO (EXEP) 03/12/2017 EF=65%, no valve issues ADENOIDECTOMY PRIMARY Adenoidectomy CARDIAC CATH 03/13/2017 normal vessels COLONOSCOPY FLX DX W/COLLJ SPEC WHEN PFRMD 09/03/2013 normal, repeat due 2022 ESOPHAGOGASTRODUODENOSCOPY TRANSORAL DIAGNOSTIC 09/03/2013 chronic gastritis LAPAROSCOPY SURG CHOLECYSTECTOMY 02/15/2022 TONSILLECTOMY PRIMARY/SECONDARY Tonsillectomy Family History FAMILY HISTORY Problem Relation Age of Onset Breast Cancer Mother Diabetes Mother Cancer Father not known Heart disease Sister Hypertension Sister Diabetes Sister Hyperlipidemia Sister Thyroid Sister Alzheimer's Disease No Family History Colon Cancer No Family History Prostate Cancer No Family History Ovarian cancer No Family History Coronary Artery Disease No Family History Kidney Disease No Family History Seizures No Family History Stroke No Family History Patient Allergies ALLERGIES Allergen Reactions Quinones Hives Penicillins Other: See Comments Rash and swelling Adhesive Tape-Silic* Rash Pneumovax 23 [Pneum* Other: See Comments Back headache, Arm pain for 5 days Current Medications Current Outpatient Medications on File Prior to Visit Medication Sig albuterol (PROVENTIL) 2.5 mg /3 mL (0.083 %) nebulizer solution Use 3 mL via nebulizer as directed. ADMINISTER PER WEIGHT /AGE DIRECTED predniSONE (DELTASONE) 5 mg tablet As needed, Dr. Perdomo traMADol (ULTRAM) 50 mg tablet Take 50 mg by mouth three times a day as needed. Prescribed by Dr. Perdomo leucovorin (LEUCOVORIN) 5 mg tablet Take 3 Tablet(s) Oral once a week methotrexate 2.5 mg tablet 6 TABLETS once each week. esomeprazole magnesium (NEXIUM 24HR) 22.3 mg cpDR Take 1 capsule by mouth once daily. Per Dr. Varghese FOLIC ACID ORAL Take by mouth twice daily. Not sure of mg multivits w-ca,fe,other min(ONE-A-DAY WOMENS FORMULA 27 MG-0.4 MG TAB) Take one(1) tablet daily. acetaminophen(TYLENOL EXTRA STRENGTH 500 MG TAB) as necessary for pain. use as directed No current facility-administered medications on file prior to visit. Social History Social History Tobacco Use Smoking status: Never Smokeless tobacco: Never Vaping Use Vaping status: Never Used Substance Use Topics Alcohol use: No Drug use: No Review of Symptoms REVIEW OF SYSTEMS GENERAL: No weight loss, malaise or fevers HEENT: Negative for frequent or significant headaches, No changes in vision, no nose bleeds or other nasal problems. Slight decreased hearing. NECK: Negative for lumps, goiter, pain and significant neck swelling RESPIRATORY: Negative for cough, hemoptysis, wheezing, COPD, dyspnea or shortness of breath CARDIOVASCULAR: Negative for chest pain, leg swelling, hypertension, CHF or palpitations GI: No nausea, vomiting, or diarrhea, No heartburn or reflux symptoms, and no blood : No history of dysuria, frequency or blood MUSCULOSKELETAL: right knee has been bothering her but has been off her injections for a few weeks SKIN: Negative for lesions, rash, and itching PSYCH: Negative for sleep disturbance, mood disorder and recent psychosocial (more content not included)... [facility] 02-16-2025 Note Patient Outreach (FA MPWS) EMILIA HENSLEY ([id number]) 1965 F Date Time Provider Department 02/16/25 HERMAN MURRAY During your visit today, we recorded the following information about you: Allergies As of Date: 02/16/2025 Noted Allergy Reaction QUINONES 12/23/2023 4 - Hives PENICILLINS 12/12/2005 14 - Other: See Comments Comments: Rash and swelling ADHESIVE TAPE-SILICONES 02/26/2022 2 - Rash PNEUMOVAX 23 (PNEUMOCOCCAL 23-MATI*06/25/2018 14 - Other: See Comments Comments: Back headache, Arm pain for 5 days Date Reviewed: 12/24/2024 Reviewed by: Herman Murray MD - Fully Assessed Visit Diagnosis:Encounter for screening mammogram for breast cancer [Z12.31] Order(s):MAKENZIE SCREENING W KALEIGH [[id number]] Order #: [id number] FUTURE Prescriptions as of 03/19/2025 - estradiol (ESTRACE) 0.01 % (0.1 mg/gram) vaginal cream Use 1g vaginally. Nightly for 2 weeks. Then every other day for 2 weeks. Then 2 times per week ongoing. - tocilizumab (ACTEMRA) 162 mg/0.9 mL subcutaneous injection Inject 0.9 mL subcutaneously one time a week. Per rheum - leucovorin (LEUCOVORIN) 5 mg tablet Take 3 Tablet(s) Oral once a week - methotrexate 2.5 mg tablet 6 TABLETS once each week. - esomeprazole magnesium (NEXIUM 24HR) 22.3 mg cpDR Take 1 capsule by mouth once daily. Per Dr. Varghese - FOLIC ACID ORAL Take by mouth twice daily. Not sure of mg - multivits w-ca,fe,other min(ONE-A-DAY WOMENS FORMULA 27 MG-0.4 MG TAB) Take one(1) tablet daily. Problem List As Of Date 02/16/2025 Noted Resolved Routine general medical examination at a health*04/26/2008 11/28/2015 PAIN JOINT, ELBOW [M25.529] 05/21/2008 Rheumatoid arthritis involving multiple sites w*01/23/2013 Trigeminal neuralgia [G50.0] 03/05/2013 Neck pain [M54.2] 03/05/2013 IBS (irritable bowel syndrome) [K58.9] 09/22/2015 Visit for routine cigarette package examiner exam [Z01.419] 09/22/2015 11/28/2015 Well adult exam [Z00.00] 09/22/2015 11/28/2015 Need for lipid screening [Z13.220] 09/22/2015 11/28/2015 Screening for diabetes mellitus (DM) [Z13.1] 09/22/2015 11/28/2015 Encounter for screening for diabetes mellitus [*05/03/2017 Well adult exam [Z00.00] 11/14/2017 Encounter for screening mammogram for breast ca*06/25/2018 GERD without esophagitis [K21.9] 06/25/2018 Medication management [Z79.899] 06/25/2018 Screening for colon cancer [Z12.11] 12/31/2018 Multiple thyroid nodules [E04.2] 01/06/2019 History of COVID-19 [Z86.16] 11/27/2021 Obesity, Class I, BMI 30-34.9 [E66.811] 02/15/2022 Fatty liver [K76.0] 01/07/2023 Complex regional pain syndrome type 1 of right *02/13/2024 Closed fracture of distal end of right radius w*02/13/2024 Carpal tunnel syndrome, right [G56.01] 02/13/2024 Encounter Status:Closed by EPIC, PRODUSER on 03/19/25 [facility] 12-24-2024 History of Presen t illness Narrative Chief Complaint Patient presents with: Cough HPI Emilia Hensley is a 58 year old female who presents here today for follow up on cough. Patient seen in the [facility] ER for cough and ER follow up 12/18/2024. Patient was given nebulizer treatment in office and given Levaquin and decadron. Patient feels the cough is improving. She has had no issues with the meds she was placed on. No fevers. Cough slightly productive with just clear/white mucus. No longer colored. The cough does not keep her up at night like it had been. Her breathing has also improved. She still has the antibiotic and decadron to complete. Past medical history, appointments, medications, allergies reviewed. Previous Medical History PAST MEDICAL HISTORY Diagnosis Date Carpal tunnel syndrome, right 02/13/2024 Closed fracture of distal end of right radius with malunion 02/13/202405/2023: Seen Cindy fitzpatrick then Dr. Null at [facility] Complex regional pain syndrome type 1 of right upper extremity 02/13/2024 After injury to the wrist 05/2023. Seen by hand specilist Dr. Null ([facility]) COVID-19 virus infection 11/27/202111/2021 Encounter for lipid screening for cardiovascular disease 02/13/2024 Fatty liver 01/07/2023 Per US done 12/2022 per Rheum for elevated LFT's GERD without esophagitis 06/25/2018 History of COVID-19 11/27/202111/2021 IBS (irritable bowel syndrome) 09/22/2015 Multiple thyroid nodules 01/06/2019 Neck pain 03/05/2013 Obesity, Class I, BMI 30-34.9 02/15/2022 PAIN JOINT, ELBOW 05/21/2008 Rheumatoid arthritis involving multiple sites with positive rheumatoid factor (HCC) 01/23/[address] Varghese Trigeminal neuralgia 03/05/2013 Believe it was humara related. Well adult exam 11/14/2017 last done: 12/31/2018 Previous Surgical History PAST SURGICAL HISTORY Procedure Laterality Date 2D ECHO (EXEP) 03/12/2017 EF=65%, no valve issues ADENOIDECTOMY PRIMARY <AGE 14 Adenoidectomy CARDIAC CATH 03/13/2017 normal vessels COLONOSCOPY FLX DX W/COLLJ SPEC WHEN PFRMD 09/03/2013 normal, repeat due 2022 ESOPHAGOGASTRODUODENOSCOPY TRANSORAL DIAGNOSTIC 09/03/2013 chronic gastritis LAPAROSCOPY SURG CHOLECYSTECTOMY 02/15/2022 TONSILLECTOMY PRIMARY/SECONDARY <AGE 14 Tonsillectomy Family History FAMILY HISTORY Problem Relation Age of Onset Breast Cancer Mother Diabetes Mother Cancer Father not known Heart disease Sister Hypertension Sister Diabetes Sister Hyperlipidemia Sister Thyroid Sister Alzheimer's Disease No Family History Colon Cancer No Family History Prostate Cancer No Family History Ovarian cancer No Family History Coronary Artery Disease No Family History Kidney Disease No Family History Seizures No Family History Stroke No Family History Patient Allergies ALLERGIES Allergen Reactions Quinones Hives Penicillins Other: See Comments Rash and swelling Adhesive Tape-Silic* Rash Pneumovax 23 [Pneum* Other: See Comments Back headache, Arm pain for 5 days Current Medications Current Outpatient Medications on File Prior to Visit Medication Sig albuterol (PROVENTIL) 2.5 mg /3 mL (0.083 %) nebulizer solution Use 3 mL via nebulizer as directed. ADMINISTER PER WEIGHT /AGE DIRECTED levoFLOXacin (LEVAQUIN) 500 mg tablet Take 1 tablet by mouth once daily for 10 days. dexAMETHasone (DECADRON) 6 mg tablet Take 1 tablet by mouth once daily for 10 days. predniSONE (DELTASONE) 5 mg tablet As needed, Dr. Perdomo traMADol (ULTRAM) 50 mg tablet Take 50 mg by mouth three times a day as needed. Prescribed by Dr. Perdomo leucovorin (LEUCOVORIN) 5 mg tablet Take 3 Tablet(s) Oral once a week methotrexate 2.5 mg tablet 6 TABLETS once each week. esomeprazole magnesium (NEXIUM 24HR) 22.3 mg cpDR Take 1 capsule by mouth once daily. Per Dr. Varghese FOLIC ACID ORAL Take by mouth twice daily. Not sure of mg multivits w-ca,fe,other min(ONE-A-DAY WOMENS FORMULA 27 MG-0.4 MG TAB) Take one(1) tablet daily. acetaminophen(TYLENOL EXTRA STRENGTH 500 MG TAB) as necessary for pain. use as directed No current facility-administered medications on file prior to visit. Social History Social History Tobacco Use Smoking status: Never Smokeless tobacco: Never Vaping Use Vaping status: Never Used Substance Use Topics Alcohol use: No Drug use: No Review of Symptoms REVIEW OF SYSTEMS See HPI EXAM: BP 124/78 Pulse 78 Ht 156.2 cm (5' 1.5) Wt 79.8 kg (176 lb) LMP 04/20/2019 (Approximate) BMI 32.72 kg/m General Appearance: Well appearing, alert, in no acute distress, well-hydrated, well nourished.. Lungs: Lungs clear to auscultation. No wheezing, rhonchi, rales.. Heart: RRR without murmur, gallop, or rubs. No ectopy. Health Maintenance List Depression Screening Never done Anxiety Screening Never done Pneumococcal Vaccine: 50+(2 of 2 - PPSV23) due on 07/10/2018 Cervical Cancer Screening due on 07/26/2021 Colorectal Cancer Screening due on 09/03/2023 Shingrix Vaccine(2 of 2) due on 05/13/2024 Influenza Vaccine(1) due on 07/12/2024 Mammogram Screening due on 02/12/2025 Covid-19 Vaccine(3 - Pfizer risk series) due on 02/12/2025 Diabetes Screening due on 02/18/2027 DTaP,Tdap,Td Vaccine(3 - Td or Tdap) due on 11/14/2027 Lipid Screening due on 02/18/2029 Hepatitis C Screening Completed Hepatitis B Vaccine Discontinued HIV Screening Discontinued Data reviewed A/P ASSESSMENT/PLAN: 1. Sinobronchitis - ICD9: 473.9, 490, ICD10: J32.9, J40 (primary diagnosis) - improving. Patient to complete the Antibiotic and decadron. 2. Persistent cough - ICD9: 786.2, ICD10: R05.3 - improved. Patient to complete the decadron. F/u next routine. Herman Murray MD documented in this encounter [facility] 12-24-2024 Note HNO ID: [id number] Author: HERMAN MURRAY MD Service: ? Author Type: Physician Type: Progress Notes Filed: 12/24/2024 11:12 Note Text: Chief Complaint Patient presents with: Cough HPI Emilia Hensley is a 58 year old female who presents here today for follow up on cough. Patient seen in the [facility] ER for cough and ER follow up 12/18/2024. Patient was given nebulizer treatment in office and given Levaquin and decadron. Patient feels the cough is improving. She has had no issues with the meds she was placed on. No fevers. Cough slightly productive with just clear/white mucus. No longer colored. The cough does not keep her up at night like it had been. Her breathing has also improved. She still has the antibiotic and decadron to complete. Past medical history, appointments, medications, allergies reviewed. Previous Medical History PAST MEDICAL HISTORY Diagnosis Date Carpal tunnel syndrome, right 02/13/2024 Closed fracture of distal end of right radius with malunion 02/13/202405/2023: Seen Cindy fitzpatrick then Dr. Null at [facility] Complex regional pain syndrome type 1 of right upper extremity 02/13/2024 After injury to the wrist 05/2023. Seen by hand specilist Dr. Null ([facility]) COVID-19 virus infection 11/27/202111/2021 Encounter for lipid screening for cardiovascular disease 02/13/2024 Fatty liver 01/07/2023 Per US done 12/2022 per Rheum for elevated LFT's GERD without esophagitis 06/25/2018 History of COVID-19 11/27/202111/2021 IBS (irritable bowel syndrome) 09/22/2015 Multiple thyroid nodules 01/06/2019 Neck pain 03/05/2013 Obesity, Class I, BMI 30-34.9 02/15/2022 PAIN JOINT, ELBOW 05/21/2008 Rheumatoid arthritis involving multiple sites with positive rheumatoid factor (HCC) 01/23/[address] Varghese Trigeminal neuralgia 03/05/2013 Believe it was humara related. Well adult exam 11/14/2017 last done: 12/31/2018 Previous Surgical History PAST SURGICAL HISTORY Procedure Laterality Date 2D ECHO (EXEP) 03/12/2017 EF=65%, no valve issues ADENOIDECTOMY PRIMARY Adenoidectomy CARDIAC CATH 03/13/2017 normal vessels COLONOSCOPY FLX DX W/COLLJ SPEC WHEN PFRMD 09/03/2013 normal, repeat due 2022 ESOPHAGOGASTRODUODENOSCOPY TRANSORAL DIAGNOSTIC 09/03/2013 chronic gastritis LAPAROSCOPY SURG CHOLECYSTECTOMY 02/15/2022 TONSILLECTOMY PRIMARY/SECONDARY Tonsillectomy Family History FAMILY HISTORY Problem Relation Age of Onset Breast Cancer Mother Diabetes Mother Cancer Father not known Heart disease Sister Hypertension Sister Diabetes Sister Hyperlipidemia Sister Thyroid Sister Alzheimer's Disease No Family History Colon Cancer No Family History Prostate Cancer No Family History Ovarian cancer No Family History Coronary Artery Disease No Family History Kidney Disease No Family History Seizures No Family History Stroke No Family History Patient Allergies ALLERGIES Allergen Reactions Quinones Hives Penicillins Other: See Comments Rash and swelling Adhesive Tape-Silic* Rash Pneumovax 23 [Pneum* Other: See Comments Back headache, Arm pain for 5 days Current Medications Current Outpatient Medications on File Prior to Visit Medication Sig albuterol (PROVENTIL) 2.5 mg /3 mL (0.083 %) nebulizer solution Use 3 mL via nebulizer as directed. ADMINISTER PER WEIGHT /AGE DIRECTED levoFLOXacin (LEVAQUIN) 500 mg tablet Take 1 tablet by mouth once daily for 10 days. dexAMETHasone (DECADRON) 6 mg tablet Take 1 tablet by mouth once daily for 10 days. predniSONE (DELTASONE) 5 mg tablet As needed, Dr. Perdomo traMADol (ULTRAM) 50 mg tablet Take 50 mg by mouth three times a day as needed. Prescribed by Dr. Perdomo leucovorin (LEUCOVORIN) 5 mg tablet Take 3 Tablet(s) Oral once a week methotrexate 2.5 mg tablet 6 TABLETS once each week. esomeprazole magnesium (NEXIUM 24HR) 22.3 mg cpDR Take 1 capsule by mouth once daily. Per Dr. Varghese FOLIC ACID ORAL Take by mouth twice daily. Not sure of mg multivits w-ca,fe,other min(ONE-A-DAY WOMENS FORMULA 27 MG-0.4 MG TAB) Take one(1) tablet daily. acetaminophen(TYLENOL EXTRA STRENGTH 500 MG TAB) as necessary for pain. use as directed No current facility-administered medications on file prior to visit. Social History Social History Tobacco Use Smoking status: Never Smokeless tobacco: Never Vaping Use Vaping status: Never Used Substance Use Topics Alcohol use: No Drug use: No Review of Symptoms REVIEW OF SYSTEMS See HPI EXAM: BP 124/78 Pulse 78 Ht 156.2 cm (5' 1.5) Wt 79.8 kg (176 lb) LMP 04/20/2019 (Approximate) BMI 32.72 kg/m? General Appearance: Well appearing, alert, in no acute distress, well-hydrated, well nourished.. Lungs: Lungs clear to auscultation. No wheezing, rhonchi, rales.. Heart: RRR without murmur, gallop, or rubs. No ectopy. Health Maintenance List Depression Screening Never done Anxiety Screening Never done Pneumococcal (more content not included)... [facility] 12-18-2024 Telephone encounter Note Pt notified. Kirti Kilgore MA [facility] 12-18-2024 Miscellaneous Notes Pt notified. Kirti Kilgore MA Please let patient know their xray is normal. documented in this encounter [facility] 12-18-2024 Telephone encounter Note Please let patient know their xray is normal. [facility] Work Phone: 12-18-2024 History of Presen t illness Narrative Radiology Service Progress Note PATIENT NAME: Emilia Hensley DATE OF SERVICE: December 18, 2024 TIME: 12:51 PM PATIENT IDENTITY VERIFICATION COMPLETED USING TWO (2) IDENTIFIERS: Name and Date of confirmed by patient verbally. FALL SCREENING: Has the patient had 2 falls in the last year or 1 fall with injury or currently using an Ambulatory Assistive Device (Walker, Cane, Wheelchair, Crutches, etc.)? No PATIENT GENDER DATA: Assigned female at . status: : No status: NO. PATIENT RELEVANT IMPLANT DATA REVIEWED: Not Applicable PATIENT PRESENTS WITH AN IMPLANTABLE OR ATTACHED MANAGER UTILITIES: No RADIOLOGY DEPARTMENT: General X-ray: Exam(s) Completed: Chest X-Ray PERIPHERAL IV DATA: Not applicable SIGNED BY: Abhi Garcia December 18, 2024 12:51 PM documented in this encounter [facility] 12-18-2024 Note HNO ID: [id number] Author: OMAIRA AUGUST Tech Service: ? Author Type: Technologist Type: Progress Notes Filed: 12/18/2024 12:51 Note Text: Radiology Service Progress Note PATIENT NAME: Emilia Hensley DATE OF SERVICE: December 18, 2024 TIME: 12:51 PM PATIENT IDENTITY VERIFICATION COMPLETED USING TWO (2) IDENTIFIERS: Name and Date of confirmed by patient verbally. FALL SCREENING: Has the patient had 2 falls in the last year or 1 fall with injury or currently using an Ambulatory Assistive Device (Walker, Cane, Wheelchair, Crutches, etc.)? No PATIENT GENDER DATA: Assigned female at . status: : No status: NO. PATIENT RELEVANT IMPLANT DATA REVIEWED: Not Applicable PATIENT PRESENTS WITH AN IMPLANTABLE OR ATTACHED MANAGER UTILITIES: No RADIOLOGY DEPARTMENT: General X-ray: Exam(s) Completed: Chest X-Ray PERIPHERAL IV DATA: Not applicable SIGNED BY: Abhi Garcia December 18, 2024 12:51 PM [facility] 12-18-2024 Note HNO ID: [id number] Author: HERMAN MURRAY MD Service: ? Author Type: Physician Type: Progress Notes Filed: 12/18/2024 16:40 Note Text: Chief Complaint Patient presents with: ER F/U HPI Emilia Hensley is a 58 year old female who presents here today for ER Follow Up.. Patient was sent home on prednisone 20 mg two day for 4 days and tessalon. Prior to the development of the cough she had headache, ear pain, face was tender on the left, throat hurt, N/V and diarrhea. Denies current wheezing or chest feeling tight. Past medical history, appointments, medications, allergies reviewed. Previous Medical History PAST MEDICAL HISTORY Diagnosis Date Carpal tunnel syndrome, right 02/13/2024 Closed fracture of distal end of right radius with malunion 02/13/202405/2023: Seen Cindy ortho then Dr. Null at [facility] Complex regional pain syndrome type 1 of right upper extremity 02/13/2024 After injury to the wrist 05/2023. Seen by hand specilist Dr. Null ([facility]) COVID-19 virus infection 11/27/202111/2021 Encounter for lipid screening for cardiovascular disease 02/13/2024 Fatty liver 01/07/2023 Per US done 12/2022 per Rheum for elevated LFT's GERD without esophagitis 06/25/2018 History of COVID-19 11/27/202111/2021 IBS (irritable bowel syndrome) 09/22/2015 Multiple thyroid nodules 01/06/2019 Neck pain 03/05/2013 Obesity, Class I, BMI 30-34.9 02/15/2022 PAIN JOINT, ELBOW 05/21/2008 Rheumatoid arthritis involving multiple sites with positive rheumatoid factor (HCC) 01/23/[address] Varghese Trigeminal neuralgia 03/05/2013 Believe it was humara related. Well adult exam 11/14/2017 last done: 12/31/2018 Previous Surgical History PAST SURGICAL HISTORY Procedure Laterality Date 2D ECHO (EXEP) 03/12/2017 EF=65%, no valve issues ADENOIDECTOMY PRIMARY Adenoidectomy CARDIAC CATH 03/13/2017 normal vessels COLONOSCOPY FLX DX W/COLLJ SPEC WHEN PFRMD 09/03/2013 normal, repeat due 2022 ESOPHAGOGASTRODUODENOSCOPY TRANSORAL DIAGNOSTIC 09/03/2013 chronic gastritis LAPAROSCOPY SURG CHOLECYSTECTOMY 02/15/2022 TONSILLECTOMY PRIMARY/SECONDARY Tonsillectomy Family History FAMILY HISTORY Problem Relation Age of Onset Breast Cancer Mother Diabetes Mother Cancer Father not known Heart disease Sister Hypertension Sister Diabetes Sister Hyperlipidemia Sister Thyroid Sister Alzheimer's Disease No Family History Colon Cancer No Family History Prostate Cancer No Family History Ovarian cancer No Family History Coronary Artery Disease No Family History Kidney Disease No Family History Seizures No Family History Stroke No Family History Patient Allergies ALLERGIES Allergen Reactions Quinones Hives Penicillins Other: See Comments Rash and swelling Adhesive Tape-Silic* Rash Pneumovax 23 [Pneum* Other: See Comments Back headache, Arm pain for 5 days Current Medications Current Outpatient Medications on File Prior to Visit Medication Sig benzonatate (TESSALON PERLE) 100 mg capsule Take 1 capsule by mouth every 8 hours as needed for cough for up to 15 days. predniSONE (DELTASONE) 5 mg tablet As needed, Dr. Perdomo traMADol (ULTRAM) 50 mg tablet Take 50 mg by mouth three times a day as needed. Prescribed by Dr. Perdomo leucovorin (LEUCOVORIN) 5 mg tablet Take 3 Tablet(s) Oral once a week methotrexate 2.5 mg tablet 6 TABLETS once each week. abatacept 125 mg/mL esomeprazole magnesium (NEXIUM 24HR) 22.3 mg cpDR Take 1 capsule by mouth once daily. Per Dr. Varghese FOLIC ACID ORAL Take by mouth twice daily. Not sure of mg multivits w-ca,fe,other min(ONE-A-DAY WOMENS FORMULA 27 MG-0.4 MG TAB) Take one(1) tablet daily. acetaminophen(TYLENOL EXTRA STRENGTH 500 MG TAB) as necessary for pain. use as directed No current facility-administered medications on file prior to visit. Social History Social History Tobacco Use Smoking status: Never Smokeless tobacco: Never Vaping Use Vaping status: Never Used Substance Use Topics Alcohol use: No Drug use: No Review of Symptoms REVIEW OF SYSTEMS See HPI EXAM: BP 118/92 Pulse 79 Resp 20 Wt 80.3 kg (177 lb) LMP 04/20/2019 (Approximate) SpO2 96% BMI 32.90 kg/m? General Appearance: Well appearing, alert, in no acute distress, well-hydrated, well nourished.. Eyes: Anicteric sclera. Pupils are equally round and reactive to light. Extraocular movements are intact. . Ears: External ears, TM's normal, canals clear. Nose/Sinuses: Nares normal, septum midline, mucosa normal, no drainage. Increase pain to palpation over the left maxillary sinus compared to her baseline. Oropharynx: Lips, mucosa, and tongue normal, teeth and gums normal, oropharynx normal. Neck: Supple, no adenopathy; thyroid symmetric, normal size, no bruits. Lungs:No wheezing, rhonchi, rales. Has course breath sounds. Heart: RRR without murmur, gallop, or rubs. No ectopy. Abdomen: Normal abdominal exa (more content not included)... [facility] 12-18-2024 History of Presen t illness Narrative Images from the original note were not included. Chief Complaint Patient presents with: ER F/U HPI Emilia Hensley is a 58 year old female who presents here today for ER Follow Up.. Patient was sent home on prednisone 20 mg two day for 4 days and tessalon. Prior to the development of the cough she had headache, ear pain, face was tender on the left, throat hurt, N/V and diarrhea. Denies current wheezing or chest feeling tight. Past medical history, appointments, medications, allergies reviewed. Previous Medical History PAST MEDICAL HISTORY Diagnosis Date Carpal tunnel syndrome, right 02/13/2024 Closed fracture of distal end of right radius with malunion 02/13/202405/2023: Seen Cindy Null at [facility] Complex regional pain syndrome type 1 of right upper extremity 02/13/2024 After injury to the wrist 05/2023. Seen by hand specilist Dr. Null ([facility]) COVID-19 virus infection 11/27/202111/2021 Encounter for lipid screening for cardiovascular disease 02/13/2024 Fatty liver 01/07/2023 Per US done 12/2022 per Rheum for elevated LFT's GERD without esophagitis 06/25/2018 History of COVID-19 11/27/202111/2021 IBS (irritable bowel syndrome) 09/22/2015 Multiple thyroid nodules 01/06/2019 Neck pain 03/05/2013 Obesity, Class I, BMI 30-34.9 02/15/2022 PAIN JOINT, ELBOW 05/21/2008 Rheumatoid arthritis involving multiple sites with positive rheumatoid factor (HCC) 01/23/[address] Varghese Trigeminal neuralgia 03/05/2013 Believe it was humara related. Well adult exam 11/14/2017 last done: 12/31/2018 Previous Surgical History PAST SURGICAL HISTORY Procedure Laterality Date 2D ECHO (EXEP) 03/12/2017 EF=65%, no valve issues ADENOIDECTOMY PRIMARY <AGE 14 Adenoidectomy CARDIAC CATH 03/13/2017 normal vessels COLONOSCOPY FLX DX W/COLLJ SPEC WHEN PFRMD 09/03/2013 normal, repeat due 2022 ESOPHAGOGASTRODUODENOSCOPY TRANSORAL DIAGNOSTIC 09/03/2013 chronic gastritis LAPAROSCOPY SURG CHOLECYSTECTOMY 02/15/2022 TONSILLECTOMY PRIMARY/SECONDARY <AGE 14 Tonsillectomy Family History FAMILY HISTORY Problem Relation Age of Onset Breast Cancer Mother Diabetes Mother Cancer Father not known Heart disease Sister Hypertension Sister Diabetes Sister Hyperlipidemia Sister Thyroid Sister Alzheimer's Disease No Family History Colon Cancer No Family History Prostate Cancer No Family History Ovarian cancer No Family History Coronary Artery Disease No Family History Kidney Disease No Family History Seizures No Family History Stroke No Family History Patient Allergies ALLERGIES Allergen Reactions Quinones Hives Penicillins Other: See Comments Rash and swelling Adhesive Tape-Silic* Rash Pneumovax 23 [Pneum* Other: See Comments Back headache, Arm pain for 5 days Current Medications Current Outpatient Medications on File Prior to Visit Medication Sig benzonatate (TESSALON PERLE) 100 mg capsule Take 1 capsule by mouth every 8 hours as needed for cough for up to 15 days. predniSONE (DELTASONE) 5 mg tablet As needed, Dr. Perdomo traMADol (ULTRAM) 50 mg tablet Take 50 mg by mouth three times a day as needed. Prescribed by Dr. Perdomo leucovorin (LEUCOVORIN) 5 mg tablet Take 3 Tablet(s) Oral once a week methotrexate 2.5 mg tablet 6 TABLETS once each week. abatacept 125 mg/mL esomeprazole magnesium (NEXIUM 24HR) 22.3 mg cpDR Take 1 capsule by mouth once daily. Per Dr. Valanki FOLIC ACID ORAL Take by mouth twice daily. Not sure of mg multivits w-ca,fe,other min(ONE-A-DAY WOMENS FORMULA 27 MG-0.4 MG TAB) Take one(1) tablet daily. acetaminophen(TYLENOL EXTRA STRENGTH 500 MG TAB) as necessary for pain. use as directed No current facility-administered medications on file prior to visit. Social History Social History Tobacco Use Smoking status: Never Smokeless tobacco: Never Vaping Use Vaping status: Never Used Substance Use Topics Alcohol use: No Drug use: No Review of Symptoms REVIEW OF SYSTEMS See HPI EXAM: BP 118/92 Pulse 79 Resp 20 Wt 80.3 kg (177 lb) LMP 04/20/2019 (Approximate) SpO2 96% BMI 32.90 kg/m General Appearance: Well appearing, alert, in no acute distress, well-hydrated, well nourished.. Eyes: Anicteric sclera. Pupils are equally round and reactive to light. Extraocular movements are intact. . Ears: External ears, TM's normal, canals clear. Nose/Sinuses: Nares normal, septum midline, mucosa normal, no drainage. Increase pain to palpation over the left maxillary sinus compared to her baseline. Oropharynx: Lips, mucosa, and tongue normal, teeth and gums normal, oropharynx normal. Neck: Supple, no adenopathy; thyroid symmetric, normal size, no bruits. Lungs:No wheezing, rhonchi, rales. Has course breath sounds. Heart: RRR without murmur, gallop, or rubs. No ectopy. Abdomen: Normal abdominal exam, Abdomen soft, non-tender. Bowel sounds normal. No masses, organomegaly. Health Maintenance List Depression Screening Never done Anxiety Screening Never done Pneumococcal Vaccine: 50+(2 of 2 - PPSV23) due on 07/10/2018 Cervical Cancer Screening due on 07/26/2021 Colorectal Cancer Screening due on 09/03/2023 Shingrix Vaccine(2 of 2) due on 05/13/2024 Influenza Vaccine(1) due on 07/12/2024 Mammogram Screening due on 02/12/2025 Covid-19 Vaccine(3 - Pfizer risk series) due on 02/12/2025 Diabetes Screening due on 02/18/2027 DTaP,Tdap,Td Vaccine(3 - Td or Tdap) due on 11/14/2027 Lipid Screening due on 02/18/2029 Hepatitis C Screening Completed Hepatitis B Vaccine Discontinued HIV Screening Discontinued Data reviewed A/P ASSESSMENT/PLAN: 1. Persistent cough - ICD9: 786.2, ICD10: R05.3 (primary diagnosis) - ALBUTEROL SULFATE 2.5 MG/3 ML (0.083 %) SOLUTION FOR NEBULIZATION in the office. - NEBULIZER ADMINISTRATION SET - NEBULIZER INHALATION TREATMENT Check - XR CHEST 2V FRONTAL/LAT: read as normal. Concern for walking pneumonia. Will treat with Levaquin 500 mg a day for 10 days 2. Sinobronchitis - ICD9: 473.9, 490, ICD10: J32.9, J40 - Will begin treatment with Levaquin 500 mg a day for 10 days and decadron 6 mg a day for 10 days. - ALBUTEROL SULFATE 2.5 MG/3 ML (0.083 %) SOLUTION FOR NEBULIZATION: in the office. - NEBULIZER ADMINISTRATION SET - NEBULIZER INHALATION TREATMENT - XR CHEST 2V FRONTAL/LAT Herman Murray MD F/u next Sat/ for recheck. If she gets worse she was advised to go to the ER. Patient received albuterol aerosol treatment in office today. Pulse Ox: 96% Peak Flow: prior to aerosol: 133 post aerosol: 166.7 Pulse: 79 Respirations: 20 Patient tolerated procedure well. MD to re-check. Herman Murray MD documented in this encounter [facility] 12-14-2024 Note HNO ID: [id number] Author: ANALILIA DIAZ MA Service: ? Author Type: Parts Designer Type: Progress Notes Filed: 12/14/2024 13:29 Note Text: Scan on 12/14/2024 1:29 AM by ProviderMirela PA-C: Consultation - Emergency Medicine Analilia Diaz MA [facility] 12-14-2024 History of Presen t illness Narrative Scan on 12/14/2024 1:29 AM by Mirela Rodriguez PA-C: Consultation - Emergency Medicine Analilia Diaz MA documented in this encounter [facility] 12-05-2024 Note HNO ID: [id number] Author: FARHAN JOINER MD Service: ? Author Type: Physician Type: Progress Notes Filed: 12/05/2024 08:52 Note Text: Patient presents with: Chest Congestion: head congestion, cough x 4 days HPI: Feeling sick for 5 days. Positive symptoms: Cough, some shortness of breath, Nasal Congestion, rhinorrhea, resolved Vomiting/Diarrhea, left Earache/face pain/Sore throat, chills Negative symptoms: Fever, OTC: Cold Medicine. Last dose of methotrexate and Orencia 1 week ago. MEDICATIONS: Current Outpatient Medications Medication Sig predniSONE (DELTASONE) 5 mg tablet As needed, Dr. Perdomo traMADol (ULTRAM) 50 mg tablet Take 50 mg by mouth three times a day as needed. Prescribed by Dr. Perdomo leucovorin (LEUCOVORIN) 5 mg tablet Take 3 Tablet(s) Oral once a week methotrexate 2.5 mg tablet 6 TABLETS once each week. abatacept 125 mg/mL esomeprazole magnesium (NEXIUM 24HR) 22.3 mg cpDR Take 1 capsule by mouth once daily. Per Dr. Vraghese FOLIC ACID ORAL Take by mouth twice daily. Not sure of mg multivits w-ca,fe,other min(ONE-A-DAY WOMENS FORMULA 27 MG-0.4 MG TAB) Take one(1) tablet daily. acetaminophen(TYLENOL EXTRA STRENGTH 500 MG TAB) as necessary for pain. use as directed No current facility-administered medications for this visit. ALLERGIES: ALLERGIES Allergen Reactions Quinones Hives Penicillins Other: See Comments Rash and swelling Adhesive Tape-Silic* Rash Pneumovax 23 [Pneum* Other: See Comments Back headache, Arm pain for 5 days VITALS: BP 140/84 Pulse 112 Temp 36.6 ?C (97.9 ?F) Resp 18 Wt 80.5 kg (177 lb 7.5 oz) LMP 04/20/2019 (Approximate) SpO2 95% BMI 32.99 kg/m? PHYSICAL EXAM: GEN: mildly ill appearing, alert, no acute distress HEENT: PERRL, EOMI, conjunctiva clear Ears: canals clear. Left canal painful with light touch. TMs without erythema, bulge, or effusion Sinuses: no facial swelling or erythema Throat: moist mucous membranes, mild erythema, no exudate Neck: supple, no thyromegaly, no lymphadenopathy HEART: regular rate during my exam, regular rhythm, no murmurs LUNGS: clear to auscultation, no wheezes or crackles, no increased WOB; harsh cough ASSESSMENT/PLAN: 1. Influenza-like illness - ICD9: 487.1, ICD10: J11.1 - suspect influenza or other viral URI. She is beyond the therapeutic window for antiviral treatment and declines viral testing. Exacerbation of left trigeminal neuralgia. - Discussed supportive care treatment with rest, cold medicine, and analgesia. - BENZONATATE 100 MG CAPSULE Hold immune suppressing methotrexate and Orencia while sick. I did advise chest x-ray is available to perform today and should be performed if she has increasing chest pain, shortness of breath, or late onset fever. Farhan Joiner MD [facility] 12-01-2024 Note HNO ID: [id number] Author: BASILIO PARKS LPN Service: ? Author Type: LICENSED NURSE Type: Progress Notes Filed: 12/01/2024 12:46 Note Text: Scan on 12/01/2024 12:27 PM by Mirela Rodriguez PA-C: Hematology Scan on 12/01/2024 10:44 AM by Mirela Rodriguez PA-C: Chemistry [facility] 12-01-2024 History of Presen t illness Narrative Scan on 12/01/2024 12:27 PM by Mirela Rodriguez PA-C: Hematology Scan on 12/01/2024 10:44 AM by Mirela Rodriguez PA-C: Chemistry documented in this encounter [facility] 10-30-2024 Note HNO ID: [id number] Author: ANALILIA DIAZ MA Service: ? Author Type: Parts Designer Type: Progress Notes Filed: 10/30/2024 14:41 Note Text: Scan on 10/29/2024 11:14 AM by Mirela Rodriguez PA-C: Chemistry Analilia Diaz MA [facility] 10-30-2024 History of Presen t illness Narrative Scan on 10/29/2024 11:14 AM by Mirela Rodriguez PA-C: Chemistry Analilia Diaz MA documented in this encounter [facility] 08-04-2024 Note HNO ID: [id number] Author: BASILIO PARKS LPN Service: ? Author Type: LICENSED NURSE Type: Progress Notes Filed: 08/04/2024 11:46 Note Text: Scan on 08/04/2024 11:18 AM by Mirela Rodriguez PA-C: Chemistry Scan on 08/04/2024 10:20 AM by Mirela Rodriguez PA-C: Hematology [facility] 08-04-2024 History of Presen t illness Narrative Scan on 08/04/2024 11:18 AM by Mirela Rodriguez PA-C: Chemistry Scan on 08/04/2024 10:20 AM by Mirela Rodriguez PA-C: Hematology documented in this encounter [facility] 05-22-2024 Note HNO ID: [id number] Author: BASILIO PARKS LPN Service: ? Author Type: LICENSED NURSE Type: Progress Notes Filed: 05/22/2024 07:21 Note Text: Scan on 05/22/2024 4:34 AM by Mirela Rodriguez PA-C: Miscellaneous Lab [facility] 05-22-2024 History of Presen t illness Narrative Scan on 05/22/2024 4:34 AM by Mirela Rodriguez PA-C: Miscellaneous Lab documented in this encounter [facility] 05-12-2024 Note HNO ID: [id number] Author: BASILIO PARKS LPN Service: ? Author Type: LICENSED NURSE Type: Progress Notes Filed: 05/12/2024 14:50 Note Text: Scan on 05/12/2024 10:37 AM by ProviderMirela PA-C: Hematology Scan on 05/12/2024 11:23 AM by ProviderMirela PA-C: Chemistry [facility] 05-12-2024 History of Presen t illness Narrative Scan on 05/12/2024 10:37 AM by Mirela Rodriguez PA-C: Hematology Scan on 05/12/2024 11:23 AM by ProviderMirela PA-C: Chemistry documented in this encounter [facility] 03-18-2024 History of Presen t illness Narrative Patient presents for Shingrix vaccine. Denies any problems at this time. Tolerated injection well. Sonia Rivera LPN documented in this encounter [facility] 03-17-2024 Telephone encounter Note Patient scheduled for nurse visit 03/18/24 to receive Shingrix vaccine. Please place order at this time. Sonia Rivera LPN [facility] 03-17-2024 Miscellaneous Notes Patient scheduled for nurse visit 03/18/24 to receive Shingrix vaccine. Please place order at this time. Sonia Rivera LPN documented in this encounter [facility] 03-10-2024 History of Presen t illness Narrative Scan on 03/10/2024 10:14 AM by Mirela Rodriguez PA-C: Chemistry Julia Hinton LPN documented in this encounter [facility] 03-05-2024 Telephone encounter Note Phoned patient and given provider's message below with verbalized understanding. [facility] 03-05-2024 Miscellaneous Notes Phoned patient and given provider's message below with verbalized understanding. Her complete metabolic panel (electrolytes liver and kidney functions), lipid panel, B12, blood sugar screen, Mg and blood count were all ok. Patient calling for results of lab work that was done around 02/[address] [facility]. Please advise. documented in this encounter [facility] 03-05-2024 Telephone encounter Note Her complete metabolic panel (electrolytes liver and kidney functions), lipid panel, B12, blood sugar screen, Mg and blood count were all ok. [facility] 03-04-2024 Telephone encounter Note Patient calling for results of lab work that was done around 02/[address] [facility]. Please advise. [facility] 02-27-2024 History of Presen t illness Narrative Scan on 02/26/2024 5:18 PM by Provider, External, ROGERIOC: Consultation Julia Hinton LPN documented in this encounter [facility] 02-21-2024 History of Presen t illness Narrative Scan on 02/19/2024 10:41 AM by Provider, VEL Dietz: Chemistry Scan on 02/19/2024 11:08 AM by ProviderMirela PA-C: Chemistry Analilia Diaz MA documented in this encounter [facility] 02-13-2024 Instructions Herman Murray MD - 02/13/2024 8:43 AM EDT If you are considering getting the shingrix vaccine please check to see if covered by insurance and if you can get it at your doctors office or a pharmacy. documented in this encounter [facility] 02-13-2024 History of Presen t illness Narrative Chief Complaint Patient presents with: Physical HPI Emilia Hensley is a 58 year old female who presents here today for Physical. Patient with hx of RA seeing Rheum, GERD, trigeminal neuralgia, multiple thyroid nodules, IBS, and those as reviewed below. Patient fractured the right wrist 06/04/2023. She saw [facility] and then [facility] At her visit in October 2023 she was diagnosed with complex regional pain syndrome type 1 of right upper extremity, traumatic closed displaced fracture of the distal end of right radius with malunion, carpal tunnel right wrist. She was advised she may need to pursue permanent disability benefits. Patient has started this process. I do not see any referral to Neuro or pain management for the CRP. Patient continues to see Dr. Varghese for her RA and she has placed her on prn tramadol. Past medical history, appointments, medications, allergies reviewed. Previous Medical History PAST MEDICAL HISTORY Diagnosis Date COVID-19 virus infection 11/27/202111/2021 Current use of proton pump inhibitor 06/25/2018 Fatty liver 01/07/2023 Per US done 12/2022 per Rheum for elevated LFT's GERD without esophagitis 06/25/2018 History of COVID-19 11/27/202111/2021 IBS (irritable bowel syndrome) 09/22/2015 Multiple thyroid nodules 01/06/2019 Neck pain 03/05/2013 Obesity, Class I, BMI 30-34.9 02/15/2022 PAIN JOINT, ELBOW 05/21/2008 Rheumatoid arthritis involving multiple sites with positive rheumatoid factor (HCC) 01/23/[address] Varghese Trigeminal neuralgia 03/05/2013 Believe it was humara related. Well adult exam 11/14/2017 last done: 12/31/2018 Previous Surgical History PAST SURGICAL HISTORY Procedure Laterality Date 2D ECHO (EXEP) 03/12/2017 EF=65%, no valve issues ADENOIDECTOMY PRIMARY <AGE 14 Adenoidectomy CARDIAC CATH 03/13/2017 normal vessels COLONOSCOPY FLX DX W/COLLJ SPEC WHEN PFRMD 09/03/2013 normal, repeat due 2022 ESOPHAGOGASTRODUODENOSCOPY TRANSORAL DIAGNOSTIC 09/03/2013 chronic gastritis LAPAROSCOPY SURG CHOLECYSTECTOMY 02/15/2022 TONSILLECTOMY PRIMARY/SECONDARY <AGE 14 Tonsillectomy Family History FAMILY HISTORY Problem Relation Age of Onset Breast Cancer Mother Diabetes Mother Cancer Father not known Heart disease Sister Hypertension Sister Diabetes Sister Hyperlipidemia Sister Thyroid Sister Alzheimer's Disease No Family History Colon Cancer No Family History Prostate Cancer No Family History Ovarian cancer No Family History Coronary Artery Disease No Family History Kidney Disease No Family History Seizures No Family History Stroke No Family History Patient Allergies ALLERGIES Allergen Reactions Penicillins Other: See Comments Rash and swelling Quinones Hives Adhesive Tape-Silic* Rash Pneumovax 23 [Pneum* Other: See Comments Back headache, Arm pain for 5 days Current Medications Current Outpatient Medications on File Prior to Visit Medication Sig predniSONE (DELTASONE) 5 mg tablet As needed, Dr. Perdomo traMADol (ULTRAM) 50 mg tablet Take 50 mg by mouth three times a day as needed. Prescribed by Dr. Perdomo triamcinolone (KENALOG) 0.025 % cream Apply to affected area two times a day. leucovorin (LEUCOVORIN) 5 mg tablet Take 3 Tablet(s) Oral once a week methotrexate 2.5 mg tablet TAKE 8 TABLETS once each week. abatacept 125 mg/mL esomeprazole magnesium (NEXIUM 24HR) 22.3 mg cpDR Take 1 capsule by mouth once daily. Per Dr. Varghese FOLIC ACID ORAL Take by mouth twice daily. Not sure of mg multivits w-ca,fe,other min(ONE-A-DAY WOMENS FORMULA 27 MG-0.4 MG TAB) Take one(1) tablet daily. acetaminophen(TYLENOL EXTRA STRENGTH 500 MG TAB) as necessary for pain. use as directed No current facility-administered medications on file prior to visit. Social History Social History Tobacco Use Smoking status: Never Smokeless tobacco: Never Vaping Use Vaping Use: Never used Substance Use Topics Alcohol use: No Drug use: No Review of Symptoms REVIEW OF SYSTEMS GENERAL: No weight loss, malaise or fevers HEENT: Negative for frequent or significant headaches, No changes in hearing or vision, no nose bleeds or other nasal problems NECK: Negative for lumps, goiter, pain and significant neck swelling RESPIRATORY: Negative for cough, hemoptysis, wheezing, COPD, dyspnea or shortness of breath CARDIOVASCULAR: Negative for chest pain, leg swelling, hypertension, CHF or palpitations GI: No nausea, vomiting, or diarrhea and No heartburn or reflux symptoms. No blood : No history of dysuria, frequency or blood MUSCULOSKELETAL: see HPI, also has her chronic RA pain. SKIN: Negative for lesions, rash, and itching PSYCH: Negative for sleep disturbance, mood disorder and recent psychosocial stressors HEMATOLOGY/LYMPHOLOGY: Negative for prolonged bleeding, bruising easily or swollen nodes ENDOCRINE: Negative for cold or heat intolerance, polyuria, polydipsia and goiter. Hot flashes at times. NEURO: No history of headaches, syncope, paralysis, seizures or tremors EXAM: BP 144/78 Pulse 97 Temp 37.2 C (98.9 F) (Left Tympanic) Resp 16 Ht 156.2 cm (5' 1.5) Wt 83.5 kg (184 lb) LMP 04/20/2019 (Approximate) SpO2 97% BMI 34.20 kg/m BP 118/84 Pulse 97 Temp 37.2 C (98.9 F) (Left Tympanic) Resp 16 Ht 156.2 cm (5' 1.5) Wt 83.5 kg (184 lb) LMP 04/20/2019 (Approximate) SpO2 97% BMI 34.20 kg/m Last 5 Encounter Wt Readings: Date: Wt: 02/13/2024 83.5 kg (184 lb) 12/23/2023 81.7 kg (180 lb 3.2 oz) 08/02/2023 81.9 kg (180 lb 9.6 oz) 02/06/2023 78.5 kg (173 lb) 01/18/2023 78.9 kg (174 lb) General Appearance: Well appearing, alert, in no acute distress, well-hydrated, well nourished. and Obese. Skin: Skin color, texture, turgor normal, no suspicious rashes or lesions. Head: Normocephalic, no masses, lesions, tenderness or abnormalities. Eyes: Anicteric sclera. Pupils are equally round and reactive to light. Extraocular movements are intact. . Ears: External ears normal, canals clear. Nose/Sinuses: Nares normal, septum midline, mucosa normal, no drainage or sinus tenderness. Oropharynx: Lips, mucosa, and tongue normal, teeth and gums normal, oropharynx normal. Neck: Supple, no adenopathy; thyroid symmetric, normal size, no bruits. Lungs: Lungs clear to auscultation. No wheezing, rhonchi, rales.. Heart: RRR without murmur, gallop, or rubs. No ectopy. Abdomen: Normal abdominal exam, Abdomen soft, non-tender. Bowel sounds normal. No masses, organomegaly. Extremities: No deformities, edema, skin discoloration, clubbing or cyanosis. Good capillary refill. . Musculoskeletal: Muscular strength intact, No joint swelling, deformity, or tenderness. Peripheral Pulses: Normal. Neurologic: Gait normal. Reflexes normal and symmetric. Sensation to light touch and crainal nerves 2-12 intact. Patient with hypersensitivity pain the right upper extremity.. Health Maintenance List Shingrix Vaccine(1 of 2) Never done Covid-19 Vaccine(3 - Pfizer risk series) due on 08/22/2021 Colorectal Cancer Screening due on 09/03/2023 Depression Assessment due on 11/11/2023 Mammogram Screening due on 02/27/2024 Influenza Vaccine(Season Ended) due on 07/12/2024 Pap Testing due on 07/26/2025 HPV Testing due on 07/26/2025 Diabetes Screening due on 02/08/2026 DTaP,Tdap,Td Vaccine(3 - Td or Tdap) due on 11/14/2027 Lipid Screening due on 02/09/2028 Hepatitis C Screening Completed Hepatitis B Vaccine Discontinued HIV Screening Discontinued Pneumococcal Vaccine Discontinued Data reviewed A/P ASSESSMENT/PLAN: 1. Well adult exam - ICD9: V70.0, ICD10: Z00.00 (primary diagnosis) - Counseled on healthy diet and regular exercise - Calcium intake with supplements or by diet of 1000 mg/day for under 50, 1386-1410 mg/day for 50+ - Discussed need and benefit for weight loss. BMI 34.20 kg/(m^2) - Follow up for annual exam in one year - HGB A1C - LIPID PANEL, NONFASTING - patient requesting to hold off on her yearly mammogram and getting her colonoscopy completed due to potential out of pocket cost - advised on Shingrix vaccine. 2. GERD without esophagitis - ICD9: 530.81, ICD10: K21.9 - Continue treatment with Nexium 20 mg every day Check - VITAMIN B12 BLOOD - MAGNESIUM BLD 3. Multiple thyroid nodules - ICD9: 241.1, ICD10: E04.2 - needs US but patient wants to hold off for now. Due to potential out of pocket cost. 4. Rheumatoid arthritis involving multiple sites with positive rheumatoid factor (HCC) - ICD9: 714.0, ICD10: M05.79 Check - COMP METABOLIC PANEL 5. Complex regional pain syndrome type 1 of right upper extremity - ICD9: 337.21, ICD10: G90.511 - discussed referral to neuro or pain management. Patient will consider. - seeing ortho 6. Obesity, Class I, BMI 30-34.9 - ICD9: 278.00, ICD10: E66.9 - patient to work on weight loss. 7. Fatty liver - ICD9: 571.8, ICD10: K76.0 - await labs 8. Closed fracture of distal end of right radius with malunion, unspecified fracture morphology, subsequent encounter - ICD9: 733.81, ICD10: S52.501P - seeing ortho 9. Carpal tunnel syndrome, right - ICD9: 354.0, ICD10: G56.01 - seeing ortho 10. Encounter for screening for diabetes mellitus - ICD9: V77.1, ICD10: Z13.1 Check - HGB A1C 11. Encounter for lipid screening for cardiovascular disease - ICD9: V77.91, V81.2, ICD10: Z13.220, Z13.6 Check - LIPID PANEL, NONFASTING 12. Medication management - ICD9: V58.69, ICD10: Z79.899 Check - COMP METABOLIC PANEL - VITAMIN B12 BLOOD - MAGNESIUM BLD - CBC + DIFF F/u in a year or sooner if issues. Herman Murray MD documented in this encounter [facility] 02-03-2024 Telephone encounter Note Spoke with patient she would like to have [employer] [facility] paperwork filled out. Per Dr. Peterson she should remain out of work until 1 year from date of injury at that time she will be MMI and would require permanent restrictions [facility] 02-03-2024 Miscellaneous Notes Spoke with patient she would like to have [place] brush paperwork filled out. Per Dr. Peterson she should remain out of work until 1 year from date of injury at that time she will be MMI and would require permanent restrictions [employer] [place] paperwork received, LVM for patient to discuss if this needs filled out since she filed for SS Disability. Dr. Peterson is ok to keep patient out until 1 year from date of injury an she will be MMI at that time. Emilia is calling back stating that she spoke to [employer] and they asked for the office information and Dr. Peterson's name and she gave that to them. They should be contacting the office with information that they will need. She will call back if they reach out to her asking for something from the office. PT appreciates the help and says thank you . I called and left message for patient that she can let us know what she needs for disability or restrictions, she can call or fax forms I can help her out with whatever documentation she needs for permanent disability Original injury was a fall at home. 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 If it is a legal issue I can provide a short letter with my opinion on permanent restrictions CRPS Right wrist and Right shoulder Ad Cap, initially treated by [facility] for right distal radius fracture DOI 05/15/2023. Please advise on how to proceed for permanent restrictions as patient continues to have right UE stiffness and dysfunction. Pt called stating that her insurance wouldn't cover the test and she cannot afford to pay out of pocket for it. Spoke to PT and confirmed no more Disability [facility]CE. Spoke to patient and confirmed. Faxed order to [facility] and gave patient phone number to call to schedule. [phone] Name of caller: Emilia Contact phone number: [phone] Relationship to Patient: patient Provider: Dr Peterson Practice: Ortho Chief Complaint/Reason for Call: Pt states [place] no longer does FCE, only for Workers' Comp patients. She is asking for another recommendation. Please advise Best time of day caller can be reached: any Patient advised that office/PCP has 24-48 business hours to return their call: no documented in this encounter [facility] 02-03-2024 Telephone encounter Note [facility] [place] paperwork received, LVM for patient to discuss if this needs filled out since she filed for SS Disability. Dr. Peterson is ok to keep patient out until 1 year from date of injury an she will be MMI at that time. [facility] 01-28-2024 Telephone encounter Note Emilia is calling back stating that she spoke to [employer] and they asked for the office information and Dr. Peterson's name and she gave that to them. They should be contacting the office with information that they will need. She will call back if they reach out to her asking for something from the office. PT appreciates the help and says thank you . [facility] 01-28-2024 Miscellaneous Notes Emilia is calling back stating that she spoke to [employer] and they asked for the office information and Dr. Peterson's name and she gave that to them. They should be contacting the office with information that they will need. She will call back if they reach out to her asking for something from the office. PT appreciates the help and says thank you . I called and left message for patient that she can let us know what she needs for disability or restrictions, she can call or fax forms I can help her out with whatever documentation she needs for permanent disability Original injury was a fall at home. 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 If it is a legal issue I can provide a short letter with my opinion on permanent restrictions CRPS Right wrist and Right shoulder Ad Cap, initially treated by Cindy Fitzpatrick for right distal radius fracture DOI 05/15/2023. Please advise on how to proceed for permanent restrictions as patient continues to have right UE stiffness and dysfunction. Pt called stating that her insurance wouldn't cover the test and she cannot afford to pay out of pocket for it. Spoke to PT and confirmed no more Disability FCE. Spoke to patient and confirmed. Faxed order to [facility] and gave patient phone number to call to schedule. [phone] Name of caller: Emilia Contact phone number: [phone] Relationship to Patient: patient Provider: Dr Peterson Practice: Ortho Chief Complaint/Reason for Call: Pt states [facility] [employer] no longer does FCE, only for Workers' Comp patients. She is asking for another recommendation. Please advise Best time of day caller can be reached: any Patient advised that office/PCP has 24-48 business hours to return their call: no documented in this encounter [facility] 01-28-2024 Telephone encounter Note I called and left message for patient that she can let us know what she needs for disability or restrictions, she can call or fax forms [facility] [employer] [facility] 01-28-2024 Telephone encounter Note I can help her out with whatever documentation she needs for permanent disability [facility] [employer] [facility] Work Phone: 01-28-2024 Telephone encounter Note Original injury was a fall at home. 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 [facility] 01-28-2024 Telephone encounter Note If it is a legal issue I can provide a short letter with my opinion on permanent restrictions [facility] [employer] [facility] 01-28-2024 Telephone encounter Note CRPS Right wrist and Right shoulder Ad Cap, initially treated by [facility] for right distal radius fracture DOI 05/15/2023. Please advise on how to proceed for permanent restrictions as patient continues to have right UE stiffness and dysfunction. [facility] 01-28-2024 Telephone encounter Note Pt called stating that her insurance wouldn't cover the test and she cannot afford to pay out of pocket for it. [facility] 01-27-2024 Telephone encounter Note Spoke to PT and confirmed no more Disability FCE. Spoke to patient and confirmed. Faxed order to [facility] and gave patient phone number to call to schedule. [phone] [facility] 01-27-2024 Telephone encounter Note Name of caller: Emilia Contact phone number: [phone] Relationship to Patient: patient Provider: Dr Peterson Practice: Ortho Chief Complaint/Reason for Call: Pt states [employer] no longer does FCE, only for Workers' Comp patients. She is asking for another recommendation. Please advise Best time of day caller can be reached: any Patient advised that office/PCP has 24-48 business hours to return their call: no [facility] 01-23-2024 History of Presen t illness Narrative Images from the original note were not included. [facility] [address] [place] [address] Dept: [phone] Dept 01/23/2024 Chief Complaint Patient presents with Follow-up CRPS Right wrist and Right shoulder Ad Cap HPI Emilia returns today in follow-up regarding CRPS Right wrist and Right shoulder Ad Cap. Last appointment was approximately 3 months ago. At her last appointment she was treated with a home exercise program. She feels she is doing about the same since last visit. She does have more shoulder range of motion but continues to have constant pain in her hand and forearm. She also reports numbness is spreading up her arm. Continues to endorse right hand dysfunction as her main complaint. Has constant pain, hypersensitivity, and stiffness of the wrist and fingers. Also continues to have right shoulder stiffness. Symptom duration: less than 1 year. No results found for: HGBA1C OBJECTIVE BP 122/74 Ht 5' (1.524 m) Wt 180 lb (81.6 kg) BMI 35.15 kg/m Ortho Exam Right Shoulder ROM: RIGHT Forward Elevation AROM 130 PROM Same External Rotation AROM 45 PROM Same Internal Rotation Buttock Right Wrist ROM: Flexion 45 Extension 0 Supination 45 Pronation 80 RIGHT Hand 2-point discrimination (mm) Thumb Index Long Ring Small r u r u r u r u r u 5 5 5 5 5 5 5 5 5 5 Median Ulnar Clinical image(s): IMAGING XRay: reviewed from a previous date Right Wrist 3V healed distal radius fracture with continued osteopenia throughout the distal radius carpus and metacarpals consistent with CRPS. NCT/EMG (Copied Impression) Results dated from 08/26/23 PROCEDURE none ASSESSMENT (G90.511) Complex regional pain syndrome type 1 of right upper extremity (M75.01) Adhesive capsulitis of right shoulder (G56.01) Carpal tunnel syndrome of right wrist (S52.501P) Traumatic closed displaced fracture of distal end of right radius with malunion 1. Complex regional pain syndrome type 1 of right upper extremity 2. Adhesive capsulitis of right shoulder 3. Carpal tunnel syndrome of right wrist 4. Traumatic closed displaced fracture of distal end of right radius with malunion PLAN Emilia has permanent stiffness and dysfunction of her right upper extremity secondary to CRPS. There is not much I can offer her from a wrist and hand standpoint. I explained she could consider arthroscopic capsular release with shoulder manipulation but even that could put her at risk for worsening CRPS. For the time being she is going to continue with conservative management. I think it is warranted at this point to obtain an FCE to better define permanent functional disability moving forward. I will see her back after the FCE is complete. Immobilization: NO immobilization required at this point - FULL ROM all joints encouraged Weight Bearing: Weight Bearing As Tolerated through right sided upper extremity Rehabilitation: NO formal rehabilitation required at this point. Follow-up: Emilia will followup with me after FCE is complete. She knows to call the office with any questions or concerns in the interim. Future Imaging: NONE Ina Peterson MD Hand and Upper Extremity Surgery [facility] Department of Orthopaedics and Sports Medicine 01/23/2024 at 10:16 AM (Please note that portions of this note may have been completed with a voice recognition program. Efforts were made to edit the dictations but occasionally words are mis-transcribed.) documented in this encounter [facility] 12-23-2023 History of Presen t illness Narrative Chief Complaint Patient presents with: Rash HPI Emilia Hensley is a 57 year old female who presents here today for rash. Pt c/o rash that started under the right arm but has now started under the left arm as well. States that the rash looks like pimples. Denies any changes to deodorant, no medication changes, foods or soaps changed. Rash started out with a few little red spots on the right wrist and hand but she was told by ortho that discoloration would be normal due to her broken wrist so she didn't think anything of it. Same spots started under the right armpit a few days ago but has moved around the right side of breast but today when she woke up she had the rash under the left armpit. Has some soreness to the left underarm and some itching. She has been putting some powder on the area to help with the itching. Past medical history, appointments, medications, allergies reviewed. Previous Medical History PAST MEDICAL HISTORY Diagnosis Date COVID-19 virus infection 11/27/202111/2021 Current use of proton pump inhibitor 06/25/2018 Fatty liver 01/07/2023 Per US done 12/2022 per Rheum for elevated LFT's GERD without esophagitis 06/25/2018 History of COVID-19 11/27/202111/2021 IBS (irritable bowel syndrome) 09/22/2015 Multiple thyroid nodules 01/06/2019 Neck pain 03/05/2013 Obesity, Class I, BMI 30-34.9 02/15/2022 PAIN JOINT, ELBOW 05/21/2008 Rheumatoid arthritis involving multiple sites with positive rheumatoid factor (HCC) 01/23/[address] Varghese Trigeminal neuralgia 03/05/2013 Believe it was humara related. Well adult exam 11/14/2017 last done: 12/31/2018 Previous Surgical History PAST SURGICAL HISTORY Procedure Laterality Date 2D ECHO (EXEP) 03/12/2017 EF=65%, no valve issues ADENOIDECTOMY PRIMARY <AGE 14 Adenoidectomy CARDIAC CATH 03/13/2017 normal vessels COLONOSCOPY FLX DX W/COLLJ SPEC WHEN PFRMD 09/03/2013 normal, repeat due 2022 ESOPHAGOGASTRODUODENOSCOPY TRANSORAL DIAGNOSTIC 09/03/2013 chronic gastritis LAPAROSCOPY SURG CHOLECYSTECTOMY 02/15/2022 TONSILLECTOMY PRIMARY/SECONDARY <AGE 14 Tonsillectomy Family History FAMILY HISTORY Problem Relation Age of Onset Breast Cancer Mother Diabetes Mother Cancer Father not known Heart disease Sister Hypertension Sister Diabetes Sister Hyperlipidemia Sister Thyroid Sister Alzheimer's Disease No Family History Colon Cancer No Family History Prostate Cancer No Family History Ovarian cancer No Family History Coronary Artery Disease No Family History Kidney Disease No Family History Seizures No Family History Stroke No Family History Patient Allergies ALLERGIES Allergen Reactions Berries And Johanna* Rash, Swelling Penicillins Other: See Comments Rash and swelling Adhesive Tape-Silic* Rash Pneumovax 23 [Pneum* Other: See Comments Back headache, Arm pain for 5 days Current Medications Current Outpatient Medications on File Prior to Visit Medication Sig leucovorin (LEUCOVORIN) 5 mg tablet Take 3 Tablet(s) Oral once a week methotrexate 2.5 mg tablet TAKE 8 TABLETS once each week. abatacept 125 mg/mL esomeprazole magnesium (NEXIUM 24HR) 22.3 mg cpDR Take 1 capsule by mouth once daily. Per Dr. Varghese FOLIC ACID ORAL Take by mouth twice daily. Not sure of mg multivits w-ca,fe,other min(ONE-A-DAY WOMENS FORMULA 27 MG-0.4 MG TAB) Take one(1) tablet daily. acetaminophen(TYLENOL EXTRA STRENGTH 500 MG TAB) as necessary for pain. use as directed No current facility-administered medications on file prior to visit. Social History Social History Tobacco Use Smoking status: Never Smokeless tobacco: Never Vaping Use Vaping Use: Never used Substance Use Topics Alcohol use: No Drug use: No EXAM: BP 128/80 Pulse 80 Resp 16 Wt 81.7 kg (180 lb 3.2 oz) LMP 04/20/2019 (Approximate) BMI 34.05 kg/m General Appearance: Well appearing, alert, in no acute distress, well-hydrated, well nourished. and Overweight. Skin: erythema under the arm pits L is worse than R, pimple like spots, minimal tenderness on palpation to skin. No drainage or swelling. Health Maintenance List Influenza Vaccine(1) due on 07/12/2023 Colorectal Cancer Screening due on 09/03/2023 Depression Assessment due on 11/11/2023 Mammogram Screening due on 02/27/2024 Shingrix Vaccine(1 of 2) due on 02/07/2024 Covid-19 Vaccine(3 - Pfizer risk series) due on 02/07/2024 Pap Testing due on 07/26/2025 HPV Testing due on 07/26/2025 Diabetes Screening due on 02/08/2026 DTaP,Tdap,Td Vaccine(3 - Td or Tdap) due on 11/14/2027 Lipid Screening due on 02/09/2028 Hepatitis C Screening Completed Hepatitis B Vaccine Discontinued HIV Screening Discontinued Pneumococcal Vaccine Discontinued Data reviewed None ASSESSMENT/PLAN: 1. Allergic dermatitis - ICD9: 692.9, ICD10: L23.9 - Topical steriod tx with Rx for steriod cream/ointment, Kenalog cream BID - discussed skin care of rash - follow up if symptoms persist or worsen. Follow up as needed or if not improving. I agree with the Chief Complaint, ROS, and Past Histories independently gathered by the clinical customer support representative and the remaining scribed note accurately describes my personal service to the patient. Medical Decision Making: Problems: Low: Acute, uncomplicated illness or injury Risk: Moderate: Drug management Medical Decision Making Level: 3 - Low Gage Ann MD The documentation for this note was completed by Kirti Kilgore Ma acting as scribe for Gage Ann MD. December 23, 2023 6:41 PM. Kirti Kilgore Ma documented in this encounter [facility] 10-24-2023 History of Presen t illness Narrative Images from the original note were not included. [facility] [address] [place] [address] Dept: [phone] Dept 10/24/2023 Chief Complaint Patient presents with Follow-up Right wrist CRPS and Right shoulder pain HPI Emilia returns today in follow-up regarding Right sided CRPS. Last appointment was approximately 11 weeks ago. She is seeing no improvements and was discharged from therapy because she was making no improvements. Hx of Right distal radius Fx on 05/15/23 treated in cast for 6 weeks At her last appointment she was treated with EMG and therapy States she has made modest improvements with regard to her shoulder range of motion. Does not feel she is made any improvements with regards to her wrist and finger range of motion. She has been compliant with her hand therapy and is at the point now where she can no longer afford to keep attending her hand therapy sessions. States that her hand therapist feels that she is reached a plateau and has not been benefiting from continued therapy. Unfortunately, the patient continues to experience significant sensitivity to the right hand with occasional numbness and tingling into the thumb and index. She has been working range of motion at home without success. She is emotional about the fact that her employer may need to fire her due to her absence of 6 months now and her inability to use her right hand. Symptom duration: less than 1 year. No results found for: HGBA1C OBJECTIVE BP 128/80 Ht 5' (1.524 m) Wt 180 lb (81.6 kg) BMI 35.15 kg/m Ortho Exam See clinical images below. Skin of the right hand and wrist continues to appear shiny consistent with CRPS. Scant residual global edema of the right hand mildly improved since last visit. Dysesthesias and hyper sensitivity diffusely to touch throughout the entire to the wrist and hand. Significant stiffness of the fingers with MCP flexion of only 45 degrees, PIP 10 degrees, and DIP 10 degrees -both actively and passively. Hand is well-perfused. Intact sensation throughout with hyperesthesias. Shoulder ROM: RIGHT Forward Elevation AROM 130 PROM Same External Rotation AROM 45 PROM Same Internal Rotation Hip Wrist ROM: Flexion 45 Extension 0 Supination 30 Pronation 80 Clinical image(s): IMAGING XRay: Right Wrist 3V healed distal radius fracture with continued osteopenia throughout the distal radius carpus and metacarpals consistent with CRPS. NCT/EMG (Copied Impression) Results dated from 08/26/23 PROCEDURE None ASSESSMENT (G90.511) Complex regional pain syndrome type 1 of right upper extremity (S52.501P) Traumatic closed displaced fracture of distal end of right radius with malunion (M75.01) Adhesive capsulitis of right shoulder (G56.01) Carpal tunnel syndrome of right wrist 1. Complex regional pain syndrome type 1 of right upper extremity 2. Traumatic closed displaced fracture of distal end of right radius with malunion 3. Adhesive capsulitis of right shoulder 4. Carpal tunnel syndrome of right wrist PLAN I independently interpreted her EMG. She has mild carpal tunnel syndrome. I offered her an injection but she declined as she is deathly afraid of needles. Unfortunately, she has a severe case of CRPS affecting both her shoulder as well as her wrist and hand. Shoulder has demonstrated mild improvement with both active and passive range of motion although it is still not full. The hand and wrist unfortunately continues to be significantly stiff with limited active and passive range of motion, hypersensitivity, diffuse swelling, and dysesthesias consistent with persistent CRPS. I was honest with her today that she we will certainly be left with functional disability in her right hand secondary to her limited range of motion. She has not been 6 months out of work and may lose her job. I told her I fully support her in obtaining permanent disability benefits if she elects to go that route. Unfortunately, she has been very compliant with her hand therapy but has had a very poor functional outcome secondary to her advanced CRPS. She understands that her hand symptoms may improve with time but I would not expect complete recovery. She is going to explore her options with regards to disability and contact the office if we can be of any assistance. Otherwise I will see her back in 3 months time. Immobilization: NO immobilization required at this point - FULL ROM all joints encouraged Weight Bearing: Weight Bearing As Tolerated through right sided upper extremity Rehabilitation: OT/PT Rx given. Follow-up: Emilia will followup with me in 3 months. She knows to call the office with any questions or concerns in the interim. Future Imaging: NONE Ina Peterson MD Hand and Upper Extremity Surgery [facility] Department of Orthopaedics and Sports Medicine 10/24/2023 at 9:04 AM (Please note that portions of this note may have been completed with a voice recognition program. Efforts were made to edit the dictations but occasionally words are mis-transcribed.) documented in this encounter [facility] 09-04-2023 History of Presen t illness Narrative Scan on 09/03/2023 4:38 PM by Provider, VEL Dietz: Miscellaneous Lab documented in this encounter [facility] 08-26-2023 Miscellaneous Notes Results from EMG performed on 08/26/[address] Kaycee Peterson at fax number [phone] on 08/26/23. Fax confirmation received. documented in this encounter [facility] 08-26-2023 History of Presen t illness Narrative UNIVERSAL PROTOCOL / SAFETY CHECKLIST Procedure to be Performed: EMG Sign In: A Moment of CARE was completed. Personnel directly involved with the procedure wore the appropriate PPE (Personal Protective Equipment). Patient/Surrogate Stated/Verified: PATIENT VERIFIED(optional for EMERGENT procedures): Patient name, Date of , Relevant allergies, and The intended procedure Time Out Communication: Intended patient and procedure match the source documents. Correct side/site marked and visible. Sign Out: SIGN OUT (optional for EMERGENT procedures): Post-procedure follow-up management communicated and Plan of Care Visit completed when applicable. MOHIT Murphy. Cory Szymanski MD documented in this encounter [facility] 08-08-2023 History of Presen t illness Narrative Images from the original note were not included. [facility] [address] [place] [address] Dept: [phone] Dept 08/08/2023 Chief Complaint Patient presents with New Patient DOI 05/15/23 Right distal radius fracture, closed tx, referred from [facility] for persistent numbness and swelling, Hx of RA in the finger IP joints HISTORY Emilia Hensley is a 57 y.o. right handed female that presents for evaluation and treatment after sustaining an injury to her RIGHT wrist that occurred 12 weeks ago. Emilia is currently employed as [employer] . Mechanism of injury - FOOSH at home. Treatment up to this point has consisted of cast immobilization for 6 weeks, OT for the last 5 weeks, Rx for Tramadol. Following cast removal she was noted to have significant swelling of the hand and wrist. She was started in hand therapy for questionable CRPS. Since her injury she is also developed atraumatic shoulder stiffness. No results found for: HGBA1C OBJECTIVE BP 124/82 Ht 5' (1.524 m) Wt 180 lb (81.6 kg) BMI 35.15 kg/m Ortho Exam Moderate global edema surrounding the entirety of the wrist, hand, and digits. Significant stiffness of the finger joints per clinical images below. Skin shiny in appearance consistent with CRPS. RIGHT Hand 2-point discrimination (mm) Thumb Index Long Ring Small r u r u r u r u r u 5 5 5 5 5 5 5 5 5 5 Median Ulnar Shoulder ROM: RIGHT Forward Elevation AROM 90 PROM 90 External Rotation AROM 15 PROM 15 Internal Rotation Hip Clinical image(s): Wrist ROM: Flexion 20 Extension 0 Supination 10 Pronation 80 IMAGING Plain films were reviewed by myself from a previous date. 3V WRIST (AP, Oblique, and LAT) show diffuse osteopenia. Healed distal radius. PROCEDURE None ASSESSMENT (G90.511) Complex regional pain syndrome type 1 of right upper extremity (S52.501P) Traumatic closed displaced fracture of distal end of right radius with malunion (M75.01) Adhesive capsulitis of right shoulder 1. Complex regional pain syndrome type 1 of right upper extremity External referral to Occupational Therapy 2. Traumatic closed displaced fracture of distal end of right radius with malunion External referral to Occupational Therapy 3. Adhesive capsulitis of right shoulder External referral to Physical Therapy PLAN I discussed with Emilia the natural history, expected outcome, and risks/benefits of both operative and nonoperative management of her particular diagnosis relative to her age, activity level, most recent imaging, and physical exam. Emilia unfortunately has CRPS following and nonoperatively treated distal radius fracture. She has significant stiffness of the shoulder, forearm, wrist, and hand. She has a scheduled EMG in the next couple weeks. She knows to send us that report in the event that she has peripheral nerve entrapment that may be contributing to her CRPS. Unfortunately, she understands that it can take upwards of a full year to reach max improvement and she may be left with permanent functional disability in the right upper extremity secondary to her CRPS. She is work aggressive hand and physical therapy to reduce swelling and improve motion. She will follow-up in 3 months time. Follow-up: Emilia will followup with me in 3 months. She knows to call the office with any questions or concerns in the interim. Future Imaging: RIGHT Wrist 3V Ina Peterson MD Hand and Upper Extremity Surgery [facility] Department of Orthopaedics and Sports Medicine 08/08/2023 at 10:48 AM (Please note that portions of this note may have been completed with a voice recognition program. Efforts were made to edit the dictations but occasionally words are mis-transcribed.) documented in this encounter [facility] 08-02-2023 History of Presen t illness Narrative Radiology Service Progress Note PATIENT NAME: Emilia Hensley DATE OF SERVICE: August 02, 2023 TIME: 11:13 AM PATIENT IDENTITY VERIFICATION COMPLETED USING TWO (2) IDENTIFIERS: Name and Date of confirmed by patient verbally. FALL SCREENING: Has the patient had 2 falls in the last year or 1 fall with injury or currently using an Ambulatory Assistive Device (Walker, Cane, Wheelchair, Crutches, etc.)? No PATIENT GENDER DATA: Female. status: : No status: NO. PATIENT RELEVANT IMPLANT DATA REVIEWED: Yes RADIOLOGY DEPARTMENT: General X-ray: Exam(s) Completed: Lower Extremity X-Ray(s): Ankle, Right and Foot, Right PERIPHERAL IV DATA: Not applicable SIGNED BY: RT Axel(R) August 02, 2023 11:13 AM documented in this encounter [facility] 08-02-2023 History of Presen t illness Narrative Subjective HPI Nontoxic-appearing female presents urgent care chief complaint right ankle and foot pain. Duration of symptoms today. Associated symptoms right ankle and foot pain and swelling. Is having difficulty time bearing weight due to discomfort. States earlier this morning she was walking her dog when she slipped and fell into a hole. She inverted her ankle. Did fall to the ground scraping her left knee. No other concerns. No other pain. Denies any head neck or back pain. No numbness no tingling. No decrease sensation. Denies history of fractures or surgeries to foot or ankle in the past. Past medical history prescription medication use allergies reviewed. .Patient presents with: Fall: Hurt right ankle with fall this am PAST MEDICAL HISTORY Diagnosis Date COVID-19 virus infection 11/27/202111/2021 Current use of proton pump inhibitor 06/25/2018 Fatty liver 01/07/2023 Per US done 12/2022 per Rheum for elevated LFT's GERD without esophagitis 06/25/2018 History of COVID-19 11/27/202111/2021 IBS (irritable bowel syndrome) 09/22/2015 Multiple thyroid nodules 01/06/2019 Neck pain 03/05/2013 Obesity, Class I, BMI 30-34.9 02/15/2022 PAIN JOINT, ELBOW 05/21/2008 Rheumatoid arthritis involving multiple sites with positive rheumatoid factor (HCC) 01/23/[address] Varghese Trigeminal neuralgia 03/05/2013 Believe it was humara related. Well adult exam 11/14/2017 last done: 12/31/2018 PAST SURGICAL HISTORY Procedure Laterality Date 2D ECHO (EXEP) 03/12/2017 EF=65%, no valve issues ADENOIDECTOMY PRIMARY <AGE 14 Adenoidectomy CARDIAC CATH 03/13/2017 normal vessels COLONOSCOPY FLX DX W/COLLJ SPEC WHEN PFRMD 09/03/2013 normal, repeat due 2022 ESOPHAGOGASTRODUODENOSCOPY TRANSORAL DIAGNOSTIC 09/03/2013 chronic gastritis LAPAROSCOPY SURG CHOLECYSTECTOMY 02/15/2022 TONSILLECTOMY PRIMARY/SECONDARY <AGE 14 Tonsillectomy ALLERGIES Berries And Cherries [Other], Penicillins, Adhesive Tape-Silicones, and Pneumovax 23 [Pneumococcal 23-Mati Ps Vaccine] MEDICATIONS leucovorin (LEUCOVORIN) 5 mg tablet Take 3 Tablet(s) Oral once a week methotrexate 2.5 mg tablet TAKE 8 TABLETS once each week. abatacept 125 mg/mL esomeprazole magnesium (NEXIUM 24HR) 22.3 mg cpDR Take 1 capsule by mouth once daily. Per Dr. Varghese FOLIC ACID ORAL Take by mouth twice daily. Not sure of mg multivits w-ca,fe,other min(ONE-A-DAY WOMENS FORMULA 27 MG-0.4 MG TAB) Take one(1) tablet daily. acetaminophen(TYLENOL EXTRA STRENGTH 500 MG TAB) as necessary for pain. use as directed FAMILY HISTORY Problem Relation Age of Onset Breast Cancer Mother Diabetes Mother Cancer Father not known Heart disease Sister Hypertension Sister Diabetes Sister Hyperlipidemia Sister Thyroid Sister Alzheimer's Disease No Family History Colon Cancer No Family History Prostate Cancer No Family History Ovarian cancer No Family History Coronary Artery Disease No Family History Kidney Disease No Family History Seizures No Family History Stroke No Family History Social History Tobacco Use Smoking status: Never Smokeless tobacco: Never Vaping Use Vaping Use: Never used Substance Use Topics Alcohol use: No Drug use: No BP 135/81 Pulse 81 Temp 36.5 C (97.7 F) Resp 20 Wt 81.9 kg (180 lb 9.6 oz) LMP 04/20/2019 (Approximate) SpO2 99% BMI 34.12 kg/m Review of Systems Constitutional: Negative for chills, fever and malaise/fatigue. HENT: Negative for congestion, ear discharge, ear pain, sinus pain and sore throat. Eyes: Negative for blurred vision, pain, discharge and redness. Respiratory: Negative for cough, hemoptysis, sputum production, shortness of breath, wheezing and stridor. Cardiovascular: Negative for chest pain. Gastrointestinal: Negative for abdominal pain, diarrhea, nausea and vomiting. Musculoskeletal: Positive for falls and joint pain. Negative for back pain, myalgias and neck pain. Skin: Negative for itching and rash. Neurological: Negative for dizziness and headaches. Objective Physical Exam Constitutional: General: She is not in acute distress. Appearance: She is not toxic-appearing. HENT: Head: Normocephalic. Nose: Nose normal. Eyes: Pupils: Pupils are equal, round, and reactive to light. Cardiovascular: Rate and Rhythm: Normal rate. Pulmonary: Effort: Pulmonary effort is normal. No respiratory distress. Musculoskeletal: Cervical back: Normal range of motion. Right knee: No bony tenderness. Normal range of motion. No tenderness. Left knee: No bony tenderness. Normal range of motion. No tenderness. Right lower leg: No deformity, tenderness or bony tenderness. Left lower leg: No deformity, tenderness or bony tenderness. Right ankle: Swelling and ecchymosis present. Tenderness present over the lateral malleolus. Decreased range of motion. Right Achilles Tendon: No tenderness. Left ankle: No swelling or ecchymosis. No tenderness. Normal range of motion. Right foot: Decreased range of motion. Normal capillary refill. Swelling, tenderness and bony tenderness present. Normal pulse. Left foot: Normal range of motion and normal capillary refill. No swelling, deformity, tenderness or bony tenderness. Normal pulse. Comments: Skin Abrasion left patellar region. No bleeding Ecchymosis edema noted to the lateral malleolus. Edema ecchymosis extends to midfoot. Neurovascular intact. Skin: General: Skin is warm and dry. Neurological: General: No focal deficit present. Mental Status: She is alert. ASSESSMENT/PLAN: 1. Acute right ankle pain - ICD9: 719.47, 338.19, ICD10: M25.571 (primary diagnosis) - XR FOOT GENERAL 3V AP/LAT/OBL RIGHT - XR ANKLE GENERAL 3V AP/LAT/OBL RIGHT 2. Foot pain, right - ICD9: 729.5, ICD10: M79.671 - XR FOOT GENERAL 3V AP/LAT/OBL RIGHT - XR ANKLE GENERAL 3V AP/LAT/OBL RIGHT IMPRESSION: No acute osseous abnormality No abnormal findings noted. Treat as ankle sprain. James wrap applied Patient was educated on supportive therapies. Patient will follow up with primary care provider 7 to 10 days symptoms are not improving. Patient was instructed to immediately proceed to emergency room for any new, worsening, or symptoms lasting longer than anticipated. The patient's clinical presentation is otherwise unremarkable at this time. Based on exam and clinical finding, the patient is stable for discharge. Plan of care was discussed with patient. Patient verbalizes understanding and agrees to plan of care. This note was generated using Eko software. It may contain errors in wording, punctuation, or spelling. Herman Rubio APRN.KONSTANTIN documented in this encounter [facility] 07-30-2023 Note Shanta calling to [employer] we had received a referral from their office for this patient. Referral was received today. Pt initial injury May 15. Please advise. [facility] 07-29-2023 Miscellaneous Notes Pt notified. She verbalized understanding. Leoncio Montes LPN Advise patient it looks like Dr. Peterson is an orthopedic surgeon who also specializes in nerve compression issues. I would recommend she get the nerve testing done and make the appt with Dr. Null. She should then discuss her concerns with him while she is there at her appt. Patient calls to ask provider opinion. Patient has had pain/numbness to right hand/wrist/arm/shoulder since having cast applied in May. Patient reports she has been under the care of Terese Ortiz with [facility] and has questioned if the case were on too tight when she had it as her mobility in the arm isn't coming back. She can't lift the arm up or to the side. Currently in therapy at [facility]. Patient reports she was told it is d/t arthritis and referred to Dr. Donnelly (orthopaedic surgeon) in [place] with orders for nerve testing. She is concerned that he won't look at the arm/shoulder. Patient asking if she should get an appointment with provider or a referral to orthopaedic within [facility]. Lorena eMlissa RN documented in this encounter [facility] 02-27-2023 Miscellaneous Notes Left message of same on pt's vm. Basilio Parks LPN ----- Message from Eri Loza PA-C sent at 02/27/2023 2:39 PM EDT ----- Normal mammogram. Repeat in 1 year. documented in this encounter [facility] 02-27-2023 Miscellaneous Notes February 28, 2023 PID: [id number] Emilia Hensley [address] [place], [place] [id number] Dear Ms. Hensley, We are pleased to inform you that the results of your recent breast imaging exam on 02/26/2023 are normal. Early detection of cancer is very important. We also understand recommendations regarding breast cancer screening are controversial. Please discuss with your primary care provider which strategy is best for you and whether a mammogram is right for you. Your imaging studies and report will be kept on file at [facility] as part of your permanent medical record and are available for your continuing care. Thank you for allowing us to help in meeting your health care needs. Sincerely, Dr. Loera Interpreting Radiologist (Normal over 40) documented in this encounter [facility] 02-26-2023 History of Presen t illness Narrative Radiology Service Progress Note PATIENT NAME: Emilia Hensley DATE OF SERVICE: February 26, 2023 TIME: 4:10 PM PATIENT IDENTITY VERIFICATION COMPLETED USING TWO (2) IDENTIFIERS: Name and Date of confirmed by patient verbally. FALL SCREENING: Has the patient had 2 falls in the last year or 1 fall with injury or currently using an Ambulatory Assistive Device (Walker, Cane, Wheelchair, Crutches, etc.)? No PATIENT GENDER DATA: Female. status: : No status: NO. PATIENT RELEVANT IMPLANT DATA REVIEWED: Not Applicable RADIOLOGY DEPARTMENT: Mammography PERIPHERAL IV DATA: Not applicable SIGNED BY: RT Guillermo(R) February 26, 2023 4:10 PM documented in this encounter [facility] 02-13-2023 Miscellaneous Notes Spoke with pt and information listed below given. Pt verbalizes understanding. Shweta Ackerman LPN Left message for patient to contact office. Analilia Diaz MA Let patient know blood sugar lab, Mg B12, liver functions and lipid panel were all ok. documented in this encounter [facility] 02-06-2023 History of Presen t illness Narrative Chief Complaint Patient presents with: Physical HPI Emilia Hensley is a 57 year old female who presents here today for Physical. 02/06/2023 - physical Patient with hx of RA seeing Rheum, GERD, trigeminal neuralgia, multiple thyroid nodules, IBS, and those as reviewed below. Patient has been doing ok. No new issues or concerns. 01/18/2023 - Results of Liver US. Patient recently had labs done per Dr. Varghese and her LFT's were elevated and then had a US of the liver that showed some abnormalities. 1. Fatty liver - ICD9: 571.8, ICD10: K76.0 (primary diagnosis) - discussed goals of weigh loss, decreased fat in diet. Discussed the benefits of Pelham oil and coffee. Past medical history, appointments, medications, allergies reviewed. Previous Medical History PAST MEDICAL HISTORY Diagnosis Date COVID-19 virus infection 11/27/202111/2021 Current use of proton pump inhibitor 06/25/2018 Fatty liver 01/07/2023 Per US done 12/2022 per Rheum for elevated LFT's GERD without esophagitis 06/25/2018 IBS (irritable bowel syndrome) 09/22/2015 Multiple thyroid nodules 01/06/2019 Neck pain 03/05/2013 PAIN JOINT, ELBOW 05/21/2008 Rheumatoid arthritis involving multiple sites with positive rheumatoid factor (HCC) 01/23/[address] Varghese Trigeminal neuralgia 03/05/2013 Believe it was humara related. Well adult exam 11/14/2017 last done: 12/31/2018 Previous Surgical History PAST SURGICAL HISTORY Procedure Laterality Date 2D ECHO (EXEP) 03/12/2017 EF=65%, no valve issues ADENOIDECTOMY PRIMARY <AGE 14 Adenoidectomy CARDIAC CATH 03/13/2017 normal vessels COLONOSCOPY FLX DX W/COLLJ SPEC WHEN PFRMD 09/03/2013 normal, repeat due 2022 ESOPHAGOGASTRODUODENOSCOPY TRANSORAL DIAGNOSTIC 09/03/2013 chronic gastritis LAPAROSCOPY SURG CHOLECYSTECTOMY 02/15/2022 TONSILLECTOMY PRIMARY/SECONDARY <AGE 14 Tonsillectomy Family History FAMILY HISTORY Problem Relation Age of Onset Breast Cancer Mother Diabetes Mother Cancer Father not known Heart disease Sister Hypertension Sister Diabetes Sister Hyperlipidemia Sister Thyroid Sister Alzheimer's Disease No Family History Colon Cancer No Family History Prostate Cancer No Family History Ovarian cancer No Family History Coronary Artery Disease No Family History Kidney Disease No Family History Seizures No Family History Stroke No Family History Patient Allergies ALLERGIES Allergen Reactions Berries And Johanna* Rash, Swelling Penicillins Other: See Comments Rash and swelling Adhesive Tape-Silic* Rash Pneumovax 23 [Pneum* Other: See Comments Back headache, Arm pain for 5 days Current Medications Current Outpatient Medications on File Prior to Visit Medication Sig leucovorin (LEUCOVORIN) 5 mg tablet Take 3 Tablet(s) Oral once a week methotrexate 2.5 mg tablet TAKE 8 TABLETS once each week. abatacept 125 mg/mL esomeprazole magnesium (NEXIUM 24HR) 22.3 mg cpDR Take 1 capsule by mouth once daily. Per Dr. Varghese FOLIC ACID ORAL Take by mouth twice daily. Not sure of mg multivits w-ca,fe,other min(ONE-A-DAY WOMENS FORMULA 27 MG-0.4 MG TAB) Take one(1) tablet daily. acetaminophen(TYLENOL EXTRA STRENGTH 500 MG TAB) as necessary for pain. use as directed No current facility-administered medications on file prior to visit. Social History Social History Tobacco Use Smoking status: Never Smokeless tobacco: Never Vaping Use Vaping Use: Never used Substance Use Topics Alcohol use: No Drug use: No Review of Symptoms REVIEW OF SYSTEMS GENERAL: No weight loss, malaise or fevers HEENT: Negative for frequent or significant headaches, No changes in hearing or vision, no nose bleeds or other nasal problems NECK: Negative for lumps, goiter, pain and significant neck swelling RESPIRATORY: Negative for cough, hemoptysis, wheezing, COPD, dyspnea or shortness of breath CARDIOVASCULAR: Negative for chest pain, leg swelling, hypertension, CHF or palpitations GI: No nausea, vomiting, or diarrhea, No heartburn or reflux symptoms, and no blood : No history of dysuria, blood MUSCULOSKELETAL: Negative for new or changes in her typical joint pain or swelling, back pain or muscle pain SKIN: Negative for lesions, rash, and itching PSYCH: Negative for sleep disturbance, mood disorder and recent psychosocial stressors HEMATOLOGY/LYMPHOLOGY: Negative for prolonged bleeding, bruising easily or swollen nodes ENDOCRINE: Negative for cold or heat intolerance, polyuria, polydipsia and goiter NEURO: No history of headaches, syncope, paralysis, seizures or tremors EXAM: BP 128/80 (BP Site: Left Arm, BP Position: Sitting, BP Cuff Size: Large Adult) Pulse 74 Resp 16 Wt 78.5 kg (173 lb) LMP 04/20/2019 (Approximate) BMI 32.69 kg/m Last 5 Encounter Wt Readings: Date: Wt: 02/06/2023 78.5 kg (173 lb) 01/18/2023 78.9 kg (174 lb) 04/11/2022 79.2 kg (174 lb 9.6 oz) 04/02/2022 78.5 kg (173 lb) 02/26/2022 79.1 kg (174 lb 6.4 oz) General Appearance: Well appearing, alert, in no acute distress, well-hydrated, well nourished.. Skin: Skin color, texture, turgor normal, no suspicious rashes or lesions. Head: Normocephalic, no masses, lesions, tenderness or abnormalities. Eyes: Anicteric sclera. Pupils are equally round and reactive to light. Extraocular movements are intact. . Ears: External ears normal, canals clear. Neck: Supple, no adenopathy; thyroid symmetric, normal size, no bruits. Lungs: Lungs clear to auscultation. No wheezing, rhonchi, rales.. Heart: RRR without murmur, gallop, or rubs. No ectopy. Abdomen: Normal abdominal exam, Abdomen soft, non-tender. Bowel sounds normal. No masses, organomegaly. Extremities: No deformities, edema, skin discoloration, Good capillary refill. . Musculoskeletal: Muscular strength intact, No joint swelling, deformity, or tenderness. Peripheral Pulses: Normal. Neurologic: Gait normal. Reflexes normal and symmetric. Sensation to light touch and crainal nerves 2-12 intact.. Health Maintenance List HEPATITIS B(1 of 3 - 3-dose series) Never done SHINGRIX VACCINE(1 of 2) Never done COVID-19 VACCINE(3 - Pfizer risk series) due on 08/22/2021 INFLUENZA(1) due on 07/12/2022 DEPRESSION ASSESSMENT Never done MAMMOGRAM due on 01/12/2023 COLORECTAL CANCER SCREENING due on 09/03/2023 DIABETES SCREEN due on 02/05/2025 PAP TESTING due on 07/26/2025 HPV TESTING due on 07/26/2025 LIPID SCREEN due on 01/04/2027 DTAP,TDAP,TD(3 - Td or Tdap) due on 11/14/2027 HEPATITIS C SCREENING Completed HIV SCREENING Discontinued PNEUMOCOCCAL Discontinued Data reviewed Component Latest Ref Rng & Units 01/18/2023 HCV RNA by PCR HCV RNA not detected by PCR. HCV RNA not detected by PCR. Hep B Surface Ag Negative Negative Hep A Ab, IgM Negative Negative Hep B Core Ab, IgM Negative Negative A/P ASSESSMENT/PLAN: 1. Well adult exam - ICD9: V70.0, ICD10: Z00.00 (primary diagnosis) - Counseled on healthy diet and regular exercise - Calcium intake with supplements or by diet of 1000 mg/day for under 50, 0022-1568 mg/day for 50+ - Follow up for annual exam in one year Check - LIPID PANEL, NONFASTING 2. Multiple thyroid nodules - ICD9: 241.1, ICD10: E04.2 - will get US in 2023 3. GERD without esophagitis - ICD9: 530.81, ICD10: K21.9 - Continue treatment with Nexium 20 mg every day Check - VITAMIN B12 BLOOD - MAGNESIUM BLD 4. Rheumatoid arthritis involving multiple sites with positive rheumatoid factor (HCC) - ICD9: 714.0, ICD10: M05.79 - management per Rheum 5. Trigeminal neuralgia - ICD9: 350.1, ICD10: G50.0 - clinically stable 6. Fatty liver - ICD9: 571.8, ICD10: K76.0 Check - HEPATIC FUNCTION PNL and lipid panel - patient to work on diet and exercise for weight loss. 7. Obesity, Class I, BMI 30-34.9 - ICD9: 278.00, ICD10: E66.9 Stable - Behavioral intervention 8. Encounter for screening for diabetes mellitus - ICD9: V77.1, ICD10: Z13.1 - check A1c 9. Encounter for lipid screening for cardiovascular disease - ICD9: V77.91, V81.2, ICD10: Z13.220, Z13.6 Check - LIPID PANEL, NONFASTING 10. Medication management - ICD9: V58.69, ICD10: Z79.899 Check - VITAMIN B12 BLOOD - MAGNESIUM BLD 11. Encounter for screening mammogram for breast cancer - ICD9: V76.12, ICD10: Z12.31 Check - MAKENZIE SCREENING F/u in a year or sooner if issues. Herman Murray MD documented in this encounter [facility] 01-23-2023 Miscellaneous Notes Patient was notified Ruth Casillas Ma Let patient know that her repeat labs were all normal. Continue as discussed with dr. Murray. documented in this encounter [facility] 01-07-2023 History of Presen t illness Narrative Scan on 01/04/2023 4:01 PM by External Provider: Ultrasound Analilia Diaz MA documented in this encounter [facility] 04-11-2022 Miscellaneous Notes The following approved medication requests have been transmitted electronically. Signed Prescriptions Disp Refills methylPREDNISolone (MEDROL, DONTRELL,) 4 mg Dose-Pack 1 Package 0 Sig: Follow dosing instructions, take with food. doxycycline (VIBRA-TABS) 100 mg tablet 14 tablet 0 Sig: Take 1 tablet by mouth twice daily for 7 days. Herman Murray MD documented in this encounter [facility] 04-11-2022 History of Presen t illness Narrative Chief Complaint Patient presents with: Recheck HPI Emilia Hensley is a 56 year old female who presents here today for a follow up. Pt here today for rash follow up. Pt seen in office on 04/02/22 with c/o of red blotches on back of head for 1 week. Pt dx with folliculitis and given an Rx of Duricef 500 mg 1 tab po bid for 7 days and a Medrol Dose pack. Pt not able to see the difference, but her took a picture of the area yesterday. She feels this looks worse then her previous visit. Possible blister now vs redness. Pt states the area feels like she got burnt, did not have this previously. Unsure if the pain she feels is related to the trigeminal neuralgia. Not itchy. Past medical history, appointments, medications, allergies reviewed. Previous Medical History PAST MEDICAL HISTORY Diagnosis Date COVID-19 virus infection 11/27/202111/2021 Current use of proton pump inhibitor 06/25/2018 GERD without esophagitis 06/25/2018 IBS (irritable bowel syndrome) 09/22/2015 Multiple thyroid nodules 01/06/2019 Neck pain 03/05/2013 PAIN JOINT, ELBOW 05/21/2008 Rheumatoid arthritis involving multiple sites with positive rheumatoid factor (HCC) 01/23/[address] Varghese Trigeminal neuralgia 03/05/2013 Believe it was humara related. Well adult exam 11/14/2017 last done: 12/31/2018 Previous Surgical History PAST SURGICAL HISTORY Procedure Laterality Date 2D ECHO (EXEP) 03/12/2017 EF=65%, no valve issues ADENOIDECTOMY PRIMARY <AGE 14 Adenoidectomy CARDIAC CATH 03/13/2017 normal vessels COLONOSCOPY FLX DX W/COLLJ SPEC WHEN PFRMD 09/03/2013 normal, repeat due 2022 ESOPHAGOGASTRODUODENOSCOPY TRANSORAL DIAGNOSTIC 09/03/2013 chronic gastritis LAPAROSCOPY SURG CHOLECYSTECTOMY 02/15/2022 TONSILLECTOMY PRIMARY/SECONDARY <AGE 14 Tonsillectomy Family History FAMILY HISTORY Problem Relation Age of Onset Breast Cancer Mother Diabetes Mother Cancer Father not known Heart disease Sister Hypertension Sister Diabetes Sister Hyperlipidemia Sister Thyroid Sister Alzheimer's Disease No Family History Colon Cancer No Family History Prostate Cancer No Family History Ovarian cancer No Family History Coronary Artery Disease No Family History Kidney Disease No Family History Seizures No Family History Stroke No Family History Patient Allergies ALLERGIES Allergen Reactions Berries And Johanna* Rash, Swelling Penicillins Other: See Comments Rash and swelling Adhesive Tape-Silic* Rash Pneumovax 23 [Pneum* Other: See Comments Back headache, Arm pain for 5 days Current Medications Current Outpatient Medications on File Prior to Visit Medication Sig leucovorin (LEUCOVORIN) 15 mg tablet Take by mouth. (Patient not taking: Reported on 02/12/2022 ) leucovorin (LEUCOVORIN) 5 mg tablet Take 3 Tablet(s) Oral once a week predniSONE (DELTASONE) 2.5 mg tablet Take 2.5 mg by mouth once daily as needed. (Patient not taking: Reported on 02/26/2022 ) methotrexate 2.5 mg tablet TAKE 8 TABLETS once each week. abatacept (ORENCIA) 125 mg/mL syrg esomeprazole magnesium (NEXIUM 24HR) 22.3 mg cpDR Take 1 capsule by mouth once daily. Per Dr. Varghese FOLIC ACID ORAL Take by mouth twice daily. Not sure of mg multivits w-ca,fe,other min(ONE-A-DAY WOMENS FORMULA 27 MG-0.4 MG TAB) Take one(1) tablet daily. acetaminophen(TYLENOL EXTRA STRENGTH 500 MG TAB) as necessary for pain. use as directed No current facility-administered medications on file prior to visit. Social History Social History Tobacco Use Smoking status: Never Smoker Smokeless tobacco: Never Used Vaping Use Vaping Use: Never used Substance Use Topics Alcohol use: No Drug use: No Review of Symptoms REVIEW OF SYSTEMS See HPI EXAM: BP 116/84 (BP Site: Left Arm, BP Position: Sitting, BP Cuff Size: Large Adult) Pulse 68 Resp 16 Wt 79.2 kg (174 lb 9.6 oz) LMP 04/20/2019 (Approximate) BMI 32.99 kg/m General Appearance: Well appearing, alert, in no acute distress, well-hydrated, well nourished.. Skin: there is still the erythematous patches on the back of her scalp though not as erythematous this time. No blisters or scaling. The rash does macario. Health Maintenance List HEPATITIS C SCREENING due on 02/05/2023 SHINGRIX VACCINE(1 of 2) due on 02/05/2023 COVID-19 VACCINE(3 - Pfizer risk series) due on 02/05/2023 MAMMOGRAM due on 01/12/2023 COLORECTAL CANCER SCREENING due on 09/03/2023 DIABETES SCREEN due on 02/05/2025 PAP TESTING due on 07/26/2025 HPV TESTING due on 07/26/2025 LIPID SCREEN due on 01/04/2027 DTAP,TDAP,TD(3 - Td or Tdap) due on 11/14/2027 INFLUENZA Completed HIV SCREENING Discontinued DEPRESSION SCREENING Discontinued PNEUMOCOCCAL Discontinued Data reviewed A/P ASSESSMENT/PLAN: 1. Rash - ICD9: 782.1, ICD10: R21 - This maybe a reaction to a few of her Rheumatologic meds and patient was asked to discuss with Clinical Academic Allergist who she sees today. If Rheum disagrees would place on a different antibiotic such as Bacterium DS twice a day for 7 days ad a medrol dose pack. Herman Murray MD documented in this encounter [facility] 04-02-2022 History of Presen t illness Narrative Chief Complaint Patient presents with: Recheck: patient is here red blotches on back on head in hairline HPI Emilia Hensley is a 56 year old female who presents here today for red blotches on back of head x 1 week. No itching that she is aware of. From what she knows the areas are not sore to touch. Not aware of any new contacts. Past medical history, appointments, medications, allergies reviewed. Previous Medical History PAST MEDICAL HISTORY Diagnosis Date COVID-19 virus infection 11/27/202111/2021 Current use of proton pump inhibitor 06/25/2018 GERD without esophagitis 06/25/2018 IBS (irritable bowel syndrome) 09/22/2015 Multiple thyroid nodules 01/06/2019 Neck pain 03/05/2013 PAIN JOINT, ELBOW 05/21/2008 Rheumatoid arthritis involving multiple sites with positive rheumatoid factor (HCC) 01/23/[address] Varghese Trigeminal neuralgia 03/05/2013 Believe it was humara related. Well adult exam 11/14/2017 last done: 12/31/2018 Previous Surgical History PAST SURGICAL HISTORY Procedure Laterality Date 2D ECHO (EXEP) 03/12/2017 EF=65%, no valve issues ADENOIDECTOMY PRIMARY <AGE 14 Adenoidectomy CARDIAC CATH 03/13/2017 normal vessels COLONOSCOPY FLX DX W/COLLJ SPEC WHEN PFRMD 09/03/2013 normal, repeat due 2022 ESOPHAGOGASTRODUODENOSCOPY TRANSORAL DIAGNOSTIC 09/03/2013 chronic gastritis LAPAROSCOPY SURG CHOLECYSTECTOMY 02/15/2022 TONSILLECTOMY PRIMARY/SECONDARY <AGE 14 Tonsillectomy Family History FAMILY HISTORY Problem Relation Age of Onset Breast Cancer Mother Diabetes Mother Cancer Father not known Heart disease Sister Hypertension Sister Diabetes Sister Hyperlipidemia Sister Thyroid Sister Alzheimer's Disease No Family History Colon Cancer No Family History Prostate Cancer No Family History Ovarian cancer No Family History Coronary Artery Disease No Family History Kidney Disease No Family History Seizures No Family History Stroke No Family History Patient Allergies ALLERGIES Allergen Reactions Berries And Johanna* Rash, Swelling Penicillins Other: See Comments Rash and swelling Adhesive Tape-Silic* Rash Pneumovax 23 [Pneum* Other: See Comments Back headache, Arm pain for 5 days Current Medications Current Outpatient Medications on File Prior to Visit Medication Sig leucovorin (LEUCOVORIN) 5 mg tablet Take 3 Tablet(s) Oral once a week methotrexate 2.5 mg tablet TAKE 8 TABLETS once each week. abatacept (ORENCIA) 125 mg/mL syrg esomeprazole magnesium (NEXIUM 24HR) 22.3 mg cpDR Take 1 capsule by mouth once daily. Per Dr. Varghese FOLIC ACID ORAL Take by mouth twice daily. Not sure of mg multivits w-ca,fe,other min(ONE-A-DAY WOMENS FORMULA 27 MG-0.4 MG TAB) Take one(1) tablet daily. acetaminophen(TYLENOL EXTRA STRENGTH 500 MG TAB) as necessary for pain. use as directed leucovorin (LEUCOVORIN) 15 mg tablet Take by mouth. (Patient not taking: Reported on 02/12/2022 ) predniSONE (DELTASONE) 2.5 mg tablet Take 2.5 mg by mouth once daily as needed. (Patient not taking: Reported on 02/26/2022 ) No current facility-administered medications on file prior to visit. Social History Social History Tobacco Use Smoking status: Never Smoker Smokeless tobacco: Never Used Vaping Use Vaping Use: Never used Substance Use Topics Alcohol use: No Drug use: No Review of Symptoms REVIEW OF SYSTEMS See HPI EXAM: BP 118/86 (BP Site: Left Arm, BP Position: Sitting, BP Cuff Size: Large Adult) Pulse 76 Resp 16 Wt 78.5 kg (173 lb) LMP 04/20/2019 (Approximate) BMI 32.69 kg/m General Appearance: Well appearing, alert, in no acute distress, well-hydrated, well nourished.. Skin: on the back of the scalp there is an area of erythema about 4-6 cm in diameter with some smaller areas off to the left surrounding the hair follicles in these areas. No vesicles. . Neck: No lymphadenopathy. Health Maintenance List HEPATITIS C SCREENING due on 02/05/2023 SHINGRIX VACCINE(1 of 2) due on 02/05/2023 COVID-19 VACCINE(3 - Pfizer risk series) due on 02/05/2023 MAMMOGRAM due on 01/12/2023 COLORECTAL CANCER SCREENING due on 09/03/2023 DIABETES SCREEN due on 02/05/2025 PAP TESTING due on 07/26/2025 HPV TESTING due on 07/26/2025 LIPID SCREEN due on 01/04/2027 DTAP,TDAP,TD(3 - Td or Tdap) due on 11/14/2027 INFLUENZA Completed MENINGOCOCCAL CONJUGATE Aged Out HIV SCREENING Discontinued DEPRESSION SCREENING Discontinued Data reviewed A/P ASSESSMENT/PLAN: 1. Folliculitis - ICD9: 704.8, ICD10: L73.9 - vs a contact dermatitis. Will treat with duricef 500 mg twice a day for 7 days along with a medrol dose pack. Signed Prescriptions Disp Refills cefADROxil (DURICEF) 500 mg capsule 14 capsule 0 Sig: Take 1 capsule by mouth twice daily for 7 days. methylPREDNISolone (MEDROL, DONTRELL,) 4 mg Dose-Pack 1 Package 0 Sig: Follow dosing instructions, take with food. Patient to f/u in a week for recheck. Herman Murray MD documented in this encounter [facility] 02-26-2022 History of Presen t illness Narrative FOLLOW UP VISIT NAME: Emilia Rolle [facility] NO.: [id number] DATE OF SERVICE: 02/26/2022 : 1965 REFERRING PHYSICIAN: Herman Murray MD Emilia is status post laparoscopic cholecystectomy with intraoperative cholangiograms done at [facility] on 02/15/2022. She states that she still has abdominal soreness, but denies the pain that she had prior to surgery. She is tolerating a diet. She had some constipation after the surgery but this resolved with miralax. VITALS: Blood pressure 118/68, pulse 88, temperature 36.6 C (97.8 F), weight 79.1 kg (174 lb 6.4 oz), last menstrual period 04/20/2019, SpO2 100 %. On examination, abdomen is soft and benign. Wounds are well healed without evidence of infection. Pathology revealed - chronic cholecystitis and cholelithiasis. Assessment IMPRESSION: status post laparoscopic cholecystectomy PLAN: Patient to return to her PCP for medical care. If the patient notes any problems or signs of infection/pain, the patient should return to this clinic. Diagnoses: No diagnosis found. Return to Clinic: The patient is instructed to follow-up with as above. I have confirmed and edited as necessary, the PFSH and ROS obtained by others. Danielle Orr MD documented in this encounter [facility] 02-19-2022 Miscellaneous Notes [facility] Paperwork Faxed. Confirmation received. documented in this encounter [facility] 02-12-2022 History of Presen t illness Narrative HISTORY AND PHYSICAL Emilia Rolle Hensley 1965 REFERRING PHYSICIAN: Eri Loza PA-C CHIEF COMPLAINT: Consult (gallstones) HPI: The patient is a 56 year old female presents with complaint of epigastric abdominal pain. She also notes pain in the LUQ and RUQ, though left is greater than right. She notes pain with eating foods. She hasn't been able to eat due to fear of exacerbating her symptoms. She has noted looser stools, normally she is constipated. She has had nausea. She denies fevers. She denies jaundice or icterus. US 02/08/2022 Biliary: No intrahepatic biliary duct dilation. CBD: 3 mm in diameter. Gallbladder: Normal caliber -Contents: A few mobile gallbladder stones identified measuring up to 8 mm. Also seen is gallbladder sludge. -Wall: 2 mm in thickness -Other: Negative sonographic Grady's sign. IMPRESSION: Gallbladder stones and sludge. PAST MEDICAL HISTORY Diagnosis Date COVID-19 virus infection 11/27/202111/2021 Current use of proton pump inhibitor 06/25/2018 GERD without esophagitis 06/25/2018 IBS (irritable bowel syndrome) 09/22/2015 Multiple thyroid nodules 01/06/2019 Neck pain 03/05/2013 PAIN JOINT, ELBOW 05/21/2008 Rheumatoid arthritis involving multiple sites with positive rheumatoid factor (HCC) 01/23/[address] Varghese Trigeminal neuralgia 03/05/2013 Believe it was humara related. Well adult exam 11/14/2017 last done: 12/31/2018 PAST SURGICAL HISTORY Procedure Laterality Date 2D ECHO (EXEP) 03/12/2017 EF=65%, no valve issues ADENOIDECTOMY PRIMARY <AGE 14 Adenoidectomy CARDIAC CATH 03/13/2017 normal vessels COLONOSCOPY FLX DX W/COLLJ SPEC WHEN PFRMD 09/03/13 normal, repeat due 2022 ESOPHAGOGASTRODUODENOSCOPY TRANSORAL DIAGNOSTIC 09/03/13 chronic gastritis TONSILLECTOMY PRIMARY/SECONDARY <AGE 14 Tonsillectomy Current Outpatient Medications Medication Sig leucovorin (LEUCOVORIN) 5 mg tablet Take 3 Tablet(s) Oral once a week predniSONE (DELTASONE) 2.5 mg tablet Take 2.5 mg by mouth once daily as needed. methotrexate 2.5 mg tablet TAKE 8 TABLETS once each week. abatacept (ORENCIA) 125 mg/mL syrg esomeprazole magnesium (NEXIUM 24HR) 22.3 mg cpDR Take 1 capsule by mouth once daily. Per Dr. Varghese FOLIC ACID ORAL Take by mouth twice daily. Not sure of mg multivits w-ca,fe,other min(ONE-A-DAY WOMENS FORMULA 27 MG-0.4 MG TAB) Take one(1) tablet daily. acetaminophen(TYLENOL EXTRA STRENGTH 500 MG TAB) as necessary for pain. use as directed leucovorin (LEUCOVORIN) 15 mg tablet Take by mouth. (Patient not taking: Reported on 02/12/2022 ) ALLERGIES: Berries And Cherries [Other], Penicillins, and Pneumovax 23 [Pneumococcal 23-Mati Ps Vaccine] PERSONAL HISTORY: Social History Tobacco Use Smoking status: Never Smoker Smokeless tobacco: Never Used Vaping Use Vaping Use: Never used Substance Use Topics Alcohol use: No Drug use: No FAMILY HISTORY Problem Relation Age of Onset Breast Cancer Mother Diabetes Mother Cancer Father not known Heart disease Sister Hypertension Sister Diabetes Sister Hyperlipidemia Sister Thyroid Sister Alzheimer's Disease No Family History Colon Cancer No Family History Prostate Cancer No Family History Ovarian cancer No Family History Coronary Artery Disease No Family History Kidney Disease No Family History Seizures No Family History Stroke No Family History The review of systems data was entered by the nurse and reviewed by ms Nursing Notes: Ankita Tinoco RN 02/12/2022 3:28 PM Signed REVIEW OF SYSTEMS: General: The patient denies fatigue, denies weight loss, denies weight gain, denies feeling hot, and denies feelings of cold. Eyes: The patient denies glaucoma, denies eye injury/surgery, wears glasses or contacts. Ear/Nose/Throat: The patient denies allergies, denies hayfever, denies ear infections, and denies bloody noses. Cardiovascular: The patient denies chest pain, denies heart disease, denies high blood pressure,denies cardiac stent, denies prior heart attack, denies irregular heart beat, denies high cholesterol, denies poor circulation, denies heart failure, other cardiac issues, denies claudication, denies cold feet, denies peripheral arterial stent. Respiratory: The patient denies tuberculosis, denies pneumonia, denies frequent cough, denies pulmonary embolism, denies shortness of breath, and denies coughing up blood. Gastrointestinal: The patient denies difficulty swallowing, NOTES acid reflux, denies ulcers, denies vomiting, denies jaundice/hepatitis, NOTES gallbladder problems, denies black or tarry stools, denies hemorrhoids, denies bleeding from rectum, denies diverticulitis, denies constipation, denies diarrhea, denies loss of stool control, and denies hernias. Kidney/Bladder: The patient denies kidney stones, denies urine infections, and denies bloody urine. Skin: The patient denies a history of skin cancer, denies bleeding/changing moles, and denies a history of skin rash. Neurologic: The patient denies a history of epilepsy/convulsions, denies headaches, denies head/spinal injuries, and denies stroke/TIA. Psychiatric: The patient denies psychiatric medications, denies depression, and denies voices, denies substance abuse. Endocrine: The patient NOTES thyroid disorders, denies diabetes, and denies hormonal problems. Hematologic: The patient denies a history of bruising, denies bleeding, and denies anemia, denies blood clots. Infections: The patient denies a history of measles and mumps, denies rheumatic fever, and denies sexually transmitted diseases. Musculoskeletal: The patient denies back pain/injury, denies back problems, denies sciatica, denies knee/foot trouble, NOTES arthritis, or denies gout. When was patient's last Mammogram screening? 01/12/2022 Last Colonoscopy: 09/03/2013 Ankita Tinoco RN PHYSICAL EXAMINATION: General: The patient is 56 year old female, well nourished, well hydrated in no acute distress. The patient is oriented to time, place, and person. VITALS: Blood pressure 128/76, pulse 90, temperature 36.4 C (97.6 F), height 154.9 cm (5' 1), weight 79.1 kg (174 lb 6.4 oz), last menstrual period 04/20/2019, SpO2 100 %. Body mass index is 32.95 kg/m . Head Normocephalic. EOM intact with sclera clear and no icterus noted. Wearing glasses Neck - supple with no jugular venous distention noted. Trachea is midline. Lungs clear to auscultation. Normal breath sounds. No rales/rhonchi/wheezing noted. No labored breathing noted, such as retractions. No cough heard. Heart normal S1 and S2 auscultated. No rubs/clicks/murmurs noted. Regular rate. Abdomen soft but tender in the upper abdomen, no peritoneal signs noted. Extremities no calf tenderness noted. No pitting edema noted. Skin normal skin integrity. Neurological gait normal, no focal deficits noted. Psych calm and appropriate RADIOLOGIC STUDIES: As Noted Assessment IMPRESSION: epigastric abdominal pain and abnormal ultrasound of gallbladder PLAN: I have discussed the above with the patient and her who is present with her. I have offered laparoscopic cholecystectomy, possible cholangiograms I have explained the procedure to the patient. I have counseled the patient as to the risks of the procedure, including but not limited to: infection, bleeding, injury to any blood vessels/nerves, scar tissue, injury to any intrabdominal organs, injury to bowel/bladder, injury to the common bile duct/biliary tree, bile leakage, intraabdominal abscess/bleeding, hernias at incisional sites, wound infections, complications of anesthesia, etc. the patient understands. The patient wishes to proceed. I have answered all questions to the patient s satisfaction and the patient has no further questions. I have confirmed and edited as necessary, the PFSH and ROS obtained by others. Consultation requested by Eri Loza for an opinion regarding epigastric abdominal pain and abnormal ultrasound of gallbladder. My final recommendations will be communicated back to the requesting physician by way of shared Medical record or letter to requesting physician via US mail. . Diagnoses: (K80.20) Gall stones (R10.13) Epigastric pain Return to Clinic: The patient is scheduled for surgery at [facility] on February 15. Medical Decision Making: Problems: Low: Acute, uncomplicated illness or injury Data: Unique test result(s) reviewed: 1 Risk: Moderate: Decision on elective major surgery w/o risk factors Medical Decision Making Level: 3 - Low Danielle Orr MD documented in this encounter [facility] 02-12-2022 Miscellaneous Notes 02-15-2022 Melo Garcia documented in this encounter [facility] 02-12-2022 Nurse Note REVIEW OF SYSTEMS: General: The patient denies fatigue, denies weight loss, denies weight gain, denies feeling hot, and denies feelings of cold. Eyes: The patient denies glaucoma, denies eye injury/surgery, wears glasses or contacts. Ear/Nose/Throat: The patient denies allergies, denies hayfever, denies ear infections, and denies bloody noses. Cardiovascular: The patient denies chest pain, denies heart disease, denies high blood pressure,denies cardiac stent, denies prior heart attack, denies irregular heart beat, denies high cholesterol, denies poor circulation, denies heart failure, other cardiac issues, denies claudication, denies cold feet, denies peripheral arterial stent. Respiratory: The patient denies tuberculosis, denies pneumonia, denies frequent cough, denies pulmonary embolism, denies shortness of breath, and denies coughing up blood. Gastrointestinal: The patient denies difficulty swallowing, NOTES acid reflux, denies ulcers, denies vomiting, denies jaundice/hepatitis, NOTES gallbladder problems, denies black or tarry stools, denies hemorrhoids, denies bleeding from rectum, denies diverticulitis, denies constipation, denies diarrhea, denies loss of stool control, and denies hernias. Kidney/Bladder: The patient denies kidney stones, denies urine infections, and denies bloody urine. Skin: The patient denies a history of skin cancer, denies bleeding/changing moles, and denies a history of skin rash. Neurologic: The patient denies a history of epilepsy/convulsions, denies headaches, denies head/spinal injuries, and denies stroke/TIA. Psychiatric: The patient denies psychiatric medications, denies depression, and denies voices, denies substance abuse. Endocrine: The patient NOTES thyroid disorders, denies diabetes, and denies hormonal problems. Hematologic: The patient denies a history of bruising, denies bleeding, and denies anemia, denies blood clots. Infections: The patient denies a history of measles and mumps, denies rheumatic fever, and denies sexually transmitted diseases. Musculoskeletal: The patient denies back pain/injury, denies back problems, denies sciatica, denies knee/foot trouble, NOTES arthritis, or denies gout. When was patient's last Mammogram screening? 01/12/2022 Last Colonoscopy: 09/03/2013 Ankita Tinoco RN documented in this encounter [facility] 02-09-2022 Miscellaneous Notes Pt notified of same. Pt was transferred to set up appt with general surgery. Basilio Parks LPN consult placed. Let her know that they may decide on other testing to be completed first. Such as a scope. Will await their opinion. Eri Loza PA-C Patient returns call and provider message below given. Patient would like to see surgeon d/t epigastric pain. Order pended. Lorena Melissa RN Left message for pt to contact office. Basilio Parks LPN Let patient know that she has gallstones and some sludge. Given that she had pain on exam, this may be the cause. i'm not convinced one way or another. Amelia since no sign of inflammation noted on US. See if she would like to see surgeon to discuss options. Eri Loza PA-C documented in this encounter [facility] 10-24-2021 History of Presen t illness Narrative Radiology Service Progress Note PATIENT NAME: Emilia Hensley DATE OF SERVICE: October 24, 2021 TIME: 4:42 PM PATIENT IDENTITY VERIFICATION COMPLETED USING TWO (2) IDENTIFIERS: Name and Date of confirmed by patient verbally. FALL SCREENING: Has the patient had 2 falls in the last year or 1 fall with injury or currently using an Ambulatory Assistive Device (Walker, Cane, Wheelchair, Crutches, etc.)? No PATIENT GENDER DATA: Female. status: : No status: NO. PATIENT RELEVANT IMPLANT DATA REVIEWED: Not Applicable RADIOLOGY DEPARTMENT: General X-ray: Exam(s) Completed: Lower Extremity X-Ray(s): Foot, Left and Wt. 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 Well adult exam 09/22/2015 11/28/2015 Overview: Last done: 09/22/2015 Need for lipid screening 09/22/2015 016 Screening for diabetes mellitus (DM) 09/22/2015 11/28/2015 Routine general medical exam ination at a health care facility 04/26/2008 11/28/2015 documented as of this encounter (statuses as of 02/13/2022) [facility] History of Past illness Narrative* Problem Noted Date Resolved Date Visit for routine cigarette package examiner exam 09/22/201511/28 Overview: [facility]. Well adult exam 09/22/2015 11/28/2015 Overview: Last done: 09/22/2015 Need for lipid screening 09/22/2015 016 Screening for diabetes mellitus (DM) 09/22/2015 11/28/2015 Routine general medical exam ination at a health care facility 04/26/2008 11/28/2015 documented as of this encounter (statuses as of 02/15/2022) [address]12-2015 History of Past illness Narrative* Problem Noted Date Resolved Date Visit for routine cigarette package examiner exam 09/22/201511/28 Overview: [facility]. Well adult exam 09/22/2015 11/28/2015 Overview: Last done: 09/22/2015 Need for lipid screening 09/22/2015 016 Screening for diabetes mellitus (DM) 09/22/2015 11/28/2015 Routine general medical exam ination at a health care facility 04/26/2008 11/28/2015 documented as of this encounter (statuses as of 02/19/2022) [facility] History of Past illness Narrative* Problem Noted Date Resolved Date Visit for routine cigarette package examiner exam 09/22/201511/28 Overview: [facility]. Well adult exam 09/22/2015 11/28/2015 Overview: Last done: 09/22/2015 Need for lipid screening 09/22/2015 016 Screening for diabetes mellitus (DM) 09/22/2015 11/28/2015 Routine general medical exam ination at a health care facility 04/26/2008 11/28/2015 documented as of this encounter (statuses as of 02/26/2022) [facility] History of Past illness Narrative* Problem Noted Date Resolved Date Visit for routine cigarette package examiner exam 09/22/201511/28 Overview: [facility]. Well adult exam 09/22/2015 11/28/2015 Overview: Last done: 09/22/2015 Need for lipid screening 09/22/2015 016 Screening for diabetes mellitus (DM) 09/22/2015 11/28/2015 Routine general medical exam ination at a health care facility 04/26/2008 11/28/2015 documented as of this encounter (statuses as of 04/03/2022) [facility] History of Past illness Narrative* Problem Noted Date Resolved Date Visit for routine cigarette package examiner exam 09/22/201511/28 Overview: [facility]. Well adult exam 09/22/2015 11/28/2015 Overview: Last done: 09/22/2015 Need for lipid screening 09/22/2015 016 Screening for diabetes mellitus (DM) 09/22/2015 11/28/2015 Routine general medical exam ination at a health care facility 04/26/2008 11/28/2015 documented as of this encounter (statuses as of 04/11/2022) [facility] History of Past illness Narrative* Problem Noted Date Resolved Date Visit for routine cigarette package examiner exam 09/22/201511/28 Overview: [facility]. Well adult exam 09/22/2015 11/28/2015 Overview: Last done: 09/22/2015 Need for lipid screening 09/22/2015 016 Screening for diabetes mellitus (DM) 09/22/2015 11/28/2015 Routine general medical exam ination at a health care facility 04/26/2008 11/28/2015 documented as of this encounter (statuses as of 04/12/2022) [facility] History of Past illness Narrative* Problem Noted Date Resolved Date Visit for routine cigarette package examiner exam 09/22/201511/28 Overview: [facility]. Well adult exam 09/22/2015 11/28/2015 Overview: Last done: 09/22/2015 Need for lipid screening 09/22/2015 016 Screening for diabetes mellitus (DM) 09/22/2015 11/28/2015 Routine general medical exam ination at a health care facility 04/26/2008 11/28/2015 documented as of this encounter (statuses as of 01/08/2023) [facility] History of Past illness Narrative* Problem Noted Date Resolved Date Visit for routine cigarette package examiner exam 09/22/201511/28 Overview: [facility]. Well adult exam 09/22/2015 11/28/2015 Overview: Last done: 09/22/2015 Need for lipid screening 09/22/2015 016 Screening for diabetes mellitus (DM) 09/22/2015 11/28/2015 Routine general medical exam ination at a health care facility 04/26/2008 11/28/2015 documented as of this encounter (statuses as of 01/23/2023) [facility] History of Past illness Narrative* Problem Noted Date Resolved Date Visit for routine cigarette package examiner exam 09/22/201511/28 Overview: [facility]. Well adult exam 09/22/2015 11/28/2015 Overview: Last done: 09/22/2015 Need for lipid screening 09/22/2015 016 Screening for diabetes mellitus (DM) 09/22/2015 11/28/2015 Routine general medical exam ination at a health care facility 04/26/2008 11/28/2015 documented as of this encounter (statuses as of 02/07/2023) [facility]11-[facility]-2015 History of Past illness Narrative* Problem Noted Date Resolved Date Visit for routine cigarette package examiner exam 09/22/201511/28 Overview: [facility]. Well adult exam 09/22/2015 11/28/2015 Overview: Last done: 09/22/2015 Need for lipid screening 09/22/2015 016 Screening for diabetes mellitus (DM) 09/22/2015 11/28/2015 Routine general medical exam ination at a health care facility 04/26/2008 11/28/2015 documented as of this encounter (statuses as of 02/13/2023) [facility] History of Past illness Narrative* Problem Noted Date Resolved Date Visit for routine cigarette package examiner exam 09/22/201511/28 Overview: [facility]. Well adult exam 09/22/2015 11/28/2015 Overview: Last done: 09/22/2015 Need for lipid screening 09/22/2015 016 Screening for diabetes mellitus (DM) 09/22/2015 11/28/2015 Routine general medical exam ination at a health care facility 04/26/2008 11/28/2015 documented as of this encounter (statuses as of 02/28/2023) [facility] History of Past illness Narrative* Problem Noted Date Resolved Date Visit for routine cigarette package examiner exam 09/22/201511/28 Overview: [facility]. Well adult exam 09/22/2015 11/28/2015 Overview: Last done: 09/22/2015 Need for lipid screening 09/22/2015 016 Screening for diabetes mellitus (DM) 09/22/2015 11/28/2015 Routine general medical exam ination at a health care facility 04/26/2008 11/28/2015 documented as of this encounter (statuses as of 03/01/2023) [facility] History of Past illness Narrative* Problem Noted Date Diagnosed Date Resolved Date Visit for routine cigarette package examiner exam 09/22/2015 0 11/28/2015 Overview: [facility]. Well adult exam 09/22/2015 11/28/2015 Overview: Last done: 09/22/2015 Need for lipid screening 09/22/2015 Screening for diabetes mellitus (DM) 09/22/2015 11/28/2015 Routine general medical exam ination at a health care facility 04/26/2008 11/28/2015 documented as of this encounter (statuses as of 07/30/2023) [facility] History of Past illness Narrative* Problem Noted Date Diagnosed Date Resolved Date Visit for routine cigarette package examiner exam 09/22/2015 0 11/28/2015 Overview: [facility]. Well adult exam 09/22/2015 11/28/2015 Overview: Last done: 09/22/2015 Need for lipid screening 09/22/2015 Screening for diabetes mellitus (DM) 09/22/2015 11/28/2015 Routine general medical exam ination at a health care facility 04/26/2008 11/28/2015 documented as of this encounter (statuses as of 08/02/2023) [facility] History of Past illness Narrative* Problem Noted Date Diagnosed Date Resolved Date Visit for routine cigarette package examiner exam 09/22/2015 0 11/28/2015 Overview: [facility]. Well adult exam 09/22/2015 11/28/2015 Overview: Last done: 09/22/2015 Need for lipid screening 09/22/2015 Screening for diabetes mellitus (DM) 09/22/2015 11/28/2015 Routine general medical exam ination at a health care facility 04/26/2008 11/28/2015 documented as of this encounter (statuses as of 08/26/2023) [facility] History of Past illness Narrative* Problem Noted Date Diagnosed Date Resolved Date Visit for routine cigarette package examiner exam 09/22/2015 0 11/28/2015 Overview: [facility]. Well adult exam 09/22/2015 11/28/2015 Overview: Last done: 09/22/2015 Need for lipid screening 09/22/2015 Screening for diabetes mellitus (DM) 09/22/2015 11/28/2015 Routine general medical exam ination at a health care facility 04/26/2008 11/28/2015 documented as of this encounter (statuses as of 08/27/2023) [facility] History of Past illness Narrative* Problem Noted Date Diagnosed Date Resolved Date Visit for routine cigarette package examiner exam 09/22/2015 0 11/28/2015 Overview: [facility]. Well adult exam 09/22/2015 11/28/2015 Overview: Last done: 09/22/2015 Need for lipid screening 09/22/2015 Screening for diabetes mellitus (DM) 09/22/2015 11/28/2015 Routine general medical exam ination at a health care facility 04/26/2008 11/28/2015 documented as of this encounter (statuses as of 09/06/2023) [facility] History of Past illness Narrative* Problem Noted Date Diagnosed Date Resolved Date Visit for routine cigarette package examiner exam 09/22/2015 0 11/28/2015 Overview: [facility]. Well adult exam 09/22/2015 11/28/2015 Overview: Last done: 09/22/2015 Need for lipid screening 09/22/2015 Screening for diabetes mellitus (DM) 09/22/2015 11/28/2015 Routine general medical exam ination at a health care facility 04/26/2008 11/28/2015 documented as of this encounter (statuses as of 09/15/2023) [facility] History of Past illness Narrative* Problem Noted Date Diagnosed Date Resolved Date Visit for routine cigarette package examiner exam 09/22/2015 0 11/28/2015 Overview: [facility]. Well adult exam 09/22/2015 11/28/2015 Overview: Last done: 09/22/2015 Need for lipid screening 09/22/2015 Screening for diabetes mellitus (DM) 09/22/2015 11/28/2015 Routine general medical exam ination at a health care facility 04/26/2008 11/28/2015 documented as of this encounter (statuses as of 12/24/2023) [facility] History of Past illness Narrative* Problem Noted Date Diagnosed Date Resolved Date Visit for routine cigarette package examiner exam 09/22/2015 0 11/28/2015 Overview: [facility]. Well adult exam 09/22/2015 11/28/2015 Overview: Last done: 09/22/2015 Need for lipid screening 09/22/2015 Screening for diabetes mellitus (DM) 09/22/2015 11/28/2015 Routine general medical exam ination at a health care facility 04/26/2008 11/28/2015 documented as of this encounter (statuses as of 02/14/2024) [facility] History of Past illness Narrative* Problem Noted Date Diagnosed Date Resolved Date Visit for routine cigarette package examiner exam 09/22/2015 0 11/28/2015 Overview: [facility]. Well adult exam 09/22/2015 11/28/2015 Overview: Last done: 09/22/2015 Need for lipid screening 09/22/2015 Screening for diabetes mellitus (DM) 09/22/2015 11/28/2015 Routine general medical exam ination at a health care facility 04/26/2008 11/28/2015 documented as of this encounter (statuses as of 02/21/2024) [facility] History of Past illness Narrative* Problem Noted Date Diagnosed Date Resolved Date Visit for routine cigarette package examiner exam 09/22/2015 0 11/28/2015 Overview: [facility]. Well adult exam 09/22/2015 11/28/2015 Overview: Last done: 09/22/2015 Need for lipid screening 09/22/2015 Screening for diabetes mellitus (DM) 09/22/2015 11/28/2015 Routine general medical exam ination at a [facility] facility 04/26/2008 11/28/2015 documented as of this encounter (statuses as of 02/28/2024) [facility] Diagnosis Epigastric pain Abdominal pain, epigastric [facility] Diagnosis Gall stones- Primary Calculus of gallbladder without mention of cholecystitis or obstruction Epigastric pain Abdominal pain, epigastric [facility] Diagnosis Epigastric pain- Primary Abdominal pain, epigastric Gall stones Calculus of gallbladder without mention of cholecystitis or obstruction Calculus of gallbladder with cholecystitis without biliary obstruction, unspecified cholecystitis acuity [facility]* Diagnosis Status post laparoscopic cholecystectomy- Primary Other postprocedural status [facility] noteNo assessment information availableWMercy [facility] Work Phone: Evaluation note* Diagnosis Folliculitis- Primary Other specified disease of hair and hair follicles [facility] Diagnosis Rash- Primary Rash and other nonspecific skin eruption [facility]* Diagnosis Fatty liver Other chronic nonalcoholic liver disease [facility]* Diagnosis Well adult exam- Primary Routine general medical [facility] Multiple thyroid nodules Nontoxic multinodular goiter GERD without esophagitis Esophageal reflux Rheumatoid arthritis involving multiple sites with positive rheumatoid factor (HCC) Trigeminal neuralgia Fatty liver Other chronic nonalcoholic liver disease Obesity, Class I, BMI 30-34.9 Obesity, unspecified Encounter for screening for diabetes mellitus Screening for diabetes mellitus Encounter for lipid screening for cardiovascular disease Screening for lipoid disorders Medication management Encounter for long-term (current) use of other medications Encounter for screening mammogram for breast cancer [facility] Diagnosis Acute right ankle pain- Primary Foot pain, right Pain in limb [facility]* Diagnosis Complex regional pain syndrome type 1 of right upper extremity- Primary Traumatic closed displaced fracture of distal end of right radius with malunion Adhesive capsulitis of right shoulder [facility] Diagnosis Oth intartic fracture of lower end of right radius, init [facility] Diagnosis Right wrist pain- Primary Pain in joint, forearm documented in this encounter [facility] note* Diagnosis Encounter for screening mammogram for breast cancer [facility] Diagnosis Complex regional pain syndrome type 1 of right upper extremity- Primary Traumatic closed displaced fracture of distal end of right radius with malunion Adhesive capsulitis of right shoulder Carpal tunnel syndrome of right wrist documented in this encounter [facility] note* Diagnosis Right wrist pain Pain in joint, forearm documented in this encounter [facility] note* Diagnosis Allergic dermatitis- Primary Contact dermatitis and other eczema, due to unspecified cause [facility]* Diagnosis Complex regional pain syndrome type 1 of right upper extremity Adhesive capsulitis of right shoulder Carpal tunnel syndrome of right wrist Traumatic closed displaced fracture of distal end of right radius with malunion documented in this encounter [facility] note* Diagnosis Well adult exam- Primary Routine general medical examination at a health care facility GERD without esophagitis Esophageal reflux Multiple thyroid nodules Nontoxic multinodular goiter Rheumatoid arthritis involving multiple sites with positive rheumatoid factor (HCC) Complex regional pain syndrome type 1 of right upper extremity Obesity, Class I, BMI 30-34.9 Obesity, unspecified Fatty liver Other chronic nonalcoholic liver disease Closed fracture of distal end of right radius with malunion, unspecified fracture morphology, subsequent encounter Carpal tunnel syndrome, right Carpal tunnel syndrome Encounter for screening for diabetes mellitus Screening for diabetes mellitus Encounter for lipid screening for cardiovascular disease Screening for lipoid disorders Medication management Encounter for long-term (current) use of other medications [facility] Diagnosis Need for vaccination- Primary Need for prophylactic vaccination and inoculation against unspecified single disease [facility] this [facility]* Diagnosis Need for vaccination- Primary Need for prophylactic vaccination and inoculation against unspecified single disease [facility] Diagnosis Acute right ankle pain Foot pain, right Pain in limb [facility] Diagnosis Persistent cough- Primary Cough Sinobronchitis Unspecified sinusitis (chronic) Persistent cough Cough Sinobronchitis Unspecified sinusitis (chronic) [facility] Persistent [facility] Cough Sinobronchitis Unspecified sinusitis (chronic) [facility] Diagnosis Sinobronchitis- Primary Unspecified sinusitis (chronic) Persistent cough Cough [facility] Well adult exam- Primary Routine general medical examination at a health care facility GERD without esophagitis Esophageal reflux Multiple thyroid nodules Nontoxic multinodular goiter Rheumatoid arthritis involving multiple sites with positive rheumatoid factor (HCC) Obesity, Class I, BMI 30-34.9 Obesity, unspecified Trigeminal neuralgia Fatty liver Other chronic nonalcoholic liver disease Complex regional pain syndrome type 1 of right upper extremity Encounter for lipid screening for cardiovascular disease Screening for lipoid disorders Screening for depression Encounter for screening examination for other mental health and behavioral disorders Screening for colon cancer Special screening for malignant neoplasms, colon Medication management Encounter for long-term (current) use of other medications Encounter for screening for diabetes mellitus Screening for diabetes mellitus Encounter for screening mammogram for breast cancer [facility] Diagnosis Multiple thyroid nodules Nontoxic multinodular goiter [facility] Diagnosis Encounter for screening mammogram for breast cancer [facility] Diagnosis Screening for colon cancer Special screening for malignant neoplasms, colon [facility] Diagnosis Multiple thyroid nodules- Primary Nontoxic multinodular goiter [facility] Diagnosis Encounter for gynecological examination (general) (routine) without abnormal findings- Primary Encounter for screening for human papillomavirus (HPV) Special screening examination for human papillomavirus (HPV) Pap smear for cervical cancer screening Screening for malignant neoplasm of the cervix Encounter for screening mammogram for breast cancer Postmenopausal atrophic vaginitis [facility] Diagnosis Fatty liver- Primary Other chronic nonalcoholic liver disease [facility] Diagnosis Screening for colon cancer Special screening for malignant neoplasms, colon [facility] Diagnosis Fatty liver- Primary Other chronic nonalcoholic liver disease [facility]* Diagnosis Adenomatous polyp of transverse colon- Primary [facility]* Diagnosis Encounter for screening mammogram for breast cancer [facility] Attachments The following attachments cannot be sent through Care Everywhere. * Complex Regional Pain Syndrome ([place]) [facility] Diagnostic Procedure Only (Routine) - Closed Specialty Diagnoses / Procedures Referred By Contac t Referred To Contact US IMAGING Diagnoses Epigastric pain Procedures US ABD RT UPPER QUADRANT US ABDOMINAL REAL TIME W/IMAGE LIMITED Eri Loza PA-C [address] [place] [address] Us Imaging Referral ID Status Reason Start Date Expiration Date V isits Requested Visits Authorized [id number] Closed Auto-Generate d Referral 02/05/2022 03/07/2023 1 1 [facility] for referral (narrative)* Diagnostic Procedure Only (Routine) - Authorized Specialty Diagnoses / Procedures Referred By Contac t Referred To Contact [facility] Diagnoses Encounter for screening mammogram for breast cancer Procedures MAKENZIE SCREENING SCREENING MAMMOGRAPHY BI 2-VIEW BREAST INC CAD Herman Murray MD [address] [place] [address] [facility] [address] [place] [address] Referral ID Status Reason Start Date Expiration Date Visits Requested Visits Authorized [id number] Authorized Auto-Generat ed Referral 02/06/2023 03/07/2024 1 1 [facility] for referral (narrative)* Diagnostic Procedure Only (Urgent) - Closed Specialty Diagnoses / Procedures Referred By Contac t Referred To Contact XR IMAGING Diagnoses Acute right ankle pain Foot pain, right Procedures XR ANKLE GENERAL 3V AP/LAT/OBL RIGHT RADEX ANKLE COMPLETE MINIMUM 3 VIEWS Herman Rubio, DENTAL 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.[employer]ESSION[employer] [address] [place] [address] [place] [address] Referral ID Status Reason Start Date Expiration Date V isits Requested Visits Authorized [id number] Closed Auto-Generate d Referral 08/02/2023 08/31/2024 1 1 * Diagnostic Procedure Only (Urgent) - Closed Specialty Diagnoses / Procedures Referred By Contac t Referred To Contact XR IMAGING Diagnoses Acute right ankle pain Foot pain, right Procedures XR FOOT GENERAL 3V AP/LAT/OBL RIGHT RADEX FOOT COMPLETE MINIMUM 3 VIEWS Herman Rubio APRN.[employer] PROFESSIONAL [address] [place] [address] [place] [address] Referral ID Status Reason Start Date Expiration Date V isits Requested Visits Authorized [id number] Closed Auto-Generate d Referral 08/02/2023 08/31/2024 1 1 [facility] for referral (narrative)* Diagnostic Procedure Only (Routine) - Closed Specialty Diagnoses / Procedures Referred By Contac t Referred To Contact [facility] IM[facility] Diagnoses Encounter for screening mammogram for breast cancer Procedures MAKENZIE SCREENING SCREENING MAMMOGRAPHY BI 2-VIEW BREAST INC CAD Herman Murray MD [address] [place] [address] [facility] [address] [place] [address] Referral ID Status Reason Start Date Expiration Date V isits Requested Visits Authorized [id number] Closed Auto-Generate d Referral 02/06/2023 03/07/2024 1 1 [facility] for referral (narrative)* Diagnostic Procedure Only (Urgent) - Closed Specialty Diagnoses / Procedures Referred By Contac t Referred To Contact XR IMAGING Diagnoses Acute right ankle pain Foot pain, right Procedures XR ANKLE GENERAL 3V AP/LAT/OBL RIGHT RADEX ANKLE COMPLETE MINIMUM 3 VIEWS Herman Rubio APRN.[employer] PROFESSIONAL [address] [place] [address] [place] [address] Referral ID Status Reason Start Date Expiration Date V isits Requested Visits Authorized [id number] Closed Auto-Generate d Referral 08/02/2023 08/31/2024 1 1 * Diagnostic Procedure Only (Urgent) - Closed Specialty Diagnoses / Procedures Referred By Contac t Referred To Contact XR IMAGING Diagnoses Acute right ankle pain Foot pain, right Procedures XR FOOT GENERAL 3V AP/LAT/OBL RIGHT RADEX FOOT COMPLETE MINIMUM 3 VIEWS Herman Rubio APRN.[employer] PROFESSIONAL [address] [place] [address] [place] [address] Referral ID Status Reason Start Date Expiration Date V isits Requested Visits Authorized [id number] Closed Auto-Generate d Referral 08/02/2023 08/31/2024 1 1 [facility] for referral (narrative)No reason for referral information availableWMercy Memorial Hospital Work Phone: Reason for visit Narrative* Diagnostic Procedure Only (Routine) - Closed Specialty Diagnoses / Procedures Referred By Contac t Referred To Contact US IMAGING Diagnoses Epigastric pain Procedures US ABD RT UPPER QUADRANT US ABDOMINAL REAL TIME W/IMAGE LIMITED Eri Loza PA-C [address] [place] [address] Us Imaging Referral ID Status Reason Start Date Expiration Date V isits Requested Visits Authorized [id number] Closed Auto-Generate d Referral 02/05/2022 03/07/2023 1 1 [facility] for visit Narrative* Outpatient Procedure (Routine) - Closed Specialty Diagnoses / Procedures Referred By Contac t Referred To Contact [facility] Diagnoses Oth intartic fracture of lower end of right radius, init Procedures EMG(NEURO/NI) NERVE CONDUCTION STUDIES 9-10 STUDIES Terese Ortiz [address] [place] [address] [facility] [place] [address] [place] [address] Referral ID Status Reason Start Date Expiration Date V isits Requested Visits Authorized [id number] Closed Auto-Generate d Referral 08/15/2023 11/10/2023 1 1 [facility] for visit Narrative* Diagnostic Procedure Only (Routine) - Closed Specialty Diagnoses / Procedures Referred By Contac t Referred To Contact [facility] Diagnoses Encounter for screening mammogram for breast cancer Procedures MAKENZIE SCREENING SCREENING MAMMOGRAPHY BI 2-VIEW BREAST INC CAD Herman Murray MD [address] [place] [address] [facility] [address] [place] [address] Referral ID Status Reason Start Date Expiration Date V isits Requested Visits Authorized [id number] Closed Auto-Generate d Referral 02/06/2023 03/07/2024 1 1 [facility] for visit Narrative* Diagnostic Procedure Only (Urgent) - Closed Specialty Diagnoses / Procedures Referred By Contac t Referred To Contact XR IMAGING Diagnoses Acute right ankle pain Foot pain, right Procedures XR ANKLE GENERAL 3V AP/LAT/OBL RIGHT RADEX ANKLE COMPLETE MINIMUM 3 VIEWS Herman Rubio, DENTAL 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.[employer] PROFESSIONAL [address] [place] [address] [place] [address] Referral ID Status Reason Start Date Expiration Date V isits Requested Visits Authorized [id number] Closed Auto-Generate d Referral 08/02/2023 08/31/2024 1 1 [facility] for visit Narrative* Diagnostic Procedure Only (Urgent) - Closed Specialty Diagnoses / Procedures Referred By Contac t Referred To Contact XR IMAGING Diagnoses Foot pain, left Procedures XR FOOT GENERAL 3V AP/LAT/OBL LEFT X-RAY FOOT MINIMUM 3 VIEWS Colby Vicente 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.[employer] PROFESSIONAL [address] [place] [address] [place] [address] Referral ID Status Reason Start Date Expiration Date V isits Requested Visits Authorized [id number] Closed Auto-Generate d Referral 10/24/2021 11/23/2022 1 1 [facility] for visit Narrative* Diagnostic Procedure Only (Routine) - Closed Specialty Diagnoses / Procedures Referred By Contac t Referred To Contact [facility] Diagnoses Encounter for screening mammogram for breast cancer Procedures MAKENZIE SCREENING [place] SCREENING DIGITAL BREAST TOMOSYNTHESIS BI SCREENING MAMMOGRAPHY BI 2-VIEW BREAST INC CAD Herman Murray MD [address] [place] [address] Phone: tel: fax: [facility] [address] [place] [address] Referral ID Status Reason Start Date Expiration Date V isits Requested Visits Authorized [id number] Closed Auto-Generate d Referral 02/17/2025 03/18/2026 1 1 [facility]* Outpatient Procedure (Routine) - Closed Specialty Diagnoses / Procedures Referred By Bernabe iqbal Referred To Contact [facility] Diagnoses Screening for colon cancer Procedures COLONOSCOPY SCREENING COLONOSCOPY FLX DX W/COLLJ SPEC WHEN Vale Montejo APRN.[employer] PROFESSIONAL [address] [place] [address] Phone: tel: fax: [facility] [address] [place] [address] Referral ID Status Reason Start Date Expiration Date V isits Requested Visits Authorized [id number] Closed Auto-Generate d Referral 02/22/2025 02/22/2026 1 1 [facility] Reason for Referral Specialty Diagnoses / Procedures Referred By Bernabe t Referred To Contact General Surgery Diagnoses Gall stones Epigastric pain Procedures CONSULT TO GENERAL SURGERY OFFICE/OUTPATIENT COUNTS INCLUDE 234 BEDS AT THE [facility] MDM 60-74 MINUTES Eri Loza PA-C [address] [place] [address] Referral ID Status Reason Start Date Expiration Date Visits Requested Visits Authorized [id number] Authorized PCP Requested Referral 02/09/2022 02/09/2023 1 1 Specialty Diagnoses / Procedures Referred By Bernabe t Referred To Contact Physical Therapy Diagnoses Adhesive capsulitis of right shoulder Procedures LA OFFICE/OUTPATIENT [facility] MDM 60-74 MINUTES Ina Peterson MD [address] [facility] [address] [place] [address] Referral ID Status Reason Start Date Expiration Date Visits Requested Visits Authorized [id number] Pending Review Eval and Treat 08/08/2023 02/04/2024 99 99 Specialty Diagnoses / Procedures Referred By Contac t Referred To Contact Occupational Therapy Diagnoses Complex regional pain syndrome type 1 of right upper extremity Traumatic closed displaced fracture of distal end of right radius with malunion Procedures [place] OFFICE/OUTPATIENT [facility] 60-74 MINUTES Ina Peterson MD [address] [facility] [address] [place] [address] Referral ID Status Reason Start Date Expiration Date Visits Requested Visits Authorized [id number] Pending Review Eval and Treat 08/08/2023 08/08/2024 99 99 Specialty Diagnoses / Procedures Referred By Contac t Referred To Contact Occupational Therapy Diagnoses Complex regional pain syndrome type 1 of right upper extremity Adhesive capsulitis of right shoulder Carpal tunnel syndrome of right wrist Traumatic closed displaced fracture of distal end of right radius with malunion Procedures [place] OFFICE/OUTPATIENT [facility] 60 MINUTES Ina Peterson MD [address] [facility] [address] [place] [address] 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 Advance Directive(s) 02/15/2022 6:50 AM Advance Directive Response Recorded Date/ Time Living Will No March 13, 2017 8: 01am Power of Analytical Laboratory Technician No March 13, 2017 8:01am Advance Directive Response Recorded Date/ Time Living Will No March 13, 2017 7: 01am Power of Analytical Laboratory Technician No March 13, 2017 7:01am Advance Directive Response Recorded Date/ Time Living Will No May 15, 2023 1 2:42pm Power of Analytical Laboratory Technician No May 15, 2023 12:42pm Advance Directive Response Recorded Date/ Time Living Will No May 15, 2023 1 1:42am Power of Analytical Laboratory Technician No May 15, 2023 11:42am Advance Directive Response Recorded Date/ Time Living Will No December 13 9:21pm Do you have a Healthcare Power of Analytical Laboratory Technician? No December 13, 2024 9:21pm Summary Purpose Family History Relationship Condition Age at Onset Recorded Date/T joseph mother Diabetes mellitus Unknown father Malignant neoplasm Unknown Chief Complaint and Reason for Visit Chief Complaint PAIN- COPY PCP Chief Complaint ELEVATED LIVER ENZYM ES Chief Complaint PAIN- COPY PCP FALL Chief Complaint PAIN- COPY PCP FALL FX R RADIUS TO FAX PAIN- COPY PCP Chief Complaint FALL PAIN- COPY PCP PAIN- COPY PCP FX R RADIUS TO FAX Chief Complaint PAIN- COPY PCP FX R RADIUS DR TO FAX PAIN- COPY PCP Chief Complaint PAIN- COPY PCP PAIN- COPY PCP Chief Complaint Admit Date COPY PCP October 29, 2024 7:46am PAIN- COPY PCP December 01, 2024 8 :58am COUGH December 13, 2024 8 :17pm 2 DRS/ 2 ORDERS February 22, 2025 8:4 1am Chief Complaint Admit Date PAIN- COPY PCP December 01, 2024 8 :58am COUGH December 13, 2024 8 :17pm 2 DRS/ 2 ORDERS February 22, 2025 8:4 1am FATTY LIVER March 12, 2025 9:11am Chief Complaint Admit Date 2 DRS/ 2 ORDERS February 22, 2025 8:4 1am FATTY LIVER March 12, 2025 9:11am PAIN- COPY PCP March 30, 2025 7:31a m PAIN- COPY PCP May 17, 2025 7:05a m Additional Source Comments Source Comments (unrecognize d section and content) In the event this informatio n is protected by the Federal Confidentiality of Alcohol and Drug Abuse Patient Records regulations: The Federal rules restrict any use of the information to criminally investigate or prosecute any alcohol or drug abuse patient.[facility] the event this information is protected by the Federal Confidentiality of Alcohol and Drug Abuse Patient Records regulations: The Federal rules restrict any use of the information to criminally investigate or prosecute any alcohol or drug abuse patient.[facility] HospitalIn the event this information is protected by the Federal Confidentiality of Alcohol and Drug Abuse Patient Records regulations: The Federal rules restrict any use of the information to criminally investigate or prosecute any alcohol or drug abuse patient.[facility] HospitalIn the event this information is protected by the Federal Confidentiality of Alcohol and Drug Abuse Patient Records regulations: The Federal rules restrict any use of the information to criminally investigate or prosecute any alcohol or drug abuse patient.[facility] HospitalIn the event this information is protected by the Federal Confidentiality of Alcohol and Drug Abuse Patient Records regulations: The Federal rules restrict any use of the information to criminally investigate or prosecute any alcohol or drug abuse patient.[facility] HospitalIn the event this information is protected by the Federal Confidentiality of Alcohol and Drug Abuse Patient Records regulations: The Federal rules restrict any use of the information to criminally investigate or prosecute any alcohol or drug abuse patient.[facility] HospitalIn the event this information is protected by the Federal Confidentiality of Alcohol and Drug Abuse Patient Records regulations: The Federal rules restrict any use of the information to criminally investigate or prosecute any alcohol or drug abuse patient.[facility] HospitalIn the event this information is protected by the Federal Confidentiality of Alcohol and Drug Abuse Patient Records regulations: The Federal rules restrict any use of the information to criminally investigate or prosecute any alcohol or drug abuse patient.[facility] HospitalIn the event this information is protected by the Federal Confidentiality of Alcohol and Drug Abuse Patient Records regulations: The Federal rules restrict any use of the information to criminally investigate or prosecute any alcohol or drug abuse patient.[facility] HospitalIn the event this information is protected by the Federal Confidentiality of Alcohol and Drug Abuse Patient Records regulations: The Federal rules restrict any use of the information to criminally investigate or prosecute any alcohol or drug abuse patient.[facility] HospitalIn the event this information is protected by the Federal Confidentiality of Alcohol and Drug Abuse Patient Records regulations: The Federal rules restrict any use of the information to criminally investigate or prosecute any alcohol or drug abuse patient.[facility] HospitalIn the event this information is protected by the Federal Confidentiality of Alcohol and Drug Abuse Patient Records regulations: The Federal rules restrict any use of the information to criminally investigate or prosecute any alcohol or drug abuse patient.[facility] HospitalIn the event this information is protected by the Federal Confidentiality of Alcohol and Drug Abuse Patient Records regulations: The Federal rules restrict any use of the information to criminally investigate or prosecute any alcohol or drug abuse patient.[facility] HospitalIn the event this information is protected by the Federal Confidentiality of Alcohol and Drug Abuse Patient Records regulations: The Federal rules restrict any use of the information to criminally investigate or prosecute any alcohol or drug abuse patient.[facility] HospitalIn the event this information is protected by the Federal Confidentiality of Alcohol and Drug Abuse Patient Records regulations: The Federal rules restrict any use of the information to criminally investigate or prosecute any alcohol or drug abuse patient.[facility] HospitalIn the event this information is protected by the Federal Confidentiality of Alcohol and Drug Abuse Patient Records regulations: The Federal rules restrict any use of the information to criminally investigate or prosecute any alcohol or drug abuse patient.[facility] HospitalIn the event this information is protected by the Federal Confidentiality of Alcohol and Drug Abuse Patient Records regulations: The Federal rules restrict any use of the information to criminally investigate or prosecute any alcohol or drug abuse patient.[facility] HospitalIn the event this information is protected by the Federal Confidentiality of Alcohol and Drug Abuse Patient Records regulations: The Federal rules restrict any use of the information to criminally investigate or prosecute any alcohol or drug abuse patient.[facility] HospitalIn the event this information is protected by the Federal Confidentiality of Alcohol and Drug Abuse Patient Records regulations: The Federal rules restrict any use of the information to criminally investigate or prosecute any alcohol or drug abuse patient.[facility] HospitalIn the event this information is protected by the Federal Confidentiality of Alcohol and Drug Abuse Patient Records regulations: The Federal rules restrict any use of the information to criminally investigate or prosecute any alcohol or drug abuse patient.[facility] HospitalIn the event this information is protected by the Federal Confidentiality of Alcohol and Drug Abuse Patient Records regulations: The Federal rules restrict any use of the information to criminally investigate or prosecute any alcohol or drug abuse patient.[facility] HospitalIn the event this information is protected by the Federal Confidentiality of Alcohol and Drug Abuse Patient Records regulations: The Federal rules restrict any use of the information to criminally investigate or prosecute any alcohol or drug abuse patient.[facility] HospitalIn the event this information is protected by the Federal Confidentiality of Alcohol and Drug Abuse Patient Records regulations: The Federal rules restrict any use of the information to criminally investigate or prosecute any alcohol or drug abuse patient.[facility] HospitalIn the event this information is protected by the Federal Confidentiality of Alcohol and Drug Abuse Patient Records regulations: The Federal rules restrict any use of the information to criminally investigate or prosecute any alcohol or drug abuse patient.[facility] HospitalIn the event this information is protected by the Federal Confidentiality of Alcohol and Drug Abuse Patient Records regulations: The Federal rules restrict any use of the information to criminally investigate or prosecute any alcohol or drug abuse patient.[facility] HospitalIn the event this information is protected by the Federal Confidentiality of Alcohol and Drug Abuse Patient Records regulations: The Federal rules restrict any use of the information to criminally investigate or prosecute any alcohol or drug abuse patient.[facility] HospitalIn the event this information is protected by the Federal Confidentiality of Alcohol and Drug Abuse Patient Records regulations: The Federal rules restrict any use of the information to criminally investigate or prosecute any alcohol or drug abuse patient.[facility] HospitalIn the event this information is protected by the Federal Confidentiality of Alcohol and Drug Abuse Patient Records regulations: The Federal rules restrict any use of the information to criminally investigate or prosecute any alcohol or drug abuse patient.[facility] HospitalIn the event this information is protected by the Federal Confidentiality of Alcohol and Drug Abuse Patient Records regulations: The Federal rules restrict any use of the information to criminally investigate or prosecute any alcohol or drug abuse patient.[facility] HospitalIn the event this information is protected by the Federal Confidentiality of Alcohol and Drug Abuse Patient Records regulations: The Federal rules restrict any use of the information to criminally investigate or prosecute any alcohol or drug abuse patient.[facility] HospitalIn the event this information is protected by the Federal Confidentiality of Alcohol and Drug Abuse Patient Records regulations: The Federal rules restrict any use of the information to criminally investigate or prosecute any alcohol or drug abuse patient.[facility] HospitalIn the event this information is protected by the Federal Confidentiality of Alcohol and Drug Abuse Patient Records regulations: The Federal rules restrict any use of the information to criminally investigate or prosecute any alcohol or drug abuse patient.[facility] HospitalIn the event this information is protected by the Federal Confidentiality of Alcohol and Drug Abuse Patient Records regulations: The Federal rules restrict any use of the information to criminally investigate or prosecute any alcohol or drug abuse patient.[facility] HospitalIn the event this information is protected by the Federal Confidentiality of Alcohol and Drug Abuse Patient Records regulations: The Federal rules restrict any use of the information to criminally investigate or prosecute any alcohol or drug abuse patient.[facility] HospitalIn the event this information is protected by the Federal Confidentiality of Alcohol and Drug Abuse Patient Records regulations: The Federal rules restrict any use of the information to criminally investigate or prosecute any alcohol or drug abuse patient.[facility] HospitalIn the event this information is protected by the Federal Confidentiality of Alcohol and Drug Abuse Patient Records regulations: The Federal rules restrict any use of the information to criminally investigate or prosecute any alcohol or drug abuse patient.[facility] HospitalIn the event this information is protected by the Federal Confidentiality of Alcohol and Drug Abuse Patient Records regulations: The Federal rules restrict any use of the information to criminally investigate or prosecute any alcohol or drug abuse patient.[facility] HospitalIn the event this information is protected by the Federal Confidentiality of Alcohol and Drug Abuse Patient Records regulations: The Federal rules restrict any use of the information to criminally investigate or prosecute any alcohol or drug abuse patient.[facility] HospitalIn the event this information is protected by the Federal Confidentiality of Alcohol and Drug Abuse Patient Records regulations: The Federal rules restrict any use of the information to criminally investigate or prosecute any alcohol or drug abuse patient.[facility] HospitalIn the event this information is protected by the Federal Confidentiality of Alcohol and Drug Abuse Patient Records regulations: The Federal rules restrict any use of the information to criminally investigate or prosecute any alcohol or drug abuse patient.[facility] HospitalIn the event this information is protected by the Federal Confidentiality of Alcohol and Drug Abuse Patient Records regulations: The Federal rules restrict any use of the information to criminally investigate or prosecute any alcohol or drug abuse patient.[facility] HospitalIn the event this information is protected by the Federal Confidentiality of Alcohol and Drug Abuse Patient Records regulations: The Federal rules restrict any use of the information to criminally investigate or prosecute any alcohol or drug abuse patient.[facility] HospitalIn the event this information is protected by the Federal Confidentiality of Alcohol and Drug Abuse Patient Records regulations: The Federal rules restrict any use of the information to criminally investigate or prosecute any alcohol or drug abuse patient.[facility] HospitalIn the event this information is protected by the Federal Confidentiality of Alcohol and Drug Abuse Patient Records regulations: The Federal rules restrict any use of the information to criminally investigate or prosecute any alcohol or drug abuse patient.[facility] HospitalIn the event this information is protected by the Federal Confidentiality of Alcohol and Drug Abuse Patient Records regulations: The Federal rules restrict any use of the information to criminally investigate or prosecute any alcohol or drug abuse patient.[facility] HospitalIn the event this information is protected by the Federal Confidentiality of Alcohol and Drug Abuse Patient Records regulations: The Federal rules restrict any use of the information to criminally investigate or prosecute any alcohol or drug abuse patient.[facility] HospitalIn the event this information is protected by the Federal Confidentiality of Alcohol and Drug Abuse Patient Records regulations: The Federal rules restrict any use of the information to criminally investigate or prosecute any alcohol or drug abuse patient.[facility] HospitalIn the event this information is protected by the Federal Confidentiality of Alcohol and Drug Abuse Patient Records regulations: The Federal rules restrict any use of the information to criminally investigate or prosecute any alcohol or drug abuse patient.[facility] HospitalIn the event this information is protected by the Federal Confidentiality of Alcohol and Drug Abuse Patient Records regulations: The Federal rules restrict any use of the information to criminally investigate or prosecute any alcohol or drug abuse patient.[facility] HospitalIn the event this information is protected by the Federal Confidentiality of Alcohol and Drug Abuse Patient Records regulations: The Federal rules restrict any use of the information to criminally investigate or prosecute any alcohol or drug abuse patient.[facility] HospitalIn the event this information is protected by the Federal Confidentiality of Alcohol and Drug Abuse Patient Records regulations: The Federal rules restrict any use of the information to criminally investigate or prosecute any alcohol or drug abuse patient.[facility] HospitalIn the event this information is protected by the Federal Confidentiality of Alcohol and Drug Abuse Patient Records regulations: The Federal rules restrict any use of the information to criminally investigate or prosecute any alcohol or drug abuse patient.[facility] HospitalIn the event this information is protected by the Federal Confidentiality of Alcohol and Drug Abuse Patient Records regulations: The Federal rules restrict any use of the information to criminally investigate or prosecute any alcohol or drug abuse patient.[facility] HospitalIn the event this information is protected by the Federal Confidentiality of Alcohol and Drug Abuse Patient Records regulations: The Federal rules restrict any use of the information to criminally investigate or prosecute any alcohol or drug abuse patient.[facility] HospitalIn the event this information is protected by the Federal Confidentiality of Alcohol and Drug Abuse Patient Records regulations: The Federal rules restrict any use of the information to criminally investigate or prosecute any alcohol or drug abuse patient.[facility] HospitalIn the event this information is protected by the Federal Confidentiality of Alcohol and Drug Abuse Patient Records regulations: The Federal rules restrict any use of the information to criminally investigate or prosecute any alcohol or drug abuse patient.[facility] Care Teams (unrecognized sec tion and content) Insights Strategist Relationship Specialty Start Date End Date Herman Murray MD [facility] [place] [address] PCP - General Family Practice 09/22/15 Insights Strategist Relationship Specialty Start Date End Date Herman Murray MD [address] [place] [address] PCP - General Family Practice 09/22/15 Insights Strategist Relationship Specialty Start Date End Date Herman Murray MD [address] [place] [address] PCP - General Family Practice 09/22/15 Insights Strategist Relationship Specialty Start Date End Date Herman Murray MD [address] [place] [address] [place] [address] PCP - General Family Practice 09/22/15 Insights Strategist Relationship Specialty Start Date End Date Herman Murray MD [address] [place] [address] [place] [address] PCP - General Family Practice 09/22/15 Insights Strategist Relationship Specialty Start Date End Date Herman Murray MD [address] [place] [address] [place] [address] PCP - General Family Practice 09/22/15 Insights Strategist Relationship Specialty Start Date End Date Herman Murray MD [address] [place] [address] PCP - General Family Practice 09/22/15 Team Status: Active Member Role Status Dates Dr. Herman Murray MD Family Provider Active Dr. Herman Murray MD Primary Care Provider Active Team Status: Inactive Member Role Status Dates Dr. Herman Murray MD Primary Care Provider Active Dr. Мария Perdomo MD Attending Provider, Referring Provider Active Insights Strategist Relationship Specialty Start Date End Date Herman Murray MD [address] [place] [address] PCP - General Family Medicine 09/22/15 Insights Strategist Relationship Specialty Start Date End Date Herman Murray MD [address] [place] [address] PCP - General Family Medicine 09/22/15 Insights Strategist Relationship Specialty Start Date End Date Herman Murray MD [address] [place] [address] PCP - General Family Medicine 09/22/15 Insights Strategist Relationship Specialty Start Date End Date Herman Murray MD [address] [place] [address] PCP - General Family Medicine 09/22/15 Insights Strategist Relationship Specialty Start Date End Date Herman Murray MD [address] [place] [address] PCP - General Family Medicine 09/22/15 Team Status: Inactive Member Role Status Dates Dr. Herman Murray MD Primary Care Provider Active Dr. Sera Gregory MD Emergency Provider Active Team Status: Inactive Member Role Status Dates Dr. Herman Murray MD Primary Care Provider Active Dr. Sera Gregory MD Attending Provider, Emergency Provider Active Team Status: Active Member Role Status Dates Dr. Herman Murray MD Primary Care Provider Active KITTY Peterson Attending Provider, Referring Provide r Active Insights Strategist Relationship Specialty Start Date End Date Herman Murray MD [address] [place] [address] PCP - General Family Medicine 09/22/15 Insights Strategist Relationship Specialty Start Date End Date Herman Murray MD [address] [place] [address] PCP - General Family Medicine 09/22/15 Insights Strategist Relationship Specialty Start Date End Date Terese Ortiz PA [address] [place] [phone] PCP - General Physician School Admissions Representative 08/08/23 Insights Strategist Relationship Specialty Start Date End Date Herman Murray MD [address] [place] [address] PCP - General Family Medicine 09/22/15 Insights Strategist Relationship Specialty Start Date End Date Herman Murray MD [address] [place] [address] PCP - General Family Medicine 09/22/15 Insights Strategist Relationship Specialty Start Date End Date Terese Ortiz PA [address] [place] [phone] PCP - General Physician School Admissions Representative 08/08/23 Insights Strategist Relationship Specialty Start Date End Date Herman Murray MD [address] [place] [address] PCP - General Family Medicine 09/22/15 Insights Strategist Relationship Specialty Start Date End Date Terese Ortiz PA [address] [place] [phone] PCP - General Physician School Admissions Representative 08/08/23 Insights Strategist Relationship Specialty Start Date End Date Terese Ortiz PA [address] [place] [id number] PCP - General Physician School Admissions Representative 08/08/23 Insights Strategist Relationship Specialty Start Date End Date Herman Murray MD [address] [place], [place] [address] PCP - General Family Medicine 09/22/15 Team Status: Inactive Member Role Status Dates Dr. Herman Murray MD Primary Care Provider Active KITTY Peterson Attending Provider, Referring Provide r Active Insights Strategist Relationship Specialty Start Date End Date Herman Murray MD [address] [place], [place] [id number] PCP - General Family Medicine 01/23/24 Insights Strategist Relationship Specialty Start Date End Date Herman Murray MD [address] [place], [place] [id number] PCP - General Family Medicine 01/23/24 Insights Strategist Relationship Specialty Start Date End Date Herman Murray MD [address] [place], [place] [id number] PCP - General Family Medicine 01/23/24 Insights Strategist Relationship Specialty Start Date End Date Herman Murray MD [address] [place], [place] [address] PCP - General Family Medicine 09/22/15 Insights Strategist Relationship Specialty Start Date End Date Herman Murray MD [address] [place], [place] [address] PCP - General Family Medicine 09/22/15 Team Status: Inactive Member Role Status Dates Dr. Herman Murray MD Primary Care Provider, Other P daniel Active Dr. Мария Perdomo MD Attending Provider, Referring Provider Active Insights Strategist Relationship Specialty Start Date End Date Herman Murray MD [address] [place] [address] PCP - General Family Medicine 09/22/15 Insights Strategist Relationship Specialty Start Date End Date Herman Murray MD [address] [place] [address] PCP - General Family Medicine 09/22/15 Insights Strategist Relationship Specialty Start Date End Date Herman Murray MD [address] [place] [address] PCP - General Family Medicine 09/22/15 Insights Strategist Relationship Specialty Start Date End Date Herman Murray MD [address] [place] [address] PCP - General Family Medicine 09/22/15 Insights Strategist Relationship Specialty Start Date End Date Herman Murray MD [address] [place] [address] PCP - General Family Medicine 09/22/15 Insights Strategist Relationship Specialty Start Date End Date Herman Murray MD [address] [place] [address] PCP - General Family Medicine 09/22/15 Insights Strategist Relationship Specialty Start Date End Date Herman Murray MD [address] [place] [address] PCP - General Family Medicine 09/22/15 Yen Martinez, KAYCE.RETAIL [employer]S PROFESSIONAL [address] [place] [address] Warehouse Shift Supervisor Family Medicine 10/17/24 Eri Loza PA-C [address] [place] [address] Warehouse Shift Supervisor Family Medicine 10/17/24 Insights Strategist Relationship Specialty Start Date End Date Herman Murray MD [address] [place] [address] PCP - General Family Medicine 09/22/15 Yen Martinez, KAYCE.RETAIL [employer]S PROFESSIONAL [address] [place] [address] Warehouse Shift Supervisor Family Medicine 10/17/24 Eri Loza PA-C [address] [place] [address] Warehouse Shift Supervisor Family Medicine 10/17/24 Insights Strategist Relationship Specialty Start Date End Date Herman Murray MD [address] [place] [address] PCP - General Family Medicine 09/22/15 Yen Martinez, DENTAL 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.RETAIL [employer]S PROFESSIONAL [address] [place] [address] Warehouse Shift Supervisor Family Medicine 10/17/24 Eri Loza PA-C [address] [place] [address] Warehouse Shift Supervisor Family Medicine 10/17/24 Insights Strategist Relationship Specialty Start Date End Date Herman Murray MD [address] [place] [address] PCP - General Family Medicine 09/22/15 Yen Martinez APRN.[employer]TA[employer] PROFESSIONAL [address] [place] [address] Warehouse Shift Supervisor Family Medicine 10/17/24 Eri Loza PA-C [address] [place] [address] Warehouse Shift Supervisor Family [facility] 10/17/24 Insights Strategist Relationship Specialty Start Date End Date Herman Murray MD [address] [place] [address] PCP - General Family Medicine 09/22/15 Yen Martinez APRN.[employer]TA[employer]S PROFESSIONAL [address] [place] [address] Warehouse Shift Supervisor Family Medicine 10/17/24 Eri Loza PA-C [address] [place] [address] [facility] 10/17/24 Insights Strategist Relationship Specialty Start Date End Date Herman Murray MD [address] [place] [address] PCP - General Family Medicine 09/22/15 Yen Martinez, DENTAL 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.RETAIL [employer]S PROFESSIONAL [address] [place] [address] Warehouse Shift Supervisor Family Medicine 10/17/24 Eri Loza PA-C [address] [place] [address] Warehouse Shift Supervisor Family Medicine 10/17/24 Insights Strategist Relationship Specialty Start Date End Date Herman Murray MD [address] [place] [address] PCP - General Family Medicine 02/15/25 Yen Martinez APRN.RETAIL [employer]S PROFESSIONAL [address] [place] [address] Warehouse Shift Supervisor Family Medicine 10/17/24 Eri Loza PA-C [address] [place] [address] Warehouse Shift Supervisor Family Medicine 10/17/24 Insights Strategist Relationship Specialty Start Date End Date Herman Murray MD [address] [place] [address] PCP - General Family Medicine 02/15/25 Yen Martinez APRN.[employer]TA[employer] PROFESSIONAL [address] [place] [address] Warehouse Shift Supervisor Family Medicine 10/17/24 Eri Loza PA-C [address] [place] [address] Warehouse Shift Supervisor Family Medicine 10/17/24 Insights Strategist Relationship Specialty Start Date End Date Herman Murray MD [address] [place] [address] PCP - General Family Medicine 02/15/25 Yen Martinez APRN.RETAIL PARTS PROFESSIONAL [facility] [place] [address] Warehouse Shift Supervisor Family Medicine 10/17/24 Eri Loza PA-C [address] [place] [address] Warehouse Shift Supervisor Family Medicine 10/17/24 Insights Strategist Relationship Specialty Start Date End Date Herman Murray MD [address] [place] [address] PCP - General Family Medicine 02/15/25 Yen Martinez, KAYCE.[employer]TAIL [employer]S PROFESSIONAL [address] [place] [address] Warehouse Shift Supervisor Family Medicine 10/17/24 Eri Loza PA-C [address] [place] [address] [facility] 10/17/24 Insights Strategist Relationship Specialty Start Date End Date Herman Murrya MD [address] [place] [address] PCP - General Family Medicine 02/15/25 Yen Martinez, DENTAL 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.RETAIL [employer]S PROFESSIONAL [facility] [place] [address] Warehouse Shift Supervisor Family Medicine 10/17/24 Eri Loza PA-C [address] [place] [address] Warehouse Shift Supervisor Family Medicine 10/17/24 Insights Strategist Relationship Specialty Start Date End Date Herman Murray MD [address] [place] [address] PCP - General Family Medicine 02/15/25 Yen Martinez, DENTAL 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.RETA[employer] PROFESSIONAL [address] [place] [address] Warehouse Shift Supervisor Family Medicine 10/17/24 Eri Loza PA-C [address] [place] [address] Warehouse Shift Supervisor Family Medicine 10/17/24 Team Status: Active Member Role Status Dates Dr. Herman Murray MD Primary Care Provider Active Team Status: Inactive Member Role Status Dates Dr. Herman Murray MD Primary Care Provider Active Start: October 29, 2024 End: October 29, 2024 Dr. Мария Perdomo MD Attending Provider Active Start: October 29, 2024 End: October 29, 2024 Dr. Мария Perdomo MD Referring Provider Active Start: October 29, 2024 End: October 29, 2024 Team Status: Inactive Member Role Status Dates Dr. Herman Murray MD Primary Care Provider Active Start: December 01, 2024 End: December 01, 2024 Dr. Мария Perdomo MD Attending Provider Active Start: December 01, 2024 End: December 01, 2024 Dr. Мария Perdomo MD Referring Provider Active Start: December 01, 2024 End: December 01, 2024 Team Status: Inactive Member Role Status Dates Dr. Herman Murray MD Primary Care Provider Active Start: December 13, 2024 End: December 13, 2024 Dr. Jo Abarca DO Attending Provider Active Start: December 13, 2024 End: December 13, 2024 Dr. Jo Abarca DO Referring Provider Active Start: December 13, 2024 End: December 13, 2024 Dr. Jo Abarca DO Emergency Provider Active Start: December 13, 2024 End: December 13, 2024 Team Status: Inactive Member Role Status Dates Dr. Herman Murray MD Primary Care Provider Active Start: February 22, 2025 End: February 22, 2025 Dr. Herman Murray MD Attending Provider Active Start: February 22, 2025 End: February 22, 2025 Dr. Herman Murray MD Referring Provider Active Start: February 22, 2025 End: February 22, 2025 Dr. Мария Perdomo MD Other Provider Active St art: February 22, 2025 End: February 22, 2025 Insights Strategist Relationship Specialty Start Date End Date Herman Murray MD [address] [place] [address] PCP - General Family Medicine 02/15/25 Yen Martinez APRN.RETAIL [employer]S PROFESSIONAL [facility] [place] [address] Warehouse Shift Supervisor Family Medicine 10/17/24 Eri Loza PA-C [address] [place] [address] Warehouse Shift Supervisor Family Medicine 10/17/24 Insights Strategist Relationship Specialty Start Date End Date Herman Murray MD [address] [place] [address] PCP - General Family Medicine 02/15/25 Yen Martinez APRN.[employer]TA[employer] PROFESSIONAL [address] [place] [address] Warehouse Shift Supervisor Family Medicine 10/17/24 Eri Loza PA-C [address] [place] [address] Warehouse Shift Supervisor Family Medicine 10/17/24 Insights Strategist Relationship Specialty Start Date End Date Herman Murray MD [address] [place] [address] PCP - General Family Medicine 02/15/25 Yen Martinez APRN.RETAIL [employer]S PROFESSIONAL [facility] [place] [address] Warehouse Shift Supervisor Family Medicine 10/17/24 Eri Loza PA-C [address] [place] [address] [facility] 10/17/24 Insights Strategist Relationship Specialty Start Date End Date Herman Murray MD [address] [place] [address] PCP - General [facility] Medicine 02/15/25 Yen Martinez, DENTAL 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.RETAIL [employer]S PROFESSIONAL [address] [place] [address] [facility] 10/17/24 Eri Loza PA-C [address] [place] [address] [facility] 10/17/24 Insights Strategist Relationship Specialty Start Date End Date Herman Murray MD [address] [place] [address] PCP - [facility] Medicine 02/15/25 Yen Martinez, DENTAL 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.RETAIL [employer]S PROFESSIONAL [address] [place] [address] [facility] 10/17/24 Eri Loza PA-C [address] [place], [place] [address] [facility] 10/17/24 Team Status: Inactive Member Role Status Dates Dr. Herman Murray MD Primary Care Provider Active Start: March 12, 2025 End: March 12, 2025 Dr. Herman Murray MD Attending Provider Active Start: March 12, 2025 End: March 12, 2025 Dr. Herman Murray MD Referring Provider Active Start: March 12, 2025 End: March 12, 2025 Dr. Мария Perdomo MD Other Provider Active St art: March 12, 2025 End: March 12, 2025 Insights Strategist Relationship Specialty Start Date End Date Herman Murray MD [address] [place] [address] PCP - General Family Medicine 02/15/25 Yen Martinez APRN.RETA[employer]S PROFESSIONAL [address] [place] [address] Warehouse Shift Supervisor Family Medicine 10/17/24 Eri Loza PA-C [address] [place] [address] Warehouse Shift Supervisor Family Medicine 10/17/24 Insights Strategist Relationship Specialty Start Date End Date Herman Murray MD [address] [place] [address] PCP - General Family Medicine 02/15/25 Yen Martinez APRN.RETAIL [employer] PROFESSIONAL [address] [place] [address] Warehouse Shift Supervisor Family Medicine 10/17/24 03/28/25 Eri Loza PA-C [address] [place] [address] Warehouse Shift Supervisor Family Medicine 10/17/24 04/11/25 Yen Martinez APRN.RETAIL [employer]S PROFESSIONAL [address] [place] [address] Warehouse Shift Supervisor Family Medicine 04/12/25 Eri Loza PA-C [address] [place] [address] Warehouse Shift Supervisor Family [facility] 04/12/25 Insights Strategist Relationship Specialty Start Date End Date Herman Murray MD [address] [place] [address] PCP - General Family Medicine 02/15/25 Yen Martinez APRN.RETAIL [employer]S PROFESSIONAL [address] [place], [place] [address] [facility] 10/17/24 03/28/25 Eri Loza PA-C [address] [place], [place] [address] [facility] 10/17/24 04/11/25 Yen Martinez APRN.RETAIL [employer]S PROFESSIONAL [address] [place], [place] [address] [facility] 04/12/25 Eri Loza PA-C [address] [place] [address] [facility] 04/12/25 Team Status: Active Member Role/Relationship Status Dates Dr. Herman Murray MD Primary Care Provider Active Team Status: Inactive Member Role/Relationship Status Dates Dr. Herman Murray MD Primary Care Provider Active Start: February 22, 2025 End: February 22, 2025 Dr. Herman Murray MD Attending Provider Active Start: February 22, 2025 End: February 22, 2025 Dr. Herman Murray MD Referring Provider Active Start: February 22, 2025 End: February 22, 2025 Dr. Мария Perdomo MD Other Provider Active St art: February 22, 2025 End: February 22, 2025 Team Status: Inactive Member Role/Relationship Status Dates Dr. Herman Murray MD Primary Care Provider Active Start: March 12, 2025 End: March 12, 2025 Dr. Herman Murray MD Attending Provider Active Start: March 12, 2025 End: March 12, 2025 Dr. Herman Murray MD Referring Provider Active Start: March 12, 2025 End: March 12, 2025 Dr. Мария Perdomo MD Other Provider Active St art: March 12, 2025 End: March 12, 2025 Team Status: Inactive Member Role/Relationship Status Dates Dr. Herman Murray MD Primary Care Provider Active Start: March 30, 2025 End: March 30, 2025 Dr. Мария Perdomo MD Attending Provider Active Start: March 30, 2025 End: March 30, 2025 Dr. Мария Perdomo MD Referring Provider Active Start: March 30, 2025 End: March 30, 2025 Team Status: Inactive Member Role/Relationship Status Dates Dr. Herman Murray MD Primary Care Provider Active Start: May 17, 2025 End: May 17, 2025 Dr. Мария Perdomo MD Attending Provider Active Start: May 17, 2025 End: May 17, 2025 Dr. Мария Perdomo MD Referring Provider Active Start: May 17, 2025 End: May 17, 2025 Reason for Visit (unrecogniz ed section and content) Reason Comments Results Reason Comments Consult gallstones Specialty Diagnoses / Procedures Referred By Bernabe iqbal Referred To Contact General Surgery Diagnoses Gall stones Epigastric pain Procedures CONSULT TO GENERAL SURGERY OFFICE/OUTPATIENT NEW HIGH MDM 60-74 MINUTES Eri Loza PA-C [address] [place] [address] Referral ID Status Reason Start Date Expiration Date V isits Requested Visits Authorized [id number] Closed PCP Requested Referral 02/09/2022 02/09/2023 1 1 Reason Comments 02-15-2022 Melo Gallaghere Metcalf Reason Comments FMLA Paperwork Reason Comments Post Op Follow Up lap dinorah Reason Comments Recheck patient is here red blotches on back on head in hairline Reason Comments Recheck Reason Comments Us Procedure Results Reason Comments Results Reason Comments Physical Reason Comments Patient Question Reason Comments Fall Hurt right ankle wit h fall this am Reason Comments New Patient DOI 05/15/23 Right dis joshua radius fracture, closed tx, referred from [facility] for persistent numbness and swelling, Hx of RA in the finger IP joints Specialty Diagnoses / Procedures Referred By Bernabe iqbal Referred To Contact Orthopedic Surgery Diagnoses Other intraarticular fracture of lower end of right radius, subsequent encounter for closed fracture with routine healing Rheumatoid arthritis, unspecified (HCC) Anesthesia of skin Procedures LA OFFICE/OUTPATIENT NEW MODERATE MDM 45-59 MINUTES Terese Ortiz PA [address] [address] Ina Peterson MD [address] [facility] [address] [place] [address] Referral ID Status Reason Start Date Expiration Date Visits Re quested Visits Authorized [id number] Closed 07/30/2023 07/30/2024 1 1 Reason Comments Fax EMG Results Reason Comments Outside [id number] Ordered Reason Comments Follow-up Right wrist CRPS and Right shoulder pain Reason Comments Rash Reason Comments Follow-up CRPS Right wrist and Right shoulder Ad Cap Reason Onset Date Comments Other 01/27/2024 Facility for [facility] Reason Comments Physical Reason Comments Results, Lab Reason Comments Ext / [facility] consult Reason Comments Ext / Labs Reason Comments Orders Reason Comments Imm/Inj Reason Comments Results Outside labs Reason Comments ER F/U [facility] Reason Comments ER F/U Reason Comments Cough Reason Comments Physical Reason Comments Radiology US Specialty Diagnoses / Procedures Referred By Contac t Referred To Contact US IMAGING Diagnoses Multiple thyroid nodules Procedures US THYROID/PARATHYROID US SOFT TISSUE HEAD & NECK REAL TIME IMGE DOCM Herman Murray MD [address] [place] [address] Phone: tel: fax: [place] [phone] Referral ID Status Reason Start Date Expiration Date V isits Requested Visits Authorized [id number] Closed Auto-Generate d Referral 02/17/2025 03/19/2026 1 1 Reason Comments consult for colonoscopy Specialty Diagnoses / Procedures Referred By Contac t Referred To Contact General Surgery Diagnoses Screening for colon cancer Procedures CONSULT TO GENERAL SURGERY OFFICE/OUTPATIENT [facility] 60 MINUTES Herman Murray MD [address] [place] [address] Phone: tel: fax: Referral ID Status Reason Start Date Expiration Date V isits Requested Visits Authorized [id number] Closed PCP Requested Referral 02/17/2025 02/16/2026 1 1 Reason Onset Date Comments Results 02/20/2025 Reason Onset Date Comments Results 02/22/2025 Reason Comments Well Woman Reason Comments Results [facility] Reason Comments Follow Up Colonoscopy INFORMATION SOURCE (unrecogn ized section and content) DATE CREATED AUTHOR 02/20/2022 [facility] DATE CREATED AUTHOR AUTHOR'S ORGANIZ ATION 02/04/2024 [facility] DATE CREATED AUTHOR AUTHOR'S ORGANIZ ATION 03/31/2025 [facility] DATE CREATED AUTHOR AUTHOR'S ORGANIZ ATION 05/20/2025 [facility] Goals (unrecognized section and content) Goals may be documented in a n alternate sectionGoals may be documented in an alternate sectionGoals may be documented in an alternate sectionGoals may be documented in an alternate sectionGoals may be documented in an alternate sectionGoals may be documented in an alternate sectionGoals may be documented in an alternate sectionGoals may be documented in an alternate sectionGoals may be documented in an alternate sectionGoals may be documented in an alternate sectionGoals may be documented in an alternate sectionGoals may be documented in an alternate sectionGoals may be documented in an alternate sectionGoals may be documented in an alternate sectionGoals may be documented in an alternate sectionGoals may be documented in an alternate sectionGoals may be documented in an alternate sectionGoals may be documented in an alternate section FOR RECORDS PERTAINING TO PATIENTS WHO ARE OR HAVE BEEN ENROLLED IN A CHEMICAL DEPENDENCY/SUBSTANCEABUSE PROGRAM, SOME INFORMATION MAY BE OMITTED. This clinical summary was aggregated from multiple sources. Caution should be exercised in using it in the provision of clinical care. This summary normalizes information from multiple sources, and as a consequence, information in this document may materially change the coding, format and clinical context of patient data. In addition, data may be omitted in some cases. CLINICAL DECISIONS SHOULD BE BASED ON THE PRIMARY CLINICAL RECORDS. [employer] provides no warranty or guarantee of the accuracy or completeness of information in this document.
[2025-07-06 10:02] LABS: Hematocrit 41.1 % (37-47); Hemoglobin 14.1 g/dL (12.0-15.0); Immature Granulocytes Count 0.010 X10^3/uL (0.0-0.0); Mean Corp Hgb Conc 34.3 g/dL (32-36); Mean Corpuscular Volume 91.9 fL (81-99); Mean Platelet Vol. 10.8 fl (6.2-12.0); NRBC Flagged by Analyzer 0 % (0-5); Platelet Count 161 K/mm3 (150-450); RBC Distribution Width CV 12.4 % (11.6-14.6); RBC Distribution Width SD 41.5 fl (35.1-43.9); Red Blood Count 4.47 M/mm3 (4.2-5.4); White Blood Count 4.8 K/mm3 (4.4-11.0)
[2025-07-06 10:20] LABS: AST(SGOT) 21 U/L (<=31); Alanine Aminotransfer ALT/SGPT 31 U/L (<=34); Albumin, Serum 4.4 g/dL (3.5-5.0); Alkaline Phosphatase 52 U/L (35-104); Anion Gap 13 (5-15); BUN 13 mg/dL (4-19); BUN/Creat Ratio 15.2 RATIO (10-20); Calcium,Total 9.2 mg/dL (7.6-11.0); Carbon Dioxide 22.8 mmol/L (21.0-32.0); Chloride 104 mmol/L (98-108); Globulin 2.3 g/dL (2.2-4.2); Glucose 108 mg/dL (70-99); Potassium 3.7 mmol/L (3.3-5.1)
== END | disposition home or self-care (01) ==
LOC: MTLAB 07:15
PROVIDERS: PCP Family Medicine; Referring Provider Internal Medicine Rheumatology; Visit Provider Internal Medicine Rheumatology
DX: M06.09 Rheumatoid arthritis without rheumatoid factor, multiple sites (principal); Z79.899 Other long term (current) drug therapy
CPT/HCPCS: 36415; 80053; 85025

== ENCOUNTER → 2025-08-24 | Outpatient (CLI) | payer BC, SELFPAY ==
[2025-08-24 10:47] LABS: Hematocrit 39.8 % (37-47); Hemoglobin 13.6 g/dL (12.0-15.0); Immature Granulocytes Count 0.010 X10^3/uL (0.0-0.0); Mean Corp Hgb Conc 34.2 g/dL (32-36); Mean Corpuscular Volume 92.3 fL (81-99); Mean Platelet Vol. 11.0 fl (6.2-12.0); NRBC Flagged by Analyzer 0 % (0-5); Platelet Count 197 K/mm3 (150-450); RBC Distribution Width CV 13.5 % (11.6-14.6); RBC Distribution Width SD 45.7 fl (35.1-43.9); Red Blood Count 4.31 M/mm3 (4.2-5.4); White Blood Count 5.2 K/mm3 (4.4-11.0)
[2025-08-24 11:25] LABS: AST(SGOT) 25 U/L (<=31); Alanine Aminotransfer ALT/SGPT 44 U/L (<=34); Albumin, Serum 4.5 g/dL (3.5-5.0); Alkaline Phosphatase 57 U/L (35-104); Anion Gap 11 (5-15); BUN 15 mg/dL (4-19); BUN/Creat Ratio 17.9 RATIO (10-20); Calcium,Total 9.3 mg/dL (7.6-11.0); Carbon Dioxide 25.4 mmol/L (21.0-32.0); Chloride 104 mmol/L (98-108); Globulin 2.2 g/dL (2.2-4.2); Glucose 113 mg/dL (70-99); Potassium 3.7 mmol/L (3.3-5.1)
== END | disposition home or self-care (01) ==
LOC: MTLAB 07:35
PROVIDERS: PCP Family Medicine; Referring Provider Internal Medicine Rheumatology; Visit Provider Internal Medicine Rheumatology
DX: M06.09 Rheumatoid arthritis without rheumatoid factor, multiple sites (principal); Z79.899 Other long term (current) drug therapy
CPT/HCPCS: 36415; 80053; 85025

== ENCOUNTER → 2025-10-26 | Outpatient (CLI) | payer MEDICARE, SELFPAY ==
[2025-10-26 17:44] LABS: Hematocrit 42.7 % (37-47); Hemoglobin 14.6 g/dL (12.0-15.0); Immature Granulocytes Count 0.020 X10^3/uL (0.0-0.0); Mean Corp Hgb Conc 34.2 g/dL (32-36); Mean Corpuscular Volume 92.0 fL (81-99); Mean Platelet Vol. 11.2 fl (6.2-12.0); NRBC Flagged by Analyzer 0 % (0-5); Platelet Count 202 K/mm3 (150-450); RBC Distribution Width CV 12.6 % (11.6-14.6); RBC Distribution Width SD 42.5 fl (35.1-43.9); Red Blood Count 4.64 M/mm3 (4.2-5.4); White Blood Count 10.3 K/mm3 (4.4-11.0)
[2025-10-26 18:07] LABS: AST(SGOT) 29 U/L (<=31); Alanine Aminotransfer ALT/SGPT 41 U/L (<=34); Albumin, Serum 4.9 g/dL (3.5-5.0); Alkaline Phosphatase 58 U/L (35-104); Anion Gap 13 (5-15); BUN 12 mg/dL (4-19); BUN/Creat Ratio 12.5 RATIO (10-20); Calcium,Total 9.9 mg/dL (7.6-11.0); Carbon Dioxide 23.4 mmol/L (21.0-32.0); Chloride 103 mmol/L (98-108); Globulin 2.5 g/dL (2.2-4.2); Glucose 106 mg/dL (70-99); Potassium 4.0 mmol/L (3.3-5.1)
[2025-10-28 14:08] LABS: QNTFERON TB Mitogen Value > 10.00 IU/mL (.); QNTFERON TB Nil Value 0.08 IU/mL (.); QNTFERON TB1+ Ag Value 0.09 IU/mL (.); QNTFERON TB2+ Ag Value 0.10 IU/mL (.); QNTIFERON TB Positive Criteria Negative (Negative)
== END | disposition home or self-care (01) ==
PROVIDERS: PCP Family Medicine; Referring Provider Internal Medicine Rheumatology; Visit Provider Internal Medicine Rheumatology
DX: M06.09 Rheumatoid arthritis without rheumatoid factor, multiple sites (principal); Z79.899 Other long term (current) drug therapy
CPT/HCPCS: 36415; 80053; 85025; 86480